=== PATIENT | female | born 1950 | race Caucasian/White ===

== ENCOUNTER → 2016-10-31 | Outpatient (REF) | payer MEDICARE, MEDICAID ==
[~2016-10-31] MED LIST: /ONDA4TA SL; AMOX875T PO; BACIDCA PO; BACITAB3 PO; CALC25TA PO; CELE20TA PO; CETI10TA PO; COMP1TAB PO; CYCL1CAP2 PO; DEXTPOW57 IV; DICY20TA PO; DICY20TA11 PO; DRIS50002 PO; EPOG1000 IV; FLAG500T PO; FLON0.054; FLOV110A IN; FLOVENT INH; FLUT11IN INH; GABI4TAB PO; GAS80CHW PO; GLUC1INJ2 SC; GLUC4CHW PO; GLYC3350 PO; INSUH10VL SC; IPRASOL4 NEB; LEVO100T5 PO; LISI40TAB PO; MEGE400S9 PO; METO25TAB PO; METO50TA2 PO; NEUR600T PO; NYST50SS SS; OCEA0.654; OXYC1TAB23 PO; PEG1POW PO; PERCOCET PO; PHEN1SUP6 IV; PRAV40TA PO; PRED50TA PO; PRED5TA PO; PRIN5TAB PO; PROA1AER INH; PROAAER IN; PROB1TAB PO; PROBCAP4 PO; PROC5TA PO; PROT1TAB2 PO; ROBISYP5 PO; SALI0.9I2 IV; SPIR25TA2 PO; STOO100C PO; SULF1TAB72 PO; SYNT100T PO; SYNT125T PO; TYLE167L PO; ULTR50TA PO; VANC12CA PO; VERA120T2 PO; VERA1TAB10 PO; ZOFR20TA PO; ZOFR4SOL IV; ZYRT10TA2 PO; cytoxan PO
[2016-10-31 10:31] LABS: INR 3.04
== END ==
PROVIDERS: ATTEND Family Medicine
DX: Z51.81 Encounter for therapeutic drug level monitoring (principal); Z79.01 Long term (current) use of anticoagulants

== ENCOUNTER → 2016-11-07 | Outpatient (REF) | payer MEDICARE, MEDICAID ==
[2016-11-07 10:24] LABS: INR 3.41
== END ==
PROVIDERS: ATTEND Student in an Organized Health Care Education/Training Program
DX: Z51.81 Encounter for therapeutic drug level monitoring (principal); Z79.01 Long term (current) use of anticoagulants

== ENCOUNTER 2016-11-28 14:46 | Emergency (ER) | payer MEDICARE, MEDICAID ==
--- NOTE | 2016-11-28 16:03 | REP ---
Left ankle four views: There is no fracture or dislocation. There is diffuse demineralization Mineralization and joint spaces are normal. There are no calcifications or foreign bodies. Impression: There is diffuse demineralization. No fracture or dislocation. Signed by Karan Mclain MD 11/28/2016 03:54 P
--- NOTE | 2016-11-28 16:08 | EDDOCDS ---
Nurse's Notes [facility] Name: Rocío Jim Age: 65 yrs Sex: Female : 1950 Arrival Date: 11/28/2016 Time: 14:46 Bed TR8 Private MD: Jovita Cantu Diagnosis: Sprain of unspecified ligament of left ankle Presentation: 11/28 14:50 Presenting complaint: Patient states: turned her left ankle a while ago (11am today) hs1 and patient states that the nurse thought she should have it looked at as patient was limping. The patients lower extremity has obvious swelling present on examination. The charge nurse has been notified. Adult Sepsis Screening: The patient does not have new or worsening altered mentation. Patient's respiratory rate is less than 22. Systolic blood pressure is greater than 100. Patient has a qSOFA score of 0- Negative Sepsis Screen. Suicide/Homicide risk assessment- the patient denies having any suicidal and/or homicidal ideations and does not present with any other emotional, behavioral or mental health complaints. Status: Patient is not a financial services consultant or dependent. Transition of care: patient was received from [facility]-assisted. 14:50 Acuity: OVI Level 4 hs1 14:50 Method Of Arrival: Walkin/Carried/Asstd hs1 Triage Assessment: 15:03 General: Appears in no apparent distress, Behavior is appropriate for age, cooperative. hs1 Pain: Location: anterior aspect of left ankle Pain currently is 0 out of 10 on a pain scale. Quality of pain is described as aching, pain is only when standing. Musculoskeletal: Capillary refill < 3 seconds No deformity noted Reports not being able to stand on left ankle. Historical: - Allergies: Fiorinal; - Home Meds: 1. acetaminophen 325 mg Oral tab 2 tabs as needed (Last dose: 11/28/2016 05:00) 2. Compazine 10 mg Oral tab as needed (Last dose: 11/28/2016 05:00) 3. Protonix 40 mg Oral TbEC 1 tab 2 times per day (Last dose: 11/28/2016 05:00) 4. Steph-Yovani 0.8 mg oral tab daily (Last dose: 11/28/2016 05:00) 5. Bentyl 20 mg Oral tab 1 tab 4 times per day (Last dose: 11/28/2016 12:00) 6. Flovent Inhl 110 mcg twice a day (Last dose: 11/28/2016 05:00) 7. Bacid 1 billion-250 cell-mg oral tab daily (Last dose: 11/28/2016 05:00) 8. Fish Oil 300-1,000 mg Oral cpDR 9. Calcium + Vitamin D 600 mg calcium- 200 unit Oral tab 10. levothyroxine 150 mcg Oral tab 1 tab once daily (Last dose: 11/28/2016 05:00) 11. metoprolol tartrate 50 mg Oral tab 1 tab 2 times per day (Last dose: 11/28/2016 05:00) 12. Gabitril 4 mg oral tab 1 tab once daily (Last dose: 11/28/2016 11:00) 13. prednisone 5 mg/5 mL Oral soln once daily (Last dose: 11/28/2016 11:00) 14. Renvela 800 mg oral tab 1 tab 3 times per day (Last dose: 11/28/2016 11:00) 15. Mucinex 600 mg oral Ta12 twice a day (Last dose: 11/28/2016 05:00) 16. Pravachol 40 mg Oral tab 1 tab once daily (Last dose: 11/27/2016) 17. Refresh P.M. 57.3-42.5 % ophthalmic oint daily (Last dose: 11/27/2016) 18. Vitamin B-12 Oral Unknown nightly (Last dose: 11/27/2016) - PMHx: CAUDA EQUINA SYNDROME; COPD; ESRD; Hypertension; Renal Failure with Dialysis; - PSHx: Thyroidectomy; Appendectomy; Hysterectomy; back surgery; - Social history: Smoking status: Patient states former smoker of tobacco. No barriers to communication noted, The patient speaks fluent Jordanian, Speaks appropriately for age. - Family history: Not pertinent. - : The pt / caregiver states he / she is not on anticoagulants. Home medication list is obtained from the facility DEC. - Exposure Risk Screening:: None identified. Screenin:06 Screening information is obtained from the patient. Fall risk: No risks identified. mlb1 Assistance ADL's: requires no assistance with activities of daily living. Abuse/DV Screen: The patient / caregiver reports he/she is: not in a situation that causes fear, pain or injury. Nutritional screening: No deficits noted. Advance Directives: Currently, there is no health care proxy. home support is adequate. Assessment: 16:05 General: Appears in no apparent distress, comfortable, Behavior is appropriate for age, mlb1 cooperative. Pain: Location: left ankle Pain currently is 4 out of 10 on a pain scale. Musculoskeletal: Circulation, motion, and sensation intact Signs and Symptoms of Compartment Syndrome: no signs of compartment syndrome. Vital Signs: 14:49 BP 163 / 73; Pulse 85; Resp 18 S; Temp 98.9(O); Pulse Ox 97% on R/A; Weight 67.13 kg gr2 (R); Height 5 ft. 6 in. (167.64 cm) (R); Pain 5/10; 16:00 BP 180 / 94 LA Sitting (auto/lg); Pulse 81; Resp 20; Temp 99.1; Pulse Ox 95% on R/A; bnb Pain 8/10; 14:49 Body Mass Index 23.89 (67.13 kg, 167.64 cm) gr2 Vitals: 14:49 Log In Time: November 28, 2016 at 14:49. gr2 ED Course: 14:48 Patient visited by Juanis Ruffin. gr2 14:48 Jovita Cantu MD is Private Physician. gr2 14:48 Patient moved to Waiting gr2 14:50 Patient visited by Juanis Ruffin. gr2 14:50 Patient moved to Pre RCE gr2 14:52 Triage Initiated hs1 15:35 Patient visited by Christie Carter RN. mk4 15:35 Patient moved to Triage 3 mk4 15:41 Marco [facility] Elkins FNP [facility]. ke 15:41 Patient visited by Marco A Elkins FNP. ke 15:41 Patient visited by Marco A Elkins FNP. ke 15:55 Jovita Cantu MD is Referral Physician. ke 15:58 Patient visited by Jocelyn Roa. dem1 15:58 AIRCAST APPLIED TO LT ANKLE. dem1 16:01 Patient visited by Leonarda Hennessy PCA. bnb 16:06 Patient moved to TR8 dem1 16:06 No IV's were initiated during this patient's visit. No procedures done that require mlb1 assistance. 16:07 The patient / caregiver is instructed regarding the plan of care and ED course. mlb1 Order Results: There are currently no results for this order. Outcome: 15:56 Discharge ordered by Provider. 16:06 Discharge Assessment: Patient awake, alert and oriented x 3. No cognitive and/or mlb1 functional deficits noted. Patient verbalized understanding of disposition instructions. patient administered narcotics - no. The following High Risk Discharge criteria are identified: None. Discharged to home ambulatory. Condition: good. Discharge instructions given to patient, Instructed on discharge instructions, follow up and referral plans. medication usage, Rest, Ice, Compression and Elevation. Demonstrated understanding of instructions, medications, Pt was receptive of discharge instructions/ teaching. Prescriptions given X. No special radiology studies were completed. Property sent home with patient. 16:07 Patient left the ED. mlb1 Signatures: Marco A Elkins, CHAIR UPHOLSTERER CHAIR UPHOLSTERER Clinton Mcgill RN RN mlb1 Kim Fournier, RN RN hs1 Jocelyn Roa1 Juanis Ruffin2 Christie Carter RN RN mk4 Leonarda Hennessy, OUTDOOR RECREATION SPECIALIST OUTDOOR RECREATION SPECIALIST bnb Corrections: (The following items were deleted from the chart) 14:53 14:50 Presenting complaint: Patient states: turned her left ankle a while ago (11am hs1 today) and patient states that the nurse thought she should have it looked at as patient cannot bear weight. hs1 MTDD
--- NOTE | 2016-11-28 16:08 | EDDOCDS ---
Physician Documentation [facility] Name: Rocío Jim Age: 65 yrs Sex: Female : 1950 Arrival Date: 11/28/2016 Time: 14:46 Bed TR8 Private MD: Jovita Cantu Disposition: 11/28/16 15:56 Discharged to Home/Self Care. Impression: Sprain of unspecified ligament of left ankle. - Condition is Stable. - Discharge Instructions: Elastic Bandage and RICE, Ankle Sprain. - Medication Reconciliation, Local Pharmacy Hours form. - Follow up: Jovita Cantu MD; When: As needed; Reason: Continuance of care. - Problem is an ongoing problem. - Symptoms are unchanged. Historical: - Allergies: Fiorinal; - Home Meds: 1. acetaminophen 325 mg Oral tab 2 tabs as needed (Last dose: 11/28/2016 05:00) 2. Compazine 10 mg Oral tab as needed (Last dose: 11/28/2016 05:00) 3. Protonix 40 mg Oral TbEC 1 tab 2 times per day (Last dose: 11/28/2016 05:00) 4. Steph-Yovani 0.8 mg oral tab daily (Last dose: 11/28/2016 05:00) 5. Bentyl 20 mg Oral tab 1 tab 4 times per day (Last dose: 11/28/2016 12:00) 6. Flovent Inhl 110 mcg twice a day (Last dose: 11/28/2016 05:00) 7. Bacid 1 billion-250 cell-mg oral tab daily (Last dose: 11/28/2016 05:00) 8. Fish Oil 300-1,000 mg Oral cpDR 9. Calcium + Vitamin D 600 mg calcium- 200 unit Oral tab 10. levothyroxine 150 mcg Oral tab 1 tab once daily (Last dose: 11/28/2016 05:00) 11. metoprolol tartrate 50 mg Oral tab 1 tab 2 times per day (Last dose: 11/28/2016 05:00) 12. Gabitril 4 mg oral tab 1 tab once daily (Last dose: 11/28/2016 11:00) 13. prednisone 5 mg/5 mL Oral soln once daily (Last dose: 11/28/2016 11:00) 14. Renvela 800 mg oral tab 1 tab 3 times per day (Last dose: 11/28/2016 11:00) 15. Mucinex 600 mg oral Ta12 twice a day (Last dose: 11/28/2016 05:00) 16. Pravachol 40 mg Oral tab 1 tab once daily (Last dose: 11/27/2016) 17. Refresh P.M. 57.3-42.5 % ophthalmic oint daily (Last dose: 11/27/2016) 18. Vitamin B-12 Oral Unknown nightly (Last dose: 11/27/2016) - PMHx: CAUDA EQUINA SYNDROME; COPD; ESRD; Hypertension; Renal Failure with Dialysis; - PSHx: Thyroidectomy; Appendectomy; Hysterectomy; back surgery; - Social history: Smoking status: Patient states former smoker of tobacco. No barriers to communication noted, The patient speaks fluent Canadian, Speaks appropriately for age. - Family history: Not pertinent. - : The pt / caregiver states he / she is not on anticoagulants. Home medication list is obtained from the facility DEC. - Exposure Risk Screening:: None identified. Vital Signs: 11/28 14:49 BP 163 / 73; Pulse 85; Resp 18 S; Temp 98.9(O); Pulse Ox 97% on R/A; Weight 67.13 kg / gr2 148 lbs (R); Height 5 ft. 6 in. (167.64 cm) (R); Pain 5/10; 16:00 BP 180 / 94 LA Sitting (auto/lg); Pulse 81; Resp 20; Temp 99.1; Pulse Ox 95% on R/A; bnb Pain 8/10; 14:49 Body Mass Index 23.89 (67.13 kg, 167.64 cm) gr2 MDM: 15:20 Ankle, Complete Ordered. EDMS 15:52 Apply Air Cast to Patient. ordered. ritchie Signatures: Dispatcher [employer] EDMS Marco A Elkins, VINNY JAMAP Clinton Mcgill RN RN mlb1 Kim Fournier RN RN hs1 MTDD
--- NOTE | 2016-11-30 17:08 | EDDOCDS ---
Physician Documentation [facility] Name: Rocío Jim Age: 65 yrs Sex: Female : 1950 Arrival Date: 11/28/2016 Time: 14:46 Bed TR8 Private MD: Jovita Cantu Disposition: 11/28/16 15:56 Discharged to Home/Self Care. Impression: Sprain of unspecified ligament of left ankle. - Condition is Stable. - Discharge Instructions: Elastic Bandage and RICE, Ankle Sprain. - Medication Reconciliation, Local Pharmacy Hours form. - Follow up: Jovita Cantu MD; When: As needed; Reason: Continuance of care. - Problem is an ongoing problem. - Symptoms are unchanged. Historical: - Allergies: Fiorinal; - Home Meds: 1. acetaminophen 325 mg Oral tab 2 tabs as needed (Last dose: 11/28/2016 05:00) 2. Compazine 10 mg Oral tab as needed (Last dose: 11/28/2016 05:00) 3. Protonix 40 mg Oral TbEC 1 tab 2 times per day (Last dose: 11/28/2016 05:00) 4. Steph-Yovani 0.8 mg oral tab daily (Last dose: 11/28/2016 05:00) 5. Bentyl 20 mg Oral tab 1 tab 4 times per day (Last dose: 11/28/2016 12:00) 6. Flovent Inhl 110 mcg twice a day (Last dose: 11/28/2016 05:00) 7. Bacid 1 billion-250 cell-mg oral tab daily (Last dose: 11/28/2016 05:00) 8. Fish Oil 300-1,000 mg Oral cpDR 9. Calcium + Vitamin D 600 mg calcium- 200 unit Oral tab 10. levothyroxine 150 mcg Oral tab 1 tab once daily (Last dose: 11/28/2016 05:00) 11. metoprolol tartrate 50 mg Oral tab 1 tab 2 times per day (Last dose: 11/28/2016 05:00) 12. Gabitril 4 mg oral tab 1 tab once daily (Last dose: 11/28/2016 11:00) 13. prednisone 5 mg/5 mL Oral soln once daily (Last dose: 11/28/2016 11:00) 14. Renvela 800 mg oral tab 1 tab 3 times per day (Last dose: 11/28/2016 11:00) 15. Mucinex 600 mg oral Ta12 twice a day (Last dose: 11/28/2016 05:00) 16. Pravachol 40 mg Oral tab 1 tab once daily (Last dose: 11/27/2016) 17. Refresh P.M. 57.3-42.5 % ophthalmic oint daily (Last dose: 11/27/2016) 18. Vitamin B-12 Oral Unknown nightly (Last dose: 11/27/2016) - PMHx: CAUDA EQUINA SYNDROME; COPD; ESRD; Hypertension; Renal Failure with Dialysis; - PSHx: Thyroidectomy; Appendectomy; Hysterectomy; back surgery; - Social history: Smoking status: Patient states former smoker of tobacco. No barriers to communication noted, The patient speaks fluent Djiboutian, Speaks appropriately for age. - Family history: Not pertinent. - : The pt / caregiver states he / she is not on anticoagulants. Home medication list is obtained from the facility DEC. - Exposure Risk Screening:: None identified. Vital Signs: 11/28 14:49 BP 163 / 73; Pulse 85; Resp 18 S; Temp 98.9(O); Pulse Ox 97% on R/A; Weight 67.13 kg / gr2 148 lbs (R); Height 5 ft. 6 in. (167.64 cm) (R); Pain 5/10; 16:00 BP 180 / 94 LA Sitting (auto/lg); Pulse 81; Resp 20; Temp 99.1; Pulse Ox 95% on R/A; bnb Pain 8/10; 14:49 Body Mass Index 23.89 (67.13 kg, 167.64 cm) gr2 MDM: 15:20 Ankle, Complete Ordered. EDMS 15:52 Apply Air Cast to Patient. ordered. ritchie 11/29 11:26 T-Sheet-- Draft Copy was scanned into [employer] and attached to record. gb Signatures: Dispatcher [employer] EDIL Suki August, Reg Reg Marco A Bhat, DRUPAL ARCHITECT DRUPAL ARCHITECT Clinton Mcgill, RN RN mlb1 Kim Fournier RN RN hs1 The chart was reviewed and I authenticate all verbal orders and agree with the evaluation and treatment provided.Attachments: 11:26 T-Sheet-- Draft Copy gb Chart Complete MTDD
--- NOTE | 2016-11-30 17:08 | EDDOCDS ---
Physician Documentation [facility] Name: Rocío Jim Age: 65 yrs Sex: Female : 1950 Arrival Date: 11/28/2016 Time: 14:46 Bed TR8 Private MD: Jovita Cantu Disposition: 11/28/16 15:56 Discharged to Home/Self Care. Impression: Sprain of unspecified ligament of left ankle. - Condition is Stable. - Discharge Instructions: Elastic Bandage and RICE, Ankle Sprain. - Medication Reconciliation, Local Pharmacy Hours form. - Follow up: Jovita Cantu MD; When: As needed; Reason: Continuance of care. - Problem is an ongoing problem. - Symptoms are unchanged. Historical: - Allergies: Fiorinal; - Home Meds: 1. acetaminophen 325 mg Oral tab 2 tabs as needed (Last dose: 11/28/2016 05:00) 2. Compazine 10 mg Oral tab as needed (Last dose: 11/28/2016 05:00) 3. Protonix 40 mg Oral TbEC 1 tab 2 times per day (Last dose: 11/28/2016 05:00) 4. Steph-Yovani 0.8 mg oral tab daily (Last dose: 11/28/2016 05:00) 5. Bentyl 20 mg Oral tab 1 tab 4 times per day (Last dose: 11/28/2016 12:00) 6. Flovent Inhl 110 mcg twice a day (Last dose: 11/28/2016 05:00) 7. Bacid 1 billion-250 cell-mg oral tab daily (Last dose: 11/28/2016 05:00) 8. Fish Oil 300-1,000 mg Oral cpDR 9. Calcium + Vitamin D 600 mg calcium- 200 unit Oral tab 10. levothyroxine 150 mcg Oral tab 1 tab once daily (Last dose: 11/28/2016 05:00) 11. metoprolol tartrate 50 mg Oral tab 1 tab 2 times per day (Last dose: 11/28/2016 05:00) 12. Gabitril 4 mg oral tab 1 tab once daily (Last dose: 11/28/2016 11:00) 13. prednisone 5 mg/5 mL Oral soln once daily (Last dose: 11/28/2016 11:00) 14. Renvela 800 mg oral tab 1 tab 3 times per day (Last dose: 11/28/2016 11:00) 15. Mucinex 600 mg oral Ta12 twice a day (Last dose: 11/28/2016 05:00) 16. Pravachol 40 mg Oral tab 1 tab once daily (Last dose: 11/27/2016) 17. Refresh P.M. 57.3-42.5 % ophthalmic oint daily (Last dose: 11/27/2016) 18. Vitamin B-12 Oral Unknown nightly (Last dose: 11/27/2016) - PMHx: CAUDA EQUINA SYNDROME; COPD; ESRD; Hypertension; Renal Failure with Dialysis; - PSHx: Thyroidectomy; Appendectomy; Hysterectomy; back surgery; - Social history: Smoking status: Patient states former smoker of tobacco. No barriers to communication noted, The patient speaks fluent Grenadian, Speaks appropriately for age. - Family history: Not pertinent. - : The pt / caregiver states he / she is not on anticoagulants. Home medication list is obtained from the facility DEC. - Exposure Risk Screening:: None identified. Vital Signs: 11/28 14:49 BP 163 / 73; Pulse 85; Resp 18 S; Temp 98.9(O); Pulse Ox 97% on R/A; Weight 67.13 kg / gr2 148 lbs (R); Height 5 ft. 6 in. (167.64 cm) (R); Pain 5/10; 16:00 BP 180 / 94 LA Sitting (auto/lg); Pulse 81; Resp 20; Temp 99.1; Pulse Ox 95% on R/A; bnb Pain 8/10; 14:49 Body Mass Index 23.89 (67.13 kg, 167.64 cm) gr2 MDM: 15:20 Ankle, Complete Ordered. EDMS 15:52 Apply Air Cast to Patient. ordered. ritchie 11/29 11:26 T-Sheet-- Draft Copy was scanned into [employer] and attached to record. gb Signatures: Dispatcher [employer] EDPR Suki August, Reg Reg Marco A Bhat, FIRE BATTALION CHIEF FIRE BATTALION CHIEF Clinton Mcgill, RN RN mlb1 Kim Fournier RN RN hs1 The chart was reviewed and I authenticate all verbal orders and agree with the evaluation and treatment provided.Attachments: 11:26 T-Sheet-- Draft Copy gb Chart Complete MTDD
--- NOTE | 2016-11-30 17:08 | EDDOCDS ---
Nurse's Notes [facility] Name: Rocío Jim Age: 65 yrs Sex: Female : 1950 Arrival Date: 11/28/2016 Time: 14:46 Bed TR8 Private MD: Jovita Cantu Diagnosis: Sprain of unspecified ligament of left ankle Presentation: 11/28 14:50 Presenting complaint: Patient states: turned her left ankle a while ago (11am today) hs1 and patient states that the nurse thought she should have it looked at as patient was limping. The patients lower extremity has obvious swelling present on examination. The charge nurse has been notified. Adult Sepsis Screening: The patient does not have new or worsening altered mentation. Patient's respiratory rate is less than 22. Systolic blood pressure is greater than 100. Patient has a qSOFA score of 0- Negative Sepsis Screen. Suicide/Homicide risk assessment- the patient denies having any suicidal and/or homicidal ideations and does not present with any other emotional, behavioral or mental health complaints. 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 Transition of care: patient was received from [facility]-assisted. 14:50 Acuity: OVI Level 4 hs1 14:50 Method Of Arrival: Walkin/Carried/Asstd hs1 Triage Assessment: 15:03 General: Appears in no apparent distress, Behavior is appropriate for age, cooperative. hs1 Pain: Location: anterior aspect of left ankle Pain currently is 0 out of 10 on a pain scale. Quality of pain is described as aching, pain is only when standing. Musculoskeletal: Capillary refill < 3 seconds No deformity noted Reports not being able to stand on left ankle. Historical: - Allergies: Fiorinal; - Home Meds: 1. acetaminophen 325 mg Oral tab 2 tabs as needed (Last dose: 11/28/2016 05:00) 2. Compazine 10 mg Oral tab as needed (Last dose: 11/28/2016 05:00) 3. Protonix 40 mg Oral TbEC 1 tab 2 times per day (Last dose: 11/28/2016 05:00) 4. Steph-Yovani 0.8 mg oral tab daily (Last dose: 11/28/2016 05:00) 5. Bentyl 20 mg Oral tab 1 tab 4 times per day (Last dose: 11/28/2016 12:00) 6. Flovent Inhl 110 mcg twice a day (Last dose: 11/28/2016 05:00) 7. Bacid 1 billion-250 cell-mg oral tab daily (Last dose: 11/28/2016 05:00) 8. Fish Oil 300-1,000 mg Oral cpDR 9. Calcium + Vitamin D 600 mg calcium- 200 unit Oral tab 10. levothyroxine 150 mcg Oral tab 1 tab once daily (Last dose: 11/28/2016 05:00) 11. metoprolol tartrate 50 mg Oral tab 1 tab 2 times per day (Last dose: 11/28/2016 05:00) 12. Gabitril 4 mg oral tab 1 tab once daily (Last dose: 11/28/2016 11:00) 13. prednisone 5 mg/5 mL Oral soln once daily (Last dose: 11/28/2016 11:00) 14. Renvela 800 mg oral tab 1 tab 3 times per day (Last dose: 11/28/2016 11:00) 15. Mucinex 600 mg oral Ta12 twice a day (Last dose: 11/28/2016 05:00) 16. Pravachol 40 mg Oral tab 1 tab once daily (Last dose: 11/27/2016) 17. Refresh P.M. 57.3-42.5 % ophthalmic oint daily (Last dose: 11/27/2016) 18. Vitamin B-12 Oral Unknown nightly (Last dose: 11/27/2016) - PMHx: CAUDA EQUINA SYNDROME; COPD; ESRD; Hypertension; Renal Failure with Dialysis; - PSHx: Thyroidectomy; Appendectomy; Hysterectomy; back surgery; - Social history: Smoking status: Patient states former smoker of tobacco. No barriers to communication noted, The patient speaks fluent Swazi, Speaks appropriately for age. - Family history: Not pertinent. - : The pt / caregiver states he / she is not on anticoagulants. Home medication list is obtained from the facility DEC. - Exposure Risk Screening:: None identified. Screenin:06 Screening information is obtained from the patient. Fall risk: No risks identified. mlb1 Assistance ADL's: requires no assistance with activities of daily living. Abuse/DV Screen: The patient / caregiver reports he/she is: not in a situation that causes fear, pain or injury. Nutritional screening: No deficits noted. Advance Directives: Currently, there is no health care proxy. home support is adequate. Assessment: 16:05 General: Appears in no apparent distress, comfortable, Behavior is appropriate for age, mlb1 cooperative. Pain: Location: left ankle Pain currently is 4 out of 10 on a pain scale. Musculoskeletal: Circulation, motion, and sensation intact Signs and Symptoms of Compartment Syndrome: no signs of compartment syndrome. Vital Signs: 14:49 BP 163 / 73; Pulse 85; Resp 18 S; Temp 98.9(O); Pulse Ox 97% on R/A; Weight 67.13 kg gr2 (R); Height 5 ft. 6 in. (167.64 cm) (R); Pain 5/10; 16:00 BP 180 / 94 LA Sitting (auto/lg); Pulse 81; Resp 20; Temp 99.1; Pulse Ox 95% on R/A; bnb Pain 8/10; 14:49 Body Mass Index 23.89 (67.13 kg, 167.64 cm) gr2 Vitals: 14:49 Log In Time: November 28, 2016 at 14:49. gr2 ED Course: 14:48 Patient visited by Juanis Ruffin. gr2 14:48 Jovita Cantu MD is Private Physician. gr2 14:48 Patient moved to Waiting gr2 14:50 Patient visited by Juanis Ruffin. gr2 14:50 Patient moved to Pre RCE gr2 14:52 Triage Initiated hs1 15:35 Patient visited by Christie Carter RN. mk4 15:35 Patient moved to Triage 3 mk4 15:41 [facility] ke 15:41 Patient visited by Marco A Elkins FNP. ke 15:41 Patient visited by Marco A Elkins FNP. ke 15:55 Jovita Cantu MD is Referral Physician. ke 15:58 Patient visited by Jocelyn Roa. dem1 15:58 AIRCAST APPLIED TO LT ANKLE. dem1 16:01 Patient visited by Leonarda Hennessy PCA. bnb 16:06 Patient moved to TR8 dem1 16:06 No IV's were initiated during this patient's visit. No procedures done that require mlb1 assistance. 16:07 The patient / caregiver is instructed regarding the plan of care and ED course. mlb1 16:27 Ankle, Complete Returned. [facility] 11/29 11:26 T-Sheet-- Draft Copy was scanned into [email or web address] and attached to record. Order Results: Radiology Order: Ankle, Complete Test: Ankle, Complete REASON FOR EXAMINATION: Trauma; Left ankle four views:; ; ; ; There is no fracture or dislocation. There is diffuse demineralization; ; Mineralization and joint spaces are normal.; ; There are no calcifications or foreign bodies.; ; Impression:; ; There is diffuse demineralization. No fracture or dislocation.; ; ; ; Signed by; Karan Mclain MD 11/28/2016 03:54 P; Outcome: 11/28 15:56 Discharge ordered by Provider. 16:06 Discharge Assessment: Patient awake, alert and oriented x 3. No cognitive and/or mlb1 functional deficits noted. Patient verbalized understanding of disposition instructions. patient administered narcotics - no. The following High Risk Discharge criteria are identified: None. Discharged to home ambulatory. Condition: good. Discharge instructions given to patient, Instructed on discharge instructions, follow up and referral plans. medication usage, Rest, Ice, Compression and Elevation. Demonstrated understanding of instructions, medications, Pt was receptive of discharge instructions/ teaching. Prescriptions given X. No special radiology studies were completed. Property sent home with patient. 16:07 Patient left the ED. mlb1 Signatures: Dispatcher [facility] Suki August, Reg Reg Marco A Bhat, BAR HOST/HOSTESS BAR HOST/HOSTESS Clinton Mcgill RN RN mlb1 Kim Fournier RN RN hs1 Jocelyn Roa1 Juanis Ruffin2 Christie Carter RN RN mk4 Leonarda Hennessy, PACKING ATTENDANT PACKING ATTENDANT bnb Corrections: (The following items were deleted from the chart) 14:53 14:50 Presenting complaint: Patient states: turned her left ankle a while ago (11am hs1 today) and patient states that the nurse thought she should have it looked at as patient cannot bear weight. hs1 Chart Complete MTDD
== END 2016-11-28 16:07 | disposition home or self-care (01) ==
LOC: M ED 14:46
DX: S93.402A Sprain of unspecified ligament of left ankle, initial encounter (principal); X50.9XXA Other and unspecified overexertion or strenuous movements or postures, initial encounter; Y92.89 Other specified places as the place of occurrence of the external cause; Y93.01 Activity, walking, marching and hiking; Y99.8 Other external cause status; G83.4 Cauda equina syndrome; J44.9 Chronic obstructive pulmonary disease, unspecified; I12.0 Hypertensive chronic kidney disease with stage 5 chronic kidney disease or end stage renal disease; N18.6 End stage renal disease; Z99.2 Dependence on renal dialysis; Z87.891 Personal history of nicotine dependence; Z79.52 Long term (current) use of systemic steroids; Z79.899 Other long term (current) drug therapy; Z88.8 Allergy status to other drugs, medicaments and biological substances

== ENCOUNTER → 2016-12-20 | Outpatient (CLI) | payer MEDICARE, MEDICAID ==
[~2016-12-20] MED LIST changes: +ACET-654 PO; +ALBU17IN INH; +ALL10TAB27 PO; +ARTI99.0 OU; +B-12100010 PO; +CALCTAB68 PO; +CALTCHW5 PO; +CYCL5TA PO; +FISH1000 PO; +FLON1SPR; +GASTROGRAFIN SOLUTION 30ML (Q9963) As Ordered ONE; +GUAI1SYP8 PO; +HYDR-3713 PO; +IMOD2TAB16 PO; +ISOVUE-370 76% 100ML VIAL (Q9967) As Ordered ONE; +LEVO125T41 PO; +LIDO1CRE14 TOP; +LOSA50TA20 PO; +MUCI600T34 PO; +PRAV40TA2 PO; +PROC10TA PO; +REFROIN OU; +RENATAB5 PO; +RENV2TAB PO; +SIME80TA PO; +SODI15SS PO; +VITA10002 PO
--- NOTE | 2016-12-20 16:05 | REP ---
CT study of the abdomen and pelvis without and with IV contrast: With oral contrast: History: Pancreatitis. Patient on renal dialysis. Comparison CT study is from 08/05/2015. CT contrast dose: 100 mL of Isovue-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 Bowel gas pattern is otherwise unremarkable. The patient is status post upper lumbar and mid lumbar spine fusion. The lung bases show a noncalcified 1.1 cm right lower lobe pulmonary nodule. This appears to be a new finding. It was not present on 08/05/[address] images or on 12/23/[address] images. It is smoothly marginated and rounded. There is a second 4 mm noncalcified subpleural pulmonary nodule in the right lower lobe on the same slice. This also appears to be a new finding. Pulmonary metastatic or possibly primary neoplastic disease suspected. The liver and the spleen are normal in size homogeneous in texture. No hepatic mass lesion is seen. No adrenal lesion is observed on either side. The pancreas and gallbladder are intact. There is spray artifact from the metallic components of the thoracolumbar spine fusion procedure. No retroperitoneal mass or adenopathy is seen. Abdominal aorta is normal in caliber. Small and large intestinal bowel loops are unremarkable in the abdomen and pelvis. Urinary bladder appears intact. The patient status post hysterectomy. No pelvic mass or adenopathy is seen. No bony destructive lesion is appreciated. There is however an area of sclerosis a long the iliac crest on the right. I cannot exclude a blastic skeletal metastatic process. Insufficiency fracture and bone changes associated with chronic renal dialysis are also in the differential. Consider radionuclide bone scan. Impression: 1. New 1.1 cm nodule in the right lower lobe. New 0.4 cm nodule in the right lower lobe of the lung. Question pulmonary metastatic disease. Consider chest CT. 2. New area of sclerosis in the right iliac crest. Blastic metastasis versus renal osteodystrophy osteomalacia versus insufficiency fracture. Consider bone scan. 3. Pancreas is morphologically normal by CT imaging. No acute intraabdominal abnormality. Signed by Reynaldo Alcala MD 12/20/2016 05:24 P
== END ==
LOC: M RAD 12:37
PROVIDERS: ATTEND Internal Medicine Nephrology
DX: R91.8 Other nonspecific abnormal finding of lung field (principal); R10.9 Unspecified abdominal pain
CPT/HCPCS: 74177; Q9963; Q9967

== ENCOUNTER 2016-12-22 11:34 | Inpatient (IN) | payer MEDICARE, MEDICAID ==
[~2016-12-22] VITALS: Ht 167.6 cm; Wt 68.4 kg
[~2016-12-22 11:34] MED LIST changes: -ACET-654 PO; -ALBU17IN INH; -ALL10TAB27 PO; -ARTI99.0 OU; -B-12100010 PO; -CALCTAB68 PO; -CALTCHW5 PO; -CYCL5TA PO; -FISH1000 PO; -FLON1SPR; -GASTROGRAFIN SOLUTION 30ML (Q9963) As Ordered ONE; -GUAI1SYP8 PO; -HYDR-3713 PO; -IMOD2TAB16 PO; -ISOVUE-370 76% 100ML VIAL (Q9967) As Ordered ONE; -LEVO125T41 PO; -LIDO1CRE14 TOP; -LOSA50TA20 PO; -MUCI600T34 PO; -PRAV40TA2 PO; -PROC10TA PO; -REFROIN OU; -RENATAB5 PO; -RENV2TAB PO; -SIME80TA PO; -SODI15SS PO; -VITA10002 PO
[2016-12-22] MEDS: TIAGABINE 4 MG PO SCH (12:00)
[2016-12-22] MEDS ORDERED: NS 1,000 ML IV SCH (12:26)
[2016-12-22] MEDS ORDERED: ONDANSETRON 4MG/2ML VIAL (J2405) IV ONE (12:30)
[2016-12-22] MEDS ORDERED: MORPHINE 2 MG/ML 1ML SYRINGE IV ONE (12:30)
[2016-12-22] MEDS ORDERED: ACETAMINOPHEN 325 MG TAB PO ONE (12:30)
[2016-12-22] MEDS ORDERED: PROC5TA PO (12:37)
[2016-12-22] MEDS ORDERED: METO50TA2 PO ×4 (12:37→16:01)
[2016-12-22] MEDS ORDERED: FLUT11IN INH ×2 (12:37→16:28)
[2016-12-22] MEDS ORDERED: HYDR-3713 PO ×2 (12:53→16:11)
[2016-12-22] MEDS ORDERED: GABI4TAB PO ×2 (12:53→16:28)
[2016-12-22] MEDS ORDERED: GUAI1SYP8 PO ×2 (12:53→16:28)
[2016-12-22] MEDS ORDERED: FISH1000 PO ×2 (12:53→16:28)
[2016-12-22] MEDS ORDERED: CYCL5TA PO ×2 (12:53→16:28)
[2016-12-22] MEDS ORDERED: OXYC1TAB23 PO ×2 (12:53→16:11)
[2016-12-22] MEDS ORDERED: ALL10TAB27 PO (12:53)
[2016-12-22] MEDS ORDERED: CALTCHW5 PO (12:53)
[2016-12-22] MEDS ORDERED: BACITAB3 PO ×2 (12:53→16:28)
[2016-12-22] MEDS ORDERED: B-12100010 PO (12:53)
[2016-12-22] MEDS ORDERED: RENV2TAB PO ×2 (12:53→16:01)
[2016-12-22] MEDS ORDERED: LOSA50TA20 PO ×2 (12:53→16:07)
[2016-12-22] MEDS ORDERED: PRAV40TA2 PO ×2 (12:53→16:28)
[2016-12-22] MEDS ORDERED: MUCI600T34 PO ×2 (12:53→16:28)
[2016-12-22 13:15] LABS: BASO % 0.4 % (0.0-1.0); EOS # 0.3 K/mm3 (0.0-0.50); EOS % 3.2 % (0.0-3.0); LARGE UNSTAINED CELL # 0.1 K/mm3 (0.0-0.4); LARGE UNSTAINED CELL % 1.2 % (0.0-4.0); LYMPH # 0.8 K/mm3 (1.5-4.5); LYMPH % 7.8 % (24.0-44.0); MEAN CORPUSCULAR HEMOGLOBIN 28.8 pg (27.0-33.0); MEAN CORPUSCULAR HGB CONC 31.3 g/dl (32.0-36.5); MEAN CORPUSCULAR VOLUME 91.9 fl (80.0-96.0); MONO # 0.5 K/mm3 (0.0-0.8); MONO % 5.8 % (0.0-5.0); NEUTROPHILS % 81.6 % (36.0-66.0); PLATELET COUNT, AUTOMATED 183 k/mm3 (150-450); RED CELL DISTRIBUTION WIDTH 17.1 % (11.5-14.5); WHITE BLOOD COUNT 8.5 K/mm3 (4.0-10.0)
[2016-12-22 13:33] LABS: ALBUMIN 2.8 GM/DL (3.2-5.2); ALBUMIN/GLOBULIN RATIO 0.62 (1.00-1.93); BILIRUBIN,DIRECT 0.1 MG/DL (0.0-0.2); BILIRUBIN,TOTAL 0.6 MG/DL (0.2-1.0); CALCIUM LEVEL 9.2 MG/DL (8.8-10.2); CREATININE FOR GFR 4.02 MG/DL (0.55-1.02); GLOMERULAR FILTRATION RATE 11.9 (>45); POTASSIUM SERUM 3.8 MEQ/L (3.5-5.1); TOTAL PROTEIN 7.3 GM/DL (6.4-8.2)
--- NOTE | 2016-12-22 13:34 | REP ---
CHEST, TWO VIEWS: Two views of the chest are performed and compared to a prior study of 12/16/2015. There is dense opacity in the lateral left apex with an approximate maximum diameter 7 cm. This could represent an area of infiltrate but underlying mass cannot be excluded. There is mild right apical pleural thickening. No other areas of significant abnormal lung opacity are seen. The heart is normal in size and the mediastinal silhouette is unremarkable. Metallic rods and screws are seen in the lower thoracic and upper lumbar spine. IMPRESSION: Ill-defined opacity left apex may represent infiltrate but I cannot rule out underlying mass. Followup is suggested. Signed by Karan Aguilar MD 12/22/2016 08:32 P
[2016-12-22] MEDS ORDERED: ISOVUE-370 76% 100ML VIAL (Q9967) As Ordered ONE (13:58)
--- NOTE | 2016-12-22 15:09 | REP ---
CT STUDY OF THE CHEST WITH IV CONTRAST: HISTORY: Epigastric and left upper quadrant pain. Fever. Comparison chest CT study is from December 23, 2015. Comparison chest x-ray is from December 22, 2016 CT contrast dose: 100 mL of Isovue [address] FINDINGS: There is a large pleural-based mass in the apex of the left lung measuring 5.8 x 4.5 x 6.6 cm. There is interstitial infiltrate below this in the left upper lobe extending towards the hilum. There is another pleural based peripheral opacity which appears mass-like in the right upper lobe superolaterally. This measures 2.4 x 3.8 x 1.5 cm in diameter. There is old biapical pleuroparenchymal scarring. In addition, there is a new noncalcified 1.3 cm pulmonary nodule in the right lower lobe just above the diaphragm and there are two other subcentimeter noncalcified pulmonary nodules elsewhere in the right lower lobe. All of these findings are new when compared with the prior CT study of December 23, 2015. Metastatic disease is suspected. The large mass lesion in the left apex could be a primary neoplasm. There are two small air containing cavities within this lesion. There is no definite hilar or mediastinal lymphadenopathy. There are two or three AP window region lymph nodes along the left mediastinal contour, which are new when compared with the prior CT. These measure only 5 mm in short axis dimension. No other mediastinal nodes are visible. No axillary or other extrathoracic adenopathy or mass lesion is observed. Bone window settings show no bony destructive lesion. IMPRESSION: 6.6 cm mass in the left upper lobe with some interstitial infiltrative elsewhere in the left upper lobe. Smaller mass in the right apex. Multiple right lower lobe pulmonary nodules. These are new findings, and are suspicious for metastatic disease. No definite hilar or mediastinal mass or adenopathy. No vascular abnormality seen. Signed by Reynaldo Alcala MD 12/22/2016 04:47 P
--- NOTE | 2016-12-22 15:11 | REP ---
CT ABDOMEN AND PELVIS WITH IV AND ORAL CONTRAST: HISTORY: Epigastric pain, left upper quadrant pain, fever. Renal dialysis patient. CT contrast dose: 100 mL of Isovue 370 is administered intraven[address]. Comparison CT study abdomen and pelvis is from December 20, 2016. CT FINDINGS: The liver and spleen are normal in size homogeneous in texture. There is some previously administered intravenous contrast in the gallbladder lumen. No stone or polyp is seen. Pancreas remains morphologically intact. No adrenal lesion is seen. Atrophic otherwise unremarkable kidneys are seen bilaterally. Small and large intestinal bowel loops are unremarkable. No retroperitoneal mass or adenopathy is seen. The patient is status post hysterectomy. Urinary bladder is unremarkable. The sclerotic focus identified recently in the right iliac bone is again seen. Equivocal changes similar to this are seen in the left iliac bone. The patient is status post transpedicular screw placement and fusion across the lumbar spine from T12 to L4. The patient is status post vertebroplasty at L2. There is considerable loss of vertebral body height at L2. These findings are unchanged from a more remote prior CT study of August 05, 2015. There is no evidence of ascites or free air. IMPRESSION: Findings unchanged from the recent prior study of December 20, 2016. No acute intra-abdominal abnormality. Area of sclerosis in the iliac crest region on the right. Blastic metastasis versus renal osteodystrophy versus insufficiency fracture. Consider bone scan. Signed by Reynaldo Alcala MD 12/22/2016 04:52 P
[2016-12-22] MEDS ORDERED: CETI10TA PO (16:01)
[2016-12-22] MEDS ORDERED: LEVO125T41 PO (16:01)
[2016-12-22] MEDS ORDERED: LIDO1CRE14 TOP (16:07)
[2016-12-22] MEDS ORDERED: SODI15SS PO (16:07)
[2016-12-22] MEDS ORDERED: CALCTAB68 PO (16:11)
[2016-12-22] MEDS ORDERED: ARTI99.0 OU (16:28)
[2016-12-22] MEDS ORDERED: REFROIN OU (16:28)
[2016-12-22] MEDS ORDERED: SIME80TA PO (16:28)
[2016-12-22] MEDS ORDERED: FLON1SPR (16:28)
[2016-12-22] MEDS ORDERED: IMOD2TAB16 PO (16:28)
[2016-12-22] MEDS ORDERED: PROC10TA PO (16:28)
[2016-12-22] MEDS ORDERED: PRED5TA PO (16:28)
[2016-12-22] MEDS ORDERED: VITA10002 PO (16:28)
[2016-12-22] MEDS ORDERED: ALBU17IN INH (16:28)
[2016-12-22] MEDS ORDERED: ACET-654 PO (16:30)
[2016-12-22] MEDS ORDERED: DRIS50002 PO (16:30)
[2016-12-22] MEDS ORDERED: PROT1TAB2 PO (16:33)
[2016-12-22] MEDS ORDERED: RENATAB5 PO (16:33)
[2016-12-22] MEDS ORDERED: DICY20TA11 PO (16:33)
[2016-12-22] MEDS ORDERED: PERCOCET 5MG/325MG TAB PO PRN (17:15)
[2016-12-22] MEDS ORDERED: VANCOMYCIN HCL 1,000 MG, VIAL MATE ADAPTER 1 EACH in D5W 250 ML IV SCH (17:15)
[2016-12-22] MEDS ORDERED: PIPERACILLIN/TAZOBACTAM SOD 3.375 GM in D5W MINI-BAG PLUS 50 ML IV SCH (17:15)
[2016-12-22] MEDS ORDERED: POLYVINYL ALCOHOL OPHTH SOLN 15 ML(LIQUITEARS) OU PRN (17:15)
[2016-12-22] MEDS ORDERED: ALBUTEROL SULFATE 2.5 MG/0.5 ML INH NEB SOLN INH PRN (17:15)
[2016-12-22] MEDS ORDERED: CYCLOBENZAPRINE 5MG TABLET PO PRN (17:15)
[2016-12-22] MEDS: ONDANSETRON 4MG/2ML VIAL (J2405) IV PRN (18:51)
--- NOTE | 2016-12-22 18:55 | PHACANCOPD ---
PHARMACY VANCOMYCIN DOSING Pt Demographics Demographics Patient Age:66 , Weight: , Gender: female Adjusted Body Weight Date: 12/22/16, Adjusted Body Weight: [66.7] Kg Events Past 24 Hours Events Past 24 Hours: NO: Change in CrCl, Dialysis, Diuretic Therapy, Elevation in WBC, Fever, Other, Pending Diagnostics, Pending Procedures Vancomycin Vancomycin indication: HCAP Vancomycin Target Ranges: 10-20 mcg/ml Vancomycin Load Y/N: Yes Load Dose Date Time Vancomycin Load Dose: 1.25g Date: 12/22/16 Time: 20:00 Vancomycin Dose Date: 12/22/16. Current Vancomycin Dose: [750mg after hd] Intermittent Dosing?: No Labs Labs Item Value Date Time Creatinine 4.02 MG/DL H 12/22/16 1302 White Blood Count 8.5 K/mm3 12/22/16 1302 Micro Microbiology 12/22/16 Blood Culture, Received Pending 12/22/16 Blood Culture, Received Pending Creatinine Clearance Date:12/22/16. Creatinine Clearance: [13.76ml/min]. Pending Labs blood culture Assessment and Plan Maintaining Current Dose?: Yes Reason for dose change: No Dose Change Pharmacist Note Pharmacist Note Date: 12/22/16. Pharmacist note:Pt is a 66y/o female who receives HD on MWF. She has received vancomycin therapy here in the past 750mg on hd days will be continued. The patient is being treated for HCAP with a goal trough of 10-20mcg/ ml. A 1.25g loading dose was given 12/22 at 20:00. 750mg will be used as maintenance therapy on hd days. We will continue to monitor and adjust dose as needed. [facility] Dec 22, 2016 18:55
[2016-12-22] MEDS ORDERED: SLF 3 ML SYR IV PRN (19:30)
[2016-12-22] MEDS ORDERED: VANCOMYCIN HCL 750 MG, VIAL MATE ADAPTER 1 EACH in D5W 250 ML IV ONE (20:00)
[2016-12-22 20:19] VITALS: BP 130/59
[2016-12-22] MEDS: ACETAMINOPHEN TAB 650MG DOSE (2X325MG) PO PRN (20:46)
[2016-12-22] MEDS ORDERED: VANCOMYCIN HCL 500 MG in D5W MINI-BAG PLUS 100 ML IV ONE (21:00)
[2016-12-22] MEDS ORDERED: (RENVELA) SEVELAMER **CARBONate** 800 MG TAB PO SCH (21:00)
[2016-12-22] MEDS: FLUTICASONE HFA 110 MCG 12 GM INHALER (FLOVENT) INH SCH (21:00)
[2016-12-22] MEDS: ALBUTEROL SULFATE 2.5 MG/0.5 ML INH NEB SOLN INH SCH (21:09)
--- NOTE | 2016-12-22 21:23 | HPE ---
DATE OF ADMISSION: 12/22/2016 PRIMARY CARE PROVIDER: Dr. Cantu. [place]SE[place] KNITTER: Dr. Jenkins. ORTHOPAEDIC NURSE: Dr. Duong. CHIEF COMPLAINT: Not feeling well. SUMMARY OF PRESENTATION: This is a 66-year-old who has not been feeling well for 3-4 weeks. She started with left-sided rib pain which was underneath or at the bottom of her left rib cage. She had it every day. It was sharp, pleuritic, and has been consistent. She has had decreasing appetite, constant nausea. She has been able to drink, but any food makes her very nauseous. Has not been able to eat in the last couple of days. Has had chills and night sweats for a week. Has had fever for a couple of days. Fever at home was 100.2. She was unable to sleep last night and had dry heaves, could not lie on her left side due to chest discomfort and rib pain. Had a what was thought to be a mass identified, and I was called for admission. PAST MEDICAL HISTORY: Notable for hypertension, intercostal neuritis, hyperlipidemia, supraventricular tachycardia (SVT) for which she follows with Dr. Alves, vitamin D deficiency, iron deficiency, allergic rhinitis, gastroesophageal reflux disease (GERD), irritable bowel syndrome, hiatal hernia, diverticulitis, secondary hypothyroidism, osteonecrosis of the jaw, recurrent Clostridium (C.) difficile colitis, has required a stool transplant, Goodpasture disease, now on end-stage renal disease with hemodialysis, on chronic prednisone. Follows with Dr. Duong. Grade 1 diastolic dysfunction, asthma, chronic obstructive pulmonary disease (COPD)/Goodpasture disease with lung involvement, follows with Dr. Recio. ALLERGIES: PURINOL. PAST SURGICAL HISTORY: Notable for total abdominal hysterectomy and bilateral salpingo-oophorectomy, appendectomy, thyroidectomy, benign skin lesions, stool transplant, two back surgeries. Right arteriovenous (AV) fistula, colonoscopy. SOCIAL HISTORY: She is a former smoker. Has not smoked for 10 years. Has not used any alcohol in the last year. REVIEW OF SYSTEMS: Notable for no headache, no visual changes. She has chronic runny nose. No sore throat. No neck pain. She has cough with sputum production, although she is unable to express the sputum. She has left upper quadrant abdominal pain without rebound or guarding. No change in her bowel habits. Does not make any urine. MEDICATIONS AT HOME: - Tylenol as needed - albuterol as needed - calcium vitamin D supplement - guaifenesin - loperamide as needed - prednisone 5 mg by mouth daily - Compazine as needed for nausea - simethicone as needed - vitamin D 50,000 units monthly - Refresh eye drops - Steph-Yovani daily - [place] and Percocet as needed for pain - artificial tears - Zyrtec 10 mg by mouth at bedtime - vitamin B12 supplement - Flexeril 5 mg by mouth three times a day as needed anxiety - fish oil 1000 mg by mouth daily - Flonase two sprays nasally at bedtime - Flovent HFA 110 mcg inhaled twice a day - Mucinex 600 mg by mouth twice a day - Bacid one tablet by mouth daily - Synthroid 125 mcg by mouth daily - losartan 50 mg by mouth every evening - metoprolol tartrate four times a week and at bedtime - Protonix 40 mg by mouth twice a day - pravastatin 40 mg by mouth at bedtime - Renvela 800 mg by mouth twice a day - Gabitril 4 mg by mouth daily PHYSICAL EXAMINATION: VITAL SIGNS: Temperature was 104 upon arrival, was 100.4 at 2 p.m. pulse 90, respiratory rate 18, blood pressure 123/57, 97% on two liters nasal cannula. GENERAL: She is awake, appropriately interactive. Pleasantly conversant. She remembers me from previous encounters. HEENT: Head is normocephalic. Sinuses are nontender. Pupils equal, round, and reactive. Anicteric. Noninjected. Mucous membranes are moist. She is wearing corrective lenses. NECK: Supple. No cervical or supraclavicular adenopathy. LUNGS: Breathing is symmetrically diminished. I to E ratio is 1:4. She is warm to the touch. HEART: Distant sounding, normal S1, S2. Is not tachycardic. Radial pulses 2+. Capillary refill is less than two seconds. Heart is in a regular rate and rhythm. There is a systolic murmur note in the right sternal border, and is also quite noticeable in her carotids, which may represent cardiac source, or the sound of her shunt. ABDOMEN: Soft, with left upper quadrant tenderness. There is no rash noted. No rebound, no guarding. Hypoactive bowel sounds. EXTREMITIES: No significant lower extremity edema. She is moving all four extremities. NEUROLOGIC: Cranial nerves II through XII are grossly intact. She has normal mood and affect. LABORATORY DATA: Labs available for me to review include white count 8.5, hemoglobin 8.2, and platelets of 183. BUN 13, creatinine 4, glucose 127. MICROBIOLOGY: Blood cultures pending. IMAGING: Abdominal and pelvic CT shows an area of sclerosis in the iliac crest region on the right. Blastic metastasis versus renal osteodystrophy versus insufficiency fracture. Consider bone scan. CT scan of the chest was personally reviewed with Dr. Alcala, which shows a 6.6 cm mass in the left upper lobe with some interstitial infiltrate elsewhere in the left upper lobe. Smaller mass in the right apex. Multiple right lower lobe pulmonary nodules. These are findings that are new when compared to CT scan from approximately a year ago. There is no EKG for me to review. ASSESSMENT: This is a 66-year-old female presentation with fever, found to have a lung mass which most likely represents an advanced, prolonged pneumonia. Will require a two-midnight hospital stay for further workup and treatment. PLAN: 1. Infectious disease: I am suspicious that the patient has a necrotic pneumonia and is started on broad-spectrum antibiotics. Will obtain sputum if able. Will attempt to obtain sputum for cytology as well if that is possible. 2. The patient has a history of asthma/chronic obstructive pulmonary disease (COPD)/Goodpasture's on chronic steroids. May benefit from increased dose steroids in this setting as chronic steroids give risk of adrenal insufficiency. She was previously on cyclosporin but has been off that for several years. May benefit from pulmonary consult as clinically indicated. 3. The patient has end-stage renal disease on hemodialysis. She was hypotensive during dialysis today. We will monitor her on telemetry. She will also be seen in consultation by Dr. Solano for assistance with dialysis as needed. 4. Cardiovascular: The patient has history of supraventricular tachycardia (SVT) and congestive heart failure with grade 1 diastolic dysfunction. She appeared to be compensated. 5. She also has a history of hypertension. Will continue her home medications with hold parameters. 6. The patient has hyperlipidemia. Continue her statin drug, as well as her fish oil. 7. The patient has secondary hypothyroidism. Continue on Synthroid. 8. The patient has a history of Clostridium (C.) difficile. Will be on antibiotics. I did discussed with the patient the risk of recurrent C. Difficile. I have let her continue on her Bacid which will be given twice daily. 9. Deep venous thrombosis (DVT) prophylaxis has been ordered. 10. The patient has been signed out to the family medicine team. SOL
[2016-12-22] MEDS: predniSONE 20 MG TAB PO SCH (21:47)
[2016-12-22] MEDS: LACTOBACILLUS ACIDOPHILUS CAP (BACID) PO SCH (21:48)
[2016-12-22] MEDS: guaiFENesin ER 600 MG TAB PO SCH (21:48)
[2016-12-22] MEDS: CYANOCOBALAMIN 500 MCG TAB PO SCH (21:48)
[2016-12-22] MEDS: PRAVASTATIN 20 MG TAB PO SCH (21:49)
[2016-12-22] MEDS: METOPROLOL TART 50 MG TAB PO SCH (21:49)
[2016-12-22] MEDS: PANTOPRAZOLE 40MG TAB (PROTONIX) PO SCH (21:49)
[2016-12-22] MEDS: CETIRIZINE (ZyrTEC) 10 MG TAB PO SCH (21:50)
[2016-12-22] MEDS: LOSARTAN 50 MG TAB PO SCH (21:50)
[2016-12-22] MEDS: HEPARIN SOD (PORCINE) 5000 UNITS/ML VIAL SC SCH (21:51)
[2016-12-22] MEDS: SLF 3 ML SYR IV SCH (21:51)
[2016-12-22] MEDS: FLUTICASONE PROP 0.05% NASAL SPRAY 16 GM (FLONASE) SCH (21:51)
[2016-12-22 23:59] VITALS: BP 127/62
[2016-12-22] MEDS: PIPERACILLIN/TAZOBACTAM SOD 2.25 GM in D5W MINI-BAG PLUS 50 ML IV SCH (23:59)
[2016-12-23] VITALS (14 sets, daily range): BP systolic 117–151; BP diastolic 58–72; PULSE 70
[2016-12-23] MEDS: SLF 3 ML SYR IV SCH ×3 (05:12→20:51)
[2016-12-23] MEDS: LEVOTHYROXINE 0.125 MG TAB (125 MCG) PO SCH (05:12)
[2016-12-23] MEDS: PIPERACILLIN/TAZOBACTAM SOD 2.25 GM in D5W MINI-BAG PLUS 50 ML IV SCH ×3 (05:12→20:52)
[2016-12-23 05:45] LABS: BASO % 0.1 % (0.0-1.0); EOS # 0.1 K/mm3 (0.0-0.50); EOS % 0.8 % (0.0-3.0); LARGE UNSTAINED CELL # 0.1 K/mm3 (0.0-0.4); LARGE UNSTAINED CELL % 0.9 % (0.0-4.0); LYMPH # 0.7 K/mm3 (1.5-4.5); LYMPH % 7.1 % (24.0-44.0); MEAN CORPUSCULAR HEMOGLOBIN 28.5 pg (27.0-33.0); MEAN CORPUSCULAR HGB CONC 30.3 g/dl (32.0-36.5); MEAN CORPUSCULAR VOLUME 93.9 fl (80.0-96.0); MONO # 0.2 K/mm3 (0.0-0.8); MONO % 1.8 % (0.0-5.0); NEUTROPHILS # 8.2 K/mm3 (1.8-7.7); NEUTROPHILS % 89.2 % (36.0-66.0); PLATELET COUNT, AUTOMATED 176 k/mm3 (150-450); RED CELL DISTRIBUTION WIDTH 17.3 % (11.5-14.5); WHITE BLOOD COUNT 9.2 K/mm3 (4.0-10.0)
[2016-12-23 06:12] LABS: CALCIUM LEVEL 7.9 MG/DL (8.8-10.2); CREATININE FOR GFR 5.88 MG/DL (0.55-1.02); GLOMERULAR FILTRATION RATE 7.6 (>45); POTASSIUM SERUM 4.7 MEQ/L (3.5-5.1)
[2016-12-23] MEDS: FLUTICASONE HFA 110 MCG 12 GM INHALER (FLOVENT) INH SCH ×2 (08:35→22:09)
[2016-12-23] MEDS: ALBUTEROL SULFATE 2.5 MG/0.5 ML INH NEB SOLN INH SCH ×4 (08:35→19:00)
[2016-12-23] MEDS: HEPARIN SOD (PORCINE) 5000 UNITS/ML VIAL SC SCH ×2 (08:41→20:50)
[2016-12-23] MEDS: (RENVELA) SEVELAMER **CARBONate** 800 MG TAB PO SCH ×2 (08:41→18:17)
[2016-12-23] MEDS: OMEGA-3 1050MG CAPSULE PO SCH (08:42)
[2016-12-23] MEDS: METOPROLOL TART 50 MG TAB PO SCH ×2 (08:42→20:53)
[2016-12-23] MEDS: LACTOBACILLUS ACIDOPHILUS CAP (BACID) PO SCH ×2 (08:42→20:49)
[2016-12-23] MEDS: predniSONE 20 MG TAB PO SCH (08:42)
[2016-12-23] MEDS: PANTOPRAZOLE 40MG TAB (PROTONIX) PO SCH ×2 (08:42→20:49)
[2016-12-23] MEDS: guaiFENesin ER 600 MG TAB PO SCH ×2 (08:43→20:49)
--- NOTE | 2016-12-23 08:48 | IPNPDOC ---
Subjective Date Seen The patient was seen on 12/23/16. Subjective Chief Complaint/HPI The patient is a 66-year-old female admitted with a reason for visit of Pneumonia. Events since last encounter Seen this morning in PCU. Feeling better. Nausea resolved. Fever curve improving -- last fever 20:19 (102.3). Cough remains unproductive, so sputum cx have not yet been obatained. Constitutional: Reports: Malaise, Denies: Chills, Fatigue, Fever, Night Sweats Pulmonary: Reports: Cough, Denies: Dyspnea, Pleuritic Chest Pain Cardiovascular: Denies: Chest Pain, Orthopnea, Palpitations Gastrointestinal: Denies: Abdominal Pain, Constipation, Diarrhea, Nausea, Vomiting Objective Physical Examination General Exam: Positive: Alert, No Acute Distress Eye Exam: Positive: Conjunctiva & lids normal, EOMI, PERRLA, Negative: Sclera icteric ENT Exam: Positive: Atraumatic, Mucous membr. moist/pink, Pharynx Normal Neck Exam: Positive: Supple, Negative: JVD Chest Exam: Positive: Diminished, Rhonchi (intermittent), Negative: Wheezing Heart Exam: Positive: Normal S1, Normal S2, Other (distant heart sounds), Rate Normal, Regular Rhythm, Negative: Murmurs, Rubs Skin Exam: Positive: Nl turgor and temperature, Negative: Breakdown, Rash Assessment /Plan Problems (1) Pneumonia Status: Acute Problem Text: D2 abx- vanco/zosyn for possible necrotizing pneumonia based on ct findings. bcx pending. fever curve improving. continues to require O2. -acappella (2) Lung mass Status: Acute Problem Text: 12/22/16 CT CAP 66 mm necrotic mass-favor tumor vs infectious +/- recurrent Goodpasture's, B iliac crest sclerotic lesions 12/23/16 Nephro loaded SM She has significant risk for malignancy considering smoking hx, so will likely need bx by IR on Sunday. (3) COPD (chronic obstructive pulmonary disease) Status: Acute Problem Text: Baseline steroids have been increased 2/2 hypoxia and underlying pneumonia. -continue nebs scheduled/prn (4) Chronic anemia Status: Chronic Problem Text: Related to CKD. Her hgb today is 7.7, which is a drop from yesterday. May be related to necrotic pneumonia. -transfusion consent obtained. Transfuse 2U 12/23 (5) Goodpasture syndrome Status: Chronic Problem Text: Off cyclophosphamide, on steroids which have been increased for hypoxia. (6) Hypothyroid Status: Acute (7) End stage renal disease on dialysis Status: Chronic Problem Text: 11/23 goodpasture's. Dialysis MWF, followed by nephrology. -off cyclophosphamide -prednisone increased to 40bid (8) Diastolic dysfunction Status: Chronic Problem Text: Compensated on exam (9) Hyperlipidemia Status: Chronic Problem Text: On statin, fish oil (10) Hypertension Status: Chronic Problem Text: Controlled on home regimen- losartan/metoprolol Plan/VTE VTE Prophylaxis Ordered?: Yes (heparin) VS, I&O, 24H, Fishbone Vital Signs/I&O Vital Signs Date Time Temp Pulse Resp B/P Pulse Ox O2 Delivery O2 Flow Rate FiO2 12/23/16 07:48 96.3 78 20 124/58 98 Room Air 12/23/16 07:45 2.0 I&O- Last 24 Hours up to 6 AM 12/23/16 06:00 Intake Total 1695 ml Output Total 0 ml Balance 1695 ml Laboratory Data 24H LABS Laboratory Tests 2 12/22/16 13:02: Aspartate Amino Transf (AST/SGOT) 9L, Alanine Aminotransferase (ALT/SGPT) 7L, Alkaline Phosphatase 70, Total Bilirubin 0.6, Direct Bilirubin 0.1, Albumin 2.8L , Albumin/Globulin Ratio 0.62L, Amylase Level 59, Anion Gap 10, White Blood Count 8.5, Red Blood Count 2.84L, Hemoglobin 8.2L, Hematocrit 26.1L, Mean Corpuscular Volume 91.9, Mean Corpuscular Hemoglobin 28.8, Mean Corpuscular Hemoglobin Concent 31.3L, Red Cell Distribution Width 17.1H, Platelet Count 183 , Neutrophils (%) (Auto) 81.6H, Lymphocytes (%) (Auto) 7.8L, Monocytes (%) (Auto ) 5.8H, Eosinophils (%) (Auto) 3.2H, Basophils (%) (Auto) 0.4, Neutrophils # ( Auto) 7.0, Lymphocytes # (Auto) 0.8L, Monocytes # (Auto) 0.5, Eosinophils # ( Auto) 0.3, Basophils # (Auto) 0.0, Calcium Level 9.2, Glomerular Filtration Rate 11.9L, Lactic Acid (Sepsis) 0.9, Large Unclassified Cells # 0.1, Large Unclassified Cells % 1.2, Lipase 206, Total Protein 7.3 12/23/16 05:18: Anion Gap 9, White Blood Count 9.2, Red Blood Count 2.69L, Hemoglobin 7.7L, Hematocrit 25.3L, Mean Corpuscular Volume 93.9, Mean Corpuscular Hemoglobin 28.5 , Mean Corpuscular Hemoglobin Concent 30.3L, Red Cell Distribution Width 17.3H, Platelet Count 176, Neutrophils (%) (Auto) 89.2H, Lymphocytes (%) (Auto) 7.1L, Monocytes (%) (Auto) 1.8, Eosinophils (%) (Auto) 0.8, Basophils (%) (Auto) 0.1, Neutrophils # (Auto) 8.2H, Lymphocytes # (Auto) 0.7L, Monocytes # (Auto) 0.2, Eosinophils # (Auto) 0.1, Basophils # (Auto) 0.0, Calcium Level 7.9L, Glomerular Filtration Rate 7.6L, Large Unclassified Cells # 0.1, Large Unclassified Cells % 0.9, Blood Urea Nitrogen 23#H, Creatinine 5.88H, Sodium Level 136, Potassium Level 4.7#, Chloride Level 99, Carbon Dioxide Level 28 CBC/BMP Laboratory Tests 12/22/16 13:02 Red Blood Count 2.84 L, Mean Corpuscular Volume 91.9, Mean Corpuscular Hemoglobin 28.8, Mean Corpuscular Hemoglobin Concent 31.3 L, Red Cell Distribution Width 17.1 H, Neutrophils (%) (Auto) 81.6 H, Lymphocytes (%) (Auto ) 7.8 L, Monocytes (%) (Auto) 5.8 H, Eosinophils (%) (Auto) 3.2 H, Basophils (% ) (Auto) 0.4, Neutrophils # (Auto) 7.0, Lymphocytes # (Auto) 0.8 L, Monocytes # (Auto) 0.5, Eosinophils # (Auto) 0.3, Basophils # (Auto) 0.0 12/23/16 05:18 Red Blood Count 2.69 L, Mean Corpuscular Volume 93.9, Mean Corpuscular Hemoglobin 28.5, Mean Corpuscular Hemoglobin Concent 30.3 L, Red Cell Distribution Width 17.3 H, Neutrophils (%) (Auto) 89.2 H, Lymphocytes (%) (Auto ) 7.1 L, Monocytes (%) (Auto) 1.8, Eosinophils (%) (Auto) 0.8, Basophils (%) ( Auto) 0.1, Neutrophils # (Auto) 8.2 H, Lymphocytes # (Auto) 0.7 L, Monocytes # ( Auto) 0.2, Eosinophils # (Auto) 0.1, Basophils # (Auto) 0.0, Calcium Level 7.9 L Microbiology Microbiology 12/22/16 Blood Culture, Received Pending 12/22/16 Blood Culture, Received Pending AIDEN HARRIS DO Dec 23, 2016 08:48 Wil Lopez M.D. Dec 23, 2016 13:20
[2016-12-23] MEDS ORDERED: methylPREDNISolone INJ 125 MG/2 ML VIAL (J2930) IV SCH (11:15)
[2016-12-23] MEDS: TIAGABINE 4 MG PO SCH (12:18)
[2016-12-23] MEDS: methylPREDNISolone 500 MG, VIAL MATE ADAPTER 1 EACH in D5W 250 ML IV SCH (12:19)
[2016-12-23 13:45] LABS: INR 1.08
[2016-12-23 14:01] LABS: CONTROL LINE HPYORI INT CTR LINE PRESENT
[2016-12-23] MEDS: DICYCLOMINE 10 MG CAP PO SCH ×3 (15:44→20:49)
[2016-12-23] MEDS: TUBERCULIN PPD 5 UNITS/0.1 ML ID ONE ×2 (15:44→15:52)
[2016-12-23] MEDS: CETIRIZINE (ZyrTEC) 10 MG TAB PO SCH (20:49)
[2016-12-23] MEDS: CYANOCOBALAMIN 500 MCG TAB PO SCH (20:49)
[2016-12-23] MEDS: FLUTICASONE PROP 0.05% NASAL SPRAY 16 GM (FLONASE) SCH (20:50)
[2016-12-23] MEDS: PRAVASTATIN 20 MG TAB PO SCH (20:50)
[2016-12-23] MEDS: LOSARTAN 50 MG TAB PO SCH (20:53)
[2016-12-24] VITALS (7 sets, daily range): BP systolic 118–158; BP diastolic 59–81; PULSE 58–76
[2016-12-24] MEDS: PIPERACILLIN/TAZOBACTAM SOD 2.25 GM in D5W MINI-BAG PLUS 50 ML IV SCH ×3 (05:18→22:28)
[2016-12-24] MEDS: LEVOTHYROXINE 0.125 MG TAB (125 MCG) PO SCH (05:18)
[2016-12-24] MEDS: SLF 3 ML SYR IV SCH ×3 (05:19→22:32)
[2016-12-24 05:34] LABS: BASO % 0.1 % (0.0-1.0); EOS % 0.2 % (0.0-3.0); LARGE UNSTAINED CELL # 0.1 K/mm3 (0.0-0.4); LARGE UNSTAINED CELL % 0.9 % (0.0-4.0); LYMPH # 0.8 K/mm3 (1.5-4.5); LYMPH % 4.9 % (24.0-44.0); MEAN CORPUSCULAR HEMOGLOBIN 28.9 pg (27.0-33.0); MEAN CORPUSCULAR HGB CONC 31.6 g/dl (32.0-36.5); MEAN CORPUSCULAR VOLUME 91.5 fl (80.0-96.0); MONO # 0.5 K/mm3 (0.0-0.8); MONO % 3.9 % (0.0-5.0); NEUTROPHILS # 11.7 K/mm3 (1.8-7.7); PLATELET COUNT, AUTOMATED 212 k/mm3 (150-450); RED CELL DISTRIBUTION WIDTH 17.6 % (11.5-14.5)
[2016-12-24 05:35] LABS: CALCIUM LEVEL 8.3 MG/DL (8.8-10.2); CREATININE FOR GFR 7.63 MG/DL (0.55-1.02); GLOMERULAR FILTRATION RATE 5.7 (>45); POTASSIUM SERUM 4.7 MEQ/L (3.5-5.1)
--- NOTE | 2016-12-24 07:07 | CR ---
DATE OF CONSULTATION: 12/23/2016 REQUESTING PHYSICIAN: Pablo Cortez MD CONSULTING PHYSICIAN: Donald Solano MD REASON FOR CONSULTATION: Management of end stage renal disease and hemodialysis. CHIEF COMPLAINT: Fever with chills and rigors. 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 The patient was having off and on fever with chills and rigors for about a week. She was also dropping hemoglobin recently. Patient also complained of cough with some hemoptysis and yesterday during hemodialysis the patient was hypotensive and she had a fever of 104 reportedly. After dialysis the patient was sent to the emergency room for further evaluation. Over here in the ER she got a CAT scan done which showed positive masses in the lungs, which were suspicious for pulmonary hemorrhage. Nephrology service was called for further management of end stage renal disease and hemodialysis and possible management of Goodpasture's disease. PAST MEDICAL HISTORY: End stage renal disease with hemodialysis every Sunday, Sunday, and Sunday. Last hemodialysis was yesterday. History of hypertension. History of supraventricular tachycardia (SVT). Allergic rhinitis. Gastroesophageal reflux disease (GERD). Irritable bowel syndrome. Hiatal hernia. 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 Goodpasture's disease. History of pulmonary hemorrhage in the past. Chronically on low dose prednisone. Chronic obstructive pulmonary disease (COPD). PAST SURGICAL HISTORY: Status post hysterectomy and bilateral salpingo-oophorectomy. Status post thyroidectomy. Status post back surgery. Status post fecal transplant. Status post AV fistula placement. ALLERGIES: Patient is allergic: 1. ASPIRIN. 2. BUTALBITAL. 3. Caffeine. CURRENT MEDICATIONS: The patient's current inpatient medications include: - Zosyn 2.25 grams IV every 8 hours - vancomycin 1 gram IV was given and then she was started on 750 mg IV with hemodialysis - Tylenol as needed - albuterol every 2 hours as needed - artificial tears - cetirizine 10 mg at bedtime - vitamin B12 1000 mcg at bedtime - Flexeril 5 mg by mouth three times a day as needed anxiety - Bentyl 20 mg by mouth four times a day - fluticasone nasal spray - heparin subcu - lactobacillus one twice a day - Synthroid 0.125 mg by mouth daily - losartan 50 mg by mouth at night - metoprolol 50 mg by mouth daily - [place]-3 fish oil one daily - Zofran as needed - oxycodone every 6 hours as needed pain - Protonix 40 mg by mouth twice a day - pravastatin 40 mg at bedtime - Renvela 800 mg by mouth twice a day with meals - Gabitril 4 mg by mouth daily FAMILY HISTORY: No significant family history of end stage renal disease requiring hemodialysis. SOCIAL HISTORY: Patient denies any alcohol abuse or drug abuse. She is a former smoker. REVIEW OF SYSTEMS: CONSTITUTIONAL: Patient reports fever with chills. EYES: Patient denies any blurry vision or double vision. ENT: Patient denies any ear discharge, dysphagia or odynophagia. She does report allergic rhinitis. CARDIOVASCULAR: She denies any chest pain or palpitations. RESPIRATORY: Patient reports cough, hemoptysis, shortness of breath. GASTROINTESTINAL (GI): Patient reports a history of irritable bowel syndrome but she denies any diarrhea, constipation, nausea or vomiting. GENITOURINARY (): She denies any dysuria or hematuria. MUSCULOSKELETAL: She denies any muscles aches and pains. COMPANY LABORER: She denies any history of seizures or strokes. PSYCH: She denies any depression or anxiety. SKIN: She denies any rashes or ulcers. HEMATOLOGICAL/ONCOLOGICAL: Patient history of Goodpasture's disease and she reports a history of anemia as well. ENDOCRINE: Patient denies history of diabetes, but she does report a history of hypothyroidism. All other review of systems is negative. PHYSICAL EXAMINATION: GENERAL: Patient is awake, alert and oriented times three, sitting on the bed in no apparent distress. VITAL SIGNS: Temperature is 95.7 degrees Fahrenheit. Blood pressure is 139/63. Pulse is 70. Respiratory rate of 18. Saturating 96% on room air. Intake and output there is no urine output recorded. Weight on the bed scale is 70 kg. HEAD/NECK EXAM: Extraocular muscles intact. Pupils equally round and reactive to light. Mucous membranes are moist. Neck is supple. There is no jugular venous distention (JVD). CARDIOVASCULAR: S1 and S2, regular rate. No murmur, rub or gallop. RESPIRATORY: Chest is clear to auscultation bilaterally. Bilaterally equal air entry. No rales or rhonchi. ABDOMEN: Soft. Positive bowel sounds. Nontender. No ascites. No organomegaly. EXTREMITIES: No clubbing or cyanosis. Pulses are 2+. COMPANY LABORER: No focal neurological deficit. Power is 5/5 in all extremities. PSYCH: Normal mood and affect. SKIN: No rashes or ulcers. Lymph Node: No cervical or axillary lymphadenopathy LABORATORY REVIEW: CBC showed a WBC of 9.2, hemoglobin is 7.7, platelets are 176. INR is 1.08. BMP showed sodium 136, potassium 4.7, chloride 99, bicarb 28 , BUN 23, creatinine is 5.8, calcium is 7.9, C-reactive protein is 28.9, albumin is 2.8. Microbiology: Blood culture is negative so far. IMAGING: CAT scan of the abdomen and pelvis done showed no acute intra- abdominal abnormality. CAT scan of the chest showed a 6.6 cm mass in the left upper lobe with some interstitial infiltrate and a smaller mass in the right apex as well. ASSESSMENT: 66-year-old female with past medical history of end stage renal disease and pulmonary hemorrhage secondary to Goodpasture's disease, admitted this time with fever, chills, rigors and masses on the CAT scan of the chest. Nephrology service following the patient for management of end stage renal disease. PLAN: 1. Fever and lung lesions on the CAT scan of the chest. Given the patient's positive history of Goodpasture's disease and history of hemoptysis in the past, I strongly suspect that the patient is having pulmonary hemorrhage. Her hemoglobin is also down. Although the primary team had increased the steroids of this patient, I am going to start the patient on Solu-Medrol 500 mg IV daily. I have also ordered MED, ANCA panel, anti-GBM antibodies in this patient. If anti-GBM antibodies are positive, we might have to give this patient immunosuppression. It is okay to continue the antibiotics at this time. It looks like the patient might have infection on top of pulmonary hemorrhage and necrosis. 2. End stage renal disease on hemodialysis. The patient was dialyzed yesterday. There is no urgent need of hemodialysis today. Her next hemodialysis session will be on Sunday, December 25, 2016. 3. Anemia in end stage renal disease. The patient's hemoglobin if 7.7 at this time, which is suboptimal. I think it is secondary to pulmonary hemorrhage and end stage renal disease. There is no urgent need for a blood transfusion at this time; however, if the patient's hemoglobin drops further she might need blood transfusion during hemodialysis. The patient would also get a dose of Aranesp with hemodialysis on her next session. 4. History of C. difficile colitis in the past. The patient is currently getting Zosyn. Continue the probiotic at this time. No diarrhea at this time. 5. Hypertension. The patient's blood pressure is acceptable at this time. Continue current dose of losartan 50 mg by mouth daily and metoprolol 50 mg by mouth daily. 6. Hypothyroidism. Continue current dose of levothyroxine 125 mcg by mouth daily. Thank you for involving us in the care of this patient. We shall be happy to follow the patient along with you tomorrow morning. E[place]
[2016-12-24] MEDS: ALBUTEROL SULFATE 2.5 MG/0.5 ML INH NEB SOLN INH SCH ×4 (08:00→20:19)
[2016-12-24] MEDS: HEPARIN SOD (PORCINE) 5000 UNITS/ML VIAL SC SCH ×2 (08:44→22:31)
[2016-12-24] MEDS: (RENVELA) SEVELAMER **CARBONate** 800 MG TAB PO SCH ×2 (08:46→18:00)
[2016-12-24] MEDS: PANTOPRAZOLE 40MG TAB (PROTONIX) PO SCH ×2 (08:46→22:30)
[2016-12-24] MEDS: LACTOBACILLUS ACIDOPHILUS CAP (BACID) PO SCH ×2 (08:46→22:29)
[2016-12-24] MEDS: DICYCLOMINE 10 MG CAP PO SCH ×4 (08:46→22:29)
[2016-12-24] MEDS: METOPROLOL TART 50 MG TAB PO SCH ×2 (08:46→22:30)
[2016-12-24] MEDS: guaiFENesin ER 600 MG TAB PO SCH ×2 (08:46→22:30)
[2016-12-24] MEDS: OMEGA-3 1050MG CAPSULE PO SCH (08:46)
[2016-12-24] MEDS ORDERED: PREVNAR 13 VACCINE SYRINGE (CPT CODE:90670) IM ONE (09:00)
[2016-12-24] MEDS: FLUTICASONE HFA 110 MCG 12 GM INHALER (FLOVENT) INH SCH ×2 (09:07→20:19)
--- NOTE | 2016-12-24 09:19 | IPNPDOC ---
Subjective Date Seen The patient was seen on 12/24/16. Subjective Chief Complaint/HPI The patient is a 66-year-old female admitted with a reason for visit of Pneumonia. Events since last encounter Pt states she feels about the same. Denies CP, SOB, Abd pain. Pulmonary: Denies: Dyspnea Cardiovascular: Denies: Chest Pain Gastrointestinal: Denies: Abdominal Pain, Nausea, Vomiting Objective Physical Examination General Exam: Positive: Alert, No Acute Distress Eye Exam: Positive: Conjunctiva & lids normal, EOMI, PERRLA, Negative: Sclera icteric ENT Exam: Positive: Atraumatic, Mucous membr. moist/pink, Pharynx Normal Neck Exam: Positive: Supple, Negative: JVD Chest Exam: Positive: Diminished, Rhonchi (intermittent), Negative: Wheezing Heart Exam: Positive: Normal S1, Normal S2, Other (distant heart sounds), Rate Normal, Regular Rhythm, Negative: Murmurs, Rubs Skin Exam: Positive: Nl turgor and temperature, Negative: Breakdown, Rash Assessment /Plan Problems (1) Pneumonia Status: Acute Problem Text: 12/24 - Zosyn/Vanco D3 for possible necrotizing pneumonia based on ct findings. Blood cx no growth after 24 hours. Afebrile. Discussed with nephrology. Will consult pulmonary. D2 abx- vanco/zosyn for possible necrotizing pneumonia based on ct findings. bcx pending. fever curve improving. continues to require O2. -acappella 12/23 PPD placed (2) Lung mass Status: Acute Problem Text: D2 Solumedrol 500 IV 12/24 Dr. Morales consulted-plan bronch for AM 12/22/16 CT CAP 66 mm necrotic mass-favor tumor vs infectious +/- recurrent Goodpasture's, B iliac crest sclerotic lesions (CRP 29, ESR 129!) 12/23/16 Nephro started SM She has significant risk for malignancy considering smoking hx/chronic immune suppression (3) COPD (chronic obstructive pulmonary disease) Status: Acute Problem Text: Stable at this point (4) Chronic anemia Status: Chronic Problem Text: partially 2 CKD, but favor also acute blood loss anemia-? bleed into lung mass +/- UGI bleed (dyspepsia ORE CHARGER) on PPI BID 12/24 - S/P 2 units PRBCs 12/23/16. Hgb 9.9 today. 12/23 - Her hgb today is 7.7, which is a drop from yesterday. 12/23 - H pylori Ab 12/23 PT/PTT 14/47 (5) Goodpasture syndrome Status: Chronic Problem Text: Nephrology following. MED, ANCA, Anti-GBM ab ordered. Off cyclophosphamide, on steroids which have been increased for hypoxia. (6) Hypothyroid Status: Chronic Response to Treatment: Stable Problem Text: 09/2016 TSH 0.3 (7) End stage renal disease on dialysis Status: Chronic Problem Text: / goodpasture's. Dialysis MWF, followed by nephrology. -off cyclophosphamide -prednisone increased to 40bid (8) Diastolic dysfunction Status: Chronic Problem Text: Compensated on exam (9) Hyperlipidemia Status: Chronic Problem Text: On statin, fish oil (10) Hypertension Status: Chronic Problem Text: Controlled on home regimen- losartan/metoprolol Plan/VTE VTE Prophylaxis Ordered?: Yes (heparin) VS, I&O, 24H, Fishbone Vital Signs/I&O Vital Signs Date Time Temp Pulse Resp B/P Pulse Ox O2 Delivery O2 Flow Rate FiO2 12/24/16 08:00 96.1 69 18 140/65 98 Nasal Cannula 2.0 I&O- Last 24 Hours up to 6 AM 12/24/16 06:00 Intake Total 1730 ml Output Total 0 ml Balance 1730 ml Laboratory Data 24H LABS Laboratory Tests 2 12/23/16 13:26: Activated Partial Thromboplast Time 46.8H, Prothromb Time International Ratio 1.08, Prothrombin Time 14.1 12/23/16 13:29: C-Reactive Protein, Quantitative 28.90H, Erythrocyte Sedimentation Rate 129H, Helicobacter pylori IgG Antibody NEGATIVE 12/24/16 05:01: Anion Gap 13, White Blood Count 13.0H, Red Blood Count 3.44L, Hemoglobin 9.9#L, Hematocrit 31.5L, Mean Corpuscular Volume 91.5, Mean Corpuscular Hemoglobin 28.9 , Mean Corpuscular Hemoglobin Concent 31.6L, Red Cell Distribution Width 17.6H, Platelet Count 212, Neutrophils (%) (Auto) 90.0H, Lymphocytes (%) (Auto) 4.9L, Monocytes (%) (Auto) 3.9, Eosinophils (%) (Auto) 0.2, Basophils (%) (Auto) 0.1, Neutrophils # (Auto) 11.7H, Lymphocytes # (Auto) 0.8L, Monocytes # (Auto) 0.5, Eosinophils # (Auto) 0.0, Basophils # (Auto) 0.0, Blood Urea Nitrogen 46#H, Creatinine 7.63H, Sodium Level 138, Potassium Level 4.7, Chloride Level 99, Carbon Dioxide Level 26, Calcium Level 8.3L, Glomerular Filtration Rate 5.7L, Large Unclassified Cells # 0.1, Large Unclassified Cells % 0.9 CBC/BMP Laboratory Tests 12/24/16 05:01 Calcium Level 8.3 L, Red Blood Count 3.44 L, Mean Corpuscular Volume 91.5, Mean Corpuscular Hemoglobin 28.9, Mean Corpuscular Hemoglobin Concent 31.6 L, Red Cell Distribution Width 17.6 H, Neutrophils (%) (Auto) 90.0 H, Lymphocytes (%) ( Auto) 4.9 L, Monocytes (%) (Auto) 3.9, Eosinophils (%) (Auto) 0.2, Basophils (% ) (Auto) 0.1, Neutrophils # (Auto) 11.7 H, Lymphocytes # (Auto) 0.8 L, Monocytes # (Auto) 0.5, Eosinophils # (Auto) 0.0, Basophils # (Auto) 0.0 Microbiology Microbiology 12/22/16 Blood Culture - Preliminary, Resulted No growth after 24 hours . All specim... 12/22/16 Blood Culture - Preliminary, Resulted No growth after 24 hours . All specim... Mike Garza Dec 24, 2016 09:19 Wil Lopez M.D. Dec 24, 2016 13:27
[2016-12-24] MEDS: methylPREDNISolone 500 MG, VIAL MATE ADAPTER 1 EACH in D5W 250 ML IV SCH (11:46)
[2016-12-24] MEDS: TIAGABINE 4 MG PO SCH (11:47)
--- NOTE | 2016-12-24 13:35 | CR ---
DATE OF CONSULTATION: 12/24/2016 REASON FOR CONSULTATION: Abnormal chest CT. REQUESTING PROVIDER: Dr. Wil Lopez HISTORY OF PRESENT ILLNESS: Ms. Jim is a 66-year-old female who has a history of Goodpasture's with diffuse alveolar hemorrhage dating back just over 2 years ago. She was hospitalized in [place] for approximately a month for plasma exchange. Was then on cyclophosphamide, she recalls, for approximately 3 months and then has been on low-dose prednisone since that time. Over the past year, she has with 5 mg of prednisone. Has had no recurrence of hemoptysis. She presents to the emergency room after having weeks of left upper quadrant, lower chest wall discomfort that is associated with nausea. She had some workup for pancreatitis due to the fact that her pain radiated to the back. She has been having alternating fever and chills at night with night sweats. She states this is very similar to the symptoms that she had prior to her alveolar hemorrhage episode. She, however, has not had any hemoptysis. She has not had a significant cough. She recalls 1 day of a minimal cough but no productive sputum. Today, she has no coughing and actually feels better than when she first came in a few days ago. She has been on vancomycin, Zosyn; and today, her steroids were increased to high-dose Solu-Medrol at 500 mg a day due to concerns of recurrence of Goodpasture's. Her main complaint is left-sided lower rib pain. She states even this has improved since she has been in the hospital. She has had no symptoms of uveitis, no rashes. She has chronic kidney disease and is on hemodialysis. She states she has obstructive sleep apnea but has been noncompliant due to claustrophobia. She states she has tried the mask and is unable to tolerate it at night. She is followed closely by Dr. Recio. She did have a chest CT a year ago, which did not show the abnormalities that are present today. PAST MEDICAL HISTORY: 1. 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 2. Osteonecrosis of the jaw. 3. Chronic kidney disease, on hemodialysis. 4. Obstructive sleep apnea. 5. Hypercholesterolemia. 6. Hypothyroidism. 7. Hypertension. 8. Gastroesophageal reflux. 9. "Intercostal neuritis." 10. History of supraventricular tachycardia (SVT), followed by Dr. Alves. 11. Vitamin D deficiency. 12. Iron deficiency. 13. Allergic rhinitis. 14. Irritable bowel syndrome. 15. History of hiatal hernia. 16. History of diverticulitis. 17. Secondary hyperparathyroidism. 18. 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 19. Reportedly, grade 1 diastolic dysfunction. 20. History of chronic obstructive pulmonary disease. However, I do not have pulmonary function test to review to confirm this diagnosis. 21. Total abdominal hysterectomy with bilateral salpingo-oophorectomy. 22. Appendectomy. 23. Thyroidectomy. 24. Benign skin lesions. 25. Right AV fistula. CURRENT MEDICATIONS: Include: - acetaminophen - Zofran - heparin 5000 units subcutaneous every 12 - albuterol nebulizers - Roberts - Zyrtec - vitamin B12 - Flexeril - fish oil capsules - Flonase - Flovent - Mucinex - Bacid - Synthroid - Cozaar - Lopressor - Percocet - Protonix - Pravachol - Gabitril - vancomycin - Zosyn - methylprednisolone 500 mg daily - Renvela ALLERGIES: ASPIRIN, BUTALBITAL, CAFFEINE. SOCIAL HISTORY: The patient has a [id number] history of smoking, quit 16 years ago. Alcohol use. No illicit drug use. She identifies her brother as her healthcare proxy. Her brother and nephew are visiting her during my conversation with her. FAMILY HISTORY: No family history of lung disease. On review of systems: General: Positive for fever, chills, and night sweats, as mentioned above. No significant change in weight. HEENT: She has no headache, visual changes. No epistaxis or rhinorrhea. No pharyngitis or neck pain. Cardiac: No anginal symptoms. No symptoms of palpitation. No orthopnea, paroxysmal nocturnal dyspnea (PND),or lower extremity edema. Pulmonary: As per history of present illness (HPI). No history of tuberculosis (TB) or tuberculosis contacts. She denies a pleuritic component to her chest discomfort. Gastrointestinal (GI): She has significant nausea and decreased appetite. Currently, no vomiting, no diarrhea, change in bowel habits, or blood in stool. Genitourinary (): No burning or pain with urination. She is on chronic hemodialysis. No history of nephrolithiasis. Hematology: No easy bruising, bleeding. She describes having an extra dose of a blood thinner but does not recall any bleeding events after this. Neurologic: No unilateral weakness, history of seizure, tremor, or head trauma. Psychiatric: No depression, anxiety, or mood swings. No suicidal ideation. Allergy immunology: She is chronically immunosuppression. She does have symptoms of allergic rhinitis. No known fungal infections but does have chronic history of C. difficile. Sleep: Has known obstructive sleep apnea and is excessively tired during the day. Has been known to snore and has witnessed apneas. Oncology: No prior history of malignancy. No lymphadenopathy. PHYSICAL EXAMINATION: Temperature is 96.1, pulse is 69, respiratory rate is 18, blood pressure is 140/65, oxygen saturations 98% on 2 liters. In general, she is awake, alert and oriented. Affect and mood are appropriate. Able to have a full conversation without any dyspnea. HEENT: Sclerae clear and without icterus. Pupils are equal and reactive to light. Mucous membranes are moist. Tongue is midline without lesions. Neck: Supple. No tracheal deviation or mass. No thyromegaly. Lymph: No cervical, supraclavicular, or axillary adenopathy. Pulmonary: Fairly clear to auscultation. No rales, rhonchi, or wheezes. No dullness to percussion. Audible gallop. There is a grade 2/6 systolic ejection murmur heard best at the second intercostal space. Abdomen: Soft, nontender, nondistended. No hepatosplenomegaly. No masses or hernia. Extremities: No lower extremity edema. No clubbing or cyanosis. She does have an AV fistula in the right arm. Obviously, recently accessed. Neurologic: No unilateral weakness. No asterixis, tremor. LABORATORY EVALUATION: Shows elevated white count of 13.0 but initially normal white count of 8.5 prior to steroid therapy, hemoglobin is 9.9. She is anemic. She was anemic on admission with a hemoglobin at 8.2. Platelet count of 212. ESR is significantly elevated at 129. CRP of 28.29. Sodium is 138, potassium 4.7, chloride 94, bicarbonate 26, BUN of 46, creatinine of 7.6, with a glucose of 125, lactic acid of 0.9, calcium of 8.3. INR of 1.08. Chest CT was reviewed in detail, and I compared this to prior chest CTs. I personally reviewed the chest CT from 12/22/2016. There is a large left upper lobe mass, which I measured approximately 5.8 x 4.7 cm. There is a right upper lobe peripheral lesion measuring approximately 2.5 cm. There are multiple right lower lobe small nodules, one round lesion measuring 1.2 cm. So, there is no significant infiltrate. Minimal bronchiectasis changes in the left upper lobe. There is no significant mediastinal, subcarinal, or hilar adenopathy. There is some minimal pleural parenchymal abnormalities, especially in the right lower lobe. I compared her chest CT to the chest CT from 12/23/2015. There is some minimal parenchymal scarring, especially on the right. There is some, what appears to be, pleural inflammation in the right upper lobe, which is near the area of the right upper lobe lesion that has now developed. There was no significant mass on the CT scan from 12/23/2015. There has been a significant change since this CT scan. IMPRESSION: 1. Lung mass with multiple lung nodules. Differential includes malignancy due to chronic immunosuppression and history of smoking, recurrence of Goodpasture's; however, this appears to be more solid then infiltrative, and she has not had hemoptysis. However, she does have an elevated ESR, CRP. I agree with initiating high-dose Solu-Medrol until further workup is completed. This could also be an atypical infection, fungal infection. The size of the lesion, however, makes me most concerned of underlying malignancy. I agree with continuing IV antibiotics, as she had clinical improvement. However, I would be cautious, given her history of prior C. difficile. I recommend concurrent treatment with Flagyl. She is already on Bacid to help prevent C. difficile. I discussed the risks and benefits of CT-guided biopsy verses bronchoscopy with the patient. She wishes to proceed with bronchoscopy. I explained the risks of bleeding, pneumothorax, respiratory compromise from anesthesia, along with cough , sore throat, and fever. She expresses understanding and wishes to proceed. Consent was signed in her room today. All her questions were answered. My intention is to do bronchoscopy of both airways and then biopsy any abnormal lesions seen in the airways and then focus on the left upper lobe lesion for further biopsies. This will be performed under fluoroscopy. Due to the risk of potential risk of hemoptysis, will be performed under general anesthesia with an endotracheal tube. The patient states she does have a history of nausea with anesthesia. I will bring this to be attention of the anesthesiologist who is seeing her preprocedure. Will continue to closely follow. Thank you for this consultation. SOL
[2016-12-24] MEDS: CYANOCOBALAMIN 500 MCG TAB PO SCH (22:29)
[2016-12-24] MEDS: CETIRIZINE (ZyrTEC) 10 MG TAB PO SCH (22:30)
[2016-12-24] MEDS: PRAVASTATIN 20 MG TAB PO SCH (22:30)
[2016-12-24] MEDS: LOSARTAN 50 MG TAB PO SCH (22:31)
[2016-12-24] MEDS: FLUTICASONE PROP 0.05% NASAL SPRAY 16 GM (FLONASE) SCH (22:34)
[2016-12-25] VITALS (9 sets, daily range): BP systolic 118–147; BP diastolic 52–70
[2016-12-25] MEDS: LEVOTHYROXINE 0.125 MG TAB (125 MCG) PO SCH (05:47)
[2016-12-25 05:48] LABS: BASO % 0.1 % (0.0-1.0); EOS % 0.4 % (0.0-3.0); LARGE UNSTAINED CELL # 0.1 K/mm3 (0.0-0.4); LARGE UNSTAINED CELL % 0.5 % (0.0-4.0); LYMPH # 0.6 K/mm3 (1.5-4.5); LYMPH % 4.7 % (24.0-44.0); MEAN CORPUSCULAR HEMOGLOBIN 28.9 pg (27.0-33.0); MEAN CORPUSCULAR HGB CONC 31.7 g/dl (32.0-36.5); MEAN CORPUSCULAR VOLUME 91.2 fl (80.0-96.0); MONO # 0.4 K/mm3 (0.0-0.8); NEUTROPHILS # 10.7 K/mm3 (1.8-7.7); NEUTROPHILS % 91.3 % (36.0-66.0); PLATELET COUNT, AUTOMATED 241 k/mm3 (150-450); RED CELL DISTRIBUTION WIDTH 17.3 % (11.5-14.5); WHITE BLOOD COUNT 11.7 K/mm3 (4.0-10.0)
[2016-12-25] MEDS: PIPERACILLIN/TAZOBACTAM SOD 2.25 GM in D5W MINI-BAG PLUS 50 ML IV SCH ×3 (05:48→21:56)
[2016-12-25] MEDS: SLF 3 ML SYR IV SCH ×3 (06:00→21:56)
[2016-12-25] MEDS: guaiFENesin ER 600 MG TAB PO SCH ×2 (06:00→21:54)
[2016-12-25 06:01] LABS: ANION GAP 17 MEQ/L (8-16); BLOOD UREA NITROGEN 65 MG/DL (7-18); CALCIUM LEVEL 7.8 MG/DL (8.8-10.2); CARBON DIOXIDE LEVEL 23 MEQ/L (21-32); CHLORIDE LEVEL 99 MEQ/L (98-107); CREATININE FOR GFR 9.44 MG/DL (0.55-1.02); GLOMERULAR FILTRATION RATE 4.4 (>45); GLUCOSE, FASTING 148 MG/DL (80-110); PERCENT SATURATION 96.1 % (13.2-37.4); POTASSIUM SERUM 4.9 MEQ/L (3.5-5.1); SODIUM LEVEL 139 MEQ/L (136-145); TOTAL IRON BINDING CAPACITY 127 UG/DL (250-450)
[2016-12-25] MEDS: DICYCLOMINE 10 MG CAP PO SCH ×4 (06:01→21:54)
[2016-12-25] MEDS: PANTOPRAZOLE 40MG TAB (PROTONIX) PO SCH ×2 (06:01→21:54)
[2016-12-25] MEDS: OMEGA-3 1050MG CAPSULE PO SCH (06:01)
[2016-12-25] MEDS: LACTOBACILLUS ACIDOPHILUS CAP (BACID) PO SCH ×2 (06:01→21:54)
[2016-12-25] MEDS: ALBUTEROL SULFATE 2.5 MG/0.5 ML INH NEB SOLN INH SCH ×4 (07:09→19:52)
[2016-12-25] MEDS: FLUTICASONE HFA 110 MCG 12 GM INHALER (FLOVENT) INH SCH ×2 (07:09→19:52)
[2016-12-25] MEDS: (RENVELA) SEVELAMER **CARBONate** 800 MG TAB PO SCH ×2 (07:45→17:18)
[2016-12-25] MEDS ORDERED: EMLA CREAM 5GM (LIDOCAINE/PRILOCAINE) TOP SCH (08:00)
[2016-12-25] MEDS ORDERED: DARBEPOETIN 100 MCG/0.5 ML *DIALYSIS* SYRINGE (J0882) IV SCH (08:00)
--- NOTE | 2016-12-25 09:51 | IPNPDOC ---
Subjective Date Seen The patient was seen on 12/25/16. Subjective Chief Complaint/HPI Pt is seen in dialysis. She is doing well. She is overall feeling much better. The abd pain she has had has resolved. General: Denies: Fatigue Constitutional: Denies: Chills, Fever ENT: Denies: Head Aches Pulmonary: Reports: Cough, Denies: Dyspnea Cardiovascular: Denies: Chest Pain, Palpitations Gastrointestinal: Denies: Abdominal Pain, Diarrhea, Nausea, Vomiting Genitourinary: Denies: Dysuria Neurological: Reports: Weakness Psych: Reports: Mood Normal Objective Physical Examination General Exam: Positive: Alert, No Acute Distress Eye Exam: Positive: PERRLA, Negative: Sclera icteric ENT Exam: Positive: Atraumatic, Mucous membr. moist/pink, Pharynx Normal Neck Exam: Positive: Supple, Negative: JVD Chest Exam: Positive: Clear to auscultation, Diminished, Negative: Wheezing Heart Exam: Positive: Normal S1, Normal S2, Other (distant heart sounds), Rate Normal, Regular Rhythm, Negative: Murmurs, Rubs Abdomen Exam: Positive: Normal bowel sounds, Soft, Negative: Tenderness Extremity Exam: Negative: Edema Skin Exam: Positive: Nl turgor and temperature, Negative: Breakdown, Rash Assessment /Plan Problems (1) Pneumonia Status: Acute Problem Text: 12/25 Zosyn/Vanco D4 - pulm following 12/24 - Zosyn/Vanco D3 for possible necrotizing pneumonia based on ct findings. Blood cx no growth after 24 hours. Afebrile. Discussed with nephrology. Will consult pulmonary. D2 abx- vanco/zosyn for possible necrotizing pneumonia based on ct findings. bcx pending. fever curve improving. continues to require O2. -acappella 12/23 PPD placed (2) Lung mass Status: Acute Problem Text: 12/25 - Pulm plans Bronch today. suspiscious for malignancy. 12/24 Dr. Morales consulted-plan bronch for AM 12/22/16 CT CAP 66 mm necrotic mass-favor tumor vs infectious +/- recurrent Goodpasture's, B iliac crest sclerotic lesions (CRP 29, ESR 129!) 12/23/16 Nephro started SM She has significant risk for malignancy considering smoking hx/chronic immune suppression (3) COPD (chronic obstructive pulmonary disease) Status: Acute Response to Treatment: Stable Problem Text: Stable at this point (4) Chronic anemia Status: Chronic Problem Text: Partially due to CKD, but favor also acute blood loss anemia-? bleed into lung mass +/- UGI bleed (dyspepsia [employer]) on PPI BID 12/25: Hgb remains stable 12/24 - S/P 2 units PRBCs 12/23/16. Hgb 9.9 today. 12/23 - Her hgb today is 7.7, which is a drop from yesterday. 12/23 - H pylori Ab 12/23 PT/PTT 14/47 (5) Goodpasture syndrome Status: Chronic Problem Text: Nephrology following. MED, ANCA, Anti-GBM ab ordered. Off cyclophosphamide, on prednisone 20 mg PO BID (6) Hypothyroid Status: Chronic Response to Treatment: Stable Problem Text: 09/2016 TSH 0.3 (7) End stage renal disease on dialysis Status: Chronic Problem Text: Due to Goodpasture's. Dialysis MWF, followed by nephrology. -off cyclophosphamide -prednisone 20 mg BID (8) Diastolic dysfunction Status: Chronic Problem Text: Compensated on exam (9) Hyperlipidemia Status: Chronic Problem Text: On statin, fish oil (10) Hypertension Status: Chronic Problem Text: Controlled on home regimen- losartan/metoprolol Plan/VTE VTE Prophylaxis Ordered?: Yes (heparin) Plan Family Medicine Attending Note: Patient seen and examined in dialysis today; she feels well and denies SOB. She has no respiratory distress on exam and lungs are relatively clear. She is apprehensive about the nature of the mass in her lungs. Bronch is planned for this afternoon by Dr. Morales with likely biopsy. Will continue to monitor. (KES) VS, I&O, 24H, Jose Vital Signs/I&O Vital Signs Date Time Temp Pulse Resp B/P Pulse Ox O2 Delivery O2 Flow Rate FiO2 12/25/16 04:00 96.0 69 18 130/61 97 Room Air 12/24/16 20:00 2.0 I&O- Last 24 Hours up to 6 AM 12/25/16 06:00 Intake Total 1020 ml Output Total 0 ml Balance 1020 ml Laboratory Data 24H LABS Laboratory Tests 2 12/25/16 05:16: Anion Gap 17H, White Blood Count 11.7H, Red Blood Count 3.49L, Hemoglobin 10.1L , Hematocrit 31.8L, Mean Corpuscular Volume 91.2, Mean Corpuscular Hemoglobin 28.9, Mean Corpuscular Hemoglobin Concent 31.7L, Red Cell Distribution Width 17.3H, Platelet Count 241, Neutrophils (%) (Auto) 91.3H, Lymphocytes (%) (Auto) 4.7L, Monocytes (%) (Auto) 3.0, Eosinophils (%) (Auto) 0.4, Basophils (%) (Auto ) 0.1, Neutrophils # (Auto) 10.7H, Lymphocytes # (Auto) 0.6L, Monocytes # (Auto ) 0.4, Eosinophils # (Auto) 0.0, Basophils # (Auto) 0.0, Blood Urea Nitrogen 65H , Creatinine 9.44H, Sodium Level 139, Potassium Level 4.9, Chloride Level 99, Carbon Dioxide Level 23, Calcium Level 7.8L, Glomerular Filtration Rate 4.4L, Iron Level 122, Large Unclassified Cells # 0.1, Large Unclassified Cells % 0.5, Random Vancomycin Level 18.0, Total Iron Binding Capacity 127L, Transferrin % Saturation 96.1H CBC/BMP Laboratory Tests 12/25/16 05:16 Calcium Level 7.8 L, Red Blood Count 3.49 L, Mean Corpuscular Volume 91.2, Mean Corpuscular Hemoglobin 28.9, Mean Corpuscular Hemoglobin Concent 31.7 L, Red Cell Distribution Width 17.3 H, Neutrophils (%) (Auto) 91.3 H, Lymphocytes (%) ( Auto) 4.7 L, Monocytes (%) (Auto) 3.0, Eosinophils (%) (Auto) 0.4, Basophils (% ) (Auto) 0.1, Neutrophils # (Auto) 10.7 H, Lymphocytes # (Auto) 0.6 L, Monocytes # (Auto) 0.4, Eosinophils # (Auto) 0.0, Basophils # (Auto) 0.0 Microbiology Microbiology 12/22/16 Blood Culture - Preliminary, Resulted No Growth after 48 hours. All Specime... 12/22/16 Blood Culture - Preliminary, Resulted No Growth after 48 hours. All Specime... VIRGIL LOVE PA-C Dec 25, 2016 09:50 ALEJANDRO CAMP MD Dec 25, 2016 12:47
[2016-12-25] MEDS ORDERED: HEPARIN 1,000 UNITS/ML 10ML VIAL (FOR RADIOLOGY& DIALYSIS ONLY) IV ONE (10:00)
[2016-12-25] MEDS ORDERED: PPD DOCUMENTATION ENTRY MISC XX SCH (10:00)
[2016-12-25] MEDS: NEOSPORIN TOP OINT 15GM TOP SCH ×2 (11:00→21:55)
[2016-12-25] MEDS: TIAGABINE 4 MG PO SCH (12:00)
[2016-12-25] MEDS ORDERED: PROPOFOL 200 MG/20 ML VIAL As Ordered ONE ×3 (12:56→14:47)
[2016-12-25] MEDS ORDERED: ROCURONIUM BROMIDE 50 MG/5 ML VIAL As Ordered ONE (12:56)
[2016-12-25] MEDS ORDERED: ONDANSETRON 4MG/2ML VIAL (J2405) As Ordered ONE (12:56)
[2016-12-25] MEDS ORDERED: dexameTHASONE 4 MG/ML 1ML VIAL (J1100) As Ordered ONE (12:56)
[2016-12-25] MEDS ORDERED: MIDAZOLAM INJ 2 MG/2 ML VIAL (J2250) As Ordered ONE (12:56)
[2016-12-25] MEDS ORDERED: LIDOCAINE 2% INJ 100 MG/5 ML SYRINGE As Ordered ONE (12:56)
[2016-12-25] MEDS ORDERED: fentaNYL 100 MCG/2 ML INJECTION (J3010) As Ordered ONE (12:56)
[2016-12-25] MEDS ORDERED: LIDOCAINE 2% INJ 100 MG/5 ML SDV (FOR ANES.) As Ordered ONE (13:06)
[2016-12-25] MEDS ORDERED: GLYCOPYRROLATE INJ 0.2 MG/ML 2 ML VIAL As Ordered ONE (13:12)
[2016-12-25] MEDS ORDERED: NEOSTIGMINE 1MG/ML 5 ML SYRINGE (J2710) As Ordered ONE (13:12)
[2016-12-25] MEDS ORDERED: EPINEPHrine 1MG/10ML SYRINGE 1.5IN As Ordered ONE (13:24)
[2016-12-25] MEDS ORDERED: LIDOCAINE VISCOUS 2% SOLN 15ML UDC As Ordered ONE (13:24)
[2016-12-25] MEDS ORDERED: THROMBIN SOLN 5,000 UNITS VIAL As Ordered ONE (13:25)
[2016-12-25] MEDS ORDERED: LIDOCAINE 1% MDV 20ML VIAL As Ordered ONE ×2 (13:25→14:17)
[2016-12-25] MEDS: methylPREDNISolone 500 MG, VIAL MATE ADAPTER 1 EACH in D5W 250 ML IV SCH (13:40)
[2016-12-25] MEDS ORDERED: LABETALOL HCL 100 MG/20 ML VIAL As Ordered ONE (14:50)
--- NOTE | 2016-12-25 15:27 | RO ---
DATE OF PROCEDURE: 12/25/2016 PREPROCEDURE DIAGNOSIS: Left upper lobe mass, abnormal chest CT. POSTPROCEDURE DIAGNOSIS: Left upper lobe mass, abnormal chest CT. FINDINGS: Friable airways. PROCEDURE: Bronchoscopy with transbronchial biopsies. PROCEDURALIST: Dr. Morales CREDIT ASSOCIATE: None. ANESTHESIA: Deep sedation. Please refer to anesthesia records for details. SPECIMENS: 1. Cytology brush left upper lobe. 2. Transbronchial biopsy, left upper lobe. 3. Bronchioalveolar lavage left upper lobe. COMPLICATIONS: None. REPLACEMENTS: None. DESCRIPTION OF PROCEDURE: After informed consent was reviewed with the patient in the preoperative area, she was brought back to OR number [id number]. Time-out was performed with two patient identifiers identifying correct site, correct procedure. The patient was then placed under sedation with intubation with an 8.0 endotracheal tube and the case was handed over to me. I then sprayed the airway with Cetacaine spray and advanced the T1-180 bronchoscope into the airway. All airways were suctioned. Some had a slight amount of mucus and others were very friable. The trachea was midline. Suad was sharp. Right and left mainstem bronchus was otherwise normal. RB 1 through 10 was normal without endobronchial lesions. LB 1 through 10 was normal without endobronchial lesions. I then wedged the scope into the left upper lobe, the apical posterior segment, and proceeded with transbronchial biopsies. This was followed by cytology brushes and bronchoalveolar lavage of the area. After adequate sampling and adequate hemostasis, the bronchoscope was removed. There were no observed complications. Postprocedure chest x-ray is pending. [facility]
[2016-12-25] MEDS ORDERED: LEVALBUTEROL 1.25 MG/0.5 ML CONCENTRATE NEB As Ordered ONE (15:28)
[2016-12-25] MEDS ORDERED: LEVALBUTEROL 1.25 MG/0.5 ML CONCENTRATE NEB NEB ONE (16:15)
--- NOTE | 2016-12-25 16:20 | REP ---
SINGLE VIEW CHEST: Single portable view of the chest is performed status-post bronchoscopy. Left upper lobe mass is again seen. There is no pneumothorax. Cardiac silhouette is somewhat magnified. IMPRESSION: No pneumothorax status-post bronchoscopy. Left apical mass again noted. Signed by Karan Aguilar MD 12/26/2016 08:04 P
[2016-12-25] MEDS ORDERED: fentaNYL 100 MCG/2 ML INJECTION (J3010) IV PRN (16:30)
[2016-12-25] MEDS ORDERED: ONDANSETRON 4MG/2ML VIAL (J2405) IV PRN (16:30)
[2016-12-25 16:50] LABS: VITAMIN B12 LEVEL > 2000 PG/ML (247-911)
[2016-12-25] MEDS: ACETAMINOPHEN TAB 650MG DOSE (2X325MG) PO PRN (17:19)
[2016-12-25 17:20] LABS: BAL DIFF IF INDICATED? YES (NO); COLOR PINK (COLORLESS); TNC 61 cells/uL (0-20)
[2016-12-25] MEDS ORDERED: VANCOMYCIN HCL 1,000 MG, VIAL MATE ADAPTER 1 EACH in D5W 250 ML IV SCH (18:15)
[2016-12-25] MEDS ORDERED: VANCOMYCIN HCL 750 MG, VIAL MATE ADAPTER 1 EACH in D5W 250 ML IV SCH (19:00)
[2016-12-25 19:05] LABS: CC BAL DIFF EXAM CYTOCENTRIFUGE
[2016-12-25] MEDS ORDERED: LOPERAMIDE 2 MG CAP PO ONE (21:00)
[2016-12-25] MEDS: LOSARTAN 50 MG TAB PO SCH (21:53)
[2016-12-25] MEDS: METOPROLOL TART 50 MG TAB PO SCH (21:54)
[2016-12-25] MEDS: CYANOCOBALAMIN 500 MCG TAB PO SCH (21:54)
[2016-12-25] MEDS: CETIRIZINE (ZyrTEC) 10 MG TAB PO SCH (21:54)
[2016-12-25] MEDS: PRAVASTATIN 20 MG TAB PO SCH (21:54)
[2016-12-25] MEDS: FLUTICASONE PROP 0.05% NASAL SPRAY 16 GM (FLONASE) SCH (21:55)
[2016-12-26 03:47] VITALS: BP 133/63
[2016-12-26] MEDS: PIPERACILLIN/TAZOBACTAM SOD 2.25 GM in D5W MINI-BAG PLUS 50 ML IV SCH ×2 (05:19→14:12)
[2016-12-26] MEDS: LEVOTHYROXINE 0.125 MG TAB (125 MCG) PO SCH (05:19)
[2016-12-26] MEDS: SLF 3 ML SYR IV SCH ×3 (05:20→21:48)
[2016-12-26 05:30] LABS: BASO % 0.2 % (0.0-1.0); EOS # 0.1 K/mm3 (0.0-0.50); EOS % 0.6 % (0.0-3.0); LARGE UNSTAINED CELL # 0.1 K/mm3 (0.0-0.4); LARGE UNSTAINED CELL % 1.4 % (0.0-4.0); LYMPH # 0.5 K/mm3 (1.5-4.5); LYMPH % 5.4 % (24.0-44.0); MEAN CORPUSCULAR HEMOGLOBIN 28.4 pg (27.0-33.0); MEAN CORPUSCULAR VOLUME 91.5 fl (80.0-96.0); MONO # 0.5 K/mm3 (0.0-0.8); MONO % 5.1 % (0.0-5.0); NEUTROPHILS # 8.6 K/mm3 (1.8-7.7); NEUTROPHILS % 87.3 % (36.0-66.0); PLATELET COUNT, AUTOMATED 242 k/mm3 (150-450); RED CELL DISTRIBUTION WIDTH 17.5 % (11.5-14.5); WHITE BLOOD COUNT 9.9 K/mm3 (4.0-10.0)
[2016-12-26 05:51] LABS: CREATININE FOR GFR 5.64 MG/DL (0.55-1.02); POTASSIUM SERUM 4.2 MEQ/L (3.5-5.1)
--- NOTE | 2016-12-26 06:59 | IPN ---
DATE: 12/24/2016 SUBJECTIVE: Patient was seen and examined at the bedside today in the morning. She feels much better. Her fever and shortness of breath is significantly better as well. She was given Solu-Medrol 500 mg IV yesterday because of positive history of Goodpasture disease. I see the patient has also been seen by pulmonary service. I appreciate their recommendations. REVIEW OF SYSTEMS: Patient denies any fever, chills, rigors, headache, nausea, vomiting, chest pain, shortness of breath. She denies any cough. She denies any pain in abdomen, constipation or diarrhea. The rest of review of systems is negative. OBJECTIVE: VITAL SIGNS: Temperature is 96.5 degrees Fahrenheit. Blood pressure is 128/63. Pulse is 68. Respiratory rate of 18. Saturating 96% on nasal cannula at 2 liters per minute. INTAKE/OUTPUT: Urine output is not recorded. Weight on the bed scale is 70 kg. PHYSICAL EXAMINATION: GENERAL: Patient is awake, alert, oriented times three, sitting on the bed, no apparent distress. HEAD AND NECK EXAM: Extraocular muscles intact. Pupils equally round and reactive to light. Mucous membranes are moist. Neck is supple. There is no jugular venous distention (JVD). CARDIOVASCULAR: S1, S2. Regular rate. No murmur, rub or gallop. RESPIRATORY: Chest is clear to auscultation bilaterally. Bilaterally equal air entry. No rales or rhonchi. ABDOMEN: Is soft, positive bowel sounds, nontender. No ascites. No organomegaly. EXTREMITIES: No clubbing or cyanosis. Pulses are 2+. CENTRAL NERVOUS SYSTEM (INTENSIVE CARE NURSE): No focal neurological deficit. Power is 5/5 in all extremities. PSYCHIATRIC: Normal mood and affect. SKIN: No rashes or ulcers. LABORATORY REVIEW: CBC showed a WBC of 13, hemoglobin is 9.9, platelets are 212. BMP showed sodium 138, potassium 4.7, chloride 99, bicarbonate 26, BUN 46, creatinine is 7.6, calcium is 8.3, and immunology screen is still pending. Microbiology: Blood cultures are negative so far. CURRENT MEDICATIONS: Patient's medications were all reviewed by me. She continues to be on IV Zosyn and vancomycin, and she was started on Solu-Medrol 500 mg IV every 24 hours yesterday. Today will be the second dose. ASSESSMENT: 66-year-old female with past medical history of end-stage renal disease secondary to Goodpasture disease, admitted this time with fever, chills, rigors. She was found to have masses on the CAT scan of the chest. Nephrology service following the patient for management of end-stage renal disease. PLAN: 1. Fever and lung lesions on the CAT scan of the chest. Given the positive previous history of Goodpasture disease and pulmonary hemorrhages, I have started the patient on Solu-Medrol 500 mg IV daily. Immunology studies are still pending. Patient was also seen by the pulmonary service. I appreciated their recommendations. Bronchoscopy and biopsy is planned for tomorrow. Continue the antibiotics at this time. 2. End-stage renal disease on hemodialysis. Patient's regular days are Sunday, Sunday, Sunday. She will be dialyzed tomorrow morning according to her regular schedule. 3. Anemia in end-stage renal disease. Patient's hemoglobin was low. Although she denies hemoptysis, she was given 2 units of packed red blood cells (PRBC) transfusions yesterday. Her hemoglobin is 9.9. Patient will be given a dose of Aranesp with hemodialysis tomorrow morning. 4. Hypertension. Blood pressure is acceptable at this time. Continue current dose of losartan and metoprolol.
[2016-12-26] MEDS: ALBUTEROL SULFATE 2.5 MG/0.5 ML INH NEB SOLN INH SCH ×4 (07:34→19:31)
[2016-12-26] MEDS: FLUTICASONE HFA 110 MCG 12 GM INHALER (FLOVENT) INH SCH ×2 (07:35→19:31)
[2016-12-26 07:45] VITALS: BP 148/67
[2016-12-26] MEDS: METOPROLOL TART 50 MG TAB PO SCH ×2 (08:29→21:45)
[2016-12-26] MEDS: LACTOBACILLUS ACIDOPHILUS CAP (BACID) PO SCH ×2 (08:29→21:44)
[2016-12-26] MEDS: DICYCLOMINE 10 MG CAP PO SCH ×4 (08:29→21:43)
[2016-12-26] MEDS: PANTOPRAZOLE 40MG TAB (PROTONIX) PO SCH ×2 (08:30→21:44)
[2016-12-26] MEDS: guaiFENesin ER 600 MG TAB PO SCH ×2 (08:30→21:44)
[2016-12-26] MEDS: (RENVELA) SEVELAMER **CARBONate** 800 MG TAB PO SCH ×2 (08:30→17:50)
[2016-12-26] MEDS: OMEGA-3 1050MG CAPSULE PO SCH (08:30)
[2016-12-26] MEDS: NEOSPORIN TOP OINT 15GM TOP SCH ×2 (08:30→21:43)
[2016-12-26] MEDS ORDERED: predniSONE 20 MG TAB PO SCH (09:00)
[2016-12-26 09:10] LABS: ALBUMIN 2.4 GM/DL (3.2-5.2)
--- NOTE | 2016-12-26 09:43 | IPNPDOC ---
Subjective Date Seen The patient was seen on 12/26/16. Subjective Chief Complaint/HPI Pt this morning continues to feel better. She does c/o loose stools 5 yest and 2 this morning. Noted some blood on the toilet paper when she wiped after her last BM. Denies abd pain. General: Denies: Fatigue Constitutional: Denies: Chills, Fever Pulmonary: Denies: Cough, Dyspnea Cardiovascular: Denies: Chest Pain, Palpitations Gastrointestinal: Reports: Diarrhea, Denies: Abdominal Pain, Nausea, Vomiting Neurological: Denies: Weakness Psych: Reports: Mood Normal Objective Physical Examination General Exam: Positive: Alert, No Acute Distress Eye Exam: Positive: PERRLA, Negative: Sclera icteric ENT Exam: Positive: Atraumatic, Mucous membr. moist/pink, Pharynx Normal Neck Exam: Positive: Supple, Negative: JVD Chest Exam: Positive: Clear to auscultation, Diminished, Negative: Wheezing Heart Exam: Positive: Normal S1, Normal S2, Other (distant heart sounds), Rate Normal, Regular Rhythm, Negative: Murmurs, Rubs Abdomen Exam: Positive: Normal bowel sounds, Soft, Negative: Tenderness Extremity Exam: Negative: Edema Skin Exam: Positive: Nl turgor and temperature, Negative: Breakdown, Rash Assessment /Plan Problems (1) Diarrhea Status: Acute Problem Text: Will add GI panel, has h/o C diff. (2) Pneumonia Status: Acute Problem Text: 12/26 Zosyn/Vanco D5 - resp status stable. Afebrile, WBC normalized -case d/w Dr. Morales-doubt PN; therefore, stopped abx (jayshree given C diff h/o) 12/25 Zosyn/Vanco D4 - pu 12/24 - Zosyn/Vanco D3 for possible necrotizing pneumonia based on ct findings. Blood cx no growth after 24 hours. Afebrile. Discussed with nephrology. Will consult pulmonary. D2 abx- vanco/zosyn for possible necrotizing pneumonia based on ct findings. bcx pending. fever curve improving. continues to require O2. -acappella 12/23 PPD placed (3) Lung mass Status: Acute Problem Text: 12/26 - Await bronch results 12/25 - Pulm plans Bronch today. suspicious for malignancy. 12/24 Dr. Morales consulted-plan bronch for AM 12/22/16 CT CAP 66 mm necrotic mass-favor tumor vs infectious +/- recurrent Goodpasture's, B iliac crest sclerotic lesions (CRP 29, ESR 129!) 12/23/16 Nephro started SM She has significant risk for malignancy considering smoking hx/chronic immune suppression (4) COPD (chronic obstructive pulmonary disease) Status: Acute Response to Treatment: Stable Problem Text: Stable at this point (5) Chronic anemia Status: Chronic Problem Text: Partially due to CKD, but favor also acute blood loss anemia-? 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 Hgb 9.9 today. 12/23 - Her hgb today is 7.7, which is a drop from yesterday. 12/23 - H pylori Ab 12/23 PT/PTT 14/47 12/23 HO - (6) Goodpasture syndrome Status: Chronic Problem Text: Nephrology following. MED, ANCA, Anti-GBM ab ordered. Off cyclophosphamide, on prednisone 20 mg PO BID (7) Hypothyroid Status: Chronic Response to Treatment: Stable Problem Text: 09/2016 TSH 0.3 (8) End stage renal disease on dialysis Status: Chronic Problem Text: Due to Goodpasture's. Dialysis MWF, followed by nephrology. -off cyclophosphamide -prednisone 20 mg BID (9) Diastolic dysfunction Status: Chronic Problem Text: Compensated on exam (10) Hyperlipidemia Status: Chronic Problem Text: On statin, fish oil (11) Hypertension Status: Chronic Problem Text: Controlled on home regimen- losartan/metoprolol Plan/VTE VTE Prophylaxis Ordered?: Yes (heparin) VS, I&O, 24H, Fishbone Vital Signs/I&O Vital Signs Date Time Temp Pulse Resp B/P Pulse Ox O2 Delivery O2 Flow Rate FiO2 12/26/16 08:29 77 148/67 12/26/16 08:00 Nasal Cannula 2.0 12/26/16 07:45 96.9 20 97 I&O- Last 24 Hours up to 6 AM 12/26/16 06:00 Intake Total 790 ml Output Total 2000 ml Balance -1210 ml Laboratory Data 24H LABS Laboratory Tests 2 12/25/16 15:40: Bronchial Fluid WBC 61H, Bronchial Specimen Source LEFT UPPER LOBE, Broncho Lavage Monocytes/Macrophage 26, Bronchoalveolar Lavage Appearance CLOUDYH, Bronchoalveolar Lavage Color PINKH, Bronchoalveolar Lavage Eosinophils 9, Bronchoalveolar Lavage Lymphocytes 13, Bronchoalveolar Lavage Neutrophils 52 12/26/16 05:15: Albumin 2.4L, Anion Gap 14, White Blood Count 9.9, Red Blood Count 3.51L, Hemoglobin 10.0L, Hematocrit 32.1L, Mean Corpuscular Volume 91.5, Mean Corpuscular Hemoglobin 28.4, Mean Corpuscular Hemoglobin Concent 31.0L, Red Cell Distribution Width 17.5H, Platelet Count 242, Neutrophils (%) (Auto) 87.3H , Lymphocytes (%) (Auto) 5.4L, Monocytes (%) (Auto) 5.1H, Eosinophils (%) (Auto ) 0.6, Basophils (%) (Auto) 0.2, Neutrophils # (Auto) 8.6H, Lymphocytes # (Auto ) 0.5L, Monocytes # (Auto) 0.5, Eosinophils # (Auto) 0.1, Basophils # (Auto) 0.0 , Blood Urea Nitrogen 31#H, Creatinine 5.64H, Sodium Level 141, Potassium Level 4.2, Chloride Level 99, Carbon Dioxide Level 28, Calcium Level 8.0L, Glomerular Filtration Rate 8.0L, Large Unclassified Cells # 0.1, Large Unclassified Cells % 1.4 CBC/BMP Laboratory Tests 12/26/16 05:15 Calcium Level 8.0 L, Red Blood Count 3.51 L, Mean Corpuscular Volume 91.5, Mean Corpuscular Hemoglobin 28.4, Mean Corpuscular Hemoglobin Concent 31.0 L, Red Cell Distribution Width 17.5 H, Neutrophils (%) (Auto) 87.3 H, Lymphocytes (%) ( Auto) 5.4 L, Monocytes (%) (Auto) 5.1 H, Eosinophils (%) (Auto) 0.6, Basophils ( %) (Auto) 0.2, Neutrophils # (Auto) 8.6 H, Lymphocytes # (Auto) 0.5 L, Monocytes # (Auto) 0.5, Eosinophils # (Auto) 0.1, Basophils # (Auto) 0.0 Microbiology Microbiology 12/22/16 Blood Culture - Preliminary, Resulted No Growth after 72 hours. All specime... 12/22/16 Blood Culture - Preliminary, Resulted No Growth after 72 hours. All specime... 12/25/16 Stool Occult Blood (MOISÉS) - Final, Complete 12/25/16 Acid Fast Stain - Final, Resulted 12/25/16 Mycobacterial Culture, Resulted Pending 12/25/16 Fungal Smear, Resulted Pending 12/25/16 Fungal Culture, Resulted Pending 12/25/16 Gram Stain - Final, Resulted 12/25/16 Bronchoalveolar Lavage Culture, Resulted Pending VIRGIL LOVE PA-C Dec 26, 2016 09:43 Wil Lopez M.D. Dec 26, 2016 17:56
--- NOTE | 2016-12-26 10:40 | IPN ---
DATE: 12/25/2016 SUBJECTIVE: Patient was seen and examined at the bedside today in the morning during hemodialysis. The patient was tolerating the hemodialysis procedure well. There were no active complaints. REVIEW OF SYSTEMS: The patient denies any fever, chills, rigors, headache, nausea, vomiting, chest pain or shortness of breath. The rest of the review of systems is negative. OBJECTIVE: VITAL SIGNS: Temperature 98.8 degrees Fahrenheit. Blood pressure 145/64. Pulse is 84. Respiratory rate 18. Saturating 96% on nasal cannula at 2 liters per minute. INTAKE AND OUTPUT: Urine output is not recorded. Weight on the bed scale is 71.3 kg. PHYSICAL EXAM: GENERAL: The patient is awake, alert and oriented times three, laying in bed, getting hemodialysis done. HEAD AND NECK EXAM: Extraocular muscles intact. Pupils equally round and reactive to light. Neck is supple. There is no jugular venous distention (JVD). CARDIOVASCULAR: S1, S2. Regular rate. No murmur, rub or gallop. RESPIRATORY: Chest is clear to auscultation bilaterally. Bilateral equal air entry. No rales or rhonchi. ABDOMEN: Soft. Positive bowel sounds. Nontender. No ascites. No organomegaly. EXTREMITIES: No clubbing or cyanosis. Pulses are 2+. 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 Power is 5/5 in all extremities. PSYCHIATRIC: Normal mood and affect. LAB REVIEW: CBC showed a WBC of 11.7, hemoglobin 10.1 and platelets are 241. BMP showed sodium 139, potassium 4.9, chloride 99, bicarbonate 23, BUN 65, creatinine 9.4, iron level 122, TIBC 127, transferrin saturation 96, vitamin B12 more than 2000. Immunology is still pending. MICROBIOLOGY: Stool for occult blood is negative. IMAGING: A chest x-ray done after bronchoscopy showed no pneumothorax. Left apical mass was again noted. CURRENT MEDICATIONS: The patient's medications were all reviewed by me. The patient got the third dose of Solu-Medrol 500 mg IV every 24 hours. He has been started on prednisone 20 mg by mouth twice a day starting from tomorrow. ASSESSMENT: 66-year-old female with past medical history of end stage renal disease secondary to Goodpasture disease admitted this time with fever, chills and rigors and she was found to have a mass in the lung on a CAT scan of the chest. Nephrology service is following the patient for management of end stage renal disease. PLAN: 1. End stage renal disease on hemodialysis. The patient is being dialyzed according to her regular schedule. We shall try to do an ultrafiltration of 2.5 liters as tolerated by her blood pressure. 2. Fever and lung lesion on the CAT scan of the chest. The patient is getting pulse dose of Solu-Medrol 500 mg IV daily, today is day three. Autoimmune serologies are still pending. Patient got the bronchoscopy done today by pulmonology that showed very friable mucosa. Biopsy reports are pending. 3. Anemia in end stage renal disease. Patient's hemoglobin is stable at this time. Continue current dose of Aranesp 200 mcg IV with hemodialysis. 4. Hypertension. Blood pressure is acceptable at this time. Continue current dose of losartan and metoprolol.
[2016-12-26 12:00] VITALS: BP 143/67
[2016-12-26] MEDS: TIAGABINE 4 MG PO SCH (12:03)
[2016-12-26] MEDS: metroNIDAZOLE (FLAGYL) 500 MG TAB PO SCH ×2 (14:12→21:43)
[2016-12-26] MEDS: CHECK TO SEE IF PATIENT IS RECEIVING DIALYSIS TODAY AND REFER TO THE VANCOMYCIN ORDER XX SCH (15:24)
[2016-12-26] MEDS: HEPARIN SOD (PORCINE) 5000 UNITS/ML VIAL SQ SCH ×2 (15:27→21:43)
[2016-12-26 15:30] VITALS: BP 158/72
[2016-12-26] MEDS: FLUTICASONE PROP 0.05% NASAL SPRAY 16 GM (FLONASE) SCH (21:43)
[2016-12-26] MEDS: CETIRIZINE (ZyrTEC) 10 MG TAB PO SCH (21:44)
[2016-12-26] MEDS: PRAVASTATIN 20 MG TAB PO SCH (21:44)
[2016-12-26] MEDS: CYANOCOBALAMIN 500 MCG TAB PO SCH (21:44)
[2016-12-26] MEDS: LOSARTAN 50 MG TAB PO SCH (21:45)
[2016-12-26] MEDS: predniSONE 10 MG TAB PO SCH (21:46)
[2016-12-26] MEDS: ACETAMINOPHEN TAB 650MG DOSE (2X325MG) PO PRN (21:48)
[2016-12-26 22:00] VITALS: BP 146/68
[2016-12-27 06:00] VITALS: BP 157/75
[2016-12-27 06:10] LABS: BASO % 0.2 % (0.0-1.0); EOS # 0.1 K/mm3 (0.0-0.50); EOS % 0.8 % (0.0-3.0); LARGE UNSTAINED CELL % 0.5 % (0.0-4.0); LYMPH # 0.5 K/mm3 (1.5-4.5); LYMPH % 5.5 % (24.0-44.0); MEAN CORPUSCULAR HEMOGLOBIN 28.8 pg (27.0-33.0); MEAN CORPUSCULAR HGB CONC 30.6 g/dl (32.0-36.5); MEAN CORPUSCULAR VOLUME 94.1 fl (80.0-96.0); MONO # 0.3 K/mm3 (0.0-0.8); MONO % 3.4 % (0.0-5.0); NEUTROPHILS # 7.8 K/mm3 (1.8-7.7); NEUTROPHILS % 89.7 % (36.0-66.0); PLATELET COUNT, AUTOMATED 256 k/mm3 (150-450); RED CELL DISTRIBUTION WIDTH 17.2 % (11.5-14.5); WHITE BLOOD COUNT 8.7 K/mm3 (4.0-10.0)
[2016-12-27 06:24] LABS: CALCIUM LEVEL 8.2 MG/DL (8.8-10.2); CREATININE FOR GFR 7.56 MG/DL (0.55-1.02); GLOMERULAR FILTRATION RATE 5.7 (>45)
[2016-12-27] MEDS: metroNIDAZOLE (FLAGYL) 500 MG TAB PO SCH ×3 (06:33→21:22)
[2016-12-27] MEDS: PANTOPRAZOLE 40MG TAB (PROTONIX) PO SCH ×2 (06:33→21:24)
[2016-12-27] MEDS: HEPARIN SOD (PORCINE) 5000 UNITS/ML VIAL SQ SCH (06:33)
[2016-12-27] MEDS: OMEGA-3 1050MG CAPSULE PO SCH (06:33)
[2016-12-27] MEDS: LEVOTHYROXINE 0.125 MG TAB (125 MCG) PO SCH (06:33)
[2016-12-27] MEDS: LACTOBACILLUS ACIDOPHILUS CAP (BACID) PO SCH ×2 (06:34→21:21)
[2016-12-27] MEDS: DICYCLOMINE 10 MG CAP PO SCH ×4 (06:34→21:23)
[2016-12-27] MEDS: SLF 3 ML SYR IV SCH ×3 (06:34→21:25)
[2016-12-27] MEDS: (RENVELA) SEVELAMER **CARBONate** 800 MG TAB PO SCH ×2 (06:34→18:24)
[2016-12-27] MEDS: guaiFENesin ER 600 MG TAB PO SCH ×2 (06:34→21:23)
[2016-12-27] MEDS: NEOSPORIN TOP OINT 15GM TOP SCH ×2 (06:35→21:23)
[2016-12-27] MEDS: predniSONE 10 MG TAB PO SCH ×2 (06:35→21:21)
[2016-12-27] MEDS ORDERED: LOPERAMIDE 2 MG CAP PO ONE (07:45)
[2016-12-27] MEDS: ALBUTEROL SULFATE 2.5 MG/0.5 ML INH NEB SOLN INH SCH ×4 (07:57→19:22)
[2016-12-27] MEDS: FLUTICASONE HFA 110 MCG 12 GM INHALER (FLOVENT) INH SCH ×2 (07:58→19:22)
--- NOTE | 2016-12-27 08:41 | IPNPDOC ---
Subjective Date Seen The patient was seen on 12/27/16. Subjective Chief Complaint/HPI The patient is a 66-year-old female admitted with a reason for visit of Pneumonia. Events since last encounter c/o diarrhea. has hx of IBS. GI panel and OB negative. Imodium given with relief. Pathology continue to pend for lung mass biopsy. Planning on HD today. Constitutional: Denies: Chills, Fever, Night Sweats Pulmonary: Reports: Cough, Dyspnea Cardiovascular: Denies: Chest Pain, Lt Headedness, Orthopnea, Palpitations, Paroxysmal Noc. Dyspnea Gastrointestinal: Reports: Diarrhea, Denies: Abdominal Pain, Constipation, Nausea, Vomiting Psych: Reports: Mood Normal, Denies: Depression, Memory Issues Objective Physical Examination General Exam: Positive: Alert, No Acute Distress Eye Exam: Positive: PERRLA, Negative: Sclera icteric ENT Exam: Positive: Atraumatic, Mucous membr. moist/pink, Pharynx Normal Neck Exam: Positive: Supple, Negative: JVD Chest Exam: Positive: Clear to auscultation, Diminished, Negative: Wheezing Heart Exam: Positive: Normal S1, Normal S2, Other (distant heart sounds), Rate Normal, Regular Rhythm, Negative: Murmurs, Rubs Abdomen Exam: Positive: Normal bowel sounds, Soft, Negative: Tenderness Extremity Exam: Negative: Edema Skin Exam: Positive: Nl turgor and temperature, Negative: Breakdown, Rash Assessment /Plan Problems (1) Diarrhea Status: Acute Problem Text: GI panel neg. IV abx stopped. Given Imodium prn. (2) Pneumonia Status: Acute Problem Text: 12/27/2016: On prednisone per Pulmolology 12/26 Zosyn/Vanco D5 - resp status stable. Afebrile, WBC normalized-case d/w Dr. Morales-doubt PN; therefore, stopped abx (jayshree given C diff h/o) 12/25 Zosyn/Vanco D4 - pu 12/24 - Zosyn/Vanco D3 for possible necrotizing pneumonia based on ct findings. Blood cx no growth after 24 hours. Afebrile. Discussed with nephrology. Will consult pulmonary. D2 abx- vanco/zosyn for possible necrotizing pneumonia based on ct findings. bcx pending. fever curve improving. continues to require O2. -acappella 3/4 PPD placed (3) Lung mass Status: Acute Problem Text: 12/27/2016: Pulmonology following. bx pending. 12/26 - Await bronch results 12/25 - Pulm plans Bronch today. suspicious for malignancy. 12/24 Dr. Morales consulted-plan bronch for AM 12/22/16 CT CAP 66 mm necrotic mass-favor tumor vs infectious +/- recurrent Goodpasture's, B iliac crest sclerotic lesions (CRP 29, ESR 129!) 12/23/16 Nephro started SM She has significant risk for malignancy considering smoking hx/chronic immune suppression (4) COPD (chronic obstructive pulmonary disease) Status: Acute Response to Treatment: Stable Problem Text: Stable at this point (5) Chronic anemia Status: Chronic Problem Text: Partially due to CKD, but favor also acute blood loss anemia-? 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 Hgb 9.9 today. 12/23 - Her hgb today is 7.7, which is a drop from yesterday. 12/23 - H pylori Ab 12/23 PT/PTT 14/47 12/23 HO - (6) Goodpasture syndrome Status: Chronic Problem Text: Nephrology following. MED, ANCA, Anti-GBM ab ordered. Off cyclophosphamide, on prednisone 20 mg PO BID (7) Hypothyroid Status: Chronic Response to Treatment: Stable Problem Text: 09/2016 TSH 0.3 (8) End stage renal disease on dialysis Status: Chronic Problem Text: Due to Goodpasture's. Dialysis MWF, followed by nephrology. -off cyclophosphamide -prednisone 20 mg BID (9) Diastolic dysfunction Status: Chronic Problem Text: Compensated on exam (10) Hyperlipidemia Status: Chronic Problem Text: On statin, fish oil (11) Hypertension Status: Chronic Problem Text: Controlled on home regimen- losartan/metoprolol Plan/VTE VTE Prophylaxis Ordered?: Yes (heparin) Plan Family Medicine Attending Note: Patient seen and examined this afternoon; I d/w Essence Branham NP and I agree with her note. Patient is s/p Ct-guided lung biopsies by IR of mass; pathology pending. Dr. Morales restarted antibiotics ( ceftriaxone, metronidazole) for pneumonia and has continued her on steroids and her inhalers - patient denies SOB at present. BP is elevated this afternoon ( 179/90); patient is quite anxious s/p biopsies and about pending results, so this may be the cause; will give an additional dose of metoprolol as she receives BID dosing on non-dialysis days. (KES) VS, I&O, 24H, Jose Vital Signs/I&O Vital Signs Date Time Temp Pulse Resp B/P Pulse Ox O2 Delivery O2 Flow Rate FiO2 12/27/16 06:00 97.3 70 18 157/75 94 Nasal Cannula 2.0 I&O- Last 24 Hours up to 6 AM 12/27/16 06:00 Intake Total 1380 ml Output Total 0 ml Balance 1380 ml Laboratory Data 24H LABS Laboratory Tests 2 12/27/16 05:17: Anion Gap 12, White Blood Count 8.7, Red Blood Count 3.51L, Hemoglobin 10.1L, Hematocrit 33.0L, Mean Corpuscular Volume 94.1, Mean Corpuscular Hemoglobin 28.8 , Mean Corpuscular Hemoglobin Concent 30.6L, Red Cell Distribution Width 17.2H, Platelet Count 256, Neutrophils (%) (Auto) 89.7H, Lymphocytes (%) (Auto) 5.5L, Monocytes (%) (Auto) 3.4, Eosinophils (%) (Auto) 0.8, Basophils (%) (Auto) 0.2, Neutrophils # (Auto) 7.8H, Lymphocytes # (Auto) 0.5L, Monocytes # (Auto) 0.3, Eosinophils # (Auto) 0.1, Basophils # (Auto) 0.0, Blood Urea Nitrogen 54#H, Creatinine 7.56H, Sodium Level 140, Potassium Level 4.0, Chloride Level 101, Carbon Dioxide Level 27, Calcium Level 8.2L, Glomerular Filtration Rate 5.7L, Large Unclassified Cells # 0.0, Large Unclassified Cells % 0.5 CBC/BMP Laboratory Tests 12/27/16 05:17 Calcium Level 8.2 L, Red Blood Count 3.51 L, Mean Corpuscular Volume 94.1, Mean Corpuscular Hemoglobin 28.8, Mean Corpuscular Hemoglobin Concent 30.6 L, Red Cell Distribution Width 17.2 H, Neutrophils (%) (Auto) 89.7 H, Lymphocytes (%) ( Auto) 5.5 L, Monocytes (%) (Auto) 3.4, Eosinophils (%) (Auto) 0.8, Basophils (% ) (Auto) 0.2, Neutrophils # (Auto) 7.8 H, Lymphocytes # (Auto) 0.5 L, Monocytes # (Auto) 0.3, Eosinophils # (Auto) 0.1, Basophils # (Auto) 0.0 Microbiology Microbiology 12/22/16 Blood Culture - Preliminary, Resulted No Growth after 72 hours. All specime... 12/22/16 Blood Culture - Preliminary, Resulted No Growth after 72 hours. All specime... 12/26/16 Gastrointestinal Tract Panel (PCR) - Final, Complete 12/25/16 Stool Occult Blood (MOISÉS) - Final, Complete 12/25/16 Acid Fast Stain - Final, Resulted 12/25/16 Mycobacterial Culture, Resulted Pending 12/25/16 Fungal Smear, Resulted Pending 12/25/16 Fungal Culture, Resulted Pending 12/25/16 Gram Stain - Final, Resulted 12/25/16 Bronchoalveolar Lavage Culture, Resulted Pending Essence Branham Dec 27, 2016 08:41 ALEJANDRO CAMP MD Dec 27, 2016 15:56
--- NOTE | 2016-12-27 09:42 | IPN ---
DATE: 12/26/2016 SUBJECTIVE: Patient was seen and examined at the bedside today. She got the bronchoscopy done yesterday. She denies any acute complaints. She said she just had mild cough after the procedure. Biopsy reports are pending. Patient was started on oral prednisone today. REVIEW OF SYSTEMS: Patient denies any fever, chills, rigors, headache, nausea, vomiting, chest pain, shortness of breath. She reports mild cough. She denies any pain in abdomen. Patient does report loose stools. She had about five episodes yesterday and around two episodes today morning. OBJECTIVE: Vital signs: Temperature is 97.3 degrees Fahrenheit, blood pressure is 158/72, pulse is 83, respiratory rate of 18, saturating 95% on nasal cannula at 2 liters. Intake and output: Urine output is not recorded. Patient got hemodialysis done yesterday. 2 liter of fluid was removed. Weight on the bed scale is 68.5 kg today. PHYSICAL EXAMINATION: General: Patient is awake, alert, oriented times three, sitting in the bed, no apparent distress. Head and neck exam: Extraocular muscles intact. Pupils equally round and reactive to light. Neck is supple. There is no jugular venous distention. Cardiovascular: S1, S2. Regular rate. No murmur, rub or gallop. Respiratory: Chest is clear to auscultation bilaterally. Bilateral equal air entry. No rales or rhonchi. Abdomen: Soft, positive bowel sounds, nontender, no ascites, no organomegaly. Extremities: No clubbing or cyanosis. Pulses are 2+. Central nervous system: No focal neurological deficit. Power is 5/5 in all extremities. Psych: Normal mood and affect. LAB REVIEW: CBC showed WBC 9.9, hemoglobin is 10, platelets are 242. BMP showed sodium 141, potassium 4.2, chloride 99, bicarbonate 28, BUN 31, creatinine 5.6. Albumin is 2.4. Immunology is pending. Left upper lobe bronchoscopy showed 61 WBC, it was cloudy. Neutrophils are 52%. Microbiology: Bronchoalveolar lavage showed few WBCs, moderate epithelial cells and few gram positive cocci. CURRENT MEDICATIONS: Patient's medications were all reviewed by me. Her vancomycin and Zosyn has been stopped. Her prednisone dose was increased to 35 mg by mouth twice daily. She was started on Flagyl 500 mg by mouth every 8 hours today for loose stools. ASSESSMENT: 66-year-old female with past medical history of end stage renal disease secondary to Goodpasture disease admitted this time with fever, chills and rigors. She was found to have a mass in the lung on a CT scan of the chest. Nephrology service following the patient for management of end stage renal disease. PLAN: 1. End stage renal disease on hemodialysis. Patient was dialyzed yesterday. Next hemodialysis session will be tomorrow. 2. Fever and lung lesions on CT scan of the chest. Patient was empirically treated with Solu-Medrol 500 mg IV times 3 days for possible relapse of Goodpasture disease. She also got antibiotics. Her symptoms are better. Bronchoscopy was done yesterday. Biopsy reports are still pending. Antibiotics have been stopped by the primary team. 3. Diarrhea. Patient has history Clostridium (C) difficile in the past. I have ordered Clostridium difficile and started the patient on oral Flagyl. Clostridium difficile result is pending. If Clostridium difficile is negative, I will stop the Flagyl dose. 4. Hypertension. Blood pressure is acceptable at this time. Continue current dose of Aranesp 200 mcg IV with hemodialysis. 5. History of Goodpasture disease. As mentioned above, patient was given 3 days of Solu-Medrol 500 mg IV daily. I have switched her to prednisone 35 mg by mouth twice daily. Once the neurology results come back, then steroid dose will be tapered accordingly.
[2016-12-27] MEDS ORDERED: cefTRIAXone SOD 1 GM in D5W MINI-BAG PLUS 50 ML IV SCH (10:00)
[2016-12-27] MEDS ORDERED: metroNIDAZOLE 500 MG in APPROPRIATE DILUENT 1 EA IV SCH ×2 (10:00→15:00)
[2016-12-27] MEDS ORDERED: HEPARIN 1,000 UNITS/ML 10ML VIAL (FOR RADIOLOGY& DIALYSIS ONLY) IV ONE (10:45)
[2016-12-27] MEDS ORDERED: LIDOCAINE 1% MDV 20ML VIAL As Ordered ONE (13:24)
[2016-12-27 15:00] VITALS: BP 175/79
[2016-12-27 15:15] VITALS: BP 179/69
[2016-12-27] MEDS: ACETAMINOPHEN TAB 650MG DOSE (2X325MG) PO PRN ×2 (15:15→21:21)
[2016-12-27] MEDS: cefTRIAXone SOD 1 GM in D5W MINI-BAG PLUS 50 ML IV SCH (15:15)
[2016-12-27] MEDS: TIAGABINE 4 MG PO SCH (15:23)
[2016-12-27 15:45] VITALS: BP 179/80
[2016-12-27] MEDS: CHECK TO SEE IF PATIENT IS RECEIVING DIALYSIS TODAY AND REFER TO THE VANCOMYCIN ORDER XX SCH (16:00)
[2016-12-27 16:15] VITALS: BP 160/65
[2016-12-27] MEDS ORDERED: METOPROLOL TART 50 MG TAB PO ONE (16:15)
--- NOTE | 2016-12-27 17:31 | IPN ---
DATE: 12/27/2016 SUBJECTIVE: The patient was seen and examined at the bedside today in the morning during hemodialysis procedure. The patient was tolerating the hemodialysis procedure well. The patient reports that she is having some cough and she is still having some loose stools, but the episodes and frequency have decreased. Her Clostridium (C.) difficile came back negative today. REVIEW OF SYSTEMS The patient denies any fevers, chills, rigors, headaches, nausea, vomiting, chest pain or shortness of breath. She does report some dry cough. The patient denies any pain abdomen or constipation. She reports some loose stools. Rest of review of systems is negative. OBJECTIVE: VITAL SIGNS: Temperature is 97.3 degrees Fahrenheit, blood pressure is 157/75, pulse is 70, respiratory rate of 18, saturating 94% on nasal cannula. INTAKE AND OUTPUT: There is no urine output recorded. Weight in the bed scale is 70 kg. PHYSICAL EXAMINATION: GENERAL: The patient is awake, alert, and oriented times three, lying in the bed in no apparent distress, getting hemodialysis done. HEAD/NECK: Extraocular muscles intact. Pupils equal, round, and reactive to light. Neck is supple. There is no jugular venous distention (JVD). CARDIOVASCULAR: S1, S2. Regular rate. No murmur, rub, or gallop. RESPIRATORY: Mild expiratory rhonchi at the left upper lung zone. Otherwise, no crepitations. Bilaterally equal air entry. ABDOMEN: Soft. Positive bowel sounds. Nontender. No ascites. No organomegaly. EXTREMITIES: No clubbing or cyanosis. Pulses are 2+. 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 Power is 5/5 in all extremities. ARTERIOVENOUS (AV) ACCESS: The patient has a right upper arm AV fistula with positive thrill and bruit. In the distal portion of the fistula, has a saccular dilatation; however, no active oozing or bleeding. LABORATORY DATA: CBC showed a WBC 8.7, hemoglobin 10.1, platelets are 256. BMP shows sodium 140, potassium 4, chloride 101, bicarbonate 27, BUN 54, creatinine 7.5. Autoimmune serology is still pending. Pathology report is still pending. CURRENT MEDICATIONS: The patient's medications are all reviewed by me. Her vancomycin and Zosyn have been stopped. The patient has been started on Rocephin 1 gram intravenous (IV) every 12 hours, and Flagyl 500 mg by mouth every eight hours. She continues to be on prednisone 35 mg by mouth twice a day. ASSESSMENT: A 66-year-old female with past medical history of end-stage renal disease secondary to Goodpasture's diseases, admitted this time with fevers, chills, and rigors. She was found to have a mass in the lung on CT scan and possible pneumonia. Nephrology service following the patient for management of end-stage renal disease. PLAN: 1. End-stage renal disease on hemodialysis. The patient is getting dialysis according to her regular schedule today. Ultrafiltration goal will be 2.5 liters as tolerated by her blood pressure. 2. Pneumonia and mass in the lung seen on CT scan. The patient got bronchoscopy. Official report is pending, but as per preliminary report, the patient probably has pneumonia. The only got four days of IV antibiotics. We are going to restart IV ceftriaxone today. The patient is also going to get a CT-guided biopsy of the lung mass today. 3. Diarrhea. The patient's C. difficile is (please verify), but she has a history of C. difficile in the past and she required a fecal transplant. Since she is being given IV antibiotics, I am starting her on Flagyl 500 mg by mouth every eight hours. 4. History of Goodpasture's disease. The patient was empirically given three doses of Solu-Medrol 500 mg IV daily. Autoimmune workup is pending. The patient is currently on prednisone 35 mg by mouth twice a day. Dose will be tapered once the autoimmune serology comes back.
--- NOTE | 2016-12-27 17:48 | REP ---
CT GUIDED LEFT UPPER LOBE LUNG BIOPSY: The procedure was performed under the direct supervision of Dr. Aguilar. The patient has a history of a 6.6 cm mass in the left upper lobe seen on a previous CAT scan performed on 12/22/2016. The risks and benefits of the procedure were explained to the patient and informed consent was obtained. The left upper lobe lung mass was localized using CT guidance. The skin was prepped and draped in a sterile fashion. 1% Xylocaine was used as a local anesthetic. Using CT guidance a 19/20-gauge coaxial needle biopsy system was inserted and then advanced into the mass. 5 core biopsy samples were obtained and sent to the lab. The patient tolerated the procedure well and there were no immediate complications. Reviewed by LENORE Neal 12/28/2016 08:22 AEdited and Signed by Karan Aguilar MD 12/28/2016 04:53 P
--- NOTE | 2016-12-27 19:14 | REP ---
CHEST, PA: PA view of the chest is performed. Comparison 12/25/2016. Left upper lobe opacity is again seen. There is no pneumothorax. Cardiomediastinal silhouette is unchanged. IMPRESSION: No pneumothorax, status-post left upper lobe biopsy. Signed by Karan Aguilar MD 12/28/2016 04:40 P
[2016-12-27] MEDS: CYANOCOBALAMIN 500 MCG TAB PO SCH (21:20)
[2016-12-27] MEDS: LOSARTAN 50 MG TAB PO SCH (21:22)
[2016-12-27] MEDS: PRAVASTATIN 20 MG TAB PO SCH (21:22)
[2016-12-27] MEDS: FLUTICASONE PROP 0.05% NASAL SPRAY 16 GM (FLONASE) SCH (21:23)
[2016-12-27] MEDS: METOPROLOL TART 50 MG TAB PO SCH (21:24)
[2016-12-27] MEDS: CETIRIZINE (ZyrTEC) 10 MG TAB PO SCH (21:25)
[2016-12-27 22:00] VITALS: BP 142/69
[2016-12-28] MEDS: cefTRIAXone SOD 1 GM in D5W MINI-BAG PLUS 50 ML IV SCH ×2 (02:23→14:30)
[2016-12-28] MEDS: metroNIDAZOLE (FLAGYL) 500 MG TAB PO SCH ×3 (05:39→21:48)
[2016-12-28] MEDS: LEVOTHYROXINE 0.125 MG TAB (125 MCG) PO SCH (05:39)
[2016-12-28] MEDS: SLF 3 ML SYR IV SCH ×3 (05:40→21:50)
[2016-12-28 06:00] VITALS: BP 168/80
[2016-12-28] MEDS: HEPARIN SOD (PORCINE) 5000 UNITS/ML VIAL SQ SCH ×3 (06:00→21:47)
[2016-12-28 06:22] LABS: BASO % 0.2 % (0.0-1.0); EOS # 0.1 K/mm3 (0.0-0.50); EOS % 0.9 % (0.0-3.0); LARGE UNSTAINED CELL # 0.1 K/mm3 (0.0-0.4); LARGE UNSTAINED CELL % 0.6 % (0.0-4.0); LYMPH # 0.7 K/mm3 (1.5-4.5); MEAN CORPUSCULAR HEMOGLOBIN 29.4 pg (27.0-33.0); MEAN CORPUSCULAR HGB CONC 31.2 g/dl (32.0-36.5); MONO # 0.4 K/mm3 (0.0-0.8); MONO % 3.2 % (0.0-5.0); NEUTROPHILS % 89.1 % (36.0-66.0); PLATELET COUNT, AUTOMATED 280 k/mm3 (150-450); RED CELL DISTRIBUTION WIDTH 17.1 % (11.5-14.5); WHITE BLOOD COUNT 11.2 K/mm3 (4.0-10.0)
[2016-12-28 06:39] LABS: ALBUMIN 2.7 GM/DL (3.2-5.2); CALCIUM LEVEL 8.9 MG/DL (8.8-10.2); CREATININE FOR GFR 5.37 MG/DL (0.55-1.02); GLOMERULAR FILTRATION RATE 8.5 (>45); PHOSPHORUS LEVEL 3.2 MG/DL (2.5-4.9); POTASSIUM SERUM 4.3 MEQ/L (3.5-5.1)
[2016-12-28] MEDS: ALBUTEROL SULFATE 2.5 MG/0.5 ML INH NEB SOLN INH SCH ×4 (07:01→19:49)
[2016-12-28] MEDS: FLUTICASONE HFA 110 MCG 12 GM INHALER (FLOVENT) INH SCH ×2 (07:01→19:49)
[2016-12-28] MEDS: (RENVELA) SEVELAMER **CARBONate** 800 MG TAB PO SCH ×2 (08:05→17:05)
[2016-12-28] MEDS: PANTOPRAZOLE 40MG TAB (PROTONIX) PO SCH ×2 (08:05→21:47)
[2016-12-28] MEDS: NEOSPORIN TOP OINT 15GM TOP SCH ×2 (08:05→21:53)
[2016-12-28] MEDS: METOPROLOL TART 50 MG TAB PO SCH ×2 (08:05→21:49)
[2016-12-28] MEDS: ACETAMINOPHEN TAB 650MG DOSE (2X325MG) PO PRN ×2 (08:05→17:04)
[2016-12-28] MEDS: DICYCLOMINE 10 MG CAP PO SCH ×4 (08:05→21:52)
[2016-12-28] MEDS: LACTOBACILLUS ACIDOPHILUS CAP (BACID) PO SCH ×2 (08:05→21:47)
[2016-12-28] MEDS: guaiFENesin ER 600 MG TAB PO SCH ×2 (08:05→21:49)
[2016-12-28] MEDS: OMEGA-3 1050MG CAPSULE PO SCH (08:05)
[2016-12-28] MEDS: predniSONE 10 MG TAB PO SCH (08:06)
--- NOTE | 2016-12-28 12:03 | IPNPDOC ---
Subjective Date Seen The patient was seen on 12/28/16. Subjective Chief Complaint/HPI Pt continues to feel better. She has less SOB, less cough. She does have loose , non bloody stools. Denies abd pain. Some bloating, denies cramping. General: Denies: Fatigue Constitutional: Denies: Chills, Fever Pulmonary: Reports: Cough, Denies: Dyspnea Cardiovascular: Denies: Chest Pain, Palpitations Gastrointestinal: Reports: Diarrhea, Denies: Nausea, Vomiting Neurological: Denies: Weakness Psych: Reports: Mood Normal Objective Physical Examination General Exam: Positive: Alert, No Acute Distress Eye Exam: Positive: PERRLA, Negative: Sclera icteric ENT Exam: Positive: Atraumatic, Mucous membr. moist/pink, Pharynx Normal Neck Exam: Positive: Supple, Negative: JVD Chest Exam: Positive: Diminished, Wheezing (scattered) Heart Exam: Positive: Normal S1, Normal S2, Other (distant heart sounds), Rate Normal, Regular Rhythm, Negative: Murmurs, Rubs Abdomen Exam: Positive: Normal bowel sounds, Soft, Negative: Tenderness Extremity Exam: Negative: Edema Skin Exam: Positive: Nl turgor and temperature, Negative: Breakdown, Rash Assessment /Plan Problems (1) Pneumonia Status: Acute Problem Text: 12/28 - bronchoscopy suggested PN - started on IV Rocephin, will continue for 1-2 more days, if pt contnues to improve, remains afebrile, and nl WBC, will change to po Cefdinir per Pulms recommendations, although Augmentin or Clinda is preferred will avoid d/t pts h/o C diff and current GI distress. 12/27/2016: On prednisone per Pulmolology 12/26 Zosyn/Vanco D5 - resp status stable. Afebrile, WBC normalized-case d/w Dr. Morales-doubt PN; therefore, stopped abx (jayshree given C diff h/o) 12/25 Zosyn/Vanco D4 - pu 12/24 - Zosyn/Vanco D3 for possible necrotizing pneumonia based on ct findings. Blood cx no growth after 24 hours. Afebrile. Discussed with nephrology. Will consult pulmonary. D2 abx- vanco/zosyn for possible necrotizing pneumonia based on ct findings. bcx pending. fever curve improving. continues to require O2. -acappella 3/ PPD placed (2) Diarrhea Status: Acute Problem Text: GI panel neg. Given Imodium prn. Back on IV abx due to pneumonia, started on Flagyl d/t h/o C diff (3) Lung mass Status: Acute Problem Text: 12/27/2016: Pulmonology following. bx pending. 12/26 - Await bronch results 12/25 - Pulm plans Bronch today. suspicious for malignancy. 12/24 Dr. Morales consulted-plan bronch for AM 12/22/16 CT CAP 66 mm necrotic mass-favor tumor vs infectious +/- recurrent Goodpasture's, B iliac crest sclerotic lesions (CRP 29, ESR 129!) 12/23/16 Nephro started SM She has significant risk for malignancy considering smoking hx/chronic immune suppression (4) COPD (chronic obstructive pulmonary disease) Status: Acute Response to Treatment: Stable Problem Text: Stable at this point (5) Chronic anemia Status: Chronic Problem Text: Partially due to CKD, but favor also acute blood loss anemia-? 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 Hgb 9.9 today. 12/23 - Her hgb today is 7.7, which is a drop from yesterday. 12/23 - H pylori Ab 12/23 PT/PTT 14/47 12/23 HO - (6) Goodpasture syndrome Status: Chronic Problem Text: Nephrology following. MED, ANCA, Anti-GBM ab ordered - all Neg. . Off cyclophosphamide, on prednisone 20 mg PO BID (7) Hypothyroid Status: Chronic Response to Treatment: Stable Problem Text: 09/2016 TSH 0.3 (8) End stage renal disease on dialysis Status: Chronic Problem Text: Due to Goodpasture's. Dialysis MWF, followed by nephrology. -off cyclophosphamide -prednisone 20 mg BID (9) Diastolic dysfunction Status: Chronic Problem Text: Compensated on exam (10) Hyperlipidemia Status: Chronic Problem Text: On statin, fish oil (11) Hypertension Status: Chronic Problem Text: Controlled on home regimen- losartan/metoprolol Plan/VTE VTE Prophylaxis Ordered?: Yes (heparin) Plan Family Medicine Attending Note: Patient seen and examined early this morning; I discussed her case with Virgil Love, and I agree with her note. I d/w Dr. Morales as well - repeat CT-guided lung biopsies are also consistent with pneumonia, so she recommends treating as a lung abscess with a prolonged course of antibiotics (see notes above for planned regimen). Patient is feeling fairly well today. Continue dialysis per nephro. (KES) VS, I&O, 24H, Fishbone Vital Signs/I&O Vital Signs Date Time Temp Pulse Resp B/P Pulse Ox O2 Delivery O2 Flow Rate FiO2 12/28/16 10:59 Nasal Cannula 2.0 12/28/16 08:05 91 168/80 12/28/16 06:00 97.1 20 95 I&O- Last 24 Hours up to 6 AM 12/28/16 06:00 Intake Total 580 ml Output Total 2500 ml Balance -1920 ml Laboratory Data 24H LABS Laboratory Tests 2 12/28/16 05:19: Albumin 2.7L, Blood Urea Nitrogen 33H, Creatinine 5.37H, Sodium Level 139, Potassium Level 4.3, Chloride Level 99, Carbon Dioxide Level 27, Anion Gap 13, White Blood Count 11.2H, Red Blood Count 3.75L, Hemoglobin 11.0L, Hematocrit 35.3L, Mean Corpuscular Volume 94.0, Mean Corpuscular Hemoglobin 29.4, Mean Corpuscular Hemoglobin Concent 31.2L, Red Cell Distribution Width 17.1H, Platelet Count 280, Neutrophils (%) (Auto) 89.1H, Lymphocytes (%) (Auto) 6.0L, Monocytes (%) (Auto) 3.2, Eosinophils (%) (Auto) 0.9, Basophils (%) (Auto) 0.2, Neutrophils # (Auto) 10.0H, Lymphocytes # (Auto) 0.7L, Monocytes # (Auto) 0.4, Eosinophils # (Auto) 0.1, Basophils # (Auto) 0.0, Calcium Level 8.9, Glomerular Filtration Rate 8.5L, Large Unclassified Cells # 0.1, Large Unclassified Cells % 0.6, Phosphorus Level 3.2 CBC/BMP Laboratory Tests 12/28/16 05:19 Anion Gap 13, Red Blood Count 3.75 L, Mean Corpuscular Volume 94.0, Mean Corpuscular Hemoglobin 29.4, Mean Corpuscular Hemoglobin Concent 31.2 L, Red Cell Distribution Width 17.1 H, Neutrophils (%) (Auto) 89.1 H, Lymphocytes (%) ( Auto) 6.0 L, Monocytes (%) (Auto) 3.2, Eosinophils (%) (Auto) 0.9, Basophils (% ) (Auto) 0.2, Neutrophils # (Auto) 10.0 H, Lymphocytes # (Auto) 0.7 L, Monocytes # (Auto) 0.4, Eosinophils # (Auto) 0.1, Basophils # (Auto) 0.0 Microbiology Microbiology 12/22/16 Blood Culture - Final, Complete NO GROWTH AFTER 5 DAYS 12/22/16 Blood Culture - Final, Complete NO GROWTH AFTER 5 DAYS 12/26/16 Gastrointestinal Tract Panel (PCR) - Final, Complete 12/25/16 Stool Occult Blood (MOISÉS) - Final, Complete 12/25/16 Acid Fast Stain - Final, Resulted 12/25/16 Mycobacterial Culture, Resulted Pending 12/25/16 Fungal Smear, Resulted Pending 12/25/16 Fungal Culture, Resulted Pending 12/25/16 Gram Stain - Final, Complete 12/25/16 Bronchoalveolar Lavage Culture - Final, Complete VIRGIL LOVE PA-C Dec 28, 2016 12:03 ALEJANDRO CAMP MD Dec 28, 2016 13:12
[2016-12-28] MEDS: TIAGABINE 4 MG PO SCH (12:41)
[2016-12-28 14:00] VITALS: BP 155/56
[2016-12-28] MEDS: CHECK TO SEE IF PATIENT IS RECEIVING DIALYSIS TODAY AND REFER TO THE VANCOMYCIN ORDER XX SCH (15:10)
--- NOTE | 2016-12-28 18:05 | IPN ---
DATE: 12/28/2016 SUBJECTIVE: This is a 66-year-old female who is seen and examined on medical surgical floor. She underwent CT-guided biopsy yesterday which reportedly came back positive for organizing pneumonia. She had hemodialysis yesterday with 2.5 liters of fluid removed, and tolerated that well. Unfortunately, she continues to report loose bowel movements with four episodes since last night. Her Clostridium (C.) difficile culture came back negative yesterday. REVIEW OF SYSTEMS: Denies chills although she did feel warm this morning. Had some night sweats last night. No rigors, headache, nausea, vomiting, chest pain, shortness of breath. Cough is still dry. Has been using her Acapella. No abdominal pain. OBJECTIVE: VITAL SIGNS: Blood pressure 168/80, heart rate 91, temperature 97.1, pulse oximetry 95% on two liters nasal cannula. Intake in the last 24 hours: 890 and 2500. Weight is 70 kg. PHYSICAL EXAM: GENERAL: The patient is lying in bed at approximately 45-degree angle. Comfortable. No acute distress. She is alert, awake, oriented times three, pleasant, cooperative. Pale appearing. HEENT: Normocephalic, atraumatic. Extraocular movement intact. Moist oral mucosa. Dentures in place. NECK: Supple. Trachea midline. No lymphadenopathy palpated. PULMONARY: Symmetric chest rise with no accessory muscle use. She does have rhonchi bilateral lung bases and coughs throughout her physical exam, but no production. CARDIOVASCULAR: Regular rate and rhythm. S1, S2 normal. There is a systolic murmur in the right second intercostal border without radiating to the carotids. ABDOMEN: Soft, nondistended. It is mildly tender to palpation bilateral lower quadrants. No guarding, no rebound, no peritoneal sign. EXTREMITIES: No pedal edema. Pedal pulses present bilaterally. Her right arteriovenous (AV) fistula is on her right upper extremity with dilatation distally. NEUROLOGIC: No focal deficits. PSYCHIATRIC: Pleasant, cooperative. Normal affect. LABORATORY DATA: WBC 11.2, increased from yesterday 8.7, hemoglobin 11, hematocrit 35.3, platelets 280. Neutrophils 89.1. Sodium 139, potassium 4.3, chloride 99, carbon dioxide 27, BUN 33, creatinine 5.37, glucose 182, calcium 8.9, phosphorus 3.2, albumin 2.7. MICROBIOLOGY: Stool occult blood was negative. GI panel negative for C. Difficile. Bronchioalveolar lavage positive for few WBC, moderate epithelial cells, and also few gram-positive cocci. Pathology showed lung parenchyma showing acute inflammation and organizing pneumonia. IMAGING: Chest x-ray performed yesterday post biopsy, showed no pneumothorax. Preliminary report of her antibodies were negative for ANCA, MED, and GBM. MEDICATIONS: No new medication changes yesterday except for Rocephin and oral Flagyl added. IMPRESSION AND PLAN: Ms. Jim is a pleasant 66-year-old female with past medical history of end-stage renal disease secondary to Goodpasture's disease, admitted for fever, chills, rigor. She was found to have abnormal CT, has had multiple biopsies done recently, confirming for organizing pneumonia. PLAN: 1. End-stage renal disease on hemodialysis. Underwent hemodialysis yesterday with 2.5 liters removed. We will plan for dialysis again tomorrow morning. 2. Organizing pneumonia. She previously had concerning finding on CT and subsequently underwent two biopsies with preliminary report negative for malignancy, only of acute pneumonia. Currently is on Rocephin. Previously was on Zosyn and vancomycin. Will defer to primary team and pulmonology for antibiotic choice. 3. Hypertension. This is likely secondary to high-dose steroids. We have decreased her prednisone. Hopefully, blood pressure will improve with adjustments. We will continue Lopressor and Losartan. 4. History of Good pasture's disease. She was initially empirically treated with pulsed dose steroids due to her abnormal finding and presentation. Preliminary report has come back negative; therefore we have tapered down her steroids with a starting dose of 40 mg tomorrow. Preliminary report is in the patient's chart. 5. Diarrhea. Clostridium (C.) difficile sent two days ago was negative for toxin. Unfortunately, she continues to report episodes of loose bowel movement. If persistent or worsening, recommend repeating laboratory. In the meantime, continue Bacid. 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 She has an appointment with vascular surgeon in the end of this month for routine follow up. However, we will try and arrange to see if she can be seen earlier. She continues to receive hemodialysis through a site that is more proximal to her pseudoaneurysm. Case discussed with Dr. Morales and primary team. My preceptor for this patient encounter was Dr. Solano. The preceptor was physically present in the building during the encounter and was fully available as needed. All aspects of the patient interview, examination, medical decision making process, and medical care plan development were reviewed and approved by the preceptor. The preceptor is aware and concurs with the plan as stated in the body of this note and will attest to such by his/her co-signature. SOL
[2016-12-28 19:50] VITALS: O2SAT 98
[2016-12-28 20:20] VITALS: BP 132/65
[2016-12-28] MEDS: PRAVASTATIN 20 MG TAB PO SCH (21:48)
[2016-12-28] MEDS: CYANOCOBALAMIN 500 MCG TAB PO SCH (21:48)
[2016-12-28] MEDS: LOSARTAN 50 MG TAB PO SCH (21:49)
[2016-12-28] MEDS: FLUTICASONE PROP 0.05% NASAL SPRAY 16 GM (FLONASE) SCH (21:49)
[2016-12-28] MEDS: CETIRIZINE (ZyrTEC) 10 MG TAB PO SCH (21:49)
[2016-12-29] MEDS: cefTRIAXone SOD 1 GM in D5W MINI-BAG PLUS 50 ML IV SCH ×2 (02:36→17:51)
[2016-12-29] MEDS: ACETAMINOPHEN TAB 650MG DOSE (2X325MG) PO PRN ×3 (02:39→16:33)
[2016-12-29] MEDS: ONDANSETRON 4MG/2ML VIAL (J2405) IV PRN ×3 (03:30→16:43)
[2016-12-29 05:50] VITALS: BP 171/84
[2016-12-29] MEDS: HEPARIN SOD (PORCINE) 5000 UNITS/ML VIAL SQ SCH ×3 (06:26→21:36)
[2016-12-29] MEDS: OMEGA-3 1050MG CAPSULE PO SCH (06:26)
[2016-12-29] MEDS: guaiFENesin ER 600 MG TAB PO SCH ×2 (06:26→21:38)
[2016-12-29] MEDS: SLF 3 ML SYR IV SCH ×3 (06:26→21:39)
[2016-12-29] MEDS: metroNIDAZOLE (FLAGYL) 500 MG TAB PO SCH (06:27)
[2016-12-29] MEDS: LACTOBACILLUS ACIDOPHILUS CAP (BACID) PO SCH ×2 (06:27→21:36)
[2016-12-29] MEDS: LEVOTHYROXINE 0.125 MG TAB (125 MCG) PO SCH (06:27)
[2016-12-29] MEDS: PANTOPRAZOLE 40MG TAB (PROTONIX) PO SCH ×2 (06:27→21:36)
[2016-12-29] MEDS: (RENVELA) SEVELAMER **CARBONate** 800 MG TAB PO SCH (06:27)
[2016-12-29] MEDS: DICYCLOMINE 10 MG CAP PO SCH ×4 (06:27→21:36)
[2016-12-29] MEDS: NEOSPORIN TOP OINT 15GM TOP SCH ×2 (06:28→21:36)
[2016-12-29 06:45] LABS: ALBUMIN 2.4 GM/DL (3.2-5.2); CALCIUM LEVEL 8.2 MG/DL (8.8-10.2); CREATININE FOR GFR 6.98 MG/DL (0.55-1.02); GLOMERULAR FILTRATION RATE 6.3 (>45); PHOSPHORUS LEVEL 2.1 MG/DL (2.5-4.9); POTASSIUM SERUM 3.6 MEQ/L (3.5-5.1)
[2016-12-29 06:47] LABS: MEAN CORPUSCULAR HEMOGLOBIN 28.3 pg (27.0-33.0); MEAN CORPUSCULAR HGB CONC 30.5 g/dl (32.0-36.5); MEAN CORPUSCULAR VOLUME 92.8 fl (80.0-96.0); PLATELET COUNT, AUTOMATED 228 k/mm3 (150-450)
[2016-12-29] MEDS ORDERED: LOPERAMIDE 2 MG CAP PO ONE (07:30)
[2016-12-29] MEDS: ALBUTEROL SULFATE 2.5 MG/0.5 ML INH NEB SOLN INH SCH ×4 (08:00→19:18)
[2016-12-29 08:12] LABS: ANISOCYTOSIS 1+; EOSINOPHILS 2 % (0-5); HYPOCHROMASIA 2+; NUCLEATED RED BLOOD CELL 2 % (0-0)
[2016-12-29] MEDS: FLUTICASONE HFA 110 MCG 12 GM INHALER (FLOVENT) INH SCH ×2 (08:45→19:18)
[2016-12-29] MEDS ORDERED: HEPARIN 1,000 UNITS/ML 10ML VIAL (FOR RADIOLOGY& DIALYSIS ONLY) IV ONE (12:45)
--- NOTE | 2016-12-29 14:35 | IPNPDOC ---
Subjective Date Seen The patient was seen on 12/29/16. Subjective Chief Complaint/HPI The patient is a 66-year-old female admitted with a reason for visit of Pneumonia. Events since last encounter Patient states she was nauseated this morning; she was given zofran and nausea resolved. After arriving in dialysis, she had a temp of 99.4F at 11:29 am. At around 12:30 pm she had chills after starting dialysis. At 1:45 pm, temp was rechecked and was 99.0. Other than nausea and chills, she feels well and has no complaints. General: Reports: Chills, Denies: Fatigue, Night Sweats Constitutional: Denies: Fever ENT: Denies: Head Aches Skin: Denies: Rash Pulmonary: Reports: Cough, Denies: Dyspnea Cardiovascular: Denies: Chest Pain, Palpitations Gastrointestinal: Reports: Nausea, Denies: Abdominal Pain, Vomiting Genitourinary: Denies: Dysuria Psych: Reports: Mood Normal Objective Physical Examination General Exam: Positive: Alert, No Acute Distress Eye Exam: Positive: PERRLA, Negative: Sclera icteric ENT Exam: Positive: Atraumatic, Mucous membr. moist/pink Neck Exam: Positive: Supple, Negative: JVD Chest Exam: Positive: Diminished (throughout), Negative: Rhonchi, Wheezing Heart Exam: Positive: Normal S1, Normal S2, Other (distant heart sounds), Rate Normal, Regular Rhythm, Negative: Murmurs, Rubs Abdomen Exam: Positive: Normal bowel sounds, Soft, Negative: Tenderness Extremity Exam: Negative: Edema Skin Exam: Positive: Nl turgor and temperature, Negative: Breakdown, Rash Assessment /Plan Problems (1) Pneumonia Status: Acute Problem Text: 12/29 - Patient had chills after starting dialysis this morning, but no fevers. Continue IV rocephin until tomorrow and if no fevers overnight, consider transitioning to PO Cefdinir per Pulm's recommendations as below. 12/28 - bronchoscopy suggested PN - started on IV Rocephin, will continue for 1-2 more days, if pt contnues to improve, remains afebrile, and nl WBC, will change to po Cefdinir per Pulms recommendations, although Augmentin or Clinda is preferred will avoid d/t pts h/o C diff and current GI distress. 12/27/2016: On prednisone per Pulmolology 12/26 Zosyn/Vanco D5 - resp status stable. Afebrile, WBC normalized-case d/w Dr. Morales-doubt PN; therefore, stopped abx (jayshree given C diff h/o) 12/25 Zosyn/Vanco D4 - pu 12/24 - Zosyn/Vanco D3 for possible necrotizing pneumonia based on ct findings. Blood cx no growth after 24 hours. Afebrile. Discussed with nephrology. Will consult pulmonary. D2 abx- vanco/zosyn for possible necrotizing pneumonia based on ct findings. bcx pending. fever curve improving. continues to require O2. -acappella 12/23 PPD placed (2) Diarrhea Status: Acute Problem Text: GI panel neg. Given Imodium prn. Back on IV abx due to pneumonia, started on Flagyl d/t h/o C diff. Flagyl may be contributing to patient's nausea. 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 12/27/2016: Pulmonology following. bx pending. 12/26 - Await bronch results 12/25 - Pulm plans Bronch today. suspicious for malignancy. 12/24 Dr. Morales consulted-plan bronch for AM 12/22/16 CT CAP 66 mm necrotic mass-favor tumor vs infectious +/- recurrent Goodpasture's, B iliac crest sclerotic lesions (CRP 29, ESR 129!) 12/23/16 Nephro started SM She has significant risk for malignancy considering smoking hx/chronic immune suppression (4) COPD (chronic obstructive pulmonary disease) Status: Acute Response to Treatment: Stable Problem Text: Stable at this point (5) Chronic anemia Status: Chronic Problem Text: 12/29 - H/H have been stable for several days. Partially due to CKD, but favor also acute blood loss anemia-? 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 Hgb 9.9 today. 12/23 - Her hgb today is 7.7, which is a drop from yesterday. 12/23 - H pylori Ab 12/23 PT/PTT 14/47 12/23 HO - (6) Goodpasture syndrome Status: Chronic Problem Text: Nephrology following. MED, ANCA, Anti-GBM ab ordered - all Neg. . Off cyclophosphamide, on prednisone 20 mg PO BID (7) Hypothyroid Status: Chronic Response to Treatment: Stable Problem Text: 09/2016 TSH 0.3 (8) End stage renal disease on dialysis Status: Chronic Problem Text: Due to Goodpasture's. Dialysis MWF, followed by nephrology. -off cyclophosphamide -prednisone 20 mg BID (9) Diastolic dysfunction Status: Chronic Problem Text: Compensated on exam (10) Hyperlipidemia Status: Chronic Problem Text: On statin, fish oil (11) Hypertension Status: Chronic Problem Text: Controlled on home regimen- losartan/metoprolol; intermittently elevated, especially prior to dialysis which is expected. Plan/VTE VTE Prophylaxis Ordered?: Yes (heparin) VS, I&O, 24H, Fishbone Vital Signs/I&O Vital Signs Date Time Temp Pulse Resp B/P Pulse Ox O2 Delivery O2 Flow Rate FiO2 12/29/16 09:00 Room Air 12/29/16 05:50 97.2 80 17 171/84 98 2.0 I&O- Last 24 Hours up to 6 AM 12/29/16 06:00 Intake Total 1250 ml Output Total 0 ml Balance 1250 ml Laboratory Data 24H LABS Laboratory Tests 2 12/29/16 05:04: Albumin 2.4L, Blood Urea Nitrogen 50#H, Creatinine 6.98H, Sodium Level 141, Potassium Level 3.6, Chloride Level 103, Carbon Dioxide Level 23, Anion Gap 15, Anisocytosis 1+, White Blood Count 8.0, Red Blood Count 3.53L, Hemoglobin 10.0L , Hematocrit 32.8L, Mean Corpuscular Volume 92.8, Mean Corpuscular Hemoglobin 28.3, Mean Corpuscular Hemoglobin Concent 30.5L, Red Cell Distribution Width 17.0H, Platelet Count 228, Neutrophils (%) (Auto) , Lymphocytes (%) (Auto) , Monocytes (%) (Auto) , Eosinophils (%) (Auto) , Basophils (%) (Auto) , Neutrophils # (Auto) , Lymphocytes # (Auto) , Monocytes # (Auto) , Eosinophils # (Auto) , Basophils # (Auto) , Calcium Level 8.2L, Eosinophils (Manual) 2, Glomerular Filtration Rate 6.3L, Hypochromasia 2+, Large Unclassified Cells # , Large Unclassified Cells % , Lymphocytes (Manual) 4L, Metamyelocytes 1H, Monocytes (Manual) 10H, Neutrophils 83H, Nucleated Red Blood Cells 2H, Phosphorus Level 2.1#L, Platelet Estimate NORMAL CBC/BMP Laboratory Tests 12/29/16 05:04 Anion Gap 15, Red Blood Count 3.53 L, Mean Corpuscular Volume 92.8, Mean Corpuscular Hemoglobin 28.3, Mean Corpuscular Hemoglobin Concent 30.5 L, Red Cell Distribution Width 17.0 H, Neutrophils (%) (Auto) , Lymphocytes (%) (Auto) , Monocytes (%) (Auto) , Eosinophils (%) (Auto) , Basophils (%) (Auto) , Neutrophils # (Auto) , Lymphocytes # (Auto) , Monocytes # (Auto) , Eosinophils # (Auto) , Basophils # (Auto) Microbiology Microbiology 12/22/16 Blood Culture - Final, Complete NO GROWTH AFTER 5 DAYS 12/22/16 Blood Culture - Final, Complete NO GROWTH AFTER 5 DAYS 12/26/16 Gastrointestinal Tract Panel (PCR) - Final, Complete 12/25/16 Stool Occult Blood (MOISÉS) - Final, Complete 12/25/16 Acid Fast Stain - Final, Resulted 12/25/16 Mycobacterial Culture, Resulted Pending 12/25/16 Fungal Smear, Resulted Pending 12/25/16 Fungal Culture, Resulted Pending 12/25/16 Gram Stain - Final, Complete 12/25/16 Bronchoalveolar Lavage Culture - Final, Complete ALEJANDRO CAMP MD Dec 29, 2016 14:35
[2016-12-29] MEDS: CHECK TO SEE IF PATIENT IS RECEIVING DIALYSIS TODAY AND REFER TO THE VANCOMYCIN ORDER XX SCH (14:55)
[2016-12-29] MEDS: metroNIDAZOLE 500 MG in APPROPRIATE DILUENT 1 EA IV SCH ×2 (16:32→21:35)
[2016-12-29] MEDS: TIAGABINE 4 MG PO SCH (16:33)
[2016-12-29] MEDS: predniSONE 20 MG TAB PO SCH (16:33)
[2016-12-29] MEDS: BENZONATATE 100 MG CAP PO PRN (17:20)
--- NOTE | 2016-12-29 18:04 | IPN ---
DATE: 12/29/2016 SUBJECTIVE: Patient was seen and examined at the bedside today in the morning during hemodialysis procedure. Patient is tolerating the hemodialysis procedure well. Patient reports that she has been nauseated for the last 2 days. She still reports some loose bowel movements. She had four bowel movements yesterday. REVIEW OF SYSTEMS: Patient denies any fevers, chills, rigors, headache, nausea, vomiting. She denies any chest pain. She does report some cough with no phlegm. She denies any vomiting, but she is nauseated, and she has been having loose bowel movements. Rest of the review of systems is negative. OBJECTIVE: VITAL SIGNS: Temperature is 97.2 degrees Fahrenheit, blood pressure is 171/84, pulse is 80, respiratory rate of 17, saturating 98% on nasal cannula at 2 liters per minute. Intake and output: Urine output is not recorded. Weight in the bed scale is 70 kg. PHYSICAL EXAMINATION: GENERAL: Patient is awake, alert, oriented times three, lying in bed getting hemodialysis. No apparent distress. HEAD AND NECK: Extraocular muscles intact. Pupils equally round and reactive to light. Mucous membranes are moist. Neck is supple. There is no jugular venous distention (JVD). CARDIOVASCULAR: S1, S2, regular rate. No murmur, rub, or gallop. RESPIRATORY: Decreased breath sounds at the bases. Mild expiratory rhonchi bilaterally at the bases. ABDOMEN: Soft. Positive bowel sounds, nondistended. No ascites. No organomegaly. EXTREMITIES: No clubbing or cyanosis. Pulses are 2+. No edema of the bilateral lower extremities. Arteriovenous (AV) access: Patient has a right upper arm AV fistula with positive thrill and bruit, and distal part of the fistula has a small secular dilatation. CENTRAL NERVOUS SYSTEM: No focal neurological deficit. Power is 5/5 in all extremities. LABORATORY REVIEW: CBC showed a WBC of 8, hemoglobin is 10, platelets are 228. BMP showed sodium 141, potassium 3.6, chloride 103, bicarbonate 23, BUN is 50, creatinine is 6.9. Phosphorus is 2.1. Albumin is 2.4. MED is negative. P-ANCA and atypical ANCA are negative. Anti-GBM antibody is negative. CT-guided biopsy of the chest done on 12/27/2016 showed acute inflammation and necrotic neutrophil debris. No malignancy was identified. CURRENT MEDICATIONS: Patient's medications are all reviewed by me. Her Flagyl was changed to 500 mg intravenous (IV) every 8 hours. By mouth Flagyl was stopped. Her Renvela was stopped by me today. Patient continues to be at a tapering dose of prednisone. 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 She was found to have abnormal CT scan with a possible mass, but bronchoscopy and CT-guided biopsy have been negative so far. Patient is being treated for organizing pneumonia. PLAN: 1. End-stage renal disease, on hemodialysis. Patient's regular hemodialysis days are Sunday, Sunday, Sunday. She is being dialyzed according to her regular schedule. Will try to do an ultrafiltration of 2.5 liters as tolerated by her blood pressure. 2. Organizing pneumonia. Patient has been restarted on Rocephin 1 gram IV every 12 hours. Duration of antibiotics is as per primary team and pulmonary critical care recommendations. 3. Diarrhea. Patient has history of Clostridium (C) difficile in the past. C. difficile done this time is negative. She has been empirically started on Flagyl; however, she was having nausea, and Flagyl has been changed to 500 mg IV every 8 hours. 4. Hypophosphatemia. Patient is having diarrhea and decreased oral intake. She is on Renvela. I have stopped the Renvela. Hypophosphatemia will hopefully improve with oral intake. 5. History of Goodpasture disease. Patient was initially empirically treated with pulse dose of steroids; however, anti-GBM antibody came back negative. Steroids are being tapered down. Prednisone will be tapered to her daily dose of 5 mg by mouth daily. 6. Hypertension. Blood pressure is otherwise within the acceptable range, apart from high reading today morning. Patient will get hemodialysis and ultrafiltration as well, which will help lower the blood pressure. Continue current dose of losartan 50 mg by mouth daily and metoprolol 50 mg by mouth daily as well. Patient gets additional dose of metoprolol 50 mg on Sunday, , Sunday, and Sunday, which are her non-dialysis days. 7. AV access. Patient has a small secular dilatation at the distal end of her AV fistula, which is concerning for pseudoaneurysm. Once the acute issues are over, patient will be evaluated by vascular surgery in [place].
[2016-12-29 20:50] VITALS: BP 143/68
[2016-12-29] MEDS: METOPROLOL TART 50 MG TAB PO SCH (21:35)
[2016-12-29] MEDS: PRAVASTATIN 20 MG TAB PO SCH (21:37)
[2016-12-29] MEDS: CYANOCOBALAMIN 500 MCG TAB PO SCH (21:37)
[2016-12-29] MEDS: CETIRIZINE (ZyrTEC) 10 MG TAB PO SCH (21:37)
[2016-12-29] MEDS: LOSARTAN 50 MG TAB PO SCH (21:38)
[2016-12-29] MEDS: FLUTICASONE PROP 0.05% NASAL SPRAY 16 GM (FLONASE) SCH (21:38)
[2016-12-30] MEDS: cefTRIAXone SOD 1 GM in D5W MINI-BAG PLUS 50 ML IV SCH ×2 (02:57→13:00)
[2016-12-30] MEDS: HEPARIN SOD (PORCINE) 5000 UNITS/ML VIAL SQ SCH ×3 (05:30→21:20)
[2016-12-30] MEDS: metroNIDAZOLE 500 MG in APPROPRIATE DILUENT 1 EA IV SCH ×3 (05:30→21:20)
[2016-12-30] MEDS: LEVOTHYROXINE 0.125 MG TAB (125 MCG) PO SCH (05:30)
[2016-12-30] MEDS: SLF 3 ML SYR IV SCH ×3 (05:31→21:52)
[2016-12-30 06:00] VITALS: BP 144/67
[2016-12-30 06:24] LABS: ALBUMIN 2.5 GM/DL (3.2-5.2); CALCIUM LEVEL 8.9 MG/DL (8.8-10.2); CREATININE FOR GFR 4.92 MG/DL (0.55-1.02); GLOMERULAR FILTRATION RATE 9.4 (>45); PHOSPHORUS LEVEL 2.6 MG/DL (2.5-4.9); POTASSIUM SERUM 4.5 MEQ/L (3.5-5.1)
[2016-12-30] MEDS: FLUTICASONE HFA 110 MCG 12 GM INHALER (FLOVENT) INH SCH ×2 (07:40→19:22)
[2016-12-30] MEDS: ALBUTEROL SULFATE 2.5 MG/0.5 ML INH NEB SOLN INH SCH ×4 (07:40→19:22)
[2016-12-30 07:47] LABS: MEAN CORPUSCULAR HEMOGLOBIN 28.9 pg (27.0-33.0); RED CELL DISTRIBUTION WIDTH 17.1 % (11.5-14.5); WHITE BLOOD COUNT 7.4 K/mm3 (4.0-10.0)
[2016-12-30 08:25] VITALS: BP 154/69
[2016-12-30] MEDS: DICYCLOMINE 10 MG CAP PO SCH ×4 (09:35→21:22)
[2016-12-30] MEDS: LACTOBACILLUS ACIDOPHILUS CAP (BACID) PO SCH ×2 (09:35→21:22)
[2016-12-30] MEDS: METOPROLOL TART 50 MG TAB PO SCH ×2 (09:36→21:27)
[2016-12-30] MEDS: predniSONE 20 MG TAB PO SCH (09:36)
[2016-12-30] MEDS: PANTOPRAZOLE 40MG TAB (PROTONIX) PO SCH ×2 (09:36→21:27)
[2016-12-30] MEDS: NEOSPORIN TOP OINT 15GM TOP SCH ×2 (09:37→21:21)
[2016-12-30] MEDS: OMEGA-3 1050MG CAPSULE PO SCH (09:37)
[2016-12-30] MEDS: guaiFENesin ER 600 MG TAB PO SCH ×2 (09:37→21:27)
--- NOTE | 2016-12-30 10:31 | IPNPDOC ---
Subjective Date Seen The patient was seen on 12/30/16. Subjective Chief Complaint/HPI pt this morning reports that she is feeling better today than she was. She states that yesterday she felt chilled, then would break out in a heavy sweat, generally just didn't feel very well. General: Denies: Fatigue Constitutional: Denies: Chills, Fever Pulmonary: Denies: Cough, Dyspnea Cardiovascular: Denies: Chest Pain, Palpitations Gastrointestinal: Denies: Diarrhea, Nausea, Vomiting Neurological: Denies: Weakness Psych: Reports: Mood Normal Objective Physical Examination General Exam: Positive: Alert, No Acute Distress Eye Exam: Positive: PERRLA, Negative: Sclera icteric ENT Exam: Positive: Atraumatic, Mucous membr. moist/pink Neck Exam: Positive: Supple, Negative: JVD Chest Exam: Positive: Diminished (throughout, course BS, some rhonchi at R base , improves with coughing), Negative: Rhonchi, Wheezing Heart Exam: Positive: Normal S1, Normal S2, Other (distant heart sounds), Rate Normal, Regular Rhythm, Negative: Murmurs, Rubs Abdomen Exam: Positive: Normal bowel sounds, Soft, Negative: Tenderness Extremity Exam: Negative: Edema Skin Exam: Positive: Nl turgor and temperature, Negative: Breakdown, Rash Assessment /Plan Problems (1) Pneumonia Status: Acute Problem Text: 12/30 - slight bump in temp yesterday, if remains afebrile for 24 h, will change to PO Cefdinir tomorrow. Pt is feeling better today. 12/29 - Patient had chills after starting dialysis this morning, but no fevers. Continue IV rocephin until tomorrow and if no fevers overnight, consider transitioning to PO Cefdinir per Pulm's recommendations as below. 12/28 - bronchoscopy suggested PN - started on IV Rocephin, will continue for 1-2 more days, if pt contnues to improve, remains afebrile, and nl WBC, will change to po Cefdinir per Pulms recommendations, although Augmentin or Clinda is preferred will avoid d/t pts h/o C diff and current GI distress. 12/27/2016: On prednisone per Pulmolology 12/26 Zosyn/Vanco D5 - resp status stable. Afebrile, WBC normalized-case d/w Dr. Morales-doubt PN; therefore, stopped abx (jayshree given C diff h/o) 12/25 Zosyn/Vanco D4 - pu 12/24 - Zosyn/Vanco D3 for possible necrotizing pneumonia based on ct findings. Blood cx no growth after 24 hours. Afebrile. Discussed with nephrology. Will consult pulmonary. D2 abx- vanco/zosyn for possible necrotizing pneumonia based on ct findings. bcx pending. fever curve improving. continues to require O2. -acappella 12/23 PPD placed (2) Diarrhea Status: Acute Problem Text: GI panel neg. Given Imodium prn. Back on IV abx due to pneumonia, started on Flagyl d/t h/o C diff. Flagyl may be contributing to patient's nausea. 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 12/27/2016: Pulmonology following. bx pending. 12/26 - Await bronch results 12/25 - Pulm plans Bronch today. suspicious for malignancy. 12/24 Dr. Morales consulted-plan bronch for AM 12/22/16 CT CAP 66 mm necrotic mass-favor tumor vs infectious +/- recurrent Goodpasture's, B iliac crest sclerotic lesions (CRP 29, ESR 129!) 12/23/16 Nephro started SM She has significant risk for malignancy considering smoking hx/chronic immune suppression (4) COPD (chronic obstructive pulmonary disease) Status: Acute Response to Treatment: Stable Problem Text: Stable at this point (5) Chronic anemia Status: Chronic Problem Text: 12/29 - H/H have been stable for several days. Partially due to CKD, but favor also acute blood loss anemia-? 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 Hgb 9.9 today. 12/23 - Her hgb today is 7.7, which is a drop from yesterday. 12/23 - H pylori Ab 12/23 PT/PTT 14/47 12/23 HO - (6) Goodpasture syndrome Status: Chronic Problem Text: Nephrology following. MED, ANCA, Anti-GBM ab ordered - all Neg. . Off cyclophosphamide, on prednisone 20 mg PO BID (7) Hypothyroid Status: Chronic Response to Treatment: Stable Problem Text: 09/2016 TSH 0.3 (8) End stage renal disease on dialysis Status: Chronic Problem Text: Due to Goodpasture's. Dialysis MWF, followed by nephrology. -off cyclophosphamide -prednisone 20 mg BID (9) Diastolic dysfunction Status: Chronic Problem Text: Compensated on exam (10) Hyperlipidemia Status: Chronic Problem Text: On statin, fish oil (11) Hypertension Status: Chronic Problem Text: Controlled on home regimen- losartan/metoprolol; intermittently elevated, especially prior to dialysis which is expected. Plan/VTE VTE Prophylaxis Ordered?: Yes (heparin) VS, I&O, 24H, Fishbone Vital Signs/I&O Vital Signs Date Time Temp Pulse Resp B/P Pulse Ox O2 Delivery O2 Flow Rate FiO2 12/30/16 09:36 94 136/65 12/30/16 08:25 96.8 14 98 Nasal Cannula 2.0 I&O- Last 24 Hours up to 6 AM 12/30/16 06:00 Intake Total 2220 ml Output Total 2500 ml Balance -280 ml Laboratory Data 24H LABS Laboratory Tests 2 12/30/16 05:38: Albumin 2.5L, Blood Urea Nitrogen 29H, Creatinine 4.92H, Sodium Level 140, Potassium Level 4.5#, Chloride Level 100, Carbon Dioxide Level 28, Anion Gap 12 , Calcium Level 8.9, Glomerular Filtration Rate 9.4L, Phosphorus Level 2.6# CBC/BMP Laboratory Tests 12/30/16 05:38 Anion Gap 12, Red Blood Count 3.63 L, Mean Corpuscular Volume 93.0, Mean Corpuscular Hemoglobin 28.9, Mean Corpuscular Hemoglobin Concent 31.0 L, Red Cell Distribution Width 17.1 H Microbiology Microbiology 12/22/16 Blood Culture - Final, Complete NO GROWTH AFTER 5 DAYS 12/22/16 Blood Culture - Final, Complete NO GROWTH AFTER 5 DAYS 12/26/16 Gastrointestinal Tract Panel (PCR) - Final, Complete 12/25/16 Stool Occult Blood (MOISÉS) - Final, Complete 12/25/16 Acid Fast Stain - Final, Resulted 12/25/16 Mycobacterial Culture, Resulted Pending 12/25/16 Fungal Smear, Resulted Pending 12/25/16 Fungal Culture, Resulted Pending 12/25/16 Gram Stain - Final, Complete 12/25/16 Bronchoalveolar Lavage Culture - Final, Complete Attending Note Attending Note Although PPD was done 12/22, will add Quantiferon VIRGIL Leggett PA-C Dec 30, 2016 10:31 Nacho Aj MD Dec 30, 2016 15:02
[2016-12-30] MEDS: TIAGABINE 4 MG PO SCH (12:57)
[2016-12-30 14:15] VITALS: BP 136/62
[2016-12-30] MEDS: CHECK TO SEE IF PATIENT IS RECEIVING DIALYSIS TODAY AND REFER TO THE VANCOMYCIN ORDER XX SCH (15:51)
[2016-12-30 20:40] VITALS: BP 135/65
[2016-12-30] MEDS: FLUTICASONE PROP 0.05% NASAL SPRAY 16 GM (FLONASE) SCH (21:21)
[2016-12-30] MEDS: LOSARTAN 50 MG TAB PO SCH (21:22)
[2016-12-30] MEDS: CYANOCOBALAMIN 500 MCG TAB PO SCH (21:22)
[2016-12-30] MEDS: PRAVASTATIN 20 MG TAB PO SCH (21:27)
[2016-12-30] MEDS: CETIRIZINE (ZyrTEC) 10 MG TAB PO SCH (21:27)
[2016-12-31] MEDS: cefTRIAXone SOD 1 GM in D5W MINI-BAG PLUS 50 ML IV SCH (01:47)
[2016-12-31 05:25] VITALS: BP 141/67
[2016-12-31] MEDS: SLF 3 ML SYR IV SCH ×3 (05:31→22:34)
[2016-12-31] MEDS: metroNIDAZOLE 500 MG in APPROPRIATE DILUENT 1 EA IV SCH ×3 (05:31→22:33)
[2016-12-31] MEDS: HEPARIN SOD (PORCINE) 5000 UNITS/ML VIAL SQ SCH ×3 (05:31→22:34)
[2016-12-31] MEDS: LEVOTHYROXINE 0.125 MG TAB (125 MCG) PO SCH (05:31)
[2016-12-31 05:34] LABS: MEAN CORPUSCULAR HEMOGLOBIN 29.7 pg (27.0-33.0); MEAN CORPUSCULAR HGB CONC 31.6 g/dl (32.0-36.5); RED CELL DISTRIBUTION WIDTH 17.7 % (11.5-14.5); WHITE BLOOD COUNT 7.6 K/mm3 (4.0-10.0)
[2016-12-31 05:55] LABS: ALBUMIN 2.4 GM/DL (3.2-5.2); CALCIUM LEVEL 8.1 MG/DL (8.8-10.2); CREATININE FOR GFR 6.61 MG/DL (0.55-1.02); GLOMERULAR FILTRATION RATE 6.7 (>45); PHOSPHORUS LEVEL 2.6 MG/DL (2.5-4.9); POTASSIUM SERUM 3.9 MEQ/L (3.5-5.1)
[2016-12-31] MEDS: ALBUTEROL SULFATE 2.5 MG/0.5 ML INH NEB SOLN INH SCH ×4 (08:00→19:30)
[2016-12-31] MEDS: FLUTICASONE HFA 110 MCG 12 GM INHALER (FLOVENT) INH SCH ×2 (08:03→19:30)
[2016-12-31] MEDS: PANTOPRAZOLE 40MG TAB (PROTONIX) PO SCH ×2 (09:12→22:33)
[2016-12-31] MEDS: OMEGA-3 1050MG CAPSULE PO SCH (09:12)
[2016-12-31] MEDS: guaiFENesin ER 600 MG TAB PO SCH ×2 (09:13→22:33)
[2016-12-31] MEDS: DICYCLOMINE 10 MG CAP PO SCH ×4 (09:13→22:32)
[2016-12-31] MEDS: LACTOBACILLUS ACIDOPHILUS CAP (BACID) PO SCH ×2 (09:13→22:32)
[2016-12-31] MEDS: predniSONE 10 MG TAB PO SCH (09:13)
[2016-12-31] MEDS: METOPROLOL TART 50 MG TAB PO SCH ×2 (09:16→22:32)
[2016-12-31] MEDS: NEOSPORIN TOP OINT 15GM TOP SCH ×2 (09:21→22:34)
[2016-12-31] MEDS: BENZONATATE 100 MG CAP PO PRN (09:21)
--- NOTE | 2016-12-31 11:19 | IPNPDOC ---
Subjective Date Seen The patient was seen on 12/31/16. Subjective Chief Complaint/HPI Pt does have some cough, although seems to be improving. She has no new concerns today. General: Reports: Fatigue Constitutional: Denies: Chills, Fever Skin: Denies: Rash Pulmonary: Reports: Cough, Dyspnea Cardiovascular: Denies: Chest Pain, Palpitations Gastrointestinal: Reports: Diarrhea, Denies: Nausea, Vomiting Neurological: Reports: Weakness Psych: Reports: Mood Normal Objective Physical Examination General Exam: Positive: Alert, No Acute Distress Eye Exam: Positive: PERRLA, Negative: Sclera icteric ENT Exam: Positive: Atraumatic, Mucous membr. moist/pink Neck Exam: Positive: Supple, Negative: JVD Chest Exam: Positive: Diminished (throughout, course BS, some rhonchi at R base , improves with coughing), Negative: Rhonchi, Wheezing Heart Exam: Positive: Normal S1, Normal S2, Other (distant heart sounds), Rate Normal, Regular Rhythm, Negative: Murmurs, Rubs Abdomen Exam: Positive: Normal bowel sounds, Soft, Negative: Tenderness Extremity Exam: Negative: Edema Skin Exam: Positive: Nl turgor and temperature, Negative: Breakdown, Rash Assessment /Plan Problems (1) Pneumonia Status: Acute Problem Text: 12/31 - Afebrile > 24 h, change from IV rocephin to PO Cefdinir, if does well, anticipate d/c home on Sunday. Will need total of 6 w IV abx with f/u with Pulm 12/30 - slight bump in temp yesterday, if remains afebrile for 24 h, will change to PO Cefdinir tomorrow. Pt is feeling better today. 12/29 - Patient had chills after starting dialysis this morning, but no fevers. Continue IV rocephin until tomorrow and if no fevers overnight, consider transitioning to PO Cefdinir per Pulm's recommendations as below. 12/28 - bronchoscopy suggested PN - started on IV Rocephin, will continue for 1-2 more days, if pt contnues to improve, remains afebrile, and nl WBC, will change to po Cefdinir per Pulms recommendations, although Augmentin or Clinda is preferred will avoid d/t pts h/o C diff and current GI distress. 12/27/2016: On prednisone per Pulmolology 12/26 Zosyn/Vanco D5 - resp status stable. Afebrile, WBC normalized-case d/w Dr. Morales-doubt PN; therefore, stopped abx (jayshree given C diff h/o) 12/25 Zosyn/Vanco D4 - pu 12/24 - Zosyn/Vanco D3 for possible necrotizing pneumonia based on ct findings. Blood cx no growth after 24 hours. Afebrile. Discussed with nephrology. Will consult pulmonary. D2 abx- vanco/zosyn for possible necrotizing pneumonia based on ct findings. bcx pending. fever curve improving. continues to require O2. -acappella 12/23 PPD placed (2) Diarrhea Status: Acute Problem Text: 12/31 - Immodium prn, Flagyl IV still d/t N/V with po, will need to change to PO for d/c. 12/26 GI panel neg. Given Imodium prn. Back on IV abx due to pneumonia, started on Flagyl d/t h/o C diff. Flagyl may be contributing to patient's nausea. 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 12/27/2016: Pulmonology following. bx pending. 12/26 - Await bronch results 12/25 - Pulm plans Bronch today. suspicious for malignancy. 12/24 Dr. Morales consulted-plan bronch for AM 12/22/16 CT CAP 66 mm necrotic mass-favor tumor vs infectious +/- recurrent Goodpasture's, B iliac crest sclerotic lesions (CRP 29, ESR 129!) 12/23/16 Nephro started SM She has significant risk for malignancy considering smoking hx/chronic immune suppression (4) COPD (chronic obstructive pulmonary disease) Status: Acute Response to Treatment: Stable Problem Text: Stable at this point (5) Chronic anemia Status: Chronic Problem Text: 12/31 - Hgb down slightly today from 10 to 9.9, monitor. 12/29 - H/H have been stable for several days. Partially due to CKD, but favor also acute blood loss anemia-? 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 Hgb 9.9 today. 12/23 - Her hgb today is 7.7, which is a drop from yesterday. 12/23 - H pylori Ab 12/23 PT/PTT 14/47 12/23 HO - (6) Goodpasture syndrome Status: Chronic Problem Text: Nephrology following. MED, ANCA, Anti-GBM ab ordered - all Neg. . Off cyclophosphamide, on prednisone 20 mg PO BID (7) Hypothyroid Status: Chronic Response to Treatment: Stable Problem Text: 09/2016 TSH 0.3 (8) End stage renal disease on dialysis Status: Chronic Problem Text: Due to Goodpasture's. Dialysis MWF, followed by nephrology. -off cyclophosphamide -prednisone 20 mg BID (9) Diastolic dysfunction Status: Chronic Problem Text: Compensated on exam (10) Hyperlipidemia Status: Chronic Problem Text: On statin, fish oil (11) Hypertension Status: Chronic Problem Text: Controlled on home regimen- losartan/metoprolol; intermittently elevated, especially prior to dialysis which is expected. Plan/VTE VTE Prophylaxis Ordered?: Yes (heparin) VS, I&O, 24H, Fishbone Vital Signs/I&O Vital Signs Date Time Temp Pulse Resp B/P Pulse Ox O2 Delivery O2 Flow Rate FiO2 12/31/16 09:16 78 160/70 12/31/16 05:25 97.3 17 97 Nasal Cannula 2.0 I&O- Last 24 Hours up to 6 AM 12/31/16 06:00 Intake Total 1540 ml Output Total 0 ml Balance 1540 ml Laboratory Data 24H LABS Laboratory Tests 2 12/31/16 05:19: Albumin 2.4L, Blood Urea Nitrogen 50#H, Creatinine 6.61H, Sodium Level 141, Potassium Level 3.9, Chloride Level 101, Carbon Dioxide Level 27, Anion Gap 13, Calcium Level 8.1L, Glomerular Filtration Rate 6.7L, Phosphorus Level 2.6 CBC/BMP Laboratory Tests 12/31/16 05:19 Anion Gap 13, Red Blood Count 3.32 L, Mean Corpuscular Volume 94.0, Mean Corpuscular Hemoglobin 29.7, Mean Corpuscular Hemoglobin Concent 31.6 L, Red Cell Distribution Width 17.7 H Microbiology Microbiology 12/22/16 Blood Culture - Final, Complete NO GROWTH AFTER 5 DAYS 12/22/16 Blood Culture - Final, Complete NO GROWTH AFTER 5 DAYS 12/26/16 Gastrointestinal Tract Panel (PCR) - Final, Complete 12/25/16 Stool Occult Blood (MOISÉS) - Final, Complete 12/25/16 Acid Fast Stain - Final, Resulted 12/25/16 Mycobacterial Culture, Resulted Pending 12/25/16 Fungal Smear, Resulted Pending 12/25/16 Fungal Culture, Resulted Pending 12/25/16 Gram Stain - Final, Complete 12/25/16 Bronchoalveolar Lavage Culture - Final, Complete VIRGIL LOVE PA-C Dec 31, 2016 11:19
[2016-12-31] MEDS: TIAGABINE 4 MG PO SCH (11:32)
[2016-12-31] MEDS: CEFDINIR 300 MG CAP (OMNICEF) PO SCH ×2 (11:32→22:32)
[2016-12-31 14:00] VITALS: BP 126/59
--- NOTE | 2016-12-31 14:25 | IPN ---
DATE: 12/30/2016 SUBJECTIVE: This is a 66-year-old female who is seen and examined at bedside. Yesterday, reported chills after hemodialysis and that one episode of chills last night, which has since resolved. Her cough is still the same as yesterday, without much production. No fevers, night sweats. Bowel movements have been less frequent. She had two bowel movements in the last 24 hours compared to four yesterday. No chest pain, shortness of breath, palpitations, nausea, vomiting. She underwent hemodialysis yesterday, with 2.5 kg removed. OBJECTIVE: VITAL SIGNS: Blood pressure 136/65, heart rate 94, temperature 96.8, respiratory rate 14, pulse oximetry 98% on 2 liters nasal cannula. Intake and output last 24 hours 2530 and 2500. Two bowel movements documented in the computer in the last 24 hours. Weight is 70 kg. GENERAL: Patient is walking from the bathroom to bed without any acute distress , comfortable appearing. Alert, awake, oriented times three. Pleasant, cooperative. HEENT: Extraocular movement intact. Pupils equal and reactive to light. Moist oral mucosa. NECK: Supple. No jugular venous distention (JVD). CARDIOVASCULAR: S1, S2 normal, regular sounding. There is systolic murmur in the second intercostal border without radiating to the carotids. No rubs or gallop. PULMONARY: Breath sounds diminished with expiratory rhonchi bilateral lung bases. Continues to cough with examination. Rhonchi does not clear after coughing. ABDOMEN: Soft, nontender, nondistended. Bowel sounds present. No guarding. No rebound. Did not appreciate organomegaly. EXTREMITY: No clubbing, cyanosis. Pulses are present bilateral lower extremity. No pedal edema. Right upper extremity still with positive bruit and thrill. She has dilatation on the distal part of her fistula. NEUROLOGIC: No focal deficits appreciated. PSYCHIATRIC: Normal affect. LABORATORY DATA: WBC 7.4, hemoglobin 10.5, hematocrit 33.7, platelets 238. Sodium 140, potassium 4.5, chloride 100, carbon dioxide 28, BUN 29, creatinine 4.92, glucose 136, calcium 8.9, phosphorus 2.6, albumin 2.5. GI panel negative. Stool occult negative. Final pathology from CT-guided biopsy showed cords of benign lung parenchyma showing patchy areas of acute inflammation as well as necrotic neutrophilic debris, scarring of lung parenchyma. No malignancy noted. No new medication changes made in the last 24 hours. IMPRESSION AND PLAN: Ms. Jim is a pleasant, 66-year-old female with history of end-stage renal disease, on hemodialysis, secondary to Goodpasture's disease presented with fever, chills, rigor. Because of her abnormal CT that was concerning for initial concern for malignancy and/or Goodpasture's exacerbation , she had both bronchoscopy and CT-guided biopsy negative for malignancy and more consistent with organizing pneumonia. 1. End-stage renal disease on hemodialysis. Regular schedule hemodialysis days are Mondays, Wednesdays, Fridays. She tolerated dialysis well yesterday with 2.5 kg removed as planned. She had some episodes of chills after dialysis, which has since resolved. We will plan for dialysis again Sunday. 2. Organizing pneumonia. Previously on vancomycin and Zosyn. This was later changed to Rocephin, antibiotic day #8. This is currently being managed by primary team. 3. Diarrhea, resolved. She has a history of Clostridium (C.) difficile requiring stool transplant. Bowel movements have been less frequent and nausea seems to be under control now that Flagyl was changed from by mouth to intravenous (IV). Continue Bacid twice a day. C difficile culture check at this time has been negative. 4. Hypophosphatemia. Phosphorus level has improved after Renvela was discontinued. 5. History of Good pasture's disease. Initially was empirically treated with pulsed dose steroids. Anti-GBM have been essentially negative. Will continue with prednisone taper with eventual maintenance dose of 5 mg daily thereafter. 6. Hypertension. Blood pressure is still within reasonable range. Continue losartan 50 mg daily. Continue Lopressor four times a week on non dialysis days and metoprolol nightly. 7. Pseudoaneurysm. 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 Upon palpation it appears to be more consistent of an AV graft. In any case, we will reach out Dr. Hanson on Sunday for assistance for possible stent. This was placed by Dr. Quick in [place]. She has an appointment with vascular surgeon in the end of this month. We will try and arrange to see if she can be seen earlier. She continues to receive hemodialysis through a site that is more proximal to her pseudoaneurysm. My preceptor for this patient encounter was Iraida Duong MD. The preceptor was physically present in the building during the encounter and was fully available. As needed, all aspects of the patient interview, examination, medical decision making process, and medical care plan development were reviewed and approved by the preceptor. The preceptor is aware and concurs with the plan as stated in the body of this note and will attest to such by his/her co-signature. SOL
[2016-12-31] MEDS: CHECK TO SEE IF PATIENT IS RECEIVING DIALYSIS TODAY AND REFER TO THE VANCOMYCIN ORDER XX SCH (16:28)
[2016-12-31 22:00] VITALS: BP 142/66
[2016-12-31] MEDS: CYANOCOBALAMIN 500 MCG TAB PO SCH (22:32)
[2016-12-31] MEDS: LOSARTAN 50 MG TAB PO SCH (22:33)
[2016-12-31] MEDS: CETIRIZINE (ZyrTEC) 10 MG TAB PO SCH (22:33)
[2016-12-31] MEDS: PRAVASTATIN 20 MG TAB PO SCH (22:33)
[2016-12-31] MEDS: FLUTICASONE PROP 0.05% NASAL SPRAY 16 GM (FLONASE) SCH (22:34)
[2017-01-01 05:59] LABS: MEAN CORPUSCULAR HEMOGLOBIN 29.4 pg (27.0-33.0); MEAN CORPUSCULAR HGB CONC 31.5 g/dl (32.0-36.5); MEAN CORPUSCULAR VOLUME 93.2 fl (80.0-96.0); RED CELL DISTRIBUTION WIDTH 17.9 % (11.5-14.5)
[2017-01-01 06:00] VITALS: BP 164/78
[2017-01-01] MEDS: SLF 3 ML SYR IV SCH ×3 (06:00→21:49)
[2017-01-01] MEDS: ACETAMINOPHEN TAB 650MG DOSE (2X325MG) PO PRN (06:00)
[2017-01-01] MEDS: metroNIDAZOLE 500 MG in APPROPRIATE DILUENT 1 EA IV SCH (06:01)
[2017-01-01] MEDS: LEVOTHYROXINE 0.125 MG TAB (125 MCG) PO SCH (06:01)
[2017-01-01] MEDS: HEPARIN SOD (PORCINE) 5000 UNITS/ML VIAL SQ SCH ×3 (06:01→21:48)
[2017-01-01 06:04] LABS: ALBUMIN 2.5 GM/DL (3.2-5.2); CALCIUM LEVEL 8.3 MG/DL (8.8-10.2); CREATININE FOR GFR 8.4 MG/DL (0.55-1.02); GLOMERULAR FILTRATION RATE 5.1 (>45); PHOSPHORUS LEVEL 2.4 MG/DL (2.5-4.9); POTASSIUM SERUM 3.8 MEQ/L (3.5-5.1)
[2017-01-01] MEDS: PANTOPRAZOLE 40MG TAB (PROTONIX) PO SCH ×2 (07:22→20:43)
[2017-01-01] MEDS: guaiFENesin ER 600 MG TAB PO SCH ×2 (07:23→20:43)
[2017-01-01] MEDS: CEFDINIR 300 MG CAP (OMNICEF) PO SCH ×2 (07:23→20:43)
[2017-01-01] MEDS: predniSONE 10 MG TAB PO SCH (07:23)
[2017-01-01] MEDS: LACTOBACILLUS ACIDOPHILUS CAP (BACID) PO SCH ×2 (07:23→20:42)
[2017-01-01] MEDS: OMEGA-3 1050MG CAPSULE PO SCH (07:23)
[2017-01-01] MEDS: DICYCLOMINE 10 MG CAP PO SCH ×4 (07:24→20:42)
[2017-01-01] MEDS: NEOSPORIN TOP OINT 15GM TOP SCH ×2 (07:25→20:44)
[2017-01-01] MEDS ORDERED: LOPERAMIDE 2 MG CAP PO ONE (08:00)
[2017-01-01] MEDS: ALBUTEROL SULFATE 2.5 MG/0.5 ML INH NEB SOLN INH SCH ×4 (08:00→19:32)
[2017-01-01] MEDS: FLUTICASONE HFA 110 MCG 12 GM INHALER (FLOVENT) INH SCH ×2 (08:18→19:32)
--- NOTE | 2017-01-01 08:44 | IPNPDOC ---
Subjective Date Seen The patient was seen on 01/01/17. Subjective Chief Complaint/HPI The patient is a 66-year-old female admitted with a reason for visit of Pneumonia. Events since last encounter Denies c/o. Constitutional: Denies: Chills, Fever, Night Sweats Pulmonary: Denies: Cough, Dyspnea Gastrointestinal: Denies: Abdominal Pain, Constipation, Diarrhea, Hematochezia , Melena, Nausea, Other Symptoms, Vomiting Genitourinary: Denies: Dysuria, Frequency, Incontinence, Retention Psych: Reports: Mood Normal, Denies: Depression, Memory Issues Objective Physical Examination General Exam: Positive: Alert, No Acute Distress Eye Exam: Positive: PERRLA, Negative: Sclera icteric ENT Exam: Positive: Atraumatic, Mucous membr. moist/pink Neck Exam: Positive: Supple, Negative: JVD Chest Exam: Positive: Diminished (throughout, course BS, some rhonchi at R base , improves with coughing), Negative: Rhonchi, Wheezing Heart Exam: Positive: Normal S1, Normal S2, Other (distant heart sounds), Rate Normal, Regular Rhythm, Negative: Murmurs, Rubs Abdomen Exam: Positive: Normal bowel sounds, Soft, Negative: Tenderness Extremity Exam: Negative: Edema Skin Exam: Positive: Nl turgor and temperature, Negative: Breakdown, Rash Assessment /Plan Problems (1) Pneumonia Status: Acute Problem Text: 12/31 - Afebrile > 24 h, change from IV rocephin to PO Cefdinir, if does well, anticipate d/c home on Sunday. Will need total of 6 w IV abx with f/u with Pulm 12/30 - slight bump in temp yesterday, if remains afebrile for 24 h, will change to PO Cefdinir tomorrow. Pt is feeling better today. 12/29 - Patient had chills after starting dialysis this morning, but no fevers. Continue IV rocephin until tomorrow and if no fevers overnight, consider transitioning to PO Cefdinir per Pulm's recommendations as below. 12/28 - bronchoscopy suggested PN - started on IV Rocephin, will continue for 1-2 more days, if pt contnues to improve, remains afebrile, and nl WBC, will change to po Cefdinir per Pulms recommendations, although Augmentin or Clinda is preferred will avoid d/t pts h/o C diff and current GI distress. 12/27/2016: On prednisone per Pulmolology 12/26 Zosyn/Vanco D5 - resp status stable. Afebrile, WBC normalized-case d/w Dr. Morales-doubt PN; therefore, stopped abx (jayshree given C diff h/o) 12/25 Zosyn/Vanco D4 - pu 12/24 - Zosyn/Vanco D3 for possible necrotizing pneumonia based on ct findings. Blood cx no growth after 24 hours. Afebrile. Discussed with nephrology. Will consult pulmonary. D2 abx- vanco/zosyn for possible necrotizing pneumonia based on ct findings. bcx pending. fever curve improving. continues to require O2. -acappella 12/23 PPD placed (2) Diarrhea Status: Acute Problem Text: 01/01/2017: immodiun given prn diarrhea. Change to po Flagyl. Zofran given prn nausea. 12/31 - Immodium prn, Flagyl IV still d/t N/V with po, will need to change to PO for d/c. 12/26 GI panel neg. Given Imodium prn. Back on IV abx due to pneumonia, started on Flagyl d/t h/o C diff. Flagyl may be contributing to patient's nausea. 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 12/27/2016: Pulmonology following. bx pending. 12/26 - Await bronch results 12/25 - Pulm plans Bronch today. suspicious for malignancy. 12/24 Dr. Morales consulted-plan bronch for AM 12/22/16 CT CAP 66 mm necrotic mass-favor tumor vs infectious +/- recurrent Goodpasture's, B iliac crest sclerotic lesions (CRP 29, ESR 129!) 12/23/16 Nephro started SM She has significant risk for malignancy considering smoking hx/chronic immune suppression (4) COPD (chronic obstructive pulmonary disease) Status: Acute Response to Treatment: Stable Problem Text: Stable at this point (5) Chronic anemia Status: Chronic Problem Text: 12/31 - Hgb down slightly today from 10 to 9.9, monitor. 3/ - H/H have been stable for several days. Partially due to CKD, but favor also acute blood loss anemia-? 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 Hgb 9.9 today. 12/23 - Her hgb today is 7.7, which is a drop from yesterday. 12/23 - H pylori Ab 12/23 PT/PTT 1412/23 HO - (6) Goodpasture syndrome Status: Chronic Problem Text: Nephrology following. MED, ANCA, Anti-GBM ab ordered - all Neg. . Off cyclophosphamide, on prednisone 20 mg PO BID (7) Hypothyroid Status: Chronic Response to Treatment: Stable Problem Text: 09/2016 TSH 0.3 (8) End stage renal disease on dialysis Status: Chronic Problem Text: Due to Goodpasture's. Dialysis MWF, followed by nephrology. -off cyclophosphamide -prednisone 20 mg BID (9) Diastolic dysfunction Status: Chronic Problem Text: Compensated on exam (10) Hyperlipidemia Status: Chronic Problem Text: On statin, fish oil (11) Hypertension Status: Chronic Problem Text: Controlled on home regimen- losartan/metoprolol; intermittently elevated, especially prior to dialysis which is expected. Plan/VTE VTE Prophylaxis Ordered?: Yes (heparin) VS, I&O, 24H, Fishbone Vital Signs/I&O Vital Signs Date Time Temp Pulse Resp B/P Pulse Ox O2 Delivery O2 Flow Rate FiO2 01/01/17 06:00 98.7 75 18 164/78 96 Room Air 12/31/16 14:00 2.0 I&O- Last 24 Hours up to 6 AM 01/01/17 05:59 Intake Total 1370 ml Output Total 0 ml Balance 1370 ml Laboratory Data 24H LABS Laboratory Tests 2 01/01/17 05:34: Albumin 2.5L, Blood Urea Nitrogen 65H, Creatinine 8.40H, Sodium Level 140, Potassium Level 3.8, Chloride Level 101, Carbon Dioxide Level 24, Anion Gap 15, Calcium Level 8.3L, Glomerular Filtration Rate 5.1L, Phosphorus Level 2.4L CBC/BMP Laboratory Tests 01/01/17 05:34 Anion Gap 15, Red Blood Count 3.40 L, Mean Corpuscular Volume 93.2, Mean Corpuscular Hemoglobin 29.4, Mean Corpuscular Hemoglobin Concent 31.5 L, Red Cell Distribution Width 17.9 H Microbiology Microbiology 12/22/16 Blood Culture - Final, Complete NO GROWTH AFTER 5 DAYS 12/22/16 Blood Culture - Final, Complete NO GROWTH AFTER 5 DAYS 12/26/16 Gastrointestinal Tract Panel (PCR) - Final, Complete 12/25/16 Stool Occult Blood (MOISÉS) - Final, Complete 12/25/16 Acid Fast Stain - Final, Resulted 12/25/16 Mycobacterial Culture, Resulted Pending 12/25/16 Fungal Smear, Resulted Pending 12/25/16 Fungal Culture, Resulted Pending 12/25/16 Gram Stain - Final, Complete 12/25/16 Bronchoalveolar Lavage Culture - Final, Complete Essence Branham [facility] Jan 01, 2017 08:44
[2017-01-01] MEDS ORDERED: ONDANSETRON 4 MG TAB (S0181) PO PRN (08:45)
[2017-01-01] MEDS ORDERED: HEPARIN 1,000 UNITS/ML 10ML VIAL (FOR RADIOLOGY& DIALYSIS ONLY) IV ONE (10:00)
[2017-01-01] MEDS: TIAGABINE 4 MG PO SCH (12:04)
[2017-01-01] MEDS: metroNIDAZOLE (FLAGYL) 500 MG TAB PO SCH ×2 (14:00→21:48)
[2017-01-01] MEDS: LOSARTAN 50 MG TAB PO SCH (20:43)
[2017-01-01] MEDS: METOPROLOL TART 50 MG TAB PO SCH (20:43)
[2017-01-01] MEDS: PRAVASTATIN 20 MG TAB PO SCH (20:43)
[2017-01-01] MEDS: CETIRIZINE (ZyrTEC) 10 MG TAB PO SCH (20:43)
[2017-01-01] MEDS: CYANOCOBALAMIN 500 MCG TAB PO SCH (20:44)
[2017-01-01] MEDS: FLUTICASONE PROP 0.05% NASAL SPRAY 16 GM (FLONASE) SCH (20:44)
[2017-01-01] MEDS: BENZONATATE 100 MG CAP PO PRN (20:46)
--- NOTE | 2017-01-01 21:12 | IPN ---
DATE: 01/01/2017 SUBJECTIVE: This is a 66-year-old female who was seen and examined at bed side. Overnight no reported acute events. This morning states that her cough is less frequent. Still has loose bowel movements, so far has reported three. REVIEW OF SYSTEMS: No longer reports chills. No fevers, night sweats, nausea, vomiting, abdominal pain, chest pain, shortness of breath, palpitations. Cough is still dry. OBJECTIVE: VITAL SIGNS: Blood pressure 164/78, heart rate 75, temperature 98.7, respiratory rate 18, pulse oximetry 96% on room air. INTAKE AND OUTTAKE: Last 24 hours 1540 and no output documented. Two bowel movements documented in last 12 hours. Weight is 83.4 kg. Yesterday was documented 70 kg, question accuracy. GENERAL: Patient was sitting in bed comfortable. In no acute distress. She is alert, awake, oriented times three. Pleasant, cooperative. HEENT: Normocephalic, atraumatic. Moist oral mucosa. NECK: Supple. Trachea midline. No jugular venous distention (JVD). CHEST: Symmetric chest rise. No accessory muscle use. 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 Coughs less during exam today. CARDIOVASCULAR: Regular rate and rhythm. S1, S2 normal. There is systolic murmur in the second intercostal border without radiating to the carotids. ABDOMEN: Soft, nontender, nondistended. Bowel sounds present. No guarding. No rebound. Could not appreciate organomegaly. EXTREMITY: No clubbing, cyanosis. Pedal pulses are present bilateral lower extremity. No pedal edema. Right upper extremity with positive bruit and thrill. Still persistent dilatation of her distal part of her fistula. NEUROLOGIC: No focal deficits appreciated. PSYCHIATRIC: Normal affect. LABORATORY DATA: WBC 8, hemoglobin 10, hematocrit 31.7, platelets 200. Sodium 140, potassium 3.8, chloride 101, carbon dioxide 24, BUN 65, creatinine 8.4, glucose 101, phosphorous 2.4, calcium 8.3, albumin 2.5. IMPRESSION AND PLAN: Ms. Jim is 60-year-old female with history of end-stage renal disease on hemodialysis secondary to Goodpasture's disease initially presented with fever, chills, rigor. Found to have organizing pneumonia via biopsy. 1. End-stage renal disease on hemodialysis. Secondary to Goodpasture's disease. Regular dialysis days are on Mondays, Wednesdays, Fridays. We will plan to dialyze again this afternoon. 2. Organizing pneumonia. Previously on vancomycin later switched to Rocephin. She is now on Cefdinir that was started yesterday by primary team. She is now on day #10 of antibiotics. 3. 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 We have attempted to reach out to Dr. Hanson today and awaiting call back for assistance regarding this. Hopefully , this can be addressed this admission. If this is unable to be pursued, she will follow up with Dr. Quick outpatient earlier than her previous schedule. 4. Hypophosphatemia. Continue holding Renvela. 5. History of Goodpasture's disease. Repeat Anti-GBM is negative. She is on prednisone taper. Chronically on prednisone 5 mg daily. 6. Hypertension. She is on her home dose antihypertensive regimen including Cozaar 50 mg every evening and Lopressor daily on non dialysis days and Lopressor at bedtime. 7. Diarrhea, improving. Clostridium (C.) difficile was negative. Continue to be on Bacid and Flagyl. Patient is at high risk of recurrent of C. difficile due to her prior history and also history of stool transplant. My preceptor for this patient encounter was Dr. Iraida Duong. The preceptor was physically present in the building during the encounter and was fully available as needed. All aspects of the patient interview, examination, medical decision making process, and medical care plan development were reviewed and approved by the preceptor. The preceptor is aware and concurs with the plan as stated in the body of this note and will attest to such by his/her co-signature. SOL
[2017-01-01 22:00] VITALS: BP 128/84
[2017-01-02] VITALS (9 sets, daily range): BP systolic 126–162; BP diastolic 58–70
[2017-01-02] MEDS: BENZONATATE 100 MG CAP PO PRN ×3 (02:52→17:27)
[2017-01-02] MEDS: ACETAMINOPHEN TAB 650MG DOSE (2X325MG) PO PRN ×4 (02:52→20:12)
[2017-01-02] MEDS: SLF 3 ML SYR IV SCH ×3 (05:30→21:59)
[2017-01-02] MEDS: LEVOTHYROXINE 0.125 MG TAB (125 MCG) PO SCH (05:30)
[2017-01-02] MEDS: metroNIDAZOLE (FLAGYL) 500 MG TAB PO SCH ×3 (05:30→21:48)
[2017-01-02 06:29] LABS: ALBUMIN 2.4 GM/DL (3.2-5.2); CALCIUM LEVEL 8.9 MG/DL (8.8-10.2); CREATININE FOR GFR 5.2 MG/DL (0.55-1.02); GLOMERULAR FILTRATION RATE 8.8 (>45); PHOSPHORUS LEVEL 1.7 MG/DL (2.5-4.9)
[2017-01-02 06:42] LABS: MEAN CORPUSCULAR HEMOGLOBIN 29.6 pg (27.0-33.0); MEAN CORPUSCULAR HGB CONC 32.2 g/dl (32.0-36.5); RED CELL DISTRIBUTION WIDTH 18.2 % (11.5-14.5); WHITE BLOOD COUNT 9.1 K/mm3 (4.0-10.0)
[2017-01-02] MEDS: ALBUTEROL SULFATE 2.5 MG/0.5 ML INH NEB SOLN INH SCH ×4 (08:00→21:00)
[2017-01-02] MEDS: FLUTICASONE HFA 110 MCG 12 GM INHALER (FLOVENT) INH SCH ×2 (08:38→21:00)
[2017-01-02] MEDS: LACTOBACILLUS ACIDOPHILUS CAP (BACID) PO SCH ×2 (08:42→20:05)
[2017-01-02] MEDS: DICYCLOMINE 10 MG CAP PO SCH ×4 (08:42→20:05)
[2017-01-02] MEDS: OMEGA-3 1050MG CAPSULE PO SCH (08:42)
[2017-01-02] MEDS: PANTOPRAZOLE 40MG TAB (PROTONIX) PO SCH ×2 (08:42→20:05)
[2017-01-02] MEDS: predniSONE 20 MG TAB PO SCH (08:42)
[2017-01-02] MEDS: CEFDINIR 300 MG CAP (OMNICEF) PO SCH ×2 (08:42→20:05)
[2017-01-02] MEDS: guaiFENesin ER 600 MG TAB PO SCH ×2 (08:42→20:05)
[2017-01-02] MEDS: METOPROLOL TART 50 MG TAB PO SCH ×2 (08:43→20:04)
[2017-01-02] MEDS: NEOSPORIN TOP OINT 15GM TOP SCH ×2 (08:46→21:00)
[2017-01-02] MEDS: HEPARIN SOD (PORCINE) 5000 UNITS/ML VIAL SQ SCH ×3 (09:00→21:47)
--- NOTE | 2017-01-02 10:13 | IPNPDOC ---
Subjective Date Seen The patient was seen on 01/02/17. Subjective Chief Complaint/HPI The patient is a 66-year-old female admitted with a reason for visit of Pneumonia. Constitutional: Denies: Chills, Fever, Night Sweats Skin: Denies: Breakdown, Lesions, Rash Pulmonary: Denies: Cough, Dyspnea Gastrointestinal: Denies: Abdominal Pain, Constipation, Diarrhea, Nausea, Vomiting Genitourinary: Denies: Dysuria, Frequency, Incontinence, Retention Objective Physical Examination General Exam: Positive: Alert, No Acute Distress Eye Exam: Positive: PERRLA, Negative: Sclera icteric ENT Exam: Positive: Atraumatic, Mucous membr. moist/pink Neck Exam: Positive: Supple, Negative: JVD Chest Exam: Positive: Diminished (throughout, course BS, some rhonchi at R base , improves with coughing), Negative: Rhonchi, Wheezing Heart Exam: Positive: Normal S1, Normal S2, Other (distant heart sounds), Rate Normal, Regular Rhythm, Negative: Murmurs, Rubs Abdomen Exam: Positive: Normal bowel sounds, Soft, Negative: Tenderness Extremity Exam: Negative: Edema Skin Exam: Positive: Nl turgor and temperature, Negative: Breakdown, Rash Assessment /Plan Problems (1) AV fistula Status: Acute Problem Text: In need of sten placement due to malfunction of AVF. plan on proceeding with stent placement this afternoon. DC to assisted living in am. (2) Pneumonia Status: Acute Problem Text: 12/31 - Afebrile > 24 h, change from IV rocephin to PO Cefdinir, if does well, anticipate d/c home on Sunday. Will need total of 6 w IV abx with f/u with Pulm 12/30 - slight bump in temp yesterday, if remains afebrile for 24 h, will change to PO Cefdinir tomorrow. Pt is feeling better today. 12/29 - Patient had chills after starting dialysis this morning, but no fevers. Continue IV rocephin until tomorrow and if no fevers overnight, consider transitioning to PO Cefdinir per Pulm's recommendations as below. 12/28 - bronchoscopy suggested PN - started on IV Rocephin, will continue for 1-2 more days, if pt contnues to improve, remains afebrile, and nl WBC, will change to po Cefdinir per Pulms recommendations, although Augmentin or Clinda is preferred will avoid d/t pts h/o C diff and current GI distress. 12/27/2016: On prednisone per Pulmolology 12/26 Zosyn/Vanco D5 - resp status stable. Afebrile, WBC normalized-case d/w Dr. Morales-doubt PN; therefore, stopped abx (jayshree given C diff h/o) 12/25 Zosyn/Vanco D4 - pu 12/24 - Zosyn/Vanco D3 for possible necrotizing pneumonia based on ct findings. Blood cx no growth after 24 hours. Afebrile. Discussed with nephrology. Will consult pulmonary. D2 abx- vanco/zosyn for possible necrotizing pneumonia based on ct findings. bcx pending. fever curve improving. continues to require O2. -acappella 12/23 PPD placed (3) Diarrhea Status: Acute Problem Text: 01/01/2017: immodiun given prn diarrhea. Change to po Flagyl. Zofran given prn nausea. 12/31 - Immodium prn, Flagyl IV still d/t N/V with po, will need to change to PO for d/c. 12/26 GI panel neg. Given Imodium prn. Back on IV abx due to pneumonia, started on Flagyl d/t h/o C diff. Flagyl may be contributing to patient's nausea. 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 12/27/2016: Pulmonology following. bx pending. 12/26 - Await bronch results 12/25 - Pulm plans Bronch today. suspicious for malignancy. 12/24 Dr. Morales consulted-plan bronch for AM 12/22/16 CT CAP 66 mm necrotic mass-favor tumor vs infectious +/- recurrent Goodpasture's, B iliac crest sclerotic lesions (CRP 29, ESR 129!) 12/23/16 Nephro started SM She has significant risk for malignancy considering smoking hx/chronic immune suppression (5) COPD (chronic obstructive pulmonary disease) Status: Acute Response to Treatment: Stable Problem Text: Stable at this point (6) Chronic anemia Status: Chronic Problem Text: 12/31 - Hgb down slightly today from 10 to 9.9, monitor. 3 - H/H have been stable for several days. Partially due to CKD, but favor also acute blood loss anemia-? 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 Hgb 9.9 today. 12/23 - Her hgb today is 7.7, which is a drop from yesterday. 12/23 - H pylori Ab 12/23 PT/PTT 12/23 HO - (7) Goodpasture syndrome Status: Chronic Problem Text: Nephrology following. MED, ANCA, Anti-GBM ab ordered - all Neg. . Off cyclophosphamide, on prednisone 20 mg PO BID (8) Hypothyroid Status: Chronic Response to Treatment: Stable Problem Text: 09/2016 TSH 0.3 (9) End stage renal disease on dialysis Status: Chronic Problem Text: Due to Goodpasture's. Dialysis MWF, followed by nephrology. -off cyclophosphamide -prednisone 20 mg BID (10) Diastolic dysfunction Status: Chronic Problem Text: Compensated on exam (11) Hyperlipidemia Status: Chronic Problem Text: On statin, fish oil (12) Hypertension Status: Chronic Problem Text: Controlled on home regimen- losartan/metoprolol; intermittently elevated, especially prior to dialysis which is expected. Plan/VTE VTE Prophylaxis Ordered?: Yes (heparin) VS, I&O, 24H, Fishbone Vital Signs/I&O Vital Signs Date Time Temp Pulse Resp B/P Pulse Ox O2 Delivery O2 Flow Rate FiO2 01/02/17 08:43 107 127/57 01/02/17 06:00 98.1 16 93 Nasal Cannula 2.0 I&O- Last 24 Hours up to 6 AM 01/02/17 06:00 Intake Total 940 ml Output Total 2500 ml Balance -1560 ml Laboratory Data 24H LABS Laboratory Tests 2 01/02/17 05:31: Albumin 2.4L, Blood Urea Nitrogen 33H, Creatinine 5.20H, Sodium Level 149#H, Potassium Level 4.0, Chloride Level 106, Carbon Dioxide Level 28, Anion Gap 15, Calcium Level 8.9, Glomerular Filtration Rate 8.8L, Phosphorus Level 1.7#L CBC/BMP Laboratory Tests 01/02/17 05:31 Anion Gap 15, Red Blood Count 3.34 L, Mean Corpuscular Volume 92.0, Mean Corpuscular Hemoglobin 29.6, Mean Corpuscular Hemoglobin Concent 32.2, Red Cell Distribution Width 18.2 H Microbiology Microbiology 12/26/16 Gastrointestinal Tract Panel (PCR) - Final, Complete 12/25/16 Stool Occult Blood (MOISÉS) - Final, Complete 12/25/16 Acid Fast Stain - Final, Resulted 12/25/16 Mycobacterial Culture, Resulted Pending 12/25/16 Fungal Smear, Resulted Pending 12/25/16 Fungal Culture, Resulted Pending 12/25/16 Gram Stain - Final, Complete 12/25/16 Bronchoalveolar Lavage Culture - Final, Complete Essence Branham ASSOCIATE PROGRAMMER ANALYST Jan 02, 2017 10:13
[2017-01-02] MEDS: TIAGABINE 4 MG PO SCH (11:02)
[2017-01-02] MEDS ORDERED: DEXTROMETHORPHAN 5 ML SYRUP (ROBITUSSIN PEDIATRIC COUGH) PO PRN (12:15)
[2017-01-02] MEDS ORDERED: SODIUM BICARBONATE 8.4% INJ 50MEQ 50 ML VIAL As Ordered ONE (13:55)
[2017-01-02] MEDS ORDERED: HEPARIN 1,000 UNITS/ML 10ML VIAL (FOR RADIOLOGY& DIALYSIS ONLY) As Ordered ONE (13:55)
[2017-01-02] MEDS ORDERED: LIDOCAINE 2% MDV 20 ML VIAL As Ordered ONE (13:55)
[2017-01-02] MEDS ORDERED: ISOVUE-300 61% 50ML VIAL (Q9967) As Ordered ONE (13:56)
--- NOTE | 2017-01-02 15:02 | IPN ---
DATE: 01/02/2017 SUBJECTIVE: This is a 66-year-old female who was seen and examined at bed side. Overnight no acute events. Yesterday, underwent hemodialysis without any problems. This morning states that her cough is improved but would like to have something added to help suppress it. No production. No fever or chills, chest pain, palpitations, shortness of breath. Bowel movements have been decreasing, only 2 so far today. OBJECTIVE: VITAL SIGNS: Blood pressure 143/64, heart rate 89 and later was 107, temperature 98.1, respiratory rate 16, pulse oximetry 93% on 2 liters nasal cannula. INTAKE AND OUTTAKE: Last 24 hours 1180 in and 2500. Weight is 68.4 and yesterday was 70.5 kg. GENERAL: Patient was sitting in bed comfortable. No acute distress. She is alert, awake, oriented times three. Pleasant, cooperative. HEENT: Normocephalic, atraumatic. Moist oral mucosa. NECK: Supple. Trachea midline. No jugular venous distention (JVD). CHEST: Symmetric chest rise. No accessory muscle use. Breath sounds diminished with persistent expiratory rhonchi. Continues to cough during the exam but less today compared to yesterday. HEART: Regular rate and rhythm. S1, S2 present, normal S1, S2. Persistent systolic murmur in the right second intercostal border without radiating to the carotids, 2/6, unchanged ABDOMEN: Soft, nontender, nondistended. Bowel sounds present. No guarding. No rebound. EXTREMITY: No pedal edema. Pedal pulses present bilaterally. Right upper extremity still with positive thrill. Persistent dilatation of distal fistula. NEUROLOGIC: No focal deficits. PSYCHIATRIC: Normal affect. LABORATORY DATA: WBC 9.1, hemoglobin 9.9, hematocrit 30.8, platelets 188. Sodium 149, potassium 4, chloride 106, carbon dioxide 28, BUN 33, creatinine 5.2, glucose 117, calcium 8.9, phosphorous 1.7, albumin 2.4. IMPRESSION AND PLAN: Ms. Jim is 66-year-old female with history of end-stage renal disease on hemodialysis secondary to Goodpasture's disease who presented with fever, chills, rigor found to have organizing pneumonia. 1. End-stage renal disease on hemodialysis. Tolerated dialysis well yesterday and had 2.5 kg removed. Her next dialysis day is tomorrow. 2. Pseudoaneurysm. The case was discussed with Dr. Hanson. We have ordered right arm fistulogram with possible fistuloplasty. The patient is now made nothing by mouth after breakfast with plan for procedure this afternoon. 3. Organizing pneumonia. She is now on Cefdinir per primary team. On day 11 of antibiotics. 4. Persistent cough. She is on Mucinex, Tessalon Perles. Have added Robitussin. 5. Hypophosphatemia. Continue holding Renvela. 6. Goodpasture's disease. Continue prednisone taper, she is normally on 5 mg daily. 7. Hypertension. Blood pressure continues to be within reasonable range. Continue current dose of Lopressor. If she is able to have her fistuloplasty done this afternoon, then she can go home tomorrow and plan for dialysis outpatient. My preceptor for this patient encounter was Dr. Iraida Duong. The preceptor was physically present in the building during the encounter and was fully available as needed. All aspects of the patient interview, examination, medical decision making process, and medical care plan development were reviewed and approved by the preceptor. The preceptor is aware and concurs with the plan as stated in the body of this note and will attest to such by his/her co-signature. SOL
[2017-01-02] MEDS ORDERED: fentaNYL 100 MCG/2 ML INJECTION (J3010) As Ordered ONE (15:04)
--- NOTE | 2017-01-02 17:34 | REPKIM ---
CLINICAL HISTORY: Patient with end stage renal disease on hemodialysis via right upper arm AV fistula presents with AVF outflow pseudoaneurysm/ degeneration that threatens the integrity of the overlying skin. PROCEDURES PERFORMED: 1. Hemodialysis Fistulagram 2. AVF outflow vein stent graft placement for exclusion of the pseudoaneurysm 3. Completion Venogram INTERVENTIONALIST: Alexander Hanson MD CONSENT: The risks, benefits and alternatives to the procedure were explained to the patient and informed written consent was obtained. MEDICATIONS: Local Lidocaine and Heparin 3000 units IV CONTRAST: 49 mL Isovue 300 EBL: less than 10 mL FLUORO TIME: 3.9 minutes DEVICES USED: Fluency Plus Stent Graft 7mm x 60mm Lot#[id number], [place] 7mm x 4cm PHYSICIAN ASSISTANT SURGERY balloon Lot #[id number] PROCEDURE/FINDINGS: HEMODIALYSIS FISTULOGRAM: The patient was brought to the interventional radiology suite and placed in supine position. Time out procedure was performed. The patient was confirmed to have right arm AVF venous outflow pseudoaneurysm just below the skin level. The right upper arm was prepped and draped in a usual sterile fashion. The venous outflow of the right upper arm AVF just central to the arteriovenous anastomosis was accessed with a micropuncture needle after local anesthetic. Using this access a 5-Vietnamese catheter was introduced with its tip directed towards the venous outflow. Contrast was injected and fistulogram and central venogram were performed. A reflux fistulogram was also performed to evaluate the AVF inflow. This showed the AV anastomosis is widely patent with no significant stenosis. Pseudoaneurysm/degeneration noted involving the venous outflow near the AV anastomosis. The outflow vein, axillary vein and subclavian vein are continuous and patent with no significant stenosis. The superior vena cava is patent with no significant stenosis. STENT GRAFT PLACEMENT: A total of 3000 units of Heparin was intravenously administered. The venous outflow was traversed with a hydrophilic guidewire. The 5 Vietnamese catheter was exchanged over the guidewire for an 8-Vietnamese vascular sheath. Wire exchange was performed. A 6-cm length, 7-mm diameter Fluency stent graft was then deployed across the pseudoaneurysm/degeneration. A 7-mm diameter angioplasty balloon was used to ensure adequate apposition of the frank of the stent graft to the hemodialysis fistula. Post stent venogram showed excellent results with successful exclusion of the pseudoaneurysm and no evidence of flow limiting intimal flap. The vascular sheath, catheter and guidewire were removed and hemostasis achieved by manual compression and purse string suture. The patient tolerated the procedure well with no immediate complications. This procedure was performed using fluoroscopy. IMPRESSION: 1. Patent right upper arm AVF associated with pseudoaneurysm involving the venous outflow near the AV anastomosis as discussed above. 2. Under direct fluoroscopic guidance, successful exclusion of the pseudoaneurysm with precise deployment of an 7??60 mm stent graft 3. The outflow vein, axillary vein, subclavian vein and superior vena cava are continuous and patent with no significant stenosis. Excellent thrill was palpable. Dr. Hanson was present for this procedure as documented in the progress notes. cc: Iraida Duong MD [facility]
[2017-01-02] MEDS: CYANOCOBALAMIN 500 MCG TAB PO SCH (20:05)
[2017-01-02] MEDS: PRAVASTATIN 20 MG TAB PO SCH (20:05)
[2017-01-02] MEDS: LOSARTAN 50 MG TAB PO SCH (20:05)
[2017-01-02] MEDS: CETIRIZINE (ZyrTEC) 10 MG TAB PO SCH (20:05)
[2017-01-02] MEDS: FLUTICASONE PROP 0.05% NASAL SPRAY 16 GM (FLONASE) SCH ×2 (20:06→20:13)
[2017-01-03] MEDS: ACETAMINOPHEN TAB 650MG DOSE (2X325MG) PO PRN (00:10)
[2017-01-03] MEDS: NORCO, ANEXSIA 5/325MG TABLET (HYDROcodone/ACETAMINOPHEN) PO PRN ×2 (01:38→05:49)
[2017-01-03] MEDS: HEPARIN SOD (PORCINE) 5000 UNITS/ML VIAL SQ SCH (05:47)
[2017-01-03] MEDS: metroNIDAZOLE (FLAGYL) 500 MG TAB PO SCH (05:47)
[2017-01-03] MEDS: DICYCLOMINE 10 MG CAP PO SCH (05:47)
[2017-01-03] MEDS: LACTOBACILLUS ACIDOPHILUS CAP (BACID) PO SCH (05:47)
[2017-01-03] MEDS: CEFDINIR 300 MG CAP (OMNICEF) PO SCH (05:48)
[2017-01-03] MEDS: LEVOTHYROXINE 0.125 MG TAB (125 MCG) PO SCH (05:48)
[2017-01-03] MEDS: guaiFENesin ER 600 MG TAB PO SCH (05:49)
[2017-01-03] MEDS: OMEGA-3 1050MG CAPSULE PO SCH (05:49)
[2017-01-03] MEDS: PANTOPRAZOLE 40MG TAB (PROTONIX) PO SCH (05:50)
[2017-01-03] MEDS: FLUTICASONE PROP 0.05% NASAL SPRAY 16 GM (FLONASE) SCH (05:50)
[2017-01-03] MEDS: predniSONE 20 MG TAB PO SCH (05:50)
[2017-01-03 06:00] VITALS: BP 139/70
[2017-01-03] MEDS: SLF 3 ML SYR IV SCH (06:00)
[2017-01-03] MEDS ORDERED: ONDA1TAB15 PO (07:13)
[2017-01-03] MEDS ORDERED: FLAG500T PO (07:13)
[2017-01-03] MEDS ORDERED: CEFD300CAP PO (07:13)
[2017-01-03 07:14] LABS: MEAN CORPUSCULAR HEMOGLOBIN 28.4 pg (27.0-33.0); MEAN CORPUSCULAR HGB CONC 30.9 g/dl (32.0-36.5); MEAN CORPUSCULAR VOLUME 92.2 fl (80.0-96.0); RED CELL DISTRIBUTION WIDTH 18.3 % (11.5-14.5); WHITE BLOOD COUNT 10.3 K/mm3 (4.0-10.0)
[2017-01-03] MEDS ORDERED: PRED5TA PO (07:20)
[2017-01-03 07:24] LABS: ALBUMIN 2.5 GM/DL (3.2-5.2); CALCIUM LEVEL 8.4 MG/DL (8.8-10.2); CREATININE FOR GFR 7.27 MG/DL (0.55-1.02); PHOSPHORUS LEVEL 2.3 MG/DL (2.5-4.9)
[2017-01-03] MEDS ORDERED: DEXT75EL PO (07:27)
[2017-01-03] MEDS ORDERED: BENZ100C5 PO (07:27)
[2017-01-03] MEDS: ALBUTEROL SULFATE 2.5 MG/0.5 ML INH NEB SOLN INH SCH ×2 (08:14→11:22)
[2017-01-03] MEDS: NEOSPORIN TOP OINT 15GM TOP SCH (08:21)
[2017-01-03] MEDS: FLUTICASONE HFA 110 MCG 12 GM INHALER (FLOVENT) INH SCH (08:29)
--- NOTE | 2017-01-03 14:21 | IPN ---
DATE: 01/03/2017 SUBJECTIVE: This is a 66-year-old female who was seen and examined at bedside. Yesterday underwent fistuloplasty with Dr. Hanson without any issues. Cough has improved. Bowel movement is now less frequent, had only one bowel movement since yesterday. REVIEW OF SYSTEMS: Denies any chest pain, shortness of breath, palpitations, fevers, chills, abdominal pain, nausea, vomiting, constipation. OBJECTIVE: VITAL SIGNS: Blood pressure 139/70, heart rate 80, temperature 98.5, respiration rate 19, pulse oximetry 96% on 2 liters nasal cannula. Intake and output last 24 hours: 1200 in, no output documented. Weight is 68.4. GENERAL: Patient is lying in bed, comfortable, in no acute distress. She is alert, awake, oriented times three, pleasant and cooperative. HEENT: Normocephalic, atraumatic. Moist oral mucosa. NECK: Supple, trachea midline, no jugular venous distention (JVD). CHEST: Symmetric chest rise, no accessory muscle use. Breath sounds were diminished with expiratory rhonchi, somewhat improved from yesterday, cough is less today. HEART: Regular rate and rhythm, S1, S2 normal. Unchanged systolic murmur in the right 2nd intercostal border without radiation to the carotid. ABDOMEN: Soft, nontender, nondistended. Bowel sounds present. No guarding. No rebound. EXTREMITIES: No pedal edema. Pedal pulses present bilaterally. Right upper extremity by her arteriovenous (AV) fistula site positive for thrill distally, palpation is improved today compared to prior visit. NEUROLOGIC: No focal deficits. PSYCHIATRIC: Normal affect. LABORATORY DATA: WBC 10.3, hemoglobin 10.1, hematocrit 32.6, platelets 182. Sodium 135, potassium 4, chloride 97, carbon dioxide 24, BUN 50, creatinine 7.27, glucose 115, calcium 8.4, phosphorous 2.3, improved from yesterday at 1.7, albumin 2.5. IMPRESSION AND PLAN: Ms. 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 1. End-stage renal disease on hemodialysis. Last dialysis was Sunday. We will plan for dialysis later today outpatient. 2. Pseudoaneurysm. The patient is status post fistulogram and stent placement. Continue hemodialysis at the site that is proximal to pseudoaneurysm site. 3. Organizing pneumonia. The patient is planned to go home with Cefdinir. 4. Persistent cough, secondary to pneumonia. Symptoms have improved after Robitussin was added. 5. Hypophosphatemia. She should continue holding home Renvela. 6. Goodpasture disease. Continue with prednisone taper. 7. Hypertension. Blood pressure is reasonable. Continue current home regimen. From a renal standpoint, the patient is amenable to be discharged. Currently there is discharge planning by primary team. She will be receiving hemodialysis later today at dialysis center. My preceptor for this patient encounter was Dr. Iraida Duong. The preceptor was physically present in the building during the encounter and was fully available. As needed, all aspects of the patient interview, examination, medical decision making process, and medical care plan development were reviewed and approved by the preceptor. The preceptor is aware and concurs with the plan as stated in the body of this note and will attest to such by his cosignature. SOL
--- NOTE | 2017-01-03 18:29 | DSES ---
DATE OF ADMISSION: 12/22/2016 DATE OF DISCHARGE: 01/03/2017 PRIMARY CARE PROVIDER: Dr. Jovita Cantu BACTERIOLOGY RESEARCH ASSISTANT: Dr. Jenkins CORPORATE STRATEGY ASSOCIATE: Dr. Duong HISTORY OF PRESENT ILLNESS: A 66-year-old female who presented to [facility] Emergency Room for complaints of not feeling well for 3-4 weeks, having left-sided rib pain which is at the bottom of her left ribcage. The patient had noted chills and night sweats for a week. Fever at home was 100.2 prior to presentation. Workup was completed in the emergency room. The patient had CT of the chest completed which demonstrated a 6.6 cm mass in the left upper lobe with some small interstitial infiltrative properties in the left upper lobe, a smaller mass noted in the right apex and multiple right lower lobe pulmonary nodules. Report states concerning for metastatic disease. The patient was subsequently admitted to the family medicine service. HOSPITAL COURSE: Consults were placed, both with nephrology as well as pulmonology. The patient has a history of Goodpasture syndrome and is on renal dialysis. Dr. Duong followed and managed the patient throughout hospitalization. Dr. Ben Morales was consulted from pulmonology. The patient is status post both a bronchoscopy as well as a CT-guided biopsy. Both of which demonstrated no found tumor yet, positive for necrotizing pneumonia. The patient was placed on both Zosyn and vancomycin IV. She received five days of that and was switched over to oral antibiotics, taking both Omnicef and Flagyl, and tolerating those well. She is to be on those for a total of six weeks per instructions with Dr. Morales. The patient did have an increase in her prednisone dosing which has slowly been tapered. She will take 10 mg today and tomorrow and then go back to her 5 mg dosing. The patient developed pseudoaneurysm to her right arm arteriovenous (AV) fistula. She is status post fistulogram with fistuloplasty completed by Dr. Alexander Hanson. The patient tolerated the procedure well and, per nephrology, is able to go home this morning. PHYSICAL EXAMINATION: VITAL SIGNS: On physical examination today, vital signs are stable. She is afebrile. GENERAL: She is resting comfortably, eating her breakfast in her examination room. She is alert and oriented times three. HEENT: Neck is supple without lymphadenopathy or jugular venous distention (JVD). CARDIOVASCULAR: Heart rate and rhythm are regular. PULMONARY: Lungs are diminished to the right base, otherwise clear. ABDOMEN: Soft, nontender. EXTREMITIES: Bilateral lower extremities are without any edema. ASSESSMENT: 1. Organizing pneumonia with pulmonary nodules. 2. Pulmonary mass, new, found on CT scan. 3. End-stage renal disease, on hemodialysis. 4. Pseudoaneurysm to her right arteriovenous (AV) fistula. 5. Hypophosphatemia. 6. Goodpasture's disease. 7. Hypertension. PLAN: The patient will be discharged home. Diet is a renal 2-gram sodium diet. Flood restrictions are per nephrology. Activity is as tolerated. She will go back to assisted-living. She will followup with her primary care provider (PCP), Dr. Jovita Cantu, within the next 5-7 days. She will followup with Dr. Morales on discharge. She will followup with Dr. Duong for her renal needs. MEDICATIONS: Are as follows: New prescriptions: - benzonatate 100 mg by mouth three times a day as needed for cough - Cefdinir 300 mg by mouth twice a day - Robitussin cough syrup 5 mL every six hours as needed for cough - metronidazole 500 mg one by mouth every eight hours - Zofran 4 mg tablet by mouth every six hours as needed for nausea, she has difficulty tolerating her metronidazole - prednisone 5 mg by mouth daily Continued medications include: - Tylenol 325 mg two by mouth every four hours as needed for pain or fever - acetaminophen with hydrocodone 5/325 mg one tablet by mouth every four hours as needed for pain - albuterol sulfate two puffs every six hours as needed for shortness of breath - artificial tears two drops in each eye every two hours as needed for dry eyes - calcium with vitamin D 600/400 mg/international units one tablet by mouth twice a day - cetirizine 10 mg by mouth at bedtime - vitamin B12 1000 mcg by mouth at bedtime - cyclobenzaprine 5 mg by mouth three times a day as needed - dicyclomine 20 mg by mouth four times a day - fish oil 1000 mg by mouth daily - Flonase allergy relief two sprays each nostril at bedtime - Flovent inhaler 110 mcg one puff twice a day - Mucinex 600 mg by mouth twice a day - lactobacillus acidophilus one tablet by mouth daily - levothyroxine 125 mcg by mouth daily - lidocaine cream topically three times per week prior to hemodialysis - loperamide 2 mg by mouth as needed for diarrhea - losartan 50 mg by mouth every evening - metoprolol tartrate 50 mg by mouth at bedtime - metoprolol tartrate 50 mg by mouth four times per week - pantoprazole sodium 40 mg by mouth twice a day - pravastatin 40 mg by mouth at bedtime - Phenergan 10 mg by mouth every six hours as needed for nausea - Refresh one dose to each eye at bedtime - Steph-Yovani one tablet by mouth daily - Renvela 800 mg by mouth twice a day - simethicone 80 mg chewable four times a day as needed gas pain - sodium polystyrene sulfonate 15 grams by mouth as needed missed dialysis days - Gabitril 4 mg by mouth daily - vitamin D 50,000 international units by mouth monthly The patient is discharged in stable and satisfactory condition with no further questions at the time of discharge.
[2017-01-04] MEDS ORDERED: POLY0.05 OU (02:28)
[2017-01-04] MEDS ORDERED: GUAI1TAB PO (02:28)
[2017-01-04] MEDS ORDERED: ONDA1TAB15 PO (02:28)
[2017-01-04] MEDS ORDERED: CEFD1CAP8 PO (02:28)
[2017-01-04] MEDS ORDERED: DEXT75EL PO (02:28)
[2017-01-04] MEDS ORDERED: BENZ100C5 PO (02:28)
[2017-01-04] MEDS ORDERED: METR500T10 PO (02:28)
[2017-01-04] MEDS ORDERED: PRED5TA PO (02:28)
[2017-01-04] MEDS ORDERED: predniSONE 10 MG TAB PO SCH (09:00)
[2017-01-06] MEDS ORDERED: predniSONE 5 MG TAB PO SCH (09:00)
== END 2017-01-03 13:00 | DRG 166 ==
LOC: M ED 13:11 → M ED INP 17:07 → M PCU 18:03 → M MSPAV 12-26 15:31
PROVIDERS: ADMIT Internal Medicine; ATTEND Family Medicine
PROC: 0B988ZX Drainage of Left Upper Lobe Bronchus, Via Natural or Artificial Opening Endoscopic, Diagnostic (ICD-10-PCS; 2016-12-25)
PROC: 3E1F88Z Irrigation of Respiratory Tract using Irrigating Substance, Via Natural or Artificial Opening Endoscopic (ICD-10-PCS; 2016-12-25)
PROC: 5A1D60Z (ICD-10-PCS; 2016-12-25)
PROC: 0B9G3ZX Drainage of Left Upper Lung Lobe, Percutaneous Approach, Diagnostic (ICD-10-PCS; 2016-12-27)
PROC: 05HY3DZ Insertion of Intraluminal Device into Upper Vein, Percutaneous Approach (ICD-10-PCS; principal; 2017-01-02)
DX: J85.0 Gangrene and necrosis of lung (principal); N18.6 End stage renal disease; I47.1 Supraventricular tachycardia; M31.0 Hypersensitivity angiitis; I12.0 Hypertensive chronic kidney disease with stage 5 chronic kidney disease or end stage renal disease; N25.81 Secondary hyperparathyroidism of renal origin; T82.41XA Breakdown (mechanical) of vascular dialysis catheter, initial encounter; E55.9 Vitamin D deficiency, unspecified; Z66 Do not resuscitate; J30.9 Allergic rhinitis, unspecified; K21.9 Gastro-esophageal reflux disease without esophagitis; K58.9 Irritable bowel syndrome, unspecified; K44.9 Diaphragmatic hernia without obstruction or gangrene; J44.9 Chronic obstructive pulmonary disease, unspecified; D63.1 Anemia in chronic kidney disease; E03.8 Other specified hypothyroidism; Z88.8 Allergy status to other drugs, medicaments and biological substances; Z79.51 Long term (current) use of inhaled steroids; Z90.710 Acquired absence of both cervix and uterus; Z87.891 Personal history of nicotine dependence; Z79.899 Other long term (current) drug therapy; Z99.2 Dependence on renal dialysis; Z88.6 Allergy status to analgesic agent; Z91.048 Other nonmedicinal substance allergy status; G47.33 Obstructive sleep apnea (adult) (pediatric); Y83.1 Surgical operation with implant of artificial internal device as the cause of abnormal reaction of the patient, or of later complication, without mention of misadventure at the time of the procedure

== ENCOUNTER 2017-01-03 21:28 | Inpatient (IN) | payer MEDICARE, MEDICAID ==
[~2017-01-03] VITALS: Ht 167.6 cm; Wt 65.9 kg
[~2017-01-03 21:28] MED LIST changes: +ACET-654 PO; +ALBU17IN INH; +ALL10TAB27 PO; +ARTI99.0 OU; +B-12100010 PO; +BENZ100C5 PO; +CALCTAB68 PO; +CALTCHW5 PO; +CEFD300CAP PO; +CYCL5TA PO; +DEXT75EL PO; +FISH1000 PO; +FLON1SPR; +GUAI1SYP8 PO; +HYDR-3713 PO; +IMOD2TAB16 PO; +LEVO125T41 PO; +LIDO1CRE14 TOP; +LOSA50TA20 PO; +MUCI600T34 PO; +ONDA1TAB15 PO; +PRAV40TA2 PO; +PROC10TA PO; +REFROIN OU; +RENATAB5 PO; +RENV2TAB PO; +SIME80TA PO; +SODI15SS PO; +VITA10002 PO
[2017-01-03] MEDS ORDERED: ACETAMINOPHEN 325 MG TAB PO ONE (22:00)
[2017-01-03] MEDS ORDERED: METOCLOPRAMIDE INJ 10MG/2ML VIAL (J2765) As Ordered ONE (23:29)
[2017-01-03] MEDS ORDERED: METOCLOPRAMIDE INJ 10MG/2ML VIAL (J2765) IV ONE (23:30)
[2017-01-04 00:02] LABS: ALBUMIN 2.9 GM/DL (3.2-5.2); ALBUMIN/GLOBULIN RATIO 0.76 (1.00-1.93); BILIRUBIN,DIRECT 0.1 MG/DL (0.0-0.2); BILIRUBIN,TOTAL 0.8 MG/DL (0.2-1.0); CALCIUM LEVEL 9.2 MG/DL (8.8-10.2); CREATININE FOR GFR 4.09 MG/DL (0.55-1.02); GLOMERULAR FILTRATION RATE 11.6 (>45); POTASSIUM SERUM 3.7 MEQ/L (3.5-5.1); TOTAL PROTEIN 6.7 GM/DL (6.4-8.2)
[2017-01-04 00:07] LABS: WHITE BLOOD COUNT 13.4 K/mm3 (4.0-10.0)
[2017-01-04 00:08] LABS: MEAN CORPUSCULAR HGB CONC 31.8 g/dl (32.0-36.5); MEAN CORPUSCULAR VOLUME 91.3 fl (80.0-96.0); PLATELET COUNT, AUTOMATED 201 k/mm3 (150-450); RED CELL DISTRIBUTION WIDTH 19.2 % (11.5-14.5)
[2017-01-04 00:42] LABS: NUCLEATED RED BLOOD CELL 1 % (0-0)
[2017-01-04 00:45] LABS: ANISOCYTOSIS 2+
[2017-01-04 00:46] LABS: POLYCHROMASIA 2+
[2017-01-04] MEDS ORDERED: NS 500 ML IV SCH (01:51)
[2017-01-04] MEDS ORDERED: ONDANSETRON 4MG/2ML VIAL (J2405) IV PRN (02:00)
--- NOTE | 2017-01-04 02:14 | PHACANCOPD ---
PHARMACY VANCOMYCIN DOSING Pt Demographics Demographics Patient Age:66 , Weight: , Gender: female Adjusted Body Weight Date: 01/04/17, Adjusted Body Weight: [62.8] Kg Events Past 24 Hours Events Past 24 Hours: NO: Change in CrCl, Dialysis, Diuretic Therapy, Elevation in WBC, Fever, Other, Pending Diagnostics, Pending Procedures Vancomycin Vancomycin Target Ranges: 15-20 mcg/ml Vancomycin Load Y/N: Yes Load Dose Date Time Vancomycin Load Dose: 1000MG Date: 01-04 Time: 0300 Vancomycin Dose Date: 01/04/17. Current Vancomycin Dose: Intermittent Dosing?: Yes Labs Labs Item Value Date Time White Blood Count 13.4 K/mm3 H 01/03/170 Creatinine 4.09 MG/DL H 01/03/17 225 Vital Signs Label Value Date Time Patient Temperature 100.4 degrees F 01/04/17 011 Temperature Source Oral 01/04/17 011 Micro Microbiology 01/03/17 Blood Culture, Received Pending 01/03/17 Respiratory Virus Panel (PCR) ([facility]), Received Pending Creatinine Clearance Date:01/04/17. Creatinine Clearance: [13.5 ON HD]. Pending Labs Random -17 @0600 Assessment and Plan Maintaining Current Dose?: Yes Reason for dose change: No Dose Change Pharmacist Note Pharmacist Note Date: 01/04/17. Pharmacist note:Intermittent Dosing per levels with first random level 01-05 in am. Will continue to monitor and make adjustments as needed. [facility] Jan 04, 2017 02:13
[2017-01-04] MEDS ORDERED: DEXT75EL PO (02:28)
[2017-01-04] MEDS ORDERED: BENZ100C5 PO (02:28)
[2017-01-04] MEDS ORDERED: POLY0.05 OU (02:28)
[2017-01-04] MEDS ORDERED: GUAI1TAB PO (02:28)
[2017-01-04] MEDS ORDERED: ONDA1TAB15 PO (02:28)
[2017-01-04] MEDS ORDERED: PRED5TA PO (02:28)
[2017-01-04] MEDS ORDERED: CEFD1CAP8 PO (02:28)
[2017-01-04] MEDS ORDERED: METR500T10 PO (02:28)
[2017-01-04] MEDS ORDERED: VANCOMYCIN HCL 1,000 MG, VIAL MATE ADAPTER 1 EACH in D5W 250 ML IV ONE (03:00)
[2017-01-04 03:23] VITALS: BP 117/58
[2017-01-04] MEDS: MEROPENEM INJ 500 MG in D5W MINI-BAG PLUS 100 ML IV SCH ×2 (04:44→16:50)
[2017-01-04] MEDS ORDERED: POLYVINYL ALCOHOL OPHTH SOLN 15 ML(LIQUITEARS) OU PRN (05:15)
[2017-01-04] MEDS ORDERED: ALBUTEROL 90 MCG/ACT 8GM HFA INHALER INH PRN (05:15)
[2017-01-04] MEDS ORDERED: SIMETHICONE 80 MG CHEW TAB PO PRN (05:15)
[2017-01-04] MEDS ORDERED: EMLA CREAM 5GM (LIDOCAINE/PRILOCAINE) TOP SCH (05:15)
[2017-01-04] MEDS ORDERED: CYCLOBENZAPRINE 5MG TABLET PO PRN (05:15)
[2017-01-04] MEDS: LEVOTHYROXINE 0.125 MG TAB (125 MCG) PO SCH (06:23)
[2017-01-04] MEDS: HEPARIN SOD (PORCINE) 5000 UNITS/ML VIAL SC SCH ×3 (06:23→21:46)
[2017-01-04] MEDS: ACETAMINOPHEN TAB 650MG DOSE (2X325MG) PO PRN (07:27)
[2017-01-04 08:00] VITALS: BP 133/60
[2017-01-04] MEDS: FLUTICASONE HFA 110 MCG 12 GM INHALER (FLOVENT) INH SCH ×2 (08:25→20:37)
--- NOTE | 2017-01-04 08:33 | REP ---
CHEST X-RAY: Two views. HISTORY: Cough. COMPARISON STUDY: December 27, 2016. FINDINGS: There is a large triangular infiltrate in the left apex with mild left apical pleural thickening. This is unchanged from the comparison radiograph. Some mild apical pleural thickening is seen on the right. There is a nodule in the right lung base visible on today's radiograph measuring 1.5 cm. This is seen on recent CT and recent radiographs. No other pulmonary nodule is visible radiographically. The pleural angles are sharp. Upper lumbar spine surgical fusion hardware is seen in place. There is diffuse osteopenia. Heart size is normal. IMPRESSION: Mass versus infiltrate left apex unchanged. 1.5 cm nodule right base unchanged. No new infiltrate. Signed by Reynaldo Alcala MD 01/04/2017 05:19 P
[2017-01-04] MEDS: PANTOPRAZOLE 40MG TAB (PROTONIX) PO SCH (09:22)
[2017-01-04] MEDS: LACTOBACILLUS ACIDOPHILUS CAP (BACID) PO SCH (09:22)
[2017-01-04] MEDS: METOPROLOL TART 50 MG TAB PO SCH ×2 (09:22→21:47)
[2017-01-04] MEDS ORDERED: VANCOMYCIN INTERMITTENT/PULSE DOSING BY CLINICAL PHARMACIST PER DOSING PROTOCOL XX SCH (11:00)
[2017-01-04] MEDS: TIAGABINE 4 MG PO SCH (11:52)
--- NOTE | 2017-01-04 11:59 | IPNPDOC ---
Subjective Date Seen The patient was seen on 01/04/17. Subjective Chief Complaint/HPI The patient is a 66-year-old female admitted with a reason for visit of Fever, Lung Mass,Pna,Vomiting. Events since last encounter Admitted overnight for fever, pneumonia. Patient states coughing episode then developed fever, chills. Also experienced diarrhea x 6 episodes in a small time frame. This occurred at HD. Was sent home, states started to feel poorly and came in to ED. Admitted by hospitalist service. States today symptoms improved, continues with cough and wheezing. Constitutional: Reports: Chills, Fever ENT: Denies: Dysphagia, Ear Pain, Head Aches Skin: Denies: Breakdown, Lesions, Rash Pulmonary: Reports: Cough, Dyspnea Cardiovascular: Denies: Chest Pain, Palpitations Gastrointestinal: Reports: Diarrhea, Denies: Abdominal Pain, Nausea, Vomiting Genitourinary: Denies: Dysuria, Frequency, Incontinence Objective Physical Examination General Exam: Positive: Alert, No Acute Distress ENT Exam: Positive: Atraumatic, Mucous membr. moist/pink, Pharynx Normal Neck Exam: Positive: Supple, Negative: JVD, thyromegaly Chest Exam: Positive: Normal air movement, Wheezing (throughout) Heart Exam: Positive: Normal S1, Normal S2, Rate Normal, Regular Rhythm, Negative: Murmurs, Rubs Abdomen Exam: Positive: Normal bowel sounds, Soft, Negative: Hepatospenomegaly, Tenderness Extremity Exam: Positive: Normal pulses, Negative: Clubbing, Cyanosis, Edema Skin Exam: Positive: Nl turgor and temperature, Negative: Breakdown, Rash Psych Exam: Positive: Mental status NL, Mood NL, Oriented x 3 Assessment /Plan Problems (1) Pneumonia Status: Acute Problem Text: On Vancomycin and Meropenem D#1 Solumedrol 80 mg IV q 8 hrs. Acapella, nebs ordered. (2) Fever Status: Acute Problem Text: Tylenol prn. Probably respiratory in cause. (3) AV fistula Status: Chronic Problem Text: + thrill and bruit. No erythema or warmth. (4) Diarrhea Status: Acute Problem Specific Plan: Monitor Clinically Problem Text: Hx of IBS. recent GI panel negative. Monitor. (5) End stage renal disease on dialysis Status: Chronic Problem Specific Plan: Consult Specialist Problem Text: Nephrology aware and following patient. HD planned for tomorrow. (6) Lung mass Status: Acute Problem Text: Pulmonology aware, following patient. Recent bronchoscopy and Ct guided biopsy with organizing pneumonia. recommended IV abx for 6 weeks. (7) Hypothyroid Status: Chronic Response to Treatment: Stable Problem Specific Plan: Monitor Clinically (8) Lung nodule seen on imaging study Status: Acute Plan/VTE VTE Prophylaxis Ordered?: Yes (Heparin) VS, I&O, 24H, Fishbone Vital Signs/I&O Vital Signs Date Time Temp Pulse Resp B/P Pulse Ox O2 Delivery O2 Flow Rate FiO2 01/04/17 09:22 96 133/66 01/04/17 09:00 99.1 01/04/17 08:00 22 96 Nasal Cannula 2.0 Laboratory Data 24H LABS Laboratory Tests 2 01/03/17 22:50: Aspartate Amino Transf (AST/SGOT) 22, Alanine Aminotransferase (ALT/SGPT) 13, Alkaline Phosphatase 76, Total Bilirubin 0.8, Direct Bilirubin 0.1, Albumin 2.9L , Albumin/Globulin Ratio 0.76L, Amylase Level 41, Anion Gap 15, Anisocytosis 2+ , Atypical Lymphocytes 1, White Blood Count 13.4H, Red Blood Count 3.83L, Hemoglobin 11.1L, Hematocrit 35.0L, Mean Corpuscular Volume 91.3, Mean Corpuscular Hemoglobin 29.0, Mean Corpuscular Hemoglobin Concent 31.8L, Red Cell Distribution Width 19.2H, Platelet Count 201, Neutrophils (%) (Auto) , Lymphocytes (%) (Auto) , Monocytes (%) (Auto) , Eosinophils (%) (Auto) , Basophils (%) (Auto) , Neutrophils # (Auto) , Lymphocytes # (Auto) , Monocytes # (Auto) , Eosinophils # (Auto) , Basophils # (Auto) , Calcium Level 9.2, Giant Platelets , Glomerular Filtration Rate 11.6L, Lactic Acid (Sepsis) 1.8, Large Unclassified Cells # , Large Unclassified Cells % , Lymphocytes (Manual) 13L, Monocytes (Manual) 3, Neutrophils 83H, Nucleated Red Blood Cells 1H, Platelet Estimate NORMAL, Polychromasia 2+, Total Protein 6.7 CBC/BMP Laboratory Tests 01/03/17 22:50 Red Blood Count 3.83 L, Mean Corpuscular Volume 91.3, Mean Corpuscular Hemoglobin 29.0, Mean Corpuscular Hemoglobin Concent 31.8 L, Red Cell Distribution Width 19.2 H, Neutrophils (%) (Auto) , Lymphocytes (%) (Auto) , Monocytes (%) (Auto) , Eosinophils (%) (Auto) , Basophils (%) (Auto) , Neutrophils # (Auto) , Lymphocytes # (Auto) , Monocytes # (Auto) , Eosinophils # (Auto) , Basophils # (Auto) Microbiology Microbiology 01/03/17 Blood Culture, Received Pending 01/03/17 Respiratory Virus Panel (PCR) ([facility]) - Final, Complete Essence Branham [facility] Jan 04, 2017 11:59
[2017-01-04 12:00] VITALS: BP 121/89
[2017-01-04] MEDS ORDERED: (RENVELA) SEVELAMER **CARBONate** 800 MG TAB PO SCH (12:00)
[2017-01-04] MEDS ORDERED: ALBUTEROL SULFATE 2.5 MG/0.5 ML INH NEB SOLN NEB PRN (12:00)
[2017-01-04] MEDS ORDERED: predniSONE 5 MG TAB PO ONE (12:00)
[2017-01-04] MEDS: methylPREDNISolone INJ 125 MG/2 ML VIAL (J2930) IV SCH ×2 (12:09→21:47)
[2017-01-04] MEDS: IPRATROPIUM 0.5MG/ALBUTEROL 2.5MG INH SOL UD 3ML (DUONEB)(J7620) NEB SCH ×2 (14:22→20:33)
[2017-01-04 16:00] VITALS: BP 122/57
[2017-01-04 18:54] VITALS: BP 141/60
--- NOTE | 2017-01-04 19:41 | CR ---
DATE OF CONSULTATION: 01/04/2017 REQUESTING PHYSICIAN: Hospitalist service. REASON FOR CONSULTATION: Shortness of breath, fever and diarrhea in this lady with end-stage renal disease. HISTORY OF PRESENT ILLNESS: Ms. Jim is a 66-year-old female who was admitted to [facility] a couple of weeks ago with cough, shortness of breath and fever. She was treated with antibiotics. She was found to have a mass in her right upper lung and a biopsy was attempted both endobronchially and CT-guided. However, it did not show any malignancy. The patient was discharged to assisted living facility just yesterday. She did have hemodialysis in outpatient where she had low-grade fever. However, after dialysis, she had shivering, chills, high-grade fever, vomiting and diarrhea, due to which she was sent back to emergency room and has been admitted. A nephrology consultation was requested and the patient is seen this morning in the emergency room. PAST MEDICAL AND SURGICAL HISTORY: Significant for: 1. End-stage renal disease secondary to Goodpasture syndrome, on maintenance hemodialysis Sunday, Sunday and Sunday schedule. 2. History of hypertension. 3. History of gastroesophageal reflux disease. 4. History of irritable bowel syndrome. 5. History of recurrent Clostridium (C.) difficile colitis. 6. History of supraventricular tachycardia. 7. History of pulmonary nodules. 8. History of severe osteoporosis. 9. History of chronic obstructive pulmonary disease (COPD). Past surgical history is significant for hysterectomy, bilateral salpingo-oophorectomy, thyroidectomy, back surgery, arteriovenous (AV) fistula creation in right arm, recent angioplasty with stent placement in her fistula for a pseudoaneurysm, and history of fecal transplant. ALLERGIES: The patient has allergy to ASPIRIN, CAFFEINE and BUTALBITAL. MEDICATIONS: As an outpatient her medications include: - Flexeril 5 mg three times a day as needed for back pain - Bentyl 20 mg four times a day for gastrointestinal (GI) symptoms - Synthroid 0.125 mg daily - metoprolol 50 mg daily - losartan 50 mg daily - oxycodone as needed for pain - Protonix 40 mg daily - pravastatin 40 mg daily - Renvela has been recently stopped - Gabitril 4 mg daily PERSONAL AND SOCIAL HISTORY: The patient is currently living in assisted living facility. She does not smoke or drink. FAMILY HISTORY: Is negative for end-stage renal disease. REVIEW OF SYSTEMS: Generally the patient does not feel very well. She has persistent cough and shortness of breath. She reports vomiting and diarrhea last night along with fever and chills. Head and neck is unremarkable. She denies any nosebleeds. Endocrine system is negative for diabetes. She does have hypothyroidism. Cardiovascular system is negative for known coronary artery disease. She denies any chest pain at present. Respiratory system is as per history of present illness. She does have cough without hemoptysis. Two attempts were made at biopsy of right upper lobe lung mass. However, they were both unsuccessful and only lung tissue and pneumonia was diagnosed. GI system is significant for vomiting and diarrhea. She denies any abdominal pain or rectal bleeding. Genitourinary () system is significant for end-stage renal disease. She has no urine output. Psychosocial system is negative for depression or anxiety. Neurological system is negative for seizures. Musculoskeletal system is significant for chronic back pain and osteoporosis. PHYSICAL EXAMINATION: GENERAL: At the time of my visit in the emergency room, the patient is lying in the bed with head end elevated at about 45 degrees. VITAL SIGNS: Temperature was 101.6 degrees Fahrenheit this morning, heart rate 96 per minute and respiratory rate 22 per minute. Blood pressure 133/60 mmHg and oxygen saturation 96% on 2 liter O2. HEENT: Head is atraumatic. Ears, nose and throat are unremarkable. She is using oxygen via nasal cannula. She has no oral thrush or ulcers. NECK: Neck is supple and without jugular venous distention (JVD) or thyroid enlargement. CARDIORESPIRATORY: Heart sounds are regular and lungs with bilateral rhonchi. ABDOMEN: Soft and nontender. Bowel sounds are normal. There is no palpable organomegaly. EXTREMITIES: Have no cyanosis or clubbing. She has a right arm AV fistula with dressing intact from her dialysis treatment yesterday. SKIN: Has no rash or ulcers. NEUROLOGIC: She is at her baseline mentation. She is awake, alert and oriented times three. LABORATORY DATA: WBC count is 13.4, hemoglobin 11.1 and hematocrit 35.0. Sodium 141 and potassium 3.7. BUN 18 and creatinine 4.09. Lactic acid level 1.8, total protein 6.7 and albumin 2.9. PROBLEMS: 1. End-stage renal disease. The patient did have her regular hemodialysis treatment yesterday and she completed her treatment. She will be scheduled for next dialysis tomorrow. 2. Diarrhea and vomiting. She does have history of C. difficile colitis. However, her stool was negative for C. difficile just recently. I suggest to continue with probiotics. At present her diarrhea seems to be slightly better. We can continue with symptomatic treatment. 3. Pneumonia and cough. The patient is currently on meropenem which is appropriate. My feeling is that she has pulmonary nodules and a large mass in her right lung. I suggest to consider another attempt for a CT-guided biopsy. 4. Hypertension. Blood pressure is reasonably well controlled and suggest to continue with her current antihypertensive medications. 5. Anemia. Her anemia is mild and does not need any intervention at present. 6. Hyperparathyroidism. The patient has been off her Renvela due to low phosphorus. I will stop her Renvela for now. 7. Right arm arteriovenous (AV) fistula pseudoaneurysm. The patient had her aneurysm repaired with a stent just two days ago. At present, her AV fistula looks stable and no further intervention is indicated. I thank you for involving me in the care of Ms. Jim. I will follow her along with you. SOL
[2017-01-04 20:00] VITALS: BP 119/64
[2017-01-04] MEDS: FLUTICASONE PROP 0.05% NASAL SPRAY 16 GM (FLONASE) SCH (21:46)
[2017-01-04] MEDS: DICYCLOMINE 10 MG CAP PO SCH (21:46)
[2017-01-04] MEDS: PRAVASTATIN 20 MG TAB PO SCH (21:47)
[2017-01-05] VITALS: BP 114/54
[2017-01-05] MEDS: IPRATROPIUM 0.5MG/ALBUTEROL 2.5MG INH SOL UD 3ML (DUONEB)(J7620) NEB SCH ×4 (01:44→19:38)
[2017-01-05 04:00] VITALS: BP 132/67
[2017-01-05] MEDS: MEROPENEM INJ 500 MG in D5W MINI-BAG PLUS 100 ML IV SCH ×2 (04:58→16:08)
[2017-01-05] MEDS: methylPREDNISolone INJ 125 MG/2 ML VIAL (J2930) IV SCH ×3 (04:59→21:00)
[2017-01-05] MEDS: LEVOTHYROXINE 0.125 MG TAB (125 MCG) PO SCH (04:59)
[2017-01-05] MEDS: HEPARIN SOD (PORCINE) 5000 UNITS/ML VIAL SC SCH ×3 (04:59→21:00)
[2017-01-05 06:13] LABS: MEAN CORPUSCULAR HEMOGLOBIN 19.7 pg (27.0-33.0); MEAN CORPUSCULAR HGB CONC 20.5 g/dl (32.0-36.5); MEAN CORPUSCULAR VOLUME 95.7 fl (80.0-96.0); PLATELET COUNT, AUTOMATED 210 k/mm3 (150-450); RED CELL DISTRIBUTION WIDTH 18.3 % (11.5-14.5); WHITE BLOOD COUNT 9.4 K/mm3 (4.0-10.0)
[2017-01-05] MEDS: DICYCLOMINE 10 MG CAP PO SCH ×4 (06:20→21:01)
[2017-01-05] MEDS: PANTOPRAZOLE 40MG TAB (PROTONIX) PO SCH (06:20)
[2017-01-05] MEDS: LOPERAMIDE 2 MG CAP PO PRN (06:20)
[2017-01-05] MEDS: LACTOBACILLUS ACIDOPHILUS CAP (BACID) PO SCH (06:20)
[2017-01-05 06:22] LABS: ALBUMIN 2.3 GM/DL (3.2-5.2); ALBUMIN/GLOBULIN RATIO 0.49 (1.00-1.93); BILIRUBIN,TOTAL 0.7 MG/DL (0.2-1.0); CALCIUM LEVEL 8.5 MG/DL (8.8-10.2); CREATININE FOR GFR 7.1 MG/DL (0.55-1.02); GLOMERULAR FILTRATION RATE 6.2 (>45); VANCOMYCIN RANDOM 16.9 UG/ML
[2017-01-05 06:52] LABS: ANISOCYTOSIS 2+
[2017-01-05 06:53] LABS: POIKILOCYTOSIS 1+; SCHISTOCYTES 1+
[2017-01-05 08:00] VITALS: BP 136/67
[2017-01-05] MEDS: FLUTICASONE HFA 110 MCG 12 GM INHALER (FLOVENT) INH SCH ×2 (09:00→19:38)
--- NOTE | 2017-01-05 10:40 | PHACANCOPD ---
PHARMACY VANCOMYCIN DOSING Pt Demographics Demographics Patient Age:66 , Weight:66.500 , Gender: female Adjusted Body Weight Date: 01/04/17, Adjusted Body Weight: [62.8] Kg Events Past 24 Hours Events Past 24 Hours: NO: Change in CrCl, Dialysis, Diuretic Therapy, Elevation in WBC, Fever, Other, Pending Diagnostics, Pending Procedures Vancomycin Vancomycin Target Ranges: 15-20 mcg/ml Vancomycin Load Y/N: Yes Load Dose Date Time Vancomycin Load Dose: 1000MG Date: 01-04 Time: 0300 Vancomycin Dose Date: 01/05/17. Current Vancomycin Dose: [750MG HD] Date: 01/04/17. Current Vancomycin Dose: Intermittent Dosing?: Yes Labs Micro Microbiology 01/03/17 Blood Culture - Preliminary, Resulted No growth after 24 hours . All specim... 01/03/17 Respiratory Virus Panel (PCR) ([facility]) - Final, Complete Creatinine Clearance Date:01/05/17. Creatinine Clearance: [7.8ML/MIN]. Date:01/04/17. Creatinine Clearance: [13.5 ON HD]. Pending Labs Random 03-17 @0600 Assessment and Plan Maintaining Current Dose?: No Reason for dose change: Other Pharmacist Note Pharmacist Note Date: 01/05/17. Pharmacist note: Random came back today @ 5:30 and creatinine clearance dropped to 7.8ml/min. Pt prior dosing of 750mg hd will be restarted tonight after HD. Date: 01/04/17. Pharmacist note:Intermittent Dosing per levels with first random level 03-17 in am. Will continue to monitor and make adjustments as needed. [facility] Jan 05, 2017 10:40
[2017-01-05] MEDS ORDERED: HEPARIN 1,000 UNITS/ML 10ML VIAL (FOR RADIOLOGY& DIALYSIS ONLY) IV ONE (11:45)
[2017-01-05] MEDS ORDERED: LIDOCAINE 1% SDV 5 ML VIAL SQ ONE (11:45)
[2017-01-05] MEDS ORDERED: predniSONE 5 MG TAB PO SCH (12:00)
[2017-01-05] MEDS: TIAGABINE 4 MG PO SCH (12:00)
--- NOTE | 2017-01-05 12:36 | HPE ---
DATE OF ADMISSION: 01/04/2017 CHIEF COMPLAINT: Cough and vomiting. HISTORY OF PRESENT ILLNESS: Ms. Jim is a 66-year-old female who presents to [facility]'s emergency department with cough and vomiting. Patient is a resident of [facility]. Past medical history significant for Goodpasture disease, irritable bowel syndrome, supraventricular tachycardia, dyslipidemia, hypertension, secondary hypothyroidism, recurrent Clostridium difficile infections, chronic obstructive pulmonary disease, obstructive sleep apnea without CPAP, history of cauda equina syndrome, osteonecrosis of the jaw, allergic rhinitis, gastroesophageal reflux disease, iron deficiency anemia, vitamin D deficiency, intercostal neuritis, arteriovenous fistula pseudoaneurysm , grade 1 diastolic congestive heart failure, diverticulosis, colonic polyps, necrotizing pneumonia. HISTORY OF PRESENT ILLNESS: Patient states that she went to dialysis after discharge from the hospital on 01/03/2017 and subsequently developed chills, cough with vomiting significant for white foam. She denies blood. She has vomited at least five times with the most being at least a cup full. Increased watery diarrhea with at least five to six episodes that is non-mucoid and non-bloody. She states that the diarrhea is different than the diarrhea associated with the irritable bowel syndrome. She admits to intermittent night sweats since her recent diagnosis of pneumonia. She is weak secondary to vomiting as well as nauseous. She admits to decreased appetite. Admits to fever. Patient reports that at baseline, she is able to perform activities of daily living (ADL)s and does not have a cough, chills, or vomiting. Denies lightheadedness, diffuse body wide pain, dizziness, confusion, chest pain , shortness of breath, paroxysmal nocturnal dyspnea, abdominal pain, sore throat, headache, acute changes to vision and/or hearing (including tinnitus, blurry vision, diplopia, acute transient vision loss), melena, hematochezia, numbness and/or tingling, swelling, hematuria (patient produces very low urine secondary to dialysis). Patient's most recent hospitalization was on 12/22/2016 to 01/03/2017. She presented at that time with left sided rib pain with chills and night sweats for a week. Temperature at that time was 100.2. CT of the chest was completed and demonstrated a 6.6 cm mass in the left upper lobe with small interstitial infiltrates as well as a smaller mass noted in the right apex and multiple right lower lobe pulmonary nodules. Patient was admitted and nephrology and pulmonology were consulted. During hospitalization, patient had bronchoscopy as well as CT guided biopsy. Both revealed negative findings, but was positive for necrotizing pneumonia. Patient was placed on intravenous Zosyn and vancomycin. She was switched to oral Omnicef and Flagyl. She was placed on tapering dose of prednisone. During hospitalization, she did develop pseudoaneurysm of the right arteriovenous fistula. Fistulogram with fistuloplasty was completed. Patient was determined stable enough to discharge. She was instructed to followup with primary care provider in 5-7 days as well as followup with pulmonology and nephrology. She was advised to follow a renal 2 gram sodium diet with fluid restrictions. Hospitalist service was consulted on this admission and patient was admitted for further medical management. PAST MEDICAL HISTORY: 1. Goodpasture disease 2. Irritable bowel syndrome 3. Secondary hypothyroidism 4. Recurrent Clostridium difficile infections 5. Chronic obstructive pulmonary disease 6. Supraventricular tachycardia 7. Hypertension 8. Grade 1 diastolic congestive heart failure 9. Gastroesophageal reflux disease 10. Osteonecrosis of the jaw 11. Allergic rhinitis 12. Iron deficiency anemia 13. Vitamin D deficiency 14. Intercostal neuritis 15. Arterial venous fistula pseudoaneurysm 16. History of cauda equina syndrome 17. Obstructive sleep apnea without CPAP 18. Diverticulosis 19. Colonic polyps 20. Necrotizing pneumonia 21. Hiatal hernia MEDICATIONS: - lidocaine/prilocaine cream 2.5-2.5% one dose topical three times a week - Flonase allergy relief 50 mcg per two sprays nasally daily at bedtime - Refresh PM ointment one dose in both eyes daily at bedtime - Steph-Yovani one tablet by mouth daily - calcium/vitamin D (calcium 600 plus D) 600/400 mg in a unit, one tablet by mouth twice daily - cefdinir 300 mg cap by mouth twice a day - cefatrizine HCL 10 mg tab by mouth daily at bedtime - cyanocobalamin 1000 mcg by mouth daily at bedtime - dicyclomine 20 mg by mouth four times daily - fish oil 0.5 mg by mouth daily - fluticasone propionate one puff inhaled twice a day - guaifenesin 600 mg by mouth twice daily - lactobacillus acidophilus one tab by mouth daily - levothyroxine sodium 125 mcg by mouth daily - Losartan potassium 50 mg by mouth daily 2 p.m. - metoprolol tartrate 50 mg by mouth daily four times a week - metronidazole 500 mg by mouth every 6 hours - pantoprazole 40 mg by mouth twice a day - pravastatin 40 mg by mouth daily at bedtime - prednisone 5 mg as directed - sevelamer carbonate 800 mg by mouth twice daily - tiagabine hydrochloride 4 mg by mouth daily - vitamin D 50,000 units by mouth monthly - acetaminophen 650 mg every 4 hours as needed - acetaminophen/hydrocodone one tab by mouth every 4 hours as needed - albuterol sulfate two puffs inhaled every 6 hours as needed - benzonatate 100 mg by mouth twice daily as needed - cyclobenzaprine 5 mg by mouth three times daily as needed - dextromethorphan 5 mL by mouth every 6 hours as needed - loperamide 2 mg by mouth every 3 hours as needed - ondansetron 4 mg every 6 hours as needed - oxycodone/acetaminophen one tab by mouth every 8 hours as needed - polyvinyl alcohol two drops in each eye every 2 hours as needed - prochlorpemazine 10 mg by mouth every 6 hours as needed - simethicone 80 mg by mouth four times daily as needed - sodium polystyrene sulfonate 15 grams by mouth three times a week as needed ALLERGIES: BUTALBITAL - makes her hyper-awakeful SURGICAL HISTORY: 1. History of colonoscopy 2. Fecal microbiota transplant 3. Kyphoplasty 4. Laminectomy at L1 and L2 5. Arthrodesis of T12-L1, L1-L2, L2-L3, L3-L4 6. Bronchoscopy with transbronchial biopsy 7. Fistulogram with fistuloplasty 8. Total abdominal hysterectomy 9. Bilateral salpingo-oophorectomy 10. Appendectomy 11. Thyroidectomy FAMILY HISTORY: 1. Mother with two episodes of breast cancer, the second resulting in a mastectomy. 2. Father with Parkinson's disease. 3. Two brothers. 4. Two half sisters. SOCIAL HISTORY: Patient states that she is a former smoker and smoked approximately one pack per day for 30 plus years. Denies alcohol and elicit drugs, denies recent travel. Is and is a resident at [facility]. Denies pets in the home. Denies environmental exposures. 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 REVIEW OF SYSTEMS: Constitutional: Admits to chills, fever, intermittent night sweats since her diagnosis of necrotizing pneumonia, weakness secondary to vomiting. Eyes: Denies blurriness, diplopia, acute transient vision loss. ENT: Denies epistaxis, headaches, sinus congestion, sore throat. Skin: Denies lesions and/or rashes. Pulmonary: Admits to cough: Denies shortness of breath, paroxysmal nocturnal dyspnea, dyspnea, pleuritic chest pain. Cardiovascular: Denies chest pain, edema, lightheadedness, orthopnea, palpitations, paroxysmal nocturnal dyspnea. Gastrointestinal: Admits to nausea, vomiting white foam that is non-bloody for at least five episodes with the most to be at least a cup full; denies abdominal pain, constipation, diarrhea, hematochezia, melena. Genitourinary: Admits to decreased urination secondary to dialysis (states that in the last year, she has produced urine approximately twice). Hematologic: Denies bruising. Musculoskeletal: Denies back pain and/or muscle pain. Neurological: Admits to weakness; denies confusion and numbness. PHYSICAL EXAMINATION: Vital signs: Temperature 100.4, heart rate 100, respiratory rate 20, blood pressure 100/52, pulse oximetry 87% on room air. General: Pleasant 66-year-old female resting comfortably on the stretcher in the emergency department holding area, does not appear to be in any amount of distress, awake and alert. HEENT: Atraumatic, pupils equal, round, reactive to light, extraocular muscles intact, sclera appear nonicteric, with spectacles, mucous membranes, appear pink and moist. Neck: Supple, trachea midline, no lymphadenopathy appreciated. Lungs: Clear to auscultation bilaterally, normal inspiratory and expiratory phase, no wheezes, rales, or rhonchi appreciated. Heart: Regular rate and rhythm, borderline tachycardia, normal S1, S2. No murmurs, rubs, clicks appreciated. Abdomen: Soft, flat, nontender, nondistended, bowel sounds appreciated in all four quadrants. Extremities: Peripheral pulses appreciated bilaterally in upper and lower extremities, no appreciable edema noted, skin is warm to the touch, no visible lesions noted on lower extremities, bandaged area noted on right upper extremity proximal to the antecubital region that appears clean, dry and intact secondary to fistulogram with fistuloplasty that was performed at prior admission. Neurologic: Cranial nerves II through XII appear grossly intact, patient is sleepy and nods off during examination (at time of evaluation, it was 3 a.m.). LABORATORY DATA: White blood cells 13.4, hemoglobin 11.1, hematocrit 35, platelets 201. Sodium 141, potassium 3.7, chloride 97, bicarbonate 29, BUN 18, creatinine 4.09, glucose 136. Lactic acid 1.8. MICROBIOLOGY: Respiratory panel negative. Blood culture pending. IMAGING: Chest x-ray on 01/03/2017 notes mass versus infiltrate left apex, unchanged. 1.5 cm nodule right base, unchanged. No new infiltrate. ASSESSMENT: This is a 66-year-old female who initially presented with cough and vomiting and subsequently found to have fever with leukocytosis which could be due to underlying pneumonia with a possible gastrointestinal etiology (bacterial versus viral). PLAN: 1. Persistent pneumonia. Place patient on vancomycin and meropenem. Obtain sputum culture with gram stain. Continue patient on home breathing treatment regimens. Monitor with daily labs. 2. Diarrhea: Obtain gastrointestinal panel. Empirically treat patient with vancomycin and meropenem. Initiate intravenous fluids. Keep patient n.p.o. for the time being. Monitor daily labs. 3. Fever: Provide Tylenol. Monitor vital signs every 8 hours. Could possibly be likely due to patient's persistent pneumonia. 4. Nausea and vomiting: Provide patient symptomatic relief with Zofran. Keep patient n.p.o. for the time being. Monitor electrolytes. 5. Goodpasture disease: Consult with nephrology. 6. Deep venous thrombosis (DVT) prophylaxis: Heparin. DISPOSITION: Admit the patient to the progressive care unit for an expected hospitalization course of approximately two nights. Attending will be Family Practice Service. Will consult nephrology. Will continue patient on all of her home medications for other chronic underlying medical conditions. My preceptor for this patient encounter was Dr. Felix Curry. The preceptor was physically present in the building during the encounter and was fully available. As needed, all aspects of the patient interview, examination, medical decision making process, and medical care plan development were reviewed and approved by the preceptor. The preceptor is aware and concurs with the plan as stated in the body of this note and will attest to such by his/her cosignature. I, Felix Curry, have both independently examined this patient as well as reviewed the documentation. I have discussed in detail with the resident the findings and plan of treatment as documented in the residents documentation. I will continue to follow the patient and offer further guidance to the patients care as necessary during this hospital stay. SOL
[2017-01-05 13:10] VITALS: BP 119/69
[2017-01-05 16:00] VITALS: BP 134/60
[2017-01-05] MEDS: CHECK TO SEE IF PATIENT IS RECEIVING DIALYSIS TODAY AND REFER TO THE VANCOMYCIN ORDER XX SCH (16:00)
[2017-01-05] MEDS: VANCOMYCIN HCL 750 MG, VIAL MATE ADAPTER 1 EACH in D5W 250 ML IV SCH (16:55)
[2017-01-05 20:10] VITALS: BP 108/59
[2017-01-05] MEDS ORDERED: SLF 3 ML SYR IV PRN (20:45)
[2017-01-05] MEDS: PRAVASTATIN 20 MG TAB PO SCH (21:01)
[2017-01-05] MEDS: SLF 3 ML SYR IV SCH (21:02)
[2017-01-05] MEDS: METOPROLOL TART 50 MG TAB PO SCH (21:02)
[2017-01-06 00:39] VITALS: BP 118/69
[2017-01-06] MEDS: FLUTICASONE PROP 0.05% NASAL SPRAY 16 GM (FLONASE) SCH ×2 (00:43→20:58)
[2017-01-06] MEDS: IPRATROPIUM 0.5MG/ALBUTEROL 2.5MG INH SOL UD 3ML (DUONEB)(J7620) NEB SCH ×4 (01:28→19:41)
[2017-01-06] MEDS: methylPREDNISolone INJ 125 MG/2 ML VIAL (J2930) IV SCH ×3 (04:50→20:58)
[2017-01-06] MEDS: MEROPENEM INJ 500 MG in D5W MINI-BAG PLUS 100 ML IV SCH ×2 (04:50→16:44)
[2017-01-06] MEDS: LEVOTHYROXINE 0.125 MG TAB (125 MCG) PO SCH (04:51)
[2017-01-06] MEDS: HEPARIN SOD (PORCINE) 5000 UNITS/ML VIAL SC SCH ×3 (04:51→20:58)
[2017-01-06] MEDS: SLF 3 ML SYR IV SCH ×3 (04:51→21:00)
[2017-01-06 05:26] VITALS: BP 126/61
[2017-01-06 05:38] LABS: BASO % 0.2 % (0.0-1.0); EOS % 0.4 % (0.0-3.0); LARGE UNSTAINED CELL # 0.1 K/mm3 (0.0-0.4); LARGE UNSTAINED CELL % 0.5 % (0.0-4.0); LYMPH # 0.5 K/mm3 (1.5-4.5); LYMPH % 4.9 % (24.0-44.0); MEAN CORPUSCULAR HEMOGLOBIN 28.6 pg (27.0-33.0); MEAN CORPUSCULAR HGB CONC 30.1 g/dl (32.0-36.5); MEAN CORPUSCULAR VOLUME 95.1 fl (80.0-96.0); MONO # 0.2 K/mm3 (0.0-0.8); MONO % 2.3 % (0.0-5.0); NEUTROPHILS % 91.7 % (36.0-66.0); PLATELET COUNT, AUTOMATED 165 k/mm3 (150-450); RED CELL DISTRIBUTION WIDTH 18.7 % (11.5-14.5); WHITE BLOOD COUNT 9.8 K/mm3 (4.0-10.0)
[2017-01-06 05:48] LABS: ALBUMIN 2.2 GM/DL (3.2-5.2); CALCIUM LEVEL 8.5 MG/DL (8.8-10.2); CREATININE FOR GFR 4.76 MG/DL (0.55-1.02); GLOMERULAR FILTRATION RATE 9.8 (>45); PHOSPHORUS LEVEL 4.5 MG/DL (2.5-4.9)
[2017-01-06] MEDS: FLUTICASONE HFA 110 MCG 12 GM INHALER (FLOVENT) INH SCH ×2 (07:15→19:49)
--- NOTE | 2017-01-06 07:24 | IPN ---
DATE: 01/05/2017 SUBJECTIVE: This is a 66-year-old female who was seen and examined in the dialysis room. Overnight, no longer reported episodes of fevers. She continues to report night sweats. Shortness of breath has improved. Still has cough, but no production. REVIEW OF SYSTEMS: Denies any chest pain, palpitations, nausea, vomiting, diarrhea, constipation. Had one loose bowel movement. No abdominal pain. OBJECTIVE: VITAL SIGNS: Blood pressure 136/67, heart rate 74, temperature 96.7, respiration rate 18, pulse oximetry 98% on 2 liters nasal cannula. Intake and output last 24 hours: 1055 input, output not documented. One bowel movement documented. Weight is 66.5 kg. PHYSICAL EXAM: GENERAL: Patient is lying in dialysis bed, comfortable, in no acute distress. She is alert, awake, oriented times three, pleasant and cooperative. HEENT: Normocephalic, atraumatic. Moist oral mucosa. Dentures in place. Wearing nasal cannula. No thrush or lesions appreciated. NECK: Supple, trachea midline, no jugular venous distention (JVD). CHEST: Symmetric chest rise, no accessory muscle use. Breath sounds diminished bilateral lung bases with occasional scattered rhonchi. HEART: Regular rate and rhythm. Normal S1, S2. There is a systolic murmur in the second intercostal border without radiating to the carotids. ABDOMEN: Soft, nontender, nondistended. Bowel sounds present. No guarding. No rebound. EXTREMITIES: No pedal edema. Pedal pulses present bilaterally. No cyanosis or clubbing. Right upper extremity with arteriovenous (AV) fistula in place, functioning well. SKIN: No obvious rash appreciated. NEUROLOGIC: Alert, awake, oriented times three. PSYCHIATRIC: Normal affect. LABORATORY DATA: WBC 9.4 improved from yesterday of 13.4, hemoglobin 10.1 from yesterday of 11.1, hematocrit 29, platelets 210. Neutrophils 92. Sodium 137, potassium 5, chloride 97, carbon dioxide 27, BUN 41, creatinine 7.1, glucose 210 , calcium 8.5, magnesium 2, total bilirubin 0.7. Liver profile normal. Albumin 2.3. Vancomycin level 16.7. Blood cultures negative after 24 hours. Respiratory syncytial virus panel (RSV) panel negative. Chest x-ray reports large triangular infiltrate of left apex with left apical pleural thickening unchanged. Nodule in the right lung base measuring 1.5 cm unchanged. No new infiltrate. MEDICATIONS: - meropenem 500 twice a day - Solu-Medrol 80 every 8 - vancomycin with HD - heparin 5000 units subcutaneous - Protonix 40 daily - Ventolin - Flovent - Bacid 1 tablet daily - Synthroid - Imodium - Lopressor 50 on non-dialysis days and 50 at bedtime - Pravachol - simethicone IMPRESSION: Ms. Jim is a 66-year-old female with history of Goodpasture disease recently discharged on 01/03/2017. Unfortunately started complaining of chills, fever, vomiting, diarrhea, and presented to the emergency department (ED) again for further evaluation. PLAN: 1. End-stage renal disease. Her regular dialysis days are Sunday, Sunday, Sunday. She is currently undergoing hemodialysis well without any issues. 2. Diarrhea and vomiting. This has since improved significantly compared to yesterday. Clostridium difficile culture was checked at last admission and was negative. Continue Bacid. If she develops worsening diarrhea, she will likely require repeat C. Difficile check. 3. Organizing pneumonia. She had multiple biopsies at the last admission indicating organizing pneumonia. She was sent home with Cefdinir. Unfortunately within less than 24 hours, developed worsening symptoms. Currently is on meropenem and vancomycin. Dr. Duong has reached out to primary team for consideration of repeat biopsy regarding this mass in her lung. 4. Hypertension. Blood pressure is reasonable at this time. Continue current medication, which includes Lopressor 50 mg non dialysis days and 50 mg at bedtime. 5. Anemia. Mild. Continue to monitor for now. No emergent transfusion needed at this time. 6. Hyperparathyroidism. Her phosphorus level was actually low at the time of discharge last visit. Will continue holding Renvela at this time. 7. Pseudoaneurysm. This is status post repair. My preceptor for this patient encounter was Dr. Iraida Duong. The preceptor was physically present in the building during the encounter and was fully available. As needed, all aspects of the patient interview, examination, medical decision making process, and medical care plan development were reviewed and approved by the preceptor. The preceptor is aware and concurs with the plan as stated in the body of this note and will attest to such by his cosignature. SOL
[2017-01-06 08:00] VITALS: BP 133/61
[2017-01-06] MEDS: LACTOBACILLUS ACIDOPHILUS CAP (BACID) PO SCH (09:18)
[2017-01-06] MEDS: DICYCLOMINE 10 MG CAP PO SCH ×4 (09:18→20:59)
[2017-01-06] MEDS: PANTOPRAZOLE 40MG TAB (PROTONIX) PO SCH (09:18)
[2017-01-06] MEDS: METOPROLOL TART 50 MG TAB PO SCH ×2 (09:19→20:59)
[2017-01-06] MEDS ORDERED: CEPACOL LOZENGE PO PRN (10:15)
--- NOTE | 2017-01-06 10:19 | IPNPDOC ---
Subjective Date Seen The patient was seen on 01/06/17. Subjective Chief Complaint/HPI The patient is a 66-year-old female admitted with a reason for visit of Fever, Lung Mass,Pna,Vomiting. Events since last encounter Continues to improve in symptoms. States cough continues, would like some medication to help. also c/o laryngitis/sore throat. Constitutional: Denies: Chills, Fever, Night Sweats Pulmonary: Reports: Cough, Dyspnea Cardiovascular: Denies: Chest Pain, Lt Headedness, Orthopnea, Palpitations, Paroxysmal Noc. Dyspnea Gastrointestinal: Denies: Abdominal Pain, Constipation, Diarrhea, Nausea, Vomiting Psych: Reports: Mood Normal, Denies: Depression, Memory Issues Objective Physical Examination General Exam: Positive: Alert, No Acute Distress ENT Exam: Positive: Atraumatic, Mucous membr. moist/pink, Pharynx Normal Neck Exam: Positive: Supple, Negative: JVD, thyromegaly Chest Exam: Positive: Diminished Heart Exam: Positive: Normal S1, Normal S2, Rate Normal, Regular Rhythm, Negative: Murmurs, Rubs Telemetry: Positive: No significant arrhythmia Abdomen Exam: Positive: Normal bowel sounds, Soft, Negative: Hepatospenomegaly, Tenderness Extremity Exam: Positive: Normal pulses, Negative: Clubbing, Cyanosis, Edema Skin Exam: Positive: Nl turgor and temperature, Negative: Breakdown, Rash Psych Exam: Positive: Mental status NL, Mood NL, Oriented x 3 Assessment /Plan Problems (1) Pneumonia Status: Acute Problem Text: On Vancomycin and Meropenem D#2 Continue Solumedrol 80 mg IV q 8 hrs. Acapella, nebs ordered. Added on Mucinex, cepacol lozenges. (2) Fever Status: Acute Problem Text: Tylenol prn. Probably respiratory in cause. (3) AV fistula Status: Chronic Problem Text: + thrill and bruit. No erythema or warmth. (4) Diarrhea Status: Acute Problem Specific Plan: Monitor Clinically Problem Text: Hx of IBS. recent GI panel negative. Monitor. (5) End stage renal disease on dialysis Status: Chronic Problem Specific Plan: Consult Specialist Problem Text: Nephrology aware and following patient. HD planned for tomorrow. (6) Lung mass Status: Acute Problem Text: Pulmonology aware, following patient. Recent bronchoscopy and Ct guided biopsy with organizing pneumonia. recommended IV abx for 6 weeks. (7) Hypothyroid Status: Chronic Response to Treatment: Stable Problem Specific Plan: Monitor Clinically (8) Lung nodule seen on imaging study Status: Acute Plan/VTE VTE Prophylaxis Ordered?: Yes (Heparin) VS, I&O, 24H, Fishbone Vital Signs/I&O Vital Signs Date Time Temp Pulse Resp B/P Pulse Ox O2 Delivery O2 Flow Rate FiO2 01/06/17 09:19 88 133/61 01/06/17 08:00 97.7 19 99 Nasal Cannula 2.0 I&O- Last 24 Hours up to 6 AM 01/06/17 06:00 Intake Total 840 ml Output Total 2500 ml Balance -1660 ml Laboratory Data 24H LABS Laboratory Tests 2 01/06/17 04:47: Albumin 2.2L, Blood Urea Nitrogen 29H, Creatinine 4.76H, Sodium Level 136, Potassium Level 5.0, Chloride Level 96L, Carbon Dioxide Level 28, Anion Gap 12, White Blood Count 9.8, Red Blood Count 3.44L, Hemoglobin 9.8L, Hematocrit 32.7L , Mean Corpuscular Volume 95.1, Mean Corpuscular Hemoglobin 28.6, Mean Corpuscular Hemoglobin Concent 30.1L, Red Cell Distribution Width 18.7H, Platelet Count 165, Neutrophils (%) (Auto) 91.7H, Lymphocytes (%) (Auto) 4.9L, Monocytes (%) (Auto) 2.3, Eosinophils (%) (Auto) 0.4, Basophils (%) (Auto) 0.2, Neutrophils # (Auto) 9.0H, Lymphocytes # (Auto) 0.5L, Monocytes # (Auto) 0.2, Eosinophils # (Auto) 0.0, Basophils # (Auto) 0.0, Calcium Level 8.5L, Glomerular Filtration Rate 9.8L, Large Unclassified Cells # 0.1, Large Unclassified Cells % 0.5, Magnesium Level 2.0, Phosphorus Level 4.5# CBC/BMP Laboratory Tests 01/06/17 04:47 Anion Gap 12, Red Blood Count 3.44 L, Mean Corpuscular Volume 95.1, Mean Corpuscular Hemoglobin 28.6, Mean Corpuscular Hemoglobin Concent 30.1 L, Red Cell Distribution Width 18.7 H, Neutrophils (%) (Auto) 91.7 H, Lymphocytes (%) ( Auto) 4.9 L, Monocytes (%) (Auto) 2.3, Eosinophils (%) (Auto) 0.4, Basophils (% ) (Auto) 0.2, Neutrophils # (Auto) 9.0 H, Lymphocytes # (Auto) 0.5 L, Monocytes # (Auto) 0.2, Eosinophils # (Auto) 0.0, Basophils # (Auto) 0.0 Microbiology Microbiology 01/03/17 Blood Culture - Preliminary, Resulted No Growth after 48 hours. All Specime... 01/05/17 Gastrointestinal Tract Panel (PCR) - Final, Complete 01/03/17 Respiratory Virus Panel (PCR) (MOISÉS) - Final, Complete Essence Branham Jan 06, 2017 10:19
[2017-01-06] MEDS: guaiFENesin ER 600 MG TAB PO SCH ×2 (12:55→20:59)
[2017-01-06] MEDS: TIAGABINE 4 MG PO SCH (12:56)
[2017-01-06] MEDS: BENZONATATE 100 MG CAP PO PRN ×2 (14:20→21:08)
[2017-01-06 16:00] VITALS: BP 149/70
[2017-01-06] MEDS: CHECK TO SEE IF PATIENT IS RECEIVING DIALYSIS TODAY AND REFER TO THE VANCOMYCIN ORDER XX SCH (16:00)
[2017-01-06 19:42] VITALS: O2SAT 98
[2017-01-06 20:30] VITALS: BP 109/63
[2017-01-06] MEDS: PRAVASTATIN 20 MG TAB PO SCH (20:59)
[2017-01-07 00:42] VITALS: BP 133/61
[2017-01-07] MEDS: IPRATROPIUM 0.5MG/ALBUTEROL 2.5MG INH SOL UD 3ML (DUONEB)(J7620) NEB SCH ×4 (02:02→19:48)
[2017-01-07] MEDS: LEVOTHYROXINE 0.125 MG TAB (125 MCG) PO SCH (05:05)
[2017-01-07] MEDS: MEROPENEM INJ 500 MG in D5W MINI-BAG PLUS 100 ML IV SCH ×2 (05:05→15:05)
[2017-01-07] MEDS: methylPREDNISolone INJ 125 MG/2 ML VIAL (J2930) IV SCH ×3 (05:05→20:07)
[2017-01-07] MEDS: HEPARIN SOD (PORCINE) 5000 UNITS/ML VIAL SC SCH ×3 (05:05→22:10)
[2017-01-07] MEDS: SLF 3 ML SYR IV SCH ×3 (05:06→22:11)
[2017-01-07 05:15] VITALS: BP 147/70
[2017-01-07 05:31] LABS: BASO % 0.2 % (0.0-1.0); EOS % 0.3 % (0.0-3.0); LARGE UNSTAINED CELL # 0.1 K/mm3 (0.0-0.4); LARGE UNSTAINED CELL % 0.7 % (0.0-4.0); LYMPH # 0.5 K/mm3 (1.5-4.5); LYMPH % 6.6 % (24.0-44.0); MEAN CORPUSCULAR HGB CONC 29.2 g/dl (32.0-36.5); MEAN CORPUSCULAR VOLUME 95.8 fl (80.0-96.0); MONO # 0.2 K/mm3 (0.0-0.8); MONO % 2.1 % (0.0-5.0); NEUTROPHILS # 6.7 K/mm3 (1.8-7.7); NEUTROPHILS % 90.1 % (36.0-66.0); PLATELET COUNT, AUTOMATED 168 k/mm3 (150-450); RED CELL DISTRIBUTION WIDTH 18.7 % (11.5-14.5); WHITE BLOOD COUNT 7.5 K/mm3 (4.0-10.0)
[2017-01-07 05:46] LABS: ALBUMIN 2.2 GM/DL (3.2-5.2); CALCIUM LEVEL 8.4 MG/DL (8.8-10.2); CREATININE FOR GFR 6.61 MG/DL (0.55-1.02); GLOMERULAR FILTRATION RATE 6.7 (>45); PHOSPHORUS LEVEL 3.8 MG/DL (2.5-4.9)
[2017-01-07 05:47] LABS: POTASSIUM SERUM 5.2 MEQ/L (3.5-5.1)
[2017-01-07] MEDS: FLUTICASONE HFA 110 MCG 12 GM INHALER (FLOVENT) INH SCH ×2 (07:46→21:00)
[2017-01-07 08:00] VITALS: BP 161/71
[2017-01-07] MEDS: DICYCLOMINE 10 MG CAP PO SCH ×4 (08:39→20:07)
[2017-01-07] MEDS: LACTOBACILLUS ACIDOPHILUS CAP (BACID) PO SCH (08:39)
[2017-01-07] MEDS: PANTOPRAZOLE 40MG TAB (PROTONIX) PO SCH (08:40)
[2017-01-07] MEDS: guaiFENesin ER 600 MG TAB PO SCH ×2 (08:40→20:08)
[2017-01-07] MEDS: METOPROLOL TART 50 MG TAB PO SCH ×2 (08:40→20:08)
[2017-01-07] MEDS: BENZONATATE 100 MG CAP PO PRN ×2 (08:50→15:41)
[2017-01-07] MEDS: ACETAMINOPHEN TAB 650MG DOSE (2X325MG) PO PRN ×2 (08:50→15:42)
--- NOTE | 2017-01-07 09:07 | IPNPDOC ---
Subjective Date Seen The patient was seen on 01/07/17. Subjective Chief Complaint/HPI The patient is a 66-year-old female admitted with a reason for visit of Fever, Lung Mass,Pna,Vomiting. Events since last encounter C/o right CW pain when coughing or deep inspiration. Tylenol prn. Constitutional: Denies: Chills, Fever, Night Sweats ENT: Denies: Dysphagia, Ear Pain, Head Aches Skin: Denies: Breakdown, Lesions, Rash Pulmonary: Reports: Cough, Denies: Dyspnea Cardiovascular: Denies: Chest Pain, Lt Headedness, Orthopnea, Palpitations, Paroxysmal Noc. Dyspnea Gastrointestinal: Denies: Abdominal Pain, Constipation, Diarrhea, Nausea, Vomiting Genitourinary: Denies: Dysuria, Frequency, Incontinence, Retention Psych: Reports: Mood Normal, Denies: Depression, Memory Issues Objective Physical Examination General Exam: Positive: Alert, No Acute Distress ENT Exam: Positive: Atraumatic, Mucous membr. moist/pink, Pharynx Normal Neck Exam: Positive: Supple, Negative: JVD, thyromegaly Chest Exam: Positive: Clear to auscultation (slight diominished RML) Heart Exam: Positive: Normal S1, Normal S2, Rate Normal, Regular Rhythm, Negative: Murmurs, Rubs Telemetry: Positive: No significant arrhythmia Abdomen Exam: Positive: Normal bowel sounds, Soft, Negative: Hepatospenomegaly, Tenderness Extremity Exam: Positive: Normal pulses, Negative: Clubbing, Cyanosis, Edema Skin Exam: Positive: Nl turgor and temperature, Negative: Breakdown, Rash Psych Exam: Positive: Mental status NL, Mood NL, Oriented x 3 Assessment /Plan Problems (1) Pneumonia Status: Acute Problem Text: On Vancomycin and Meropenem D#3 Continue Solumedrol 80 mg IV q 8 hrs. Acapella, nebs ordered. Added on Mucinex, cepacol lozenges. Pulmonology following. (2) Fever Status: Acute Problem Text: Tylenol prn. Probably respiratory in cause. (3) AV fistula Status: Chronic Problem Text: + thrill and bruit. No erythema or warmth. (4) Diarrhea Status: Acute Response to Treatment: Improving Problem Specific Plan: Monitor Clinically Problem Text: Hx of IBS. recent GI panel negative. Monitor. (5) End stage renal disease on dialysis Status: Chronic Problem Specific Plan: Consult Specialist Problem Text: Nephrology aware and following patient. HD planned for tomorrow. (6) Lung mass Status: Acute Problem Text: Pulmonology aware, following patient. Recent bronchoscopy and Ct guided biopsy with organizing pneumonia. recommended IV abx for 6 weeks. (7) Hypothyroid Status: Chronic Response to Treatment: Stable Problem Specific Plan: Monitor Clinically (8) Lung nodule seen on imaging study Status: Acute Plan/VTE VTE Prophylaxis Ordered?: Yes (Heparin) VS, I&O, 24H, Fishbone Vital Signs/I&O Vital Signs Date Time Temp Pulse Resp B/P Pulse Ox O2 Delivery O2 Flow Rate FiO2 01/07/17 08:40 68 147/70 01/07/17 08:00 97.6 22 98 Nasal Cannula 1.0 I&O- Last 24 Hours up to 6 AM 01/07/17 06:00 Intake Total 920 ml Output Total 0 ml Balance 920 ml Laboratory Data 24H LABS Laboratory Tests 2 01/07/17 04:55: Albumin 2.2L, Blood Urea Nitrogen 60#H, Creatinine 6.61H, Sodium Level 132L, Potassium Level 5.2H, Chloride Level 96L, Carbon Dioxide Level 25, Anion Gap 11 , White Blood Count 7.5, Red Blood Count 3.47L, Hemoglobin 9.7L, Hematocrit 33.2L, Mean Corpuscular Volume 95.8, Mean Corpuscular Hemoglobin 28.0, Mean Corpuscular Hemoglobin Concent 29.2L, Red Cell Distribution Width 18.7H, Platelet Count 168, Neutrophils (%) (Auto) 90.1H, Lymphocytes (%) (Auto) 6.6L, Monocytes (%) (Auto) 2.1, Eosinophils (%) (Auto) 0.3, Basophils (%) (Auto) 0.2, Neutrophils # (Auto) 6.7, Lymphocytes # (Auto) 0.5L, Monocytes # (Auto) 0.2, Eosinophils # (Auto) 0.0, Basophils # (Auto) 0.0, Calcium Level 8.4L, Glomerular Filtration Rate 6.7L, Large Unclassified Cells # 0.1, Large Unclassified Cells % 0.7, Phosphorus Level 3.8 CBC/BMP Laboratory Tests 01/07/17 04:55 Anion Gap 11, Red Blood Count 3.47 L, Mean Corpuscular Volume 95.8, Mean Corpuscular Hemoglobin 28.0, Mean Corpuscular Hemoglobin Concent 29.2 L, Red Cell Distribution Width 18.7 H, Neutrophils (%) (Auto) 90.1 H, Lymphocytes (%) ( Auto) 6.6 L, Monocytes (%) (Auto) 2.1, Eosinophils (%) (Auto) 0.3, Basophils (% ) (Auto) 0.2, Neutrophils # (Auto) 6.7, Lymphocytes # (Auto) 0.5 L, Monocytes # (Auto) 0.2, Eosinophils # (Auto) 0.0, Basophils # (Auto) 0.0 Microbiology Microbiology 01/03/17 Blood Culture - Preliminary, Resulted No Growth after 72 hours. All specime... 01/05/17 Gastrointestinal Tract Panel (PCR) - Final, Complete 01/03/17 Respiratory Virus Panel (PCR) ([facility]) - Final, Complete Essence BranhamP Jan 07, 2017 09:07
[2017-01-07] MEDS ORDERED: ANUSOL HC CREAM 30GM TOP PRN (09:45)
[2017-01-07 12:00] VITALS: BP 139/66
[2017-01-07] MEDS: TIAGABINE 4 MG PO SCH (12:42)
[2017-01-07] MEDS: CHECK TO SEE IF PATIENT IS RECEIVING DIALYSIS TODAY AND REFER TO THE VANCOMYCIN ORDER XX SCH (15:33)
[2017-01-07 16:00] VITALS: BP 124/55
--- NOTE | 2017-01-07 17:38 | IPN ---
DATE: 01/06/2017 SUBJECTIVE: This is a 66-year-old female who was seen and examined at bedside. Overnight, no reported acute events. Underwent hemodialysis yesterday with 2.5 kg removed and tolerated that well. Reports that her overall condition is improved. Breathing is better. No longer reports diarrhea. Had one episode of low grade fever after dialysis, 100.1, which has since resolved. Still reports persistent cough without production. REVIEW OF SYSTEMS: Denies any chest pain, shortness of breath, palpitations, fever, chills, nausea, vomiting, diarrhea, constipation, abdominal pain, headache, lightheadedness, or dizziness. OBJECTIVE: VITAL SIGNS: Blood pressure 133/61, heart rate 88, temperature 97.7, respiration rate 19, pulse oximetry 99% on 2 liters nasal cannula. INTAKE AND OUTPUT: Last 24 hours: 1140 and 2500, net negative 1360. Weight is 64.9 kg. Yesterday it was 66.5 kg. PHYSICAL EXAMINATION: GENERAL: Patient is sitting in chair, comfortable, in no acute distress. Alert , awake, oriented times three. Pleasant, cooperative. HEENT: Normocephalic, atraumatic. Moist oral mucosa. Dentures in place. No thrush or lesions appreciated. NECK: Supple. Trachea midline. No jugular venous distention (JVD) upright position. CHEST: Symmetric chest rise. No accessory muscle use. Breath sounds diminished bilateral, with scattered rhonchi occasionally. Persistent cough throughout physical examination. Somewhat difficult to appreciate due to the persistent cough. HEART: Regular rate and rhythm. S1, S2 present and normal. Persistent systolic murmur at the second intercostal border without radiation to the carotids. ABDOMEN: Soft, nontender, nondistended. Bowel sounds present. No guarding. No rebound. EXTREMITIES: No pedal edema. Pedal pulses present bilaterally. No cyanosis or clubbing of nail beds. Right upper extremity with atrioventricular (AV) fistula positive for a bruit and thrill. SKIN: No obvious rash or lesions appreciated. NEUROLOGIC: Alert, awake, oriented times three without focal deficits. PSYCHIATRIC: Normal affect. Pleasant, cooperative. LABORATORY DATA: WBC 9.8, hemoglobin 9.8, hematocrit 32.7, platelets 165; neutrophils 91.7. Sodium 136, potassium 5, chloride 96, carbon dioxide 28, BUN 29, creatinine 4.76 , fasting glucose 203, calcium 8.5, phosphorus 4.5, magnesium 2. Albumin 2.2. Gastrointestinal (GI) panel is negative. Respiratory panel is negative. MEDICATIONS: Reviewed. No new medications were added. IMPRESSION/PLAN: Ms. 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 At the last admission, was found to have organizing pneumonia, was discharged home. Unfortunately, developed worsening cough, fever, chills, and diarrhea. PLAN: 1. End-stage renal disease secondary to Goodpasture. Underwent hemodialysis yesterday and tolerated that well. We will plan for dialysis again Sunday. 2. Organizing pneumonia. Found from two biopsies at the last admission. She is currently on meropenem and vancomycin. 3. History of Goodpasture disease. Her IgM level in 2014 was 163. She is currently on intravenous (IV) steroids per primary team. Repeat Ab titer is negative. 4. Hypertension. Blood pressure is within reasonable range. She is on her home dose Lopressor 50 mg on non-dialysis days and 50 mg nightly. 5. Anemia. Currently no need for emergent transfusion. We will plan for Aranesp with dialysis starting Sunday. 6. Hyperparathyroidism. Her phosphorus level is within normal range. We will hold off on restarting her Renvela at this time. 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 Hanson 01/02/2017. Case discussed with primary team, Ms. Essence Branham and Dr. Fuentes. My preceptor for this patient encounter was Dr. Solano. The preceptor was physically present in the building during the encounter and was fully available as needed. All aspects of the patient interview, examination, medical decision-making process, and medical care plan development were reviewed and approved by the preceptor. The preceptor is aware and concurs with the plan as stated in the body of this note and will attest to such by his/her co-signature. SOL
[2017-01-07] MEDS: FLUTICASONE PROP 0.05% NASAL SPRAY 16 GM (FLONASE) SCH (20:07)
[2017-01-07] MEDS: PRAVASTATIN 20 MG TAB PO SCH (20:07)
[2017-01-07] MEDS: LOPERAMIDE 2 MG CAP PO PRN (20:07)
[2017-01-07 20:08] VITALS: BP 128/61
[2017-01-08 00:58] VITALS: BP 134/68
[2017-01-08] MEDS: IPRATROPIUM 0.5MG/ALBUTEROL 2.5MG INH SOL UD 3ML (DUONEB)(J7620) NEB SCH ×4 (01:32→19:49)
[2017-01-08 04:22] VITALS: BP 148/67
[2017-01-08] MEDS: methylPREDNISolone INJ 125 MG/2 ML VIAL (J2930) IV SCH ×3 (04:43→21:03)
[2017-01-08] MEDS: MEROPENEM INJ 500 MG in D5W MINI-BAG PLUS 100 ML IV SCH ×2 (04:43→16:57)
[2017-01-08] MEDS: LEVOTHYROXINE 0.125 MG TAB (125 MCG) PO SCH (04:52)
[2017-01-08] MEDS: HEPARIN SOD (PORCINE) 5000 UNITS/ML VIAL SC SCH ×3 (04:52→21:03)
[2017-01-08] MEDS: ACETAMINOPHEN TAB 650MG DOSE (2X325MG) PO PRN ×3 (04:53→21:03)
[2017-01-08] MEDS: BENZONATATE 100 MG CAP PO PRN ×2 (04:53→16:57)
--- NOTE | 2017-01-08 05:09 | IPN ---
DATE: 01/07/2017 SUBJECTIVE: The patient was see and examined at the bedside today in the morning. She feels much better. She does not have any acute complaints at this time. She continues to be on IV antibiotics and IV steroids. REVIEW OF SYSTEMS: The patient denies any fevers, chills, rigors, headache, nausea, vomiting. She does report pain in the right lower rib cage. She denies any shortness of breath. She denies any pain in the abdomen, constipation or diarrhea. The rest of the review of systems is negative. OBJECTIVE: VITAL SIGNS: Temperature is 98.6 degrees Fahrenheit. Blood pressure is 139/66, pulse is 71, respiratory rate of 18, saturating 99% on nasal canula at 1 liter per minute. Intake and output: Urine output is not recorded at this time. Weight on the bed scale is 66.2 kg. PHYSICAL EXAMINATION: GENERAL: The patient is awake, alert, and oriented times three, sitting in the bed in no apparent distress. HEAD AND NECK EXAM: Extraocular muscles intact. Pupils equally round and reactive to light. Neck is supple. There is no jugular venous distension (JVD). Trachea is midline. CARDIOVASCULAR: S1, S2 regular rate. No murmur, rub or gallop. CHEST: Positive tenderness on deep palpation in the right lower rib cage. Chest is clear to auscultation bilaterally. Bilateral equal air entry. No rales or rhonchi. ABDOMEN: Soft, positive bowel sounds. Nontender. No ascites. No organomegaly. EXTREMITIES: No clubbing or cyanosis. Pulses are 2+. No edema of the bilateral lower extremities. CENTRAL NERVOUS SYSTEM: No focal neurological deficit. Power is 5/5 in all extremities. PSYCHIATRIC: Normal mood and affect. SKIN: No rashes or ulcers. LABORATORY REVIEW: Complete blood count (CBC) showed a white blood count (WBC) of 7.5, hemoglobin 9.7, platelets are 168. Basic metabolic panel (BMP) showed sodium 132, potassium 5.2, chloride 96, bicarbonate 25, BUN 60, creatine is 6.6, calcium is 8.4, albumin is 2.2. MICROBIOLOGY: Cultures are negative so far. CURRENT MEDICATIONS: The patient's medications were all reviewed by me. There is no change in the medications at this time. She continues to be on IV meropenem and vancomycin with hemodialysis. ASSESSMENT: 66-year-old female with past medical history of Goodpasture's disease in the past causing end-stage renal disease, currently on hemodialysis, admitted at this time because of fever, chills and rigors secondary to pneumonia. PLAN: 1. End-stage renal disease on hemodialysis. The patient's regular dialysis days are Sunday, Sunday, Sunday. She will be dialyzed according to her regular schedule tomorrow. 2. Organizing pneumonia. The patient is currently on meropenem and vancomycin, symptoms are getting better. Duration of antibiotics is as per pulmonary team. 3. History of Goodpasture's disease. The patient recently got anti-GBM antibodies and got MED done, all of them were negative. The patient is currently on IV steroids. Dose and duration of steroids is as per pulmonary team. 4. Hypertension. Blood pressure is acceptable at this time. Continue current dose of Lopressor. 5. Anemia and end-stage renal disease. The patient will get a dose of Aranesp 200 mcg IV with hemodialysis tomorrow.
[2017-01-08 05:31] LABS: BASO % 0.1 % (0.0-1.0); EOS % 0.2 % (0.0-3.0); LARGE UNSTAINED CELL % 0.6 % (0.0-4.0); LYMPH # 0.5 K/mm3 (1.5-4.5); LYMPH % 5.9 % (24.0-44.0); MEAN CORPUSCULAR HEMOGLOBIN 28.6 pg (27.0-33.0); MEAN CORPUSCULAR HGB CONC 30.9 g/dl (32.0-36.5); MEAN CORPUSCULAR VOLUME 92.5 fl (80.0-96.0); MONO # 0.2 K/mm3 (0.0-0.8); NEUTROPHILS # 6.9 K/mm3 (1.8-7.7); NEUTROPHILS % 91.2 % (36.0-66.0); PLATELET COUNT, AUTOMATED 164 k/mm3 (150-450); RED CELL DISTRIBUTION WIDTH 18.4 % (11.5-14.5); WHITE BLOOD COUNT 7.6 K/mm3 (4.0-10.0)
[2017-01-08 05:48] LABS: ALBUMIN 2.4 GM/DL (3.2-5.2); CALCIUM LEVEL 8.1 MG/DL (8.8-10.2); CREATININE FOR GFR 8.37 MG/DL (0.55-1.02); GLOMERULAR FILTRATION RATE 5.1 (>45); MAGNESIUM LEVEL 1.7 MG/DL (1.8-2.4); PHOSPHORUS LEVEL 4.3 MG/DL (2.5-4.9); POTASSIUM SERUM 4.8 MEQ/L (3.5-5.1)
[2017-01-08] MEDS: LACTOBACILLUS ACIDOPHILUS CAP (BACID) PO SCH (06:36)
[2017-01-08] MEDS: SLF 3 ML SYR IV SCH ×3 (06:36→21:02)
[2017-01-08] MEDS: DICYCLOMINE 10 MG CAP PO SCH ×4 (06:36→21:03)
[2017-01-08] MEDS: LOPERAMIDE 2 MG CAP PO PRN ×4 (06:36→17:04)
[2017-01-08] MEDS: guaiFENesin ER 600 MG TAB PO SCH ×2 (06:36→21:03)
[2017-01-08] MEDS: PANTOPRAZOLE 40MG TAB (PROTONIX) PO SCH (06:36)
[2017-01-08] MEDS ORDERED: MAG SULF 1GM/100ML (MAG RUN) 1 GM in APPROPRIATE DILUENT 1 EA IV ONE (07:45)
[2017-01-08] MEDS: FLUTICASONE HFA 110 MCG 12 GM INHALER (FLOVENT) INH SCH ×2 (07:48→19:49)
[2017-01-08 08:00] VITALS: BP 142/64
--- NOTE | 2017-01-08 09:10 | IPNPDOC ---
Subjective Date Seen The patient was seen on 01/08/17. Subjective Chief Complaint/HPI The patient is a 66-year-old female admitted with a reason for visit of Fever, Lung Mass,Pna,Vomiting. Events since last encounter Pt denies any new issues. Constitutional: Denies: Chills, Fever Pulmonary: Denies: Dyspnea Cardiovascular: Denies: Chest Pain Gastrointestinal: Denies: Abdominal Pain, Nausea, Vomiting Objective Physical Examination General Exam: Positive: Alert, No Acute Distress ENT Exam: Positive: Atraumatic, Mucous membr. moist/pink, Pharynx Normal Neck Exam: Positive: Supple, Negative: JVD, thyromegaly Chest Exam: Positive: Clear to auscultation (slight diominished RML) Heart Exam: Positive: Normal S1, Normal S2, Rate Normal, Regular Rhythm, Negative: Murmurs, Rubs Telemetry: Positive: No significant arrhythmia Abdomen Exam: Positive: Normal bowel sounds, Soft, Negative: Hepatospenomegaly, Tenderness Extremity Exam: Positive: Normal pulses, Negative: Clubbing, Cyanosis, Edema Skin Exam: Positive: Nl turgor and temperature, Negative: Breakdown, Rash Psych Exam: Positive: Mental status NL, Mood NL, Oriented x 3 Assessment /Plan Problems (1) Pneumonia Status: Acute Problem Text: 01/08 - Vanco and Meropenem D4. Solumedrol 80 mg IV q8hrs. On Vancomycin and Meropenem D#3 Continue Solumedrol 80 mg IV q 8 hrs. Acapella, nebs ordered. Added on Mucinex, cepacol lozenges. Pulmonology following. (2) Fever Status: Acute Problem Text: 01/08 - Currently afebrile. Last document fever in [facility] was . Tylenol prn. Probably respiratory in cause. (3) AV fistula Status: Chronic Problem Text: + thrill and bruit. No erythema or warmth. (4) Diarrhea Status: Acute Response to Treatment: Improving Problem Specific Plan: Monitor Clinically Problem Text: Hx of IBS. recent GI panel negative. Monitor. (5) End stage renal disease on dialysis Status: Chronic Problem Specific Plan: Consult Specialist Problem Text: 01/08 - Nephrology following. Scheduled for HD today. Nephrology aware and following patient. HD planned for tomorrow. (6) Lung mass Status: Acute Problem Text: Pulmonology aware, following patient. Recent bronchoscopy and Ct guided biopsy with organizing pneumonia. recommended IV abx for 6 weeks. (7) Hypothyroid Status: Chronic Response to Treatment: Stable Problem Specific Plan: Monitor Clinically (8) Lung nodule seen on imaging study Status: Acute Plan/VTE VTE Prophylaxis Ordered?: Yes (Heparin) VS, I&O, 24H, Fishbone Vital Signs/I&O Vital Signs Date Time Temp Pulse Resp B/P Pulse Ox O2 Delivery O2 Flow Rate FiO2 01/08/17 08:13 Nasal Cannula 1.0 01/08/17 08:00 97.6 74 18 142/64 100 I&O- Last 24 Hours up to 6 AM 01/08/17 06:00 Intake Total 580 ml Output Total 0 ml Balance 580 ml Laboratory Data 24H LABS Laboratory Tests 2 01/08/17 05:14: Albumin 2.4L, Blood Urea Nitrogen 90H, Creatinine 8.37H, Sodium Level 133L, Potassium Level 4.8, Chloride Level 94L, Carbon Dioxide Level 25, Anion Gap 14, White Blood Count 7.6, Red Blood Count 3.26L, Hemoglobin 9.3L, Hematocrit 30.2L , Mean Corpuscular Volume 92.5, Mean Corpuscular Hemoglobin 28.6, Mean Corpuscular Hemoglobin Concent 30.9L, Red Cell Distribution Width 18.4H, Platelet Count 164, Neutrophils (%) (Auto) 91.2H, Lymphocytes (%) (Auto) 5.9L, Monocytes (%) (Auto) 2.0, Eosinophils (%) (Auto) 0.2, Basophils (%) (Auto) 0.1, Neutrophils # (Auto) 6.9, Lymphocytes # (Auto) 0.5L, Monocytes # (Auto) 0.2, Eosinophils # (Auto) 0.0, Basophils # (Auto) 0.0, Calcium Level 8.1L, Glomerular Filtration Rate 5.1L, Large Unclassified Cells # 0.0, Large Unclassified Cells % 0.6, Magnesium Level 1.7L, Phosphorus Level 4.3 CBC/BMP Laboratory Tests 01/08/17 05:14 Anion Gap 14, Red Blood Count 3.26 L, Mean Corpuscular Volume 92.5, Mean Corpuscular Hemoglobin 28.6, Mean Corpuscular Hemoglobin Concent 30.9 L, Red Cell Distribution Width 18.4 H, Neutrophils (%) (Auto) 91.2 H, Lymphocytes (%) ( Auto) 5.9 L, Monocytes (%) (Auto) 2.0, Eosinophils (%) (Auto) 0.2, Basophils (% ) (Auto) 0.1, Neutrophils # (Auto) 6.9, Lymphocytes # (Auto) 0.5 L, Monocytes # (Auto) 0.2, Eosinophils # (Auto) 0.0, Basophils # (Auto) 0.0 Microbiology Microbiology 01/03/17 Blood Culture - Preliminary, Resulted No Growth after 72 hours. All specime... 01/05/17 Gastrointestinal Tract Panel (PCR) - Final, Complete 01/03/17 Respiratory Virus Panel (PCR) ([facility]) - Final, Complete Mike Garza Jan 08, 2017 09:10
[2017-01-08] MEDS ORDERED: DARBEPOETIN 100 MCG/0.5 ML *DIALYSIS* SYRINGE (J0882) IV SCH (10:15)
[2017-01-08] MEDS ORDERED: HEPARIN 1,000 UNITS/ML 10ML VIAL (FOR RADIOLOGY& DIALYSIS ONLY) IV ONE (12:45)
[2017-01-08] MEDS ORDERED: LIDOCAINE 1% SDV 5 ML VIAL SQ ONE (12:45)
--- NOTE | 2017-01-08 13:02 | IPN ---
DATE OF SERVICE: 01/08/2017 SUBJECTIVE: The patient was seen and examined at the bedside today in the morning during hemodialysis procedure. The patient was tolerating the hemodialysis procedure well. She does not have any acute complaints. REVIEW OF SYSTEMS: The patient denies any fevers, chills, rigors, headache, nausea, vomiting, shortness of breath. She does report some cough, and she does report right-sided chest pain because of persistent coughing. She denies any pain abdomen, constipation, or diarrhea. The rest of the review of systems is negative. OBJECTIVE: VITAL SIGNS: Temperature is 97.6 degrees Fahrenheit. Blood pressure is 142/64, pulse is 74, respiratory rate of 18, saturating 100% on room air. INTAKE AND OUTPUT: Urine output is not recorded at this time. Weight on the bed scale is 67.6 kg. PHYSICAL EXAMINATION: GENERAL: The patient is awake, alert, oriented times three, laying in the bed, getting hemodialysis. No apparent distress. HEAD AND NECK EXAMINATION: Extraocular muscles intact. Pupils equally round and reactive to light. Neck is supple. There is no jugular venous distension (JVD). CARDIOVASCULAR: S1, S2, regular rate. No murmur, rub, and gallop. RESPIRATORY: Chest is clear to auscultation bilaterally. Bilateral equal air entry. No rales or rhonchi. ABDOMEN: Is soft. Positive bowel sounds. Nontender. No ascites. No organomegaly. EXTREMITIES: No clubbing or cyanosis. Pulses are 2+. No edema of the bilateral lower extremities. CENTRAL NERVOUS SYSTEM: No focal neurological deficit. Power is 5/5 in all extremities. PSYCHIATRIC: Normal mood and affect. SKIN: No rashes or ulcers. LABORATORY REVIEW: Complete blood count (CBC) showed a white blood count (WBC) of 7.6, hemoglobin 9.3, platelets of 164. Basic metabolic panel (BMP) showed sodium 133, potassium 4.8, chloride 94, bicarbonate 25, BUN is 90, creatine is 8.3, calcium is 8.1, magnesium is 1.7, albumin 2.4. CURRENT MEDICATIONS: The patient's medications were all reviewed by me. There is no change in the medications today as compared with yesterday. ASSESSMENT: A 66-year-old female with past medical history of Goodpasture disease in the past resulting in end-stage renal disease, currently requiring hemodialysis. The patient was admitted this time because of fever, chills, and rigors secondary to pneumonia. PLAN: 1. End-stage renal disease, on hemodialysis. The patient is getting dialyzed according to her Sunday, Sunday, Sunday schedule. We shall try to do an ultrafiltration of 2-2.5 kg as tolerated by her blood pressure. 2. Organizing pneumonia. The patient is continues to be on intravenous (IV) meropenem and vancomycin. Her symptoms are better. She denies any fevers and chills. Duration of antibiotics is as per pulmonary team. 3. Hypertension. Blood pressure is acceptable at this time. Continue current dose of lopressor. 4. Anemia in end-stage renal disease. The patient's hemoglobin is suboptimal. She will get a dose of Aranesp 200 mcg IV with hemodialysis today. 5. History of Goodpasture disease. The patient's anti-GBM antibodies, antinuclear antibody (MED), and antineutrophil cytoplasmic antibody (ANCA) were all negative a few weeks ago during a previous admission. She is currently on high dose of steroids, Solu-Medrol 80 mg every 8 hours. Dose and duration of steroids is as per pulmonary critical care team.
[2017-01-08 14:15] VITALS: BP 151/69
[2017-01-08] MEDS: TIAGABINE 4 MG PO SCH (14:32)
[2017-01-08 16:00] VITALS: BP 135/76
[2017-01-08] MEDS: CHECK TO SEE IF PATIENT IS RECEIVING DIALYSIS TODAY AND REFER TO THE VANCOMYCIN ORDER XX SCH (16:00)
[2017-01-08] MEDS: VANCOMYCIN HCL 750 MG, VIAL MATE ADAPTER 1 EACH in D5W 250 ML IV SCH (17:38)
[2017-01-08 20:00] VITALS: BP 136/67
[2017-01-08] MEDS: FLUTICASONE PROP 0.05% NASAL SPRAY 16 GM (FLONASE) SCH (21:02)
[2017-01-08] MEDS: PRAVASTATIN 20 MG TAB PO SCH (21:03)
[2017-01-08] MEDS: METOPROLOL TART 50 MG TAB PO SCH (21:04)
[2017-01-09] VITALS: BP 139/65
[2017-01-09] MEDS: IPRATROPIUM 0.5MG/ALBUTEROL 2.5MG INH SOL UD 3ML (DUONEB)(J7620) NEB SCH ×3 (01:18→13:04)
[2017-01-09 04:00] VITALS: BP 140/65
[2017-01-09] MEDS: MEROPENEM INJ 500 MG in D5W MINI-BAG PLUS 100 ML IV SCH (04:56)
[2017-01-09] MEDS: methylPREDNISolone INJ 125 MG/2 ML VIAL (J2930) IV SCH (04:56)
[2017-01-09] MEDS: HEPARIN SOD (PORCINE) 5000 UNITS/ML VIAL SC SCH (04:57)
[2017-01-09] MEDS: LEVOTHYROXINE 0.125 MG TAB (125 MCG) PO SCH (04:57)
[2017-01-09] MEDS: SLF 3 ML SYR IV SCH (04:57)
[2017-01-09] MEDS: ACETAMINOPHEN TAB 650MG DOSE (2X325MG) PO PRN ×2 (05:03→09:27)
[2017-01-09 05:47] LABS: BASO % 0.1 % (0.0-1.0); EOS % 0.1 % (0.0-3.0); LARGE UNSTAINED CELL % 0.6 % (0.0-4.0); LYMPH # 0.4 K/mm3 (1.5-4.5); LYMPH % 6.6 % (24.0-44.0); MEAN CORPUSCULAR HGB CONC 29.9 g/dl (32.0-36.5); MEAN CORPUSCULAR VOLUME 93.9 fl (80.0-96.0); MONO # 0.2 K/mm3 (0.0-0.8); MONO % 2.6 % (0.0-5.0); NEUTROPHILS # 5.1 K/mm3 (1.8-7.7); PLATELET COUNT, AUTOMATED 170 k/mm3 (150-450); RED CELL DISTRIBUTION WIDTH 18.7 % (11.5-14.5); WHITE BLOOD COUNT 5.7 K/mm3 (4.0-10.0)
[2017-01-09 05:58] LABS: ALBUMIN 2.4 GM/DL (3.2-5.2); CALCIUM LEVEL 7.7 MG/DL (8.8-10.2); CREATININE FOR GFR 5.22 MG/DL (0.55-1.02); GLOMERULAR FILTRATION RATE 8.8 (>45); MAGNESIUM LEVEL 1.7 MG/DL (1.8-2.4); PHOSPHORUS LEVEL 5.2 MG/DL (2.5-4.9); POTASSIUM SERUM 4.4 MEQ/L (3.5-5.1)
[2017-01-09] MEDS: FLUTICASONE HFA 110 MCG 12 GM INHALER (FLOVENT) INH SCH (07:10)
[2017-01-09] MEDS ORDERED: predniSONE 20 MG TAB PO SCH (09:00)
[2017-01-09] MEDS ORDERED: CEFDINIR 300 MG CAP (OMNICEF) PO SCH (09:00)
[2017-01-09] MEDS: LOPERAMIDE 2 MG CAP PO PRN (09:24)
[2017-01-09 09:25] VITALS: BP 140/65
[2017-01-09] MEDS: PANTOPRAZOLE 40MG TAB (PROTONIX) PO SCH (09:25)
[2017-01-09] MEDS: DICYCLOMINE 10 MG CAP PO SCH ×2 (09:25→12:17)
[2017-01-09] MEDS: METOPROLOL TART 50 MG TAB PO SCH (09:25)
[2017-01-09] MEDS: guaiFENesin ER 600 MG TAB PO SCH (09:25)
[2017-01-09] MEDS: LACTOBACILLUS ACIDOPHILUS CAP (BACID) PO SCH (09:25)
[2017-01-09] MEDS ORDERED: DARBEPOETIN 100 MCG/0.5 ML *DIALYSIS* SYRINGE (J0882) IV SCH (10:15)
[2017-01-09] MEDS ORDERED: metroNIDAZOLE (FLAGYL) 500 MG TAB PO SCH (12:00)
--- NOTE | 2017-01-09 12:13 | IPN ---
DATE: 01/09/2017 SUBJECTIVE: Patient was seen and examined at the bedside today in the morning. Patient feels better today. She got hemodialysis done yesterday. She tolerated the hemodialysis procedure well. She continues to complain of some mild cough and pain on the right side of the rib cage. Patient also complains that she is not getting enough diet and she wants her renal diet to be liberalized. REVIEW OF SYSTEMS: Patient denies any fevers, chills, rigors, headache, nausea, vomiting. She does report right sided chest pain on coughing. She does report some dry cough. She denies any pain in abdomen, constipation, diarrhea. Rest of review of system is negative. OBJECTIVE: Vital signs: Temperature is 96.7 degrees Fahrenheit, blood pressure is 140/65, pulse 69, respiratory rate 18, saturating 100% on nasal cannula at 1 liter per minute. Intake and output: There is no urine output recorded. Ultrafiltration with hemodialysis was 2.5 liter yesterday. Weight on the bed scale is 65.9 kg. PHYSICAL EXAMINATION: General: Patient is awake, alert, oriented times three, sitting in bed, no apparent distress. Head and neck exam: Extraocular muscles intact. Pupils equally round and reactive to light. Mucous membranes are moist. Neck is supple. There is no jugular venous distention (JVD). Cardiovascular: S1, S2, regular rate. No murmur, rub or gallop. Respiratory: Chest is clear to auscultation bilaterally. Bilateral equal air entry. No rales or rhonchi. Abdomen: Soft, positive bowel sounds, nontender, no ascites, no organomegaly. Extremities: No clubbing or cyanosis. Pulses are 2+. No edema of the bilateral lower extremities. Central nervous system: No focal neurological deficit. Power is 5/5 in all extremities. Psych: Normal mood and affect. Skin: No rashes or ulcers. LAB REVIEW: CBC showed WBC of 5.7, hemoglobin 9.9, platelets 170. BMP showed sodium 135, potassium 4.4, chloride 96, bicarbonate 28, BUN 50, creatine 5.2. CURRENT MEDICATIONS: Patient's current medications are all reviewed by me. Her vancomycin and meropenem has been stopped. She has been started on cefdinir 300 mg by mouth twice daily. IV Solu-Medrol has also been changed and she has been placed on prednisone 20 mg in the morning and 10 mg at nighttime. ASSESSMENT: 66-year-old female with past medical history of Goodpasture disease resulting in end stage renal disease currently in remission. Patient has end stage renal disease requiring hemodialysis. She was admitted this time because of fever, chills, rigors secondary to left upper lobe pneumonia. PLAN: 1. End stage renal disease on hemodialysis. Patient's regular dialysis days are Sunday, Sunday, Sunday. She was dialyzed yesterday. Next hemodialysis session will be tomorrow. 2. Organizing pneumonia. Patient was on IV antibiotics which have been stopped and she has been switched to oral Omnicef today. Management is as per pulmonary team. 3. Hypertension. Blood pressure is acceptable at this time with current dose of Lopressor. 4. Anemia and end stage renal disease. Hemoglobin is 9.9 which is suboptimal. Patient was given a dose of Aranesp 200 mcg yesterday with hemodialysis. Continue to monitor for improvement of hemoglobin. 5. History of Goodpasture disease. Patient gets dialyzed. She has developed end stage renal disease because of Goodpasture's. Recent serology for anti-GBM antibody was negative. Patient is getting high dose Solu-Medrol. Steroids have been tapered down and she has been switched to prednisone. 6. Protein calorie malnutrition. Patient's albumin level is 2.4. I have liberalized her diet to 1.2 gram of protein per kg of body weight.
[2017-01-09] MEDS: TIAGABINE 4 MG PO SCH (12:18)
[2017-01-09] MEDS: BENZONATATE 100 MG CAP PO PRN (12:22)
[2017-01-09] MEDS ORDERED: MAG SULF 1GM/100ML (MAG RUN) 1 GM in APPROPRIATE DILUENT 1 EA IV ONE (12:30)
[2017-01-09] MEDS ORDERED: PRED10TA PO (12:39)
[2017-01-09] MEDS ORDERED: CEFD1CAP8 PO (12:39)
[2017-01-09] MEDS ORDERED: METR500T10 PO (12:39)
[2017-01-09] MEDS ORDERED: ALBU17IN INH (16:18)
[2017-01-09] MEDS ORDERED: IMOD2TAB16 PO (16:18)
[2017-01-09] MEDS ORDERED: ACET-654 PO (16:18)
[2017-01-09] MEDS ORDERED: predniSONE 10 MG TAB PO SCH (21:00)
--- NOTE | 2017-01-16 14:01 | DSES ---
DATE OF ADMISSION: 01/04/2017 DATE OF DISCHARGE: 01/09/2017 BRIEF HISTORY AND PHYSICAL: The patient is a 66-year-old patient who presented with cough and vomiting. She is a resident of [facility]. She undergoes dialysis and had gone for dialysis on the . She developed chills, cough and vomiting, as well as, some diarrhea. Past medical history is significant for Goodpasture disease, irritable bowel syndrome, supraventricular tachycardia (SVT), dyslipidemia, hypertension, secondary hypothyroidism, recurrent Clostridium difficile infections, chronic obstructive pulmonary disease (COPD), obstructive sleep apnea, history of cauda equina syndrome, osteonecrosis of the jaw, iron-deficiency anemia, vitamin D deficiency, intercostal neuronitis, AV fistula, pseudoaneurysm, grade 1 diastolic congestive heart failure, diverticulosis, colonic polyps, history of necrotizing pneumonia, and chronic kidney disease on dialysis. PERTINENT LABS ON ADMISSION: White count 13, hemoglobin 11, platelets 201,000. Sodium 141, potassium 3.7, BUN 18, creatinine 4, glucose 136. Respiratory panel negative. Chest x-ray showed a mass versus infiltrate at the left apex, unchanged, 1.5 cm nodule right base, unchanged, no new infiltrates. HOSPITAL COURSE: 1. The patient was admitted for persistent necrotizing pneumonia, placed on vancomycin and meropenem and followed by the senior systems architect throughout the hospitalization. She is on chronic prednisone. At the time of her discharge, her respiratory status had improved. Dr. Fuentes had recommended tapering her back to her usual maintenance prednisone dose. Further tapering would be through pulmonary in her followup appointments. She had been on meropenem since admission and could be discharged on the Cefdinir that she had come in on. 2. Lung mass. Again, she will be following up with pulmonary as an outpatient for this. 3. End-stage renal disease, on hemodialysis, She continued on her hemodialysis Sunday, Sunday and Sunday while in the hospital. 4. History of Goodpasture's disease. Recently got anti GBM antibodies and MED done, all of which were negative. She is on chronic steroids per pulmonary. 5. Hypertension. Blood pressure is controlled on usual dose of Lopressor. 6. Anemia related to end-stage renal disease. She received Aranesp during hemodialysis. 7. Hypothyroidism, stable on her usual medications. 8. Chronic diarrhea. GI panel was negative. DISPOSITION: The patient was stable for transfer back to [facility]. MEDICATIONS: - prednisone 10 mg daily - hydrocodone one tablet every 4 hours as needed for pain - albuterol 2 puffs every 6 hours as needed for shortness of breath - benzonatate 100 mg three times a day as needed for cough - calcium plus D twice a day - Cetirizine 10 mg at bedtime - cyanocobalamin 1000 mcg at bedtime - cyclobenzaprine 5 mg three times a day for anxiety - Robitussin DM 5 mL every 6 hours as needed for cough - dicyclomine 20 mg four times a day - fish oil 1000 mg daily - Flonase two sprays per nostril daily - guaifenesin ER 600 mg twice a day - lactobacillus 1 tablet daily - levothyroxine 125 mg mcg daily - losartan 50 mg at bedtime - loperamide as needed for diarrhea - metoprolol 50 mg at bedtime - pantoprazole 40 mg twice a day - pravastatin 40 mg at bedtime - prochlorperazine 10 mg every 6 hours as needed for nausea - Refresh eye drops both eyes at bedtime - Steph-Yovani 1 tablet daily - Renvela 800 mg twice a day - simethicone 80 mg four times a day as needed for a gas - sodium polystyrene sulfate 15 grams three times a week as needed for missed dialysis - Gabitril 4 mg daily - vitamin D 50,000 international units monthly - Tylenol 650 mg every 4 hours as needed for pain - Cefdinir 300 mg twice a day until followup with pulmonary - metronidazole 500 mg every 6 hours DISCHARGE DIAGNOSES: 1. Organizing necrotizing pneumonia. 2. Chronic diarrhea. 3. Lung mass. 4. End-stage renal disease, on dialysis. 5. AV fistula. 6. Hypothyroidism.
== END 2017-01-09 14:37 | DRG 177 ==
LOC: EDBD 21:28 → M ED 22:33 → M ED INP 01-04 01:47 → M PCU 01-04 18:45
PROVIDERS: ADMIT Internal Medicine; ATTEND Family Medicine
DX: J85.0 Gangrene and necrosis of lung (principal); N18.6 End stage renal disease; I13.2 Hypertensive heart and chronic kidney disease with heart failure and with stage 5 chronic kidney disease, or end stage renal disease; M31.0 Hypersensitivity angiitis; N25.81 Secondary hyperparathyroidism of renal origin; I50.30 Unspecified diastolic (congestive) heart failure; J44.0 Chronic obstructive pulmonary disease with (acute) lower respiratory infection; D63.1 Anemia in chronic kidney disease; E03.9 Hypothyroidism, unspecified; R19.7 Diarrhea, unspecified; Z79.899 Other long term (current) drug therapy; I77.0 Arteriovenous fistula, acquired; R19.8 Other specified symptoms and signs involving the digestive system and abdomen; K21.9 Gastro-esophageal reflux disease without esophagitis; M81.0 Age-related osteoporosis without current pathological fracture; Z88.8 Allergy status to other drugs, medicaments and biological substances; G47.33 Obstructive sleep apnea (adult) (pediatric); E55.9 Vitamin D deficiency, unspecified

== ENCOUNTER → 2017-01-20 | Outpatient (REF) | payer MEDICARE, MEDICAID ==
[~2017-01-20] MED LIST changes: +ANUS2.5C2 PR; +ARTIFICAL TEARS OU; +CEFD1CAP8 PO; +GUAI100S29 PO; +GUAI1TAB PO; +IMOD2CAP PO; +METR500T10 PO; +NYST-6 TOP; +NYST10CR EXT; +PERC5TAB6 PO; +POLY0.05 OU; +PRED10TA PO; +TYLE325T5 PO; +VITA100072 PO; +[UNRECOGNIZED DRUG - CODE] PO; +compazine PO; +immodium
== END ==
LOC: M SFHCPLAZ 15:54
PROVIDERS: ATTEND Family Medicine
DX: R19.7 Diarrhea, unspecified (principal)

== ENCOUNTER 2017-01-21 17:09 | Inpatient (IN) | payer MEDICARE, MEDICAID ==
[~2017-01-21] VITALS: Ht 167.6 cm; Wt 76.6 kg
[~2017-01-21 17:09] MED LIST changes: -ANUS2.5C2 PR; -ARTIFICAL TEARS OU; -GUAI100S29 PO; -IMOD2CAP PO; -NYST-6 TOP; -NYST10CR EXT; -PERC5TAB6 PO; -TYLE325T5 PO; -VITA100072 PO; -[UNRECOGNIZED DRUG - CODE] PO; -compazine PO; -immodium
[2017-01-21] MEDS ORDERED: IMOD2CAP PO (17:56)
[2017-01-21] MEDS ORDERED: NYST-6 TOP (17:56)
[2017-01-21] MEDS ORDERED: compazine PO (17:56)
[2017-01-21] MEDS ORDERED: BACITAB3 PO (17:56)
[2017-01-21] MEDS ORDERED: ARTIFICAL TEARS OU (17:56)
[2017-01-21] MEDS ORDERED: VITA100072 PO (17:56)
[2017-01-21] MEDS ORDERED: immodium (17:56)
[2017-01-21] MEDS ORDERED: ACETAMINOPHEN TAB 650MG DOSE (2X325MG) PO ONE (18:15)
[2017-01-21 18:18] LABS: VENOUS BASE EXCESS 3.9 (-2.0-2.0); VENOUS O2 SATURATION 67.7 % (60.0-80.0); VENOUS PARTIAL PRESSURE CO2 48.4 mmHg (38.0-50.0); VENOUS PARTIAL PRESSURE O2 36.3 mmHg (30.0-50.0); VENOUS STANDARD HCO3 27.3 MEQ/L; VENOUS TOTAL CO2 30.9 MEQ/L (24.0-28.0)
[2017-01-21 18:27] LABS: BASO % 0.2 % (0.0-1.0); EOS # 0.1 K/mm3 (0.0-0.50); LARGE UNSTAINED CELL # 0.1 K/mm3 (0.0-0.4); LARGE UNSTAINED CELL % 1.1 % (0.0-4.0); LYMPH # 0.9 K/mm3 (1.5-4.5); LYMPH % 12.5 % (24.0-44.0); MEAN CORPUSCULAR HEMOGLOBIN 29.4 pg (27.0-33.0); MEAN CORPUSCULAR HGB CONC 29.8 g/dl (32.0-36.5); MEAN CORPUSCULAR VOLUME 98.5 fl (80.0-96.0); MONO # 0.3 K/mm3 (0.0-0.8); MONO % 3.9 % (0.0-5.0); NEUTROPHILS # 5.2 K/mm3 (1.8-7.7); NEUTROPHILS % 80.3 % (36.0-66.0); RED CELL DISTRIBUTION WIDTH 18.9 % (11.5-14.5); WHITE BLOOD COUNT 6.5 K/mm3 (4.0-10.0)
[2017-01-21 18:30] LABS: INR 1.04
[2017-01-21 18:40] LABS: ADD MORPHOLOGY? YES; PLATELET COUNT, AUTOMATED 91 k/mm3 (150-450)
[2017-01-21 18:42] LABS: ANISOCYTOSIS 2+; HYPOCHROMASIA 1+; POLYCHROMASIA 1+
[2017-01-21 18:44] LABS: ALBUMIN 2.8 GM/DL (3.2-5.2); ALBUMIN/GLOBULIN RATIO 0.97 (1.00-1.93); ALKALINE PHOSPHATASE 96 U/L (45-117); ALT/SGPT 16 U/L (12-78); AMYLASE 47 U/L (25-115); ANION GAP 8 MEQ/L (8-16); AST/SGOT 27 U/L (15-37); BILIRUBIN,DIRECT < 0.1 MG/DL (0.0-0.2); BILIRUBIN,TOTAL 1.1 MG/DL (0.2-1.0); BLOOD UREA NITROGEN 56 MG/DL (7-18); CALCIUM LEVEL 7.3 MG/DL (8.8-10.2); CARBON DIOXIDE LEVEL 30 MEQ/L (21-32); CHLORIDE LEVEL 99 MEQ/L (98-107); CREATININE FOR GFR 9.05 MG/DL (0.55-1.02); GLOMERULAR FILTRATION RATE 4.6 (>45); GLUCOSE, FASTING 146 MG/DL (80-110); POTASSIUM SERUM 4.8 MEQ/L (3.5-5.1); SODIUM LEVEL 137 MEQ/L (136-145); TOTAL PROTEIN 5.7 GM/DL (6.4-8.2)
--- NOTE | 2017-01-21 18:57 | REP ---
Clinical: Sepsis. Shock. Comparison: 01/03/2017. Findings: Mediastinum and cardiac silhouette are within normal limits and stable. Left upper lobe opacity is slightly decreased when compared to prior examination although still significant. Subtle right upper lobe opacity cannot be excluded as well. No further consolidation, effusion, or pneumothorax. Skeletal structures intact. Impression: Left upper lobe opacity minimally decreased from prior examination. Right upper lobe opacity suggested as well. Signed by Junior Delgado MD 01/21/2017 06:48 P
[2017-01-21] MEDS ORDERED: NS 500 ML IV ONE (19:30)
[2017-01-21] MEDS ORDERED: ISOVUE-370 76% 100ML VIAL (Q9967) As Ordered ONE (19:41)
[2017-01-21] MEDS ORDERED: NYST10CR EXT (20:03)
[2017-01-21] MEDS ORDERED: [UNRECOGNIZED DRUG - CODE] PO (20:10)
[2017-01-21] MEDS ORDERED: IMOD2TAB16 PO (20:10)
[2017-01-21] MEDS ORDERED: ANUS2.5C2 PR (20:10)
[2017-01-21] MEDS ORDERED: TYLE325T5 PO (20:22)
[2017-01-21] MEDS ORDERED: ALBU17IN INH (20:22)
[2017-01-21] MEDS ORDERED: GUAI100S29 PO (20:22)
[2017-01-21] MEDS ORDERED: FLUT11IN INH (20:22)
[2017-01-21] MEDS ORDERED: CEFD1CAP8 PO (20:32)
[2017-01-21] MEDS ORDERED: PERC5TAB6 PO (20:32)
[2017-01-21] MEDS ORDERED: FLAG500T PO (20:32)
[2017-01-21] MEDS ORDERED: DEXT75EL PO (20:32)
--- NOTE | 2017-01-21 20:40 | REPUSA ---
CT angiogram of the chest Clinical statement: Chest pain and fever. Technique: Multiple axial CT images were obtained from the thoracic inlet through the upper abdomen a fter a bolus administration of nonionic intravenous contrast. Coronal and sagittal reconstructions we re also obtained. Comparison: 12/22/2016. Findings: The pulmonary arteries are well-opacified with contrast, with no intraluminal filling defec ts to suggest embolism. The thoracic aorta is unremarkable. Thyroid gland is within normal limits. Th ere is no thoracic lymphadenopathy. There is a patchy infiltrate in the right middle lobe. There is a large area consolidation in the left upper lobe with air bronchograms, measuring 4.4 x 5.1 cm. Numer ous pulmonary nodules are seen bilaterally. There is a spiculated nodule in the lateral right upper l obe measuring 2.4 x 1.1 cm. There is a rounded nodule along the periphery of the left lower lobe trey uring 2.0 x 1.4 cm. There is a 1 cm nodule in the left lower lobe. Limited imaging of the upper abdom en is unremarkable. There are no suspicious osseous lesions. Impression: 1. No evidence of pulmonary embolism. 2. The consolidation in the left upper lobe is grossly stable. 3. The 1 cm pulmonary nodule the right lower lobe and 2.4 cm nodule in the lateral right upper lobe a re stable. However, there are multiple new pulmonary nodules. The largest of these is in the lateral left lower lobe. 4. Increasing patchy infiltrate in the right lower lobe. 5. With the increasing number of nodules bilaterally, the findings are suspicious for either metastat ic disease or infectious embolic phenomenon. Follow-up is suggested as clinically indicated.
--- NOTE | 2017-01-21 20:40 | REPUSA ---
CT of the abdomen and pelvis with contrast Clinical statement: Pain. Fever. Technique: Multiple axial CT images were obtained from the base of the lungs through the floor of the pelvis utilizing 5 mm axial slices after administration of nonionic intravenous contrast. Coronal an d sagittal reconstructions were also obtained. Comparison: 12/22/2016. Findings: Chest: The visualized lung bases are clear. Abdomen: The spleen, pancreas, kidneys, gallbladder, and adrenal glands are unremarkable. The liver i s enlarged, measuring 22 cm in diameter. The aorta is within normal limits. There is no evidence of a bdominal lymphadenopathy or ascites. Pelvis: The bowel is unremarkable, with no obstructive or inflammatory changes. The urinary bladder i s within normal limits. The other pelvic structures appear grossly intact. There is no evidence of pe lvic lymphadenopathy or ascites. Bones: There is severe chronic compression fracture L2. Surgical fusion with rods and interpedicular screws are demonstrated at T12, L1, L3, and L4. Impression: No acute abnormality to explain the patient's pain or fever.
[2017-01-21] MEDS ORDERED: ONDANSETRON 4MG/2ML VIAL (J2405) IV PRN (21:45)
[2017-01-21] MEDS ORDERED: PROCHLORPERAZINE 5 MG TAB (S0183) PO PRN (22:00)
[2017-01-21] MEDS ORDERED: HEPARIN SOD (PORCINE) 5000 UNITS/ML VIAL SC SCH (22:00)
[2017-01-21] MEDS ORDERED: BENZONATATE 100 MG CAP PO PRN (22:00)
[2017-01-21] MEDS ORDERED: DEXTROMETHORPHAN 5 ML SYRUP (ROBITUSSIN PEDIATRIC COUGH) PO PRN (22:00)
[2017-01-21] MEDS ORDERED: POLYVINYL ALCOHOL OPHTH SOLN 15 ML(LIQUITEARS) OU PRN (22:00)
[2017-01-21] MEDS ORDERED: CYCLOBENZAPRINE 5MG TABLET PO PRN (22:00)
[2017-01-21] MEDS ORDERED: SIMETHICONE 80 MG CHEW TAB PO PRN (22:00)
[2017-01-21] MEDS ORDERED: guaiFENesin DM LIQ 10ML UD PO PRN (22:00)
[2017-01-21] MEDS ORDERED: ANUSOL HC CREAM 30GM PR PRN (22:00)
[2017-01-21] MEDS ORDERED: ONDANSETRON 4 MG TAB (S0181) PO PRN (22:00)
[2017-01-21 22:19] LABS: MAGNESIUM LEVEL 1.6 MG/DL (1.8-2.4)
[2017-01-21] MEDS ORDERED: VANCOMYCIN HCL 1,000 MG, VIAL MATE ADAPTER 1 EACH in D5W 250 ML IV ONE ×2 (22:30→23:30)
[2017-01-21 22:38] VITALS: BP 127/75
--- NOTE | 2017-01-21 23:15 | PHACANCOPD ---
PHARMACY VANCOMYCIN DOSING Pt Demographics Demographics Patient Age:66 , Weight: , Gender: female Adjusted Body Weight Date: 01/21/17, Adjusted Body Weight: [62.4] Kg Events Past 24 Hours Events Past 24 Hours: NO: Change in CrCl, Dialysis, Diuretic Therapy, Elevation in WBC, Fever, Other, Pending Diagnostics, Pending Procedures Vancomycin Vancomycin Target Ranges: 15-20 mcg/ml Vancomycin Load Y/N: Yes Load Dose Date Time Vancomycin Load Dose: 1000MG Date: 01-21 Time: 0000 Vancomycin Dose Date: 01/21/17. Current Vancomycin Dose: Intermittent Dosing?: Yes Labs Labs Item Value Date Time White Blood Count 6.5 K/mm3 01/21/17 1808 Creatinine 9.05 MG/DL H 01/21/17 1808 Vital Signs Label Value Date Time Patient Temperature 99.8 degrees F 01/21/17 2230 Temperature Source Oral 01/21/17 2230 Micro Microbiology 01/21/17 Blood Culture, Received Pending 01/21/17 Blood Culture, Received Pending 01/21/17 Respiratory Virus Panel (PCR) ([facility]) - Final, Complete Creatinine Clearance Date:01/21/17. Creatinine Clearance: [6 HD]. Pending Labs random 04-03 in am Assessment and Plan Maintaining Current Dose?: Yes Reason for dose change: No Dose Change Pharmacist Note Pharmacist Note Date: 01/21/17. Pharmacist note:Dosed intermittent by levels. First random ordered for 04-03 in am. Will continue to monitor and make adjustments as needed. [facility] Jan 21, 2017 23:15
--- NOTE | 2017-01-21 23:30 | HPE ---
DATE OF ADMISSION: 01/21/2017 PRIMARY CARE PROVIDER: Dr. Jovita Cantu. CHIEF COMPLAINT: Fevers. HISTORY OF PRESENT ILLNESS: This patient is a 66-year-old female with a past medical history significant for Goodpasture, irritable bowel, supraventricular tachycardia, hypertension, end-stage renal disease on hemodialysis, chronic obstructive pulmonary disease (COPD), obstructive sleep apnea (ATIF), history of cauda equina, gastroesophageal reflux disease, anemia, diastolic congestive heart failure, necrotizing pneumonia, was transferred from [facility] to [facility] on 01/21/2017, for acute onset of fever and chills. The patient stated during dinnertime today, the patient started having acute fever and chills, and the patient started having nausea, vomiting, and should could not finish the whole dinner. The patient also complained of diarrhea, and the patient also complained about worsening of the left lower lung pleuritic pain. The patient as a history of left lower lung pleuritic pain since December 2016, and patient has a history of necrotizing pneumonia. The patient has been on chronic antibiotic regimen. Since early June admission, the patient has been taking vancomycin and Flagyl. However, the patient has been having multiple readmissions for exactly the same symptoms. Initially the patient was admitted from 12/22/2016 to 01/03/2017, for fever. CT-guided bronchoscopy was performed and later demonstrated necrotizing pneumonia, and the patient started on the long-term antibiotics. Then the patient's fever resolved near the end of admission. Shortly after the patient's discharge, the patient came back to [facility] within a few hours, and then the patient was admitted from 01/05/2017 to 01/09/2017. Patient also started on the antibiotics and multiple workup has been done, and the patient was discharged home. The patient stated after that discharge, the patient was feeling fine for one week without any significant triggers. The patient started having recurrence of fever on 01/21/2017. Besides the nausea, vomiting, diarrhea, fever, chills, and worsening left pleuritic chest pain, the patient denies any new symptoms. ALLERGIES: BUTALBITAL (hyperactivity). PAST MEDICAL HISTORY: 1. Hypertension. 2. Intercostal neuritis. 3. Hyperlipidemia. 4. Supraventricular tachycardia. 5. Vitamin D deficiency. 6. Iron deficiency. 7. Allergic rhinitis. 8. Gastroesophageal reflux disease. 9. Irritable bowel syndrome. 10. History of diverticulitis. 11. Secondary hypothyroidism. 12. Osteonecrosis of the jaw. 13. Recurrent Clostridium (C.) difficile colitis, requiring stool transplant. 14. Goodpasture disease. 15. End-stage renal disease on hemodialysis on Sunday, Sunday, Sunday schedule. 16. Grade 1 diastolic dysfunction. 17. Asthma. 18. Chronic obstructive pulmonary disease (COPD). 19. Obstructive sleep apnea (ATIF), not on continuous positive airway pressure (CPAP) due to claustrophobia. 20. Claustrophobia. 21. History of cauda equina syndrome. 21. Colonic polyps. 22. Necrotizing pneumonia. PAST SURGICAL HISTORY: 1. Fecal stool transplant. 2. Laminectomy at L1-L2. 3. Arthrodesis of T1 to L4. 4. Bronchoscopy with biopsy. 5. Fistulogram with fistuloplasty. 6. Total abdominal hysterectomy with bilateral salpingo-oophorectomy. 7. Appendectomy. 8. Thyroidectomy. SOCIAL HISTORY: The patient is a former smoker and has a greater than 30-year pack history. Quit more than 10 years ago. Denies alcohol use. Denied recreational drug use. REVIEW OF SYSTEMS: GENERAL: Acute recurrence of fever and chills since dinnertime today. HEENT: No vision changes, no auditory changes. CARDIOVASCULAR: No dull chest pain or palpitations. RESPIRATORY: Pleuritic chest pain at the left lower lung, acute on chronic. No sputum production. No cough. History of COPD and ATIF. GASTROINTESTINAL (GI): Nausea, vomiting and diarrhea. No abdominal pain. NEUROLOGIC: No numbness or tingling. MUSCULOSKELETAL: No joint or muscle swelling. OBJECTIVE: VITAL SIGNS: Temperature 102.3 initially; with Tylenol it is 98.3, pulse is 100, respiratory rate 18, blood pressure is 137/61, pulse oximetry 93% on room air. GENERAL: No sign of acute distress. Alert and oriented times three. HEENT: Normocephalic, atraumatic. Extraocular motor grossly intact. CARDIOVASCULAR: Distant heart sounds. Positive S1, S2. Regular rate. LUNGS: Clear to auscultation bilaterally. I cannot appreciate any wheezes or crackles. ABDOMEN: Soft, nontender, nondistended. Bowel sounds present. No rebound, no guarding. EXTREMITIES: 1+ edema bilaterally. No sign of cyanosis. NEUROLOGIC: Sensation to fine touch grossly intact. Muscle strength 5/5. LABORATORY DATA: WBC 6.5, hemoglobin 11.4, hematocrit 38.2, platelet count 91. Sodium is 137, potassium 4.8, chloride 99, carbon dioxide 30, BUN 56, creatinine 9.05, GFR is 4.6, fasting glucose 146, lactic acid 1.6, calcium 7.3. Total bilirubin 1.1, direct bilirubin less than 0.1. AST 27, ALT 17, alkaline phosphatase 96. Total CK is 60. Troponin I is less than 0.02. C-reactive protein is 7.6. Total protein is 5.7, albumin 2.3, amylase 47. MICROBIOLOGY: Blood cultures pending. Respiratory panel is pending. IMAGING: CT of the chest with contrast shows no evidence of pulmonary embolism. Consolidation of left upper lobe is grossly stable. There is a 1 cm pulmonary nodule in the right lower lobe and 2.4 cm nodule in the lateral right upper lobe. They are stable; however, there are multiple new pulmonary nodules, the largest at the lateral left lower lobe. Increased patchy infiltrate of right lower lobe. There is an increasing number of nodules bilaterally. There is suspicion for metastatic disease or infectious embolic phenomenon. ASSESSMENT AND PLAN: 1. Recurrent fevers. The patient will be admitted to the progressive care unit (PCU) under inpatient status. The patient has an elevated C-reactive protein with persistent fevers. There is also a new finding on the CT of chest. There is increasing patchy infiltrate at the right lower lobe. The patient has multiple recent hospitalizations. Due to concern for hospital-acquired infection, the patient was started on broad-spectrum antibiotics with renal dosing. Due to history of recurrent Clostridium (C.) difficile, the patient will also start on Bacid. However, differential for recurring fever could include the patient's autoimmune disease, patient's history of Goodpasture's. However, the patient is only taking minimal immunosuppressant. The patient differential could be due to increased number of nodules on the bilateral lungs. This a new finding and cannot rule out metastatic disease or infectious embolic event. The patient did have a bronchoscopy performed on 12/25/2016. A biopsy was taken on the left upper lobe mass; however, there are multiple new nodules in the bilateral lungs. It may be beneficial to investigate into those new developing nodules. We will also follow echocardiogram. 2. History of necrotizing pneumonia. The patient has been taking vancomycin and Flagyl as instructed chronically. However, the patient still continues having recurrent fevers despite the regimen. Currently the patient will be on vancomycin and meropenem. 3. Grade 1 diastolic congestive heart failure. Currently the patient does not have any sign of fluid overload. Continue to monitor. 4. End-stage renal disease on hemodialysis. Dialysis days on Sunday, Sunday, Sunday. We will consult nephrology for dialysis tomorrow. 5. History of recurrent C. difficile from antibiotic use. The patient will be on Bacid for now. 6. Chronic obstructive pulmonary disease (COPD). Currently does not have any exacerbation. Continue scheduled and as needed breathing treatments. 7. Obstructive sleep apnea (ATIF) without CPAP. The patient stated she cannot tolerate the noninvasive positive pressure ventilation (NIPPV) due to claustrophobia. The patient will be on the ATIF protocol. 8. History of cauda equina syndrome, stable. 9. History of osteonecrosis of the jaw. 10. Allergic rhinitis on antihistamine. 11. Gastroesophageal reflux disease on proton pump inhibitor (PPI). 12. Iron-deficiency anemia. Continue to monitor. 13. Vitamin D deficiency. 14. Intercostal neuritis. 15. History of diverticulosis. Monitor hemoglobin and hematocrit. No acute bleeding at this moment. 16. Dyslipidemia. Continue statin. 17. History of supraventricular tachycardia. The patient will be monitored on telemetry. 18. History of Goodpasture disease. Patient with low dose of steroid therapy. 19. Irritable bowel syndrome. The patient currently has been having diarrhea. Will follow with C. Difficile to rule out any acute infectious cause as reason for patient's diarrhea. Otherwise, the patient has Imodium to control her diarrhea. 20. History of colonic polyps. 21. History of hiatal hernia on PPI. 22. Deep venous thrombosis (DVT) prophylaxis. The patient is on heparin.
[2017-01-21] MEDS: FLUTICASONE HFA 110 MCG 12 GM INHALER (FLOVENT) INH SCH (23:40)
[2017-01-21] MEDS: PANTOPRAZOLE 40MG TAB (PROTONIX) PO SCH (23:42)
[2017-01-21] MEDS ORDERED: SLF 3 ML SYR IV PRN (23:45)
[2017-01-21] MEDS: CYANOCOBALAMIN 500 MCG TAB PO SCH (23:45)
[2017-01-21] MEDS: METOPROLOL TART 50 MG TAB PO SCH (23:45)
[2017-01-21] MEDS: PRAVASTATIN 20 MG TAB PO SCH (23:45)
[2017-01-21] MEDS: NYSTATIN CREAM 15 GM EXT SCH (23:46)
[2017-01-21] MEDS: CETIRIZINE (ZyrTEC) 10 MG TAB PO SCH (23:46)
[2017-01-21] MEDS: LACTOBACILLUS ACIDOPHILUS CAP (BACID) PO SCH (23:46)
[2017-01-22] VITALS (17 sets, daily range): BP systolic 137–168; BP diastolic 63–82; O2SAT 86–98
[2017-01-22] MEDS: MEROPENEM INJ 500 MG in D5W MINI-BAG PLUS 100 ML IV SCH (02:09)
[2017-01-22] MEDS ORDERED: MAG SULF 1GM/100ML (MAG RUN) 1 GM in APPROPRIATE DILUENT 1 EA IV ONE (02:30)
[2017-01-22] MEDS: ACETAMINOPHEN TAB 650MG DOSE (2X325MG) PO PRN ×2 (04:03→17:05)
[2017-01-22 05:42] LABS: CALCIUM LEVEL 6.7 MG/DL (8.8-10.2); CREATININE FOR GFR 9.4 MG/DL (0.55-1.02); GLOMERULAR FILTRATION RATE 4.4 (>45); POTASSIUM SERUM 4.6 MEQ/L (3.5-5.1); VANCOMYCIN RANDOM 22.2 UG/ML
[2017-01-22 05:49] LABS: MEAN CORPUSCULAR HGB CONC 30.8 g/dl (32.0-36.5); MEAN CORPUSCULAR VOLUME 97.5 fl (80.0-96.0); RED CELL DISTRIBUTION WIDTH 19.2 % (11.5-14.5); WHITE BLOOD COUNT 5.4 K/mm3 (4.0-10.0)
--- NOTE | 2017-01-22 05:51 | PHACANCOPD ---
PHARMACY VANCOMYCIN DOSING Pt Demographics Demographics Patient Age:66 , Weight:71.000 , Gender: female Adjusted Body Weight Date: 01/21/17, Adjusted Body Weight: [62.4] Kg Events Past 24 Hours Events Past 24 Hours: NO: Change in CrCl, Dialysis, Diuretic Therapy, Elevation in WBC, Fever, Other, Pending Diagnostics, Pending Procedures Vancomycin Vancomycin Target Ranges: 15-20 mcg/ml Vancomycin Load Y/N: Yes Load Dose Date Time Vancomycin Load Dose: 1000MG Date: 01-21 Time: 0000 Vancomycin Dose Date: 01/21/17. Current Vancomycin Dose: Intermittent Dosing?: Yes Labs Labs Item Value Date Time Random Vancomycin Level 22.2 UG/ML 01/22/17458 Creatinine 9.40 MG/DL H 01/22/17 045 Vital Signs Label Value Date Time Patient Temperature 98.6 degrees F 01/22/17 0400 Temperature Source Temporal 01/22/17 0400 Micro Microbiology 01/21/17 Blood Culture, Received Pending 01/21/17 Blood Culture, Received Pending 01/21/17 Gastrointestinal Tract Panel (PCR) - Final, Complete 01/21/17 Respiratory Virus Panel (PCR) ([facility]) - Final, Complete Creatinine Clearance Date:01/21/17. Creatinine Clearance: [6 HD]. Pending Labs random - in am Assessment and Plan Maintaining Current Dose?: Yes Reason for dose change: No Dose Change Pharmacist Note Pharmacist Note Date: 01/21/17. Pharmacist note:Dosed intermittent by levels. Random level 22.2, will give no dose at this time. Random ordered for - in am. will dose when level drops below 20. Will continue to monitor and make adjustments as needed. HI [facility] Jan 22, 2017 05:51
[2017-01-22] MEDS ORDERED: VANCOMYCIN INTERMITTENT/PULSE DOSING BY CLINICAL PHARMACIST PER DOSING PROTOCOL XX SCH (06:00)
[2017-01-22] MEDS: LEVOTHYROXINE 0.125 MG TAB (125 MCG) PO SCH (06:22)
[2017-01-22] MEDS: SLF 3 ML SYR IV SCH ×3 (06:23→22:21)
[2017-01-22] MEDS: PANTOPRAZOLE 40MG TAB (PROTONIX) PO SCH ×3 (06:23→22:20)
[2017-01-22] MEDS: LACTOBACILLUS ACIDOPHILUS CAP (BACID) PO SCH ×3 (06:23→22:21)
[2017-01-22] MEDS: guaiFENesin ER 600 MG TAB PO SCH ×2 (06:23→17:06)
[2017-01-22] MEDS: FLUTICASONE HFA 110 MCG 12 GM INHALER (FLOVENT) INH SCH ×2 (07:50→21:21)
[2017-01-22] MEDS: LOPERAMIDE 2 MG CAP PO PRN (08:19)
--- NOTE | 2017-01-22 08:30 | IPNPDOC ---
Subjective Date Seen The patient was seen on 01/22/17. Subjective Chief Complaint/HPI Pt this morning c/o pain in her left chest wall assoc with taking a deep breath , no pain at rest and with normal breathing. General: Reports: Fatigue Constitutional: Denies: Chills, Fever ENT: Denies: Head Aches Pulmonary: Reports: Cough, Dyspnea Cardiovascular: Reports: Chest Pain, Denies: Palpitations Gastrointestinal: Denies: Diarrhea, Nausea, Vomiting Neurological: Reports: Weakness Psych: Reports: Mood Normal Objective Physical Examination General Exam: Positive: Alert, No Acute Distress ENT Exam: Positive: Mucous membr. moist/pink Neck Exam: Positive: Supple, Negative: JVD Chest Exam: Positive: Clear to auscultation Heart Exam: Positive: Normal S1, Normal S2, Rate Normal Abdomen Exam: Positive: Normal bowel sounds, Soft, Negative: Tenderness Extremity Exam: Negative: Edema Psych Exam: Positive: Mental status NL, Mood NL Assessment /Plan Problems (1) Necrotizing pneumonia Status: Acute Discussed With: Patient Problem Specific Plan: Consult Specialist, Monitor Clinically Problem Text: D2 kuldeep/vanco 01/21 - GI/resp panel Pt was admitted and this dx was established in early December, she was d/c home on PO abx for treatment and outpt f/u with Pulm, she was then readmitted a couple days after d/c, she has been home about 10 days now before fever recurred. 01/04/17 d/roxi on cefdinir/metro 01/22 She was due to see Pulm as an outpt today, she has not seen Dr Stringer. I will consult both today, ESR 60 01/22 CT CAP c SHANIKA 44 x 51 mm necrotizing abscess with multiple new pulmonary nodules, concerning for metastases (2) Fever Status: Acute (3) Pulmonary nodules Status: Acute Response to Treatment: Worse Problem Specific Plan: Consult Specialist, Monitor Clinically, Repeat Labs Problem Text: Repeat CT done 01/21, shows more nodules in the chest, will consult Pulm and ID. (4) ATIF (obstructive sleep apnea) Status: Chronic Response to Treatment: Stable Problem Specific Plan: Monitor Clinically Problem Text: Untreated, does not wear CPAP. (5) Anemia of chronic disease Status: Chronic Response to Treatment: Stable Problem Specific Plan: Monitor Clinically Problem Text: Baseline Hgb mid 9 to low 10. 4/3 9.5 (6) End stage renal disease on dialysis Status: Chronic Discussed With: Patient Problem Specific Plan: Consult Specialist, Monitor Clinically Problem Text: Dialysis per Nephrology (7) Goodpasture syndrome Status: Chronic Problem Text: 12/2016 - ANCA profile/GBM Ab/MED Plan/VTE VTE Prophylaxis Ordered?: No (was on heparin this was d/c, enc TEDS, Seq.) VS, I&O, 24H, Fishbone Vital Signs/I&O Vital Signs Date Time Temp Pulse Resp B/P Pulse Ox O2 Delivery O2 Flow Rate FiO2 01/22/17 07:25 99.8 85 20 141/63 95 Room Air 01/22/17 00:00 2.0 I&O- Last 24 Hours up to 6 AM 01/22/17 06:00 Intake Total 1000 ml Output Total 0 ml Balance 1000 ml Laboratory Data 24H LABS Laboratory Tests 2 01/21/17 18:08: Activated Partial Thromboplast Time 32.0, Aspartate Amino Transf (AST/SGOT) 27, Alanine Aminotransferase (ALT/SGPT) 16, Alkaline Phosphatase 96, Total Bilirubin 1.1H, Direct Bilirubin < 0.1, Albumin 2.8L, Albumin/Globulin Ratio 0.97L, Amylase Level 47, Anion Gap 8, Anisocytosis 2+, White Blood Count 6.5, Red Blood Count 3.88L, Hemoglobin 11.4L, Hematocrit 38.2, Mean Corpuscular Volume 98.5H, Mean Corpuscular Hemoglobin 29.4, Mean Corpuscular Hemoglobin Concent 29.8L, Red Cell Distribution Width 18.9H, Platelet Count 91L, Neutrophils (%) (Auto) 80.3H, Lymphocytes (%) (Auto) 12.5L, Monocytes (%) (Auto ) 3.9, Eosinophils (%) (Auto) 2.0, Basophils (%) (Auto) 0.2, Neutrophils # (Auto ) 5.2, Lymphocytes # (Auto) 0.9L, Monocytes # (Auto) 0.3, Eosinophils # (Auto) 0.1, Basophils # (Auto) 0.0, Blood Gas Bicarbonate Standard 27.3, C-Reactive Protein, Quantitative 7.60H, Calcium Level 7.3L, Creatine Kinase MB 1.5, Creatine Kinase MB Relative Index 2.50, Glomerular Filtration Rate 4.6L, Hypochromasia 1+, Lactic Acid Level 1.6, Large Unclassified Cells # 0.1, Large Unclassified Cells % 1.1, Magnesium Level 1.6L, Platelet Estimate DECREASED, Polychromasia 1+, Prothromb Time International Ratio 1.04, Prothrombin Time 13.7 , Total Creatine Kinase 60, Total Protein 5.7L, Troponin I < 0.02, Venous Blood Base Excess 3.9H, Venous Blood pH 7.402, Venous Blood Partial Pressure CO2 48.4 , Venous Blood Partial Pressure O2 36.3, Venous Blood Total Carbon Dioxide 30.9H , Venous Blood HCO3 29.4H, Venous Blood Oxygen Saturation 67.7 01/22/17 04:59: Anion Gap 12, Calcium Level 6.7L, Glomerular Filtration Rate 4.4L, Blood Urea Nitrogen 56H, Creatinine 9.40H, Sodium Level 135L, Potassium Level 4.6, Chloride Level 97L, Carbon Dioxide Level 26, Erythrocyte Sedimentation Rate 60H , Random Vancomycin Level 22.2 CBC/BMP Laboratory Tests 01/21/17 18:08 Red Blood Count 3.88 L, Mean Corpuscular Volume 98.5 H, Mean Corpuscular Hemoglobin 29.4, Mean Corpuscular Hemoglobin Concent 29.8 L, Red Cell Distribution Width 18.9 H, Neutrophils (%) (Auto) 80.3 H, Lymphocytes (%) (Auto ) 12.5 L, Monocytes (%) (Auto) 3.9, Eosinophils (%) (Auto) 2.0, Basophils (%) ( Auto) 0.2, Neutrophils # (Auto) 5.2, Lymphocytes # (Auto) 0.9 L, Monocytes # ( Auto) 0.3, Eosinophils # (Auto) 0.1, Basophils # (Auto) 0.0 01/22/17 04:59 Red Blood Count 3.17 L, Mean Corpuscular Volume 97.5 H, Mean Corpuscular Hemoglobin 30.0, Mean Corpuscular Hemoglobin Concent 30.8 L, Red Cell Distribution Width 19.2 H, Calcium Level 6.7 L Microbiology Microbiology 01/21/17 Blood Culture, Received Pending 01/21/17 Blood Culture, Received Pending 01/21/17 Gastrointestinal Tract Panel (PCR) - Final, Complete 01/21/17 Respiratory Virus Panel (PCR) ([facility]) - Final, Complete VIRGIL LOVE-Hillary Jan 22, 2017 08:30 Wil Lopez M.D. Jan 22, 2017 14:17
[2017-01-22] MEDS ORDERED: HEPARIN 1,000 UNITS/ML 10ML VIAL (FOR RADIOLOGY& DIALYSIS ONLY) IV ONE (11:00)
[2017-01-22] MEDS: DICYCLOMINE 10 MG CAP PO SCH ×3 (13:54→22:20)
[2017-01-22] MEDS: TIAGABINE 4 MG PO SCH (14:04)
[2017-01-22] MEDS: OMEGA-3 1050MG CAPSULE PO SCH (14:04)
[2017-01-22] MEDS: (RENVELA) SEVELAMER **CARBONate** 800 MG TAB PO SCH ×2 (14:04→17:06)
[2017-01-22] MEDS: NYSTATIN CREAM 15 GM EXT SCH ×2 (14:05→22:21)
--- NOTE | 2017-01-22 17:02 | ECHO ---
DATE OF PROCEDURE: 01/22/2017 REFERRING PHYSICIAN: Dr. Haley Huber INDICATION: Fever. HEIGHT: 168 cm WEIGHT: 67 kg MEASUREMENTS: Ventricle septum: 1.41-1.68 cm Posterior wall: 1.36 cm Left ventricle diastole: 4.8 cm Left atrium: 3.6 cm Aortic root: 2.9 cm LVOT: 2.2 cm Aortic valve annulus: 2.2 cm Inferior vena cava: 1.6 cm DOPPLER MEASUREMENTS: Aortic valve velocity: 213 cm/s LVOT velocity: 170 cm/s LVOT VTI: 31.4 cm Mitral E velocity: 71.1 cm/s Mitral A velocity: 104 cm/s Very mild tricuspid regurgitation. Estimated right ventricular systolic pressure at least 34 mmHg assuming a right atrial pressure of 5 mmHg. MITRAL ANNULAR TISSUE DOPPLER: E prime septal: 11.9 cm/s DESCRIPTION: Rhythm was sinus tachycardia. Image quality was fair. This is a 2D, M-mode, color flow Doppler, and pulse waver Doppler examination and included mitral annular tissue Doppler. CONCLUSIONS: 1. Mild concentric left ventricular hypertrophy with superimposed moderate focal hypertrophy of the basal anterior ventricular septum. No dynamic left ventricular outflow tract (LVOT) obstruction. Hyperdynamic left ventricle (LV) systolic function. Left ventricular ejection fraction (LVEF) 80 % by visual estimate. No regional wall motion abnormalities. 2. Tiny pericardial effusion. 3. No vegetation seen on any cardiac valves. All of the cardiac valves were structurally and function normal 4. Suggestive of mild elevation of estimated right ventricle systolic pressure.
--- NOTE | 2017-01-22 17:03 | CR ---
DATE OF CONSULTATION: 01/22/2017 ATTENDING PHYSICIAN: Dr. Ben Morales PRIMARY CARE PROVIDER: Dr. Cantu HISTORY OF PRESENT ILLNESS: This patient is a 66-year-old female with a past medical history significant for Goodpasture's, obstructive sleep apnea, necrotizing pneumonia. The patient was recently hospitalized at [facility] from 01/05/2017 through 01/09/2017. The patient initially presented with fevers, chills, left lung pleuritic pain, and had a history of necrotizing pneumonia. The patient has been on antibiotics, vancomycin and Flagyl for may months since June 2016. CT-guided biopsy in December 2016 demonstrated necrotizing pneumonia and the patient was started on these antibiotics. At discharge, the patient's fever resolved. The patient has had fevers off-and-on since discharge. On 01/21/2017, the patient experienced chest pain and palpitations. The chest pain was sharp and on the left side, up to the shoulder and it was worse with breathing as well as moving. The patient reports having chills, nausea, and vomiting once after dinner. The patient's temperature was taken and it was 102 degrees Fahrenheit. The patient did not have much appetite all day and did not eat too much for dinner. The patient was called to the hospital via ambulance. Today, the patient is feeling better. Examined the patient while in dialysis. The patient reports no shortness of breath or cough on examination. The patient has not coughed up any sputum. No hemoptysis. The patient did have some loose stools but no diarrhea. No watery stool. The patient reports no palpitations or chest pain today. She is still on vancomycin, Flagyl, and cefdinir. The patient reports still having shivering chills and feeling cold today. She also reports feeling sweaty and warm. No fevers this morning reported. She is on hemodialysis for her chronic kidney disease. She does have obstructive sleep apnea but does not use continuous positive airway pressure (CPAP) machine due to claustrophobia. She was unable to tolerate the mask at night. PAST MEDICAL HISTORY: 1. Goodpasture's disease. 2. Obstructive sleep apnea. 3. Osteonecrosis of the jaw. 4. Necrotizing pneumonia, still on treatment. 5. Chronic kidney disease, on hemodialysis. 6. Hyperlipidemia. 7. Hypothyroidism. 8. Hypertension. 9. Gastroesophageal reflux. 10. Supraventricular tachycardia history. 11. Vitamin D deficiency. 12. Iron deficiency. 13. History of recurrent Clostridium (C) difficile infections, required stool transplant. 14. Grade 1 diastolic dysfunction. 15. History of chronic obstructive pulmonary disease (COPD), no pulmonary function tests to confirm this. 16. Total abdominal hysterectomy with bilateral salpingo-oophorectomy. 17. Asthma. CURRENT MEDICATIONS: Include metoprolol, losartan, potassium, fish oil, Bentyl, Gabitril, Renvela, Mucinex, Synthroid, magnesium sulfate, sodium chloride, vancomycin IV, albuterol ipratropium as needed, Tessalon Perle, cyclobenzaprine, hydrochlorothiazide, loperamide, Zofran, artificial tears, Compazine, Mylicon, acetaminophen, cyanocobalamin, Zyrtec, Nystatin, pravastatin, Bacid, fluticasone , cefdinir. ALLERGIES: The patient is allergic to CATS and BUTALBITAL. SOCIAL HISTORY: The patient lives at the [facility] for the past three years. The patient lives alone. The patient has a three-year smoking history with 30-year pack history. Quit 16 years ago. Social alcohol use. No illicit drug use. She was for 25 years with no children. FAMILY HISTORY: No family history of lung disease. REVIEW OF SYSTEMS: GENERAL: Positive for fevers, chills, and sweats. HEENT: Positive for headache today. No visual changes or sensitivity to light. No neck pain or tenderness. CARDIAC: Chest pain and palpitations as mentioned in the history of present illness (HPI). No orthopnea. PULMONARY: No shortness of breath or cough. She has some pleuritic chest pain with breathing. GASTROINTESTINAL: The patient had one episode of vomiting with nausea. The patient has loose stools but no watery diarrhea. No blood in stool. GENITOURINARY: No pain or burning with urination. She was on hemodialysis. HEMATOLOGY: No new lesions or bruises. NEUROLOGIC: No pins or needles in hands or feet and no weakness. PSYCHIATRIC: No depression, anxiety, or mood swings. No suicide ideation. IMMUNOLOGY: She does have seasonal allergies but none at this time. SLEEP: She has a known history of obstructive sleep apnea but is not using a continuous positive airway pressure (CPAP) machine. PHYSICAL EXAMINATION: VITAL SIGNS: Temperature 99.8, pulse 85, respiratory rate 20, blood pressure 141/63, pulse oximetry 95% on room air. GENERAL: She is alert, orientated, and awake. Cooperative and comfortable. Affect and mood are appropriate. HEENT: Sclerae are clear without icterus. Pupils are equal and reactive to light. Mucous membranes are moist. NECK: Supple with no jugular venous distention (JVD). There is no tracheal deviation or masses. No thyromegaly or enlarged lymph nodes. PULMONARY: Decreased breath sounds left upper lobe. No rales, rhonchi, or wheezes. CARDIAC: There is a systolic ejection murmur in the right second intercostal space. ABDOMEN: Soft and nontender. Bowel sounds heard on auscultation. Some mild pain to palpation of the left upper and lower quadrants. No guarding, rigidity, or rebound tenderness. EXTREMITIES: Some mild lower extremity edema. No pitting, clubbing, or cyanosis. NEUROLOGIC: No weakness. SKIN: No new lesions, rashes, or bruises. LABORATORY EVALUATION: The patient is anemic with a hemoglobin of 9.5. On admission, the patient's hemoglobin was 11.4. Platelets have decreased to 82 today. She was admitted with thrombocytopenia and a platelet count of 91. ESR is elevated at 60. Today, the patient's sodium is 135, potassium 4.6, chloride 97, BUN 56, creatinine 9.4, GFR 4.4, fasting glucose of 109, calcium is 6.7. The patient's INR is 1.04. RADIOLOGY: Chest CT performed on 01/21/2017. This was compared with the previous study on 12/22/2016. Chest CT showed necrotic left upper lobe lesion with air pockets is more than 2 cm decrease in size from previous study on 12/22/2016. The right upper lobe lesion also decreased in size. Right lower lobe showed unchanged lesions. However, there is a new left lower lobe lesion measuring 1.8 cm. IMPRESSION: The patient has a persistent necrotizing pneumonia from previous admission. The patient does continue to have fevers and chills, possibly from this infection. The patient has continued to be on cefdinir and IV vancomycin. However, the patient has developed a thrombocytopenia. She has been re-admitted due to fevers and chills. Consulting infectious disease due to these persistent fevers and thrombocytopenia, would like to know if antibiotics are possibly the cause of thrombocytopenia and if there is a better antibiotic to control the patient's pneumonia. Also would like to discover if there is another infection possibly causing these fevers and to rule that out. The patient's CT does show improvement from previous CT of chest. Lesions have decreased in size. She is going to remain on current meropenem at this time until infectious disease consultation. The patient does have a history of diastolic heart failure and we will order a transthoracic echocardiogram, also due to the patient's murmur on examination. We will also reorder blood cultures every time the patient's temperature increases above 101. Also ordering a sputum culture in case patient makes sputum. We will monitor the patient in the hospital as needed. My preceptor for this patient encounter was Dr. Ben Morales. The preceptor was physically present in the room during the encounter and was fully available as needed. All aspects of the patient interview, examination, medical decision making process, and medical care plan development were reviewed and approved by the preceptor. The preceptor is aware and concurs with the plan as stated in the body of this note and will attest to such by his/her co-signature. I, Ben Morales, have conducted an independent history and physical. The resident and I have discussed the assessment and plan as outlined above. Dx: 1. Abnormal Ct - consistent with abscesses. Would look for embolic source given persistence of abnormalities with some new and some improved. Obtain TTE and if unremarkable would proceed with CARA. Would perform additional blood cultures around times of fevers. Continue meropenem for now. 2. Fever - Likely related to #1, no evidence of c diff at this time 3. History of anti-GBM disease - Lung has been biopsied twice with evidence of neutrophilic pneumonia. Most recent anti-GBM is normal. I will continue to follow this difficult case. [facility]
[2017-01-22] MEDS: LOSARTAN 50 MG TAB PO SCH (17:06)
--- NOTE | 2017-01-22 20:42 | CR ---
DATE OF CONSULTATION: 01/22/2017 REQUESTING PHYSICIAN: Dr. Jovita Cantu CONSULTING PHYSICIAN: Dr. Solano REASON FOR CONSULTATION: Management of end stage renal disease and hemodialysis. CHIEF COMPLAINT: The patient presented to the emergency room yesterday with fevers and chills, along with nausea and vomiting. HISTORY OF PRESENT ILLNESS: Rocío Jim is a 66-year-old female with a past medical history of Goodpasture disease causing end stage renal disease, currently on hemodialysis, status post cyclophosphamide and steroids in the past. She is well known to nephrology service from outpatient dialysis center and from recent admissions for fever, chills, and rigors caused by necrotizing pneumonia. She has a mass in the lung, which has been biopsied twice on a previous admission, once with bronchoscopy with the second time with a CT-guided needle biopsy. Both times it came back as organizing pneumonia and every time she responds well to antibiotic and steroids. The patient was recently discharged from the hospital on 01/09/2017 after treatment of pneumonia. However, she presented back to the emergency room yesterday with fever, chills, rigors, feeling weak, tired along with nausea and vomiting. The patient also complained of diarrhea. The patient was admitted for further management of pneumonia. Nephrology service was called for management of end stage renal disease because today is the patient's day of dialysis. PAST MEDICAL HISTORY: 1. End stage renal disease on hemodialysis every Sunday, Sunday and Sunday. 2. Hypertension. 3. Irritable bowel syndrome. 4. History of Goodpasture disease causing renal failure. 5. History of osteonecrosis of the jaw. 6. History of recurrent Clostridium (C) difficile colitis requiring stool transplant. 7. Congestive heart failure (CHF) with grade 1 diastolic dysfunction. 8. Chronic obstructive pulmonary disease (COPD). 9. Obstructive sleep apnea. 10. Necrotizing pneumonia. PAST SURGICAL HISTORY: 1. Status post total abdominal hysterectomy and bilateral salpingo-oophorectomy. 2. Status post appendectomy. 3. Status post thyroidectomy. 4. Status post laminectomy at L1 and L2. 5. Status post fecal transplant. 6. Status post bronchoscopy with biopsy. 7. Status post right upper arm AV fistula creation. ALLERGIES: The patient is allergic to BUTALBITAL. CURRENT INPATIENT MEDICATIONS: The patient's medications include: - magnesium sulfate 1 gram IV times one dose, given today - meropenem 500 mg IV daily - normal saline 500 mL IV bolus times one - vancomycin 1 gram IV - Tylenol as needed - DuoNeb as needed - artificial tears - Tessalon Perles three times a day - Zyrtec 10 mg daily - vitamin B12 1000 mcg at night - Flexeril 5 mg three times a day - Robitussin as needed - Bentyl 20 mg by mouth three times a day - heparin subcutaneous - hydrocortisone - lactobacillus - levothyroxine 125 mcg by mouth daily - Imodium as needed - losartan 50 mg by mouth daily - metoprolol 50 mg at night - Zofran 4 mg every 6 hours as needed for nausea - oxycodone as needed - Protonix 40 mg by mouth twice a day - Pravachol 40 mg at night - Renvela 800 mg by mouth twice a day - Gabitril 4 mg by mouth daily FAMILY HISTORY: No significant family history of end stage renal disease requiring hemodialysis. SOCIAL HISTORY: The patient is a former smoker, quit more than 10 years ago. Denies alcohol abuse or recreational drug use. REVIEW OF SYSTEMS: CONSTITUTIONAL: The patient reported fever with chills, weakness. EYES: She denies any double vision or decreased vision. ENT: She denies any dysphagia or odynophagia or ear discharge. CARDIOVASCULAR: She denies any chest pain or palpitations. She has chest pain at the left lower side. PULMONARY: She reports a history of chronic obstructive pulmonary disease (COPD) and she reports a history of admission for pneumonia. GASTROINTESTINAL: She reports nausea and vomiting, along with some loose stools and decreased appetite. C NEUROLOGIC: She denies any history of seizures or strokes. MUSCULOSKELETAL: She denies any muscle aches or pains. SKIN: She denies any rashes or ulcers. PSYCHIATRIC: No anxiety or depression. HEMATOLOGIC/ONCOLOGIC: She reports a history of anemia secondary to end stage renal disease. ENDOCRINE: She reports a history of hypothyroidism. All other review of systems is negative. PHYSICAL EXAMINATION: GENERAL: The patient is awake, alert, oriented times three. Lying in bed and getting hemodialysis done when I saw the patient. VITAL SIGNS: Temperature is 101.5 degrees Fahrenheit. Blood pressure is 148/67, pulse is 97, respiratory rate of 18, saturating 97% on room air. HEAD AND NECK EXAM: Extraocular muscles intact. Pupils are equal, round and reactive to light. Mucous membranes are moist. Neck is supple. There is no jugular venous distention (JVD). CARDIOVASCULAR: S1, S2. Regular rate. No murmurs, rub or gallop. RESPIRATORY: Chest is clear to auscultation bilaterally. Bilateral equal air entry. No rales or rhonchi. ABDOMEN: Soft. Positive bowel sounds. Nontender. No ascites. No hepatosplenomegaly. EXTREMITIES: No clubbing or cyanosis. Pulses are 2+. The patient has trace edema of the bilateral lower extremities. NEUROLOGIC: No focal neurological deficits. Power is 5/5 in all extremities. AV ACCESS: The patient has a right upper arm AV fistula, which is being used for dialysis at this time. LYMPH NODES: No significant cervical, axillary or inguinal lymphadenopathy. SKIN: No rashes or ulcers. PSYCHIATRIC: Normal mood and affect. LABORATORY REVIEW: Complete blood count (CBC) showed a WBC of 5.4, hemoglobin 9.5, platelets are 82. INR is 1.04. Basic metabolic panel (BMP) showed a sodium of 135, potassium 4.6, chloride 97, bicarbonate 26, BUN 56, creatinine is 9.4, calcium is 6.7. Autoimmune panel is pending. Tuberculosis test is pending. Microbiology: Blood cultures are negative so far. Respiratory viral panel is negative. Gastrointestinal panel is negative. Blood cultures, repeat, are pending. IMAGING: A CAT scan of the chest done yesterday showed no evidence of pulmonary embolism, stable consolidation in the left upper lobe. Multiple new pulmonary nodules. ASSESSMENT: 66-year-old female with past medical history of end stage renal disease on hemodialysis every Sunday, Sunday, Sunday secondary to Goodpasture disease, admitted to the hospital with recurrent fevers. She has recently been treated for pneumonia. Nephrology service following the patient for management of end stage renal disease. PLAN: 1. End stage renal disease, on hemodialysis. Today is the patient's regular day of hemodialysis. She is being dialyzed according to her regular schedule, we shall try to do an ultrafiltration of 2.5 liters as tolerated by her blood pressure. 2. History of recurrent pneumonia and new nodules on the CAT scan of the chest. The patient has already been started on IV antibiotic, meropenem. Dose and duration of antibiotic is as per primary team and pulmonary service. Cultures are negative so far. 3. Anemia and end stage renal disease. The patient will be given a dose of Aranesp with hemodialysis the next time. 4. Hypertension. Continue current dose of losartan and metoprolol. Blood pressure is acceptable at this time. 5. Chronic kidney disease and mineral bone disease. Continue current dose of Renvela 800 mg by mouth twice a day with meals. Thank you for involving us in the care of this patient. We shall be happy to follow the patient along with you tomorrow morning.
--- NOTE | 2017-01-22 20:44 | CR ---
DATE OF CONSULTATION: 01/22/2017 Time patient was seen was at 1600 hours. CONSULTATION REPORT FOR: Dr. Ben Morales DIRECTOR DATA MANAGEMENT: Karen Strniger MD REASON FOR CONSULTATION: Fever, lung abscesses, long-term antibiotic. CHIEF COMPLAINT: Fever and chills with nausea, vomiting, and diarrhea. HISTORY OF PRESENT ILLNESS: 66-year-old female with multiple comorbidities, most significant for recently diagnosed necrotizing pneumonia, end-stage renal disease, hemodialysis on Sunday, Sunday, Sunday, chronic anemia, pulmonary nodules, obstructive sleep apnea, not compliant with continuous positive airway pressure (CPAP) due to claustrophobia, Goodpasture disease, chronic obstructive pulmonary disease (COPD), asthma, grade 1 diastolic dysfunction of the heart, hyperlipidemia, supraventricular tachycardia (SVT), irritable bowel syndrome, secondary hyperparathyroidism, osteonecrosis of the jaw, osteoporosis, 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 Per patient, the fever and chills started yesterday and patient also developed some nausea and vomiting and also diarrhea. In addition, she had sudden chest pain at left lower quadrant of the chest which radiated to the left shoulder. Patient was recently hospitalized between 01/04 and 01/09/2017. She was diagnosed with necrotizing pneumonia and was sent home on cefdinir 300 mg twice a day and also Flagyl 500 mg every 6 hours, started on 01/09/2017, was going to be on the medication for 24 days. In addition, she has been receiving vancomycin through hemodialysis on Sunday, Sunday, and Sunday. She was seen by Dr. Morales during the last hospitalization and she had bronchoscopic alveolar lavage on 12/25/2016. Bronchial brush shows negative for malignancy and the bronchial alveolar lavage shows no growth. She also underwent CT guided fine needle aspiration 2 days later and it showed acute inflammation and organizing pneumonia at the left upper lobe and patchy area of acute inflammation as well as necrotizing neutrophilic debris. Patient's most recent CT angiogram of the chest on 01/21/2017, shows no evidence of pulmonary embolus (PE), however there was consolidation at left upper lobe which was unchanged from previous admission. However, there were lung nodules 1 cm at the right lower lobe and 2.4 cm nodule in the lateral right upper lobe, as well as multiple new pulmonary nodules. There were also increasing patchy infiltrates at the right lower lobe and upon reviewing the CT with radiologist it was found that at the location where she was having the chest pain there appeared to be a new lung nodule. Upon reviewing patient's chart, patient was hospitalized 2 years ago in [place] for diffuse alveolar hemorrhage due to her Goodpasture disease and received plasma exchange and then she was on cyclophosphamide for roughly 3 months. Afterwards, she has been on 5 mg of prednisone, and she has not had recurrent hemoptysis since. In the last admission, she received several days of high dose Solu-Medrol at 500 mL/day. Patient does have irritable bowel syndrome at baseline and has frequent diarrhea as a result. However, her diarrhea has been increased after she has been placed on antibiotic since last admission. However, on this admission patient reports no cough, no sputum production. Denies any abdominal pains. Denies any blood in the urine or stool. Admits to diarrhea and nausea and vomiting, stated the vomitus was clear. Denies any rash , ulcers, lumps, or bumps. Denies any weight changes or recent traveling. ALLERGIES: She is allergic to BUTALBITAL which gives her hyper-wakefulness. HOME MEDICATIONS: Including: - Tylenol 650 mg one tablet by mouth every 4 hours as needed - hydrocodone/acetaminophen 5/325 mg one tablet by mouth every 4 hours as needed - albuterol sulfate two puff inhalation every 6 hours as needed - benzonatate 100 mg one tablet by mouth three times a day as needed - calcium with vitamin D 600/400 mg one tablet by mouth twice a day - cefdinir 300 mg one tablet by mouth twice a day, started on 01/09/2017 for 42 days total - cetirizine 10 mg one tablet by mouth nightly - cyanocobalamin (vitamin B12) 1000 mcg one tablet by mouth nightly - cyclobenzaprine 5 mg one tablet by mouth three times a day as needed - dextromethorphan 5 mL by mouth every 6 hours as needed - dicyclomine 20 mg one tablet by mouth four times a day - fish oil 1000 mg one tablet by mouth daily - Flonase 15 mcg two sprays each nares nightly - fluticasone propionate two puff inhalation twice a day - guaifenesin 600 mg one tablet by mouth every 12 hours - guaifenesin/dextromethorphan 100/10 in every 5 mL, 10 mL by mouth every 6 hours as needed - hydrocortisone 2.5% cream per rectum twice a day as needed - lactobacillus one tablet by mouth daily - levothyroxine 125 mcg one tablet by mouth every morning - lidocaine/prilocaine cream one dose topically three times a week - loperamide (Imodium) 2 mg by mouth as directed after each loose stool - losartan 50 mg one tablet by mouth every evening - metoprolol tartrate 50 mg one tablet by mouth nightly - metoprolol tartrate 50 mg one tablet by mouth four times daily on Sunday, Sunday, , and Sunday - metronidazole 500 mg one tablet by mouth every 6 hours - nystatin 1000 units once externally twice a day applied to rectal area - ondansetron 4 mg one tablet by mouth every 6 hours as needed - oxycodone/acetaminophen 5/325 mg one tablet by mouth every 8 hours as needed - pantoprazole 40 mg one tablet by mouth twice a day - polyvinyl alcohol eye drops two drops in each eye every 2 hours as needed - pravastatin 40 mg one tablet by mouth nightly - prochlorperazine 10 mg one tablet by mouth every 6 hours as needed - Refresh P.M. one ointment in each eye nightly - Steph-Yovani one tablet by mouth daily - Renvela 800 mg one tablet by mouth twice a day - simethicone 80 mg one tablet by mouth four times a day as needed - sodium polystyrene sulfonate 15 grams by mouth three times a week as needed - tiagabine hydrochloride 4 mg one tablet by mouth daily - vitamin D 50,000 units one tablet by mouth monthly PAST MEDICAL HISTORY: Includin. End-stage renal disease, on hemodialysis Sunday, Sunday, Sunday. 2. Chronic anemia. 3. Pulmonary nodules. 4. Necrotizing pneumonia. 5. Obstructive sleep apnea, not compliant with CPAP due to claustrophobia. 6. COPD. 7. Asthma. 8. Goodpasture disease. 9. "Intercostal neuritis." 10. Grade 1 diastolic dysfunction. 11. Hyperlipidemia. 12. SVT. 13. Vitamin D deficiency. 14. Iron deficiency. 15. Allergic rhinitis. 16. Gastroesophageal reflux disease (GERD). 17. Irritable bowel syndrome with chronic diarrhea. 18. Diverticulosis with history of diverticulitis. 19. Secondary hyperparathyroidism. 20. Osteonecrosis of the jaw. 21. Osteoporosis. 22. Recurrent C. difficile, had a stool transplant in 2013. 23. Claustrophobia. 24. History of severe spinal stenosis and cauda equina syndrome. 25. Colonic polyps. 26. Hypothyroidism PAST SURGICAL HISTORY: Includin. Fecal stool transplant on 03/09/2014. 2. Laminectomy at L1-L2. 3. Arthrodesis of T1 to L4. 4. Bronchoscopy alveolar lavage on 12/25/2016. 5. CT guided fine needle biopsy of the lung on 12/27/2016. 6. Fistulogram with fistuloplasty. 7. Total abdominal hysterectomy with bilateral oophorectomy. 8. Appendectomy. 9. Thyroidectomy. 10. Kidney biopsy in December 2014. SOCIAL HISTORY: The patient is a resident of [facility]. Does not smoke, quit 10 years ago, used to smoke one pack per day for 30 years. Denies any drinking or recreational drug use. FAMILY HISTORY: Noncontributory. REVIEW OF SYSTEMS: GENERAL: Patient denies any recent weight changes. Admits to fever and chills. Denies any recent traveling, any sick contacts. However, she was recently hospitalized in December and has been on chronic antibiotics since. HEENT: Denies any changes with vision, smell, hearing, or taste. Denies any sore throat. Denies any cough. Denies sputum production, however she has been on cough suppressant. CARDIOVASCULAR: Admits to chest pain on the left side which appears to be pleuritic which radiates to her left shoulder also. It was sharp and started suddenly. PULMONARY: Patient does have COPD and asthma at baseline and also Goodpasture disease. Denies any trouble breathing however. GASTROINTESTINAL (GI): Denies any abdominal pains. Admits to nausea and vomiting of clear vomitus. Admits to diarrhea which appears to be chronic, however has worsened since patient started on antibiotics; Flagyl, cefdinir, and also vancomycin. Patient does have a history of irritable bowel syndrome. GENITOURINARY (): Patient denies any problem with urination, however she does not make urine and she has been on hemodialysis Sunday, Sunday, Sunday since 2 years ago. MUSCULOSKELETAL: Denies any pain anywhere else. ENDOCRINE: Denies any heat or cold intolerance, any polydipsia or polyuria. HEMATOLOGY/ONCOLOGY: Denies any weight changes. Denies any bleeding anywhere. Admits to easy bruising. NEUROLOGIC: Denies any weakness on any one side of her body, any change of sensations. PSYCHIATRIC: Denies any anxiety or depression, however she does have claustrophobia. PHYSICAL EXAMINATION: VITAL SIGNS: Temperature 100.7, pulse 102, respirations 18, blood pressure 148/67, oxygen was saturating at 95% on room air. GENERAL: Patient is an obese, elderly female who was alert, awake, oriented times three. Does not appear to be in distress. Lying comfortably in bed with head elevated at a 45 degree angle. HEENT: Normocephalic, atraumatic. Extraocular motors intact. Mucous moist. Neck supple. No neck lymphadenopathy. CARDIOVASCULAR: Tachycardic. S1, S2. No murmur, rubs, or gallops. LUNGS: Clear to auscultation bilaterally. No wheezes, rales, or rhonchi. Patient's left lower chest was, however, tender to palpation. ABDOMEN: Positive bowel sounds. Soft, nontender, nondistended. No peritoneal signs. No ecchymosis. EXTREMITIES: No edema, clubbing, or cyanosis. SKIN: Warm and dry. NEUROLOGIC: Cranial nerves II-XII intact. No focal neurologic deficit. In addition, there were no lesions. No ulcers were noted on extremities. LABORATORY DATA: WBC 5.4, hemoglobin 9.5, hematocrit 30.9, with platelet count of only 82. MCV was 97.5. Sodium 135, potassium 4.6, chloride 97, bicarbonate 26, anion gap 12, BUN 56, creatinine 9.4, GFR was 6.4, fasting glucose 109, calcium 6.7. Patient had a venous blood gas (VBG) on admission, shows pH 7.4, pCO2 48.4, pO2 36.3, with oxygen saturating at 97.7% on venous blood with base excess of 3.9. Patient's coagulation shows PT 13.7, INR 1, PTT 32. Vancomycin trough was 22.2. Patient's ANCA screening; p-ANCA, x-ANCA, and ANCA are pending. Glomerular basement membrane antibody are pending. Heparin-induced antibody is currently pending. Patient quantiferon TB test in December was negative. Blood cultures times two are pending. Gastroenterology panel was negative. Respiratory panel was negative. Blood culture from yesterday is currently pending. Patient's mycobacterial culture, fungal smear, and fungal culture from 12/25/2016, is currently pending. Patient's CT of abdomen and pelvis with contrast from 01/21/2017, shows no acute abnormalities. Patient had a CT chest with contrast on 01/21/2017, shows no PE. There, however was consolidation in the left upper lobe which is grossly stable compared to December, 1 cm pulmonary nodule on the right lower lobe and a 2.4 cm nodule in the lateral right upper lobe are stable. However, there are multiple new pulmonary nodules, largest one was in the lateral left lower lobe which appeared to be where the pain was for the patient. Also increased patchy infiltrates at the right lower lobe. Increased number of nodules bilaterally. Findings are suspicious for either metastatic disease or infectious embolic phenomenon. Patient had a chest x-ray on 01/21/2017, shows left upper lobe opacity, minimally decreased from prior exam, and a right upper lobe opacity suggested as well. 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 Fever and chills, as well as multiple new nodules bilaterally, most significantly a new nodule at the left lateral lower lobe where patient's chest pain resides. At this point, patient did receive one dose of vancomycin when she came to the hospital. She is currently on meropenem 500 mg IV daily, last dose was this morning at 2 a.m. Before patient came to the hospital, she was also on cefdinir 300 mg twice a day since 01/09/2017, as well as Flagyl 500 mg every 6 hours since that time. She also received vancomycin through hemodialysis Sunday , Sunday, Sunday for patient's necrotizing pneumonia. At this point, will stop Flagyl causing severe NVD. At this point, all cultures have been negative. Blood cultures have been negative, rest of the gastrointestinal (GI) panel. Bronchial alveolar lavage from December was negative except for GPC on Gm stain. However, the fungal smear and fungal culture were pending and also mycobacterium culture pending from 12/25/2016. Patient's tuberculosis (TB) test was negative back in December. Will repeat a QuantiFERON Gold for possible tuberculosis (TB). At this point echocardiogram was ordered as well and it was negative. Will repeat a transesophageal echocardiogram which will be performed by Dr. Dupree tomorrow, we appreciate his help to rule out vegetations. If patient's transesophageal echocardiogram is negative, will consider a repeat fine needle aspiration of the left lower lobe. At this point, patient's etiology is unclear. Will continue to monitor. 2. Thrombocytopenia with a platelet count of 82. Back in December it was 170. Likely secondary to medication versus heparin-induced thrombocytopenia (HIT). Patient's heparin-induced antibody is currently pending. 3. Nausea, vomiting, and diarrhea. Patient does have chronic diarrhea at baseline with her irritable bowel syndrome. However, per patient, it has been worse since she has been on antibiotics. Suspecting side effect from Flagyl. Will hold Flagyl at this point and continue to monitor patient. DISPOSITION: At this point, unclear etiology for patient's fever since she has been on antibiotics for the past several weeks since 01/09/2017. Possible septic emboli. Will continue to monitor. Followup transesophageal echocardiogram (CARA). If transesophageal echocardiogram (CARA) is negative, will possibly perform another fine needle aspiration of the left lower lobe. Patient has been discussed with attending doctor, Dr. Stringer. My preceptor for this patient encounter was Dr. Karen Stringer. The preceptor was physically present in the building during the encounter and was fully available. As needed, all aspects of the patient interview, examination, medical decision making process, and medical care plan development were reviewed and approved by the preceptor. The preceptor is aware and concurs with the plan as stated in the body of this note and will attest to such by her cosignature. SOL
[2017-01-22] MEDS: IPRATROPIUM 0.5MG/ALBUTEROL 2.5MG INH SOL UD 3ML (DUONEB)(J7620) NEB PRN (21:20)
--- NOTE | 2017-01-22 21:33 | ECGEPIP ---
Stationary ECG Study [facility] - ED Test Date: 2017-01-21 Pat Name: JESUS LE Department: Room: - Gender: F Family Caseworker: donald : [id number] Requested By: Cindy Godwin Order Number: [id number] Reading MD: Cindy Godwin Measurements Intervals [place] Rate: 97 P: 53 CT: 158 QRS: -4 QRSD: 86 T: 44 QT: 337 QTc: 430 Interpretive Statements SINUS RHYTHM WITH OCCASIONAL SUPRAVENTRICULAR PREMATURE COMPLEXES NSTTW ABNORMALITY DECREASED RATE 02/27/15 Electronically Signed On 01-22-2017 21:32:33 EDT by Cindy Godwin
[2017-01-22] MEDS: PRAVASTATIN 20 MG TAB PO SCH (22:19)
[2017-01-22] MEDS: METOPROLOL TART 50 MG TAB PO SCH (22:19)
[2017-01-22] MEDS: CYANOCOBALAMIN 500 MCG TAB PO SCH (22:20)
[2017-01-22] MEDS: CETIRIZINE (ZyrTEC) 10 MG TAB PO SCH (22:20)
[2017-01-23] VITALS (14 sets, daily range): BP systolic 94–139; BP diastolic 47–63; O2SAT 92–100
[2017-01-23] MEDS: MEROPENEM INJ 500 MG in D5W MINI-BAG PLUS 100 ML IV SCH (03:09)
[2017-01-23 05:21] LABS: REASON FOR REVIEW PLATELET MORPHOLOGY
[2017-01-23 05:26] LABS: INR 1.09
[2017-01-23 05:35] LABS: MEAN CORPUSCULAR HEMOGLOBIN 29.3 pg (27.0-33.0); MEAN CORPUSCULAR HGB CONC 30.1 g/dl (32.0-36.5); MEAN CORPUSCULAR VOLUME 97.6 fl (80.0-96.0); RED CELL DISTRIBUTION WIDTH 19.4 % (11.5-14.5); WHITE BLOOD COUNT 4.4 K/mm3 (4.0-10.0)
[2017-01-23 05:36] LABS: CREATININE FOR GFR 5.98 MG/DL (0.55-1.02); GLOMERULAR FILTRATION RATE 7.5 (>45); POTASSIUM SERUM 4.6 MEQ/L (3.5-5.1); VANCOMYCIN RANDOM 12.3 UG/ML
[2017-01-23] MEDS: guaiFENesin ER 600 MG TAB PO SCH ×2 (06:12→17:40)
[2017-01-23] MEDS: LEVOTHYROXINE 0.125 MG TAB (125 MCG) PO SCH (06:12)
[2017-01-23] MEDS: SLF 3 ML SYR IV SCH ×3 (06:13→20:31)
[2017-01-23] MEDS: FLUTICASONE HFA 110 MCG 12 GM INHALER (FLOVENT) INH SCH ×2 (07:09→20:28)
[2017-01-23] MEDS ORDERED: VANCOMYCIN HCL 750 MG, VIAL MATE ADAPTER 1 EACH in D5W 250 ML IV SCH (08:00)
--- NOTE | 2017-01-23 08:37 | PHACANCOPD ---
PHARMACY VANCOMYCIN DOSING Pt Demographics Demographics Patient Age:66 , Weight:69.400 , Gender: female Adjusted Body Weight Date: 01/21/17, Adjusted Body Weight: [62.4] Kg Events Past 24 Hours Events Past 24 Hours: NO: Change in CrCl, Dialysis, Diuretic Therapy, Elevation in WBC, Fever, Other, Pending Diagnostics, Pending Procedures Vancomycin Vancomycin Target Ranges: 15-20 mcg/ml Vancomycin Load Y/N: Yes Load Dose Date Time Vancomycin Load Dose: 1000MG Date: 01-21 Time: 0000 Vancomycin Dose Date: 01/21/17. Current Vancomycin Dose: [750MG AFTER HD] Intermittent Dosing?: Yes Labs Labs Item Value Date Time Creatinine 4.09 MG/DL H 01/03/17 2250 Creatinine 7.10 MG/DL H # 01/05/17 0525 White Blood Count 13.4 K/mm3 H 01/03/17 2250 White Blood Count 9.4 K/mm3 01/05/17 0525 Random Vancomycin Level 12.3 UG/ML 01/23/17 0506 Creatinine 5.98 MG/DL H 01/23/17 0506 Micro Microbiology 01/22/17 Blood Culture, Received Pending 01/22/17 Blood Culture, Received Pending 01/21/17 Blood Culture - Preliminary, Resulted No growth after 24 hours . All specim... 01/21/17 Blood Culture - Preliminary, Resulted No growth after 24 hours . All specim... 01/21/17 Gastrointestinal Tract Panel (PCR) - Final, Complete 01/21/17 Respiratory Virus Panel (PCR) (MOISÉS) - Final, Complete Creatinine Clearance Date:01/21/17. Creatinine Clearance: [6 HD]. Pending Labs random 01-23 in am Assessment and Plan Maintaining Current Dose?: No Reason for dose change: Other (pt tolerating vanco) Pharmacist Note Pharmacist Note Date: 01/23/17. Pharmacist note: random came in today at 12.3mcg/ml. We will switch pt to historical therapy of 750mg after hd. We will continue to monitor and adjust dose as needed. Date: 01/21/17. Pharmacist note:Dosed intermittent by levels. Random level 22.2, will give no dose at this time. Random ordered for 01-23 in am. will dose when level drops below 20. Will continue to monitor and make adjustments as needed. ROSALEE RAMSEY PHARMACY Jan 23, 2017 08:37
[2017-01-23] MEDS: ACETAMINOPHEN TAB 650MG DOSE (2X325MG) PO PRN ×2 (08:46→20:32)
[2017-01-23] MEDS: DICYCLOMINE 10 MG CAP PO SCH ×3 (08:46→20:32)
[2017-01-23] MEDS: METOPROLOL TART 50 MG TAB PO SCH ×2 (08:47→20:33)
[2017-01-23] MEDS: OMEGA-3 1050MG CAPSULE PO SCH (08:47)
[2017-01-23] MEDS: NYSTATIN CREAM 15 GM EXT SCH ×2 (08:48→20:34)
[2017-01-23] MEDS: LACTOBACILLUS ACIDOPHILUS CAP (BACID) PO SCH ×3 (08:48→20:32)
--- NOTE | 2017-01-23 09:00 | IPNPDOC ---
Subjective Date Seen The patient was seen on 01/23/17. Subjective Chief Complaint/HPI Pt this morning continues to c/o L sided pleuritic CP, usually assoc with inspiration. No new concerns. General: Denies: Fatigue Constitutional: Reports: Chills, Fever Pulmonary: Reports: Dyspnea, Denies: Cough Cardiovascular: Reports: Chest Pain (pleuritic L sided CP) Gastrointestinal: Reports: Nausea (comes and goes), Denies: Diarrhea, Vomiting Psych: Reports: Mood Normal Objective Physical Examination General Exam: Positive: Alert, No Acute Distress ENT Exam: Positive: Mucous membr. moist/pink Neck Exam: Positive: Supple, Negative: JVD Chest Exam: Positive: Clear to auscultation Heart Exam: Positive: Normal S1, Normal S2, Rate Normal Abdomen Exam: Positive: Normal bowel sounds, Soft, Negative: Tenderness Extremity Exam: Negative: Edema Psych Exam: Positive: Mental status NL, Mood NL Assessment /Plan Problems (1) Necrotizing pneumonia Status: Acute Discussed With: Patient Problem Specific Plan: Consult Specialist, Monitor Clinically Problem Text: 01/23 - Pt has been seen by pulm and ID, concern for Endocarditis, Pt remains on Meropenem, but Vanco and Flagyl D/c'd per Dr Stringer. Plan for CARA today. TTE neg for vegetations. Tmax 101.5, ESR 70 up from 60, CRP 12.2 up from 7.6 01/22 She was due to see Pulyaneli as an outpt today, she has not seen Dr Stringer. Pt was admitted and this dx was established in early December, she was d/c home on PO abx for treatment and outpt f/u with Pulm, she was then readmitted a couple days after d/c, she has been home about 10 days now before fever recurred. 01/22 CT CAP c SHANIKA 44 x 51 mm necrotizing abscess with multiple new pulmonary nodules, concerning for metastases (2) Fever Status: Acute Problem Text: see above (3) Pulmonary nodules Status: Acute Response to Treatment: Worse Problem Specific Plan: Consult Specialist, Monitor Clinically, Repeat Labs Problem Text: 01/23 - see above. 01/22 - Repeat CT done 01/21, shows more nodules in the chest, will consult Pulm and ID. (4) ATIF (obstructive sleep apnea) Status: Chronic Response to Treatment: Stable Problem Specific Plan: Monitor Clinically Problem Text: Untreated, does not wear CPAP. (5) Anemia of chronic disease Status: Chronic Response to Treatment: Stable Problem Specific Plan: Monitor Clinically Problem Text: Baseline Hgb mid 9 to low 10. 4/3 9.5 (6) End stage renal disease on dialysis Status: Chronic Discussed With: Patient Problem Specific Plan: Consult Specialist, Monitor Clinically Problem Text: Dialysis per Nephrology (7) Goodpasture syndrome Status: Chronic Problem Text: 12/2016 - ANCA profile/GBM Ab/MED Plan/VTE VTE Prophylaxis Ordered?: No (was on heparin this was d/c, enc TEDS, Seq.) VS, I&O, 24H, Fishbone Vital Signs/I&O Vital Signs Date Time Temp Pulse Resp B/P Pulse Ox O2 Delivery O2 Flow Rate FiO2 01/23/17 07:40 100.2 83 20 133/63 99 Nasal Cannula 2.0 I&O- Last 24 Hours up to 6 AM 01/23/17 06:00 Intake Total 940 ml Output Total 2500 ml Balance -1560 ml Laboratory Data 24H LABS Laboratory Tests 2 01/22/17 18:14: 01/23/17 05:06: Anion Gap 7L, C-Reactive Protein, Quantitative 12.20H, Blood Urea Nitrogen 28H, Creatinine 5.98H, Sodium Level 136, Potassium Level 4.6, Chloride Level 99, Carbon Dioxide Level 30, Calcium Level 7.0L, Differential Pathologist's Review PLATELET MORPHOLOGY, Differential Slide Review Report, Erythrocyte Sedimentation Rate 70H, Fibrinogen 669H, Glomerular Filtration Rate 7.5L, Lactate Dehydrogenase 207, Magnesium Level 2.0, Peripheral Blood Smear Path Consult PERIPHERAL SMEAR, Prothromb Time International Ratio 1.09, Prothrombin Time 14.2, Random Vancomycin Level 12.3 CBC/BMP Laboratory Tests 01/23/17 05:06 Calcium Level 7.0 L, Red Blood Count 3.14 L, Mean Corpuscular Volume 97.6 H, Mean Corpuscular Hemoglobin 29.3, Mean Corpuscular Hemoglobin Concent 30.1 L, Red Cell Distribution Width 19.4 H Microbiology Microbiology 01/22/17 Blood Culture, Received Pending 01/22/17 Blood Culture, Received Pending 01/21/17 Blood Culture - Preliminary, Resulted No growth after 24 hours . All specim... 01/21/17 Blood Culture - Preliminary, Resulted No growth after 24 hours . All specim... 01/21/17 Gastrointestinal Tract Panel (PCR) - Final, Complete 01/21/17 Respiratory Virus Panel (PCR) ([facility]IS[facility]) - Final, Complete VIRGIL LOVE PA-C Jan 23, 2017 09:00
[2017-01-23] MEDS: (RENVELA) SEVELAMER **CARBONate** 800 MG TAB PO SCH ×2 (11:51→17:36)
[2017-01-23] MEDS: TIAGABINE 4 MG PO SCH (11:51)
[2017-01-23] MEDS ORDERED: CHECK TO SEE IF PATIENT IS RECEIVING DIALYSIS TODAY AND REFER TO THE VANCOMYCIN ORDER XX SCH (16:00)
--- NOTE | 2017-01-23 16:57 | IPN ---
DATE: 01/23/2017 TIME PATIENT WAS SEEN: 1500. Patient has been seen and examined at bedside. Patient had another episode of elevation of temperature yesterday afternoon around 4 p.m. and another mild elevation of temperature around 7:40. Temperature was 100.2. Patient also feels some chills; however, she denies any trouble breathing. Admits to chest pain still, about the same as day prior. Denies any sputum production. Still admits to some nausea and three times of diarrhea today; however, she stated nausea and diarrhea have been getting better. Denies any blood in the urine or stool. Denies any other current new complaints. VITAL SIGNS: Temperature was 98.5, pulse 72, respirations 20, blood pressure 94/47, oxygen was saturating at 99% of 2 liters of nasal cannula. GENERAL: Patient is an obese elderly female who was alert, awake, oriented times three. Does not appear to be in distress. Lying comfortable in bed with head elevated at 45 degrees. HEENT: Normocephalic, atraumatic. Extraocular motor intact. Mucous membranes moist. NECK: Supple. No neck lymphadenopathy. CARDIOVASCULAR: Regular rate and rhythm, S1, S2. A 3/6 systolic heart murmur. LUNGS: Clear to auscultation bilaterally. No wheezes, rales, or rhonchi. ABDOMEN: Positive bowel sounds, soft, nontender, nondistended. No peritoneal signs. No ecchymosis. EXTREMITIES: There was mild nonpitting edema in bilateral hands. No pitting edema in bilateral lower extremities. Patient's right arteriovenous (AV) fistula has positive thrills. SKIN: Warm and dry. NEUROLOGIC: Cranial nerves II-XII. No focal neurologic deficit. LABORATORY DATA: WBC 4.4, hemoglobin 9.2, hematocrit 30.7, MCV was 97.6, platelet count was 88. ESR has increased from 60 to 70. Patient's peripheral smear shows anemia and acute onset of thrombocytopenia. Clinical correlation to rule out acute consumption versus drug-induced thrombocytopenia. Sodium was 136, potassium 4.6, chloride 99, bicarbonate 30, BUN 28, creatinine 5.98, GFR 7.5%, glucose 97, calcium 7, magnesium 2. LDH 207. CRP was elevated from 7.6 to 12.2. Patient's coagulation shows PT 14.2, INR 1.09. Fibrinogen 669. Vancomycin trough shows it was 12.3. Heparin-induced antibody is pending. MED, p-ANCA, x-ANCA, ANCA are pending. GBM antibody is pending. HIV is pending. TB test QuantiFERON is pending. Blood cultures times two show now growth after 24 hours. There is another set of blood cultures times two that show no growth after 48 hours. ASSESSMENT AND PLAN: A 66-year-old female with multiple comorbidities, recently admitted for necrotizing pneumonia with a history of Goodpasture disease, chronic obstructive pulmonary disease (COPD), asthma, and recurrent Clostridium (C) difficile colitis, status post stool transplant in 2013 as well as end-stage renal disease, on hemodialysis Sunday, Sunday, Sunday, presented with fever and chills as well as multiple new nodules bilaterally, most significantly at the left lower lobe. Patient continued to have temperature yesterday and also this morning. At this point, we agree with continuation of vancomycin. Continue patient on meropenem 500 mg intravenous (IV) daily as well. Upon more detailed investigation, it appeared that patient was on a high dose of Flagyl 500 mg every 6 hours, as well as Cefdinir 300 mg twice a day appears to be a higher dose for patient's end-stage renal disease. Patient's transesophageal echocardiogram has been done. Did not show any vegetations. A repeat transesophageal echocardiogram has been ordered. It has been pushed back to tomorrow. Will followup with the result. In addition, Doppler duplex of bilateral upper extremities has been ordered due to patient did have some swelling of bilateral hands, and it could be a source of possible deep vein thrombosis (DVT). In addition, QuantiFERON Gold for TB has been ordered. Will followup. Peripheral smear did not show any abnormal morphology. Differentials, including drug-induced versus consumption. Will continue to follow. In addition, patient's nausea, vomiting, and diarrhea have been improved since discontinuation of Flagyl. Patient has been discussed with attending doctor, Dr. Stringer. My preceptor for this patient encounter was Dr. Karen Stringer. The preceptor was physically present in the building during the encounter and was fully available as needed. All aspects of the patient interview, examination, medical decision making process, and medical care plan development were reviewed and approved by the preceptor. The preceptor is aware and concurs with the plan as stated in the body of this note and will attest to such by his/her co-signature.
[2017-01-23] MEDS: LOSARTAN 50 MG TAB PO SCH (17:40)
--- NOTE | 2017-01-23 17:52 | REP ---
Bilateral upper extremity duplex venous ultrasound: History: Hand swelling. Septic emboli to the lungs. Findings: In the right upper extremity and a dialysis graft or stent is seen, which appears to be patent. No adjacent fluid collection or inflammation is seen. The brachial, basilic, cephalic, axillary, subclavian and internal jugular vein segments are anechoic and compressible in both upper extremities. There is no evidence of upper extremity venous thrombosis. Impression: Negative bilateral upper extremity duplex venous ultrasound. No evidence of upper extremity venous thrombosis. Signed by Reynaldo Alcala MD 01/23/2017 06:07 P
[2017-01-23] MEDS: IPRATROPIUM 0.5MG/ALBUTEROL 2.5MG INH SOL UD 3ML (DUONEB)(J7620) NEB PRN (20:28)
[2017-01-23] MEDS: PANTOPRAZOLE 40MG TAB (PROTONIX) PO SCH (20:32)
[2017-01-23] MEDS: CETIRIZINE (ZyrTEC) 10 MG TAB PO SCH (20:33)
[2017-01-23] MEDS: PRAVASTATIN 20 MG TAB PO SCH (20:33)
[2017-01-23] MEDS: CYANOCOBALAMIN 500 MCG TAB PO SCH (20:33)
[2017-01-24] VITALS (10 sets, daily range): BP systolic 128–139; BP diastolic 58–104; O2SAT 96–100
[2017-01-24] MEDS: MEROPENEM INJ 500 MG in D5W MINI-BAG PLUS 100 ML IV SCH (02:00)
[2017-01-24] MEDS: ACETAMINOPHEN TAB 650MG DOSE (2X325MG) PO PRN ×2 (03:45→20:19)
[2017-01-24 06:00] LABS: MEAN CORPUSCULAR HEMOGLOBIN 29.7 pg (27.0-33.0); MEAN CORPUSCULAR HGB CONC 30.5 g/dl (32.0-36.5); MEAN CORPUSCULAR VOLUME 97.2 fl (80.0-96.0); RED CELL DISTRIBUTION WIDTH 18.8 % (11.5-14.5); WHITE BLOOD COUNT 4.3 K/mm3 (4.0-10.0)
[2017-01-24] MEDS: guaiFENesin ER 600 MG TAB PO SCH ×2 (06:10→17:12)
[2017-01-24] MEDS: OMEGA-3 1050MG CAPSULE PO SCH (06:10)
[2017-01-24] MEDS: LEVOTHYROXINE 0.125 MG TAB (125 MCG) PO SCH (06:10)
[2017-01-24 06:11] LABS: CALCIUM LEVEL 7.6 MG/DL (8.8-10.2); CREATININE FOR GFR 7.83 MG/DL (0.55-1.02); GLOMERULAR FILTRATION RATE 5.5 (>45); MAGNESIUM LEVEL 1.8 MG/DL (1.8-2.4); POTASSIUM SERUM 4.4 MEQ/L (3.5-5.1)
[2017-01-24] MEDS: DICYCLOMINE 10 MG CAP PO SCH ×3 (06:11→20:14)
[2017-01-24] MEDS: LACTOBACILLUS ACIDOPHILUS CAP (BACID) PO SCH ×3 (06:11→20:15)
[2017-01-24] MEDS: SLF 3 ML SYR IV SCH ×3 (06:11→20:16)
[2017-01-24] MEDS: PANTOPRAZOLE 40MG TAB (PROTONIX) PO SCH ×2 (06:11→20:16)
[2017-01-24] MEDS: NYSTATIN CREAM 15 GM EXT SCH ×2 (06:12→20:19)
--- NOTE | 2017-01-24 06:45 | IPN ---
DATE: 01/23/2017 SUBJECTIVE: The patient was seen and examined at the bedside today in the morning. The patient was feeling fine. She tolerated the hemodialysis procedure well yesterday. The patient reports that she is scheduled for a transesophageal echocardiogram in the morning for possible vegetation causing recurrent anemias secondary to septic emboli. REVIEW OF SYSTEMS: The patient reports a low grade fever in the last 24 hours, otherwise, she denies any headache, nausea, vomiting, chest pain, shortness of breath, pain in abdomen, constipation, diarrhea. The rest of review of systems is negative. OBJECTIVE: VITAL SIGNS: Temperature 100.2 degrees Fahrenheit. Blood pressure 133/63. Pulse 83. Respiratory rate 18. Saturating 99% on nasal cannula at 2 liters per minute. INTAKE AND OUTPUT: Urine output is not recorded. The patient got hemodialysis done yesterday. Ultrafiltration was 2.5 liters. Weight on the bed scale is 69.4 kg. PHYSICAL EXAMINATION: GENERAL: Patient is awake, alert and oriented times three, laying in the bed. No apparent distress. HEAD AND NECK EXAM: Extraocular muscles intact. Pupils equally round and reactive to light. Neck is supple. There is no jugular venous distention. CARDIOVASCULAR: S1, S2, regular rate, no murmur, rub or gallop. RESPIRATORY: Chest is clear to auscultation bilaterally. Bilateral equal air entry. No rales or rhonchi. ABDOMEN: Soft. Positive bowel sounds. Nontender. No ascites. No organomegaly. EXTREMITIES: No clubbing or stenosis. Pulses are 2+. Patient has a trace edema of the bilateral lower extremities. CENTRAL NERVOUS SYSTEM: No focal neurological deficit. Power is 5/5 in all extremities. AV ACCESS: Patient has a right upper arm AV fistula with positive thrill and bruit. PSYCHIATRIC: Normal mood and affect. LAB REVIEW: CBC showed a WBC of 4.4, hemoglobin 9.2, and platelets are 88. BMP showed sodium of 136, potassium 4.6, chloride 99, bicarbonate 30, BUN 28, creatinine 5.9. C-reactive protein is 12.2. MICROBIOLOGY: Blood cultures are negative so far. CURRENT MEDICATIONS: Patient's medications were all reviewed by me. She continues to be on IV vancomycin and meropenem. There is no other change in the medications today as compared with yesterday. ASSESSMENT: 66-year-old female with past medical history of end stage renal disease secondary to Goodpasture disease, currently on hemodialysis every Sunday, Sunday and Sunday admitted to the hospital with recurrent fevers and pneumonia. Nephrology service following the patient for management of end stage renal disease. PLAN: 1. End stage renal disease, on hemodialysis. Patient's regular days are Sunday, Sunday and Sunday. She will be dialyzed tomorrow as per her regular schedule. No urgent need of hemodialysis today. 2. Anemia and end stage renal disease. Hemoglobin is suboptimal. Patient will get a dose of Aranesp with hemodialysis tomorrow. 3. Recurrent pneumonia and new nodules on the CAT scan of the chest. Patient is already on IV vancomycin and meropenem. The patient is pending transesophageal echocardiogram tomorrow to rule out any vegetations. 4. Hypertension. Blood pressure is acceptable at this time. Continue current dose of losartan and metoprolol.
[2017-01-24] MEDS ORDERED: DARBEPOETIN 100 MCG/0.5 ML *DIALYSIS* SYRINGE (J0882) IV SCH (08:00)
[2017-01-24] MEDS: FLUTICASONE HFA 110 MCG 12 GM INHALER (FLOVENT) INH SCH ×2 (08:22→21:08)
[2017-01-24] MEDS: LOPERAMIDE 2 MG CAP PO PRN (08:32)
--- NOTE | 2017-01-24 09:36 | PHACANCOPD ---
PHARMACY VANCOMYCIN DOSING Pt Demographics Demographics Patient Age:66 , Weight:70.800 , Gender: female Adjusted Body Weight Date: 01/21/17, Adjusted Body Weight: [62.4] Kg Vancomycin Vancomycin Target Ranges: 15-20 mcg/ml Vancomycin Load Y/N: Yes Load Dose Date Time Vancomycin Load Dose: 1000MG Date: 01-21 Time: 0000 Vancomycin Dose Date: 01/21/17. Current Vancomycin Dose: [750MG AFTER HD] Intermittent Dosing?: Yes Labs Micro Microbiology 01/22/17 Blood Culture - Preliminary, Resulted No growth after 24 hours . All specim... 01/22/17 Blood Culture - Preliminary, Resulted No growth after 24 hours . All specim... 01/21/17 Blood Culture - Preliminary, Resulted No Growth after 48 hours. All Specime... 01/21/17 Blood Culture - Preliminary, Resulted No Growth after 48 hours. All Specime... 01/21/17 Gastrointestinal Tract Panel (PCR) - Final, Complete 01/21/17 Respiratory Virus Panel (PCR) ([facility]) - Final, Complete Creatinine Clearance Date:01/21/17. Creatinine Clearance: [6 HD]. Pending Labs random 01-23 in am Assessment and Plan Maintaining Current Dose?: Yes Reason for dose change: No Dose Change Pharmacist Note Pharmacist Note 01/24/17: The patient remains on vancomycin 750mg IV HD for the treatment of necrotizing pneumonia. WBC is currently WNL, and the patient has been mildly febrile within the past 24 hours. Blood cultures are pending. I have scheduled a random level to be drawn 01/26/17 AM, prior to the patient's next dialysis session to ensure adequate levels are being maintained. We will continue to monitor and make further adjustments as needed. Date: 01/23/17. Pharmacist note: random came in today at 12.3mcg/ml. We will switch pt to historical therapy of 750mg after hd. We will continue to monitor and adjust dose as needed. Date: 01/21/17. Pharmacist note:Dosed intermittent by levels. Random level 22.2, will give no dose at this time. Random ordered for 01-23 in am. will dose when level drops below 20. Will continue to monitor and make adjustments as needed. SHREY[facility] Jan 24, 2017 09:36
--- NOTE | 2017-01-24 10:46 | IPNPDOC ---
Subjective Date Seen The patient was seen on 01/24/17. Subjective Chief Complaint/HPI The patient is a 66-year-old female admitted with a reason for visit of FEVER. Events since last encounter Still with Left lower rib pain with deep breaths. Stil has chronic diarrhea, unchanged from baseline. No cough. No SOB. Constitutional: Denies: Chills, Fever Pulmonary: Denies: Cough, Dyspnea Cardiovascular: Denies: Chest Pain, Orthopnea, Palpitations Gastrointestinal: Reports: Diarrhea, Denies: Abdominal Pain, Constipation, Nausea, Vomiting Objective Physical Examination General Exam: Positive: Alert, No Acute Distress ENT Exam: Positive: Mucous membr. moist/pink Neck Exam: Positive: Supple, Negative: JVD Chest Exam: Positive: Clear to auscultation Heart Exam: Positive: Normal S1, Normal S2, Rate Normal Abdomen Exam: Positive: Normal bowel sounds, Soft, Tenderness (tender in LUQ and lower ribs. no guard or rebound) Extremity Exam: Negative: Edema Psych Exam: Positive: Mental status NL, Mood NL Assessment /Plan Problems (1) Necrotizing pneumonia Status: Acute Discussed With: Patient Problem Specific Plan: Consult Specialist, Monitor Clinically Problem Text: 01/24 - multiple abscesses in lungs concerning for embolic source. CARA scheduled for 3 pm today ID has seen patient in consultation. continue Meropenem and Vanco 01/23 - Pt has been seen by pulyaneli and ID, concern for Endocarditis, Pt remains on Meropenem, but Vanco and Flagyl D/c'd per Dr Stringer. Plan for CARA today. TTE neg for vegetations. Tmax 101.5, ESR 70 up from 60, CRP 12.2 up from 7.6 01/22 She was due to see Pulyan[facility] as an outpt today, she has not seen Dr Stringer. Pt was admitted and this dx was established in early December, she was d/c home on PO abx for treatment and outpt f/u with Pulyan[facility], she was then readmitted a couple days after d/c, she has been home about 10 days now before fever recurred. 01/22 CT CAP c SHANIKA 44 x 51 mm necrotizing abscess with multiple new pulmonary nodules, concerning for metastases (2) Fever Status: Acute Problem Text: see above B/C negative GI panel negative (3) Pulmonary nodules Status: Acute Response to Treatment: Worse Problem Specific Plan: Consult Specialist, Monitor Clinically, Repeat Labs Problem Text: 01/23 - see above. 01/22 - Repeat CT done 01/21, shows more nodules in the chest, will consult Pulm and ID. (4) ATIF (obstructive sleep apnea) Status: Chronic Response to Treatment: Stable Problem Specific Plan: Monitor Clinically Problem Text: Untreated, does not wear CPAP. (5) Anemia of chronic disease Status: Chronic Response to Treatment: Stable Problem Specific Plan: Monitor Clinically Problem Text: 01/24 - anemia related to end stage renal disease. Hgb has dropped to 8.9 today. Monitor trend. Defer to Nephrology Baseline Hgb mid 9 to low 10. (6) End stage renal disease on dialysis Status: Chronic Discussed With: Patient Problem Specific Plan: Consult Specialist, Monitor Clinically Problem Text: Dialysis per Nephrology (7) Goodpasture syndrome Status: Chronic Problem Text: 12/2016 - ANCA profile/GBM Ab/MED Plan/VTE VTE Prophylaxis Ordered?: No (was on heparin this was d/c, enc TEDS, Seq.) VTE Exclusion Pharmacological: Thrombocytopenia VS, I&O, 24H, Fishbone Vital Signs/I&O Vital Signs Date Time Temp Pulse Resp B/P Pulse Ox O2 Delivery O2 Flow Rate FiO2 01/24/17 08:00 Nasal Cannula 2.0 01/24/17 06:00 96 01/24/17 04:00 99.1 68 18 133/63 I&O- Last 24 Hours up to 6 AM 01/24/17 05:59 Intake Total 1200 ml Output Total 0 ml Balance 1200 ml Laboratory Data 24H LABS Laboratory Tests 2 01/24/17 05:10: Anion Gap 11, C-Reactive Protein, Quantitative 10.50H, Blood Urea Nitrogen 39H, Creatinine 7.83H, Sodium Level 135L, Potassium Level 4.4, Chloride Level 97L, Carbon Dioxide Level 27, Calcium Level 7.6L, Erythrocyte Sedimentation Rate 66H , Glomerular Filtration Rate 5.5L, Magnesium Level 1.8 CBC/BMP Laboratory Tests 01/24/17 05:10 Calcium Level 7.6 L, Red Blood Count 2.99 L, Mean Corpuscular Volume 97.2 H, Mean Corpuscular Hemoglobin 29.7, Mean Corpuscular Hemoglobin Concent 30.5 L, Red Cell Distribution Width 18.8 H Microbiology Microbiology 01/22/17 Blood Culture - Preliminary, Resulted No growth after 24 hours . All specim... 01/22/17 Blood Culture - Preliminary, Resulted No growth after 24 hours . All specim... 01/21/17 Blood Culture - Preliminary, Resulted No Growth after 48 hours. All Specime... 01/21/17 Blood Culture - Preliminary, Resulted No Growth after 48 hours. All Specime... 01/21/17 Gastrointestinal Tract Panel (PCR) - Final, Complete 01/21/17 Respiratory Virus Panel (PCR) ([facility]) - Final, Complete FLAVIO LANDON PA-C Jan 24, 2017 10:46
[2017-01-24] MEDS: TIAGABINE 4 MG PO SCH (12:00)
[2017-01-24] MEDS: (RENVELA) SEVELAMER **CARBONate** 800 MG TAB PO SCH ×2 (12:00→17:12)
[2017-01-24] MEDS ORDERED: LIDOCAINE VISCOUS 2% SOLN 15ML UDC As Ordered ONE (15:15)
[2017-01-24] MEDS ORDERED: MIDAZOLAM INJ 2 MG/2 ML VIAL (J2250) As Ordered ONE (15:15)
[2017-01-24] MEDS: LOSARTAN 50 MG TAB PO SCH (17:11)
[2017-01-24] MEDS: METOPROLOL TART 50 MG TAB PO SCH (20:15)
[2017-01-24] MEDS: CETIRIZINE (ZyrTEC) 10 MG TAB PO SCH (20:15)
[2017-01-24] MEDS: PRAVASTATIN 20 MG TAB PO SCH (20:15)
[2017-01-24] MEDS: CYANOCOBALAMIN 500 MCG TAB PO SCH (20:15)
--- NOTE | 2017-01-24 23:56 | IPN ---
DATE: 01/24/2017 SUBJECTIVE: Patient was seen and examined at the bedside today in the morning during hemodialysis. Patient was tolerating the hemodialysis procedure well. She is nothing by mouth today for transesophageal echocardiogram in the afternoon. VITAL SIGNS: Temperature 97.9 degrees Fahrenheit, blood pressure 130/62, pulse 89, respiratory rate 18, saturating 98% on nasal cannula. INTAKE/OUTPUT: Urine output is not recorded. Weight in the bed scale is 70.7 kg today. PHYSICAL EXAMINATION: GENERAL: Patient is awake, alert, oriented times three, laying in bed, getting hemodialysis done, in no apparent distress. HEAD and NECK EXAM: Extraocular muscles intact. Pupils equally round and reactive to light. Neck is supple, there is no jugular venous distention (JVD). CARDIOVASCULAR: S1, S2, regular rate. No murmur, rub, or gallop. RESPIRATORY: Chest is clear to auscultation bilaterally. Bilateral equal air entry. No rales or rhonchi. ABDOMEN: Soft, positive bowel sounds, nontender. No ascites. No organomegaly. EXTREMITIES: No clubbing or cyanosis. Pulses are 2+. CENTRAL NERVOUS SYSTEM (DROSSER): No focal neurological deficit. Power is 5/5 in all extremities. ARTERIOVENOUS (AV) ACCESS: Patient has a right upper arm AV fistula which is being used for dialysis and no issues during hemodialysis. PSYCHIATRIC: Normal mood and affect. LABORATORY REVIEW: CBC showed WBC 4.3, hemoglobin 8.9, platelets 84. BMP showed sodium 135, potassium 4.4, chloride 97, bicarbonate 27, BUN 39, creatinine 7.8, calcium 7.6, magnesium 1.8, C-reactive protein 10.5. HIV antibody is negative. TB QuantiFERON is pending. MICROBIOLOGY: Blood cultures are negative so far. CURRENT MEDICATIONS: Patient's medications were all reviewed by me. There is no change in the medication today as compared with yesterday. ASSESSMENT: 66-year-old female with past medical history of end-stage renal disease secondary to Goodpasture disease, currently on hemodialysis every Sunday, Sunday, Sunday, admitted to the hospital for the third time with recurrent fevers and pneumonia. Nephrology service following the patient for management of end-stage renal disease. PLAN: 1. End-stage renal disease on hemodialysis. Patient is getting hemodialysis according to her regular schedule today. We shall try to do an ultrafiltration of around 2 liters as tolerated by her blood pressure since patient is nothing by mouth today. 2. Anemia in end-stage renal disease. Patient's hemoglobin is below target. Patient is going to get a dose of Aranesp with hemodialysis today. 3. Recurrent pneumonia and new nodules on the CT scan of the chest. Patient is already on IV vancomycin and meropenem. She is nothing by mouth today for transesophageal echocardiogram to rule out cardiac vegetation. 4. Hypertension. Blood pressure is acceptable at this time. Continue current antihypertensive regimen.
[2017-01-25] VITALS (23 sets, daily range): BP systolic 115–138; BP diastolic 56–67; O2SAT 88–100
[2017-01-25] MEDS: MEROPENEM INJ 500 MG in D5W MINI-BAG PLUS 100 ML IV SCH (02:57)
[2017-01-25] MEDS: SLF 3 ML SYR IV SCH ×3 (05:13→22:00)
[2017-01-25] MEDS: LEVOTHYROXINE 0.125 MG TAB (125 MCG) PO SCH (05:14)
[2017-01-25] MEDS: guaiFENesin ER 600 MG TAB PO SCH ×2 (05:14→17:20)
[2017-01-25 05:38] LABS: MEAN CORPUSCULAR HEMOGLOBIN 29.5 pg (27.0-33.0); MEAN CORPUSCULAR HGB CONC 30.7 g/dl (32.0-36.5); MEAN CORPUSCULAR VOLUME 96.1 fl (80.0-96.0); RED CELL DISTRIBUTION WIDTH 18.6 % (11.5-14.5); WHITE BLOOD COUNT 3.9 K/mm3 (4.0-10.0)
[2017-01-25 05:53] LABS: CALCIUM LEVEL 7.8 MG/DL (8.8-10.2); CREATININE FOR GFR 5.13 MG/DL (0.55-1.02); GLOMERULAR FILTRATION RATE 8.9 (>45); MAGNESIUM LEVEL 1.7 MG/DL (1.8-2.4); POTASSIUM SERUM 4.3 MEQ/L (3.5-5.1)
[2017-01-25] MEDS: FLUTICASONE HFA 110 MCG 12 GM INHALER (FLOVENT) INH SCH ×2 (07:49→20:40)
[2017-01-25] MEDS: OMEGA-3 1050MG CAPSULE PO SCH (08:35)
[2017-01-25] MEDS: METOPROLOL TART 50 MG TAB PO SCH ×2 (08:36→21:55)
[2017-01-25] MEDS: LACTOBACILLUS ACIDOPHILUS CAP (BACID) PO SCH ×3 (08:38→21:55)
[2017-01-25] MEDS: PANTOPRAZOLE 40MG TAB (PROTONIX) PO SCH ×2 (08:38→21:55)
[2017-01-25] MEDS: DICYCLOMINE 10 MG CAP PO SCH ×3 (08:38→21:55)
[2017-01-25] MEDS: ACETAMINOPHEN TAB 650MG DOSE (2X325MG) PO PRN ×2 (08:38→22:00)
[2017-01-25] MEDS: NYSTATIN CREAM 15 GM EXT SCH ×2 (08:39→22:00)
--- NOTE | 2017-01-25 08:56 | IPNPDOC ---
Subjective Date Seen The patient was seen on 01/25/17. Subjective Chief Complaint/HPI The patient is a 66-year-old female admitted with a reason for visit of FEVER. Events since last encounter Pt without new concerns. She states that she isn't aware of the results of the CARA. General: Denies: Fatigue Constitutional: Denies: Chills, Fever ENT: Denies: Head Aches Pulmonary: Denies: Cough, Dyspnea Cardiovascular: Reports: Chest Pain, Denies: Palpitations Gastrointestinal: Denies: Diarrhea, Nausea, Vomiting Neurological: Reports: Weakness Psych: Reports: Mood Normal Objective Physical Examination General Exam: Positive: Alert, No Acute Distress ENT Exam: Positive: Mucous membr. moist/pink Neck Exam: Positive: Supple, Negative: JVD Chest Exam: Positive: Clear to auscultation (diminished) Heart Exam: Positive: Normal S1, Normal S2, Rate Normal Abdomen Exam: Positive: Normal bowel sounds, Soft, Tenderness (tender in LUQ and lower ribs. no guard or rebound) Extremity Exam: Negative: Edema Psych Exam: Positive: Mental status NL, Mood NL Assessment /Plan Problems (1) Necrotizing pneumonia Status: Acute Discussed With: Patient Problem Specific Plan: Consult Specialist, Monitor Clinically Problem Text: 01/25 - CAAR done 01/24, no results available in chart. On Meropenem/ Vanco with dialysis. 01/24 - multiple abscesses in lungs concerning for embolic source. CARA scheduled for 3 pm today ID has seen patient in consultation. continue Meropenem and Vanco 01/23 - Pt has been seen by pulm and ID, concern for Endocarditis, Pt remains on Meropenem, but Vanco and Flagyl D/c'd per Dr Stringer. Plan for CARA today. TTE neg for vegetations. Tmax 101.5, ESR 70 up from 60, CRP 12.2 up from 7.6 01/22 She was due to see Pulm as an outpt today, she has not seen Dr Stringer. Pt was admitted and this dx was established in early December, she was d/c home on PO abx for treatment and outpt f/u with Pulm, she was then readmitted a couple days after d/c, she has been home about 10 days now before fever recurred. 01/22 CT CAP c SHANIKA 44 x 51 mm necrotizing abscess with multiple new pulmonary nodules, concerning for metastases (2) Fever Status: Acute Problem Text: see above B/C negative GI panel negative (3) Pulmonary nodules Status: Acute Response to Treatment: Worse Problem Specific Plan: Consult Specialist, Monitor Clinically, Repeat Labs Problem Text: 01/23 - see above. 01/22 - Repeat CT done 01/21, shows more nodules in the chest, will consult Pulm and ID. (4) ATIF (obstructive sleep apnea) Status: Chronic Response to Treatment: Stable Problem Specific Plan: Monitor Clinically Problem Text: Untreated, does not wear CPAP. (5) Anemia of chronic disease Status: Chronic Response to Treatment: Stable Problem Specific Plan: Monitor Clinically Problem Text: 01/24 - anemia related to end stage renal disease. Hgb has dropped to 8.9 today. Monitor trend. Defer to Nephrology Baseline Hgb mid 9 to low 10. (6) End stage renal disease on dialysis Status: Chronic Discussed With: Patient Problem Specific Plan: Consult Specialist, Monitor Clinically Problem Text: Dialysis per Nephrology (7) Goodpasture syndrome Status: Chronic Problem Text: 12/2016 - ANCA profile/GBM Ab/MED Plan/VTE VTE Prophylaxis Ordered?: No (was on heparin this was d/c, enc TEDS, Seq.) VTE Exclusion Pharmacological: Thrombocytopenia VS, I&O, 24H, Fishbone Vital Signs/I&O Vital Signs Date Time Temp Pulse Resp B/P Pulse Ox O2 Delivery O2 Flow Rate FiO2 01/25/17 08:36 80 132/62 01/25/17 08:16 Nasal Cannula 2.0 01/25/17 07:56 99.1 18 99 I&O- Last 24 Hours up to 6 AM 01/25/17 06:00 Intake Total 640 ml Output Total 2200 ml Balance -1560 ml Laboratory Data 24H LABS Laboratory Tests 2 01/25/17 05:08: Erythrocyte Sedimentation Rate 83H 01/25/17 05:09: Anion Gap 6L, C-Reactive Protein, Quantitative 9.40H, Blood Urea Nitrogen 18#, Creatinine 5.13H, Sodium Level 135L, Potassium Level 4.3, Chloride Level 99, Carbon Dioxide Level 30, Calcium Level 7.8L, Glomerular Filtration Rate 8.9L, Magnesium Level 1.7L CBC/BMP Laboratory Tests 01/25/17 05:08 Red Blood Count 3.00 L, Mean Corpuscular Volume 96.1 H, Mean Corpuscular Hemoglobin 29.5, Mean Corpuscular Hemoglobin Concent 30.7 L, Red Cell Distribution Width 18.6 H 01/25/17 05:09 Calcium Level 7.8 L Microbiology Microbiology 01/22/17 Blood Culture - Preliminary, Resulted No Growth after 48 hours. All Specime... 01/22/17 Blood Culture - Preliminary, Resulted No Growth after 48 hours. All Specime... 01/21/17 Blood Culture - Preliminary, Resulted No Growth after 72 hours. All specime... 01/21/17 Blood Culture - Preliminary, Resulted No Growth after 72 hours. All specime... 01/21/17 Gastrointestinal Tract Panel (PCR) - Final, Complete 01/21/17 Respiratory Virus Panel (PCR) ([facility]) - Final, Complete VIRGIL LOVE PA-C Jan 25, 2017 08:56
--- NOTE | 2017-01-25 09:22 | T-ECHO ---
DATE OF PROCEDURE: 01/24/2017 REFERRING PHYSICIAN: Dr. Green PREPROCEDURE DIAGNOSIS AND INDICATION: Fever of unknown origin. POSTPROCEDURE DIAGNOSIS: Fever of unknown origin. PROCEDURE PERFORMED: Transesophageal echocardiogram. SURGEON: Dr. Cipriano Dupree COMMUNITY LIVING SPECIALIST: None. ANESTHESIA: Light conscious sedation: midazolam 4 mg IV. FINDINGS: Normal transesophageal echocardiogram (CARA). No vegetations. COMPLICATIONS: None. PROCEDURE DESCRIPTION: The rhythm appeared to be sinus. The patient received viscous lidocaine to gargle at the start of the procedure. She received a total of 4 mg of midazolam IV for light conscious sedation. The patient tolerated the procedure well without any immediate complications. Esophageal intubation was accomplished without difficulty using a Andriy multiplane 2D phase array transesophageal echocardiogram probe. The left ventricle appeared normal in size and systolic function. Left ventricular ejection fraction (LVEF) was 75% by visual estimate. The right ventricle appeared normal in size and systolic function. No mass or thrombi were seen within the atria or their appendages. The atrial septum was intact anatomically and by color flow Doppler. The aortic valve was 3-cuspid and was structurally and functionally normal. The mitral valve was structurally and functionally normal. No mitral regurgitation. Tricuspid leaflets were only moderately well visualized and appeared normal. The pulmonic valve was only moderately well visualized and appeared normal. No pericardial effusion identified. Distal aortic arch and descending thoracic aorta were normal. CONCLUSIONS: 1. No vegetations on any of the cardiac valves. 2. Normal LV systolic function. LVEF 75% by visual estimate. No regional wall motion abnormalities. 3. Otherwise normal appearing CARA.
--- NOTE | 2017-01-25 11:32 | REP ---
CT of the chest without IV contrast: Comparisons are the chest CTs dated 01/21/2017, 12/22/2016 and 09/10/2015. The patient underwent CT-guided biopsy of the left upper lobe mass on 12/27/2016. There is a large left upper lobe pleural-based mass, not significantly changed from 01/21/2017 or 12/22/2016 . There is a pleural-based left upper lobe mass also not significantly changed from 01/21/2017 or 12/22/2016 . The right lower lobe nodules are unchanged from 12/22/2016. There is a new right upper lobe lung nodule measuring 12 mm on image 34. There is a new left lower lobe nodular density measuring 19 mm on image 66, not present 12/22/2016, new lung nodule versus atelectasis. There are small bilateral pleural effusions, not present on 12/22/2016. There is no mediastinal lymph node enlargement. There are several normal-sized mediastinal nodes, unchanged. There is no axillary lymph node enlargement. In the absence of IV contrast study is insensitive for hilar lymph node enlargement. The unenhanced thoracic aorta is unremarkable. Cardiac size is normal. There is mild pericardial thickening versus pericardial effusion measuring up to 4 mm in depth anteriorly. The visualized unenhanced upper abdominal contents are unremarkable. There is no adrenal mass. Impression: There are new small bilateral pleural effusions. The bilateral upper lobe lung masses are not significantly changed. The right lower lobe lung nodules are not significantly changed. There is a new right upper lobe lung nodule measuring 12 mm on image 34. There is a new left lower lobe nodular density measuring 19 mm on image 66. Signed by Karan Mclain MD 01/25/2017 11:24 A
[2017-01-25] MEDS: (RENVELA) SEVELAMER **CARBONate** 800 MG TAB PO SCH ×2 (11:53→17:20)
[2017-01-25] MEDS: TIAGABINE 4 MG PO SCH (11:53)
--- NOTE | 2017-01-25 12:04 | IPN ---
DATE: 01/25/2017 SUBJECTIVE: Patient was seen and examined at the bedside today in the morning. She denies any active complaints. She got the transesophageal echocardiogram (CARA) done yesterday, however she does not know the results. Patient got hemodialysis done yesterday and she tolerated the hemodialysis procedure well. REVIEW OF SYSTEMS: The patient denies any fevers, chills, rigors, headache, nausea, vomiting, chest pain shortness of breath, pain in the abdomen, constipation or diarrhea. Rest of review of systems is negative. VITAL SIGNS: Temperature is 99.1 degrees Fahrenheit, blood pressure 132/62, pulse is 80, respiratory rate 18, saturating 99% on nasal cannula at 2 liters. INTAKE/OUTPUT: Urine output is not recorded. Ultrafiltration with hemodialysis was 2200 mL yesterday. Weight on the bed scale is stable 69.3 kg. PHYSICAL EXAMINATION: GENERAL: Patient is awake, alert, oriented times three, sitting on the bed in no apparent distress. HEAD and NECK EXAM: Extraocular muscles intact. Pupils equally round and reactive to light. Mucous membranes are moist. Neck is supple, there is no jugular venous distention (JVD). CARDIOVASCULAR: S1 and S2, regular rate. No murmur, rub, or gallop. RESPIRATORY: Chest is clear to auscultation bilaterally. Bilateral equal air entry. No rales or rhonchi. ABDOMEN: Soft, positive bowel sounds, nontender. No ascites. No organomegaly. EXTREMITIES: No clubbing or cyanosis. Pulses are 2+. CENTRAL NERVOUS SYSTEM (CCU NURSE): No focal neurological deficit. Power is 5/5 in all extremities. ARTERIOVENOUS (AV) ACCESS: Patient has a right upper arm AV fistula with positive thrill and bruit. LABORATORY REVIEW: CBC showed WBC 3.9, hemoglobin 8.8, platelets 83. BMP showed sodium 135, potassium 4.3, chloride 99, bicarbonate 30, BUN 18, creatinine 5.1, magnesium is 1.7, C-reactive protein is 9.4, which is coming down. Microbiology cultures are negative so far. IMAGING: Another CT scan of the chest was done today morning. Official report is pending. Transesophageal echocardiogram was done yesterday which showed no vegetation on any of the cardiac valves, normal LV systolic function with LV ejection fraction of around 75%. CURRENT MEDICATIONS: Patient's medications were all reviewed by me. There is no change in the medications today as compared with yesterday. She continues to be on IV vancomycin and meropenem. 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 Nephrology service following the patient for management of end-stage renal disease. PLAN: 1. End-stage renal disease on hemodialysis. Patient is getting hemodialysis every Sunday, Sunday, and Sunday. No urgent need of hemodialysis today. Next hemodialysis session will be tomorrow. 2. Anemia in end-stage renal disease. Patient's hemoglobin is suboptimal. She got a dose of Aranesp 200 mcg IV with hemodialysis yesterday. Monitor CBC for improvement. No urgent need of blood transfusion at this time. 3. Hypertension. Blood pressure is well controlled with the current regimen. 4. Recurrent pneumonia and new nodules on CT of the chest. Patient is currently on IV vancomycin and meropenem. She is fever free. A repeat CT scan of the chest is done. Official report is pending. Transesophageal echocardiogram to negative for vegetations. I am going to do a blood culture during hemodialysis tomorrow as well. Plan of care was discussed with the pulmonology service as well.
[2017-01-25] MEDS: LOSARTAN 50 MG TAB PO SCH (17:19)
[2017-01-25] MEDS: PRAVASTATIN 20 MG TAB PO SCH (21:54)
[2017-01-25] MEDS: FLUTICASONE PROP 0.05% NASAL SPRAY 16 GM (FLONASE) SCH (21:54)
[2017-01-25] MEDS: CETIRIZINE (ZyrTEC) 10 MG TAB PO SCH (21:55)
[2017-01-25] MEDS: CYANOCOBALAMIN 500 MCG TAB PO SCH (21:55)
[2017-01-26] VITALS (10 sets, daily range): BP systolic 130–158; BP diastolic 60–96; O2SAT 99–100
[2017-01-26] MEDS: MEROPENEM INJ 500 MG in D5W MINI-BAG PLUS 100 ML IV SCH (03:41)
[2017-01-26] MEDS: OMEGA-3 1050MG CAPSULE PO SCH (05:24)
[2017-01-26] MEDS: guaiFENesin ER 600 MG TAB PO SCH ×2 (05:24→20:23)
[2017-01-26] MEDS: LEVOTHYROXINE 0.125 MG TAB (125 MCG) PO SCH (05:24)
[2017-01-26] MEDS: LACTOBACILLUS ACIDOPHILUS CAP (BACID) PO SCH ×3 (05:24→20:24)
[2017-01-26] MEDS: PANTOPRAZOLE 40MG TAB (PROTONIX) PO SCH ×2 (05:24→20:23)
[2017-01-26] MEDS: SLF 3 ML SYR IV SCH ×2 (05:25→13:48)
[2017-01-26] MEDS: DICYCLOMINE 10 MG CAP PO SCH ×3 (05:30→20:24)
[2017-01-26] MEDS: FLUTICASONE HFA 110 MCG 12 GM INHALER (FLOVENT) INH SCH ×2 (07:09→20:07)
[2017-01-26] MEDS: LOPERAMIDE 2 MG CAP PO PRN (08:05)
[2017-01-26] MEDS: NYSTATIN CREAM 15 GM EXT SCH ×2 (08:06→21:45)
[2017-01-26 09:46] LABS: MEAN CORPUSCULAR HEMOGLOBIN 29.5 pg (27.0-33.0); MEAN CORPUSCULAR HGB CONC 30.8 g/dl (32.0-36.5); MEAN CORPUSCULAR VOLUME 95.5 fl (80.0-96.0); RED CELL DISTRIBUTION WIDTH 18.6 % (11.5-14.5); WHITE BLOOD COUNT 4.2 K/mm3 (4.0-10.0)
[2017-01-26 10:01] LABS: CALCIUM LEVEL 7.7 MG/DL (8.8-10.2); CREATININE FOR GFR 6.98 MG/DL (0.55-1.02); GLOMERULAR FILTRATION RATE 6.3 (>45); MAGNESIUM LEVEL 1.7 MG/DL (1.8-2.4); POTASSIUM SERUM 4.3 MEQ/L (3.5-5.1)
[2017-01-26] MEDS ORDERED: HEPARIN 1,000 UNITS/ML 10ML VIAL (FOR RADIOLOGY& DIALYSIS ONLY) IV ONE (10:30)
[2017-01-26] MEDS ORDERED: LIDOCAINE 1% SDV 5 ML VIAL SQ ONE (10:30)
--- NOTE | 2017-01-26 10:33 | IPNPDOC ---
Subjective Date Seen The patient was seen on 01/26/17. Subjective Chief Complaint/HPI The patient is a 66-year-old female admitted with a reason for visit of FEVER. Events since last encounter Pt c/o increased R chest wall pain with inspiration pain remains on the L and worse with inspiration. No other concerns this morning. General: Reports: Fatigue Constitutional: Denies: Chills, Fever (no temp in over 24 h.) ENT: Denies: Head Aches Pulmonary: Reports: Cough, Dyspnea Cardiovascular: Reports: Chest Pain, Denies: Palpitations Gastrointestinal: Denies: Diarrhea, Nausea, Vomiting Neurological: Reports: Weakness, Denies: Numbness Psych: Reports: Mood Normal Objective Physical Examination General Exam: Positive: Alert, No Acute Distress ENT Exam: Positive: Mucous membr. moist/pink Neck Exam: Positive: Supple, Negative: JVD Chest Exam: Positive: Clear to auscultation (diminished) Heart Exam: Positive: Normal S1, Normal S2, Rate Normal Abdomen Exam: Positive: Normal bowel sounds, Soft, Tenderness (tender in LUQ and lower ribs. no guard or rebound) Extremity Exam: Negative: Edema Psych Exam: Positive: Mental status NL, Mood NL Assessment /Plan Problems (1) Necrotizing pneumonia Status: Acute Discussed With: Patient Problem Specific Plan: Consult Specialist, Monitor Clinically Problem Text: 01/26 - CARA without vegetations, ID and Pulm following. Dr Morales is considering bronchoscopy today. Dr Stringer had noted the her temps seemed to be after dialysis and concern for the dialysis graft being compromised. 01/25 - CARA done 01/24, no results available in chart. On Meropenem/Vanco with dialysis. 01/24 - multiple abscesses in lungs concerning for embolic source. CARA scheduled for 3 pm today ID has seen patient in consultation. continue Meropenem and Vanco 01/23 - Pt has been seen by pulm and ID, concern for Endocarditis, Pt remains on Meropenem, but Vanco and Flagyl D/c'd per Dr Stringer. Plan for CARA today. TTE neg for vegetations. Tmax 101.5, ESR 70 up from 60, CRP 12.2 up from 7.6 01/22 She was due to see Pulm as an outpt today, she has not seen Dr Stringer. Pt was admitted and this dx was established in early December, she was d/c home on PO abx for treatment and outpt f/u with Pulm, she was then readmitted a couple days after d/c, she has been home about 10 days now before fever recurred. 01/22 CT CAP c SHANIKA 44 x 51 mm necrotizing abscess with multiple new pulmonary nodules, concerning for metastases (2) Fever Status: Acute Problem Text: see above B/C negative GI panel negative (3) Pulmonary nodules Status: Acute Response to Treatment: Worse Problem Specific Plan: Consult Specialist, Monitor Clinically, Repeat Labs Problem Text: 01/23 - see above. 01/22 - Repeat CT done 01/21, shows more nodules in the chest, will consult Pulm and ID. (4) ATIF (obstructive sleep apnea) Status: Chronic Response to Treatment: Stable Problem Specific Plan: Monitor Clinically Problem Text: Untreated, does not wear CPAP. (5) Anemia of chronic disease Status: Chronic Response to Treatment: Stable Problem Specific Plan: Monitor Clinically Problem Text: 01/24 - anemia related to end stage renal disease. Hgb has dropped to 8.9 today. Monitor trend. Defer to Nephrology Baseline Hgb mid 9 to low 10. (6) End stage renal disease on dialysis Status: Chronic Discussed With: Patient Problem Specific Plan: Consult Specialist, Monitor Clinically Problem Text: Dialysis per Nephrology (7) Goodpasture syndrome Status: Chronic Problem Text: 12/2016 - ANCA profile/GBM Ab/MED Plan/VTE VTE Prophylaxis Ordered?: No (was on heparin this was d/c, enc TEDS, Seq.) VTE Exclusion Pharmacological: Thrombocytopenia VS, I&O, 24H, Fishbone Vital Signs/I&O Vital Signs Date Time Temp Pulse Resp B/P Pulse Ox O2 Delivery O2 Flow Rate FiO2 01/26/17 07:30 99.6 78 20 158/70 100 Nasal Cannula 2.0 I&O- Last 24 Hours up to 6 AM 01/26/17 05:59 Intake Total 780 ml Output Total 0 ml Balance 780 ml Laboratory Data 24H LABS Laboratory Tests 2 01/26/17 09:12: Anion Gap 8, C-Reactive Protein, Quantitative 7.54H, Blood Urea Nitrogen 25H, Creatinine 6.98H, Sodium Level 134L, Potassium Level 4.3, Chloride Level 99, Carbon Dioxide Level 27, Calcium Level 7.7L, Erythrocyte Sedimentation Rate 81H , Glomerular Filtration Rate 6.3L, Magnesium Level 1.7L, Vancomycin Level Trough 8.6L CBC/BMP Laboratory Tests 01/26/17 09:12 Calcium Level 7.7 L, Red Blood Count 2.99 L, Mean Corpuscular Volume 95.5, Mean Corpuscular Hemoglobin 29.5, Mean Corpuscular Hemoglobin Concent 30.8 L, Red Cell Distribution Width 18.6 H Microbiology Microbiology 01/22/17 Blood Culture - Preliminary, Resulted No Growth after 72 hours. All specime... 01/22/17 Blood Culture - Preliminary, Resulted No Growth after 72 hours. All specime... 01/21/17 Blood Culture - Preliminary, Resulted No Growth after 72 hours. All specime... 01/21/17 Blood Culture - Preliminary, Resulted No Growth after 72 hours. All specime... 01/21/17 Gastrointestinal Tract Panel (PCR) - Final, Complete 01/21/17 Respiratory Virus Panel (PCR) ([facility]) - Final, Complete VIRGIL LOVE PA-C Jan 26, 2017 10:32
[2017-01-26] MEDS: (RENVELA) SEVELAMER **CARBONate** 800 MG TAB PO SCH ×2 (12:00→20:24)
[2017-01-26] MEDS: TIAGABINE 4 MG PO SCH (14:00)
[2017-01-26] MEDS ORDERED: LIDOCAINE 1% SDV INJ 30 ML VIAL As Ordered ONE ×2 (14:26→17:00)
[2017-01-26] MEDS ORDERED: EPINEPHrine 1MG/10ML SYRINGE 1.5IN As Ordered ONE ×2 (14:27→17:00)
[2017-01-26] MEDS ORDERED: THROMBIN SOLN 5,000 UNITS VIAL As Ordered ONE (14:27)
[2017-01-26] MEDS ORDERED: LIDOCAINE VISCOUS 2% SOLN 15ML UDC As Ordered ONE (14:27)
[2017-01-26] MEDS ORDERED: LIDOCAINE 1% MDV 20ML VIAL As Ordered ONE (15:06)
[2017-01-26] MEDS ORDERED: LIDOCAINE 1% MDV 20ML VIAL SC ONE (15:30)
--- NOTE | 2017-01-26 15:40 | IPN ---
DATE: 01/26/2017 Rocío seems to be doing about the same. She continues complaining of pleuritic chest pain on the right side and the left side now. She states her nausea and vomiting have resolved since admission. Her diarrhea also has improved. She has no cough. Denies any hemoptysis. She actually has not had any recorded bowel movements in 3 days. She was seen during dialysis. PHYSICAL EXAMINATION: Temperature is 99.6, pulse 78, respirations 20, blood pressure 158/70, oxygen saturation 100% on 2 liters nasal cannula. Heart normal S1, S2, with a systolic ejection murmur left upper sternal border and right upper sternal border. Lungs clear anteriorly, no wheezes, rales or rhonchi, diminished at the bases. Abdomen is soft, nontender. Extremities trace edema of the ankles. Arteriovenous (AV) fistula in the right arm with stent in place, nontender. LABORATORY DATA: White count is 4.2, hemoglobin 8.8, hematocrit 28.5, platelets 104. ESR 81. Sodium 134, potassium 4.3, chloride 99, bicarbonate 27, BUN 25, creatinine 6.9, glucose 89, calcium 7.7, magnesium 1.7 and CRP 7.54. Blood cultures four sets on 01/21/2017 and 01/22/2017, total negative. Gastrointestinal (GI) panel negative. Respiratory syncytial virus (RSV) panel negative. IMPRESSION: 1. Pulmonary nodules with a previous biopsy suggestive of necrotizing pneumonia. The patient has been on broad-spectrum antibiotics for the past 5 weeks with persistent fevers. Although there has been some improvement in the CT findings there are also new lesions. There is a concern whether the patient might have vasculitis and Andrey's granulomatosis. Transesophageal echocardiogram (CARA) was done on 01/25/2017 to rule out septic emboli that was negative. She is currently on vancomycin and meropenem with some improvement, although she has developed new pleuritic chest pain on the right side. She has been seen by Dr. Morales who is planning to do a bronchoscopy with biopsy of the left lung upper and lower lesions. 2. End-stage renal disease from Goodpasture syndrome. The patient is chronically on prednisone 5 mg daily, although most recently she has been on 10 mg, but the patient had been on that dose of steroids for the past 2 years and this has not been restarted during this admission. Dr. Morales will be restarting her steroids once the biopsy is done. 3. Obstructive sleep apnea, uses oxygen at night, mostly at 2 liters. PLAN: Continue IV meropenem and vancomycin for the time being. Biopsy bronchoscopy will be done this afternoon to rule out vasculitis. Complement studies have been sent as well as proteinase 3 and anti-myeloperoxidase study antibodies. Cryptococcus antigen, Histoplasma antigen, and Aspergillus galactomannan were ordered as well to rule out fungal infection. Case has been discussed with Dr. Morales and Dr. Solano at length.
[2017-01-26] MEDS: CHECK TO SEE IF PATIENT IS RECEIVING DIALYSIS TODAY AND REFER TO THE VANCOMYCIN ORDER XX SCH (16:00)
--- NOTE | 2017-01-26 16:00 | REP ---
Portable chest, single AP view: Comparison is 01/21/2017. There is a left subclavian central venous catheter with the tip at the junction of the superior vena cava and right atrium in satisfactory location, unchanged from the prior study. There is no pneumothorax or hemothorax. Bilateral lung masses are again noted, unchanged. These masses are seen to better advantage on the CT of 01/25/2017. Signed by Karan Mclain MD 01/26/2017 03:52 P
[2017-01-26] MEDS ORDERED: MIDAZOLAM INJ 2 MG/2 ML VIAL (J2250) As Ordered ONE (18:00)
[2017-01-26] MEDS ORDERED: PROPOFOL 200 MG/20 ML VIAL As Ordered ONE (18:00)
[2017-01-26] MEDS ORDERED: fentaNYL 100 MCG/2 ML INJECTION (J3010) As Ordered ONE (18:00)
[2017-01-26] MEDS ORDERED: dexameTHASONE 4 MG/ML 1ML VIAL (J1100) As Ordered ONE (18:00)
[2017-01-26] MEDS ORDERED: ONDANSETRON 4MG/2ML VIAL (J2405) As Ordered ONE (18:00)
[2017-01-26] MEDS ORDERED: LIDOCAINE 2% INJ 100 MG/5 ML SDV (FOR ANES.) As Ordered ONE (18:00)
[2017-01-26] MEDS ORDERED: NEOSTIGMINE 1MG/ML 5 ML SYRINGE (J2710) As Ordered ONE (18:04)
[2017-01-26] MEDS ORDERED: GLYCOPYRROLATE INJ 0.2 MG/ML 2 ML VIAL As Ordered ONE (18:04)
[2017-01-26] MEDS ORDERED: ACETAMINOPHEN/CODEINE 12.5 ML UDC PO PRN (19:00)
[2017-01-26] MEDS ORDERED: ONDANSETRON 4MG/2ML VIAL (J2405) IV PRN (19:00)
[2017-01-26] MEDS ORDERED: fentaNYL 100 MCG/2 ML INJECTION (J3010) IV PRN (19:00)
[2017-01-26] MEDS ORDERED: guaiFENesin/CODEINE SYRUP 5 ML UDC PO PRN (19:30)
--- NOTE | 2017-01-26 19:53 | RO ---
DATE OF PROCEDURE: 01/26/2017 PREOPERATIVE DIAGNOSIS: Abnormal chest CT, fever. POSTOPERATIVE DIAGNOSIS: Abnormal chest CT, fever. FINDINGS: Normal airways without mucus or hemorrhage. PROCEDURE: Bronchoscopy with electromagnetic navigation. SURGEON: Dr. Ben Morales MEDICINE TEACHER: None. ANESTHESIA: General. SPECIMENS OBTAINED: 1. Left upper lobe transbronchial forceps biopsies. 2. Left upper lobe micro brush for aerobic and anaerobic culture and Gram stain. 3. Left upper lobe micro brush for fungal smear and culture. 4. Bronchoalveolar lavage, sent for cell differential, PCP, AFB and smear, fungal culture and smear, aerobic, anaerobic culture and Gram stain and cytology. 5. Left lower lobe transbronchial forceps biopsies. 6. Left lower lobe bronchoalveolar lavage, sent for aerobic and anaerobic culture and Gram stain, cell count, cytology, AFB and fungal smear, along with PCP ESTIMATED BLOOD LOSS: 20-30 mL. No drains. DESCRIPTION OF PROCEDURE: After informed consent was reviewed with the patient in the preoperative area, she was brought back to operating room (OR) number eight. Time-out was performed with two patient identifiers, identifying correct site, correct procedure. She was intubated with an 8.5 endotracheal tube. Cetacaine spray was used to anesthetize the airway along with for lubrication for the 1T180 bronchoscope. The 1T180 bronchoscope was introduced into the endotracheal tube after a time-out was performed, identifying two patient identifiers, correct site, correct procedure. The airways inspected, the trachea was midline. Suad was sharp. Right and left mainstem bronchus was normal. RB1-10 was normal without endobronchial lesions. No evidence of recent hemorrhage. There was minimal pitting in the right upper lobe anterior segment. LB1-10 was viewed without any evidence of endobronchial lesions. There was no evidence of recent hemorrhage. I then placed the LG guide in, automatic registration was performed. After this, target #1 was navigated to in the left upper lobe. This was easily obtained. I then proceeded to obtain nine transbronchial forceps biopsies along with three micro brushes and bronchoalveolar lavage. After adequate sampling, the guide was removed from the area. However, there was a significant amount of heme. This was suctioned and clotted by itself. Of note, the bronchoalveolar lavage return was very hemorrhagic. After suctioning of airways clean, I then navigated to the left lower lobe lesion, which was target #2. This was easily also easily obtained. Site was confirmed with fluoroscopy. Biopsies were then taken of the area. A total of six transbronchial biopsies and then this was followed by bronchoalveolar lavage. Again, the lavage was mostly hemorrhagic. After adequate samples were taken, the LG guide was removed. Hemostasis was assured with saline rinsing. There was no further hemorrhage. The bronchoscope was then removed. The patient was extubated in recovery. Due to the significant amount of hemorrhage and the suspicion of underlying vasculitis postprocedure, I have opted to start high-dose Solu-Medrol at 100 mg IV daily every 8 hours until pathology and micro is obtained. Will continue antibiotic therapy along with high-dose steroid.
--- NOTE | 2017-01-26 19:56 | IPN ---
DATE: 01/26/2017 SUBJECTIVE: Patient was seen and examined at the bedside today in the morning getting hemodialysis procedure. She was tolerating the hemodialysis procedure well. Patient reports that she is nothing by mouth today for another bronchoscopy today to be done by pulmonology. REVIEW OF SYSTEMS: Patient denies any fevers, chills, rigors, headache, nausea, vomiting, chest pain, shortness of breath, pain in abdomen, constipation, or diarrhea. Rest of review of systems is negative. OBJECTIVE: Vital signs: Temperature is 99.6 degrees Fahrenheit, blood pressure is 158/70, pulse is 78, respiratory rate of 20, saturating 100% on nasal cannula at 2 liters per minute. Intake and output: Urine output is not recorded. Weight in the bed scale is 70.4 kg. PHYSICAL EXAMINATION: GENERAL: Patient is awake, alert, oriented times three. Lying in the bed getting hemodialysis procedure done. No apparent distress at this time. HEAD AND NECK: Extraocular muscles intact. Pupils equally round and reactive to light. Mucous membranes are moist. Neck is supple. There is no jugular venous distention (JVD). CARDIOVASCULAR: S1, S2, regular rate. No murmur, rub, or gallop. RESPIRATORY: Chest is clear to auscultation bilaterally. Bilateral equal air entry. No rales or rhonchi. ABDOMEN: Soft. Positive bowel sounds. Nontender. No ascites. No organomegaly. EXTREMITIES: No clubbing or cyanosis. Pulses are 2+. CENTRAL NERVOUS SYSTEM: No focal neurological deficit. Power is 5/5 in all extremities. Arteriovenous (AV) access: Patient has a right upper arm AV fistula which is being used for dialysis. No issues with the access at this time. LABORATORY REVIEW: CBC showed a WBC 4.2, hemoglobin 8.8, platelets of 104. BMP showed sodium 134, potassium 4.3, chloride 99, bicarbonate 27, BUN 25, creatinine 6.9, magnesium is 1.7. C-reactive protein is 7.5. Immunology: ANCA is weakly positive at 1:20. CURRENT MEDICATIONS: Patient's medications were all reviewed by me. There is no change in the medications today as compared with yesterday. 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 Nephrology service following the patient for management of end-stage renal disease. PLAN: 1. End-stage renal disease. Patient is being dialyzed according to regular schedule. We shall try to do an ultrafiltration of around 2.5 liters as tolerated by her blood pressure. 2. Anemia and end-stage renal disease. Patient's hemoglobin is still suboptimal. There is no urgent need of a blood transfusion at this time. Continue current dose of Aranesp 200 mcg intravenous (IV) with hemodialysis. 3. Recurrent pneumonia. New nodules in the CT scan of the chest and positive ANCA. Patient is seizure free at this time. She continues to be on antibiotics. Cultures are negative so far. Patient is pending another biopsy. Positive ANCA and possibility of ANCA-mediated vasculitis was discussed with the pulmonary critical care team and the with the infectious disease as well. Further workup as per pulmonary service.
[2017-01-26] MEDS: LOSARTAN 50 MG TAB PO SCH (20:23)
[2017-01-26] MEDS: CYANOCOBALAMIN 500 MCG TAB PO SCH (20:23)
[2017-01-26] MEDS: CETIRIZINE (ZyrTEC) 10 MG TAB PO SCH (20:23)
[2017-01-26] MEDS: PRAVASTATIN 20 MG TAB PO SCH (20:24)
[2017-01-26] MEDS: methylPREDNISolone INJ 125 MG/2 ML VIAL (J2930) IV SCH (20:24)
[2017-01-26] MEDS: FLUTICASONE PROP 0.05% NASAL SPRAY 16 GM (FLONASE) SCH (20:25)
[2017-01-26] MEDS: SODIUM CHLORIDE 0.9% INJ 10 ML SYR IV SCH (20:25)
[2017-01-26 21:00] LABS: COMPLEMENT C3 72.2 MG/DL (90-180); COMPLEMENT C4 26.2 MG/DL (10-40)
[2017-01-26 21:10] LABS: COLOR RED (COLORLESS)
[2017-01-26 21:10] LABS: COLOR RED (COLORLESS)
--- NOTE | 2017-01-26 21:12 | IPN ---
DATE: 01/25/2017 Rocío continues to have fever. She had a temperature of 101.8 last night. This also happened after she had come back from dialysis. The patient had a transesophageal echocardiogram which was negative. She had a fever last night, but none today. No headache, nausea is slightly better. No vomiting. Pleuritic chest pain has improved as well. I have discussed the case at length with Dr. Ben Morales and have reviewed all her previous admissions. This history dates back to 12/20/2016 when the patient was having abdominal pain. CT of the abdomen and pelvis was done as an outpatient, and she was noted to have a new right lower lobe nodules of 1.1 cm and 0.4 cm that were felt to be possibly metastatic. Two days later, the patient was admitted with fever. On 12/22/2016, she had a CT chest which showed multiple pulmonary nodules, the largest being in the left upper lobe. She was started on piperacillin/tazobactam and vancomycin. Her temperature during that admission was 102.3, CRP was 29. She remained on piperacillin/tazobactam until 12/26/2016 ; at that point she was switched to Rocephin along with Flagyl until 12/21/2016. On 12/31/2016, she was switched to oral cefdinir until 01/03/2017. The patient was discharged that day but was readmitted on 01/04/2017 with persistent fever, and she received IV meropenem and vancomycin during that admission until . The patient was then sent back to [facility] where she lives from 01/09/2017 to 01/21/2017 on oral cefdinir. She took 300 mg twice a day and metronidazole 500 mg four times a day. She noted that she was having more nausea and vomiting with those antibiotics. She did not receive IV vancomycin according to dialysis unit in over 30 days. She also has a history of pseudoaneurysm. On 01/02/2017, the patient had a stent graft placed in her right arm after Dr. Solano had noticed the pseudoaneurysm. She has a previous history of bilateral deep venous thromboses (DVTs) that are nonocclusive in 2014. This admission, the patient was restarted on IV vancomycin and meropenem. Her temperature last night was 101.9. Today, she is afebrile. PHYSICAL EXAMINATION: On his physical examination, cushingoid lady in no acute distress. Temperature is 98.7, pulse 77, respirations 20, blood pressure 137/62, oxygen saturation 98% on 2 liters nasal cannula. Heart: Normal S1, S2. No murmurs appreciated. Lungs: Diminished breath sounds at the bases but clear. Abdomen: Soft, nontender. Extremities: No clubbing, cyanosis, or edema. Has had mild edema of both hands. Right arteriovenous (AV) fistula with good thrill. LABORATORY DATA: White count is 3.9, hemoglobin 8.8, hematocrit 28.8, platelets 83. ESR is 83, which has increased over the past 4 days. Sodium 135, potassium 4.3, chloride 99, bicarbonate 30, BUN 18, creatinine 5.1, glucose 82, calcium 7.8, magnesium 1.7, and CRP is 9.4. Of note, this is down from 29 a month ago. Cultures: On 01/21/2017, she had two sets that were negative. On 01/22/2017, she had two sets that were negative. GI panel was negative. Respiratory panel was negative. The bronchoscopy specimen showed gram-positive cocci but, of note, that bronchoscopy was done after 3 days of vancomycin and Zosyn and the fungal smear is still not read from 12/25/2016. I will call microbiology tomorrow to discuss the results of the culture. QuantiFERON TB Gold was negative. HIV was negative. MED and ANCA levels are still pending. Glomerular basal membrane antibody is pending as well. IMPRESSION: Multiple pulmonary nodules associated with fever, pleuritic chest pain. Repeat CT chest was done today. The upper lobe masses are not significantly changed per radiology, and there are some new right upper lobe and new left lower lobe nodular densities noted. It is still unclear to me in spite of broad-spectrum antibiotics for the past month, combination of vancomycin, Zosyn, cefdinir, metronidazole, and again now meropenem and vancomycin, that the patient has persistent fever. Should rule out emboli from the AV fistula; may be noninfectious vascukitis, Other possibilities would be fungal etiologies, Cryptococcus, histoplasmosis, Aspergillus, although you would expect to see that on her biopsy. Less likely actinomycosis nocardiosis. PLAN: At this point, will continue vancomycin and meropenem. Will discuss the case tomorrow with Dr. Solano, but pseudoaneurysm whether that had occurred prior to this presentation or only was noted on the 01/03/2017 when it was repaired. Further antibiotic management will depend on results of labs. We may pursue a repeat CT biopsy of new lung nodule. Case has been discussed with Dr. Morales at length today. [facility]
[2017-01-26] MEDS: METOPROLOL TART 50 MG TAB PO SCH (21:45)
--- NOTE | 2017-01-26 21:52 | REP ---
FLUOROSCOPIC GUIDANCE FOR ENDOSCOPIC NAVIGATIONAL BRONCHOSCOPY: 01/26/2017. Clinical history: Lung lesions with bilateral nodules or further evaluation. Technique: C-arm fluoroscopy provided to Dr. Morales of the Pulmonology Division with two images showing the bronchoscope overlying the left upper lobe and upper lung zone mass, superimposed over the biopsy needle. Second image shows the bronchoscope aimed towards the lower lung zone laterally on that left side. Fluoroscopy time 4 minutes 48 seconds. Signed by Fritz Trinidad MD 01/27/2017 08:08 P
--- NOTE | 2017-01-26 22:49 | REP ---
PORTABLE CHEST: 01/26/2017 at 07:17 PM. Comparison to a study earlier this afternoon. Clinical history: Status post ENB. Indwelling right subclavian port catheter tip in the right atrium. The left upper lobe mass is noted. There is now a patchy density in the left mid lung zone which may reflect a small hematoma in the parenchyma. I do not see a pneumothorax. Some minor linear fibrotic change in the left CP angle. No gross effusion. Right lung, unchanged with some patchy peripheral pleural thickening or pleural based mass, unchanged. Impression: 1. No evidence of a left-sided pneumothorax or pleural effusion. There are findings suggesting lung contusion left mid lung zone while the mass in the left upper lung zone is not much changed. Signed by Fritz Trinidad MD 01/27/2017 08:12 P
[2017-01-27] VITALS: BP 132/67
--- NOTE | 2017-01-27 00:12 | RO ---
DATE OF PROCEDURE: 01/26/2017 PREOPERATIVE DIAGNOSIS: Need for vascular access, renal failure. POSTOPERATIVE DIAGNOSIS: Need for vascular access, renal failure. PROCEDURE: Insertion of left subclavian central line. SURGEON: Dr. Sameer Nelson [employer]: ANESTHESIA: DESCRIPTION OF PROCEDURE: The left infraclavicular fossa was prepped and draped in the usual sterile fashion. It was then draped and the infraclavicular fossa was infiltrated with 1% Xylocaine. Vein was found on the third pass and a wire was passed without difficulty. Blood did back, indicating that she was indeed very dry. Nonetheless, the wire was passed well, the tract was dilated and the triple lumen was placed by Seldinger technique. Ports were aspirated and flushed without difficulty, and the catheter was secured to the chest wall with two #3-0 silk sutures. The patient tolerated the procedure well and a chest x-ray is pending.
[2017-01-27] MEDS: methylPREDNISolone INJ 125 MG/2 ML VIAL (J2930) IV SCH ×4 (01:17→18:14)
[2017-01-27] MEDS: MEROPENEM INJ 500 MG in D5W MINI-BAG PLUS 100 ML IV SCH (01:18)
[2017-01-27 04:00] VITALS: BP 143/73
[2017-01-27] MEDS: guaiFENesin ER 600 MG TAB PO SCH ×2 (05:51→18:14)
[2017-01-27] MEDS: SODIUM CHLORIDE 0.9% INJ 10 ML SYR IV SCH ×2 (05:51→14:56)
[2017-01-27] MEDS: LEVOTHYROXINE 0.125 MG TAB (125 MCG) PO SCH (05:51)
[2017-01-27 06:31] LABS: MEAN CORPUSCULAR HEMOGLOBIN 29.6 pg (27.0-33.0); MEAN CORPUSCULAR HGB CONC 30.4 g/dl (32.0-36.5); MEAN CORPUSCULAR VOLUME 97.5 fl (80.0-96.0); RED CELL DISTRIBUTION WIDTH 18.6 % (11.5-14.5); WHITE BLOOD COUNT 2.7 K/mm3 (4.0-10.0)
[2017-01-27 06:43] LABS: CALCIUM LEVEL 7.8 MG/DL (8.8-10.2); CREATININE FOR GFR 4.56 MG/DL (0.55-1.02); GLOMERULAR FILTRATION RATE 10.3 (>45); MAGNESIUM LEVEL 1.9 MG/DL (1.8-2.4); POTASSIUM SERUM 5.1 MEQ/L (3.5-5.1)
[2017-01-27] MEDS: FLUTICASONE HFA 110 MCG 12 GM INHALER (FLOVENT) INH SCH ×2 (07:06→18:28)
[2017-01-27 07:25] VITALS: BP 143/67
[2017-01-27] MEDS: OMEGA-3 1050MG CAPSULE PO SCH (08:46)
[2017-01-27] MEDS: LACTOBACILLUS ACIDOPHILUS CAP (BACID) PO SCH ×3 (08:46→21:04)
[2017-01-27] MEDS: METOPROLOL TART 50 MG TAB PO SCH ×2 (08:47→21:05)
[2017-01-27] MEDS: DICYCLOMINE 10 MG CAP PO SCH ×3 (08:47→21:04)
[2017-01-27] MEDS: PANTOPRAZOLE 40MG TAB (PROTONIX) PO SCH ×2 (08:47→21:04)
[2017-01-27] MEDS: NYSTATIN CREAM 15 GM EXT SCH ×2 (08:48→21:04)
--- NOTE | 2017-01-27 11:15 | IPNPDOC ---
Subjective Date Seen The patient was seen on 01/27/17. Subjective Chief Complaint/HPI The patient is a 66-year-old female admitted with a reason for visit of FEVER. Events since last encounter Patient reports that her breathing is significantly better today. She denies any fevers, chills, sweats. She continues to have occasional cough, nonproductive. Constitutional: Denies: Chills, Fever, Malaise Pulmonary: Reports: Cough, Denies: Dyspnea, Pleuritic Chest Pain Cardiovascular: Denies: Chest Pain, Orthopnea, Palpitations Gastrointestinal: Denies: Abdominal Pain, Constipation, Diarrhea, Nausea, Vomiting Other systems 10 point review systems otherwise negative Objective Physical Examination General Exam: Positive: Alert, No Acute Distress ENT Exam: Positive: Mucous membr. 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 Patient is status post bronchoscopy with Dr. Morales. She was started on high-dose IV steroids for concern for vasculitis. Dr Stringer had noted the her temps seemed to be after dialysis and concern for the dialysis graft being compromised. Symptoms have improved since being started on steroids 01/26/17. She continues to have be on vancomycin meropenem with dialysis. - Continue vancomycin and meropenem per ID - Continue IV Solu-Medrol 100 mg every 6 hours per pulmonology - Follow-up bronchoscopy path results (2) Fever Status: Acute Problem Text: see above B/C negative GI panel negative (3) Pulmonary nodules Status: Acute Response to Treatment: Worse Problem Specific Plan: Consult Specialist, Monitor Clinically, Repeat Labs Problem Text: Patient seems to have new nodules on CT exam. ANCA positive. Status post bronchoscopy with biopsy. -Follow up pathology (4) ATIF (obstructive sleep apnea) Status: Chronic Response to Treatment: Stable Problem Specific Plan: Monitor Clinically Problem Text: Untreated, does not wear CPAP. (5) Anemia of chronic disease Status: Chronic Response to Treatment: Stable Problem Specific Plan: Monitor Clinically Problem Text: History of chronic anemia due to end-stage renal disease. Hemoglobin is stable. (6) End stage renal disease on dialysis Status: Chronic Discussed With: Patient Problem Specific Plan: Consult Specialist, Monitor Clinically Problem Text: Dialysis per Nephrology (7) Goodpasture syndrome Status: Chronic Problem Text: 12/2016 - ANCA profile/GBM Ab/MED. Pathology pending. Plan/VTE VTE Prophylaxis Ordered?: No (was on heparin this was d/c, enc TEDS, Seq.) VTE Exclusion Pharmacological: Thrombocytopenia Disposition Pending workup for pulmonary nodules and cyclic fevers; possibly Goodpasture syndrome VS, I&O, 24H, Fishbone Vital Signs/I&O Vital Signs Date Time Temp Pulse Resp B/P Pulse Ox O2 Delivery O2 Flow Rate FiO2 01/27/17 08:47 67 143/73 01/27/17 08:00 Nasal Cannula 2.0 01/27/17 07:25 97.6 20 99 I&O- Last 24 Hours up to 6 AM 01/27/17 05:59 Intake Total 825 ml Output Total 2500 ml Balance -1675 ml Laboratory Data 24H LABS Laboratory Tests 2 01/26/17 19:00: Bronchial Fluid WBC , Bronchial Specimen Source LEFT LOWER LOBE, Bronchoalveolar Lavage Appearance CLOTTEDH, Bronchoalveolar Lavage Color REDH 01/26/17 19:01: Bronchial Fluid WBC , Bronchial Specimen Source LEFT UPPER LOBE, Bronchoalveolar Lavage Appearance CLOTTEDH, Bronchoalveolar Lavage Color REDH 01/27/17 05:57: Anion Gap 8, C-Reactive Protein, Quantitative 8.06H, Blood Urea Nitrogen 16, Creatinine 4.56H, Sodium Level 135L, Potassium Level 5.1, Chloride Level 98, Carbon Dioxide Level 29, Calcium Level 7.8L, Erythrocyte Sedimentation Rate 70H , Glomerular Filtration Rate 10.3L, Magnesium Level 1.9 CBC/BMP Laboratory Tests 01/27/17 05:57 Calcium Level 7.8 L, Red Blood Count 3.28 L, Mean Corpuscular Volume 97.5 H, Mean Corpuscular Hemoglobin 29.6, Mean Corpuscular Hemoglobin Concent 30.4 L, Red Cell Distribution Width 18.6 H Microbiology Microbiology 01/22/17 Blood Culture - Preliminary, Resulted No Growth after 72 hours. All specime... 01/22/17 Blood Culture - Preliminary, Resulted No Growth after 72 hours. All specime... 01/21/17 Blood Culture - Final, Complete NO GROWTH AFTER 5 DAYS 01/21/17 Blood Culture - Final, Complete NO GROWTH AFTER 5 DAYS 01/21/17 Gastrointestinal Tract Panel (PCR) - Final, Complete 01/26/17 Acid Fast Stain - Final, Resulted 01/26/17 Mycobacterial Culture, Resulted Pending 01/26/17 Fungal Smear, Resulted Pending 01/26/17 Fungal Culture, Resulted Pending 01/26/17 Gram Stain - Final, Resulted 01/26/17 Bronchoalveolar Lavage Culture, Resulted Pending 01/26/17 Acid Fast Stain, Received Pending 01/26/17 Mycobacterial Culture, Received Pending 01/26/17 Fungal Smear, Received Pending 01/26/17 Fungal Culture, Received Pending 01/26/17 Bronchial [place] Culture, Received Pending 01/26/17 Gram Stain, Received Pending 01/26/17 Bronchoalveolar Lavage Culture, Received Pending 01/21/17 Respiratory Virus Panel (PCR) (MOISÉS) - Final, Complete 01/26/17 Acid Fast Stain, Received Pending 01/26/17 Mycobacterial Culture, Received Pending 01/26/17 Fungal Smear, Received Pending 01/26/17 Fungal Culture, Received Pending 01/26/17 Anaerobic Culture, Received Pending 01/26/17 Gram Stain - Final, Complete SANA ALBA MD Jan 27, 2017 11:15 SANA ALBA MD Jan 27, 2017 11:15
[2017-01-27] MEDS: TIAGABINE 4 MG PO SCH (12:38)
[2017-01-27] MEDS: (RENVELA) SEVELAMER **CARBONate** 800 MG TAB PO SCH ×2 (12:38→18:14)
[2017-01-27] MEDS: CHECK TO SEE IF PATIENT IS RECEIVING DIALYSIS TODAY AND REFER TO THE VANCOMYCIN ORDER XX SCH (16:00)
[2017-01-27] MEDS: LOSARTAN 50 MG TAB PO SCH (18:14)
--- NOTE | 2017-01-27 21:01 | IPN ---
DATE: 01/27/2017 Ms. Jim is seen this morning on her bedside. 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 She has been dialysis dependent. She is admitted with recurrent pneumonia and right upper lobe opacity. Two biopsies during her prior admission were negative for malignancy and she underwent another bronchoscopic biopsy yesterday. She continues to have cough but denies any hemoptysis or pleuritic type of chest pain. She has no fever or chills at present, however did have high-grade fever on admission. She has no nausea or vomiting. PHYSICAL EXAMINATION: Temperature 97.6 degrees Fahrenheit, heart rate 75 per minute and respiratory rate 20 per minute. Blood pressure 143/67 mmHg and oxygen saturation is 99% on 2 liters oxygen. Head is atraumatic. Ears, nose and throat are unremarkable. Pupils are equal and reactive to light and sclerae is anicteric. Neck is supple and without jugular venous distention (JVD) or thyroid enlargement. Heart sounds are regular. Lungs have bilateral rhonchi and mild expiratory wheezing. Abdomen soft and nontender and without a palpable organomegaly. Bowel sounds are normal. Extremities have no cyanosis or clubbing. Right forearm arteriovenous (AV) fistula is patent. Neurologically she is awake, alert and oriented times three. Today's labs show WBC count 2.7, hemoglobin 9.7 and hematocrit 31.9. Platelets 126. Sodium 135, potassium 5.1. BUN 16 and creatinine 4.56. Calcium level 7.8 and magnesium 1.9. C-reactive protein is 8.06. PROBLEMS: 1. End-stage renal disease. The patient is regularly dialyzed on Sunday, Sunday and Sunday schedule. She did have her last dialysis yesterday. We will schedule next hemodialysis for Sunday. 2. Cough and shortness of breath. Most likely related to pulmonary infection and possible mass. At present she remains on antibiotics and bronchodilators. We will wait for biopsy results. She will probably need another CT-guided biopsy at a later time if a diagnosis could not be reached. 3. Hypertension. At present blood pressure is reasonably well-controlled. Current antihypertensive medications will be continued. 4. Anemia. Her anemia is stable and she will continue with Aranesp 200 mcg once a week. 5. History of vasculitis. At present the patient is being treated with antibiotics. She has slightly positive ANCA serology and currently she is not on any treatment for vasculitis. She will continue with steroids but no immunosuppressive therapy at this point.
[2017-01-27] MEDS: CETIRIZINE (ZyrTEC) 10 MG TAB PO SCH (21:04)
[2017-01-27] MEDS: FLUTICASONE PROP 0.05% NASAL SPRAY 16 GM (FLONASE) SCH (21:04)
[2017-01-27] MEDS: PRAVASTATIN 20 MG TAB PO SCH (21:05)
[2017-01-27] MEDS: CYANOCOBALAMIN 500 MCG TAB PO SCH (21:05)
[2017-01-27 22:00] VITALS: BP 139/69
[2017-01-28] MEDS: MEROPENEM INJ 500 MG in D5W MINI-BAG PLUS 100 ML IV SCH (01:30)
[2017-01-28] MEDS: methylPREDNISolone INJ 125 MG/2 ML VIAL (J2930) IV SCH ×4 (01:30→17:40)
[2017-01-28] MEDS: SODIUM CHLORIDE 0.9% INJ 10 ML SYR IV SCH ×4 (01:30→22:03)
[2017-01-28] MEDS: guaiFENesin ER 600 MG TAB PO SCH ×2 (05:27→17:42)
[2017-01-28] MEDS: LEVOTHYROXINE 0.125 MG TAB (125 MCG) PO SCH (05:27)
[2017-01-28 05:44] LABS: MEAN CORPUSCULAR HEMOGLOBIN 29.8 pg (27.0-33.0); MEAN CORPUSCULAR HGB CONC 30.2 g/dl (32.0-36.5); MEAN CORPUSCULAR VOLUME 98.5 fl (80.0-96.0); RED CELL DISTRIBUTION WIDTH 18.9 % (11.5-14.5); WHITE BLOOD COUNT 5.9 K/mm3 (4.0-10.0)
[2017-01-28 06:00] VITALS: BP 150/68
[2017-01-28 06:01] LABS: CALCIUM LEVEL 7.4 MG/DL (8.8-10.2); CREATININE FOR GFR 6.51 MG/DL (0.55-1.02); GLOMERULAR FILTRATION RATE 6.8 (>45)
[2017-01-28] MEDS: FLUTICASONE HFA 110 MCG 12 GM INHALER (FLOVENT) INH SCH ×2 (08:11→20:21)
[2017-01-28] MEDS: OMEGA-3 1050MG CAPSULE PO SCH (09:09)
[2017-01-28] MEDS: DICYCLOMINE 10 MG CAP PO SCH ×3 (09:10→21:47)
[2017-01-28] MEDS: METOPROLOL TART 50 MG TAB PO SCH ×2 (09:10→22:07)
[2017-01-28] MEDS: LACTOBACILLUS ACIDOPHILUS CAP (BACID) PO SCH ×3 (09:10→21:47)
[2017-01-28] MEDS: NYSTATIN CREAM 15 GM EXT SCH ×2 (09:11→22:18)
[2017-01-28] MEDS: PANTOPRAZOLE 40MG TAB (PROTONIX) PO SCH ×2 (09:11→21:48)
[2017-01-28] MEDS: TIAGABINE 4 MG PO SCH (13:31)
[2017-01-28] MEDS: (RENVELA) SEVELAMER **CARBONate** 800 MG TAB PO SCH ×2 (13:31→17:41)
[2017-01-28 14:00] VITALS: BP 155/72
[2017-01-28] MEDS: CHECK TO SEE IF PATIENT IS RECEIVING DIALYSIS TODAY AND REFER TO THE VANCOMYCIN ORDER XX SCH (16:00)
[2017-01-28] MEDS: LOSARTAN 50 MG TAB PO SCH (17:42)
--- NOTE | 2017-01-28 18:20 | IPNPDOC ---
Subjective Date Seen The patient was seen on 01/28/17. Subjective Chief Complaint/HPI The patient is a 66-year-old female admitted with a reason for visit of FEVER. Events since last encounter Patient states that her breathing continues to improve. She denies any fevers, chills, sweats, or shortness of breath. She feels like she needs to cough sputum , but is unable to clear mucus. Constitutional: Denies: Chills, Fever, Malaise Skin: Denies: Rash Pulmonary: Reports: Cough, Denies: Dyspnea Cardiovascular: Denies: Chest Pain, Orthopnea, Palpitations Gastrointestinal: Denies: Abdominal Pain, Constipation, Diarrhea, Nausea, Vomiting Genitourinary: Denies: Dysuria Other systems 10 point review systems otherwise negative Objective Physical Examination General Exam: Positive: Alert, No Acute Distress ENT Exam: Positive: Mucous membr. 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 Patient is status post bronchoscopy with Dr. Morales. She was started on high-dose IV steroids for concern for vasculitis. Dr Stringer had noted the her temps seemed to be after dialysis and concern for the dialysis graft being compromised. Symptoms have improved since being started on steroids 01/26/17. She continues to have be on vancomycin meropenem with dialysis. However, pulmonology plans to discontinue vancomycin today. Pulmonology doubts Goodpasture's. -Antibiotics per pulmonary and ID - Continue IV Solu-Medrol 100 mg every 6 hours per pulmonology - Follow-up bronchoscopy path results - Acapella for mucus clearance (2) Fever Status: Acute Problem Text: see above B/C negative GI panel negative (3) Pulmonary nodules Status: Acute Response to Treatment: Worse Problem Specific Plan: Consult Specialist, Monitor Clinically, Repeat Labs Problem Text: Patient seems to have new nodules on CT exam. ANCA positive. Status post bronchoscopy with biopsy. -Follow up pathology (4) ATIF (obstructive sleep apnea) Status: Chronic Response to Treatment: Stable Problem Specific Plan: Monitor Clinically Problem Text: Untreated, does not wear CPAP. (5) Anemia of chronic disease Status: Chronic Response to Treatment: Stable Problem Specific Plan: Monitor Clinically Problem Text: History of chronic anemia due to end-stage renal disease. Hemoglobin is stable. (6) End stage renal disease on dialysis Status: Chronic Discussed With: Patient Problem Specific Plan: Consult Specialist, Monitor Clinically Problem Text: Dialysis per Nephrology (7) Goodpasture syndrome Status: Chronic Problem Text: ANCA weakly positive and anti-glomerular basement membrane antibody negative, making Goodpasture's very unlikely. MED is negative, C4 level is normal, C3 level is decreased. - Follow up remaining autoimmune panel Plan/VTE VTE Prophylaxis Ordered?: No (was on heparin this was d/c, enc TEDS, Seq.) VTE Exclusion Pharmacological: Thrombocytopenia Disposition Pending stable respiratory status VS, I&O, 24H, Fishbone Vital Signs/I&O Vital Signs Date Time Temp Pulse Resp B/P Pulse Ox O2 Delivery O2 Flow Rate FiO2 01/28/17 17:42 148/74 01/28/17 14:00 98.3 93 18 96 Nasal Cannula 2.0 I&O- Last 24 Hours up to 6 AM 01/28/17 06:00 Intake Total 1920 ml Output Total 0 ml Balance 1920 ml Laboratory Data 24H LABS Laboratory Tests 2 01/28/17 05:24: Anion Gap 10, C-Reactive Protein, Quantitative 4.54H, Blood Urea Nitrogen 34#H, Creatinine 6.51H, Sodium Level 137, Potassium Level 5.0, Chloride Level 101, Carbon Dioxide Level 26, Calcium Level 7.4L, Erythrocyte Sedimentation Rate 61H , Glomerular Filtration Rate 6.8L CBC/BMP Laboratory Tests 01/28/17 05:24 Calcium Level 7.4 L, Red Blood Count 3.09 L, Mean Corpuscular Volume 98.5 H, Mean Corpuscular Hemoglobin 29.8, Mean Corpuscular Hemoglobin Concent 30.2 L, Red Cell Distribution Width 18.9 H Microbiology Microbiology 01/22/17 Blood Culture - Final, Complete NO GROWTH AFTER 5 DAYS 01/22/17 Blood Culture - Final, Complete NO GROWTH AFTER 5 DAYS 01/21/17 Blood Culture - Final, Complete NO GROWTH AFTER 5 DAYS 01/21/17 Blood Culture - Final, Complete NO GROWTH AFTER 5 DAYS 01/21/17 Gastrointestinal Tract Panel (PCR) - Final, Complete 01/26/17 Acid Fast Stain - Final, Resulted 01/26/17 Mycobacterial Culture, Resulted Pending 01/26/17 Fungal Smear, Resulted Pending 01/26/17 Fungal Culture, Resulted Pending 01/26/17 Gram Stain - Final, Complete 01/26/17 Bronchoalveolar Lavage Culture - Final, Complete 01/26/17 Acid Fast Stain - Final, Resulted 01/26/17 Mycobacterial Culture, Resulted Pending 01/26/17 Fungal Smear, Resulted Pending 01/26/17 Fungal Culture, Resulted Pending 01/26/17 Bronchial [place] Culture - Final, Complete 01/26/17 Gram Stain - Final, Complete 01/26/17 Bronchoalveolar Lavage Culture - Final, Complete 01/21/17 Respiratory Virus Panel (PCR) (MOISÉS) - Final, Complete 01/26/17 Acid Fast Stain, Received Pending 01/26/17 Mycobacterial Culture, Received Pending 01/26/17 Fungal Smear, Received Pending 01/26/17 Fungal Culture, Received Pending 01/26/17 Anaerobic Culture - Final, Complete 01/26/17 Gram Stain - Final, Complete SANA ALBA MD Jan 28, 2017 18:20
[2017-01-28] MEDS: CYANOCOBALAMIN 500 MCG TAB PO SCH (21:47)
[2017-01-28] MEDS: CETIRIZINE (ZyrTEC) 10 MG TAB PO SCH (21:48)
[2017-01-28] MEDS: PRAVASTATIN 20 MG TAB PO SCH (21:48)
[2017-01-28] MEDS: FLUTICASONE PROP 0.05% NASAL SPRAY 16 GM (FLONASE) SCH (21:49)
[2017-01-28 22:00] VITALS: BP 160/65
[2017-01-28] MEDS: ACETAMINOPHEN TAB 650MG DOSE (2X325MG) PO PRN (22:02)
[2017-01-29] MEDS: methylPREDNISolone INJ 125 MG/2 ML VIAL (J2930) IV SCH ×4 (02:01→18:12)
[2017-01-29] MEDS: SODIUM CHLORIDE 0.9% INJ 10 ML SYR IV PRN ×2 (02:02→06:41)
[2017-01-29 06:00] VITALS: BP 162/71
[2017-01-29] MEDS: DICYCLOMINE 10 MG CAP PO SCH ×3 (06:23→23:06)
[2017-01-29] MEDS: LACTOBACILLUS ACIDOPHILUS CAP (BACID) PO SCH ×3 (06:23→23:06)
[2017-01-29] MEDS: LEVOTHYROXINE 0.125 MG TAB (125 MCG) PO SCH (06:23)
[2017-01-29] MEDS: PANTOPRAZOLE 40MG TAB (PROTONIX) PO SCH ×2 (06:23→23:06)
[2017-01-29] MEDS: guaiFENesin ER 600 MG TAB PO SCH ×2 (06:25→18:13)
[2017-01-29] MEDS: OMEGA-3 1050MG CAPSULE PO SCH (06:26)
[2017-01-29] MEDS: SODIUM CHLORIDE 0.9% INJ 10 ML SYR IV SCH ×3 (06:26→22:00)
[2017-01-29 06:54] LABS: BASO % 0.1 % (0.0-1.0); EOS % 0.2 % (0.0-3.0); LARGE UNSTAINED CELL % 0.6 % (0.0-4.0); LYMPH # 0.6 K/mm3 (1.5-4.5); LYMPH % 10.5 % (24.0-44.0); MEAN CORPUSCULAR HEMOGLOBIN 29.6 pg (27.0-33.0); MEAN CORPUSCULAR HGB CONC 30.3 g/dl (32.0-36.5); MEAN CORPUSCULAR VOLUME 97.5 fl (80.0-96.0); MONO # 0.1 K/mm3 (0.0-0.8); MONO % 2.2 % (0.0-5.0); NEUTROPHILS # 4.9 K/mm3 (1.8-7.7); NEUTROPHILS % 86.5 % (36.0-66.0); PLATELET COUNT, AUTOMATED 208 k/mm3 (150-450); RED CELL DISTRIBUTION WIDTH 19.2 % (11.5-14.5); WHITE BLOOD COUNT 5.7 K/mm3 (4.0-10.0)
[2017-01-29 07:05] LABS: CALCIUM LEVEL 7.5 MG/DL (8.8-10.2); CREATININE FOR GFR 8.03 MG/DL (0.55-1.02); GLOMERULAR FILTRATION RATE 5.3 (>45); POTASSIUM SERUM 4.9 MEQ/L (3.5-5.1); VANCOMYCIN RANDOM 14.6 UG/ML
[2017-01-29] MEDS: LOPERAMIDE 2 MG CAP PO PRN (08:00)
[2017-01-29] MEDS: NYSTATIN CREAM 15 GM EXT SCH ×2 (08:00→23:07)
[2017-01-29 08:18] LABS: ERYTHROCYTE SEDIMENTATION RATE 52 mm/hr (0-30)
[2017-01-29] MEDS: FLUTICASONE HFA 110 MCG 12 GM INHALER (FLOVENT) INH SCH ×2 (09:00→21:16)
[2017-01-29] MEDS ORDERED: HEPARIN 1,000 UNITS/ML 10ML VIAL (FOR RADIOLOGY& DIALYSIS ONLY) IV ONE (12:00)
[2017-01-29] MEDS ORDERED: LIDOCAINE 1% SDV 5 ML VIAL SQ ONE (12:00)
[2017-01-29] MEDS: (RENVELA) SEVELAMER **CARBONate** 800 MG TAB PO SCH ×2 (12:18→18:13)
[2017-01-29] MEDS: TIAGABINE 4 MG PO SCH (12:19)
--- NOTE | 2017-01-29 12:23 | IPNPDOC ---
Subjective Date Seen The patient was seen on 01/29/17. Subjective Chief Complaint/HPI The patient is a 66-year-old female admitted with a reason for visit of FEVER. Events since last encounter feeling fatigued. c/o pleuritic CP with deep inspiration. + cough. Constitutional: Denies: Chills, Fever, Night Sweats ENT: Denies: Dysphagia, Ear Pain, Head Aches Skin: Denies: Breakdown, Lesions, Rash Pulmonary: Reports: Cough, Dyspnea Cardiovascular: Denies: Chest Pain, Lt Headedness, Orthopnea, Palpitations, Paroxysmal Noc. Dyspnea Gastrointestinal: Denies: Abdominal Pain, Constipation, Diarrhea, Nausea, Vomiting Objective Physical Examination General Exam: Positive: Alert, No Acute Distress ENT Exam: Positive: Mucous membr. 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 Patient is status post bronchoscopy with Dr. Morales. She was started on high-dose IV steroids for concern for vasculitis. Dr Stringer had noted the her temps seemed to be after dialysis and concern for the dialysis graft being compromised. Symptoms have improved since being started on steroids 01/26/17. She continues to have be on vancomycin meropenem with dialysis. However, pulmonology plans to discontinue vancomycin today. Pulmonology doubts Goodpasture's. -Antibiotics per pulmonary and ID - Continue IV Solu-Medrol 100 mg every 6 hours per pulmonology - Follow-up bronchoscopy path results - Acapella for mucus clearance (2) Fever Status: Acute Problem Text: see above B/C negative GI panel negative (3) Pulmonary nodules Status: Acute Response to Treatment: Worse Problem Specific Plan: Consult Specialist, Monitor Clinically, Repeat Labs Problem Text: Patient seems to have new nodules on CT exam. ANCA positive. Status post bronchoscopy with biopsy. -Follow up pathology (4) ATIF (obstructive sleep apnea) Status: Chronic Response to Treatment: Stable Problem Specific Plan: Monitor Clinically Problem Text: Untreated, does not wear CPAP. (5) Anemia of chronic disease Status: Chronic Response to Treatment: Stable Problem Specific Plan: Monitor Clinically Problem Text: History of chronic anemia due to end-stage renal disease. Hemoglobin is stable. (6) End stage renal disease on dialysis Status: Chronic Discussed With: Patient Problem Specific Plan: Consult Specialist, Monitor Clinically Problem Text: Dialysis per Nephrology (7) Goodpasture syndrome Status: Chronic Problem Text: ANCA weakly positive and anti-glomerular basement membrane antibody negative, making Goodpasture's very unlikely. MED is negative, C4 level is normal, C3 level is decreased. - Follow up remaining autoimmune panel Plan/VTE VTE Prophylaxis Ordered?: No (was on heparin this was d/c, enc TEDS, Seq.) VTE Exclusion Pharmacological: Thrombocytopenia Plan Attending note: I saw evaluated patient, and agree with the plan of care as discussed and documented above by Liz Branham. Sana Delatorre MD VS, I&O, 24H, Fishbone Vital Signs/I&O Vital Signs Date Time Temp Pulse Resp B/P Pulse Ox O2 Delivery O2 Flow Rate FiO2 01/29/17 06:00 98.9 66 18 162/71 97 Nasal Cannula 2.0 I&O- Last 24 Hours up to 6 AM 01/29/17 06:00 Intake Total 1020 ml Output Total 0 ml Balance 1020 ml Laboratory Data 24H LABS Laboratory Tests 2 01/29/17 06:22: Anion Gap 12, White Blood Count 5.7, Red Blood Count 3.09L, Hemoglobin 9.1L, Hematocrit 30.1L, Mean Corpuscular Volume 97.5H, Mean Corpuscular Hemoglobin 29.6, Mean Corpuscular Hemoglobin Concent 30.3L, Red Cell Distribution Width 19.2H, Platelet Count 208, Neutrophils (%) (Auto) 86.5H, Lymphocytes (%) (Auto) 10.5L, Monocytes (%) (Auto) 2.2, Eosinophils (%) (Auto) 0.2, Basophils (%) (Auto ) 0.1, Neutrophils # (Auto) 4.9, Lymphocytes # (Auto) 0.6L, Monocytes # (Auto) 0.1, Eosinophils # (Auto) 0.0, Basophils # (Auto) 0.0, C-Reactive Protein, Quantitative 2.36H, Blood Urea Nitrogen 53#H, Creatinine 8.03H, Sodium Level 138 , Potassium Level 4.9, Chloride Level 102, Carbon Dioxide Level 24, Calcium Level 7.5L, Erythrocyte Sedimentation Rate 52H, Glomerular Filtration Rate 5.3L , Large Unclassified Cells # 0.0, Large Unclassified Cells % 0.6, Random Vancomycin Level 14.6 CBC/BMP Laboratory Tests 01/29/17 06:22 Calcium Level 7.5 L, Red Blood Count 3.09 L, Mean Corpuscular Volume 97.5 H, Mean Corpuscular Hemoglobin 29.6, Mean Corpuscular Hemoglobin Concent 30.3 L, Red Cell Distribution Width 19.2 H, Neutrophils (%) (Auto) 86.5 H, Lymphocytes ( %) (Auto) 10.5 L, Monocytes (%) (Auto) 2.2, Eosinophils (%) (Auto) 0.2, Basophils (%) (Auto) 0.1, Neutrophils # (Auto) 4.9, Lymphocytes # (Auto) 0.6 L, Monocytes # (Auto) 0.1, Eosinophils # (Auto) 0.0, Basophils # (Auto) 0.0 Microbiology Microbiology 01/22/17 Blood Culture - Final, Complete NO GROWTH AFTER 5 DAYS 01/22/17 Blood Culture - Final, Complete NO GROWTH AFTER 5 DAYS 01/21/17 Blood Culture - Final, Complete NO GROWTH AFTER 5 DAYS 01/21/17 Blood Culture - Final, Complete NO GROWTH AFTER 5 DAYS 01/21/17 Gastrointestinal Tract Panel (PCR) - Final, Complete 01/26/17 Acid Fast Stain - Final, Resulted 01/26/17 Mycobacterial Culture, Resulted Pending 01/26/17 Fungal Smear, Resulted Pending 01/26/17 Fungal Culture, Resulted Pending 01/26/17 Gram Stain - Final, Complete 01/26/17 Bronchoalveolar Lavage Culture - Final, Complete 01/26/17 Acid Fast Stain - Final, Resulted 01/26/17 Mycobacterial Culture, Resulted Pending 01/26/17 Fungal Smear, Resulted Pending 01/26/17 Fungal Culture, Resulted Pending 01/26/17 Bronchial [place] Culture - Final, Complete 01/26/17 Gram Stain - Final, Complete 01/26/17 Bronchoalveolar Lavage Culture - Final, Complete 01/21/17 Respiratory Virus Panel (PCR) ([facility]) - Final, Complete 01/26/17 Acid Fast Stain, Received Pending 01/26/17 Mycobacterial Culture, Received Pending 01/26/17 Fungal Smear, Received Pending 01/26/17 Fungal Culture, Received Pending 01/26/17 Anaerobic Culture - Final, Complete 01/26/17 Gram Stain - Final, Complete Essence Branham Jan 29, 2017 12:23 SANA DELATORRE MD Jan 30, 2017 19:59
[2017-01-29] MEDS: LOSARTAN 50 MG TAB PO SCH (18:12)
--- NOTE | 2017-01-29 21:01 | IPN ---
DATE: 01/29/2017 SUBJECTIVE: Patient was seen and examined at the bedside today in the morning during work rounds and again during hemodialysis procedure. Patient does not have any active complaints apart from mild cough. She is tolerating the hemodialysis procedure well. REVIEW OF SYSTEMS: Patient denies any fevers, chills, rigors, headache, nausea, vomiting, chest pain. She does report some cough. She denies any pain in abdomen, constipation, or diarrhea. Rest of review of systems is negative. OBJECTIVE: VITAL SIGNS: Temperature is 98.3 degrees Fahrenheit, blood pressure is 160/65, pulse is 82, respiratory rate of 16, saturating 97% on nasal cannula. Intake and output: Urine output is not recorded. Weight in the bed scale is 76 kg today. PHYSICAL EXAMINATION: GENERAL: Patient is awake, alert, oriented times three, laying in bed getting hemodialysis. No apparent distress. HEAD and NECK EXAM: Extraocular muscles intact. Pupils equally round and reactive to light. Neck is supple. There is no jugular venous distention (JVD). CARDIOVASCULAR: S1, S2, regular rate. No murmur, rub, or gallop. RESPIRATORY: Patient has harsh vesicular breathing and mild expiratory rhonchi bilaterally at the bases. Otherwise bilateral equal air entry. ABDOMEN: Soft. Positive bowel sounds. Nontender. No ascites. No organomegaly. EXTREMITIES: No clubbing or cyanosis. Pulses are 2+. CENTRAL NERVOUS SYSTEM (NAIL MAKING MACHINE SETTER): No focal neurological deficit. Power is 5/5 in all extremities. ARTERIOVENOUS (AV) ACCESS: Patient has a right upper arm AV fistula which is being used for dialysis. No issues with AV fistula at this time. LABORATORY REVIEW: CBC showed a WBC 5.7, hemoglobin 9.1, platelets are 208. BMP showed sodium 138, potassium 4.9, chloride 102, bicarbonate 24, BUN 53, creatinine 8, calcium 7.5, C-reactive protein is 2.3. Microbiology: All the cultures are negative so far. CURRENT MEDICATIONS: Patient's medications were all reviewed by me. There is no change in the medications today as compared with yesterday. ASSESSMENT: 66-year-old female with past medical history of end-stage renal disease secondary to Goodpasture disease, admitted for recurrent pneumonia and fevers. PLAN: 1. End-stage renal disease on hemodialysis. Patient's regular days are Sunday, Sunday, Sunday. She is being dialyzed according to her regular schedule. We shall try to do an ultrafiltration of 2.5 liters as tolerated by her blood pressure. 2. Hypertension. Blood pressure is acceptable at this time. Continue current dose of antihypertensive regimen. 3. Anemia. Hemoglobin is stable but suboptimal. Continue current dose of Aranesp 200 mcg intravenous (IV) once a week with hemodialysis. 4. Recurrent pneumonia. Patient is currently on meropenem as per infectious disease recommendations. C-reactive protein is coming down. 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
[2017-01-29 22:00] VITALS: BP 128/70
--- NOTE | 2017-01-29 22:01 | IPN ---
DATE: 01/29/2017 TIME: 3:00 p.m. The patient has been seen and examined at bedside. No acute events overnight. The patient is feeling better. Stated that she no longer has chest pain for the past few days and also she denies any fever or chills either. Denies any abdominal pain, nausea, vomiting, diarrhea or constipation. Denies any other current new complaints. PHYSICAL EXAMINATION: VITAL SIGNS: Temperature 98.9, pulse 66, respirations 18, blood pressure 162/71, oxygen saturation at 97% on 2 liters of nasal cannula. GENERAL: The patient is a pleasant, elderly female who was alert and oriented times three. Does not appear to be in distress. Laying comfortably in bed with head elevated at 30 degrees receiving hemodialysis. HEENT: Normocephalic, atraumatic. Extraocular movements intact. Mucous moist. NECK: Supple. No neck lymphadenopathy. CARDIOVASCULAR: Regular rate and rhythm, S1, S2. No murmurs, rubs or gallops. LUNGS: Clear to auscultation bilaterally. No wheezes, rales or rhonchi. ABDOMEN: Positive bowel sounds, soft, nontender. No peritoneal signs. No ecchymosis. EXTREMITIES: No edema, clubbing or cyanosis. SKIN: Warm and dry. NEUROLOGICAL: Cranial nerves II through XII intact. No focal neurological deficits. LABS: WBC 5.7, hemoglobin 9.1, hematocrit 30.1 with platelet count of 208 and MCV of 97.5. Sodium 130, potassium 4.9, chloride 102, bicarbonate 24, BUN 53, creatinine 8.03. GFR 5.3. Glucose 178. CRP was 2.36. Day prior was 4.54. Patient's MED was negative. PR3 is pending. P ANCA is negative. MPO was pending, x-ANCA is negative, ANCA is positive. GBM antibody was only 7. Not tolerated. Heparin-induced antibody was not tolerated at 0.197. Complement C3 is low, 73. Complement C4 was normal, 26.2. Total complement is currently pending. The patient had a bronchoalveolar lavage on January 26, 2017. Both shows clotted appearance and red in color at left upper and lower lobe. The patient's anaerobic culture has been no growth for the past three days. Gram stain shows no organism. The patient's acid fast stain was negative. Cultures pending. Blood culture shows on growth after 5 days. ASSESSMENT AND PLAN: 1. Multiple pulmonary nodules associated with fever, pleuritic chest pain. The patient did receive bronchoscopic biopsy with electromagnetic navigation for the left upper lobe and also left lower lobe. Cultures have been negative so far. The patient was on combination of vancomycin, Zosyn, cefdinir, metronidazole and on this admission, also was on meropenem and vancomycin, which all antibiotics have been stopped so far and the patient was started on Solu-Medrol 100 mg IV every 6 hours since January 26, 2017, roughly three days ago and patient's symptoms seem to be improving. No longer admits to chest pain. The patient no longer has fever. At this point will continue to followup with cultures. The patient's erythrocyte sedimentation rate and CRP have been improving as well. Will continue to follow. The patient has been discussed with attending doctor, Dr. Stringer. My preceptor for this patient encounter was Dr. Karen Stringer. The preceptor was physically present in the building during the encounter and was fully available. As needed, all aspects of the patient interview, examination, medical decision making process, and medical care plan development were reviewed and approved by the preceptor. The preceptor is aware and concurs with the plan as stated in the body of this note and will attest to such by his/her cosignature.
[2017-01-29] MEDS: CYANOCOBALAMIN 500 MCG TAB PO SCH (23:05)
[2017-01-29] MEDS: CETIRIZINE (ZyrTEC) 10 MG TAB PO SCH (23:06)
[2017-01-29] MEDS: METOPROLOL TART 50 MG TAB PO SCH (23:06)
[2017-01-29] MEDS: PRAVASTATIN 20 MG TAB PO SCH (23:06)
[2017-01-29] MEDS: FLUTICASONE PROP 0.05% NASAL SPRAY 16 GM (FLONASE) SCH (23:07)
[2017-01-30 00:07] LABS: COMPLEMENT TOTAL (CH50) 53 U/mL (42-60); CRYPTOCOCCUS ANTIGEN SER Negative (Negative); HISTOPLASMA ANTIGEN BLOOD 0.13 ng/mL (0.00-0.49); HISTOPLASMOSIS ANTIBODY Negative (Neg:<1:1); MYELOPEROXIDASE ANTIBODY <9.0 U/mL (0.0-9.0); PR3 ANTIPROTEINASE ANTIBODIES 24.1 U/mL (0.0-3.5)
[2017-01-30] MEDS: methylPREDNISolone INJ 125 MG/2 ML VIAL (J2930) IV SCH ×4 (02:08→22:49)
[2017-01-30] MEDS: SODIUM CHLORIDE 0.9% INJ 10 ML SYR IV PRN (02:13)
[2017-01-30 06:00] VITALS: BP 113/70
[2017-01-30] MEDS ORDERED: MEROPENEM INJ 500 MG in D5W MINI-BAG PLUS 100 ML IV SCH (06:00)
[2017-01-30] MEDS: LEVOTHYROXINE 0.125 MG TAB (125 MCG) PO SCH (06:15)
[2017-01-30] MEDS: guaiFENesin ER 600 MG TAB PO SCH ×2 (06:16→18:20)
[2017-01-30] MEDS: SODIUM CHLORIDE 0.9% INJ 10 ML SYR IV SCH ×3 (06:18→22:45)
[2017-01-30 06:50] LABS: MEAN CORPUSCULAR HEMOGLOBIN 29.1 pg (27.0-33.0); MEAN CORPUSCULAR VOLUME 96.2 fl (80.0-96.0); WHITE BLOOD COUNT 4.7 K/mm3 (4.0-10.0)
[2017-01-30 06:51] LABS: BASO % 0.1 % (0.0-1.0); EOS % 0.5 % (0.0-3.0); LARGE UNSTAINED CELL % 0.7 % (0.0-4.0); LYMPH # 0.6 K/mm3 (1.5-4.5); MEAN CORPUSCULAR HGB CONC 30.3 g/dl (32.0-36.5); MONO # 0.1 K/mm3 (0.0-0.8); MONO % 2.9 % (0.0-5.0); NEUTROPHILS # 3.9 K/mm3 (1.8-7.7); NEUTROPHILS % 82.7 % (36.0-66.0); PLATELET COUNT, AUTOMATED 216 k/mm3 (150-450); RED CELL DISTRIBUTION WIDTH 19.4 % (11.5-14.5)
[2017-01-30 07:08] LABS: CALCIUM LEVEL 7.3 MG/DL (8.8-10.2); CREATININE FOR GFR 4.79 MG/DL (0.55-1.02); GLOMERULAR FILTRATION RATE 9.7 (>45); POTASSIUM SERUM 4.3 MEQ/L (3.5-5.1)
[2017-01-30 07:43] LABS: ERYTHROCYTE SEDIMENTATION RATE 42 mm/hr (0-30)
[2017-01-30] MEDS: FLUTICASONE HFA 110 MCG 12 GM INHALER (FLOVENT) INH SCH ×2 (08:21→21:19)
[2017-01-30] MEDS: LACTOBACILLUS ACIDOPHILUS CAP (BACID) PO SCH ×3 (09:15→22:45)
[2017-01-30] MEDS: DICYCLOMINE 10 MG CAP PO SCH ×3 (09:15→22:46)
[2017-01-30] MEDS: LOPERAMIDE 2 MG CAP PO PRN (09:16)
[2017-01-30] MEDS: PANTOPRAZOLE 40MG TAB (PROTONIX) PO SCH ×2 (09:16→22:46)
[2017-01-30] MEDS: OMEGA-3 1050MG CAPSULE PO SCH (09:16)
[2017-01-30] MEDS: NYSTATIN CREAM 15 GM EXT SCH ×2 (09:16→22:49)
[2017-01-30] MEDS: PERCOCET 5MG/325MG TAB PO PRN ×3 (09:16→18:21)
[2017-01-30] MEDS: METOPROLOL TART 50 MG TAB PO SCH ×2 (09:20→22:48)
[2017-01-30] MEDS: NEPHRO-VIT TAB (NEPHROCAPS) PO SCH (13:28)
[2017-01-30] MEDS: (RENVELA) SEVELAMER **CARBONate** 800 MG TAB PO SCH ×2 (13:29→18:20)
[2017-01-30] MEDS: TIAGABINE 4 MG PO SCH (13:29)
--- NOTE | 2017-01-30 13:51 | IPN ---
DATE: 01/30/2017 SUBJECTIVE: The patient was seen and examined at the bedside today in the morning. She is complaining of mild cough. She was dialyzed yesterday. She tolerated the hemodialysis procedure well yesterday. She is currently hemodynamically stable. REVIEW OF SYSTEMS: The patient denies any fevers, chills, rigors, headaches, nausea, vomiting, chest pain or shortness of breath. She date of examination report some dry cough. She denies any pain abdomen, constipation, or diarrhea. The patient reports that she has been losing a lot of hair recently. Rest of review of systems is negative. OBJECTIVE: VITAL SIGNS: Temperature is 97.6 degrees Fahrenheit, blood pressure is 113/70, pulse 60, respiratory rate of 14, saturating 100% on room air. INTAKE AND OUTPUT: Urine output recorded as 540 mL yesterday. No urine output recorded today. The patient got hemodialysis done yesterday; 2.5 liters of ultrafiltration was done. Weight in the bed scale is 75.9 kg. PHYSICAL EXAMINATION: GENERAL: The patient is awake, alert, oriented times three, sitting in the bed, no apparent distress. HEAD/NECK: Extraocular muscles intact. Pupils equal, round, and reactive to light. Mucous membranes are moist. Neck is supple. There is no jugular venous distention (JVD). CARDIOVASCULAR: S1, S2. Regular rate. No murmur, rub, or gallop. RESPIRATORY: The patient has harsh vesicular breathing and expiratory rhonchi bilaterally in the bases and middle zones. Otherwise, bilaterally clear air entry. ABDOMEN: Soft. Positive bowel sounds. Nontender. No ascites. No organomegaly. EXTREMITIES: No clubbing or cyanosis. Pulses are 2+. CENTRAL NERVOUS SYSTEM (DIGITAL PUBLISHING SPECIALIST): No focal neurological deficit. Power is 5/5 in all extremities. ARTERIOVENOUS (AV) ACCESS: The patient has a right upper arm AV fistula with positive thrill and bruit. LABORATORY DATA: CBC showed WBC 4.7, hemoglobin 9.1, platelets are 216. BMP shows sodium 137, potassium 4.3, chloride 99, bicarbonate 27, BUN 28, creatinine 4.7. Calcium is 7.3. MICROBIOLOGY: Cultures are negative so far. CURRENT MEDICATIONS: The patient's medications were all reviewed by me. She continues to be in intravenous (IV) meropenem. She is currently on high-dose Solu-Medrol 100 mg IV every eight hours. There is no change in the medications today as compared with yesterday. ASSESSMENT: A 66-year-old female with past medical history of end-stage renal disease secondary to Goodpasture disease, admitted this time because of recurrent pneumonia and fevers. PLAN: 1. End-stage renal disease on hemodialysis. The patient's regular dialysis days are Sunday, Sunday, Sunday. She was dialyzed according to her schedule yesterday. Next hemodialysis session will be tomorrow. 2. Hypertension. Blood pressure is acceptable at this time. Continue current antihypertensive regimen. 3. Anemia in end-stage renal disease. The patient's hemoglobin is still low with the current dose of Aranesp. I am going to check the iron levels. If the patient's iron is low, she will be given a dose of IV iron infusion. 4. Recurrent pneumonia. The patient is currently on meropenem and high-dose Solu-Medrol. C-reactive protein is trending down. Rest of the management is as per pulmonary service. 5. Loss of hair. The patient is complaining of hair loss. I am going to start the patient on multivitamin in the setting of possible loss of vitamins during hemodialysis.
[2017-01-30 14:00] VITALS: BP 142/68
[2017-01-30] MEDS: LOSARTAN 50 MG TAB PO SCH (18:20)
--- NOTE | 2017-01-30 20:03 | IPNPDOC ---
Subjective Date Seen The patient was seen on 01/30/17. Subjective Chief Complaint/HPI The patient is a 66-year-old female admitted with a reason for visit of FEVER. Events since last encounter Patient continues to feel much better. She denies any fevers, or difficulty breathing today. Constitutional: Denies: Chills, Fever, Malaise Cardiovascular: Denies: Chest Pain, Orthopnea, Palpitations Gastrointestinal: Denies: Abdominal Pain, Constipation, Diarrhea, Nausea, Vomiting Genitourinary: Denies: Dysuria Other systems 10 point review systems otherwise negative Objective Physical Examination General Exam: Positive: Alert, No Acute Distress ENT Exam: Positive: Mucous membr. 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 Patient is status post bronchoscopy with Dr. Morales. She was started on high-dose IV steroids for concern for vasculitis. Symptoms have improved since being started on steroids 01/26/17. Antibiotics have been discontinued as all cultures have been negative, and biopsy shows only inflammation. Patient is now being tapered off of high-dose steroids by pulmonology. -IV Solu-Medrol has been reduced from 100 every 6 hours to 100 every 8 hours - Acapella for mucus clearance - Discharge planning (2) Fever Status: Acute Problem Text: see above B/C negative GI panel negative (3) Pulmonary nodules Status: Acute Response to Treatment: Worse Problem Specific Plan: Consult Specialist, Monitor Clinically, Repeat Labs Problem Text: Patient seems to have new nodules on CT exam. ANCA positive. Status post bronchoscopy with biopsy. -Pathology shows only nonspecific inflammation; cytology is negative for malignancy (4) ATIF (obstructive sleep apnea) Status: Chronic Response to Treatment: Stable Problem Specific Plan: Monitor Clinically Problem Text: Untreated, does not wear CPAP. (5) Anemia of chronic disease Status: Chronic Response to Treatment: Stable Problem Specific Plan: Monitor Clinically Problem Text: History of chronic anemia due to end-stage renal disease. Hemoglobin is stable. (6) End stage renal disease on dialysis Status: Chronic Discussed With: Patient Problem Specific Plan: Consult Specialist, Monitor Clinically Problem Text: Dialysis per Nephrology (7) Goodpasture syndrome Status: Chronic Problem Text: ANCA weakly positive and anti-glomerular basement membrane antibody negative, making Goodpasture's very unlikely. MED is negative, C4 level is normal, C3 level is decreased. - Follow up remaining autoimmune panel Plan/VTE VTE Prophylaxis Ordered?: No (was on heparin this was d/c, enc TEDS, Seq.) VTE Exclusion Pharmacological: Thrombocytopenia VS, I&O, 24H, Fishbone Vital Signs/I&O Vital Signs Date Time Temp Pulse Resp B/P Pulse Ox O2 Delivery O2 Flow Rate FiO2 01/30/17 18:51 18 01/30/17 18:20 167/71 01/30/17 14:00 99.6 89 95 Room Air 01/29/17 21:20 2.0 I&O- Last 24 Hours up to 6 AM 01/30/17 06:00 Intake Total 1200 ml Output Total 3040 ml Balance -1840 ml Laboratory Data 24H LABS Laboratory Tests 2 01/30/17 06:14: Anion Gap 11, White Blood Count 4.7, Red Blood Count 3.14L, Hemoglobin 9.1L, Hematocrit 30.2L, Mean Corpuscular Volume 96.2H, Mean Corpuscular Hemoglobin 29.1, Mean Corpuscular Hemoglobin Concent 30.3L, Red Cell Distribution Width 19.4H, Platelet Count 216, Neutrophils (%) (Auto) 82.7H, Lymphocytes (%) (Auto) 13.0L, Monocytes (%) (Auto) 2.9, Eosinophils (%) (Auto) 0.5, Basophils (%) (Auto ) 0.1, Neutrophils # (Auto) 3.9, Lymphocytes # (Auto) 0.6L, Monocytes # (Auto) 0.1, Eosinophils # (Auto) 0.0, Basophils # (Auto) 0.0, C-Reactive Protein, Quantitative 1.38H, Blood Urea Nitrogen 28H, Creatinine 4.79H, Sodium Level 137 , Potassium Level 4.3, Chloride Level 99, Carbon Dioxide Level 27, Calcium Level 7.3L, Erythrocyte Sedimentation Rate 42H, Glomerular Filtration Rate 9.7L , Large Unclassified Cells # 0.0, Large Unclassified Cells % 0.7 CBC/BMP Laboratory Tests 4/11/17 06:14 Calcium Level 7.3 L, Red Blood Count 3.14 L, Mean Corpuscular Volume 96.2 H, Mean Corpuscular Hemoglobin 29.1, Mean Corpuscular Hemoglobin Concent 30.3 L, Red Cell Distribution Width 19.4 H, Neutrophils (%) (Auto) 82.7 H, Lymphocytes ( %) (Auto) 13.0 L, Monocytes (%) (Auto) 2.9, Eosinophils (%) (Auto) 0.5, Basophils (%) (Auto) 0.1, Neutrophils # (Auto) 3.9, Lymphocytes # (Auto) 0.6 L, Monocytes # (Auto) 0.1, Eosinophils # (Auto) 0.0, Basophils # (Auto) 0.0 Microbiology Microbiology 01/22/17 Blood Culture - Final, Complete NO GROWTH AFTER 5 DAYS 01/22/17 Blood Culture - Final, Complete NO GROWTH AFTER 5 DAYS 01/21/17 Blood Culture - Final, Complete NO GROWTH AFTER 5 DAYS 01/21/17 Blood Culture - Final, Complete NO GROWTH AFTER 5 DAYS 01/21/17 Gastrointestinal Tract Panel (PCR) - Final, Complete 01/26/17 Acid Fast Stain - Final, Resulted 01/26/17 Mycobacterial Culture, Resulted Pending 01/26/17 Fungal Smear, Resulted Pending 01/26/17 Fungal Culture, Resulted Pending 01/26/17 Gram Stain - Final, Complete 01/26/17 Bronchoalveolar Lavage Culture - Final, Complete 01/26/17 Acid Fast Stain - Final, Resulted 01/26/17 Mycobacterial Culture, Resulted Pending 01/26/17 Fungal Smear, Resulted Pending 01/26/17 Fungal Culture, Resulted Pending 01/26/17 Bronchial [place] Culture - Final, Complete 01/26/17 Gram Stain - Final, Complete 01/26/17 Bronchoalveolar Lavage Culture - Final, Complete 01/21/17 Respiratory Virus Panel (PCR) ([facility]) - Final, Complete 01/26/17 Acid Fast Stain, Received Pending 01/26/17 Mycobacterial Culture, Received Pending 01/26/17 Fungal Smear, Received Pending 01/26/17 Fungal Culture, Received Pending 01/26/17 Anaerobic Culture - Final, Complete 01/26/17 Gram Stain - Final, Complete SANA ALBA MD Jan 30, 2017 20:03
--- NOTE | 2017-01-30 20:56 | IPN ---
DATE: 01/30/2017 Rocío seems to be doing much better since she was started on IV Solu-Medrol. She is on 100 mg every 8 hours. She denies any chest pain. No fever or chills. Her antibiotics ran out yeserday but today, meropenem was restarted. LABORATORY DATA: White count is 4.7, hemoglobin 9.1, hematocrit 30.2, platelets 216, 82% lymphocytes, 13% monocytes, 82% neutrophils, 13% lymphocytes. Sodium 137, potassium 4.3, chloride 99, bicarbonate 27, BUN 28, creatinine 4.8, glucose 188, calcium 7.3, CRP is 1.4 down from 28.9 earlier on December 23. Microbiology: Bronchoscopy was negative for bacterial culture, AFB smear is negative, culture is pending. Anaerobic culture is negative. There were two sets of cultures from different specimens left lower lobe and left upper lobe, both negative. Labs immunology: Proteinase 3 (PR3) was 24 with the normal being up to 3.5. This is suggestive of Andrey's granulomatosis. ANCA was positive 1:40 earlier in December, 1:20 on 01/22/2017. Complement levels: C3 is 72, C4 26.2, CH50 is 53. MED negative. On physical exam, temperature is 99.6, pulse 89, respirations 18, blood pressure 142/68, oxygen saturation 95% on room air. Heart: Normal S1, S2. No murmurs. Lungs are clear. No wheezes, rales or rhonchi. Abdomen is soft, nontender. No hepatosplenomegaly. Extremities: Trace edema. 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 The patient has done much better with IV Solu-Medrol. Bronchoscopy had negative culture and therefore, will discontinue meropenem and vancomycin. The case has been discussed with Dr. Fuentes who agrees with the plan. He will discuss the case with Dr. Ben Morales, who did the bronchoscopy, and whether the patient needs to be followed up in [place] or with pulmonary. PLAN: Discontinue IV meropenem and vancomycin. Infectious disease is signing off. Hopefully tomorrow she could be switched to prednisone, and be discharged home soon. The patient was encouraged to eat a lot of yogurt and take probiotics to decrease the risk of developing Clostridium difficile colitis. MTDD
[2017-01-30 22:00] VITALS: BP 180/85
[2017-01-30] MEDS: PRAVASTATIN 20 MG TAB PO SCH (22:45)
[2017-01-30] MEDS: CYANOCOBALAMIN 500 MCG TAB PO SCH (22:46)
[2017-01-30] MEDS: CETIRIZINE (ZyrTEC) 10 MG TAB PO SCH (22:46)
[2017-01-30] MEDS: FLUTICASONE PROP 0.05% NASAL SPRAY 16 GM (FLONASE) SCH (22:48)
[2017-01-31] MEDS: SODIUM CHLORIDE 0.9% INJ 10 ML SYR IV SCH ×3 (05:53→20:31)
[2017-01-31] MEDS: guaiFENesin ER 600 MG TAB PO SCH ×2 (05:57→20:30)
[2017-01-31] MEDS: LEVOTHYROXINE 0.125 MG TAB (125 MCG) PO SCH (05:57)
[2017-01-31 06:00] VITALS: BP 175/65
[2017-01-31] MEDS: methylPREDNISolone INJ 125 MG/2 ML VIAL (J2930) IV SCH (06:06)
[2017-01-31 06:47] LABS: CALCIUM LEVEL 7.5 MG/DL (8.8-10.2); CREATININE FOR GFR 6.32 MG/DL (0.55-1.02); POTASSIUM SERUM 4.6 MEQ/L (3.5-5.1)
[2017-01-31 06:49] LABS: BASO % 0.3 % (0.0-1.0); EOS % 0.3 % (0.0-3.0); LARGE UNSTAINED CELL % 0.4 % (0.0-4.0); LYMPH # 0.5 K/mm3 (1.5-4.5); LYMPH % 12.9 % (24.0-44.0); MEAN CORPUSCULAR HEMOGLOBIN 29.2 pg (27.0-33.0); MEAN CORPUSCULAR HGB CONC 30.1 g/dl (32.0-36.5); MEAN CORPUSCULAR VOLUME 96.8 fl (80.0-96.0); MONO # 0.1 K/mm3 (0.0-0.8); MONO % 2.8 % (0.0-5.0); NEUTROPHILS # 3.4 K/mm3 (1.8-7.7); NEUTROPHILS % 83.4 % (36.0-66.0); PLATELET COUNT, AUTOMATED 197 k/mm3 (150-450); RED CELL DISTRIBUTION WIDTH 19.4 % (11.5-14.5); WHITE BLOOD COUNT 4.1 K/mm3 (4.0-10.0)
[2017-01-31] MEDS: OMEGA-3 1050MG CAPSULE PO SCH (07:01)
[2017-01-31] MEDS: LACTOBACILLUS ACIDOPHILUS CAP (BACID) PO SCH ×3 (07:01→20:44)
[2017-01-31] MEDS: PANTOPRAZOLE 40MG TAB (PROTONIX) PO SCH ×2 (07:01→20:30)
[2017-01-31] MEDS: NEPHRO-VIT TAB (NEPHROCAPS) PO SCH (07:01)
[2017-01-31] MEDS: NYSTATIN CREAM 15 GM EXT SCH ×2 (07:02→20:45)
[2017-01-31] MEDS: DICYCLOMINE 10 MG CAP PO SCH ×3 (07:02→20:29)
[2017-01-31 07:08] LABS: ERYTHROCYTE SEDIMENTATION RATE 32 mm/hr (0-30)
[2017-01-31] MEDS: FLUTICASONE HFA 110 MCG 12 GM INHALER (FLOVENT) INH SCH ×2 (07:24→20:39)
--- NOTE | 2017-01-31 08:38 | IPNPDOC ---
Subjective Date Seen The patient was seen on 01/31/17. Subjective Chief Complaint/HPI The patient is a 66-year-old female admitted with a reason for visit of FEVER. Events since last encounter Noting improvement in breathing symptoms. Wearing oxygen this am. Only uses oxygen at night at home. Remains on IV steroids. Pulmonology and nephrology following. Constitutional: Denies: Chills, Fever, Night Sweats Gastrointestinal: Reports: Diarrhea (chronic, c. DIff ordered. ), Denies: Abdominal Pain, Constipation, Nausea, Vomiting Genitourinary: Denies: Dysuria, Frequency, Incontinence, Retention Objective Physical Examination General Exam: Positive: Alert, No Acute Distress ENT Exam: Positive: Mucous membr. moist/pink Neck Exam: Positive: Supple Chest Exam: Positive: Wheezing (sporadic) Heart Exam: Positive: Normal S1, Normal S2, Rate Normal Abdomen Exam: Positive: Normal bowel sounds, Soft, Tenderness Extremity Exam: Negative: Edema Psych Exam: Positive: Mental status NL, Mood NL Assessment /Plan Problems (1) Andrey's granulomatosis (granulomatosis with polyangiitis) Status: Acute Problem Text: ANCA+ with positive proteinase 3. Pt will need referral to rheumatology. Discharged is planned for tomorrow. Will submit referral through [facility] to get apt prior to discharge. (2) Necrotizing pneumonia Status: Acute Discussed With: Patient Problem Specific Plan: Consult Specialist, Monitor Clinically Problem Text: CARA without vegetations, ID and Pulm following. Patient is status post bronchoscopy with Dr. Morales. She was started on high-dose IV steroids for concern for vasculitis. Symptoms have improved since being started on steroids 01/26/17. Antibiotics have been discontinued as all cultures have been negative, and biopsy shows only inflammation. Patient is now being tapered off of high-dose steroids by pulmonology. -IV Solu-Medrol has been reduced from 100 every 6 hours to 100 every 8 hours. Wean off of steroid per Pulmonology recommendations, transition to po today - Acapella for mucus clearance - Discharge planning (3) Fever Status: Acute Problem Text: see above B/C negative GI panel negative (4) Pulmonary nodules Status: Acute Response to Treatment: Worse Problem Specific Plan: Consult Specialist, Monitor Clinically, Repeat Labs Problem Text: Patient seems to have new nodules on CT exam. ANCA positive. Status post bronchoscopy with biopsy. -Pathology shows only nonspecific inflammation; cytology is negative for malignancy (5) ATIF (obstructive sleep apnea) Status: Chronic Response to Treatment: Stable Problem Specific Plan: Monitor Clinically Problem Text: Untreated, does not wear CPAP. (6) Anemia of chronic disease Status: Chronic Response to Treatment: Stable Problem Specific Plan: Monitor Clinically Problem Text: History of chronic anemia due to end-stage renal disease. Hemoglobin is stable. (7) End stage renal disease on dialysis Status: Chronic Discussed With: Patient Problem Specific Plan: Consult Specialist, Monitor Clinically Problem Text: Dialysis per Nephrology (8) Goodpasture syndrome Status: Chronic Problem Text: ANCA weakly positive and anti-glomerular basement membrane antibody negative, making Goodpasture's very unlikely. MED is negative, C4 level is normal, C3 level is decreased. - Follow up remaining autoimmune panel Plan/VTE VTE Prophylaxis Ordered?: No (was on heparin this was d/c, enc TEDS, Seq.) VTE Exclusion Pharmacological: Thrombocytopenia Plan Anticipated Discharge: Assisted Living (tomorrow 02/01/2017) Attending note: I saw and evaluated the patient, and I agree with the plan of care as discussed and documented above by Liz Branham. Pt has ANCA+, proteinase 3 positive labs consistent with Granulomatosis polyarteritis. I have submitted an urgent outpatient referral to rheumatology to see if we can get her a followup appointment set up prior to her discharge. Will discharge tomorrow on pred with close followup to rheum and Dr. Cantu. Sana Delatorre MD VS, I&O, 24H, [facility] Vital Signs/I&O Vital Signs Date Time Temp Pulse Resp B/P Pulse Ox O2 Delivery O2 Flow Rate FiO2 01/31/17 06:00 98.2 70 18 175/65 90 Room Air 01/30/17 22:30 2.0 I&O- Last 24 Hours up to 6 AM 01/31/17 05:59 Intake Total 1560 ml Output Total 0 ml Balance 1560 ml Laboratory Data 24H LABS Laboratory Tests 2 01/31/17 06:07: Anion Gap 10, White Blood Count 4.1, Red Blood Count 3.28L, Hemoglobin 9.6L, Hematocrit 31.8L, Mean Corpuscular Volume 96.8H, Mean Corpuscular Hemoglobin 29.2, Mean Corpuscular Hemoglobin Concent 30.1L, Red Cell Distribution Width 19.4H, Platelet Count 197, Neutrophils (%) (Auto) 83.4H, Lymphocytes (%) (Auto) 12.9L, Monocytes (%) (Auto) 2.8, Eosinophils (%) (Auto) 0.3, Basophils (%) (Auto ) 0.3, Neutrophils # (Auto) 3.4, Lymphocytes # (Auto) 0.5L, Monocytes # (Auto) 0.1, Eosinophils # (Auto) 0.0, Basophils # (Auto) 0.0, C-Reactive Protein, Quantitative 0.96H, Blood Urea Nitrogen 55#H, Creatinine 6.32H, Sodium Level 137 , Potassium Level 4.6, Chloride Level 101, Carbon Dioxide Level 26, Calcium Level 7.5L, Erythrocyte Sedimentation Rate 32H, Glomerular Filtration Rate 7.0L , Large Unclassified Cells # 0.0, Large Unclassified Cells % 0.4 CBC/BMP Laboratory Tests 01/31/17 06:07 Calcium Level 7.5 L, Red Blood Count 3.28 L, Mean Corpuscular Volume 96.8 H, Mean Corpuscular Hemoglobin 29.2, Mean Corpuscular Hemoglobin Concent 30.1 L, Red Cell Distribution Width 19.4 H, Neutrophils (%) (Auto) 83.4 H, Lymphocytes ( %) (Auto) 12.9 L, Monocytes (%) (Auto) 2.8, Eosinophils (%) (Auto) 0.3, Basophils (%) (Auto) 0.3, Neutrophils # (Auto) 3.4, Lymphocytes # (Auto) 0.5 L, Monocytes # (Auto) 0.1, Eosinophils # (Auto) 0.0, Basophils # (Auto) 0.0 Microbiology Microbiology 01/22/17 Blood Culture - Final, Complete NO GROWTH AFTER 5 DAYS 01/22/17 Blood Culture - Final, Complete NO GROWTH AFTER 5 DAYS 01/21/17 Blood Culture - Final, Complete NO GROWTH AFTER 5 DAYS 01/21/17 Blood Culture - Final, Complete NO GROWTH AFTER 5 DAYS 01/21/17 Gastrointestinal Tract Panel (PCR) - Final, Complete 01/26/17 Acid Fast Stain - Final, Resulted 01/26/17 Mycobacterial Culture, Resulted Pending 01/26/17 Fungal Smear, Resulted Pending 01/26/17 Fungal Culture, Resulted Pending 01/26/17 Gram Stain - Final, Complete 01/26/17 Bronchoalveolar Lavage Culture - Final, Complete 01/26/17 Acid Fast Stain - Final, Resulted 01/26/17 Mycobacterial Culture, Resulted Pending 01/26/17 Fungal Smear, Resulted Pending 01/26/17 Fungal Culture, Resulted Pending 01/26/17 Bronchial [place] Culture - Final, Complete 01/26/17 Gram Stain - Final, Complete 01/26/17 Bronchoalveolar Lavage Culture - Final, Complete 01/21/17 Respiratory Virus Panel (PCR) (MOISÉS) - Final, Complete 01/26/17 Acid Fast Stain, Received Pending 01/26/17 Mycobacterial Culture, Received Pending 01/26/17 Fungal Smear, Received Pending 01/26/17 Fungal Culture, Received Pending 01/26/17 Anaerobic Culture - Final, Complete 01/26/17 Gram Stain - Final, Complete Essence Branham Jan 31, 2017 08:38 SANA DELATORRE MD Jan 31, 2017 14:36
[2017-01-31] MEDS ORDERED: LOPERAMIDE 2 MG CAP PO ONE (09:00)
[2017-01-31] MEDS: (RENVELA) SEVELAMER **CARBONate** 800 MG TAB PO SCH ×2 (12:14→20:31)
[2017-01-31] MEDS: TIAGABINE 4 MG PO SCH (12:14)
--- NOTE | 2017-01-31 12:22 | IPN ---
DATE: 01/31/2017 SUBJECTIVE: Patient was seen and examined at the bedside today in the morning during work rounds and again during hemodialysis procedure. Patient feels much better. Her IV antibiotics have been stopped. PR3 ANCA significantly positive. Patient has been told that she has Andrey's granulomatosis. IV antibiotics have been stopped. REVIEW OF SYSTEMS: Patient denies any fever, chills, rigors, headache, nausea, vomiting, chest pain, shortness of breath, pain in abdomen, constipation or diarrhea. Rest of review of system is negative. OBJECTIVE: Vital signs: Temperature is 98.2 degrees Fahrenheit, blood pressure is 175/65, pulse is 70, respiratory rate of 18, saturating 90% on room air. Intake and output: Urine output is not recorded. Weight on the bed scale is 76 kg. PHYSICAL EXAMINATION: General: Patient is awake, alert, oriented times three, laying on the bed, no apparent distress. Head and neck exam: Extraocular muscles intact. Pupils equally round and reactive to light. Mucous membranes are moist. Neck is supple. There is no jugular venous distention (JVD). Cardiovascular: S1, S2. Regular rate. No murmur, rub or gallop. Respiratory: Mild expiratory rhonchi and harsh vesicular breathing. Otherwise bilateral equal air entry. Abdomen: Soft, positive bowel sounds, nontender, no ascites, no organomegaly. Extremities: No clubbing or cyanosis. Pulses are 2+. Central nervous system: No focal neurological deficit. Power is 5/5 in all extremities. AV access: Patient has a right arm AV fistula which is being used for dialysis. LAB REVIEW: CBC showed WBC 4.1, hemoglobin 9.6, platelets of 197. BMP showed sodium 137, potassium 4.6, chloride 101, bicarbonate 26, BUN 55, creatinine 6.3, calcium 7.5. Immunology: PR3 ANCA is positive at 24. Globulin 3 is low at 72.2. Globulin 4 is 26.2. Microbiology: Cultures are negative so far. IMAGING: Repeat chest x-ray is done today. Official report is pending. CURRENT MEDICATIONS: Patient's medications were all reviewed by me. Meropenem has been stopped. Patient continues to be on high dose of Solu-Medrol at this time. ASSESSMENT: 66-year-old female with past medical history of end stage renal disease secondary to Goodpasture disease admitted this time because of recurrent fevers which were initially treated as pneumonia. Patient is now diagnosed with Andrey's granulomatosis. PLAN: 1. End stage renal disease on hemodialysis. Patient's regular dialysis day is today. She is being dialyzed according to her regular schedule. We shall try to do an ultrafiltration of 2 liters as tolerated by her blood pressure. 2. Recurrent fevers and lung infection. Patient's PR3 ANCA is high. Her antibiotics have been stopped. She is being treated as Andrey's granulomatosis. She is on IV Solu-Medrol at this time. Tapering of the steroid doses as per pulmonary service. 3. Hypertension. Patient's blood pressure is slightly high today. It is secondary to steroids as well. Blood pressure is expected to improve with ultrafiltration with hemodialysis. No need to escalate the antihypertensive regimen at this time. 4. Anemia secondary to end stage renal disease. Hemoglobin is 9.6 which is suboptimal. Continue current dose of Aranesp 200 mcg IV with hemodialysis.
--- NOTE | 2017-01-31 13:44 | REP ---
CHEST PA AND LATERAL: 01/31/2017. Comparison 01/26/2017, 01/25/2017 CT chest. History: Follow-up pulmonary nodules and left apex opacity. The two-view show indwelling left subclavian catheter with tip in right atrium just below SVC. There are multiple pedicle screws and arch bars from the thoracolumbar junction below into the lumbar spine. Bones are demineralized. There is no acute finding. 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 The indwelling catheter is unchanged. There is less parenchymal opacity in the left upper lobe. There is some improvement in apparent infiltrate or airspace opacity. Nodular density in the left mid lower lung zone adjacent left heart border. This may be at the site of the biopsy as it was not present 5 days ago. No effusion or other acute finding. Some right lateral apical pleural thickening and scarring unchanged. No gross cardiomegaly or edema. Left atrial enlargement noted. No left ventricular enlargement. A mild dextroconvex curve mid-thoracic spine. No free air. Impression: 1. Fibrotic changes in the bases, COPD and indwelling left subclavian catheter tip in right atrium. 2. Improvement in the density of the peripheral consolidative opacity versus mass in the left upper lobe. There is also some right upper lobe lateral pleural thickening. No pleural effusion or acute infiltrate. 3. Nodular density left mid lower lung zone, new since the study 5 days ago related to interval biopsy. Signed by Fritz Trinidad MD 01/31/2017 03:31 P
[2017-01-31] MEDS ORDERED: HEPARIN 1,000 UNITS/ML 10ML VIAL (FOR RADIOLOGY& DIALYSIS ONLY) IV ONE (14:00)
[2017-01-31] MEDS ORDERED: LIDOCAINE 1% SDV 5 ML VIAL SQ ONE (14:00)
[2017-01-31 16:00] VITALS: BP 155/70
[2017-01-31] MEDS: CETIRIZINE (ZyrTEC) 10 MG TAB PO SCH (20:29)
[2017-01-31] MEDS: CYANOCOBALAMIN 500 MCG TAB PO SCH (20:29)
[2017-01-31] MEDS: METOPROLOL TART 50 MG TAB PO SCH (20:30)
[2017-01-31] MEDS: LOSARTAN 50 MG TAB PO SCH (20:30)
[2017-01-31] MEDS: PRAVASTATIN 20 MG TAB PO SCH (20:31)
[2017-01-31] MEDS: FLUTICASONE PROP 0.05% NASAL SPRAY 16 GM (FLONASE) SCH (20:33)
[2017-01-31] MEDS ORDERED: predniSONE 10 MG TAB PO SCH (21:00)
[2017-01-31 22:00] VITALS: BP 182/70
[2017-02-01] MEDS: LEVOTHYROXINE 0.125 MG TAB (125 MCG) PO SCH (05:19)
[2017-02-01] MEDS: SODIUM CHLORIDE 0.9% INJ 10 ML SYR IV SCH (05:19)
[2017-02-01] MEDS: guaiFENesin ER 600 MG TAB PO SCH (05:19)
[2017-02-01 06:00] VITALS: BP 167/78
[2017-02-01 06:01] LABS: CALCIUM LEVEL 8.1 MG/DL (8.8-10.2); CREATININE FOR GFR 4.37 MG/DL (0.55-1.02); GLOMERULAR FILTRATION RATE 10.8 (>45); POTASSIUM SERUM 4.2 MEQ/L (3.5-5.1)
[2017-02-01 06:10] LABS: MEAN CORPUSCULAR HEMOGLOBIN 29.5 pg (27.0-33.0); MEAN CORPUSCULAR HGB CONC 30.9 g/dl (32.0-36.5); MEAN CORPUSCULAR VOLUME 95.5 fl (80.0-96.0); PLATELET COUNT, AUTOMATED 190 k/mm3 (150-450); RED CELL DISTRIBUTION WIDTH 19.6 % (11.5-14.5); WHITE BLOOD COUNT 5.4 K/mm3 (4.0-10.0)
[2017-02-01 06:47] LABS: NUCLEATED RED BLOOD CELL 2 % (0-0)
[2017-02-01 06:48] LABS: ANISOCYTOSIS 2+; POLYCHROMASIA 1+
[2017-02-01] MEDS: FLUTICASONE HFA 110 MCG 12 GM INHALER (FLOVENT) INH SCH (07:20)
[2017-02-01] MEDS ORDERED: PRED20TA PO (07:57)
[2017-02-01] MEDS: NEPHRO-VIT TAB (NEPHROCAPS) PO SCH (08:29)
[2017-02-01 08:30] VITALS: BP 167/78
[2017-02-01] MEDS: LACTOBACILLUS ACIDOPHILUS CAP (BACID) PO SCH (08:30)
[2017-02-01] MEDS: METOPROLOL TART 50 MG TAB PO SCH (08:30)
[2017-02-01] MEDS: DICYCLOMINE 10 MG CAP PO SCH (08:30)
[2017-02-01] MEDS: PANTOPRAZOLE 40MG TAB (PROTONIX) PO SCH (08:30)
[2017-02-01] MEDS: OMEGA-3 1050MG CAPSULE PO SCH (08:30)
[2017-02-01] MEDS: NYSTATIN CREAM 15 GM EXT SCH (08:31)
[2017-02-01] MEDS ORDERED: predniSONE 20 MG TAB PO SCH ×2 (09:00)
--- NOTE | 2017-02-01 15:20 | IPN ---
DATE: 02/01/2017 SUBJECTIVE: Patient was seen and examined at the bedside today in the morning. She feels much better. She does not have any active complaints. She was dialyzed yesterday according to her schedule. She tolerated the ultrafiltration well. The patient reports that she will probably get discharged from the hospital today. REVIEW OF SYSTEMS: Patient denies any fever, chills, rigors, headache, nausea, vomiting, chest pain, shortness of breath, pain in abdomen, constipation or diarrhea. Rest of review of system is negative. OBJECTIVE: Vital signs: Temperature is 98.4 degrees Fahrenheit, blood pressure is 167/78, pulse is 71, respiratory rate of 18, saturating 98% on room air. Intake and output: The patient got hemodialysis done yesterday. Ultrafiltration was 2.5 liters. Weight on the bed scale is 76.6 kg. PHYSICAL EXAMINATION: GENERAL: Patient is awake, alert, oriented times three, laying on the bed, no apparent distress. HEAD AND NECK EXAM: Extraocular muscles intact. Pupils equally round and reactive to light. Mucous membranes are moist. Neck is supple. There is no jugular venous distention (JVD). CARDIOVASCULAR: S1, S2. Regular rate. No murmur, rub or gallop. RESPIRATORY: Clear to auscultation bilaterally. Bilateral equal air entry. No rales or rhonchi. ABDOMEN: Soft, positive bowel sounds, nontender. No ascites. No organomegaly. EXTREMITIES: No clubbing or cyanosis. Pulses are 2+. CENTRAL NERVOUS SYSTEM: No focal neurological deficit. Power is 5/5 in all extremities. AV ACCESS: Patient has a right upper arm AV fistula, which is having a good thrill and bruit. LAB REVIEW: CBC showed WBC 5.4, hemoglobin 9.9, platelets of 190. BMP showed sodium 139, potassium 4.2, chloride 100, bicarbonate 29, BUN 32, creatinine 4.3, calcium 8.1. CURRENT MEDICATIONS: Patient's medications were all reviewed by me. There is no change in the medication today as compared with yesterday. ASSESSMENT: 66-year-old female with past medical history of end stage renal disease secondary to Goodpasture disease in the past admitted this time because of recurrent fevers and pneumonia. Finally, she has been diagnosed with Andrey's granulomatosis at this time. PLAN: 1. End stage renal disease on hemodialysis. Patient's regular dialysis days are Sunday, Sunday and Sunday. She was dialyzed according to her schedule yesterday. She tolerated 2.5 liters of ultrafiltration. Next hemodialysis session will be tomorrow. 2. ANCA Vasculitis (MPA/GPA/Churg tone): The patient has a PR3 ANCA positive. She is currently on steroids. The patient reports that she is going to followup with rheumatology in [place] in about one week after discharge. The rest of the management is as per pulmonology and rheumatology. 3. Hypertension. Blood pressure is slightly elevated. It might be secondary to high dose steroids as well. Continue current regimen. If needed, her antihypertensive regimen will be escalated as an outpatient. 4. Anemia secondary to end stage renal disease. Hemoglobin is almost close to 10. Continue current dose of Aranesp 200 mcg IV with hemodialysis. The rest of the anemia management will be according to outpatient dialysis protocol. DISCHARGE PLANNING: It is okay to discharge the patient from nephrology standpoint. She will be dialyzed according to her schedule tomorrow as an outpatient. SOL
--- NOTE | 2017-02-01 18:04 | IPN ---
DATE: 01/31/2017 Rocío seems to be improving everyday. She states that she feels much better since she has been on the steroids. Antibiotics have been discontinued. She denies any fevers or chills. No rigors, no headache, no nausea, vomiting or diarrhea. Shortness of breath has improved. On physical exam, temperature is 99., pulse 84, respirations 20, blood pressure 165/70, oxygen saturation 97% on room air. Heart: Normal S1, S2. No murmurs, rubs, or gallops. Lungs: Few expiratory rhonchi. No wheezes or crackles. Abdomen: Soft, nontender. No hepatosplenomegaly. Extremities: No clubbing cyanosis or edema. Arteriovenous (AV) fistula right arm. Trace edema. LABORATORY DATA: White count is 4.1, hemoglobin 9.6, hematocrit 31.8, platelets 197, 83% neutrophils, 12% lymphocytes, 3% monocytes, ESR 32. Sodium 137, potassium 4.36, chloride 101, bicarbonate 26, BUN 55, creatinine 6.32, glucose 198, calcium 7.5, CRP 0.96, down from 12.2 this admission. Bronchoalveolar lavage (BAL) washing all have been negative. AFB smear is negative. Fungal smear is negative. Cultures are pending. Pathology showed fragments of benign bronchial wall mucosa with focal reactive changes, nonspecific chronic inflammation. Left upper lung, left lower lung there is no significant acute or chronic inflammation. IMMUNOLOGY: Proteinase 3 (PR3) was 24 with the normal of 3. ANCA was 1:20. Complement levels: C3 is 72.2, C4 26. Cryptococcal antigen negative. Histoplasma antibody negative. Serum Histoplasma antigen negative. HIV negative. QuantiFERON TB Gold was negative. IMPRESSION: 1. Andrey granulomatosis involving the lung and possibly the nasal mucosa. The patient had presented with hemoptysis and then nose bleeds that have resolved at this point. The patient has responded to intravenous (IV) Solu-Medrol and now has been taper to prednisone 30 mg a day. I have discussed the case at length with Dr. Ben Morales and Dr. Porfirio Dobbs, who is a product development intern in [facility]. He will be seeing the patient in followup. He recommended a lung biopsy as a diagnosis of vasculitis needs to be made by a tissue biopsy and even though ANCA is positive, that it is highly suspicious for Andrey but does not make the diagnosis. Since the bronchoscopy did not have tissue that should vasculitis we need to do an open lung biopsy or VAT. 2. End-stage renal disease from Goodpasture syndrome. 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 PLAN: Consult Dr. Nelson for biopsy. I have called him and discussed the case with him. I have discussed the case with Dr. Morales and Brenda Branham, to hold the discharge until we get a biopsy specimen. Also will obtain hepatitis B, hepatitis C serology to rule out other possible causes of vasculitis. HIV was already done and was negative.
[2017-02-02 10:09] LABS: HEPATITIS B SURFACE ANTIBODY POSITIVE (POSITIVE)
--- NOTE | 2017-02-02 14:30 | DSES ---
DATE OF ADMISSION: 01/21/2017 DATE OF DISCHARGE: 02/01/2017 PRIMARY CARE PHYSICIAN: Dr. Jovita Cantu HISTORY OF PRESENT ILLNESS: A 66-year-old female with multiple previous admissions presented to [facility] Emergency Room for acute onset of fever and cold chills. Also had some significant diarrhea and complained of worsening left lower lung pleuritic pain. Patient has a prior history of necrotizing/organizing pneumonia on bronchoscopy with biopsy and had been receiving significant antibiotic regimen with recurrent hospitalizations for fever and pneumonia. Patient was subsequently admitted. Multiple consults were obtained, which include nephrology, infectious disease, as well as pulmonology. Patient is status post repeat bronchoscopy by Dr. Ben Morales. 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 Patient's intravenous (IV) antibiotics have been stopped. She has been maintained on steroid regimen and is in need of a rheumatology consult. This has been arranged as an outpatient prior to her discharge. She has an appointment with Dr. Ríos on 02/06/2017. Patient has been dialyzed throughout her hospitalization accordingly per nephrology's instructions. She has been afebrile for the last several days. Has been weaned off of her daytime oxygen and continues to use her oxygen at night, as she previously did in her home environment. PHYSICAL EXAMINATION: Today, vital signs are stable. She is afebrile. HEENT: Neck is supple without lymphadenopathy or jugular venous distention (JVD). CARDIOVASCULAR: Heart rate and rhythm are regular. PULMONARY: Lungs are clear. ABDOMEN: Soft and nontender. Bilateral lower extremities are without any edema. NEUROLOGIC: Patient is alert and oriented times three. PSYCHIATRIC: Affect is appropriate and congruent. Labs show a white blood cell count of 5000, hemoglobin and hematocrit of 9 and 32, which is stable, platelet count of 190. Chemistry shows sodium of 139, potassium 4.2, BUN 32, creatinine 4.37, and calcium of 8.1. ASSESSMENT: 1. Andrey's granulomatosis. 2. End-stage renal disease, on hemodialysis. 3. Recurrent fevers and lung infection. This is probably secondary to the Andrey's granulomatosis. Intravenous (IV) antibiotics have been stopped. 4. Hypertension. 5. Anemia secondary to end-stage renal disease. 6. Obstructive sleep apnea. 7. Goodpasture syndrome. 8. History of irritable bowel with chronic diarrhea. 9. Chronic obstructive pulmonary disease (COPD). 10. Gastroesophageal reflux disease (GERD). 11. Diastolic congestive heart failure. PLAN: Patient will be discharged back [place] [facility] [place] Diet is renal. Activity is as tolerated. She will followup with Dr. Ríos on February 06 as indicated. She will followup with her primary care physician (PCP) within the next 7 days; that is Dr. Jovita Cantu. She will resume her hemodialysis by Dr. Solano and Dr. Duong per her route schedule on Sunday, Sunday, Sunday. Patient's medication list is as follows: - prednisone 20 mg tablets. She will take 20 mg in the morning and 10 mg in the evening. - acetaminophen 325 mg tablets, two by mouth every 4 hours as needed for pain - hydrocodone with acetaminophen one tablet every 4 hours as needed for pain - Ventolin HFA two puffs every 6 hours as needed for shortness of breath - Tessalon Perles 100 mg by mouth three times a day as needed cough - calcium with vitamin D one tablet by mouth twice a day - cefdinir 300 mg by mouth twice a day - cetirizine 10 mg by mouth at bedtime - vitamin B12 at 1000 mcg by mouth at bedtime - cyclobenzaprine 5 mg by mouth three times a day as needed anxiety - dextromethorphan 5 mL by mouth every 6 hours as needed for cough - dicyclomine 20 mg by mouth four times a day - fish oil 1000 mg daily - Flonase 50 mcg two sprays each nostril at bedtime - fluticasone HFA two puffs twice a day - guaifenesin 600 mg by mouth every 12 hours - guaifenesin with dextromethorphan 10 mL by mouth every 6 hours as needed for cough - hydrocortisone cream for hemorrhoids, which is Anusol HC, apply twice a day as needed - Lactobacillus acidophilus one tablet daily - levothyroxine 125 mcg by mouth every morning - lidocaine/prilocaine cream one dose topically three times per week pre dialysis - loperamide as needed after each loose stool - losartan potassium 50 mg by mouth every evening - metoprolol 50 mg by mouth at bedtime - metoprolol 50 mg by mouth as directed four times per week, Sunday, Sunday, , and Sunday - nystatin cream topically twice a day to rectal area - Zofran as needed for nausea and vomiting - pantoprazole 40 mg by mouth twice a day - polyvinyl alcohol two drops to each eye every 2 hours as needed for dry eyes - pravastatin 40 mg by mouth at bedtime - prochlorperazine maleate 10 mg by mouth every 6 hours as needed for nausea - Refresh ointment at bedtime to each eye - Steph-Yovani one tablet by mouth daily - Renvela 800 mg by mouth twice a day - simethicone 80 mg chewable by mouth four times a day - sodium polystyrene sulfonate 15 grams by mouth three times weekly if missing dialysis - Gabitril 4 mg by mouth daily - vitamin D 50,000 international units by mouth monthly Patient is discharged in stable and satisfactory condition with no further questions at time of discharge.
== END 2017-02-01 11:50 | disposition home health service (06) | DRG 542 ==
LOC: EDBD 17:09 → M ED 18:28 → M ED INP 21:54 → M PCU 22:38 → M MS5PR 01-27 13:18
PROVIDERS: ADMIT Internal Medicine; ATTEND Family Medicine
PROC: 5A1D60Z (ICD-10-PCS; 2017-01-22)
PROC: B246ZZ4 Ultrasonography of Right and Left Heart, Transesophageal (ICD-10-PCS; 2017-01-24)
PROC: 0BB88ZX Excision of Left Upper Lobe Bronchus, Via Natural or Artificial Opening Endoscopic, Diagnostic (ICD-10-PCS; 2017-01-26)
PROC: 0B9B8ZX Drainage of Left Lower Lobe Bronchus, Via Natural or Artificial Opening Endoscopic, Diagnostic (ICD-10-PCS; 2017-01-26)
PROC: 05H633Z Insertion of Infusion Device into Left Subclavian Vein, Percutaneous Approach (ICD-10-PCS; 2017-01-26)
PROC: 0BBB8ZX Excision of Left Lower Lobe Bronchus, Via Natural or Artificial Opening Endoscopic, Diagnostic (ICD-10-PCS; principal; 2017-01-26 17:00)
DX: M31.31 Wegener's granulomatosis with renal involvement (principal); N18.6 End stage renal disease; J85.0 Gangrene and necrosis of lung; I12.0 Hypertensive chronic kidney disease with stage 5 chronic kidney disease or end stage renal disease; I50.32 Chronic diastolic (congestive) heart failure; N25.81 Secondary hyperparathyroidism of renal origin; M31.0 Hypersensitivity angiitis; K58.0 Irritable bowel syndrome with diarrhea; E89.0 Postprocedural hypothyroidism; J44.9 Chronic obstructive pulmonary disease, unspecified; D50.9 Iron deficiency anemia, unspecified; K44.9 Diaphragmatic hernia without obstruction or gangrene; G47.33 Obstructive sleep apnea (adult) (pediatric); K21.9 Gastro-esophageal reflux disease without esophagitis; R91.8 Other nonspecific abnormal finding of lung field; D63.8 Anemia in other chronic diseases classified elsewhere; K57.90 Diverticulosis of intestine, part unspecified, without perforation or abscess without bleeding; D63.1 Anemia in chronic kidney disease; F40.240 Claustrophobia; E66.9 Obesity, unspecified; E55.9 Vitamin D deficiency, unspecified; D69.6 Thrombocytopenia, unspecified; J30.9 Allergic rhinitis, unspecified; Z99.2 Dependence on renal dialysis; M79.2 Neuralgia and neuritis, unspecified; Z98.1 Arthrodesis status; Z87.891 Personal history of nicotine dependence; Z90.710 Acquired absence of both cervix and uterus; Z86.010 Personal history of colon polyps; Z88.8 Allergy status to other drugs, medicaments and biological substances; Z79.891 Long term (current) use of opiate analgesic; Z79.899 Other long term (current) drug therapy; Z79.2 Long term (current) use of antibiotics; Z91.09 Other allergy status, other than to drugs and biological substances; Z68.25 Body mass index [BMI] 25.0-25.9, adult

== ENCOUNTER → 2017-03-16 | Outpatient (CLI) | payer MEDICARE, MEDICAID ==
[~2017-03-16] MED LIST changes: +ANUS2.5C2 PR; +ARTIFICAL TEARS OU; +GUAI100S29 PO; +HEPARIN 1,000 UNITS/ML 10ML VIAL (FOR RADIOLOGY& DIALYSIS ONLY) As Ordered ONE; +IMOD2CAP PO; +ISOVUE-300 61% 50ML VIAL (Q9967) As Ordered ONE; +NYST-6 TOP; +NYST10CR EXT; +PERC5TAB6 PO; +PRED20TA PO; +SODIUM BICARBONATE 4 % INJ 2.4MEQ 5 ML VIAL (THIS HAS A PRESERVATIVE) As Ordered ONE; +TYLE325T5 PO; +VITA100072 PO; +[UNRECOGNIZED DRUG - CODE] PO; +compazine PO; +immodium
--- NOTE | 2017-03-16 14:56 | REPKIM ---
CLINICAL HISTORY: Patient with end stage renal disease on hemodialysis via right upper arm AV fistula presents with suspected AVF dysfunction. On last encounter, the basilic outflow vein pseudoaneurysm/degeneration that threatened the integrity of the overlying skin was treated with covered stent. PROCEDURES PERFORMED: Hemodialysis fistulogram and reflux arteriogram INTERVENTIONALIST: Alexander Hanson MD CONSENT: The risks, benefits and alternatives to the procedure were explained to the patient and informed written consent was obtained. MEDICATIONS: Local Lidocaine CONTRAST: 22 mL Isovue 300 EBL: less than 5 mL FLUORO TIME: 0.4 minutes PROCEDURE/FINDINGS: HEMODIALYSIS FISTULOGRAM: The patient was brought to the interventional radiology suite and placed in supine position. Time out procedure was performed. The right upper arm was prepped and draped in a usual sterile fashion. The venous outflow of the right upper arm AVF just central to the arteriovenous anastomosis was accessed with a micropuncture needle after local anesthetic. Using this access a 5-Tuvaluan catheter was introduced with its tip directed towards the venous outflow. Contrast was injected and fistulogram and central venogram were performed. A reflux fistulogram was also performed. The catheter was removed and hemostasis achieved by manual compression over puncture site. The patient tolerated the procedure well with no immediate complications. This procedure was performed using fluoroscopy. Dr. Hanson was present. IMPRESSION: 1. Widely patent right upper arm AVF from the brachial artery to basilic vein. The previously noted PSA and degeneration has successfully excluded with existing covered stent graft in the basilic outflow vein. Only a small varix noted in the arterial end of the stent graft at this time. 2. The basilic outflow vein, axillary vein, subclavian vein and superior vena cava are continuous and patent with no significant stenosis. The arteriovenous anastomosis is widely patent. cc: MD Iraida Jaquez MD MTDD
== END | disposition home or self-care (01) ==
LOC: M IRPRO 10:42
PROVIDERS: ATTEND Surgery Vascular Surgery
DX: T82.898A Other specified complication of vascular prosthetic devices, implants and grafts, initial encounter (principal); N18.6 End stage renal disease; Z99.2 Dependence on renal dialysis
CPT/HCPCS: 36901; C1894; Q9967

== ENCOUNTER → 2017-04-03 | Outpatient (CLI) | payer MEDICARE, MEDICAID ==
[~2017-04-03] MED LIST changes: -HEPARIN 1,000 UNITS/ML 10ML VIAL (FOR RADIOLOGY& DIALYSIS ONLY) As Ordered ONE; -ISOVUE-300 61% 50ML VIAL (Q9967) As Ordered ONE; -SODIUM BICARBONATE 4 % INJ 2.4MEQ 5 ML VIAL (THIS HAS A PRESERVATIVE) As Ordered ONE
--- NOTE | 2017-04-03 12:45 | REP ---
CT of the chest without IV contrast: Comparisons are 01/25/2017 and 01/21/2017. The left upper lobe mass has decreased in size. There are now multiple small nodules in this location. The right upper lobe mass has slightly decreased in size and appears to be multiple confluent smaller nodules today. One of the two right lower lobe nodules is no longer present. The right lower lobe nodule in the extreme posterior sulcus has significantly decreased size. On the comparison study there was an infiltrate like density in the right middle lobe. This is no longer present. On the comparison study there was a focal nodule posteriorly in the left upper lobe adjacent to the major fissure. This is no longer present. The previous left lower lobe density is no longer present. The previous bilateral pleural effusions are no longer present. There is no mediastinal lymph node enlargement. This is unchanged. No axillary lymph node enlargement. This is unchanged. In the absence of IV contrast the study is insensitive for hilar adenopathy. Half she: All of the patient's lung masses and nodules have decreased in size or are no longer present. The previous bilateral pleural effusions have resolved. There is no mediastinal adenopathy. This is unchanged. Signed by Karan Mclain MD 04/03/2017 12:35 P
== END ==
LOC: M RAD 10:55
PROVIDERS: ATTEND Internal Medicine Pulmonary Disease
DX: M31.30 Wegener's granulomatosis without renal involvement (principal)

== ENCOUNTER → 2017-04-12 | Outpatient (REF) | payer MEDICARE, MEDICAID | LOC: M LAB REF 13:02 | PROVIDERS: ATTEND Internal Medicine Medical Oncology | DX: M31.30 Wegener's granulomatosis without renal involvement (principal) ==

== ENCOUNTER → 2017-05-01 | Outpatient (CLI) | payer MEDICARE, MEDICAID ==
[~2017-05-01] MED LIST changes: -ACET-654 PO; +ACET1TAB17 PO; +BACITAB PO; -BACITAB3 PO; -CYCL5TA PO; +CYCL5TAB PO; +GAS1CHW PO; -GAS80CHW PO; +METO50TA7 PO; +METR1TAB66 PO; -METR500T10 PO; -MUCI600T34 PO; +MUCI600T37 PO; -ONDA1TAB15 PO; +ONDA4TAB5 PO; +PERC5TAB12 PO; -PERC5TAB6 PO; -POLY0.05 OU; +POLY1.4S OU; -PRED10TA PO; +PRED10TA2 PO; -PROA1AER INH; +PROAAER10 INH; -ULTR50TA PO; +ULTR50TA8 PO
--- NOTE | 2017-05-01 14:46 | REPMRS ---
Patient History The patient states she had a clinical breast exam in 03/2017. Patient is postmenopausal and is nulliparous. Family history of breast cancer in mother at age 65 and breast cancer in paternal aunt at age 65. Took hormonal contraceptives for 1 year. Took progesterone for 10 years. Digital Woman Screen Mammo: May 01, 2017 - Exam #: [id number] Bilateral CC and MLO view(s) were taken. Technologist: Bryanna Rogers Technologist Prior study comparison: November 11, 2015, digital woman screen mammo performed at [facility]. August 20, 2014, bilateral bilat screen digital mammo, performed at [facility] ([place]). FINDINGS: The breast tissue is heterogeneously dense. This may lower the sensitivity of mammography. There has been no change in the appearance of the mammogram from the prior studies. There is a moderate amount of residual fibroglandular tissue which is fairly symmetric. There is no interval development of dominant mass, areas of architectural distortion, or clustered microcalcification typical of malignancy. ASSESSMENT: BI-RADS/ACR category 1 mammogram. Negative. Given the family history and dense breast parenchyma, MRI of the breasts is suggested. Recommendation Routine screening mammogram in 1 year (for women over age 40). This mammogram was interpreted with the aid of an FDA-approved computer-aided dectection system. Electronically Signed By: Karan Aguilar MD 05/01/17 2143
--- NOTE | 2017-05-03 08:45 | DEXA ---
AP SPINE L1 - L4 Not done. LT FEMUR TOTAL 0.577 -3.4 -2.2 RT FEMUR TOTAL 0.550 -3.6 -2.4 TOTAL BODY TOTAL OTHER DUAL FEMUR FRAX* ASSESSMENT Risk factors: Prednisone use, history of fracture as adult, history mother fracture both hips, premature menopause. 10 year probability of fracture Major osteoporotic fracture 61.6 % Hip fracture 20.7 % COMMENTS: There is osteoporosis of the hips. The density of the left hip has decreased 18.6% since 07/05/2011. The decreased density of the left hip does represent a significant change. The decreased density of the right hip does represent a significant change. The density of the right hip has decreased 30.5% since the initial exam on 08/04. The density of the right hip has decreased 25.9% since the most recent exam on 07/05/2011. FOLLOW-UP: Recommendation for the next bone density exam: 2 years. SOL
== END ==
LOC: M WHC 13:29
PROVIDERS: ATTEND Family Medicine
DX: Z12.31 Encounter for screening mammogram for malignant neoplasm of breast (principal); M81.8 Other osteoporosis without current pathological fracture; Z78.0 Asymptomatic menopausal state
CPT/HCPCS: 77080; G0202

== ENCOUNTER → 2017-07-02 | Outpatient (CLI) | payer MEDICARE, MEDICAID ==
--- NOTE | 2017-07-02 12:16 | REP ---
Clinical: Right-sided chest and rib pain Technique: Frontal view of the chest with multiple views of the right hemithorax. Findings: Frontal view of the chest demonstrates stable chronic interstitial changes and biapical opacities which may represent scarring and/or mass lesions given in comparison to chest CT dated 01/25/2017. Small scattered nodules in the periphery of the left mid lung zone as well as in the periphery of the right upper lung zone cannot be excluded. Subtle sclerotic/blastic change involving the lateral third or fourth rib is suggested as well as findings to suggest possible subacute fracture at anterolateral 7th rib. Impression: Cannot exclude rib lesion along the lateral aspect of the right third or fourth rib. Suspected subacute fracture along the anterolateral 7th rib. Signed by Junior Delgado MD 07/02/2017 12:07 P
== END ==
LOC: M SMT 10:28
PROVIDERS: ATTEND Family Medicine
DX: E89.0 Postprocedural hypothyroidism (principal); Z11.59 Encounter for screening for other viral diseases; R07.81 Pleurodynia

== ENCOUNTER → 2017-10-05 | Outpatient (CLI) | payer MEDICARE, MEDICAID ==
--- NOTE | 2017-10-05 15:04 | REP ---
Left rib series: Five views including PA chest. History: Rib pain on the left side. Comparison study July 02, 2017. Findings: Upright PA chest x-ray shows noncalcified nodular densities in the left upper perihilar region and the largest of these measures 12 mm in the left mid lung zone. These are felt to be unchanged. Pleuroparenchymal fibrosis is seen in the apices bilaterally, left more so than right as before. The heart is mildly enlarged. This is unchanged. There is no evidence of pneumothorax or hydrothorax. Upper lumbar/lower thoracic fusion hardware is noted as before. Multiple views of the left rib cage show diffuse osteopenia. There are old healed fractures of the anterior ribs affecting ribs numbers 6 and 9. No acute rib fracture is appreciated. No bony destructive lesion is seen. Impression: 1. Old rib fractures on the left with diffuse osteopenia. No acute rib fracture seen. 2. Cardiomegaly. 3. Pulmonary nodules and pleuroparenchymal fibrosis in the lung plummer, unchanged. Signed by Reynaldo Alcala MD 10/05/2017 04:15 P
== END ==
LOC: M SMT 10:25
PROVIDERS: ATTEND Family Medicine
DX: E89.0 Postprocedural hypothyroidism (principal); R07.81 Pleurodynia

== ENCOUNTER → 2017-12-14 | Outpatient (CLI) | payer MEDICARE, MEDICAID ==
[2017-12-14 17:30] LABS: BASO % 0.7 % (0.0-1.0); EOS # 0.2 10^3/uL (0.0-0.50); EOS % 4.4 % (0.0-3.0); HEMOGLOBIN 11.9 g/dl (12.0-16.0); IMMATURE GRANULOCYTE % 0.5 % (0-3.0); LYMPH % 22.9 % (24.0-44.0); MEAN CORPUSCULAR HEMOGLOBIN 27.8 pg (27.0-33.0); MEAN CORPUSCULAR HGB CONC 30.5 g/dl (32.0-36.5); MEAN CORPUSCULAR VOLUME 91.1 fl (80.0-96.0); MONO # 0.5 10^3/uL (0.0-0.8); MONO % 12.5 % (0.0-5.0); NEUTROPHILS # 2.6 10^3/uL (1.8-7.7); PLATELET COUNT, AUTOMATED 150 10^3/uL (150-450); RED BLOOD COUNT 4.28 10^6/uL (4.00-5.40); WHITE BLOOD COUNT 4.3 10^3/uL (4.0-10.0)
[2017-12-14 17:52] LABS: ALBUMIN 3.7 GM/DL (3.2-5.2); ALBUMIN/GLOBULIN RATIO 1.32 (1.00-1.93); ALKALINE PHOSPHATASE 160 U/L (45-117); ALT/SGPT 12 U/L (12-78); ANION GAP 9 MEQ/L (8-16); AST/SGOT 14 U/L (7-37); BILIRUBIN,TOTAL 0.7 MG/DL (0.2-1.0); BLOOD UREA NITROGEN 16 MG/DL (7-18); C REACTIVE PROTEIN QUANTITATIV 2.54 MG/DL (0.00-0.30); CARBON DIOXIDE LEVEL 34 MEQ/L (21-32); CHLORIDE LEVEL 98 MEQ/L (98-107); CREATININE FOR GFR 4.37 MG/DL (0.55-1.30); GLOMERULAR FILTRATION RATE 10.8 (>45); GLUCOSE, FASTING 177 MG/DL (70-100); POTASSIUM SERUM 3.6 MEQ/L (3.5-5.1); SODIUM LEVEL 141 MEQ/L (136-145); TOTAL PROTEIN 6.5 GM/DL (6.4-8.2)
[2017-12-14 19:39] LABS: ERYTHROCYTE SEDIMENTATION RATE 24 mm/hr (0-30)
== END ==
LOC: M SMT 12:05
DX: M31.30 Wegener's granulomatosis without renal involvement (principal)
CPT/HCPCS: 80053

== ENCOUNTER → 2017-12-20 | Outpatient (CLI) | payer MEDICARE, MEDICAID ==
[~2017-12-20] MED LIST changes: -/ONDA4TA SL; -ACET1TAB17 PO; -ALBU17IN INH; -ALL10TAB27 PO; -AMOX875T PO; -ANUS2.5C2 PR; -ARTI99.0 OU; -ARTIFICAL TEARS OU; -B-12100010 PO; -BACIDCA PO; -BACITAB PO; -BENZ100C5 PO; -CALC25TA PO; -CALCTAB68 PO; -CALTCHW5 PO; -CEFD1CAP8 PO; -CEFD300CAP PO; -CELE20TA PO; -CETI10TA PO; -COMP1TAB PO; -CYCL1CAP2 PO; -CYCL5TAB PO; -DEXT75EL PO; -DEXTPOW57 IV; -DICY20TA PO; -DICY20TA11 PO; -DRIS50002 PO; -EPOG1000 IV; -FISH1000 PO; -FLAG500T PO; -FLON0.054; -FLON1SPR; -FLOV110A IN; -FLOVENT INH; -FLUT11IN INH; -GABI4TAB PO; -GAS1CHW PO; -GLUC1INJ2 SC; -GLUC4CHW PO; -GLYC3350 PO; -GUAI100S29 PO; -GUAI1SYP8 PO; -GUAI1TAB PO; -HYDR-3713 PO; -IMOD2CAP PO; -IMOD2TAB16 PO; -INSUH10VL SC; -IPRASOL4 NEB; +ISOVUE-300 61% 50ML VIAL (Q9967) As Ordered; -LEVO100T5 PO; -LEVO125T41 PO; -LIDO1CRE14 TOP; -LISI40TAB PO; -LOSA50TA20 PO; -MEGE400S9 PO; -METO25TAB PO; -METO50TA2 PO; -METO50TA7 PO; -METR1TAB66 PO; +MIDAZOLAM INJ 2 MG/2 ML VIAL (J2250) As Ordered; -MUCI600T37 PO; -NEUR600T PO; -NYST-6 TOP; -NYST10CR EXT; -NYST50SS SS; -OCEA0.654; -ONDA4TAB5 PO; -OXYC1TAB23 PO; -PEG1POW PO; -PERC5TAB12 PO; -PERCOCET PO; -PHEN1SUP6 IV; -POLY1.4S OU; -PRAV40TA PO; -PRAV40TA2 PO; -PRED10TA2 PO; -PRED20TA PO; -PRED50TA PO; -PRED5TA PO; -PRIN5TAB PO; -PROAAER IN; -PROAAER10 INH; -PROB1TAB PO; -PROBCAP4 PO; -PROC10TA PO; -PROC5TA PO; -PROT1TAB2 PO; -REFROIN OU; -RENATAB5 PO; -RENV2TAB PO; -ROBISYP5 PO; -SALI0.9I2 IV; -SIME80TA PO; -SODI15SS PO; -SPIR25TA2 PO; -STOO100C PO; -SULF1TAB72 PO; -SYNT100T PO; -SYNT125T PO; -TYLE167L PO; -TYLE325T5 PO; -ULTR50TA8 PO; -VANC12CA PO; -VERA120T2 PO; -VERA1TAB10 PO; -VITA10002 PO; -VITA100072 PO; -ZOFR20TA PO; -ZOFR4SOL IV; -ZYRT10TA2 PO; -[UNRECOGNIZED DRUG - CODE] PO; -compazine PO; -cytoxan PO; +fentaNYL 100 MCG/2 ML INJECTION (J3010) As Ordered; -immodium
== END | disposition home or self-care (01) ==
LOC: M IRPRO 06:46
DX: T82.858A Stenosis of other vascular prosthetic devices, implants and grafts, initial encounter (principal); N18.6 End stage renal disease; Z99.2 Dependence on renal dialysis
CPT/HCPCS: 36902

== ENCOUNTER → 2018-02-04 | Outpatient (CLI) | payer MEDICARE, MEDICAID | LOC: M PLARAD 13:19 | DX: M16.0 Bilateral primary osteoarthritis of hip (principal) | CPT/HCPCS: 73721 ==

== ENCOUNTER → 2018-02-08 | Outpatient (REF) | payer MEDICARE, MEDICAID ==
[2018-02-12 10:51] LABS: BASO % 0.6 % (0.0-1.0); EOS # 0.3 10^3/uL (0.0-0.50); EOS % 4.7 % (0.0-3.0); HEMATOCRIT 34.5 % (36.0-47.0); HEMOGLOBIN 10.7 g/dl (12.0-15.5); IMMATURE GRANULOCYTE % 0.3 % (0-3.0); LYMPH # 1.6 10^3/uL (1.5-4.5); LYMPH % 25.6 % (24.0-44.0); MEAN CORPUSCULAR HEMOGLOBIN 27.1 pg (27.0-33.0); MEAN CORPUSCULAR VOLUME 87.3 fl (80.0-96.0); MONO # 0.7 10^3/uL (0.0-0.8); MONO % 11.3 % (0.0-5.0); NEUTROPHILS # 3.7 10^3/uL (1.8-7.7); NEUTROPHILS % 57.5 % (36.0-66.0); PLATELET COUNT, AUTOMATED 167 10^3/uL (150-450); RED BLOOD COUNT 3.95 10^6/uL (4.00-5.40); RED CELL DISTRIBUTION WIDTH 18.5 % (11.5-14.5); WHITE BLOOD COUNT 6.4 10^3/uL (4.0-10.0)
[2018-02-12 11:31] LABS: ERYTHROCYTE SEDIMENTATION RATE 34 mm/hr (0-30)
[2018-02-12 11:35] LABS: ALBUMIN 3.1 GM/DL (3.2-5.2); ALBUMIN/GLOBULIN RATIO 1.15 (1.00-1.93); ALKALINE PHOSPHATASE 142 U/L (45-117); ALT/SGPT 9 U/L (12-78); ANION GAP 11 MEQ/L (8-16); AST/SGOT 9 U/L (7-37); BILIRUBIN,TOTAL 0.9 MG/DL (0.2-1.0); BLOOD UREA NITROGEN 24 MG/DL (7-18); C REACTIVE PROTEIN QUANTITATIV 6.48 MG/DL (0.00-0.30); CALCIUM LEVEL 7.7 MG/DL (8.8-10.2); CARBON DIOXIDE LEVEL 31 MEQ/L (21-32); CHLORIDE LEVEL 100 MEQ/L (98-107); CREATININE FOR GFR 7.12 MG/DL (0.55-1.30); GLOMERULAR FILTRATION RATE 6.1 (>45); GLUCOSE, FASTING 68 MG/DL (70-100); POTASSIUM SERUM 4.2 MEQ/L (3.5-5.1); SODIUM LEVEL 142 MEQ/L (136-145); TOTAL PROTEIN 5.8 GM/DL (6.4-8.2)
== END ==
DX: M31.30 Wegener's granulomatosis without renal involvement (principal)
CPT/HCPCS: 80053

== ENCOUNTER → 2018-03-05 | Outpatient (REF) | payer MEDICARE, MEDICAID ==
[2018-03-05 09:37] LABS: BASO % 0.7 % (0.0-1.0); EOS # 0.3 10^3/uL (0.0-0.50); HEMATOCRIT 33.3 % (36.0-47.0); IMMATURE GRANULOCYTE % 0.3 % (0-3.0); LYMPH # 1.2 10^3/uL (1.5-4.5); LYMPH % 21.4 % (24.0-44.0); MEAN CORPUSCULAR HEMOGLOBIN 26.6 pg (27.0-33.0); MEAN CORPUSCULAR VOLUME 88.6 fl (80.0-96.0); MONO # 0.6 10^3/uL (0.0-0.8); NEUTROPHILS # 3.6 10^3/uL (1.8-7.7); NEUTROPHILS % 62.6 % (36.0-66.0); PLATELET COUNT, AUTOMATED 157 10^3/uL (150-450); RED BLOOD COUNT 3.76 10^6/uL (4.00-5.40); RED CELL DISTRIBUTION WIDTH 18.3 % (11.5-14.5); WHITE BLOOD COUNT 5.8 10^3/uL (4.0-10.0)
[2018-03-05 10:13] LABS: ALBUMIN/GLOBULIN RATIO 1.07 (1.00-1.93); ALKALINE PHOSPHATASE 196 U/L (45-117); ALT/SGPT 8 U/L (12-78); ANION GAP 7 MEQ/L (8-16); AST/SGOT 6 U/L (7-37); BILIRUBIN,TOTAL 0.8 MG/DL (0.2-1.0); BLOOD UREA NITROGEN 34 MG/DL (7-18); CALCIUM LEVEL 7.7 MG/DL (8.8-10.2); CARBON DIOXIDE LEVEL 33 MEQ/L (21-32); CHLORIDE LEVEL 103 MEQ/L (98-107); CPK CREATINE PHOSPHOKINASE 42 U/L (26-192); CREATININE FOR GFR 6.42 MG/DL (0.55-1.30); GAMMA GLUTAMYLTRANSPEPTIDASE 17 U/L (5-55); GLOMERULAR FILTRATION RATE 6.9 (>45); GLUCOSE, FASTING 83 MG/DL (70-100); POTASSIUM SERUM 4.1 MEQ/L (3.5-5.1); SODIUM LEVEL 143 MEQ/L (136-145); TOTAL PROTEIN 5.8 GM/DL (6.4-8.2)
== END ==
DX: M31.30 Wegener's granulomatosis without renal involvement (principal)
CPT/HCPCS: 82550

== ENCOUNTER 2018-03-25 12:13 | Emergency (ER) | payer MEDICARE, MEDICAID ==
[2018-03-25 13:01] LABS: BASO % 0.6 % (0.0-1.0); EOS # 0.3 10^3/uL (0.0-0.50); EOS % 5.7 % (0.0-3.0); HEMOGLOBIN 10.4 g/dl (12.0-15.5); IMMATURE GRANULOCYTE % 0.2 % (0-3.0); LYMPH % 20.4 % (24.0-44.0); MEAN CORPUSCULAR HEMOGLOBIN 27.5 pg (27.0-33.0); MEAN CORPUSCULAR HGB CONC 31.5 g/dl (32.0-36.5); MEAN CORPUSCULAR VOLUME 87.3 fl (80.0-96.0); MONO # 0.4 10^3/uL (0.0-0.8); MONO % 8.9 % (0.0-5.0); NEUTROPHILS % 64.2 % (36.0-66.0); RED BLOOD COUNT 3.78 10^6/uL (4.00-5.40); WHITE BLOOD COUNT 4.7 10^3/uL (4.0-10.0)
[2018-03-25 13:20] LABS: PLATELET COUNT, AUTOMATED 225 10^3/uL (150-450)
[2018-03-25 13:28] LABS: ALBUMIN 3.3 GM/DL (3.2-5.2); ALBUMIN/GLOBULIN RATIO 1.14 (1.00-1.93); ALKALINE PHOSPHATASE 204 U/L (45-117); ALT/SGPT 13 U/L (12-78); ANION GAP 7 MEQ/L (8-16); AST/SGOT 14 U/L (7-37); BILIRUBIN,DIRECT 0.1 MG/DL (0.0-0.2); BILIRUBIN,TOTAL 0.6 MG/DL (0.2-1.0); BLOOD UREA NITROGEN 20 MG/DL (7-18); CALCIUM LEVEL 8.8 MG/DL (8.8-10.2); CARBON DIOXIDE LEVEL 31 MEQ/L (21-32); CHLORIDE LEVEL 102 MEQ/L (98-107); CPK CREATINE PHOSPHOKINASE 80 U/L (26-192); FREE T4 1.15 NG/DL (0.76-1.46); GLOMERULAR FILTRATION RATE 9.6 (>45); GLUCOSE, FASTING 139 MG/DL (70-100); LIPASE 142 U/L (73-393); POTASSIUM SERUM 4.8 MEQ/L (3.5-5.1); SODIUM LEVEL 140 MEQ/L (136-145); TOTAL PROTEIN 6.2 GM/DL (6.4-8.2); TROPONIN I < 0.02 NG/ML (< 0.10)
[2018-03-25 13:34] LABS: CK-MB VALUE MASS 1.2 NG/ML (<3.6); NT-PRO BNP 16127 PG/ML (<125)
[2018-03-25 13:46] LABS: INR 0.96; PROTHROMBIN TIME 12.9 SECONDS (12.4-14.5)
[2018-03-25 13:47] LABS: PARTIAL THROMBOPLASTIN TIME 36.1 SECONDS (26.8-37.9)
== END 2018-03-25 16:39 | disposition home or self-care (01) ==
LOC: M ED 12:13
DX: S22.42XA Multiple fractures of ribs, left side, initial encounter for closed fracture (principal); X58.XXXA Exposure to other specified factors, initial encounter; Y92.89 Other specified places as the place of occurrence of the external cause; M81.0 Age-related osteoporosis without current pathological fracture; N18.6 End stage renal disease; Z99.2 Dependence on renal dialysis; J44.9 Chronic obstructive pulmonary disease, unspecified; I12.0 Hypertensive chronic kidney disease with stage 5 chronic kidney disease or end stage renal disease; Z79.899 Other long term (current) drug therapy; Z88.8 Allergy status to other drugs, medicaments and biological substances; R06.02 Shortness of breath
CPT/HCPCS: 71045

== ENCOUNTER → 2018-03-26 | Outpatient (CLI) | payer MEDICARE, MEDICAID | END | disposition home or self-care (01) | LOC: M IRPRO 09:03 | DX: T82.898A Other specified complication of vascular prosthetic devices, implants and grafts, initial encounter (principal); N18.6 End stage renal disease | CPT/HCPCS: 36901 ==

== ENCOUNTER → 2018-05-17 | Outpatient (CLI) | payer MEDICARE, MEDICAID | LOC: M SMT 10:09 | DX: J84.9 Interstitial pulmonary disease, unspecified (principal) | CPT/HCPCS: 71046 ==

== ENCOUNTER → 2018-07-23 | Outpatient (REF) | payer MEDICARE, MEDICAID, OTHER ==
[2018-07-23 10:28] LABS: BASO % 0.7 % (0.0-1.0); EOS # 0.3 10^3/uL (0.0-0.50); EOS % 6.2 % (0.0-3.0); HEMATOCRIT 34.3 % (36.0-47.0); HEMOGLOBIN 10.5 g/dl (12.0-15.5); IMMATURE GRANULOCYTE % 0.2 % (0-3.0); LYMPH # 1.4 10^3/uL (1.5-4.5); LYMPH % 31.3 % (24.0-44.0); MEAN CORPUSCULAR HEMOGLOBIN 26.9 pg (27.0-33.0); MEAN CORPUSCULAR HGB CONC 30.6 g/dl (32.0-36.5); MEAN CORPUSCULAR VOLUME 87.9 fl (80.0-96.0); MONO # 0.5 10^3/uL (0.0-0.8); MONO % 11.3 % (0.0-5.0); NEUTROPHILS # 2.2 10^3/uL (1.8-7.7); NEUTROPHILS % 50.3 % (36.0-66.0); PLATELET COUNT, AUTOMATED 100 10^3/uL (150-450); RED CELL DISTRIBUTION WIDTH 16.1 % (11.5-14.5); WHITE BLOOD COUNT 4.3 10^3/uL (4.0-10.0)
[2018-07-23 11:22] LABS: ALBUMIN 3.4 GM/DL (3.2-5.2); ALBUMIN/GLOBULIN RATIO 1.36 (1.00-1.93); ALKALINE PHOSPHATASE 197 U/L (45-117); ALT/SGPT 14 U/L (12-78); AST/SGOT 12 U/L (7-37); BILIRUBIN,DIRECT 0.1 MG/DL (0.0-0.2); BILIRUBIN,TOTAL 0.9 MG/DL (0.2-1.0); TOTAL PROTEIN 5.9 GM/DL (6.4-8.2)
== END ==
DX: M31.30 Wegener's granulomatosis without renal involvement (principal)
CPT/HCPCS: 80076

== ENCOUNTER → 2018-07-26 | Outpatient (CLI) | payer MEDICARE, MEDICAID ==
[2018-07-26 13:17] LABS: BASO % 0.6 % (0.0-1.0); EOS # 0.2 10^3/uL (0.0-0.50); EOS % 4.8 % (0.0-3.0); HEMATOCRIT 35.1 % (36.0-47.0); HEMOGLOBIN 10.7 g/dl (12.0-15.5); LYMPH # 1.2 10^3/uL (1.5-4.5); LYMPH % 24.1 % (24.0-44.0); MEAN CORPUSCULAR HGB CONC 30.5 g/dl (32.0-36.5); MEAN CORPUSCULAR VOLUME 88.4 fl (80.0-96.0); MONO # 0.6 10^3/uL (0.0-0.8); MONO % 11.9 % (0.0-5.0); NEUTROPHILS # 2.8 10^3/uL (1.8-7.7); NEUTROPHILS % 58.6 % (36.0-66.0); PLATELET COUNT, AUTOMATED 125 10^3/uL (150-450); RED BLOOD COUNT 3.97 10^6/uL (4.00-5.40); RED CELL DISTRIBUTION WIDTH 15.9 % (11.5-14.5); WHITE BLOOD COUNT 4.8 10^3/uL (4.0-10.0)
== END ==
LOC: M SMT 10:03
DX: D72.819 Decreased white blood cell count, unspecified (principal)
CPT/HCPCS: 85027

== ENCOUNTER → 2018-09-05 | Outpatient (CLI) | payer MEDICARE, MEDICAID ==
[~2018-09-05] MED LIST changes: +LIDOCAINE 2% MDV 20 ML VIAL As Ordered
== END | disposition home or self-care (01) ==
LOC: M IRPRO 06:13
DX: T82.858A Stenosis of other vascular prosthetic devices, implants and grafts, initial encounter (principal); N18.6 End stage renal disease; Z99.2 Dependence on renal dialysis
CPT/HCPCS: 36902

== ENCOUNTER → 2018-09-17 | Outpatient (CLI) | payer MEDICARE, MEDICAID ==
[2018-09-19 12:17] LABS: IMMEDIATE SPIN CROSSMATCH 1 2
== END ==
LOC: M SMT 12:01
DX: N18.9 Chronic kidney disease, unspecified (principal); D63.1 Anemia in chronic kidney disease
CPT/HCPCS: 86900

== ENCOUNTER 2018-09-19 11:48 | Outpatient (CLI) | payer MEDICARE, MEDICAID ==
[2018-09-19] MEDS: diphenhydrAMINE 25 MG CAP PO (12:13)
[2018-09-19] MEDS: ACETAMINOPHEN 325 MG TAB PO (12:13)
== END 2018-09-19 17:10 | disposition home or self-care (01) ==
LOC: M INFU 11:48
DX: N18.5 Chronic kidney disease, stage 5 (principal); D63.1 Anemia in chronic kidney disease
CPT/HCPCS: 36430

== ENCOUNTER → 2018-09-26 | Outpatient (CLI) | payer MEDICARE, MEDICAID | LOC: M RAD 10:23 | DX: J84.10 Pulmonary fibrosis, unspecified (principal); M31.30 Wegener's granulomatosis without renal involvement; R09.02 Hypoxemia | CPT/HCPCS: 71250 ==

== ENCOUNTER 2018-10-09 22:32 | Inpatient (IN) | payer MEDICARE, MEDICAID ==
[2018-10-09 23:28] LABS: BASO % 0.4 % (0.0-1.0); EOS # 0.1 10^3/uL (0.0-0.50); EOS % 1.9 % (0.0-3.0); HEMATOCRIT 33.1 % (36.0-47.0); HEMOGLOBIN 10.5 g/dl (12.0-15.5); IMMATURE GRANULOCYTE % 0.6 % (0-3.0); LYMPH # 1.9 10^3/uL (1.5-4.5); LYMPH % 28.6 % (24.0-44.0); MEAN CORPUSCULAR HEMOGLOBIN 30.6 pg (27.0-33.0); MEAN CORPUSCULAR HGB CONC 31.7 g/dl (32.0-36.5); MEAN CORPUSCULAR VOLUME 96.5 fl (80.0-96.0); MONO # 0.8 10^3/uL (0.0-0.8); MONO % 11.4 % (0.0-5.0); NEUTROPHILS # 3.9 10^3/uL (1.8-7.7); NEUTROPHILS % 57.1 % (36.0-66.0); PLATELET COUNT, AUTOMATED 168 10^3/uL (150-450); RED BLOOD COUNT 3.43 10^6/uL (4.00-5.40); WHITE BLOOD COUNT 6.8 10^3/uL (4.0-10.0)
[2018-10-09 23:32] LABS: INR 0.94; PROTHROMBIN TIME 12.7 SECONDS (12.1-14.4)
[2018-10-09 23:33] LABS: PARTIAL THROMBOPLASTIN TIME 26.7 SECONDS (25.4-37.6)
[2018-10-09 23:38] LABS: ALBUMIN 3.5 GM/DL (3.2-5.2); ALKALINE PHOSPHATASE 100 U/L (45-117); ALT/SGPT 16 U/L (12-78); ANION GAP 8 MEQ/L (8-16); AST/SGOT 17 U/L (7-37); BILIRUBIN,DIRECT 0.1 MG/DL (0.0-0.2); BILIRUBIN,TOTAL 0.7 MG/DL (0.2-1.0); BLOOD UREA NITROGEN 25 MG/DL (7-18); CALCIUM LEVEL 8.7 MG/DL (8.8-10.2); CARBON DIOXIDE LEVEL 32 MEQ/L (21-32); CHLORIDE LEVEL 102 MEQ/L (98-107); CREATININE FOR GFR 5.21 MG/DL (0.55-1.30); GLOMERULAR FILTRATION RATE 8.8 (>45); GLUCOSE, FASTING 91 MG/DL (70-100); LIPASE 169 U/L (73-393); POTASSIUM SERUM 3.5 MEQ/L (3.5-5.1); SODIUM LEVEL 142 MEQ/L (136-145); TOTAL PROTEIN 6.2 GM/DL (6.4-8.2)
[2018-10-10] MEDS ORDERED: NS 1,000 ML IV (00:26)
[2018-10-10] MEDS ORDERED: ONDANSETRON 4MG/2ML VIAL (J2405) IV (00:30)
[2018-10-10] MEDS ORDERED: ACETAMINOPHEN TAB 650MG DOSE (2X325MG) PO (00:30)
[2018-10-10] MEDS ORDERED: IPRATROPIUM 0.5MG/ALBUTEROL 2.5MG INH SOL UD 3ML (DUONEB)(J7620) NEB (02:00)
[2018-10-10] MEDS: metroNIDAZOLE 500 MG in APPROPRIATE DILUENT 1 EA IV ×3 (04:47→19:53)
[2018-10-10] MEDS: METOPROLOL 5 MG/5 ML VIAL IV ×4 (04:48→23:28)
[2018-10-10 05:22] LABS: HEMATOCRIT 29.9 % (36.0-47.0); HEMOGLOBIN 9.5 g/dl (12.0-15.5)
[2018-10-10] MEDS: LevoFLOXacin IV 500 MG in APPROPRIATE DILUENT 1 EA IV (06:03)
[2018-10-10] MEDS: methylPREDNISolone INJ 125 MG/2 ML VIAL (J2930) IV (06:04)
[2018-10-10 07:32] LABS: ALBUMIN 2.9 GM/DL (3.2-5.2); ALBUMIN/GLOBULIN RATIO 1.16 (1.00-1.93); ALKALINE PHOSPHATASE 80 U/L (45-117); ALT/SGPT 12 U/L (12-78); ANION GAP 11 MEQ/L (8-16); AST/SGOT 13 U/L (7-37); BILIRUBIN,TOTAL 0.7 MG/DL (0.2-1.0); BLOOD UREA NITROGEN 27 MG/DL (7-18); CALCIUM LEVEL 8.3 MG/DL (8.8-10.2); CARBON DIOXIDE LEVEL 30 MEQ/L (21-32); CHLORIDE LEVEL 103 MEQ/L (98-107); CREATININE FOR GFR 5.81 MG/DL (0.55-1.30); GLOMERULAR FILTRATION RATE 7.7 (>45); GLUCOSE, FASTING 76 MG/DL (70-100); MAGNESIUM LEVEL 1.9 MG/DL (1.8-2.4); POTASSIUM SERUM 3.3 MEQ/L (3.5-5.1); SODIUM LEVEL 144 MEQ/L (136-145); TOTAL PROTEIN 5.4 GM/DL (6.4-8.2)
[2018-10-10] MEDS: ALBUTEROL SULFATE 2.5 MG/0.5 ML INH NEB SOLN INH ×3 (07:44→19:46)
[2018-10-10 08:08] LABS: IRON (FE) 75 UG/DL (50-170)
[2018-10-10] MEDS: POTASSIUM CHLORIDE 10 MEQ SR TABLET PO (09:40)
[2018-10-10] MEDS: PANTOPRAZOLE 40MG INJ (PROTONIX) (C9113) IV (09:40)
[2018-10-10 11:29] LABS: HEMATOCRIT 30.3 % (36.0-47.0); HEMOGLOBIN 9.5 g/dl (12.0-15.5)
[2018-10-10 17:00] LABS: HEMATOCRIT 27.3 % (36.0-47.0); HEMOGLOBIN 8.9 g/dl (12.0-15.5)
[2018-10-10 23:27] LABS: HEMATOCRIT 25.2 % (36.0-47.0); HEMOGLOBIN 7.8 g/dl (12.0-15.5)
[2018-10-11 00:24] LABS: IMMEDIATE SPIN CROSSMATCH 1 1
[2018-10-11] MEDS: metroNIDAZOLE 500 MG in APPROPRIATE DILUENT 1 EA IV ×3 (02:57→20:43)
[2018-10-11] MEDS: METOPROLOL 5 MG/5 ML VIAL IV (02:58)
[2018-10-11 06:13] LABS: BASO % 0.6 % (0.0-1.0); EOS # 0.1 10^3/uL (0.0-0.50); EOS % 2.5 % (0.0-3.0); HEMATOCRIT 25.5 % (36.0-47.0); HEMOGLOBIN 8.1 g/dl (12.0-15.5); IMMATURE GRANULOCYTE % 0.6 % (0-3.0); LYMPH # 1.6 10^3/uL (1.5-4.5); LYMPH % 29.4 % (24.0-44.0); MEAN CORPUSCULAR HEMOGLOBIN 30.8 pg (27.0-33.0); MEAN CORPUSCULAR HGB CONC 31.8 g/dl (32.0-36.5); MONO # 0.5 10^3/uL (0.0-0.8); MONO % 9.1 % (0.0-5.0); NEUTROPHILS # 3.1 10^3/uL (1.8-7.7); NEUTROPHILS % 57.8 % (36.0-66.0); PLATELET COUNT, AUTOMATED 124 10^3/uL (150-450); RED BLOOD COUNT 2.63 10^6/uL (4.00-5.40); RED CELL DISTRIBUTION WIDTH 16.1 % (11.5-14.5); WHITE BLOOD COUNT 5.3 10^3/uL (4.0-10.0)
[2018-10-11] MEDS: methylPREDNISolone INJ 125 MG/2 ML VIAL (J2930) IV (06:14)
[2018-10-11] MEDS: PANTOPRAZOLE 40MG INJ (PROTONIX) (C9113) IV (06:14)
[2018-10-11 06:41] LABS: ANION GAP 11 MEQ/L (8-16); BLOOD UREA NITROGEN 48 MG/DL (7-18); CARBON DIOXIDE LEVEL 28 MEQ/L (21-32); CHLORIDE LEVEL 107 MEQ/L (98-107); CREATININE FOR GFR 8.01 MG/DL (0.55-1.30); GLOMERULAR FILTRATION RATE 5.3 (>45); GLUCOSE, FASTING 78 MG/DL (70-100); POTASSIUM SERUM 4.4 MEQ/L (3.5-5.1); SODIUM LEVEL 146 MEQ/L (136-145)
[2018-10-11] MEDS: ALBUTEROL SULFATE 2.5 MG/0.5 ML INH NEB SOLN INH ×4 (07:04→21:51)
[2018-10-11] MEDS: amLODIPine 5 MG TAB PO ×2 (07:42→14:33)
[2018-10-11] MEDS ORDERED: POLYVINYL ALCOHOL OPHTH SOLN 15 ML(LIQUITEARS) OU (08:30)
[2018-10-11] MEDS ORDERED: ANUSOL HC CREAM 30GM PR (08:30)
[2018-10-11] MEDS ORDERED: SOD POLYSTYRENE SULFONATE SUSP 15 GM/60 ML UD PO (08:30)
[2018-10-11] MEDS ORDERED: EMLA CREAM 5GM (LIDOCAINE/PRILOCAINE) TOP ×2 (08:30→08:49)
[2018-10-11] MEDS ORDERED: PROCHLORPERAZINE 5 MG TAB (S0183) PO (08:30)
[2018-10-11] MEDS ORDERED: NYSTATIN CREAM 15 GM EXT (08:30)
[2018-10-11] MEDS ORDERED: amLODIPine 5 MG TAB PO (09:00)
[2018-10-11] MEDS: FLUTICASONE HFA 110 MCG 12 GM INHALER (FLOVENT) INH ×2 (09:00→21:52)
[2018-10-11] MEDS ORDERED: amLODIPine 10 MG TAB PO (09:00)
[2018-10-11] MEDS: PANTOPRAZOLE 40MG TAB (PROTONIX) PO ×2 (09:00→20:43)
[2018-10-11] MEDS: HEPARIN 1,000 UNITS/ML 10ML VIAL (FOR RADIOLOGY& DIALYSIS ONLY) XX (13:15)
[2018-10-11] MEDS: LIDOCAINE 1% SDV 5 ML VIAL SQ (13:15)
[2018-10-11] MEDS: guaiFENesin ER 600 MG TAB PO ×2 (14:30→20:43)
[2018-10-11] MEDS: LACTOBACILLUS ACIDOPHILUS CAP (BACID) PO (14:31)
[2018-10-11] MEDS: cloNIDine 0.1 MG TAB PO ×2 (14:31→20:43)
[2018-10-11] MEDS: OMEGA-3 1000MG CAPSULE PO (14:32)
[2018-10-11] MEDS: LEVOTHYROXINE 112MCG TABLET (0.112MG) PO (14:32)
[2018-10-11] MEDS: TIAGABINE 4 MG PO (14:33)
[2018-10-11] MEDS: MIRTAZAPINE 15 MG TAB PO (20:43)
[2018-10-11] MEDS: CYANOCOBALAMIN 500 MCG TAB PO (20:43)
[2018-10-11] MEDS: PRAVASTATIN 20 MG TAB PO (20:43)
[2018-10-11] MEDS: CETIRIZINE (ZyrTEC) 10 MG TAB PO (20:43)
[2018-10-11] MEDS: FLUTICASONE PROP 0.05% NASAL SPRAY 16 GM (FLONASE) (20:43)
[2018-10-12] MEDS: metroNIDAZOLE 500 MG in APPROPRIATE DILUENT 1 EA IV ×2 (03:49→12:09)
[2018-10-12] MEDS: LEVOTHYROXINE 112MCG TABLET (0.112MG) PO (05:32)
[2018-10-12] MEDS: LevoFLOXacin IV 250 MG in APPROPRIATE DILUENT 1 EA IV (05:32)
[2018-10-12] MEDS: methylPREDNISolone INJ 125 MG/2 ML VIAL (J2930) IV (05:32)
[2018-10-12 05:42] LABS: HEMATOCRIT 26.3 % (36.0-47.0); HEMOGLOBIN 8.3 g/dl (12.0-15.5); MEAN CORPUSCULAR HEMOGLOBIN 30.5 pg (27.0-33.0); MEAN CORPUSCULAR HGB CONC 31.6 g/dl (32.0-36.5); MEAN CORPUSCULAR VOLUME 96.7 fl (80.0-96.0); PLATELET COUNT, AUTOMATED 115 10^3/uL (150-450); RED BLOOD COUNT 2.72 10^6/uL (4.00-5.40); RED CELL DISTRIBUTION WIDTH 15.9 % (11.5-14.5); WHITE BLOOD COUNT 5.1 10^3/uL (4.0-10.0)
[2018-10-12 05:59] LABS: ANION GAP 13 MEQ/L (8-16); BLOOD UREA NITROGEN 33 MG/DL (7-18); CALCIUM LEVEL 7.9 MG/DL (8.8-10.2); CARBON DIOXIDE LEVEL 26 MEQ/L (21-32); CHLORIDE LEVEL 101 MEQ/L (98-107); CREATININE FOR GFR 5.19 MG/DL (0.55-1.30); GLOMERULAR FILTRATION RATE 8.8 (>45); GLUCOSE, FASTING 58 MG/DL (70-100); POTASSIUM SERUM 3.9 MEQ/L (3.5-5.1); SODIUM LEVEL 140 MEQ/L (136-145)
[2018-10-12 06:46] LABS: BEDSIDE GLUCOSE 61 MG/DL (80-115)
[2018-10-12] MEDS: ALBUTEROL SULFATE 2.5 MG/0.5 ML INH NEB SOLN INH ×4 (07:06→21:03)
[2018-10-12] MEDS: FLUTICASONE HFA 110 MCG 12 GM INHALER (FLOVENT) INH ×2 (07:06→21:03)
[2018-10-12] MEDS: amLODIPine 10 MG TAB PO (08:23)
[2018-10-12] MEDS: cloNIDine 0.1 MG TAB PO ×2 (08:23→20:39)
[2018-10-12] MEDS: LACTOBACILLUS ACIDOPHILUS CAP (BACID) PO (08:23)
[2018-10-12] MEDS: TIAGABINE 4 MG PO (08:23)
[2018-10-12] MEDS: guaiFENesin ER 600 MG TAB PO ×2 (08:23→20:38)
[2018-10-12] MEDS: OMEGA-3 1000MG CAPSULE PO (08:23)
[2018-10-12] MEDS: PANTOPRAZOLE 40MG TAB (PROTONIX) PO ×2 (08:23→20:39)
[2018-10-12] MEDS: PANTOPRAZOLE 40MG INJ (PROTONIX) (C9113) IV (08:24)
[2018-10-12 10:47] LABS: BEDSIDE GLUCOSE 61 MG/DL (80-115)
[2018-10-12] MEDS: CYANOCOBALAMIN 500 MCG TAB PO (20:38)
[2018-10-12] MEDS: PRAVASTATIN 20 MG TAB PO (20:38)
[2018-10-12] MEDS: MIRTAZAPINE 15 MG TAB PO (20:39)
[2018-10-12] MEDS: CETIRIZINE (ZyrTEC) 10 MG TAB PO (20:39)
[2018-10-12] MEDS: metroNIDAZOLE (FLAGYL) 500 MG TAB PO (22:58)
[2018-10-12] MEDS: FLUTICASONE PROP 0.05% NASAL SPRAY 16 GM (FLONASE) (23:45)
[2018-10-13] MEDS: LEVOTHYROXINE 112MCG TABLET (0.112MG) PO (05:45)
[2018-10-13] MEDS: methylPREDNISolone INJ 125 MG/2 ML VIAL (J2930) IV (05:45)
[2018-10-13] MEDS: metroNIDAZOLE (FLAGYL) 500 MG TAB PO ×3 (05:45→21:40)
[2018-10-13] MEDS: DOCUSATE SODIUM 100 MG CAP PO (06:18)
[2018-10-13] MEDS: OMEGA-3 1000MG CAPSULE PO (06:18)
[2018-10-13] MEDS: CYCLOBENZAPRINE 5MG TABLET PO (06:18)
[2018-10-13] MEDS: cloNIDine 0.1 MG TAB PO ×2 (06:19→20:26)
[2018-10-13] MEDS: guaiFENesin ER 600 MG TAB PO ×2 (06:19→20:24)
[2018-10-13] MEDS: LACTOBACILLUS ACIDOPHILUS CAP (BACID) PO (06:19)
[2018-10-13] MEDS: CETIRIZINE (ZyrTEC) 10 MG TAB PO ×2 (06:20→20:25)
[2018-10-13] MEDS: PANTOPRAZOLE 40MG TAB (PROTONIX) PO ×2 (06:20→20:24)
[2018-10-13] MEDS: amLODIPine 10 MG TAB PO (06:20)
[2018-10-13] MEDS: TIAGABINE 4 MG PO (06:20)
[2018-10-13 07:16] LABS: HEMOGLOBIN 7.9 g/dl (12.0-15.5); MEAN CORPUSCULAR HEMOGLOBIN 30.2 pg (27.0-33.0); MEAN CORPUSCULAR HGB CONC 31.6 g/dl (32.0-36.5); MEAN CORPUSCULAR VOLUME 95.4 fl (80.0-96.0); PLATELET COUNT, AUTOMATED 116 10^3/uL (150-450); RED BLOOD COUNT 2.62 10^6/uL (4.00-5.40); RED CELL DISTRIBUTION WIDTH 15.6 % (11.5-14.5); WHITE BLOOD COUNT 4.4 10^3/uL (4.0-10.0)
[2018-10-13 07:40] LABS: ANION GAP 13 MEQ/L (8-16); BLOOD UREA NITROGEN 58 MG/DL (7-18); CALCIUM LEVEL 7.8 MG/DL (8.8-10.2); CARBON DIOXIDE LEVEL 26 MEQ/L (21-32); CHLORIDE LEVEL 102 MEQ/L (98-107); CREATININE FOR GFR 7.81 MG/DL (0.55-1.30); GLOMERULAR FILTRATION RATE 5.5 (>45); GLUCOSE, FASTING 93 MG/DL (70-100); POTASSIUM SERUM 3.6 MEQ/L (3.5-5.1); SODIUM LEVEL 141 MEQ/L (136-145)
[2018-10-13] MEDS: FLUTICASONE HFA 110 MCG 12 GM INHALER (FLOVENT) INH ×2 (08:06→20:52)
[2018-10-13] MEDS: ALBUTEROL SULFATE 2.5 MG/0.5 ML INH NEB SOLN INH ×4 (08:06→20:16)
[2018-10-13] MEDS ORDERED: DARBEPOETIN 100 MCG/0.5 ML *DIALYSIS* SYRINGE (J0882) IV (10:30)
[2018-10-13 13:27] LABS: IMMEDIATE SPIN CROSSMATCH 1 1
[2018-10-13] MEDS: LIDOCAINE 1% SDV 5 ML VIAL SQ (14:00)
[2018-10-13] MEDS: PRAVASTATIN 20 MG TAB PO (20:24)
[2018-10-13] MEDS: FLUTICASONE PROP 0.05% NASAL SPRAY 16 GM (FLONASE) (20:24)
[2018-10-13] MEDS: MIRTAZAPINE 15 MG TAB PO (20:24)
[2018-10-13] MEDS: CYANOCOBALAMIN 500 MCG TAB PO (20:25)
[2018-10-14] MEDS: LEVOTHYROXINE 112MCG TABLET (0.112MG) PO (05:42)
[2018-10-14] MEDS: metroNIDAZOLE (FLAGYL) 500 MG TAB PO (05:42)
[2018-10-14] MEDS: LevoFLOXacin 250 MG TABLET PO (05:42)
[2018-10-14 06:38] LABS: HEMATOCRIT 29.5 % (36.0-47.0); HEMOGLOBIN 9.7 g/dl (12.0-15.5); MEAN CORPUSCULAR HEMOGLOBIN 30.5 pg (27.0-33.0); MEAN CORPUSCULAR HGB CONC 32.9 g/dl (32.0-36.5); MEAN CORPUSCULAR VOLUME 92.8 fl (80.0-96.0); PLATELET COUNT, AUTOMATED 117 10^3/uL (150-450); RED BLOOD COUNT 3.18 10^6/uL (4.00-5.40); RED CELL DISTRIBUTION WIDTH 15.9 % (11.5-14.5); WHITE BLOOD COUNT 5.2 10^3/uL (4.0-10.0)
[2018-10-14 07:21] LABS: ANION GAP 7 MEQ/L (8-16); BLOOD UREA NITROGEN 25 MG/DL (7-18); CALCIUM LEVEL 8.3 MG/DL (8.8-10.2); CARBON DIOXIDE LEVEL 30 MEQ/L (21-32); CHLORIDE LEVEL 105 MEQ/L (98-107); CREATININE FOR GFR 5.07 MG/DL (0.55-1.30); GLUCOSE, FASTING 96 MG/DL (70-100); POTASSIUM SERUM 3.6 MEQ/L (3.5-5.1); SODIUM LEVEL 142 MEQ/L (136-145)
[2018-10-14 07:24] LABS: POS COUNT POS FLAG
[2018-10-14] MEDS: ALBUTEROL SULFATE 2.5 MG/0.5 ML INH NEB SOLN INH (08:14)
[2018-10-14] MEDS: FLUTICASONE HFA 110 MCG 12 GM INHALER (FLOVENT) INH (08:15)
[2018-10-14] MEDS: predniSONE 10 MG TAB PO (08:31)
[2018-10-14] MEDS: guaiFENesin ER 600 MG TAB PO (08:31)
[2018-10-14] MEDS: TIAGABINE 4 MG PO (08:32)
[2018-10-14] MEDS: amLODIPine 10 MG TAB PO (08:32)
[2018-10-14] MEDS: PANTOPRAZOLE 40MG TAB (PROTONIX) PO (08:32)
[2018-10-14] MEDS: cloNIDine 0.1 MG TAB PO (08:32)
[2018-10-14] MEDS: LACTOBACILLUS ACIDOPHILUS CAP (BACID) PO (08:32)
[2018-10-14] MEDS: OMEGA-3 1000MG CAPSULE PO (08:32)
[2018-10-26] MEDS ORDERED: predniSONE 5 MG TAB PO (09:00)
== END 2018-10-14 12:42 | DRG 377 ==
LOC: M ED 22:32 → M MSPAV 10-12 17:01 → M ED INP 10-10 00:26 → M PCU 10-10 04:25
PROC: 30233N1 Transfusion of Nonautologous Red Blood Cells into Peripheral Vein, Percutaneous Approach (ICD-10-PCS; principal; 2018-10-11)
PROC: 5A1D70Z Performance of Urinary Filtration, Intermittent, Less than 6 Hours Per Day (ICD-10-PCS; 2018-10-11)
DX: K62.5 Hemorrhage of anus and rectum (principal); K63.1 Perforation of intestine (nontraumatic); N18.6 End stage renal disease; I50.32 Chronic diastolic (congestive) heart failure; I47.1 Supraventricular tachycardia; M31.0 Hypersensitivity angiitis; D62 Acute posthemorrhagic anemia; N25.81 Secondary hyperparathyroidism of renal origin; M31.30 Wegener's granulomatosis without renal involvement; K21.9 Gastro-esophageal reflux disease without esophagitis; J44.9 Chronic obstructive pulmonary disease, unspecified; G47.33 Obstructive sleep apnea (adult) (pediatric); Z91.19 Patient's noncompliance with other medical treatment and regimen; E03.9 Hypothyroidism, unspecified; Z79.899 Other long term (current) drug therapy; Z88.8 Allergy status to other drugs, medicaments and biological substances; M79.2 Neuralgia and neuritis, unspecified; E55.9 Vitamin D deficiency, unspecified; F40.240 Claustrophobia; Z87.891 Personal history of nicotine dependence; E78.5 Hyperlipidemia, unspecified

== ENCOUNTER → 2018-11-07 | Outpatient (CLI) | payer MEDICARE, MEDICAID ==
[~2018-11-07] MED LIST changes: +/ONDA4TA SL; +ACET-683 PO; +ACET1TAB55 PO; +ALBU17IN INH; +ALBU83IN INH; +ALL10TAB28 PO; +AMLO10TA5; +AMLO5TAB6 PO; +AMOX875T PO; +ANUS2.5C2 PR; +ARTI99.0 OU; +ARTIFICAL TEARS OU; +AYR0.65S; +AZEL1SPR3; +B-12100010 PO; +BACIDCA PO; +BACITAB PO; +BACT400T PO; +BENZ-18 PO; +CALC20SPR; +CALC25TA PO; +CALCTAB68 PO; +CALTCHW5 PO; +CEFD1CAP8 PO; +CEFD300CAP PO; +CELE20TA PO; +CETI10TA PO; +CLON-412; +CLON-412 PO; +COMP1TAB PO; +CYCL1CAP2 PO; +CYCL5TAB PO; +DEXT75EL PO; +DEXTPOW57 IV; +DICY20TA PO; +DICY20TA11 PO; +DOCU100C16 PO; +DRIS50003 PO; +EPOG1000 IV; +FERR325T3 PO; +FIBE625T PO; +FIBE625T4; +FISH1000 PO; +FLAG500T PO; +FLON0.054; +FLON1SPR; +FLOV110A IN; +FLOVENT INH; +FLUT11IN INH; +GABI4TAB PO; +GAS-125C PO; +GAS1CHW PO; +GLUC1INJ2 SC; +GLUC4CHW19 PO; +GLYC3350 PO; +GUAI100S29 PO; +GUAI1SYP8 PO; +GUAI1TAB PO; +HYDR-3713 PO; +HYDR-3911; +HYDR50TA PO; +IMOD2CAP PO; +IMOD2TAB16 PO; +INSUH10VL SC; +IPRA0.00 NEB; -ISOVUE-300 61% 50ML VIAL (Q9967) As Ordered; +LEVA250T13 PO; +LEVO100T5 PO; +LEVO125T41 PO; +LIDO1CRE14 TOP; -LIDOCAINE 2% MDV 20 ML VIAL As Ordered; +LISI40TAB PO; +LOSA100T50 PO; +LOSA50TA88 PO; +MEGE400S9 PO; +METO25TAB PO; +METO50TA2 PO; +METO50TA7 PO; +METR-201 PO; +MIAC200S2; -MIDAZOLAM INJ 2 MG/2 ML VIAL (J2250) As Ordered; +MIRA3350 PO; +MIRT15TA3; +MUCI600T37 PO; +NEUR600T PO; +NORC1TAB4 PO; +NORCOTAB PO; +NYST-6 TOP; +NYST10CR EXT; +NYST50SS SS; +OCEA0.654; +ONDA4TAB5 PO; +OXYC1TAB23 PO; +PANT40TA3 PO; +PEG1POW PO; +PERC5TAB12 PO; +PERCOCET PO; +PHEN1SUP6 IV; +POLY1.4S OU; +PRAV40TA PO; +PRAV40TA2 PO; +PRED10TA2 PO; +PRED20TA PO; +PRED50TA PO; +PRED5TA PO; +PRIN5TAB PO; +PROAAER IN; +PROAAER10 INH; +PROB1TAB PO; +PROBCAP4 PO; +PROC10TA4 PO; +PROC5TA PO; +PROT1TAB2 PO; +RA M10TA; +RA M10TA PO; +REFROIN OU; +REME15TA PO; +RENATAB5 PO; +RENV2TAB PO; +ROBISYP5 PO; +SALI0.9I2 IV; +SIME80TA PO; +SODI15SS PO; +SOOT1DRO OU; +SPIR-10 PO; +SPIR25TA2 PO; +STOO100C PO; +SULF1TAB72 PO; +SULFAMETHOXAZOLE-TMP; +SYNT100T PO; +SYNT112T2 PO; +SYNT125T PO; +SYSTSOL14; +SYSTSOL14 OU; +TUSS100S30 PO; +TYLE167L PO; +TYLE325T5 PO; +ULTR50TA8 PO; +VANC12CA PO; +VERA120T2 PO; +VERA1TAB10 PO; +VITA10002 PO; +VITA100072 PO; +ZOFR4SOL IV; +ZOFR4TAB16 PO; +ZYRT10CA5 PO; +[UNRECOGNIZED DRUG - CODE]; +[UNRECOGNIZED DRUG - CODE] PO; +compazine PO; +cytoxan PO; -fentaNYL 100 MCG/2 ML INJECTION (J3010) As Ordered; +immodium
--- NOTE | 2018-11-07 13:04 | REPMRS ---
Patient History The patient states she has not had a clinical breast exam in over a year. Patient is postmenopausal and is nulliparous. Family history of breast cancer at age 65 in mother, breast cancer at age 65 in paternal aunt. Took hormonal contraceptives for 1 year. Took progesterone for 10 years. Digital Woman Screen Mammo: November 07, 2018 - Exam #: [id number] Bilateral CC and MLO view(s) were taken. Technologist: Devika Lorenzo, Technologist Prior study comparison: May 01, 2017, digital woman screen mammo performed at [facility]. November 11, 2015, digital woman screen mammo performed at [facility]. August 20, 2014, bilateral bilat screen digital mammo, performed at [facility] ([facility] FINDINGS: The breast tissue is heterogeneously dense. This may lower the sensitivity of mammography. There is a moderate amount of heterogeneously dense fibroglandular tissue which is fairly symmetric. There is no interval development of dominant mass, architectural distortion, or clustered microcalcification typical of malignancy. There has been no change in the appearance of the mammogram from the prior studies. 3-D tomosynthesis shows no additional findings. Assessment: BI-RADS/ACR category 1 mammogram. Negative. Recommendation Routine screening mammogram of both breasts in 1 year (for women over age 40). This patient's Lifetime Breast Cancer RIsk is estimated at 9.9 %. This mammogram was interpreted with the aid of an FDA-approved computer-aided dectection system. Electronically Signed By: Daniel Alcala MD 11/07/18 [id number]
== END ==
LOC: M WHC 10:05
PROVIDERS: ATTEND Nurse Practitioner Adult Health
DX: Z12.31 Encounter for screening mammogram for malignant neoplasm of breast (principal); Z78.0 Asymptomatic menopausal state; Z80.3 Family history of malignant neoplasm of breast; Z92.0 Personal history of contraception; Z92.29 Personal history of other drug therapy

== ENCOUNTER 2018-12-02 10:52 | Outpatient (CLI) | payer MEDICARE, MEDICAID ==
[~2018-12-02] VITALS: Ht 165.1 cm; Wt 66.4 kg
[~2018-12-02 10:52] MED LIST changes: +diphenhydrAMINE 25 MG CAP PO SCH
[2018-12-02 11:00] VITALS: BP 152/70
[2018-12-02 13:45] VITALS: BP 118/56
[2018-12-02 14:55] VITALS: BP 117/53
[2018-12-02 15:26] VITALS: BP 118/56
[2018-12-02 16:00] VITALS: BP 121/62
== END 2018-12-02 16:05 | disposition home or self-care (01) ==
LOC: M INFU 10:52
PROVIDERS: ATTEND Internal Medicine Nephrology
DX: N18.6 End stage renal disease (principal); D63.1 Anemia in chronic kidney disease
CPT/HCPCS: 36430; 86850; 86900; 86901; 86920; P9016

== ENCOUNTER → 2018-12-19 | Outpatient (CLI) | payer MEDICARE, MEDICAID ==
[~2018-12-19] MED LIST changes: +FLUT22IN INH; +HEPARIN 1,000 UNITS/ML 10ML VIAL (FOR RADIOLOGY& DIALYSIS ONLY) As Ordered ONE; +ISOVUE-300 61% 50ML VIAL (Q9967) As Ordered ONE; +LIDOCAINE 2% MDV 20 ML VIAL As Ordered ONE; +MIDAZOLAM INJ 2 MG/2 ML VIAL (J2250) As Ordered ONE; -diphenhydrAMINE 25 MG CAP PO SCH; +fentaNYL 100 MCG/2 ML INJECTION (J3010) As Ordered ONE
--- NOTE | 2018-12-19 16:37 | ROOPDOC ---
[facility] Report Of Operation Report of Operation DATE OF PROCEDURE: 12/19/18 PREPROCEDURE DIAGNOSES: End-stage renal disease on hemodialysis with increased bleeding after dialysis and difficulty with cannulation. POSTPROCEDURE DIAGNOSES: Same. PROCEDURE: 1. Ultrasound-guided access right basilic vein fistula 2. Right upper extremity fistulogram and central venogram SURGEON: Carey Alejo MD ANESTHESIA: Lidocaine 3 mL subcutaneous for local anesthesia. Conscious sedation was also administered by Dr. Alejo, and the patient was supervised by Dr. Alejo throughout the procedure as well as independently monitored by a registered nurse assigned to the Department of radiology using automated blood pressure, EKG and pulse oximetry the detailed record of conscious sedation is permanently stored in the hospital information system. The following is the conscious sedation record including start and end times: Minutes given 0.5 mg Versed IV and 50 g of fentanyl IV; sedation start time 1502 sedation and time 1519. The patient tolerated the procedure well and had no adverse reactions to sedation. She was monitored post procedure appropriately and discharged in stable condition. INDICATION FOR PROCEDURE: Ms. Jim is a very pleasant 67-year-old female with end-stage renal disease, currently dialyzing through her right upper extremity brachial, basilic AV fistula. This fistula was created about 4 years ago, and it appears that it was not transposed, but it was superficialized. She says that it has been working well, but there has been some increased difficulty in cannulation of the vein and some increased bleeding after the dialysis access was also noted. On exam, the fistula has a great thrill with minimal pulsatility and we discussed there may possibly be a more proximal stenosis that is leading to increased postprocedure bleeding, most likely due to difficulties with access is due to the actual location of the vein. Without transposition, it is a little bit difficult to get to, but at least the patient is thin and so far it has worked okay. We discussed the risks, benefits and alternatives to a fistulogram and potential intervention and the patient is agreeable to proceed. Informed consent was obtained. INTERPRETATION: 1. With ultrasound, I was able to visualize the AV anastomosis and it was widely patent. I was also able to visualize the basilic vein in the distal upper arm and it is widely patent. There is a stent in the basilic vein that is patent, and located in the area of frequent dialysis access. 2. Fistulogram and central venogram revealed excellent outflow from the fistula through the central system with no significant stenosis noted. PROCEDURE NOTE: The patient was brought to the angiographic suite in stable condition and placed supine on the fluoroscopic table. Her right upper extremity was prepped and draped in a sterile fashion. A timeout was performed. I utilized the ultrasound to examine the vein in the upper extremity prior to access. It was at this point that I noticed she had a stent in the basilic vein just proximal to the AV anastomosis and right in the area or the nurses access her for dialysis. More proximally, there were a few areas that looked slightly narrow, but no tight stricture was noted. I utilized the ultrasound to identify the area of the vein just proximal to the stent and anesthetized the skin with 3 mL of local anesthesia. I then access the vein with a microneedle under ultrasound guidance just proximal to the stent and has to wire through this access and placed a micro-sheath into the vein. The patient was very nervous, so once access was obtained, I did give her a small amount of sedation through this access. Following this, the sheath was flushed and a contrast injection was performed. There was excellent flow through the basilic vein into the axillary vein and the central system. No stenosis was noted. This concluded our procedure. The sheath was removed and pressure was held for 5 minutes for good hemostasis and a sterile dressing was applied. The patient tolerated the procedure well. ESTIMATED BLOOD LOSS: Approximately 2 mL. COMPLICATIONS: None. REMARKS: It is okay to use the fistula for dialysis. I believe the difficulty with cannulation is related to navigating the needles through the struts in the stent. The patient says some of the nurses seem to have more luck with this than others at her dialysis center. I believe the increased bleeding that she experiences sometimes after dialysis is also related to the stent. Normally, the vein can constrict somewhat with gentle pressure allowing a more rapid closure of the venotomy after access, but this is somewhat prevented with the stent present because it holds the vein in an expanded position. For now, the fistula is working adequately. If these difficulties become intolerable, we can consider placing a new access for the patient. She has been counseled about this and is agreeable. CAREY ALEJO MD Dec 19, 2018 16:37
== END | disposition home or self-care (01) ==
LOC: M IRPRO 13:25
PROVIDERS: ATTEND Surgery Vascular Surgery
DX: N18.6 End stage renal disease (principal); Z99.2 Dependence on renal dialysis; R45.0 Nervousness; Z95.828 Presence of other vascular implants and grafts
CPT/HCPCS: 36901; 99152; C1894; J2250; J3010; Q9967

== ENCOUNTER 2018-12-24 05:57 | Day surgery (SDC) | payer MEDICARE, MEDICAID ==
[~2018-12-24] VITALS: Ht 167.6 cm; Wt 64.9 kg
[~2018-12-24 05:57] MED LIST changes: -HEPARIN 1,000 UNITS/ML 10ML VIAL (FOR RADIOLOGY& DIALYSIS ONLY) As Ordered ONE; -ISOVUE-300 61% 50ML VIAL (Q9967) As Ordered ONE; -LIDOCAINE 2% MDV 20 ML VIAL As Ordered ONE; -MIDAZOLAM INJ 2 MG/2 ML VIAL (J2250) As Ordered ONE; -fentaNYL 100 MCG/2 ML INJECTION (J3010) As Ordered ONE
[2018-12-24] MEDS ORDERED: LIDOCAINE 1% MDV 20ML VIAL SQ PRN (06:00)
[2018-12-24] MEDS ORDERED: LR 1,000 ML IV ONE (06:00)
[2018-12-24] MEDS ORDERED: METOPROLOL TART 25 MG TABLET As Ordered ONE (07:17)
[2018-12-24] MEDS ORDERED: LIDOCAINE 2% INJ 100 MG/5 ML SDV (FOR ANES.) As Ordered ONE (07:18)
[2018-12-24] MEDS ORDERED: PROPOFOL 200 MG/20 ML VIAL As Ordered ONE ×2 (07:18→08:43)
[2018-12-24 07:20] VITALS: BP 155/69
[2018-12-24] MEDS ORDERED: METOPROLOL TART 50 MG TAB PO ONE (07:30)
[2018-12-24] MEDS ORDERED: fentaNYL 100 MCG/2 ML INJECTION (J3010) As Ordered ONE (08:06)
[2018-12-24] MEDS ORDERED: ePHEDrine SULFATE 25 MG/5 ML(5MG/ML) SYRINGE As Ordered ONE (08:23)
[2018-12-24 09:30] VITALS: BP 155/72
--- NOTE | 2018-12-24 09:37 | ROOR ---
Patient Name: Rocío Jim Procedure Date: 12/24/2018 7:45 AM Date of : 1950 Age: 68 Room: Main OR Gender: Female Note Status: Finalized Procedure: Colonoscopy Indications: Rectal bleeding, Recent rectal perforation Providers: Sameer Pizano MD Referring MD: 1. No Referring Physician 1. No Referring Physician, Admin. Requesting Provider: Medicines: Monitored Anesthesia Care Complications: No immediate complications. Procedure: Pre-Anesthesia Assessment: - Prior to the procedure, a History and Physical was performed, and patient medications and allergies were reviewed. The patient is competent. The risks and benefits of the procedure and the sedation options and risks were discussed with the patient. All questions were answered and informed consent was obtained. Patient identification and proposed procedure were verified by the physician, the nurse and the block trader in the procedure room. Mental Status Examination: alert and oriented. CV Examination: regular rate and rhythm. Prophylactic Antibiotics: The patient does not require prophylactic antibiotics. Prior Anticoagulants: The patient has taken no previous anticoagulant or antiplatelet agents. ASA Grade Assessment: III - A patient with severe systemic disease. After reviewing the risks and benefits, the patient was deemed in satisfactory condition to undergo the procedure. The anesthesia plan was to use monitored anesthesia care (MAC). Immediately prior to administration of medications, the patient was re-assessed for adequacy to receive sedatives. The heart rate, respiratory rate, oxygen saturations, blood pressure, adequacy of pulmonary ventilation, and response to care were monitored throughout the procedure. The physical status of the patient was re-assessed after the procedure. The Colonoscope was introduced through the anus and advanced to the terminal ileum. The colonoscopy was performed without difficulty. The patient tolerated the procedure well. The quality of the bowel preparation was excellent. Findings: The perianal and digital rectal examinations were normal. The terminal ileum appeared normal. A 6 mm polyp was found in the cecum. The polyp was semi-pedunculated. The polyp was removed with a hot snare. Resection and retrieval were complete. Two sessile polyps were found from 60 to 70 cm proximal to the anus. The polyps were 3 to 4 mm in size. These polyps were removed with a jumbo cold forceps. Resection and retrieval were complete. A few small-mouthed diverticula were found in the sigmoid colon. Impression: - The examined portion of the ileum was normal. - One 6 mm polyp in the cecum, removed with a hot snare. Resected and retrieved. - Two 3 to 4 mm polyps from 60 to 70 cm proximal to the anus, removed with a jumbo cold forceps. Resected and retrieved. - Diverticulosis in the sigmoid colon. Recommendation: - Discharge patient to home. - Resume previous diet. - Continue present medications. - Await pathology results. - Telephone endoscopist for pathology results in 2 weeks. Attending Participation: I personally performed the entire procedure. Sameer Pizano MD Sameer Pizano MD 12/24/2018 9:37:04 AM This report has been signed electronically. Number of Addenda: 0 Note Initiated On: 12/24/2018 6:12 AM Estimated Blood Loss: Estimated blood loss was minimal.
== END 2018-12-24 09:42 | disposition home or self-care (01) ==
LOC: M SDC 05:57
PROVIDERS: ATTEND Surgery
DX: D12.0 Benign neoplasm of cecum (principal); D12.6 Benign neoplasm of colon, unspecified; K57.30 Diverticulosis of large intestine without perforation or abscess without bleeding; K62.5 Hemorrhage of anus and rectum; I13.11 Hypertensive heart and chronic kidney disease without heart failure, with stage 5 chronic kidney disease, or end stage renal disease; I47.1 Supraventricular tachycardia; I50.32 Chronic diastolic (congestive) heart failure; N18.6 End stage renal disease; E03.9 Hypothyroidism, unspecified; E78.00 Pure hypercholesterolemia, unspecified; J44.9 Chronic obstructive pulmonary disease, unspecified; K21.9 Gastro-esophageal reflux disease without esophagitis; K44.9 Diaphragmatic hernia without obstruction or gangrene; F41.9 Anxiety disorder, unspecified; F32.9 Major depressive disorder, single episode, unspecified; R51 Headache; G47.30 Sleep apnea, unspecified; J45.909 Unspecified asthma, uncomplicated; R91.1 Solitary pulmonary nodule; R06.83 Snoring; D50.9 Iron deficiency anemia, unspecified; R53.1 Weakness; M81.0 Age-related osteoporosis without current pathological fracture; E55.9 Vitamin D deficiency, unspecified; H26.9 Unspecified cataract; Z88.8 Allergy status to other drugs, medicaments and biological substances; Z79.899 Other long term (current) drug therapy; Z86.19 Personal history of other infectious and parasitic diseases; Z90.710 Acquired absence of both cervix and uterus; Z87.39 Personal history of other diseases of the musculoskeletal system and connective tissue; Z99.2 Dependence on renal dialysis
CPT/HCPCS: 36415; 45380; 45385; 84132; 88305; J3010

== ENCOUNTER 2018-12-31 13:53 | Inpatient (IN) | payer MEDICARE, MEDICAID ==
[~2018-12-31] VITALS: Ht 167.6 cm; Wt 58.7 kg
[2018-12-31] VITALS (13 sets, daily range): BP systolic 110–137; BP diastolic 53–84
[~2018-12-31 13:53] MED LIST changes: -AYR0.65S; +AYR0.65S NARES; +NYST10CR TOP
[2018-12-31] MEDS ORDERED: PANTOPRAZOLE 40MG INJ (PROTONIX) (C9113) IV ONE (14:15)
[2018-12-31] MEDS ORDERED: NS 500 ML IV ONE ×2 (14:15→14:45)
[2018-12-31 14:34] LABS: BASO % 0.5 % (0.0-1.0); EOS # 0.2 10^3/uL (0.0-0.50); EOS % 2.7 % (0.0-3.0); HEMATOCRIT 44.6 % (36.0-47.0); HEMOGLOBIN 14.1 g/dl (12.0-15.5); LYMPH # 1.9 10^3/uL (1.5-4.5); LYMPH % 26.5 % (24.0-44.0); MEAN CORPUSCULAR HEMOGLOBIN 29.9 pg (27.0-33.0); MEAN CORPUSCULAR HGB CONC 31.6 g/dl (32.0-36.5); MEAN CORPUSCULAR VOLUME 94.7 fl (80.0-96.0); MONO # 0.9 10^3/uL (0.0-0.8); MONO % 12.2 % (0.0-5.0); NEUTROPHILS # 4.2 10^3/uL (1.8-7.7); NEUTROPHILS % 57.8 % (36.0-66.0); PLATELET COUNT, AUTOMATED 157 10^3/uL (150-450); RED BLOOD COUNT 4.71 10^6/uL (4.00-5.40); WHITE BLOOD COUNT 7.3 10^3/uL (4.0-10.0)
[2018-12-31] MEDS ORDERED: GUAI1SYP8 PO (14:36)
[2018-12-31] MEDS ORDERED: MIRA3350 PO (14:36)
[2018-12-31] MEDS ORDERED: CLON-412 PO (14:45)
[2018-12-31 14:47] LABS: INR 0.93; PROTHROMBIN TIME 12.6 SECONDS (12.1-14.4)
[2018-12-31 14:48] LABS: PARTIAL THROMBOPLASTIN TIME 32.2 SECONDS (25.4-37.6)
[2018-12-31 14:54] LABS: ALBUMIN 3.4 GM/DL (3.2-5.2); ALT/SGPT 16 U/L (12-78); BILIRUBIN,DIRECT < 0.1 MG/DL (0.0-0.2); BILIRUBIN,TOTAL 0.9 MG/DL (0.2-1.0); BLOOD UREA NITROGEN 44 MG/DL (7-18); CALCIUM LEVEL 8.5 MG/DL (8.8-10.2); CARBON DIOXIDE LEVEL 26 MEQ/L (21-32); CHLORIDE LEVEL 105 MEQ/L (98-107); CREATININE FOR GFR 8.42 MG/DL (0.55-1.30); GLUCOSE, FASTING 107 MG/DL (70-100); LIPASE 225 U/L (73-393); POTASSIUM SERUM 4.4 MEQ/L (3.5-5.1); SODIUM LEVEL 141 MEQ/L (136-145); TOTAL PROTEIN 5.9 GM/DL (6.4-8.2)
--- NOTE | 2018-12-31 15:31 | REP ---
CT ABDOMEN AND PELVIS WITHOUT CONTRAST: 12/31/2018. Comparison: 10/11/2018. Clinical history: Low abdominal cramping, GI bleeding. Had an episode of GI bleeding 10/10/2018 with some free air from presumed rectal perforation. Technique: Scanning through the abdomen and pelvis without oral or IV contrast and with coronal and sagittal reconstructions provided. There has been prior focal lumbar fusion with pedicle screws from T11-T12 through L4. Compression fractures of L2 seen with retropulsed fragment unchanged. Kyphoplasty cement at that level. The lung bases showed no effusion, infiltrate, nodule or mass. Heart not enlarged. No pericardial thickening or effusion. Small hiatal hernia suspected. Some calcifications aorta without aneurysm. Liver is borderline in size with right hepatic lobe 18 cm in vertical diameter. Left hepatic lobe not enlarged. There is no intrahepatic biliary dilatation. Appearance of liver unchanged. There is no splenomegaly or focal splenic lesion. Stomach filled with retained food. No evidence of obstruction. Small bowel loops are fluid-filled but not abnormally dilated. The colon with the mixed stool, gas, and fluid but no evidence of colitis or diverticulitis in the abdomen proper. No periaortic or retroperitoneal or mesenteric pathologic sized lymph nodes. Gallbladder shows no calcified stone or mass. The pancreas without mass, ductal dilatation, peripancreatic adenopathy or fluid. Adrenal glands normal. Kidneys are atrophic bilaterally as before. Lung window review of all CT slices abdomen and pelvis shows no perforation or free air. The bone windows show no change from the previous CT in September with no new compression deformity or destructive lesion. Gaines rods and pedicle screws unchanged without hardware failure. CT pelvis: Bones demineralized. The sacrum, pelvis and hips show some degenerative change but no destructive lesion or fracture. Uterus absent. The vaginal cuff intact. Bladder shows no mass or wall thickening. There is no renal, ureteral or bladder stone evident. There are a few pelvic phleboliths, but these are unchanged. Small bowel loops fluid-filled but not abnormally dilated. There are no inflammatory changes about the cecum. The appendix is absent. I see no ventral or inguinal hernia nor pathologic sized inguinal adenopathy. The distal left colon, sigmoid and rectum are without acute inflammatory changes, mass or stricture. Impression: 1. No CT evidence of mass, diverticulitis or colitis, ascites, perforation or free air in the abdomen or pelvis. 2. Fluid-filled colon and small bowel loops. This may reflect some gastroenteritis and/or ileus or both. 3. Solid organs in the upper abdomen including the liver, spleen and adrenal glands as well as pancreas were unremarkable. 4. The kidneys do show bilateral atrophy but no hydronephrosis or stone. Pancreas grossly intact. Nothing acute. Electronically Signed by Fritz Trinidad MD 12/31/2018 08:46 P
[2018-12-31] MEDS ORDERED: NS 1,000 ML IV ONE (16:15)
[2018-12-31] MEDS ORDERED: NOREPINEPHRINE BITARTRATE 8 MG in D5W 492 ML IV SCH (16:33)
[2018-12-31] MEDS ORDERED: POLYVINYL ALCOHOL OPHTH SOLN 15 ML(LIQUITEARS) OU PRN (17:30)
[2018-12-31] MEDS: PANTOPRAZOLE SODIUM 40 MG in D5W 50 ML IV SCH ×3 (17:37→20:19)
--- NOTE | 2018-12-31 17:58 | REP ---
Portable chest, single AP sitting view, 05:40 p.m.: Comparison is 05/17/2018. There is a left IJ central venous catheter with the tip in satisfactory location at the confluence of the superior vena cava and right atrium. There is no pneumothorax or hemothorax. The patient is rotated. There are bilateral multiple rib fractures that appear unchanged from the prior study. Cardiac size is normal. The lon, mediastinum, skeletal structures otherwise are unremarkable for positioning. There are stabilization rods in the lumbar spine. Electronically Signed by Karan Mclain MD 12/31/2018 05:50 P
--- NOTE | 2018-12-31 18:02 | CR.PDOC ---
Subjective General Date/Time Seen The patient was seen on 12/31/18 at 18:01. Subject Chief Complaint/History The patient is a 68-year-old female admitted with a reason for visit of Hypotension,Lower Gi Bleeding. Current Medications Current Medications Current Medications Albuterol Sulfate (Proventil Neb) 2.5 mg RQID INH ; Start 12/31/18 at 20:00 Artificial Tears ([place] Tears) 1 drop Q2H PRN OU DRY EYES; Start 12/31/18 at 17:30 Fluticasone Propionate (Flonase 0.05% Nasal [place]) 2 spray DAILY NA ; Start 01/01/19 at 09:00 Home Med (Med Rec Complete!) ASDIRECTED XX ; Start 12/31/18 at 15:00; Stop 12/31/18 at 15:03; Status DC Levothyroxine Sodium (Synthroid) 56 mcg DAILY IV ; Start 01/01/19 at 09:00 Levothyroxine Sodium (Synthroid) 112 mcg DAILY@0600 PO ; Start 01/01/19 at 06:00; Stop 01/01/19 at 06:00; Status DC Norepinephrine Bitartrate 8 mg/ Dextrose 500 ml @ 30 mls/hr [id number] IV Last administered on 12/31/18at 16:47; Start 12/31/18 at 16:33 Pantoprazole Sodium 40 mg/ Dextrose 50 ml @ 10 mls/hr Q5H IV Last administered on 12/31/18at 17:37; Start 12/31/18 at 17:15 Sodium Chloride 1,000 ml @ 100 mls/hr Q10H IV ; Start 12/31/18 at 17:12 Allergies Coded Allergies: Butalbital (Verified Adverse Reaction, Unknown, HYPER AWAKEFULNESS, 12/31/18) VITAL SIGNS VITAL SIGNS Vital Signs Date Time Temp Pulse Resp B/P (MAP) Pulse Ox O2 Delivery O2 Flow Rate FiO2 12/31/18 18:00 87 20 12/31/18 17:50 99.0 87 100 12/31/18 17:45 108/55 (72) 12/31/18 17:35 81 100 12/31/18 17:30 128/60 (82) 12/31/18 17:29 132/58 (82) 12/31/18 17:20 79 100 12/31/18 17:15 122/58 (79) 12/31/18 17:10 117/54 (75) 12/31/18 17:05 78 100 12/31/18 16:50 75 100 12/31/18 16:49 83/48 (60) 12/31/18 16:47 74 60/32 12/31/18 16:38 80 60/32 (41) 98 12/31/18 16:36 71/32 (45) 12/31/18 16:31 78/39 (52) 12/31/18 16:30 88/45 (59) 12/31/18 16:25 91/42 (58) 12/31/18 16:23 91 98 12/31/18 16:15 105/57 (73) 12/31/18 16:08 91 104/56 (72) 99 12/31/18 16:05 84/52 (63) 12/31/18 15:53 84 99 12/31/18 15:45 120/56 (77) 12/31/18 15:38 90 99 12/31/18 15:23 80 99 12/31/18 15:15 139/61 (87) 12/31/18 15:08 86 99 12/31/18 14:53 89 98 12/31/18 14:45 154/76 (102) 12/31/18 14:42 112/56 (74) 12/31/18 14:39 113/64 (80) 12/31/18 14:38 82 96 12/31/18 14:30 112/56 (74) 12/31/18 14:23 89 97 12/31/18 14:15 147/67 (93) 12/31/18 14:10 98.0 91 22 162/74 (103) 98 Room Air 12/31/18 14:08 89 98 12/31/18 14:00 162/74 (103) Laboratory Tests 12/31/18 14:19: White Blood Count 7.3, Red Blood Count 4.71, Hemoglobin 14.1, Hematocrit 44.6, Mean Corpuscular Volume 94.7, Mean Corpuscular Hemoglobin 29.9, Mean Corpuscular Hemoglobin Concent 31.6L, Red Cell Distribution Width 14.6H, Platelet Count 157, Neutrophils (%) (Auto) 57.8, Lymphocytes (%) (Auto) 26.5, Monocytes (%) (Auto) 12.2H, Eosinophils (%) (Auto) 2.7, Basophils (%) (Auto) 0.5, Neutrophils # (Auto) 4.2, Lymphocytes # (Auto) 1.9, Monocytes # (Auto) 0.9H, Eosinophils # (Auto) 0.2, Basophils # (Auto) 0.0, Immature Granulocyte % (Auto) 0.3, Nucleated Red Blood Cells % (auto) 0.0, Prothrombin Time 12.6, Prothromb Time International Ratio 0.93, Activated Partial Thromboplast Time 32.2, Sodium Level 141, Potassium Level 4.4, Chloride Level 105, Carbon Dioxide Level 26, Anion Gap 10, Blood Urea Nitrogen 44H, Creatinine 8.42*H, Glomerular Filtration Rate 5.0L, Fasting Glucose 107H, Calcium Level 8.5L, Aspartate Amino Transf (AST/SGOT) 22, Alanine Aminotransferase (ALT/SGPT) 16, Alkaline Phosphatase 105, Total Bilirubin 0.9, Direct Bilirubin < 0.1, Total Protein 5.9L, Albumin 3.4, Albumin/Globulin Ratio 1.36, Lipase 225 Current Medications Medications (Trade) Dose Ordered Sig/Stephany Route PRN Reason Start Time Stop Time Status Last Admin Dose Admin Norepinephrine Bitartrate 8 mg/ Dextrose 500 ml @ 30 mls/hr [id number] IV 12/31/18 16:33 12/31/18 16:47 30 MLS/HR Pantoprazole Sodium 40 mg/ Dextrose 50 ml @ 10 mls/hr Q5H IV 12/31/18 17:15 12/31/18 17:37 10 MLS/HR Laboratory Tests 12/31/18 14:19 Red Blood Count 4.71, Mean Corpuscular Volume 94.7, Mean Corpuscular Hemoglobin 29.9, Mean Corpuscular Hemoglobin Concent 31.6 L, Red Cell Distribution Width 14.6 H, Neutrophils (%) (Auto) 57.8, Lymphocytes (%) (Auto) 26.5, Monocytes (%) (Auto) 12.2 H, Eosinophils (%) (Auto) 2.7, Basophils (%) (Auto) 0.5, Neutrophils # (Auto) 4.2, Lymphocytes # (Auto) 1.9, Monocytes # (Auto) 0.9 H, Eosinophils # (Auto) 0.2, Basophils # (Auto) 0.0 Text Note Date of Service The CT scan was done on 12/31/18. NOTE NAME: JESUS LE DATE OF : 1950 AGE: 68 SEX: F REPORT #: [id number] ROOM: ED TECHNOLOGIST: KARIN DOCTOR: HOMERO ARREOLA MD Ordered for Date&Time: 12/31/18 1409 cc: [~ rep ct ivnm] Service Date&Time: 12/31/18 7001 EXAMINATION REQUESTED: CT ABD & PELVIS W/O CONTRAST REASON FOR PATIENT VISIT: GI BLEED REASON FOR EXAM/COMMENT: low abd cramping, GI bleeding CT abdomen and pelvis without contrast: 12/31/2018. Comparison 10/11/2018. Clinical history: Low abdominal cramping, GI bleeding. Had an episode of GI bleeding 10/10/2018 with some free air from presumed rectal perforation. Technique: Scanning through the abdomen and pelvis without oral or IV contrast and with coronal and sagittal reconstructions provided. There has been prior focal lumbar fusion with pedicle screws from T11-T12 through L4. Compression fractures of L2 seen with retropulsed fragment unchanged. Kyphoplasty cement at that level. The lung bases showed no effusion, infiltrate, nodule or mass. Heart not enlarged. No pericardial thickening or effusion. Small hiatal hernia suspected. Some calcifications aorta without aneurysm. Liver is borderline in size with right hepatic lobe 18 cm in vertical diameter. Left hepatic lobe not enlarged. There is no intrahepatic biliary dilatation. Appearance of liver unchanged. There is no splenomegaly or focal splenic lesion. Stomach filled with retained food. No evidence of obstruction. Small bowel loops are fluid-filled but not abnormally dilated. The colon with the mixed stool, gas, and fluid but no evidence of colitis or diverticulitis in the abdomen proper. No periaortic or retroperitoneal or mesenteric pathologic sized lymph nodes. Gallbladder shows no calcified stone or mass. The pancreas without mass, ductal dilatation, peripancreatic adenopathy or fluid. Adrenal glands normal. Kidneys are atrophic bilaterally as before. Lung window review of all CT slices abdomen and pelvis shows no perforation or free air. The bone windows show no change from the previous CT in September with no new compression deformity or destructive lesion. Gaines rods and pedicle screws unchanged without hardware failure. CT pelvis: Bones demineralized. The sacrum, pelvis and hips show some degenerative change but no destructive lesion or fracture. Uterus absent. The vaginal cuff intact. Bladder shows no mass or wall thickening. There is no renal, ureteral or bladder stone evident. There are a few pelvic phleboliths, but these are unchanged. Small bowel loops fluid-filled but not abnormally dilated. There are no inflammatory changes about the cecum. The appendix is absent. I see no ventral or inguinal hernia nor pathologic sized inguinal adenopathy. The distal left colon, sigmoid and rectum are without acute inflammatory changes, mass or stricture. Impression: 1. No CT evidence of mass, diverticulitis or colitis, ascites, perforation or free air in the abdomen or pelvis. 2. Fluid-filled colon and small bowel loops. This may reflect some gastroenteritis and/or ileus or both. 3. Solid organs in the upper abdomen including the liver, spleen and adrenal glands as well as pancreas were unremarkable. 4. The kidneys do show bilateral atrophy but no hydronephrosis or stone. Pancreas grossly intact. Nothing acute. Unreviewed DD: Fritz Trinidad MD 12/31/18 1451 DT: GABBY 12/31/18 1510 DS: Objective Physical Examination General Exam: Positive: Alert, Cooperative, No Acute Distress ENT Exam: Positive: Atraumatic Neck Exam: Positive: Supple, +2 carotid pulse wo bruit Chest Exam: Positive: Clear to auscultation, Normal air movement Heart Exam: Positive: Rate Normal Telemetry: Positive: No significant arrhythmia Neuro Exam: Positive: Normal Speech, Strength at 5/5 X4 ext, Normal Tone, Sensation Intact Psych Exam: Positive: Mental status NL, Mood NL, Memory Intact, Oriented x 3 Assessment/Plan Assessment 68-year-old female with end-stage renal disease with new onset lower gastrointestinal bleeding with hypotension requiring blood transfusion. Plan Patient will undergo a mesenteric angiogram with iliofemoral angiography to evaluate for source of gastrointestinal bleeding. Charli Raymundo MD Dec 31, 2018 18:02
[2018-12-31] MEDS ORDERED: MIDAZOLAM INJ 2 MG/2 ML VIAL (J2250) As Ordered ONE (18:14)
[2018-12-31] MEDS ORDERED: KETAMINE HCL 200 MG/20 ML VIAL As Ordered ONE (18:14)
[2018-12-31] MEDS ORDERED: ISOVUE-300 61% 50ML VIAL (Q9967) As Ordered ONE (18:15)
[2018-12-31] MEDS ORDERED: LIDOCAINE 2% MDV 20 ML VIAL As Ordered ONE (18:15)
[2018-12-31] MEDS ORDERED: LIDOCAINE 2% MDV 20 ML VIAL XX ONE (19:22)
[2018-12-31] MEDS ORDERED: ISOVUE-300 61% 50ML VIAL (Q9967) XX ONE (19:25)
[2018-12-31] MEDS: NS 1,000 ML IV SCH (20:02)
[2018-12-31] MEDS ORDERED: ACETAMINOPHEN TAB 650MG DOSE (2X325MG) PO PRN (20:15)
--- NOTE | 2018-12-31 21:38 | HPE ---
DATE OF ADMISSION: 12/31/2018 68-year-old female with past medical history of lower GI bleed, diverticulosis, irritable bowel syndrome (IBS), history of colonic polyps, status post polypectomy December 24, 2018 presents to the emergency room after having multiple massive hematochezia since this morning. Patient said in the morning she felt like she had a bowel movement, went to the bathroom and she started pouring blood. Completely asymptomatic. However, the multiple bouts and the volume of the bleeding scared her so she came to the ER for evaluation. In the ER, she had multiple episodes of hematochezia as well with order for stat 2 units packed red blood cells and Dr. Hernandez our general surgeon was consulted in the ER. Patient's pressure dropped after only 1.5 liters of IV fluids had been given, and the patient had a central line placed and started on IV Levophed. She will be admitted to the ICU for further management. At this time, she is awake, alert and oriented times three. She denies any abdominal pain, nausea, vomiting, no chest pain or shortness of breath. PAST MEDICAL HISTORY: Hypertension. Hyperlipidemia. History of irritable bowel syndrome. Diverticulosis. History of colonic polyps, status post polypectomy in December of 2018. Gastroesophageal reflux disease (GERD). History of Goodpasture's disease with resultant end-stage renal disease, on hemodialysis Sunday, Sunday, Sunday. Last dialysis was yesterday. History of grade 1 diastolic dysfunction. Obstructive sleep apnea, on CPAP. History of COPD, not oxygen dependent. Asthmatic. Hypothyroidism. History of cauda equina syndrome, status post laminectomy L1 and L2. OTHER PAST SURGICAL HISTORY: Total abdominal hysterectomy with bilateral salpingo-oophorectomy. Appendectomy. Thyroidectomy. ALLERGIES: BUTALBITAL. FAMILY HISTORY: Noncontributory. SOCIAL HISTORY: Patient has a 30 pack year history of smoking. Quit over 10 years ago. Denies alcohol or illicit drugs. MEDICATIONS SHE TAKES AT HOME: Are as follow: - Tylenol 1 gram every 6 as needed - albuterol 2.5 mg inhaled four times a day - amlodipine 10 mg orally daily - Azelastine 1 spray each nostril twice a day - calcitonin 1 spray each nostril at bedtime - FiberCon 625 mg orally daily - cetirizine 10 mg orally at bedtime - clonidine 0.1 mg by mouth three times a week - cyanocobalamin 5 mg orally three times a day as needed - dicyclomine 20 mg orally four times a day - Colace 100 mg orally daily as needed - fish oil 1000 mg orally daily - fluticasone 2 sprays each nostril daily - guaifenesin 600 mg orally every 12 hours as needed - hydralazine 50 mg orally three times a day - hydrocortisone topical to hemorrhoids as needed - lactobacillus 1 tablet orally daily - Synthroid 112 mg orally daily - loperamide 4 mg as needed - losartan 100 mg orally every pm - melatonin 10 mg orally at bedtime - metoprolol 50 mg orally twice daily - mirtazapine 50 mg orally at bedtime - prochlorperazine 10 mg orally every 6 hours as needed - pravastatin 40 mg orally at bedtime - simethicone as needed - Systane 1 drop to both eyes three times a day as needed - Gabitril 4 mg orally daily REVIEW OF SYSTEMS: Negative all 10 major systems except what is mentioned in HPI. VITALS: Blood pressure is 83/48, heart rate is 75 and regular. Respiratory rate is 22, temperature 98, oxygen saturation 98% on room air. Head: Atraumatic. Normocephalic. Neck: Supple. No jugular venous distention (JVD). Lungs: Clear to auscultation. S1, S2 audible. No murmurs appreciated. Abdomen: Soft, positive bowel sounds. No pedal edema. Skin: Intact. Neurological examination: Patient awake, alert and oriented times three. LABS: WBC 7.3, hemoglobin is 14.1, hematocrit 44.6, platelets are 257,000. Sodium 141, potassium 4.4, chloride 105, CO2 26, BUN is 44, creatinine 0.42. Glucose is 1.7. Lipase 225. CT abdomen and pelvis showed no evidence of mass, diverticulitis or colitis, or perforation. IMPRESSION: 1. Acute lower GI bleed. 2. Hypotension secondary to hypovolemic shock. PLAN: Patient is to be admitted to the ICU. Will continue giving her gentle hydration but we have to be very careful how much fluid we give to her since she is a dialysis patient and is anuric. Will continue the Levophed and titrate to keep mean arterial pressure (MAP) greater than 65. Will give her 2 units of packed red blood cells and check posttransfusion CBC and transfuse further if necessary. Dr. Hernandez is on board and if the bleeding does continue will likely do a colonoscopy without prep to try to localize the bleed. I will keep her nothing by mouth except for inhalers and her Synthroid which I will switch to IV and start her on IV Protonix drip in the small chance this is a fast transit upper GI bleed. Will continue following her care in the ICU. Total critical care time: 65 minutes.
[2018-12-31] MEDS: ACETAMINOPHEN TAB 650MG DOSE (2X325MG) PO PRN (21:39)
--- NOTE | 2018-12-31 21:39 | RO ---
DATE OF PROCEDURE: 12/31/2018 PREPROCEDURE DIAGNOSIS: Hypotension, hemorrhagic shock, gastrointestinal (GI) bleed. POSTPROCEDURE DIAGNOSIS: Hypotension, hemorrhagic shock, gastrointestinal bleed. PROCEDURE: Left internal jugular (IJ) triple lumen central line. SURGEON: Dr. Maggi Perez HEEL SEAT LASTER: None. ANESTHESIA: 1% local lidocaine. SEDATION: None. VENTILATION: 2 liters nasal cannula. ESTIMATED BLOOD LOSS: 10 mL. DESCRIPTION OF PROCEDURE: Consent was obtained. Risks and benefits explained. Time-out was done. Patient was placed in Trendelenburg position. Initially the right side of the patient's neck was cleaned with Chloraprep and ultrasound probe with sterile probe cover was used. 1% lidocaine subcutaneous was injected with ultrasound guidance. Subsequently, needle was inserted with ultrasound guidance with flash of blood was obtained, but unable to thread the wire after a second attempt. Procedure was aborted given patient had history of dialysis catheter that was placed on the patient's right side, suspected to be scar tissue. Subsequently, left side of patient's neck was cleaned with Chloraprep, and the patient was covered again in the usual manner. Ultrasound probe with sterile probe cover was used again. Subcutaneous 1% lidocaine was injected with ultrasound guidance and introducer needle was inserted with ultrasound guidance. Flash of blood was obtained and guidewire was inserted through the introducer needle. Introducer needle was removed. Guidewire position was confirmed with ultrasound. Site was subsequently dilated and triple lumen central line was inserted via Seldinger technique over the guidewire. Guidewire was removed. All three ports of the triple lumen central line was flushed and clamped, and triple lumen central line was secured with stitches. Dressing was placed. X-ray was ordered for confirmation. Patient tolerated the procedure with no complications. Estimated blood loss 10 mL.
[2018-12-31] MEDS: ALBUTEROL SULFATE 2.5 MG/0.5 ML INH NEB SOLN INH SCH (23:43)
[2019-01-01] VITALS (38 sets, daily range): BP systolic 100–158; BP diastolic 37–76
[2019-01-01] MEDS: PANTOPRAZOLE SODIUM 40 MG in D5W 50 ML IV SCH ×4 (00:04→15:04)
[2019-01-01] MEDS: NS 1,000 ML IV SCH (03:12)
[2019-01-01 03:52] LABS: BASO % 0.3 % (0.0-1.0); EOS # 0.1 10^3/uL (0.0-0.50); EOS % 1.9 % (0.0-3.0); HEMATOCRIT 26.2 % (36.0-47.0); LYMPH # 1.4 10^3/uL (1.5-4.5); LYMPH % 24.6 % (24.0-44.0); MEAN CORPUSCULAR HEMOGLOBIN 29.9 pg (27.0-33.0); MEAN CORPUSCULAR HGB CONC 32.1 g/dl (32.0-36.5); MEAN CORPUSCULAR VOLUME 93.2 fl (80.0-96.0); MONO # 0.8 10^3/uL (0.0-0.8); MONO % 14.5 % (0.0-5.0); NEUTROPHILS # 3.3 10^3/uL (1.8-7.7); NEUTROPHILS % 58.2 % (36.0-66.0); PLATELET COUNT, AUTOMATED 108 10^3/uL (150-450); RED BLOOD COUNT 2.81 10^6/uL (4.00-5.40); WHITE BLOOD COUNT 5.7 10^3/uL (4.0-10.0)
[2019-01-01 03:55] LABS: HEMOGLOBIN 8.4 g/dl (12.0-15.5)
[2019-01-01 04:42] LABS: CALCIUM LEVEL 7.4 MG/DL (8.8-10.2); CREATININE FOR GFR 8.78 MG/DL (0.55-1.30); GLOMERULAR FILTRATION RATE 4.8 (>45); POTASSIUM SERUM 3.9 MEQ/L (3.5-5.1)
[2019-01-01] MEDS ORDERED: LEVOTHYROXINE 112MCG TABLET (0.112MG) PO SCH (06:00)
[2019-01-01] MEDS ORDERED: ONDANSETRON 4MG/2ML VIAL (J2405) As Ordered ONE (06:30)
[2019-01-01] MEDS ORDERED: NOREPINEPHRINE BITARTRATE 8 MG in D5W 492 ML IV SCH (06:30)
[2019-01-01] MEDS: ONDANSETRON 4MG/2ML VIAL (J2405) IV PRN ×2 (06:32→13:08)
[2019-01-01] MEDS ORDERED: ISOVUE-300 61% 50ML VIAL (Q9967) As Ordered ONE (06:59)
[2019-01-01] MEDS ORDERED: LIDOCAINE 2% MDV 20 ML VIAL As Ordered ONE (06:59)
[2019-01-01] MEDS ORDERED: fentaNYL 100 MCG/2 ML INJECTION (J3010) As Ordered ONE (07:20)
[2019-01-01] MEDS ORDERED: MIDAZOLAM INJ 2 MG/2 ML VIAL (J2250) As Ordered ONE (07:21)
[2019-01-01] MEDS: ALBUTEROL SULFATE 2.5 MG/0.5 ML INH NEB SOLN INH SCH ×4 (08:00→19:46)
[2019-01-01 08:48] LABS: BASO # 0.1 10^3/uL (0.0-0.2); BASO % 0.7 % (0.0-1.0); EOS # 0.1 10^3/uL (0.0-0.50); HEMATOCRIT 28.8 % (36.0-47.0); HEMOGLOBIN 9.4 g/dl (12.0-15.5); LYMPH # 1.1 10^3/uL (1.5-4.5); LYMPH % 15.4 % (24.0-44.0); MEAN CORPUSCULAR HEMOGLOBIN 30.2 pg (27.0-33.0); MEAN CORPUSCULAR HGB CONC 32.6 g/dl (32.0-36.5); MEAN CORPUSCULAR VOLUME 92.6 fl (80.0-96.0); MONO # 0.7 10^3/uL (0.0-0.8); MONO % 9.2 % (0.0-5.0); NEUTROPHILS # 5.4 10^3/uL (1.8-7.7); NEUTROPHILS % 73.2 % (36.0-66.0); PLATELET COUNT, AUTOMATED 133 10^3/uL (150-450); RED BLOOD COUNT 3.11 10^6/uL (4.00-5.40); WHITE BLOOD COUNT 7.4 10^3/uL (4.0-10.0)
[2019-01-01] MEDS ORDERED: LEVOTHYROXINE 100 MCG (0.1MG) VIAL IV SCH (09:00)
[2019-01-01 09:34] LABS: INR 1.14; PROTHROMBIN TIME 14.8 SECONDS (12.1-14.4)
[2019-01-01 09:35] LABS: PARTIAL THROMBOPLASTIN TIME 32.2 SECONDS (25.4-37.6)
[2019-01-01] MEDS: FLUTICASONE PROP 0.05% NASAL SPRAY 16 GM (FLONASE) SCH (10:11)
[2019-01-01] MEDS ORDERED: MAGNESIUM CITRATE 300 ML BTL PO ONE (10:30)
[2019-01-01] MEDS ORDERED: FLEET ENEMA PR ONE (10:30)
[2019-01-01 12:08] LABS: HEMATOCRIT 24.7 % (36.0-47.0); HEMOGLOBIN 8.3 g/dl (12.0-15.5); MEAN CORPUSCULAR HEMOGLOBIN 30.2 pg (27.0-33.0); MEAN CORPUSCULAR HGB CONC 33.6 g/dl (32.0-36.5); MEAN CORPUSCULAR VOLUME 89.8 fl (80.0-96.0); PLATELET COUNT, AUTOMATED 163 10^3/uL (150-450); RED BLOOD COUNT 2.75 10^6/uL (4.00-5.40); WHITE BLOOD COUNT 9.4 10^3/uL (4.0-10.0)
--- NOTE | 2019-01-01 15:27 | CR ---
DATE OF CONSULTATION: 01/01/2019 REASON FOR CONSULTATION: Assist in the management of end-stage renal disease. HISTORY OF PRESENT ILLNESS: Ms. Jim is a 68-year-old female with multiple chronic medical problems including history of end-stage renal disease secondary to anti-glomerular basement membrane (GBM) disease, history of prior gastrointestinal (GI) bleed, history of diverticulosis, history of severe osteoporosis status post osteoplasty of her vertebra, history of colon polyps status post polypectomy 12/24/2018, history of [place] disease leading to end-stage renal disease, history of grade 1 diastolic congestive heart failure, history of obstructive sleep apnea, history of chronic obstructive pulmonary disease (COPD), history of hypothyroidism, and history of cauda equina syndrome status post laminectomy. MEDICATIONS: Her home medications include: - albuterol inhaler four times a day - amlodipine 10 mg daily - calcitonin one spray in each nostril at bedtime - cetirizine 10 mg at bedtime - clonidine 0.1 mg three times a day - dicyclomine 20 mg four times a day - fish oil 1000 mg daily - hydralazine 50 mg three times a day - Synthroid 112 mcg daily - losartan 100 mg daily - melatonin 10 mg at bedtime - metoprolol 50 mg twice a day - mirtazapine 50 mg at bedtime - pravastatin 40 mg daily - Gabatrol 4 mg daily ALLERGIES: She has allergy to BUTALBITAL. PAST SURGICAL HISTORY: Significant for appendectomy, thyroidectomy, total abdominal hysterectomy and bilateral salpingo-oophorectomy, arteriovenous (AV) fistula creation, Perma-Cath placement and removal, and recent colonoscopy with polypectomy. FAMILY HISTORY: Negative for end-stage renal disease. PERSONAL AND SOCIAL HISTORY: The patient quit smoking about 10 years ago and has 30-pack years history of smoking. She denies any alcohol or drug use. REVIEW OF SYSTEMS: The patient is feeling weak and tired. She was feeling well until she started to have rectal bleeding yesterday. She denies any dyspnea, chest pain, fever or chills. Ears, nose and throat are unremarkable other than difficulty hearing. She has no sore throat or sinus problems at present. Cardiovascular system is negative for dyspnea or chest pain. Respiratory system is negative for cough or hemoptysis. Gastrointestinal (GI) system is as per history of present illness. The patient has some pain in her left lower quadrant but denies any vomiting. She had multiple bowel movements with copious amounts of bright red blood. Musculoskeletal system is significant for severe osteoporosis and compression fractures of spine. Endocrine system is significant for hypothyroidism and secondary hyperparathyroidism. Psychosocial system is significant for depression and anxiety. Neurological system is significant for peripheral neuropathy. She has no history of stroke. PHYSICAL EXAMINATION: Temperature 97.4 degrees Fahrenheit, heart rate 98 per minute and respiratory rate 24 per minute. Blood pressure 100/50 mmHg and oxygen saturation 99%. Head is atraumatic. Neck veins are not abnormally distended. She has a central line in left internal jugular vein. There is a dressing at the site of attempted central line on the right internal jugular site. Heart sounds are tachycardiac. Lungs sound clear to auscultation. Abdomen is soft with mild tenderness in left lower quadrant. Bowel sounds are normal. Extremities have no cyanosis or clubbing. Neurologically, she is at her baseline mentation. LABORATORY DATA: Her initial laboratories showed a hemoglobin of 14.1 and hematocrit 44.6. At 3:46 a.m. today, her hemoglobin was down to 8.4 and hematocrit 26.2. She has been transfused four units of packed RBCs. At 8:35 a.m., hemoglobin was 9.4 and hematocrit 28.8. Most recent CBC from 11:48 a.m. showed hemoglobin of 8.3 and hematocrit 24.7. Her laboratories done today showed sodium 145, potassium 3.9, CO2 26, BUN 49 and creatinine 8.78. Calcium level is 7.4. PROBLEMS: 1. End-stage renal disease. The patient is regularly dialyzed I believe on Sunday, Sunday and Sunday schedule. At this point, there is no emergent need for dialysis today. I feel that the patient has been given IV contrast for angiogram. However, her volume status is well-compensated and she already has end-stage renal disease, so there is no risk for nephrotoxicity. I do not feel that emergent dialysis is indicated, particularly when she is very unstable with active gastrointestinal (GI) bleed. Once her GI bleed stops and she becomes more stable then we can dialyze her. 2. Acute blood loss anemia. She seems to have lower GI bleed. She just had a colonoscopy and polyp removed 12/24/2018. She has history of diverticulosis. She needs to have a colonoscopy done and may even need a partial colectomy. I have discussed with Dr. Hernandez and have requested him to do a colonoscopy urgently today and consider further intervention as indicated. 3. History of diastolic congestive heart failure. So far, her volume status is well-compensated and we can transfuse her as needed. There is no emergent need for dialysis at this point. She has received multiple units of transfusion. However, she also has lost significant amount of blood. Thank you for involving me in the care of Ms. Jim. I will follow her along with you.
--- NOTE | 2019-01-01 15:48 | IPNPDOC ---
Subjective General Date/Time Seen The patient was seen on 01/01/19 at 15:40. Subject Chief Complaint/History The patient is a 68-year-old female admitted with a reason for visit of Hypotension,Lower Gi Bleeding. Patient admitted overnight with brisk rectal bleeding with transient hypotension. So far she has had multiple blood transfusions including 4 units of packed RBCs and FFP and platelets. She has had 2 negative angiograms in between the times that she dropped her pressures. At the moment patient is hemodynami nam stable. Her last hemoglobin was 8.4. Current Medications Current Medications Current Medications Acetaminophen (Tylenol Tab) 650 mg Q6HP PRN PO PAIN / FEVER; Start 12/31/18 at 20:15; Stop 12/31/18 at 20:17; Status DC Acetaminophen (Tylenol Tab) 650 mg Q8HP PRN PO PAIN / FEVER Last administered on 12/31/18at 21:39; Start 12/31/18 at 21:30 Albuterol Sulfate (Proventil Neb) 2.5 mg RQID INH Last administered on 01/01/19at 15:19; Start 12/31/18 at 20:00 Artificial Tears ([place] Tears) 1 drop Q2H PRN OU DRY EYES; Start 12/31/18 at 17:30 Fluticasone Propionate (Flonase 0.05% Nasal [place]) 2 spray DAILY NA Last administered on 01/01/19at 10:11; Start 01/01/19 at 09:00 Home Med (Med Rec Complete!) ASDIRECTED XX ; Start 12/31/18 at 15:00; Stop 12/31/18 at 15:03; Status DC Levothyroxine Sodium (Synthroid) 56 mcg DAILY IV Last administered on 01/01/19at 10:11; Start 01/01/19 at 09:00 Levothyroxine Sodium (Synthroid) 112 mcg DAILY@0600 PO ; Start 01/01/19 at 06:00; Stop 01/01/19 at 06:00; Status DC Norepinephrine Bitartrate 8 mg/ Dextrose 500 ml @ 30 mls/hr [id number] IV Last administered on 12/31/18at 16:47; Start 12/31/18 at 16:33; Stop 01/01/19 at 06:20; Status DC Norepinephrine Bitartrate 8 mg/ Dextrose 500 ml @ 37.5 mls/hr [id number] IV ; Start 01/01/19 at 06:30; Status Future Hold Ondansetron HCl (ZOFRAN INJection) 4 mg Q4HP PRN IV NAUSEA OR VOMITING Last administered on 01/01/19at 13:08; Start 01/01/19 at 06:30 Pantoprazole Sodium 40 mg/ Dextrose 50 ml @ 10 mls/hr Q5H IV Last administered on 01/01/19at 15:04; Start 12/31/18 at 17:15 Sodium Chloride 1,000 ml @ 100 mls/hr Q10H IV Last administered on 01/01/19at 03:12; Start 12/31/18 at 17:12; Stop 01/01/19 at 04:34; Status DC Allergies Coded Allergies: Butalbital (Verified Adverse Reaction, Unknown, HYPER AWAKEFULNESS, 12/20 12/10) Objective Physical Examination Examination GENERAL APPEARANCE: Comfortable. SKIN: Woman dry. HEENT: Pale palpebral conjunctiva. NECK: Supple, no thyromegaly. No obvious jugular venous distention. LUNGS: Clear to auscultation bilaterally. No wheezing appreciated. HEART: No chest wall abnormalities. Regular rate and rhythm with no murmurs appreciated. ABDOMEN: Abdomen is slightly rounded, soft, minimally distended slightly tympanitic to percussion. Nontender on palpation. EXTREMITIES: Left arm AV fistula. Vital Signs Vital Signs Date Time Temp Pulse Resp B/P (MAP) Pulse Ox O2 Delivery O2 Flow Rate FiO2 01/01/19 15:20 103 17 01/01/19 15:00 98.0 145/57 (85) 100 2.0 125/60 (86) 12/31/18 14:10 Room Air I&Os I&O- Last 24 Hours up to 6 AM 01/01/19 06:00 Intake Total 3299 ml Output Total 0 ml Balance 3299 ml Laboratory Data Labs 24H Laboratory Tests 2 01/01/19 03:46: Immature Granulocyte % (Auto) 0.5, White Blood Count 5.7, Red Blood Count 2.81L, Hemoglobin 8.4#L, Hematocrit 26.2L, Mean Corpuscular Volume 93.2, Mean Corpuscular Hemoglobin 29.9, Mean Corpuscular Hemoglobin Concent 32.1, Red Cell Distribution Width 14.8H, Platelet Count 108L, Neutrophils (%) (Auto) 58.2, Lymphocytes (%) (Auto) 24.6, Monocytes (%) (Auto) 14.5H, Eosinophils (%) (Auto) 1.9, Basophils (%) (Auto) 0.3, Neutrophils # (Auto) 3.3, Lymphocytes # (Auto) 1.4L, Monocytes # (Auto) 0.8, Eosinophils # (Auto) 0.1, Basophils # (Auto) 0.0, Nucleated Red Blood Cells % (auto) 0.0, Anion Gap 10, Glomerular Filtration Rate 4.8L, Blood Urea Nitrogen 49H, Creatinine 8.78*H, Sodium Level 145, Potassium Level 3.9, Chloride Level 109H, Carbon Dioxide Level 26, Calcium Level 7.4L 01/01/19 08:35: Immature Granulocyte % (Auto) 0.5, White Blood Count 7.4, Red Blood Count 3.11L, Hemoglobin 9.4L, Hematocrit 28.8L, Mean Corpuscular Volume 92.6, Mean Corpuscular Hemoglobin 30.2, Mean Corpuscular Hemoglobin Concent 32.6, Red Cell Distribution Width 14.4, Platelet Count 133L, Neutrophils (%) (Auto) 73.2H, Lymphocytes (%) (Auto) 15.4L, Monocytes (%) (Auto) 9.2H, Eosinophils (%) (Auto) 1.0, Basophils (%) (Auto) 0.7, Neutrophils # (Auto) 5.4, Lymphocytes # (Auto) 1.1L, Monocytes # (Auto) 0.7, Eosinophils # (Auto) 0.1, Basophils # (Auto) 0.1, Nucleated Red Blood Cells % (auto) 0.0 01/01/19 08:36: Prothrombin Time 14.8H, Prothromb Time International Ratio 1.14, Activated Partial Thromboplast Time 32.2 01/01/19 11:48: Nucleated Red Blood Cells % (auto) 0.0 CBC/BMP Laboratory Tests 01/01/19 03:46 Red Blood Count 2.81 L, Mean Corpuscular Volume 93.2, Mean Corpuscular Hemoglobin 29.9, Mean Corpuscular Hemoglobin Concent 32.1, Red Cell Distribution Width 14.8 H, Neutrophils (%) (Auto) 58.2, Lymphocytes (%) (Auto) 24.6, Monocytes (%) (Auto) 14.5 H, Eosinophils (%) (Auto) 1.9, Basophils (%) (Auto) 0.3, Neutrophils # (Auto) 3.3, Lymphocytes # (Auto) 1.4 L, Monocytes # (Auto) 0.8, Eosinophils # (Auto) 0.1, Basophils # (Auto) 0.0, Calcium Level 7.4 L 01/01/19 08:35 Red Blood Count 3.11 L, Mean Corpuscular Volume 92.6, Mean Corpuscular Hemoglobin 30.2, Mean Corpuscular Hemoglobin Concent 32.6, Red Cell Distribution Width 14.4, Neutrophils (%) (Auto) 73.2 H, Lymphocytes (%) (Auto) 15.4 L, Monocytes (%) (Auto) 9.2 H, Eosinophils (%) (Auto) 1.0, Basophils (%) (Auto) 0.7 , Neutrophils # (Auto) 5.4, Lymphocytes # (Auto) 1.1 L, Monocytes # (Auto) 0.7, Eosinophils # (Auto) 0.1, Basophils # (Auto) 0.1 01/01/19 11:48 Red Blood Count 2.75 L, Mean Corpuscular Volume 89.8, Mean Corpuscular Hemoglobin 30.2, Mean Corpuscular Hemoglobin Concent 33.6, Red Cell Distribution Width 14.5 Impression GI bleeding probably diverticular We'll proceed with colonoscopy given 2 negative angiograms. I have given her some mag citrate and Fleet's enema to try to get some of the blood clots out. She is hemodynamically stable. Awaiting availability of the room. Consent has been obtained. Plan / VTE VTE Prophylaxis Ordered?: No VTE Exclusion Pharmacological: Active Bleeding BERNIE AMEZCUA MD Jan 01, 2019 15:48
--- NOTE | 2019-01-01 16:49 | IPNPDOC ---
Subjective Date Seen The patient was seen on 01/01/19. Subjective Chief Complaint/HPI Patient seen and examined the bedside. She continues to have intermittent bright red bowel movements with clots included. She denies any nausea, vomiting, abdominal pain at the time of my visit. She remains hemodynamically stable. She is status post 2 negative angiograms. General surgery on board for colonoscopy this afternoon. Objective Physical Examination General Exam: Positive: Alert, Cooperative, No Acute Distress ENT Exam: Positive: Atraumatic Chest Exam: Positive: Clear to auscultation, Normal air movement Heart Exam: Positive: Tachycardic, Normal S1, Normal S2 Abdomen Exam: Positive: Soft; Negative: Tenderness Extremity Exam: Negative: Tenderness, Swelling Psych Exam: Positive: Oriented x 3 Assessment /Plan Plan/VTE VTE Prophylaxis Ordered?: Yes VTE Exclusion Pharmacological: Active Bleeding Plan Acute Blood Loss Anemia likely 2/2 Diverticular Bleed s/p Colonoscopy on 12/24/18 with Polypectomy s/p Transfusion of 2 Units of FFP and Platelets, and 4 Units of PRBC's Patient's Hgb 8.3 this afternoon--additional Unit of PRBC ordered She is s/p 2 negative angiograms with Vascular Surgery General Surgery on board-->Scheduled for Colonoscopy this Afternoon The patient is currently hemodynamically stable, but does have transient hypotension with bloody bowel movements. We'll continue to monitor the patient in the intensive care unit with serial H&H's and follow-up with general surgery recommendations. End-stage renal disease on hemodialysis Nephrology on board History of diastolic congestive heart failure The patient does not appear to be decompensated at this time. History of hypothyroidism Continue levothyroxine intravenously History of COPD, stable Continue albuterol when necessary History of hypertension, stable Antihypertensive medication has been held as the patient's blood pressure has been stable, and given the concern for recurrent GI bleeding DVT prophylaxis TEDs/SCDs Guarded Clinical Condition, Continue to monitor in the ICU VS, I&O, 24H, Fishbone Vital Signs/I&O Vital Signs Date Time Temp Pulse Resp B/P (MAP) Pulse Ox O2 Delivery O2 Flow Rate FiO2 01/01/19 16:00 2.0 01/01/19 16:00 98.5 101 21 133/52 (75) 100 109/53 (77) 12/31/18 14:10 Room Air I&O- Last 24 Hours up to 6 AM 01/01/19 06:00 Intake Total 3299 ml Output Total 0 ml Balance 3299 ml Laboratory Data 24H LABS Laboratory Tests 2 01/01/19 03:46: Immature Granulocyte % (Auto) 0.5, White Blood Count 5.7, Red Blood Count 2.81L, Hemoglobin 8.4#L, Hematocrit 26.2L, Mean Corpuscular Volume 93.2, Mean Corpuscular Hemoglobin 29.9, Mean Corpuscular Hemoglobin Concent 32.1, Red Cell Distribution Width 14.8H, Platelet Count 108L, Neutrophils (%) (Auto) 58.2, Lymphocytes (%) (Auto) 24.6, Monocytes (%) (Auto) 14.5H, Eosinophils (%) (Auto) 1.9, Basophils (%) (Auto) 0.3, Neutrophils # (Auto) 3.3, Lymphocytes # (Auto) 1.4L, Monocytes # (Auto) 0.8, Eosinophils # (Auto) 0.1, Basophils # (Auto) 0.0, Nucleated Red Blood Cells % (auto) 0.0, Anion Gap 10, Glomerular Filtration Rate 4.8L, Blood Urea Nitrogen 49H, Creatinine 8.78*H, Sodium Level 145, Potassium Level 3.9, Chloride Level 109H, Carbon Dioxide Level 26, Calcium Level 7.4L 01/01/19 08:35: Immature Granulocyte % (Auto) 0.5, White Blood Count 7.4, Red Blood Count 3.11L, Hemoglobin 9.4L, Hematocrit 28.8L, Mean Corpuscular Volume 92.6, Mean Corpuscular Hemoglobin 30.2, Mean Corpuscular Hemoglobin Concent 32.6, Red Cell Distribution Width 14.4, Platelet Count 133L, Neutrophils (%) (Auto) 73.2H, Lymp hocytes (%) (Auto) 15.4L, Monocytes (%) (Auto) 9.2H, Eosinophils (%) (Auto) 1.0, Basophils (%) (Auto) 0.7, Neutrophils # (Auto) 5.4, Lymphocytes # (Auto) 1.1L, Monocytes # (Auto) 0.7, Eosinophils # (Auto) 0.1, Basophils # (Auto) 0.1, Nucleated Red Blood Cells % (auto) 0.0 01/01/19 08:36: Prothrombin Time 14.8H, Prothromb Time International Ratio 1.14, Activated Partial Thromboplast Time 32.2 01/01/19 11:48: Nucleated Red Blood Cells % (auto) 0.0 CBC/BMP Laboratory Tests 01/01/19 03:46 Red Blood Count 2.81 L, Mean Corpuscular Volume 93.2, Mean Corpuscular Hemoglobin 29.9, Mean Corpuscular Hemoglobin Concent 32.1, Red Cell Distribution Width 14.8 H, Neutrophils (%) (Auto) 58.2, Lymphocytes (%) (Auto) 24.6, Monocytes (%) (Auto) 14.5 H, Eosinophils (%) (Auto) 1.9, Basophils (%) (Auto) 0.3, Neutrophils # (Auto) 3.3, Lymphocytes # (Auto) 1.4 L, Monocytes # (Auto) 0.8, Eosinophils # (Auto) 0.1, Basophils # (Auto) 0.0, Calcium Level 7.4 L 01/01/19 08:35 Red Blood Count 3.11 L, Mean Corpuscular Volume 92.6, Mean Corpuscular Hemoglobin 30.2, Mean Corpuscular Hemoglobin Concent 32.6, Red Cell Distribution Width 14.4, Neutrophils (%) (Auto) 73.2 H, Lymphocytes (%) (Auto) 15.4 L, Monocytes (%) (Auto) 9.2 H, Eosinophils (%) (Auto) 1.0, Basophils (%) (Auto) 0.7, Neutrophils # (Auto) 5.4, Lymphocytes # (Auto) 1.1 L, Monocytes # (Auto) 0.7, Eosinophils # (Auto) 0.1, Basophils # (Auto) 0.1 01/01/19 11:48 Red Blood Count 2.75 L, Mean Corpuscular Volume 89.8, Mean Corpuscular Hemoglobin 30.2, Mean Corpuscular Hemoglobin Concent 33.6, Red Cell Distribution Width 14.5 MANJU CORDOBA MD Jan 01, 2019 16:49
[2019-01-01 17:48] LABS: BASO % 0.4 % (0.0-1.0); EOS # 0.1 10^3/uL (0.0-0.50); EOS % 1.5 % (0.0-3.0); HEMATOCRIT 25.6 % (36.0-47.0); HEMOGLOBIN 8.6 g/dl (12.0-15.5); LYMPH # 1.4 10^3/uL (1.5-4.5); LYMPH % 19.9 % (24.0-44.0); MEAN CORPUSCULAR HEMOGLOBIN 29.8 pg (27.0-33.0); MEAN CORPUSCULAR HGB CONC 33.6 g/dl (32.0-36.5); MEAN CORPUSCULAR VOLUME 88.6 fl (80.0-96.0); MONO # 0.8 10^3/uL (0.0-0.8); MONO % 10.5 % (0.0-5.0); NEUTROPHILS # 4.9 10^3/uL (1.8-7.7); NEUTROPHILS % 67.3 % (36.0-66.0); PLATELET COUNT, AUTOMATED 131 10^3/uL (150-450); RED BLOOD COUNT 2.89 10^6/uL (4.00-5.40); WHITE BLOOD COUNT 7.3 10^3/uL (4.0-10.0)
[2019-01-01] MEDS ORDERED: PROPOFOL 200 MG/20 ML VIAL As Ordered ONE (17:55)
[2019-01-01] MEDS ORDERED: LIDOCAINE 2% INJ 100 MG/5 ML SDV (FOR ANES.) As Ordered ONE (17:55)
[2019-01-01 18:16] LABS: INR 1.15; PARTIAL THROMBOPLASTIN TIME 28.2 SECONDS (25.4-37.6); PROTHROMBIN TIME 14.9 SECONDS (12.1-14.4)
--- NOTE | 2019-01-01 19:13 | ROOR ---
Patient Name: Rocío Jim Procedure Date: 01/01/2019 6:27 PM Date of : 1950 Age: 68 Room: ICU bed 2 Gender: Female Note Status: Finalized Procedure: Colonoscopy Indications: Hematochezia, Rectal bleeding Providers: Gael Hernandez MD Referring MD: 2. Inpatient 2. Inpatient Requesting Provider: Medicines: Monitored Anesthesia Care Complications: No immediate complications. Procedure: Pre-Anesthesia Assessment: - Prior to the procedure, a History and Physical was performed, and patient medications and allergies were reviewed. The patient is competent. The risks and benefits of the procedure and the sedation options and risks were discussed with the patient. All questions were answered and informed consent was obtained. Patient identification and proposed procedure were verified by the physician, the nurse and the medical office technician in the procedure room. Mental Status Examination: alert and oriented. Airway Examination: normal oropharyngeal airway and neck mobility. Respiratory Examination: clear to auscultation. CV Examination: normal. Prophylactic Antibiotics: The patient does not require prophylactic antibiotics. Prior Anticoagulants: The patient has taken no previous anticoagulant or antiplatelet agents. ASA Grade Assessment: III - A patient with severe systemic disease. After reviewing the risks and benefits, the patient was deemed in satisfactory condition to undergo the procedure. The anesthesia plan was to use monitored anesthesia care (MAC). Immediately prior to administration of medications, the patient was re-assessed for adequacy to receive sedatives. The heart rate, respiratory rate, oxygen saturations, blood pressure, adequacy of pulmonary ventilation, and response to care were monitored throughout the procedure. The physical status of the patient was re-assessed after the procedure. The Colonoscope was introduced through the anus and advanced to the cecum, identified by appendiceal orifice and ileocecal valve. The colonoscopy was technically difficult and complex due to excessive bleeding. The patient tolerated the procedure well. The quality of the bowel preparation was poor with blood and blood clots. Findings: The perianal and digital rectal examinations were normal. Red blood was found in the entire colon. colon lavage performed to clear blood and blood clots A few small-mouthed diverticula were found in the sigmoid colon. Lavage of the area was performed using normal saline, resulting in clearance with adequate visualization. no active bleeding found in the diverticula blood clots noted covering a punched out ulcerated mucosa [stigmata of recent hemorrhage] were present in the cecum. Within the ulcer which most likely is the recent polypectomy site at the cecum just opposite the ileocecal valve is a visible vessel that is nonbleeding. Two hemoclips were placed, For hemostasis, two hemostatic clips were successfully placed (MR conditional). There was no bleeding during, or at the end, of the procedure. No additional abnormalities were found on retroflexion. Impression: - Blood in the entire examined colon. - Diverticulosis in the sigmoid colon. - Mucosal ulceration. Clips (MR conditional) were placed. - No specimens collected. Recommendation: - Admit the patient to ICU for ongoing care. - Clear liquid diet. Attending Participation: I personally performed the entire procedure. Gael Hernandez MD Gael Hernandez MD 01/01/2019 7:13:18 PM This report has been signed electronically. Number of Addenda: 0 Note Initiated On: 01/01/2019 6:27 PM Estimated Blood Loss: Estimated blood loss: none.
[2019-01-01] MEDS ORDERED: ONDANSETRON 4MG/2ML VIAL (J2405) IV PRN (19:30)
[2019-01-01] MEDS ORDERED: fentaNYL 100 MCG/2 ML INJECTION (J3010) IV PRN (19:30)
[2019-01-02] VITALS (20 sets, daily range): BP systolic 98–185; BP diastolic 39–70
[2019-01-02 00:17] LABS: BASO % 0.5 % (0.0-1.0); EOS # 0.1 10^3/uL (0.0-0.50); EOS % 1.7 % (0.0-3.0); HEMATOCRIT 22.2 % (36.0-47.0); HEMOGLOBIN 7.6 g/dl (12.0-15.5); LYMPH # 1.1 10^3/uL (1.5-4.5); LYMPH % 19.1 % (24.0-44.0); MEAN CORPUSCULAR HEMOGLOBIN 30.6 pg (27.0-33.0); MEAN CORPUSCULAR HGB CONC 34.2 g/dl (32.0-36.5); MEAN CORPUSCULAR VOLUME 89.5 fl (80.0-96.0); MONO # 0.7 10^3/uL (0.0-0.8); MONO % 11.9 % (0.0-5.0); NEUTROPHILS # 3.8 10^3/uL (1.8-7.7); NEUTROPHILS % 66.3 % (36.0-66.0); PLATELET COUNT, AUTOMATED 115 10^3/uL (150-450); RED BLOOD COUNT 2.48 10^6/uL (4.00-5.40); WHITE BLOOD COUNT 5.8 10^3/uL (4.0-10.0)
[2019-01-02 00:36] LABS: INR 1.1; PARTIAL THROMBOPLASTIN TIME 24.6 SECONDS (25.4-37.6); PROTHROMBIN TIME 14.4 SECONDS (12.1-14.4)
[2019-01-02 06:14] LABS: BASO % 0.6 % (0.0-1.0); EOS # 0.1 10^3/uL (0.0-0.50); EOS % 2.8 % (0.0-3.0); HEMATOCRIT 24.1 % (36.0-47.0); HEMOGLOBIN 8.1 g/dl (12.0-15.5); LYMPH # 1.1 10^3/uL (1.5-4.5); LYMPH % 21.4 % (24.0-44.0); MEAN CORPUSCULAR HEMOGLOBIN 29.7 pg (27.0-33.0); MEAN CORPUSCULAR HGB CONC 33.6 g/dl (32.0-36.5); MEAN CORPUSCULAR VOLUME 88.3 fl (80.0-96.0); MONO # 0.6 10^3/uL (0.0-0.8); MONO % 12.7 % (0.0-5.0); NEUTROPHILS # 3.1 10^3/uL (1.8-7.7); NEUTROPHILS % 61.7 % (36.0-66.0); RED BLOOD COUNT 2.73 10^6/uL (4.00-5.40); WHITE BLOOD COUNT 5.1 10^3/uL (4.0-10.0)
[2019-01-02 06:40] LABS: INR 1.11; PROTHROMBIN TIME 14.4 SECONDS (12.1-14.4)
[2019-01-02 06:41] LABS: PARTIAL THROMBOPLASTIN TIME 30.5 SECONDS (25.4-37.6)
[2019-01-02 06:49] LABS: CALCIUM LEVEL 7.5 MG/DL (8.8-10.2); CREATININE FOR GFR 10.2 MG/DL (0.55-1.30); POTASSIUM SERUM 4.2 MEQ/L (3.5-5.1)
[2019-01-02 07:01] LABS: PLATELET COUNT, AUTOMATED 85 10^3/uL (150-450)
[2019-01-02] MEDS: ALBUTEROL SULFATE 2.5 MG/0.5 ML INH NEB SOLN INH SCH ×4 (08:00→20:19)
[2019-01-02] MEDS: LEVOTHYROXINE 112MCG TABLET (0.112MG) PO SCH (08:21)
[2019-01-02] MEDS: FLUTICASONE PROP 0.05% NASAL SPRAY 16 GM (FLONASE) SCH (08:22)
[2019-01-02] MEDS ORDERED: METOPROLOL TART 50 MG TAB PO ONE (10:15)
[2019-01-02] MEDS ORDERED: LOSARTAN 50 MG TAB PO ONE (10:15)
[2019-01-02] MEDS: DICYCLOMINE 10 MG CAP PO SCH ×4 (10:49→20:28)
[2019-01-02 12:27] LABS: BASO % 0.5 % (0.0-1.0); EOS # 0.2 10^3/uL (0.0-0.50); EOS % 2.7 % (0.0-3.0); HEMATOCRIT 22.8 % (36.0-47.0); HEMOGLOBIN 7.9 g/dl (12.0-15.5); LYMPH # 1.1 10^3/uL (1.5-4.5); LYMPH % 18.4 % (24.0-44.0); MEAN CORPUSCULAR HEMOGLOBIN 29.9 pg (27.0-33.0); MEAN CORPUSCULAR HGB CONC 34.6 g/dl (32.0-36.5); MEAN CORPUSCULAR VOLUME 86.4 fl (80.0-96.0); MONO # 0.6 10^3/uL (0.0-0.8); MONO % 10.2 % (0.0-5.0); NEUTROPHILS % 67.7 % (36.0-66.0); RED BLOOD COUNT 2.64 10^6/uL (4.00-5.40); WHITE BLOOD COUNT 5.9 10^3/uL (4.0-10.0)
[2019-01-02 12:32] LABS: PLATELET COUNT, AUTOMATED 98 10^3/uL (150-450)
--- NOTE | 2019-01-02 12:37 | IPN ---
DATE OF VISIT: 01/02/2019 Ms. Jim is seen this morning on her bedside. She is in good spirits today and feels well. She underwent colonoscopy yesterday and a bleeding ulcer was found at the site of polyp removal from her cecum. Dr. Hernandez was able to put two clips in and bleeding has stopped. She did have a watery bowel movement this morning without any blood in it. She denies any dyspnea or chest pain. On physical exam, temperature 97.3 degrees Fahrenheit, heart rate 96 per minute and respiratory rate 16 per minute. Blood pressure 170/80. Oxygen saturations 100% on 4 liters oxygen. Head is atraumatic. There is no oral thrush or ulcers. Neck is supple and without jugular venous distention (JVD) or thyroid enlargement. Central line is present in left internal jugular vein. Heart sounds are regular and lungs sound clear to auscultation. Abdomen soft with minimal tenderness in left lower quadrant. Bowel sounds are normal. Extremities have no cyanosis or clubbing. Neurologically, she is at her baseline mentation. Today's labs show WBC count 5.1, hemoglobin 8.1 and hematocrit 24.1. Sodium 143, potassium 4.2, CO2 24, BUN 56 and creatinine 10.2. Calcium level is 7.5. PROBLEMS: 1. Acute gastrointestinal (GI) bleed. Patient had bright red blood and it was felt that her GI bleed was from colon. She had a colonoscopy done yesterday and Dr. Hernandez was able to secure the bleeder. She had a colonoscopy about a week prior to this admission and a polyp was removed, which was felt to be source of bleeding. Her anemia has improved and she required multiple transfusions. She is probably going to get one more units of packed red blood cells (RBCs) today. 2. Hypertension. All her antihypertensive meds have been on hold since admission due to acute GI bleed and low blood pressure. Blood pressure is high. I am going to resume some of her antihypertensives including losartan 100 mg daily and metoprolol 50 mg twice a day. Other medications will also be gradually resumed as needed. 3. Irritable bowel syndrome (IBS). Patient has history of IBS as and has been on dicyclomine. That is also being resumed with 20 mg four times a day. MTDD
--- NOTE | 2019-01-02 14:18 | IPNPDOC ---
Subjective Date Seen The patient was seen on 01/02/19. Subjective Chief Complaint/HPI Rectal bleeding Events since last encounter No further bloody stools overnight after colonoscopy , no crampy abdominal pain , nausea or vomiting. No fever or chills. Objective Physical Examination General Exam: Positive: Alert, Cooperative, No Acute Distress Eye Exam: Positive: PERRLA, Conjunctiva & lids normal ENT Exam: Positive: Atraumatic Chest Exam: Positive: Clear to auscultation, Normal air movement Heart Exam: Positive: Tachycardic, Normal S1, Normal S2 Telemetry: Positive: No significant arrhythmia Abdomen Exam: Positive: Soft; Negative: Tenderness Extremity Exam: Negative: Tenderness, Swelling Skin Exam: Positive: Nl turgor and temperature Neuro Exam: Positive: Normal Speech, Strength at 5/5 X4 ext Psych Exam: Positive: Oriented x 3 Assessment /Plan Assessment GIB Due to post polypectomy ulcer bleeding. s/p Colonoscopy on 12/24/18 with Polypectomy She is s/p 2 negative angiograms with Vascular Surgery received 5 units of PRBC. HH still below 8.0 will transfuse 1 unit today. Continue to monitor HH Acute Blood Loss Anemia due to above s/p Transfusion of 2 Units of FFP and Platelets, and 5 Units of PRBC's continue to monitor HH. End-stage renal disease on hemodialysis Nephrology on board History of diastolic congestive heart failure The patient does not appear to be decompensated at this time. History of hypothyroidism Continue levothyroxine intravenously History of COPD, stable Continue albuterol when necessary History of hypertension, stable Antihypertensive medication has been held as the patient's blood pressure has been stable, and given the concern for recurrent GI bleeding DVT prophylaxis TEDs/SCDs Plan/VTE VTE Prophylaxis Ordered?: Yes VTE Exclusion Pharmacological: Active Bleeding VS, I&O, 24H, Fishbone Vital Signs/I&O Vital Signs Date Time Temp Pulse Resp B/P (MAP) Pulse Ox O2 Delivery O2 Flow Rate FiO2 01/02/19 10:50 93 158/70 01/02/19 06:00 100 2.0 01/02/19 04:10 97.3 16 12/31/18 14:10 Room Air I&O- Last 24 Hours up to 6 AM 01/02/19 06:00 Intake Total 2067 ml Output Total 0 ml Balance 2067 ml Laboratory Data 24H LABS Laboratory Tests 2 01/01/19 17:37: Immature Granulocyte % (Auto) 0.4, White Blood Count 7.3, Red Blood Count 2.89L, Hemoglobin 8.6L, Hematocrit 25.6L, Mean Corpuscular Volume 88.6, Mean Corpuscular Hemoglobin 29.8, Mean Corpuscular Hemoglobin Concent 33.6, Red Cell Distribution Width 14.5, Platelet Count 131L, Neutrophils (%) (Auto) 67.3H, Lymphocytes (%) (Auto) 19.9L, Monocytes (%) (Auto) 10.5H, Eosinophils (%) (Auto) 1.5, Basophils (%) (Auto) 0.4, Neutrophils # (Auto) 4.9, Lymphocytes # (Auto) 1.4L, Monocytes # (Auto) 0.8, Eosinophils # (Auto) 0.1, Basophils # (Auto) 0.0, Nucleated Red Blood Cells % (auto) 0.0, Prothrombin Time 14.9H, Prothromb Time International Ratio 1.15, Activated Partial Thromboplast Time 28.2 01/02/19 00:03: Immature Granulocyte % (Auto) 0.5, White Blood Count 5.8, Red Blood Count 2.48L, Hemoglobin 7.6L, Hematocrit 22.2L, Mean Corpuscular Volume 89.5, Mean Corpuscular Hemoglobin 30.6, Mean Corpuscular Hemoglobin Concent 34.2, Red Cell Distribution Width 14.8H, Platelet Count 115L, Neutrophils (%) (Auto) 66.3H, Lymphocytes (%) (Auto) 19.1L, Monocytes (%) (Auto) 11.9H, Eosinophils (%) (Auto) 1.7, Basophils (%) (Auto) 0.5, Neutrophils # (Auto) 3.8, Lymphocytes # (Auto) 1.1L, Monocytes # (Auto) 0.7, Eosinophils # (Auto) 0.1, Basophils # (Auto) 0.0, Nucleated Red Blood Cells % (auto) 0.0, Prothrombin Time 14.4, Prothromb Time International Ratio 1.10, Activated Partial Thromboplast Time 24.6L 01/02/19 01:37: Bedside Glucose (Misc Panel) 103 01/02/19 05:54: Immature Granulocyte % (Auto) 0.8, White Blood Count 5.1, Red Blood Count 2.73L, Hemoglobin 8.1L, Hematocrit 24.1L, Mean Corpuscular Volume 88.3, Mean Corpuscular Hemoglobin 29.7, Mean Corpuscular Hemoglobin Concent 33.6, Red Cell Distribution Width 15.5H, Platelet Count 85L, Neutrophils (%) (Auto) 61.7, Lymphocytes (%) (Auto) 21.4L, Monocytes (%) (Auto) 12.7H, Eosinophils (%) (Auto) 2.8, Basophils (%) (Auto) 0.6, Neutrophils # (Auto) 3.1, Lymphocytes # (Auto) 1.1L, Monocytes # (Auto) 0.6, Eosinophils # (Auto) 0.1, Basophils # (Auto) 0.0, Nucleated Red Blood Cells % (auto) 0.0, Prothrombin Time 14.4, Prothromb Time International Ratio 1.11, Activated Partial Thromboplast Time 30.5, Immature Platelet Fraction 1.8, Anion Gap 11, Glomerular Filtration Rate 4.0L, Blood Urea Nitrogen 56H, Creatinine 10.20*H, Sodium Level 143, Potassium Level 4.2, Chloride Level 108H, Carbon Dioxide Level 24, Calcium Level 7.5L 01/02/19 12:15: Immature Granulocyte % (Auto) 0.5, White Blood Count 5.9, Red Blood Count 2.64L, Hemoglobin 7.9L, Hematocrit 22.8L, Mean Corpuscular Volume 86.4, Mean Corpuscular Hemoglobin 29.9, Mean Corpuscular Hemoglobin Concent 34.6, Red Cell Distribution Width 15.9H, Platelet Count 98L, Neutrophils (%) (Auto) 67.7H, Lymphocytes (%) (Auto) 18.4L, Monocytes (%) (Auto) 10.2H, Eosinophils (%) (Auto) 2.7, Basophils (%) (Auto) 0.5, Neutrophils # (Auto) 4.0, Lymphocytes # (Auto) 1.1L, Monocytes # (Auto) 0.6, Eosinophils # (Auto) 0.2, Basophils # (Auto) 0.0, Nucleated Red Blood Cells % (auto) 0.0 CBC/BMP Laboratory Tests 01/01/19 17:37 Red Blood Count 2.89 L, Mean Corpuscular Volume 88.6, Mean Corpuscular Hemoglobin 29.8, Mean Corpuscular Hemoglobin Concent 33.6, Red Cell Distribution Width 14.5, Neutrophils (%) (Auto) 67.3 H, Lymphocytes (%) (Auto) 19.9 L, Monocy nelli (%) (Auto) 10.5 H, Eosinophils (%) (Auto) 1.5, Basophils (%) (Auto) 0.4, Neutrophils # (Auto) 4.9, Lymphocytes # (Auto) 1.4 L, Monocytes # (Auto) 0.8, Eosinophils # (Auto) 0.1, Basophils # (Auto) 0.0 01/02/19 00:03 Red Blood Count 2.48 L, Mean Corpuscular Volume 89.5, Mean Corpuscular Hemoglobin 30.6, Mean Corpuscular Hemoglobin Concent 34.2, Red Cell Distribution Width 14.8 H, Neutrophils (%) (Auto) 66.3 H, Lymphocytes (%) (Auto) 19.1 L, Monocytes (%) (Auto) 11.9 H, Eosinophils (%) (Auto) 1.7, Basophils (%) (Auto) 0.5, Neutrophils # (Auto) 3.8, Lymphocytes # (Auto) 1.1 L, Monocytes # (Auto) 0.7, Eosinophils # (Auto) 0.1, Basophils # (Auto) 0.0 01/02/19 05:54 Red Blood Count 2.73 L, Mean Corpuscular Volume 88.3, Mean Corpuscular Hemoglobin 29.7, Mean Corpuscular Hemoglobin Concent 33.6, Red Cell Distribution Width 15.5 H, Neutrophils (%) (Auto) 61.7, Lymphocytes (%) (Auto) 21.4 L, Monocytes (%) (Auto) 12.7 H, Eosinophils (%) (Auto) 2.8, Basophils (%) (Auto) 0.6, Neutrophils # (Auto) 3.1, Lymphocytes # (Auto) 1.1 L, Monocytes # (Auto) 0.6, Eosinophils # (Auto) 0.1, Basophils # (Auto) 0.0, Calcium Level 7.5 L 01/02/19 12:15 Red Blood Count 2.64 L, Mean Corpuscular Volume 86.4, Mean Corpuscular Hemoglobin 29.9, Mean Corpuscular Hemoglobin Concent 34.6, Red Cell Distribution Width 15.9 H, Neutrophils (%) (Auto) 67.7 H, Lymphocytes (%) (Auto) 18.4 L, Monocytes (%) (Auto) 10.2 H, Eosinophils (%) (Auto) 2.7, Basophils (%) (Auto) 0.5, Neutrophils # (Auto) 4.0, Lymphocytes # (Auto) 1.1 L, Monocytes # (Auto) 0.6, Eosinophils # (Auto) 0.2, Basophils # (Auto) 0.0 TERRI ALBA MD Jan 02, 2019 14:18
[2019-01-02] MEDS: METOPROLOL TART 50 MG TAB PO SCH (20:28)
[2019-01-02 20:31] LABS: BASO % 0.4 % (0.0-1.0); EOS # 0.1 10^3/uL (0.0-0.50); EOS % 2.4 % (0.0-3.0); HEMATOCRIT 30.5 % (36.0-47.0); MEAN CORPUSCULAR HEMOGLOBIN 29.8 pg (27.0-33.0); MEAN CORPUSCULAR HGB CONC 34.4 g/dl (32.0-36.5); MEAN CORPUSCULAR VOLUME 86.6 fl (80.0-96.0); MONO # 0.6 10^3/uL (0.0-0.8); MONO % 10.4 % (0.0-5.0); NEUTROPHILS # 3.7 10^3/uL (1.8-7.7); NEUTROPHILS % 67.3 % (36.0-66.0); RED BLOOD COUNT 3.52 10^6/uL (4.00-5.40); WHITE BLOOD COUNT 5.5 10^3/uL (4.0-10.0)
[2019-01-02 20:36] LABS: HEMOGLOBIN 10.5 g/dl (12.0-15.5); PLATELET COUNT, AUTOMATED 87 10^3/uL (150-450)
[2019-01-03] VITALS (11 sets, daily range): BP systolic 96–151; BP diastolic 53–70
[2019-01-03] MEDS: LEVOTHYROXINE 112MCG TABLET (0.112MG) PO SCH (05:00)
[2019-01-03 05:10] LABS: HEMATOCRIT 27.5 % (36.0-47.0); HEMOGLOBIN 9.2 g/dl (12.0-15.5); MEAN CORPUSCULAR HEMOGLOBIN 29.3 pg (27.0-33.0); MEAN CORPUSCULAR HGB CONC 33.5 g/dl (32.0-36.5); MEAN CORPUSCULAR VOLUME 87.6 fl (80.0-96.0); RED BLOOD COUNT 3.14 10^6/uL (4.00-5.40); WHITE BLOOD COUNT 4.7 10^3/uL (4.0-10.0)
[2019-01-03 05:12] LABS: PLATELET COUNT, AUTOMATED 70 10^3/uL (150-450)
[2019-01-03 05:33] LABS: CALCIUM LEVEL 7.6 MG/DL (8.8-10.2); CREATININE FOR GFR 5.33 MG/DL (0.55-1.30); GLOMERULAR FILTRATION RATE 8.5 (>45); POTASSIUM SERUM 3.9 MEQ/L (3.5-5.1)
[2019-01-03] MEDS: DICYCLOMINE 10 MG CAP PO SCH ×4 (08:57→21:38)
[2019-01-03] MEDS: METOPROLOL TART 50 MG TAB PO SCH ×2 (08:58→21:38)
[2019-01-03] MEDS: LOSARTAN 50 MG TAB PO SCH (08:58)
[2019-01-03] MEDS: FLUTICASONE PROP 0.05% NASAL SPRAY 16 GM (FLONASE) SCH (09:00)
[2019-01-03] MEDS: ALBUTEROL SULFATE 2.5 MG/0.5 ML INH NEB SOLN INH SCH ×4 (09:06→20:28)
[2019-01-03] MEDS: ONDANSETRON 4MG/2ML VIAL (J2405) IV PRN (10:22)
--- NOTE | 2019-01-03 12:32 | IPN ---
DATE OF VISIT: 01/03/2019 Mrs. Jim is seen this morning on her bedside. She is feeling much better and denies any more rectal bleeding. She reports that she did have two liquid stools yesterday but no blood. She denies any nausea, vomiting, dyspnea or chest pain. Her arterial line has been removed. On physical exam, temperature 98.6 degrees Fahrenheit, heart rate 78 per minute and respiratory rate 18 per minute. Blood pressure 143/65 mmHg and oxygen saturation 98% on 2 liters oxygen. Head is atraumatic. Neck is supple and without jugular venous distention (JVD) or thyroid enlargement. Her left-sided central line is in place. Heart sounds are regular and lungs clear to auscultation. Abdomen soft and nontender. Bowel sounds are normal. Extremities have no cyanosis or clubbing. Neurologically, she is awake and at her baseline mentation without a focal deficit. Today's labs show WBC count 4.7, hemoglobin 9.2 and hematocrit 27.5. Sodium 146, potassium 3.9, BUN 29 and creatinine 5.33. PROBLEMS: 1. End-stage renal disease. Patient was dialyzed yesterday and we will plan to dialyze her again tomorrow. Her regular dialysis days are Sunday, Sunday and Sunday and she will be switched to regular days next week. 2. Acute blood loss anemia. She had rectal bleeding with significant blood loss and has required multiple transfusions. She is not bleeding anymore since the bleeder was clipped a couple of days ago. At this point, there is no emergent need for transfusion. 3. Hypertension. Blood pressure is well-controlled on current antihypertensive meds and we will continue to monitor closely and adjust her medications as needed. Prior to admission, she was on much higher dose of antihypertensives and now she is still not on all of her meds. We will adjust as needed.
--- NOTE | 2019-01-03 13:05 | IPNPDOC ---
Subjective Date Seen The patient was seen on 01/03/19. Subjective Chief Complaint/HPI bleeding per rectum Events since last encounter No further bloody stools no crampy abdominal pain , nausea or vomiting. No fever or chills. Objective Physical Examination General Exam: Positive: Alert, Cooperative, No Acute Distress Eye Exam: Positive: PERRLA, Conjunctiva & lids normal ENT Exam: Positive: Atraumatic Chest Exam: Positive: Clear to auscultation, Normal air movement Heart Exam: Positive: Tachycardic, Normal S1, Normal S2 Abdomen Exam: Positive: Soft; Negative: Tenderness Extremity Exam: Negative: Tenderness, Swelling Skin Exam: Positive: Nl turgor and temperature Neuro Exam: Positive: Normal Speech, Strength at 5/5 X4 ext Psych Exam: Positive: Oriented x 3 Assessment /Plan Assessment GIB Due to post polypectomy ulcer bleeding. s/p Colonoscopy on 12/24/18 with Polypectomy She is s/p 2 negative angiograms with Vascular Surgery received 7 units of PRBC. HH stable Acute Blood Loss Anemia due to above s/p Transfusion of 2 Units of FFP and Platelets, and 5 Units of PRBC's continue to monitor HH. End-stage renal disease on hemodialysis Nephrology on board History of diastolic congestive heart failure The patient does not appear to be decompensated at this time. History of hypothyroidism Continue levothyroxine intravenously History of COPD, stable Continue albuterol when necessary History of hypertension, stable Antihypertensive medication has been held as the patient's blood pressure has been stable, and given the concern for recurrent GI bleeding DVT prophylaxis TEDs/SCDs Plan/VTE VTE Prophylaxis Ordered?: Yes VTE Exclusion Pharmacological: Active Bleeding VS, I&O, 24H, Fishbone Vital Signs/I&O Vital Signs Date Time Temp Pulse Resp B/P (MAP) Pulse Ox O2 Delivery O2 Flow Rate FiO2 01/03/19 08:58 135/61 01/03/19 06:00 77 01/03/19 04:00 2.0 01/03/19 04:00 98.6 16 99 01/02/19 20:19 Nasal Cannula I&O- Last 24 Hours up to 6 AM 01/03/19 06:00 Intake Total 1190 ml Output Total 2000 ml Balance -810 ml Laboratory Data 24H LABS Laboratory Tests 2 01/02/19 20:08: Immature Granulocyte % (Auto) 0.5, White Blood Count 5.5, Red Blood Count 3.52L, Hemoglobin 10.5#L, Hematocrit 30.5L, Mean Corpuscular Volume 86.6, Mean Corpuscular Hemoglobin 29.8, Mean Corpuscular Hemoglobin Concent 34.4, Red Cell Distribution Width 15.2H, Platelet Count 87L, Neutrophils (%) (Auto) 67.3H, Lymphocytes (%) (Auto) 19.0L, Monocytes (%) (Auto) 10.4H, Eosinophils (%) (Auto) 2.4, Basophils (%) (Auto) 0.4, Neutrophils # (Auto) 3.7, Lymphocytes # (Auto) 1.0L, Monocytes # (Auto) 0.6, Eosinophils # (Auto) 0.1, Basophils # (Auto) 0.0, Nucleated Red Blood Cells % (auto) 0.0 01/03/19 04:57: Nucleated Red Blood Cells % (auto) 0.0, Anion Gap 7L, Glomerular Filtration Rate 8.5L, Blood Urea Nitrogen 29H, Creatinine 5.33H, Sodium Level 146H, Potassium Level 3.9, Chloride Level 110H, Carbon Dioxide Level 29, Calcium Level 7.6L CBC/BMP Laboratory Tests 01/02/19 20:08 Red Blood Count 3.52 L, Mean Corpuscular Volume 86.6, Mean Corpuscular Hemoglobin 29.8, Mean Corpuscular Hemoglobin Concent 34.4, Red Cell Distribution Width 15.2 H, Neutrophils (%) (Auto) 67.3 H, Lymphocytes (%) (Auto) 19.0 L, Monocytes (%) (Auto) 10.4 H, Eosinophils (%) (Auto) 2.4, Basophils (%) (Auto) 0.4, Neutrophils # (Auto) 3.7, Lymphocytes # (Auto) 1.0 L, Monocytes # (Auto) 0.6, Eosinophils # (Auto) 0.1, Basophils # (Auto) 0.0 01/03/19 04:57 Red Blood Count 3.14 L, Mean Corpuscular Volume 87.6, Mean Corpuscular Hemoglobin 29.3, Mean Corpuscular Hemoglobin Concent 33.5, Red Cell Distribution Width 15.7 H, Calcium Level 7.6 L TERRI ALBA MD Jan 03, 2019 13:05
[2019-01-04 06:00] VITALS: BP 155/70
[2019-01-04] MEDS: DICYCLOMINE 10 MG CAP PO SCH ×4 (06:32→21:00)
[2019-01-04] MEDS: LEVOTHYROXINE 112MCG TABLET (0.112MG) PO SCH (06:32)
[2019-01-04] MEDS: METOPROLOL TART 50 MG TAB PO SCH ×2 (06:33→20:59)
[2019-01-04] MEDS: LOSARTAN 50 MG TAB PO SCH (06:33)
[2019-01-04] MEDS: FLUTICASONE PROP 0.05% NASAL SPRAY 16 GM (FLONASE) SCH (06:34)
[2019-01-04 06:56] LABS: HEMATOCRIT 27.5 % (36.0-47.0); MEAN CORPUSCULAR HEMOGLOBIN 29.3 pg (27.0-33.0); MEAN CORPUSCULAR HGB CONC 32.7 g/dl (32.0-36.5); MEAN CORPUSCULAR VOLUME 89.6 fl (80.0-96.0); RED BLOOD COUNT 3.07 10^6/uL (4.00-5.40); WHITE BLOOD COUNT 4.6 10^3/uL (4.0-10.0)
[2019-01-04 06:59] LABS: PLATELET COUNT, AUTOMATED 71 10^3/uL (150-450)
[2019-01-04 07:14] LABS: CALCIUM LEVEL 7.6 MG/DL (8.8-10.2); CREATININE FOR GFR 7.75 MG/DL (0.55-1.30); GLOMERULAR FILTRATION RATE 5.5 (>45); POTASSIUM SERUM 3.8 MEQ/L (3.5-5.1)
[2019-01-04] MEDS: ALBUTEROL SULFATE 2.5 MG/0.5 ML INH NEB SOLN INH SCH ×4 (09:49→19:05)
--- NOTE | 2019-01-04 15:04 | IPNPDOC ---
Subjective Date Seen The patient was seen on 01/04/19. Subjective Chief Complaint/HPI Blleding per rectum Events since last encounter No complaints this morning. going for hd today Objective Physical Examination General Exam: Positive: Alert, Cooperative, No Acute Distress Eye Exam: Positive: PERRLA, Conjunctiva & lids normal ENT Exam: Positive: Atraumatic Chest Exam: Positive: Clear to auscultation, Normal air movement Heart Exam: Positive: Tachycardic, Normal S1, Normal S2 Abdomen Exam: Positive: Soft; Negative: Tenderness Extremity Exam: Negative: Tenderness, Swelling Skin Exam: Positive: Nl turgor and temperature Neuro Exam: Positive: Normal Speech, Strength at 5/5 X4 ext Psych Exam: Positive: Oriented x 3 Assessment /Plan Assessment Due to post polypectomy ulcer bleeding. s/p Colonoscopy on 12/24/18 with Polypectomy She is s/p 2 negative angiograms with Vascular Surgery received 7 units of PRBC. HH stable Acute Blood Loss Anemia due to above s/p Transfusion of 2 Units of FFP and Platelets, and 5 Units of PRBC's continue to monitor HH. End-stage renal disease on hemodialysis Nephrology on board History of diastolic congestive heart failure The patient does not appear to be decompensated at this time. History of hypothyroidism Continue levothyroxine intravenously History of COPD, stable Continue albuterol when necessary History of hypertension, stable Antihypertensive medication has been held as the patient's blood pressure has been stable, and given the concern for recurrent GI bleeding DVT prophylaxis TEDs/SCDs Plan/VTE VTE Prophylaxis Ordered?: Yes VTE Exclusion Pharmacological: Active Bleeding VS, I&O, 24H, [facility] Vital Signs/I&O Vital Signs Date Time Temp Pulse Resp B/P (MAP) Pulse Ox O2 Delivery O2 Flow Rate FiO2 01/04/19 06:33 70 01/04/19 06:33 155/70 01/04/19 06:00 98.1 15 98 01/03/19 04:00 2.0 01/02/19 20:19 Nasal Cannula I&O- Last 24 Hours up to 6 AM 01/04/19 06:00 Intake Total 560 ml Output Total 0 ml Balance 560 ml Laboratory Data 24H LABS Laboratory Tests 2 01/04/19 06:12: Nucleated Red Blood Cells % (auto) 0.0, Immature Platelet Fraction 2.1, Anion Gap 8, Glomerular Filtration Rate 5.5L, Blood Urea Nitrogen 42H, Creatinine 7.75H, Sodium Level 142, Potassium Level 3.8, Chloride Level 107, Carbon Dioxide Level 27, Calcium Level 7.6L CBC/BMP Laboratory Tests 01/04/19 06:12 Red Blood Count 3.07 L, Mean Corpuscular Volume 89.6, Mean Corpuscular Hemoglobin 29.3, Mean Corpuscular Hemoglobin Concent 32.7, Red Cell Distribution Width 15.5 H, Calcium Level 7.6 L TERRI ALBA MD Jan 04, 2019 15:04
[2019-01-04 17:21] VITALS: BP 154/71
[2019-01-04] MEDS: ACETAMINOPHEN TAB 650MG DOSE (2X325MG) PO PRN (20:58)
[2019-01-04 22:00] VITALS: BP 142/68
[2019-01-05] MEDS: LEVOTHYROXINE 112MCG TABLET (0.112MG) PO SCH (05:26)
[2019-01-05 06:00] VITALS: BP 155/69
[2019-01-05] MEDS: ALBUTEROL SULFATE 2.5 MG/0.5 ML INH NEB SOLN INH SCH ×4 (06:22→18:30)
[2019-01-05 06:34] LABS: HEMATOCRIT 29.2 % (36.0-47.0); HEMOGLOBIN 9.5 g/dl (12.0-15.5); MEAN CORPUSCULAR HEMOGLOBIN 29.2 pg (27.0-33.0); MEAN CORPUSCULAR HGB CONC 32.5 g/dl (32.0-36.5); MEAN CORPUSCULAR VOLUME 89.8 fl (80.0-96.0); RED BLOOD COUNT 3.25 10^6/uL (4.00-5.40)
[2019-01-05 06:43] LABS: PLATELET COUNT, AUTOMATED 77 10^3/uL (150-450)
[2019-01-05 07:08] LABS: CALCIUM LEVEL 7.9 MG/DL (8.8-10.2); CREATININE FOR GFR 5.75 MG/DL (0.55-1.30); GLOMERULAR FILTRATION RATE 7.8 (>45)
[2019-01-05] MEDS: LOSARTAN 50 MG TAB PO SCH (08:48)
[2019-01-05] MEDS: DICYCLOMINE 10 MG CAP PO SCH ×4 (08:49→20:40)
[2019-01-05] MEDS: FLUTICASONE PROP 0.05% NASAL SPRAY 16 GM (FLONASE) SCH (08:49)
[2019-01-05] MEDS: METOPROLOL TART 50 MG TAB PO SCH ×2 (08:49→20:40)
[2019-01-05] MEDS ORDERED: BISACODYL 10 MG SUPP PR ONE (11:00)
--- NOTE | 2019-01-05 13:12 | IPN ---
DATE OF SERVICE: 01/04/2019 SUBJECTIVE: The patient was seen and examined at the bedside today morning. The patient is afebrile, hemodynamically stable. She reports that she is feeling much better now. Left internal jugular (vein) (IJ) triple lumen catheter has been removed. Today is the patient's regular day of dialysis. OBJECTIVE: Vital signs: Temperature is 98.1 degrees Fahrenheit, blood pressure 155/70, pulse is 70, respiratory rate of 14, saturating 97% on room air. Intake and output: Urine output is not recorded. Weight in the bed scale was 58.7 kg yesterday. PHYSICAL EXAMINATION: General: The patient is awake, alert, oriented times three lying in bed, no apparent distress. Head and neck examination: Extraocular muscles intact. Pupils equally round and reactive to light Mucous membranes are moist. Neck is supple. There is no jugular venous distention (JVD). Cardiovascular: S1, S2, regular rate. No edema of the bilateral lower extremities. Respiratory: Chest is clear to auscultation bilaterally. Bilateral equal air entry. No rales or rhonchi. Abdomen: Is soft, positive bowel sounds, nontender, no organomegaly. Musculoskeletal: No clubbing or cyanosis. Pulses are 2+. Central nervous system (DICTAPHONE TECHNICIAN): Power is 5/5 in all extremities. There is no focal deficit. Arteriovenous (AV) access: She has a right upper arm AV fistula, which has positive thrill and bruit. LABORATORY REVIEW: Complete blood count (CBC) showed WBC 4.6, hemoglobin is 9, platelets are 71. Basic metabolic profile (BMP) showed sodium 142, potassium 3.8, chloride 107, bicarbonate 27, BUN 42, creatinine is 7.7. CURRENT INPATIENT MEDICATIONS: The patient's medications were all reviewed by me. There is no change in the medications today as compared with yesterday. ASSESSMENT AND PLAN: 1. End-stage renal disease, on hemodialysis. The patient is regularly dialyzed Sunday, Sunday, Sunday as outpatient. However, in the hospital, she will be dialyzed today; and from next week onwards, she will be scheduled back to Sunday, Sunday, Sunday schedule. 2. Acute blood loss anemia. Her bleeding has stopped. Hemoglobin is optimal at 9. No need of a blood transfusion. 3. Hypertension with end-stage renal disease. Continue current dose of losartan and metoprolol.
[2019-01-05 14:00] VITALS: BP 160/73
--- NOTE | 2019-01-05 14:54 | IPNPDOC ---
Subjective Date Seen The patient was seen on 01/05/19. Subjective Chief Complaint/HPI GIB Events since last encounter Complains of not having any bowel movements for the past 2 days. Otherwise no other complaints. Objective Physical Examination General Exam: Positive: Alert, Cooperative, No Acute Distress Eye Exam: Positive: PERRLA, Conjunctiva & lids normal ENT Exam: Positive: Atraumatic Chest Exam: Positive: Clear to auscultation, Normal air movement Heart Exam: Positive: Tachycardic, Normal S1, Normal S2 Abdomen Exam: Positive: Soft; Negative: Tenderness Extremity Exam: Negative: Tenderness, Swelling Skin Exam: Positive: Nl turgor and temperature Neuro Exam: Positive: Normal Speech, Strength at 5/5 X4 ext Psych Exam: Positive: Oriented x 3 Assessment /Plan Assessment Due to post polypectomy ulcer bleeding. s/p Colonoscopy on 12/24/18 with Polypectomy She is s/p 2 negative angiograms with Vascular Surgery received 7 units of PRBC. 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 History of hypothyroidism Continue levothyroxine intravenously History of COPD, stable Continue albuterol when necessary History of hypertension, stable Had hypotension on admission Now only on losartan and metoprolol hydralazine, clonidine and amlodipine still not restarted. History of severe osteoporosis status post osteoplasty of her vertebra History of colon polyps status post polypectomy 12/24/2018, Pathology shows tubular adenomas History of obstructive sleep apnea, History of cauda equina syndrome status post laminectomy. DVT prophylaxis TEDs/SCDs Disposition: To assisted living within the next 24 hours. Plan/VTE VTE Prophylaxis Ordered?: Yes VTE Exclusion Pharmacological: Active Bleeding VS, I&O, 24H, Fishbone Vital Signs/I&O Vital Signs Date Time Temp Pulse Resp B/P (MAP) Pulse Ox O2 Delivery O2 Flow Rate FiO2 01/05/19 08:49 85 141/81 01/05/19 06:00 97.8 17 99 2.0 01/02/19 20:19 Nasal Cannula I&O- Last 24 Hours up to 6 AM 01/05/19 05:59 Intake Total 655 ml Output Total 2500 ml Balance -1845 ml Laboratory Data 24H LABS Laboratory Tests 2 01/05/19 05:48: Nucleated Red Blood Cells % (auto) 0.0, Anion Gap 7L, Glomerular Filtration Rate 7.8L, Blood Urea Nitrogen 30H, Creatinine 5.75H, Sodium Level 142, Potassium Level 4.0, Chloride Level 105, Carbon Dioxide Level 30, Calcium Level 7.9L CBC/BMP Laboratory Tests 01/05/19 05:48 Red Blood Count 3.25 L, Mean Corpuscular Volume 89.8, Mean Corpuscular Hemoglobi n 29.2, Mean Corpuscular Hemoglobin Concent 32.5, Red Cell Distribution Width 14.6 H, Calcium Level 7.9 L TERRI ALBA MD Jan 05, 2019 14:54
[2019-01-05 22:00] VITALS: BP 125/58
[2019-01-06] MEDS: LEVOTHYROXINE 112MCG TABLET (0.112MG) PO SCH (05:26)
[2019-01-06] MEDS: ACETAMINOPHEN TAB 650MG DOSE (2X325MG) PO PRN (05:28)
[2019-01-06 06:00] VITALS: BP 158/74
[2019-01-06 06:58] LABS: HEMATOCRIT 29.1 % (36.0-47.0); HEMOGLOBIN 9.6 g/dl (12.0-15.5); MEAN CORPUSCULAR HEMOGLOBIN 29.1 pg (27.0-33.0); MEAN CORPUSCULAR VOLUME 88.2 fl (80.0-96.0); PLATELET COUNT, AUTOMATED 109 10^3/uL (150-450); WHITE BLOOD COUNT 5.3 10^3/uL (4.0-10.0)
[2019-01-06] MEDS: ALBUTEROL SULFATE 2.5 MG/0.5 ML INH NEB SOLN INH SCH (08:04)
[2019-01-06 08:18] LABS: CALCIUM LEVEL 8.1 MG/DL (8.8-10.2); CREATININE FOR GFR 8.18 MG/DL (0.55-1.30); GLOMERULAR FILTRATION RATE 5.2 (>45); POTASSIUM SERUM 3.8 MEQ/L (3.5-5.1)
[2019-01-06 08:53] VITALS: BP 160/74
[2019-01-06] MEDS: LOSARTAN 50 MG TAB PO SCH (08:53)
[2019-01-06] MEDS: DICYCLOMINE 10 MG CAP PO SCH ×2 (08:53→12:35)
[2019-01-06] MEDS: METOPROLOL TART 50 MG TAB PO SCH (08:54)
[2019-01-06] MEDS: FLUTICASONE PROP 0.05% NASAL SPRAY 16 GM (FLONASE) SCH (08:55)
--- NOTE | 2019-01-06 09:44 | IPN ---
DATE OF SERVICE: 01/05/2019 SUBJECTIVE: The patient was seen and examined at the bedside today morning. The patient is afebrile, hemodynamically stable. The patient reports that she was constipated. She was given medicine today for constipation. Otherwise, she is getting ready to be discharged today. She was dialyzed yesterday, and 2.5 liters of fluid was removed. OBJECTIVE: Vital signs: Temperature is 98.7 degrees Fahrenheit, blood pressure 160/73, pulse is 74, respiratory rate of 20, saturating 98% on room air. Intake and output: There is no urine output recorded. Ultrafiltration during hemodialysis was 2.5 liters yesterday. Bed scale weight is not available. PHYSICAL EXAMINATION: General: The patient is awake, alert, oriented times three, sitting up in the bed, no apparent distress. Head and neck examination: Extraocular muscles intact. Pupils equally round and reactive to light. Mucous membranes are moist. Neck is supple. There is no jugular venous distention (JVD). Cardiovascular: S1, S2, regular rate. No edema of the bilateral lower extremities. Respiratory: Chest is clear to auscultation bilaterally. Bilateral equal air entry. No rales or rhonchi. Abdomen: Is soft, positive bowel sounds, nontender, no organomegaly. Musculoskeletal: No clubbing or cyanosis. Pulses are 2+. Central nervous system (SUPERVISOR CELL MAINTENANCE): Power is 5/5 in all extremities. There is no focal deficit. LABORATORY REVIEW: Complete blood count (CBC) showed WBC 6, hemoglobin is 9.5, platelets are 77. Basic metabolic profile (BMP) showed sodium 142, potassium is 4, chloride 105, bicarbonate 30, BUN 30, creatinine is 5.7, calcium 7.9. CURRENT INPATIENT MEDICATIONS: The patient's medications were all reviewed by me. There is no change in the medications today as compared with yesterday. ASSESSMENT AND PLAN: 1. End-stage renal disease, on hemodialysis. The patient's regular dialysis days are Sunday, Sunday, Sunday. She will be dialyzed tomorrow as outpatient. 2. Hypertension. Blood pressure is acceptable with current dose of losartan and metoprolol. 3. Constipation. The patient was given Dulcolax suppository, and she reports that she is having bowel movements now. 4. Acute blood loss anemia. Hemoglobin is stable at this point at 9.5. Anemia management will be done as outpatient. DISPOSITION: The patient is optimized from nephrology standpoint to be discharged home.
--- NOTE | 2019-01-06 13:05 | IPN ---
DATE OF SERVICE: 01/06/2019 SUBJECTIVE: The patient was seen and examined at the bedside today morning. She is afebrile, hemodynamically stable. She denies anymore GI bleeding. Today is patient's regular day of dialysis. She reports that she is getting ready to be discharged back to the [facility] today. OBJECTIVE: Vital signs: Temperature is 97.3 degrees Fahrenheit, blood pressure 160/74, pulse is 78, respiratory rate of 18, saturating 95% on room air. Intake and output: Urine output recorded is 240 mL. Weight in the bed scale is not available. PHYSICAL EXAMINATION: General: The patient is awake, alert, oriented times three, sitting up in the bed, no apparent distress. Head and neck examination: Extraocular muscles intact. Pupils equally round and reactive to light. Mucous membranes are moist. Neck is supple. There is no jugular venous distention (JVD). Cardiovascular: S1, S2, regular rate. No edema of the bilateral lower extremities. Respiratory: Chest is clear to auscultation bilaterally. Bilateral equal air entry. Abdomen: Is soft, positive bowel sounds, nontender, no organomegaly. Musculoskeletal: No clubbing or cyanosis. Pulses are 2+. Central nervous system (MEDICAL INSTRUCTOR): No focal deficit. Power is 5/5 in all extremities. LABORATORY REVIEW: Complete blood count (CBC) showed a WBC of 5.3, hemoglobin is 9.6, platelets of 109. Basic metabolic profile (BMP) showed sodium 139, potassium 3.8, creatinine is 8.1. CURRENT INPATIENT MEDICATIONS: The patient's medications were all reviewed by me. There is no change in the medications today as compared with yesterday. ASSESSMENT AND PLAN: 1. End-stage renal disease, on hemodialysis. The patient's regular dialysis days are Sunday, Sunday, Sunday. She is being discharged today. There is an open chair available at 4:30 p.m. at outpatient dialysis center. 2. Hypertension. Continue current dose of losartan and metoprolol. DISPOSITION: It is okay to discharge the patient from a nephrology standpoint. Today she will be dialyzed today as outpatient in the afternoon.
--- NOTE | 2019-01-06 16:01 | DS.PDOC ---
Discharge Summary General Date of Admission Dec 31, 2018 at 17:12 Date of Discharge 01/06/2019 Primary Care Physician: Altagracia Herrear Attending Physician: FLORINA AMARO MD Specialist/Consultants Involve: Sameer Pizano Discharge Summary PROCEDURES PERFORMED DURING STAY: Colonoscopy with hemostatic clip placement. Mesenteric angiogram with iliofemoral angiography ADMITTING DIAGNOSES: 1. Hypotension/Hypovolemic shock 2/2 Lower GI bleed DISCHARGE DIAGNOSES: 1. Acute blood loss anemia 2/2 to lower GI bleed 2. ESRD on HD COMPLICATIONS/CHIEF COMPLAINT: Hypotension,Lower Gi Bleeding. HISTORY OF PRESENT ILLNESS: Patient is a 68 year old female with a past medical history significant for lower GI bleed, diverticulosis, irritable bowel syndrome, history of colonic polyps s/p polypectomy December 24 2018 who presented to the [facility] ER after multiple episodes of bloody stool. She had stated that she went to the bathroom and had noticed that her bowel movement was blood. At the time she remained asymptomatic. She continued to have multiple episodes until she became alarmed with the volume of blood and decided to be seen in the ER. In the ER the patient received IV fluids. She had a central line catheter placed and was started on Levophed. She was subsequently transferred to the ICU for further management. At the time of admission the patient was largely asymptomatic. HOSPITAL COURSE: Once admitted to the hospital, the patient was seen by Dr. Raymundo of Vascular surgery for angiography to assess for the cause of bleeding. No site was identified at the time. Patient continued to have multiple bloody bowel movements with passage of clots while in the ICU. She remained asymmptomatic however was transfused with PRBCs, FFP, and platlets. The patient received a colonoscopy from general surgery which identifed the site of bleeding from an ulceration where she had her polypectomy on December 24. Hemostatic clips were placed. In total, the patient received a total of eight units PRBCs, two units FFP, and 2 units of platelets. Patients bloody bowel movements had stopped at that point in time and the patient remained stable for the rest of her hospital stay. Her hemoglobin remained stable and the patient was found fit for discharge with appropriate follow-up. DISCHARGE MEDICATIONS: Please see below. ALLERGIES: Please see below. PHYSICAL EXAMINATION ON DISCHARGE: VITAL SIGNS: Please see below. GENERAL: Awake, alert, and oriented. Sitting in chair comfortably. Appears in no acute distress HEENT: Atraumatic, normocephalic. Trachea is midline. Eyes are non-icteric. Mucous membranes are pink and moist CARDIOVASCULAR EXAMINATION: Normal S1, S2. Regular rate and rhythm. No clicks, rubs, or murmurs appreciated RESPIRATORY EXAMINATION: Clear vesicular sounds bilaterally. Good respiratory e ffort ABDOMINAL EXAMINATION: Soft, nontender to palpation throughout. No rebound tenderness or guarding. Positive bowel sounds throughout EXTREMITIES: No edema. Pulses full and equal in upper and lower extremities bilaterally SKIN: No rashes or lesions NEUROLOGICAL EXAMINATION: No focal neurological deficits noted PSYCHIATRIC EXAMINATION: Mood and affect appear appropriate LABORATORY DATA: Please see below. IMAGING: CT ABDOMEN AND PELVIS WITHOUT CONTRAST: 12/31/2018. Comparison: 10/11/2018. Clinical history: Low abdominal cramping, GI bleeding. Had an episode of GI bleeding 10/10/2018 with some free air from presumed rectal perforation. Technique: Scanning through the abdomen and pelvis without oral or IV contrast and with coronal and sagittal reconstructions provided. There has been prior focal lumbar fusion with pedicle screws from T11-T12 through L4. Compression fractures of L2 seen with retropulsed fragment unchanged. Kyphoplasty cement at that level. The lung bases showed no effusion, infiltrate, nodule or mass. Heart not enlarged. No pericardial thickening or effusion. Small hiatal hernia suspected. Some calcifications aorta without aneurysm. Liver is borderline in size with right hepatic lobe 18 cm in vertical diameter. Left hepatic lobe not enlarged. There is no intrahepatic biliary dilatation. Appearance of liver unchanged. There is no splenomegaly or focal splenic lesion. Stomach filled with retained food. No evidence of obstruction. Small bowel loops are fluid-filled but not abnormally dilated. The colon with the mixed stool, gas, and fluid but no evidence of colitis or diverticulitis in the abdomen proper. No periaortic or retroperitoneal or mesenteric pathologic sized lymph nodes. Gallbladder shows no calcified stone or mass. The pancreas without mass, ductal dilatation, peripancreatic adenopathy or fluid. Adrenal glands normal. Kidneys are atrophic bilaterally as before. Lung window review of all CT slices abdomen and pelvis shows no perforation or free air. The bone windows show no change from the previous CT in September with no new compression deformity or destructive lesion. Gaines rods and pedicle screws unchanged without hardware failure. CT pelvis: Bones demineralized. The sacrum, pelvis and hips show some degenerative change but no destructive lesion or fracture. Uterus absent. The vaginal cuff intact. Bladder shows no mass or wall thickening. There is no renal, ureteral or bladder stone evident. There are a few pelvic phleboliths, but these are unchanged. Small bowel loops fluid-filled but not abnormally dilated. There are no inflammatory changes about the cecum. The appendix is absent. I see no ventral or inguinal hernia nor pathologic sized inguinal adenopathy. The distal left colon, sigmoid and rectum are without acute inflammatory changes, mass or stricture. Impression: 1. No CT evidence of mass, diverticulitis or colitis, ascites, perforation or free air in the abdomen or pelvis. 2. Fluid-filled colon and small bowel loops. This may reflect some gastroenteritis and/or ileus or both. 3. Solid organs in the upper abdomen including the liver, spleen and adrenal glands as well as pancreas were unremarkable. 4. The kidneys do show bilateral atrophy but no hydronephrosis or stone. Pancreas grossly intact. Nothing acute. Electronically Signed by Fritz Trinidad MD 12/31/2018 08:46 P Portable chest, single AP sitting view, 05:40 p.m.: Comparison is 05/17/2018. There is a left IJ central venous catheter with the tip in satisfactory location at the confluence of the superior vena cava and right atrium. There is no pneumothorax or hemothorax. The patient is rotated. There are bilateral multiple rib fractures that appear unchanged from the prior study. Cardiac size is normal. The lon, mediastinum, skeletal structures otherwise are unremarkable for positioning. There are stabilization rods in the lumbar spine. Electronically Signed by Karan Mclain MD 12/31/2018 05:50 P PROGNOSIS: Good ACTIVITY: [As tolerated]. DIET: As tolerated DISCHARGE PLAN: DISPOSITION: Good DISCHARGE INSTRUCTIONS: Patient is to be discharged home. She is to follow-up with her primary care physician within 1 to 2 weeks. She is to stop taking her Amlodipine, Clonidine, and Hydralazine due to hypotension during her hospital stay. On follow-up with her primary care doctor her blood pressure medications may need to be restarted if her she becomes hypertensive. She will continue the remaining prehospital medication. Patient is to return to the ER if she develops bloody stool. DISCHARGE CONDITION: [Stable]. TIME SPENT ON DISCHARGE: Greater than 40 minutes. Vital Signs/I&Os Vital Signs Date Time Temp Pulse Resp B/P (MAP) Pulse Ox O2 Delivery O2 Flow Rate FiO2 01/06/19 08:53 160/74 01/06/19 06:00 97.3 78 18 95 01/05/19 06:00 2.0 01/02/19 20:19 Nasal Cannula I&O- Last 24 Hours up to 6 AM 01/06/19 06:00 Intake Total 500 ml Output Total 0 ml Balance 500 ml Laboratory Data Labs 24H Laboratory Tests 2 01/06/19 06:09: Nucleated Red Blood Cells % (auto) 0.0, Anion Gap 8, Glomerular Filtration Rate 5.2L, Blood Urea Nitrogen 42H, Creatinine 8.18*H, Sodium Level 139, Potassium Level 3.8, Chloride Level 104, Carbon Dioxide Level 27, Calcium Level 8.1L CBC/BMP Laboratory Tests 01/06/19 06:09 Red Blood Count 3.30 L, Mean Corpuscular Volume 88.2, Mean Corpuscular Hemoglobin 29.1, Mean Corpuscular Hemoglobin Concent 33.0, Red Cell Distribution Width 14.4, Calcium Level 8.1 L Discharge Medications Scheduled (Ayimrjuox-Stkfhqguiv-Ataq 2.5-2.5 %) 1 Cre Cre, 1 DOSE TOP 3XW, (Reported) MON, WED, FRI: APPLY ALONG AV FISTULA TRACK PRIOR TO DIALYSIS (Steph-Yovani) 1 Tab Tab, 1 TAB PO DAILY, (Reported) (Azelastine HCl) 0.1 % Spr, 1 SPRAY NA BID, (Reported) Albuterol Sulfate (Albuterol Sulfate) 2.5 Mg/3 Ml Nebu, 2.5 MG INH QID, (Reported) Calcitonin (Thorndale) (Miacalcin) 200 Unit/Act Spr, 1 SPRAY NA QHS, (Reported) ALTERNATE NOSTRILS DAILY Calcium Polycarbophil (Fibercon) 625 Mg Tab, 625 MG PO DAILY, (Reported) Cetirizine HCl (Cetirizine HCl) 10 Mg Tab, 10 MG PO QHS, (Reported) Cyanocobalamin (Vitamin B-12) 1,000 Mcg Tab, 1,000 MCG PO QHS, (Reported) Dicyclomine HCl (Dicyclomine HCl) 20 Mg Tab, 20 MG PO QID, (Reported) Fish Oil (Fish Oil) 1,000 Mg Cap, 1,000 MG PO DAILY, (Reported) Fluticasone Propionate (Flonase Allergy Relief) 50 Mcg/Act Spr, 2 SPRAY NA DAILY, (Reported) Fluticasone Propionate (Flovent Hfa) 110 Mcg/Act Aer, 1 PUFF INH BID, (Reported) Lactobacillus Acidophilus (Bacid) 1 Tab Tab, 1 TAB PO DAILY, (Reported) Levothyroxine Sodium (Synthroid) 112 Mcg Tab, 112 MCG PO DAILY, (Reported) Losartan Potassium (Losartan Potassium) 100 Mg Tab, 100 MG PO QPM, (Reported) TAKES AT 1700 Melatonin (Ra Melatonin) 10 Mg Tab, 10 MG PO QHS, (Reported) Metoprolol Tartrate (Metoprolol Tartrate) 50 Mg Tab, 50 MG PO BID, (Reported) Mirtazapine (Remeron) 15 Mg Tab, 15 MG PO QHS, (Reported) Pantoprazole Sodium (Pantoprazole Sodium) 40 Mg Tab, 40 MG PO BID, (Reported) Polyethylene Glycol (Miralax) 1 Pow Pow, 17 GM PO DAILY, (Reported) dilute in 8 ounces of water or juice Pravastatin Sod (Pravastatin Sodium) 40 Mg Tab, 40 MG PO QHS, (Reported) Sodium Chloride (Lenore) 0.65 % Spr, 1 SPRAY NARES TID, (Reported) PT SELF ADMINISTERS Sodium Polystyrene Sulfonate (Sps) 15 Gm/60 Ml Susp, 15 GM PO ASDIRECTED, (Reported) TAKES IF DIALYSIS IS MISSED Tiagabine Hydrochloride (Gabitril) 4 Mg Tab, 4 MG PO DAILY, (Reported) TAKES AT 1200 Scheduled PRN (Systane Balance Restorati) 0.6 % Tala, 1 DROP OU TID PRN for DRY EYES, (Reported) (Guaifenesin/Dextromethorp 10-100 mg/5Ml) 1 Syp Syp, 10 ML PO Q4H PRN for COUGH, (Reported) Acetaminophen (Acetaminophen Extra Stren) 500 Mg Tab, 1,000 MG PO Q6H PRN for PAIN, (Reported) Acetaminophen/Hydrocodone (Windsor 5-325 mg) 1 Tab Tab, 1 TAB PO Q6H PRN for PAIN, (Reported) Albuterol Sulfate (Proair Hfa) 108 Mcg/Act Aer, 2 PUFF INH Q6H PRN for SHORTNESS OF BREATH, (Reported) Artificial Tears (Artificial Tears) 1.4 % Tala, 1 DROP OU Q2H PRN for DRY EYES, (Reported) Cyclobenzaprine HCl (Cyclobenzaprine HCl) 5 Mg Tab, 5 MG PO TID PRN for MUSCLE SPASMS, (Reported) Docusate Sodium (Docusate Sodium) 100 Mg Cap, 100 MG PO DAILY PRN for CONSTIPATION, (Reported) Guaifenesin (Guaifenesin ER) 600 Mg Tab, 600 MG PO Q12H PRN for CONGESTION, (Reported) Hydrocortisone (Anusol-Hc) 2.5 % Cre, 1 DOSE NE BID PRN for HEMORRHOIDS, (Reported) PT SELF ADMINISTERS Loperamide Hcl (Imodium A-D) 2 Mg Tab, 4 MG PO ASDIRECTED PRN for DIARRHEA, (Reported) Nystatin (Nystatin) 100,000 Unit/Gm Cre, 1 APLCT TOP BID PRN for RASH, (Reported) APPLY TO GROIN NEEDED, PT SELF ADMINISTERS Prochlorperazine Maleate (Prochlorperazine Maleate) 10 Mg Tab, 10 MG PO Q6H PRN for NAUSEA, (Reported) Simethicone (Gas-X Extra Strength) 125 Mg Chw, 125 MG PO QID PRN for STOMACH PAIN, (Reported) Allergies Coded Allergies: Butalbital (Verified Adverse Reaction, Unknown, HYPER AWAKEFULNESS, 12/31/18) GME ATTESTATION GME ATTESTATION My faculty preceptor for this patient encounter was physically present during the encounter and was fully available. All aspects of the patient interview, examination, medical decision making process, and medical care plan development were reviewed and approved by the faculty preceptor. The faculty preceptor is aware and concurs with the plan as stated in the body of this note and will attest to such by his/her cosignature. EMILI DORADO DO Jan 06, 2019 11:39
--- NOTE | 2019-01-22 08:39 | REPIR ---
DATE OF PROCEDURE: 12/31/2018 ATTENDING SURGEON: Dr. Mari Raymundo ASSISTANTS: Nicole Quiles and Olamide Barahona. PREOPERATIVE DIAGNOSES: Gastrointestinal bleeding, hypotension. POSTOPERATIVE DIAGNOSES: Gastrointestinal bleeding, hypotension. PROCEDURE: Aortogram, iliofemoral angiogram, selective superior mesenteric artery catheter placement with angiogram, selective celiac artery catheter placement with angiogram, selective right internal iliac artery catheter placement with angiogram, and selective left internal iliac artery catheter placement with angiogram. INDICATION: The patient is a 68-year-old female with a gastrointestinal bleed, who will undergo angiography with possible embolization. Risks, benefits and alternative treatment options were discussed with the patient. ANESTHESIA: Monitored anesthesia care (MAC) with 10 mL of 2% lidocaine. FLUOROSCOPY TIME: 3.6 minutes. CONTRAST: 39 mL. ESTIMATED BLOOD LOSS: 5 mL. INTRAVENOUS (IV) FLUIDS: 200 mL. HEPARIN: None. COMPLICATIONS: None. DRAINS: None. SPECIMENS: None. IMPLANTS: None. DESCRIPTION OF PROCEDURE: The patient was taken to the angiography suite, placed supine on the angiography room table and then prepped and draped in a standard surgical fashion. The right common femoral artery was cannulated with a micropuncture needle after anesthetizing the overlying skin with 2% lidocaine. The micropuncture wire was advanced to the micropuncture needle, which was upsized to a micropuncture sheath. The catheter was placed in the aorta and an aortogram was performed. The catheter was pulled down to level of the bifurcation iliac arteries and an iliofemoral angiogram was performed. The celiac artery was selectively cannulated and angiography performed showing no bleeding. The superior mesenteric artery was selectively cannulated and an angiogram performed showing no bleeding. The right internal iliac artery was cannulated selectively and angiogram performed showing no evidence of bleeding. The left internal iliac artery was selectively cannulated and again no evidence of bleeding noted. Catheters and wires were removed. The right common femoral arterial sheath remained in place for use as an A-line and for future angiography if continued bleeding persists. Dressings were then applied. The patient tolerated procedure well. All instrument, sponge, needle counts were correct at the end of the case. There were no complications. Dr. Raymundo was present for and directed the entire case. The patient was transferred to the intensive care unit (ICU) in critical condition. RADIOLOGIC SUPERVISION INTERPRETATION: The aortogram, iliofemoral angiogram, selective superior mesenteric artery, selective celiac artery, selective right internal iliac artery, selective left internal iliac artery angiograms all showed no evidence of gastrointestinal bleeding. The right common femoral arterial sheath remained in place for use as an A-line and for possible future angiography.
--- NOTE | 2019-01-22 08:43 | REPIR ---
DATE OF PROCEDURE: 01/01/2019 PREOPERATIVE DIAGNOSES: Gastrointestinal bleeding and end stage renal disease. POSTOPERATIVE DIAGNOSES: Gastrointestinal bleeding and end stage renal disease. ATTENDING SURGEON: Dr. Mari Raymundo WASHING MACHINE LOADER: Olamide Quiles PROCEDURE: Selective celiac artery aortogram, iliofemoral angiogram, selective celiac artery catheter placement with angiogram, selective superior mesenteric artery catheter placement with angiogram, selective left internal iliac artery catheter placement with angiogram, selective right internal iliac artery catheter placement with angiogram. INDICATION: The patient is a 68-year-old female with continued gastrointestinal bleeding and hypotension who will undergo mesenteric angiography with possible coil embolization. Risks, benefits and alternative treatment options were discussed with the patient. ANESTHESIA: None. FLUORO TIME: 7.7 minutes. CONTRAST: 22 mL of Isovue-300. HEPARIN: None. COMPLICATIONS: None DRAINS: None. SPECIMENS: None. IMPLANTS: None. DESCRIPTION OF PROCEDURE: The patient was taken to the angiography suite, placed supine on the angiography room table and the right common femoral arterial sheath, which was in place was then cannulated using a [employer] wire. An Omni flush catheter was placed in the aorta and the aortogram was performed. Catheter was pulled down to the level of bifurcation of the iliac arteries and iliofemoral angiogram was performed. Catheter was then placed in the superior mesenteric artery and selective superior mesenteric artery angiogram was performed. Catheter was placed and celiac artery and selective celiac artery angiogram was performed. Catheter was then placed in the right internal iliac artery with angiography performed. Catheter was placed in the left internal iliac artery with angiography performed. There was no evidence of bleeding. The angiography catheters and wires removed. The right common femoral arterial sheath remained in place for use as an A-line and for future angiography as needed. Dressings were then applied. The patient tolerated the procedure well. All instrument, sponge, and needle counts were correct at the end of the case. There were no complications. Dr. Raymundo was present for and directed the entire case. The patient was transferred to the intensive care unit (ICU) in critical condition. RADIOLOGY SUPERVISION INTERPRETATION: There was no obvious bleeding noted on the angiography.
--- NOTE | 2019-01-22 10:31 | RO ---
DATE OF PROCEDURE: 01/03/2019 PREOPERATIVE DIAGNOSES: Right common femoral arterial sheath. Gastrointestinal bleeding. POSTOPERATIVE DIAGNOSES: Right common femoral arterial sheath. Gastrointestinal bleeding. PROCEDURE Right common femoral arteriotomy closure with a MYNX closure device. ATTENDING SURGEON: Mari Rayumndo MD PRECISION DYER: Nicole Quiles ANESTHESIA: None. INDICATION: Patient is a 68-year-old female with a GI bleed who underwent right angiography via a right common femoral arterial approach and the sheath remained in place for use as an arterial line for future possible angiography. The patient has now had resolution of the gastrointestinal bleeding and no longer requires the sheath, which will be removed. Risks, benefits and alternative treatment options were discussed with the patient. ESTIMATED BLOOD LOSS: Minimal. IV FLUIDS: None. COMPLICATIONS: None. DRAINS: None. SPECIMENS: None. IMPLANT: Right common femoral arteriotomy closure with a MYNX closure device. PROCEDURE: Patient was prepped and draped in a standard surgical fashion. The MYNX closure device was inserted through the 6-Bahamian sheath and used to close the arteriotomy in the right common femoral artery with an additional 10 minutes of adjunctive pressure applied for hemostasis. Dressings were then applied. The patient tolerated the procedure well. All instrument, sponge, needle counts were correct at the end the case. There were no complications. Dr. Raymundo was present for and directed the entire case. The patient remained in the intensive care unit in stable condition.
== END 2019-01-06 13:51 | DRG 919 ==
LOC: M ED 13:53 → EDBD 13:53 → M ED INP 17:12 → M ICU 19:55 → M MSPAV 01-03 14:59
PROVIDERS: ADMIT Internal Medicine; ATTEND Internal Medicine
PROC: BW0 Imaging, Anatomical Regions, Plain Radiography (ICD-10-PCS; 2018-12-31)
PROC: B40GYZZ Plain Radiography of Left Lower Extremity Arteries using Other Contrast (ICD-10-PCS; 2018-12-31)
PROC: 02HV33Z Insertion of Infusion Device into Superior Vena Cava, Percutaneous Approach (ICD-10-PCS; 2018-12-31)
PROC: 0W3P8ZZ Control Bleeding in Gastrointestinal Tract, Via Natural or Artificial Opening Endoscopic (ICD-10-PCS; 2019-01-01)
PROC: 30233N1 Transfusion of Nonautologous Red Blood Cells into Peripheral Vein, Percutaneous Approach (ICD-10-PCS; 2019-01-02)
PROC: 04PY3DZ Removal of Intraluminal Device from Lower Artery, Percutaneous Approach (ICD-10-PCS; principal; 2019-01-03)
PROC: 5A1D70Z Performance of Urinary Filtration, Intermittent, Less than 6 Hours Per Day (ICD-10-PCS; 2019-01-04)
DX: K91.840 Postprocedural hemorrhage of a digestive system organ or structure following a digestive system procedure (principal); R57.1 Hypovolemic shock; N18.6 End stage renal disease; I12.0 Hypertensive chronic kidney disease with stage 5 chronic kidney disease or end stage renal disease; M31.0 Hypersensitivity angiitis; D62 Acute posthemorrhagic anemia; K92.2 Gastrointestinal hemorrhage, unspecified; E78.5 Hyperlipidemia, unspecified; K58.1 Irritable bowel syndrome with constipation; K21.9 Gastro-esophageal reflux disease without esophagitis; G47.33 Obstructive sleep apnea (adult) (pediatric); K57.30 Diverticulosis of large intestine without perforation or abscess without bleeding; M81.0 Age-related osteoporosis without current pathological fracture; J44.9 Chronic obstructive pulmonary disease, unspecified; J45.909 Unspecified asthma, uncomplicated; E03.9 Hypothyroidism, unspecified; Z90.49 Acquired absence of other specified parts of digestive tract; Z87.891 Personal history of nicotine dependence; Z79.899 Other long term (current) drug therapy; Z99.2 Dependence on renal dialysis; Z88.8 Allergy status to other drugs, medicaments and biological substances; Y83.8 Other surgical procedures as the cause of abnormal reaction of the patient, or of later complication, without mention of misadventure at the time of the procedure

== ENCOUNTER → 2019-01-16 | Outpatient (REF) | payer MEDICARE, MEDICAID ==
[~2019-01-16] MED LIST changes: -/ONDA4TA SL; +CALC625T13; +CEFD300C41 PO; -CEFD300CAP PO; -FIBE625T4; +HYDR-3715 PO; +LISI40TA52 PO; -LISI40TAB PO; +METO1TAB63 PO; -METO25TAB PO; -METR-201 PO; +METR-265 PO; -NORC1TAB4 PO; +NORC1TAB7 PO; -NORCOTAB PO; +ONDA-1 SL; +VERA120T4 PO; -VERA1TAB10 PO; +VITA100018 PO; -VITA100072 PO
[2019-01-16 13:55] LABS: HEMOGLOBIN 9.7 g/dl (12.0-15.5); MEAN CORPUSCULAR HEMOGLOBIN 29.5 pg (27.0-33.0); MEAN CORPUSCULAR HGB CONC 32.3 g/dl (32.0-36.5); MEAN CORPUSCULAR VOLUME 91.2 fl (80.0-96.0); PLATELET COUNT, AUTOMATED 161 10^3/uL (150-450); RED BLOOD COUNT 3.29 10^6/uL (4.00-5.40); WHITE BLOOD COUNT 4.5 10^3/uL (4.0-10.0)
== END ==
LOC: M SFHCPLAZ 11:28
PROVIDERS: ATTEND Family Medicine
DX: D50.0 Iron deficiency anemia secondary to blood loss (chronic) (principal)
CPT/HCPCS: 36415; 85027; 99497; G0463

== ENCOUNTER → 2019-04-15 | Outpatient (REF) | payer MEDICARE, MEDICAID ==
[~2019-04-15] MED LIST changes: +CYAN100049 PO; +MM S100C PO; -STOO100C PO; -VITA10002 PO
== END ==
LOC: M SFHCPLAZ 11:18
PROVIDERS: ATTEND Family Medicine
DX: E89.0 Postprocedural hypothyroidism (principal)
CPT/HCPCS: 36415; 84443; 90732; G0009

== ENCOUNTER → 2019-05-08 | Outpatient (CLI) | payer MEDICARE, MEDICAID ==
[~2019-05-08] MED LIST changes: -ARTI99.0 OU; +ARTIDRO2 OU; +BUPIVACAINE HCL 0.5% 10 ML VIAL As Ordered ONE; +ISOVUE-300 61% 50ML VIAL (Q9967) As Ordered ONE; +LIDOCAINE 2% MDV 20 ML VIAL As Ordered ONE; +MIDAZOLAM INJ 2 MG/2 ML VIAL (J2250) As Ordered ONE; +diphenhydrAMINE INJ 50MG/ML VIAL (J1200) As Ordered ONE; +fentaNYL 100 MCG/2 ML INJECTION (J3010) As Ordered ONE
[2019-05-08 15:29] VITALS: BP 127/85
--- NOTE | 2019-06-05 09:31 | REPIR ---
DATE OF PROCEDURE: 05/08/2019 ATTENDING SURGEON: Dr. Balwinder Raymundo DESIGN STUDIO CONSULTANT: Dimas Rader and Nicole Quiles PREOPERATIVE DIAGNOSIS: End-stage renal disease, dysfunctional left basilic vein transposition arteriovenous fistula. POSTOPERATIVE DIAGNOSIS: End-stage renal disease, dysfunctional left basilic vein transposition arteriovenous fistula. PROCEDURE: Left sub vein transposition arteriovenous fistulogram, retrograde left brachial artery angiogram, left basilic vein angioplasty with 8 X 200 and 10 x 80 mm balloon. INDICATION: The patient is a 68-year-old female with end-stage renal disease who dialyzes through a left basilic vein transposition arteriovenous fistula which has had difficulty with cannulation as well as excessive bleeding on decannulation and poor flow rates. The patient will undergo a fistulogram with possible angioplasty stent and/or arthrectomy. Risks, benefits and alternative options were discussed with the patient. ANESTHESIA: Local with sedation of 2 mg Versed, 50 mcg of fentanyl and 2 mL of 2% lidocaine mixed 0.5% Marcaine. FLUOROSCOPY TIME: 0.8 minutes. CONTRAST: 4 mL of Isovue-300. SEDATION TIME: Was from 1321 p.m. to 1349 p.m. for a total of 28 minutes. COMPLICATIONS: None. DRAINS: None. SPECIMENS: None. IMPLANTS: None. PROCEDURE: The patient was taken to the angiography suite, placed supine on the angiography room table and then prepped and draped in a standard surgical fashion. The left basilic vein transposition arteriovenous fistula was cannulated with a micropuncture needle, the micropuncture sheath was then advanced over the micropuncture wire. A fistulogram showed stenosis in the basilic vein. The basilic vein with angioplasty with an 8 x 200 with residual stenosis remaining on followup fistulogram. A 10 x 80 balloon was used to angioplasty the basilic vein. During inflation of the 10 x 80 balloon a retrograde brachial artery angiogram was performed showing no intervention required. A completion fistulogram was performed showing resolution of the stenosis after angioplasty of the basilic vein with 10 x 80 balloon. Catheters and wires were removed. The sheath was removed and a 2-0 Prolene suture placed at the puncture site for hemostasis. Dressings were then applied. The patient tolerated procedure well. All instruments, sponge, and needle counts were correct at the end the case. There were no complications. Dr. Raymundo was present for and directed the entire case. The patient was transferred to the holding area and subsequently discharged in stable condition.
== END ==
LOC: M IRPRO 11:57
PROVIDERS: ATTEND Surgery Vascular Surgery
DX: N18.6 End stage renal disease (principal); T82.590A Other mechanical complication of surgically created arteriovenous fistula, initial encounter; I12.0 Hypertensive chronic kidney disease with stage 5 chronic kidney disease or end stage renal disease; E78.5 Hyperlipidemia, unspecified; K21.9 Gastro-esophageal reflux disease without esophagitis; E03.9 Hypothyroidism, unspecified; K58.9 Irritable bowel syndrome, unspecified; J44.9 Chronic obstructive pulmonary disease, unspecified; M54.2 Cervicalgia; G89.29 Other chronic pain; X58.XXXA Exposure to other specified factors, initial encounter; Y93.9 Activity, unspecified; Y92.9 Unspecified place or not applicable; Y99.9 Unspecified external cause status
CPT/HCPCS: 36902; C1725; C1769; C1894; J2250; J3010; Q9967

== ENCOUNTER → 2019-06-04 | Outpatient (CLI) | payer MEDICARE, MEDICAID ==
[~2019-06-04] MED LIST changes: -BUPIVACAINE HCL 0.5% 10 ML VIAL As Ordered ONE; -ISOVUE-300 61% 50ML VIAL (Q9967) As Ordered ONE; -LIDOCAINE 2% MDV 20 ML VIAL As Ordered ONE; -MIDAZOLAM INJ 2 MG/2 ML VIAL (J2250) As Ordered ONE; -diphenhydrAMINE INJ 50MG/ML VIAL (J1200) As Ordered ONE; -fentaNYL 100 MCG/2 ML INJECTION (J3010) As Ordered ONE
--- NOTE | 2019-06-09 09:30 | DEXA ---
AP SPINE L1 - L4 LT FEMUR TOTAL 0.567 -3.5 -2.1 LT NECK 0.565 -3.4 -1.8 RT FEMUR TOTAL 0.545 -3.7 -2.3 RT NECK 0.595 -3.2 -1.6 TOTAL BODY TOTAL OTHER COMMENTS: There is osteoporosis of the hips. The density of the left hip has decreased 20.0% since the initial exam on 07/05/2011. The density of the left hip has decreased 1.7% since the most recent exam on 05/01/2017. The density of the right hip has decreased 31.1% since the initial exam on 08/04/2003. The density of the right hip has decreased 0.9% since the most recent exam on 05/01/2017. FOLLOW-UP: Recommendation for the next bone density exam: 2 years. SOL
== END ==
LOC: M WHC 14:41
PROVIDERS: ATTEND Nurse Practitioner Family
DX: M81.0 Age-related osteoporosis without current pathological fracture (principal)

== ENCOUNTER → 2019-06-10 | Outpatient (REF) | payer MEDICARE, MEDICAID ==
[~2019-06-10] MED LIST changes: -ALL10TAB28 PO; +ALL10TAB29 PO; -GAS1CHW PO; +LIDO2.5C15 TOP; +LOPE2TAB12 PO; +RITU50VL IM; +SIME125C4 PO; +SIME80TA5 PO; +SYST0.4D2 OU
== END ==
PROVIDERS: ATTEND Family Medicine
DX: E03.9 Hypothyroidism, unspecified (principal)

== ENCOUNTER → 2019-06-17 | Outpatient (CLI) | payer MEDICARE, MEDICAID ==
[~2019-06-17] MED LIST changes: +BUPIVACAINE HCL 0.5% 10 ML VIAL As Ordered ONE; +ISOVUE-300 61% 50ML VIAL (Q9967) As Ordered ONE; +LIDOCAINE 2% MDV 20 ML VIAL As Ordered ONE; +ONDA-83 PO; -ONDA4TAB5 PO; -SULF1TAB72 PO; +SULF400T14 PO; +VERA120T9 PO; +diphenhydrAMINE INJ 50MG/ML VIAL (J1200) As Ordered ONE
[2019-06-17 15:45] VITALS: BP 149/67
--- NOTE | 2019-06-17 22:16 | ROOPDOC ---
[facility] Report Of Operation Report of Operation DATE OF PROCEDURE: 06/17/2019 PREOPERATIVE DIAGNOSIS: End-stage renal disease. Dysfunctional right basilic vein transposition autogenous arteriovenous fistula. POSTOPERATIVE DIAGNOSIS: End-stage renal disease. Dysfunctional right basilic vein transposition autogenous arteriovenous fistula. PROCEDURE: Right basilic vein transposition autogenous arteriovenous fistulogram. Retrograde right brachial artery angiogram. SURGEON: Dr. Mari Raymundo MD LITIGATION LEGAL ASSISTANT: Olamide Hill INDICATION: Patient is a 68-year-old female with end-stage renal disease who dialyzes through a right basilic vein transposition autogenous arteriovenous fistula. Patient has had difficulty with cannulation and the upper portion of the fistula as well as pain with cannulation. 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 Patient will undergo a right basilic vein transposition autogenous arteriovenous fistulogram. Procedure was explained and described to the patient in detail including drawing of pictures demonstrating the procedure and the anatomy. Risks, benefits and alternative treatment options were discussed with the patient. Benefits included but were not limited to improved functioning of the arterial venous fistula and maintained patency. Alternative treatment options included but were not limited to no intervention. Risks included but were not limited to infection, bleeding, loss of arteriovenous access, steal syndrome, possible need for open surgical intervention, anesthetic complications, allergic reaction or complication from the prepping and draping materials, allergic reaction or complication from the contrast, scarring of the skin, hematoma formation, scarring, bruising, possible need for transfusion of blood products, cerebrovascular accident, myocardial infarction, pulmonary embolus, deep venous thrombosis, loss of limb, loss of life and poor outcome. Risks of not performing the procedure included but were not limited to loss of autogenous arteriovenous access with need for placement of a tunneled central venous catheter for access and creation of a new access for hemodialysis Patient's questions were answered. Patient voices understanding of these risks, benefits and alternative treatment options. Patient voices acceptance of these risks associated with the procedure and consents to proceed with a fistulogram with possible angioplasty, atherectomy and/or stenting. No promises or guarantees were made to the patient regarding the procedure results or outcome. The patient signed the consent in the preoperative holding area. ANESTHESIA: Local with 1 mL of 2% lidocaine mixed with 0.5% Marcaine SEDATION TIME: No sedation was given. ESTIMATED BLOOD LOSS: 5 mL. IV FLUIDS: 50 mL. HEPARIN: None PROTAMINE: None FLUORO TIME: 0.1 minutes CONTRAST: 3 mL. of Isovue 300 COMPLICATIONS: None DRAINS: None. SPECIMENS: None. IMPLANTS: None PROCEDURE: Patient was taken to the angiography suite, placed supine on the angiography room table and then prepped and draped in a standard surgical fashion. A procedural time-out was conducted by myself and the team members involved in the procedure confirming the correct patient, procedure and laterality. The right basilic vein transposition autogenous arteriovenous fistula was then cannulated with a micro-puncture needle after anesthetizing the overlying skin and subcutaneous tissue with 2% lidocaine mixed with 0.5% Marcaine. A micropuncture wire was advanced through the micropuncture needle which was up-sized to a micropuncture sheath. A fistulogram and retrograde right brachial artery angiogram were performed showing no intervention was required. The catheter was removed and manual compression applied at the puncture site for hemostasis. Dressings were then applied. Patient tolerated the procedure well. There were no complications. All instrument, sponge and needle counts were correct at the end of the case. Dr. Raymundo was present for and directed the entire case. Patient was transferred to the recovery area and subsequently discharged in stable condition to home. The results of the procedure were described and explained to the patient in the post operative holding area with all of her questions answered. RADIOLOGIC SUPERVISION AND INTERPRETATION: The fistulogram showed the basilic vein to be widely patent to the central venous system with no central venous stenosis or occlusion noted. The retrograde brachial artery angiogram showed the remainder of the basilic vein from the cannulation site to the brachial artery to be widely patent. There was good flow in the brachial artery proximal and distal to the arteriovenous anastomosis. There was no stenosis at the arteriovenous anastomosis. The previously stented portion of basilic vein was widely patent and the aneurysmal portion of these basilic vein distal to the stent shows no increase in size. CONCLUSION: The fistula was widely patent and required no intervention and was of adequate size for access for hemodialysis. If there is continued difficulty with cannulation and pain with cannulation the patient may require translocation of the basilic vein to a more suitable location for access. The options of possible surgical intervention with translocation were discussed with the patient. PLAN: Patient will continue to use the right basilic vein transposition autogenous arteriovenous fistula for hemodialysis access. If the patient has continued difficulty with cannulation and pain during cannulation she will require translocation of the basilic vein to a more suitable location in the right upper arm to avoid difficulty with cannulation and pain with cannulation. This would require surgical intervention and placement of a tunneled central venous catheter for hemodialysis access. Plan will be to continue to monitor progress and reevaluate the patient in approximately 1 month. Charli Raymundo MD Jun 17, 2019 22:16
== END ==
LOC: M IRPRO 14:35
PROVIDERS: ATTEND Surgery Vascular Surgery
DX: N18.6 End stage renal disease (principal); T82.898A Other specified complication of vascular prosthetic devices, implants and grafts, initial encounter; I12.0 Hypertensive chronic kidney disease with stage 5 chronic kidney disease or end stage renal disease; K21.9 Gastro-esophageal reflux disease without esophagitis; E03.9 Hypothyroidism, unspecified; X58.XXXA Exposure to other specified factors, initial encounter; Y93.9 Activity, unspecified; Y92.9 Unspecified place or not applicable; Y99.9 Unspecified external cause status
CPT/HCPCS: 36901; C1894; Q9967

== ENCOUNTER → 2019-07-08 | Outpatient (REF) | payer MEDICARE, MEDICAID ==
[~2019-07-08] MED LIST changes: -BUPIVACAINE HCL 0.5% 10 ML VIAL As Ordered ONE; -ISOVUE-300 61% 50ML VIAL (Q9967) As Ordered ONE; -LIDOCAINE 2% MDV 20 ML VIAL As Ordered ONE; -diphenhydrAMINE INJ 50MG/ML VIAL (J1200) As Ordered ONE
[2019-07-08 10:28] LABS: CHOLESTEROL RISK RATIO 2.952 (<5)
== END ==
PROVIDERS: ATTEND Family Medicine
DX: E78.2 Mixed hyperlipidemia (principal)

== ENCOUNTER 2019-07-22 09:12 | Outpatient (CLI) | payer MEDICARE, MEDICAID ==
[~2019-07-22] VITALS: Ht 167.6 cm; Wt 58.7 kg
[2019-07-22] VITALS (8 sets, daily range): BP systolic 105–148; BP diastolic 51–67
[~2019-07-22 09:12] MED LIST changes: -ONDA-83 PO; +ONDA4TAB5 PO; -RITU50VL IM; +SULF1TAB72 PO; -SULF400T14 PO; -VERA120T9 PO
[2019-07-22] MEDS ORDERED: RITUXIMAB IV ONE (09:30)
[2019-07-22] MEDS ORDERED: diphenhydrAMINE 25 MG CAP PO PRN ×2 (09:30→09:45)
[2019-07-22] MEDS ORDERED: riTUXimab 500 MG in NS 450 ML IV ONE (09:30)
[2019-07-22] MEDS ORDERED: diphenhydrAMINE INJ 50MG/ML VIAL (J1200) IV PRN ×2 (09:30→09:37)
[2019-07-22] MEDS ORDERED: HYDROCORTISONE 100 MG/2 ML VIAL (J1720) IV PRN ×2 (09:30→09:39)
[2019-07-22] MEDS ORDERED: diphenhydrAMINE 25 MG CAP PO ONE (09:30)
[2019-07-22] MEDS ORDERED: methylPREDNISolone INJ 125 MG/2 ML VIAL (J2930) IV ONE (09:30)
[2019-07-22] MEDS ORDERED: ACETAMINOPHEN TAB 650MG DOSE (2X325MG) PO ONE (09:30)
[2019-07-22] MEDS ORDERED: NS IV ONE (09:30)
[2019-07-22] MEDS ORDERED: dexameTHASONE 4 MG/ML 1ML VIAL (J1100) IV ONE (09:45)
[2019-07-22] MEDS ORDERED: dexameTHASONE 20 MG/5 ML VIAL (J1100) IV PRN (09:45)
[2019-07-22] MEDS ORDERED: methylPREDNISolone INJ 125 MG/2 ML VIAL (J2930) IV PRN (09:45)
[2019-07-22] MEDS ORDERED: dexameTHASONE 20 MG/5 ML VIAL (J1100) IV ONE (09:45)
[2019-07-22] MEDS ORDERED: ACETAMINOPHEN TAB 650MG DOSE (2X325MG) PO PRN (10:00)
== END 2019-07-22 14:00 | disposition home or self-care (01) ==
LOC: M INFU 09:12
PROVIDERS: ATTEND Internal Medicine
DX: M31.31 Wegener's granulomatosis with renal involvement (principal)
CPT/HCPCS: 96375; 96413; 96415; J1100; J9312

== ENCOUNTER 2019-08-05 09:25 | Outpatient (CLI) | payer MEDICARE, MEDICAID ==
[2019-08-05] VITALS (7 sets, daily range): BP systolic 99–154; BP diastolic 51–67
[~2019-08-05] VITALS: Ht 167.6 cm; Wt 58.7 kg
[2019-08-05] MEDS ORDERED: diphenhydrAMINE 25 MG CAP PO ONE (10:15)
[2019-08-05] MEDS ORDERED: methylPREDNISolone INJ 125 MG/2 ML VIAL (J2930) IV PRN (10:15)
[2019-08-05] MEDS ORDERED: ACETAMINOPHEN TAB 650MG DOSE (2X325MG) PO ONE (10:15)
[2019-08-05] MEDS ORDERED: diphenhydrAMINE INJ 50MG/ML VIAL (J1200) IV PRN (10:15)
[2019-08-05] MEDS ORDERED: ACETAMINOPHEN TAB 650MG DOSE (2X325MG) PO PRN (10:15)
[2019-08-05] MEDS ORDERED: diphenhydrAMINE 25 MG CAP PO PRN (10:15)
[2019-08-05] MEDS ORDERED: dexameTHASONE 20 MG/5 ML VIAL (J1100) IV ONE (10:15)
[2019-08-05] MEDS ORDERED: HYDROCORTISONE 100 MG/2 ML VIAL (J1720) IV PRN (10:15)
[2019-08-05] MEDS ORDERED: riTUXimab 500 MG in NS 450 ML IV ONE (10:30)
[2019-08-05] MEDS ORDERED: RITU50VL IM (14:47)
== END 2019-08-05 15:30 | disposition home or self-care (01) ==
LOC: M INFU 09:25
PROVIDERS: ATTEND Internal Medicine
DX: M31.0 Hypersensitivity angiitis (principal)
CPT/HCPCS: 96375; 96413; 96415; J1100; J9312

== ENCOUNTER → 2019-10-23 | Outpatient (REF) | payer MEDICARE, MEDICAID ==
[~2019-10-23] MED LIST changes: +RITU50VL IM; -SULF1TAB72 PO; +SULF400T14 PO
[2019-10-23 13:32] LABS: BASO % 0.5 % (0.0-1.0); EOS # 0.1 10^3/uL (0.0-0.5); EOS % 3.3 % (0.0-3.0); HEMATOCRIT 30.7 % (36.0-47.0); HEMOGLOBIN 9.2 g/dl (12.0-15.5); LYMPH # 0.9 10^3/uL (1.5-5.0); LYMPH % 23.1 % (24.0-44.0); MEAN CORPUSCULAR HEMOGLOBIN 29.8 pg (27.0-33.0); MEAN CORPUSCULAR VOLUME 99.4 fl (80.0-96.0); MONO # 0.4 10^3/uL (0.0-0.8); MONO % 9.5 % (0.0-5.0); NEUTROPHILS # 2.5 10^3/uL (1.5-8.5); NEUTROPHILS % 63.3 % (36.0-66.0); PLATELET COUNT, AUTOMATED 123 10^3/uL (150-450); RED BLOOD COUNT 3.09 10^6/uL (4.00-5.40)
[2019-10-23 14:11] LABS: ALBUMIN 3.4 GM/DL (3.2-5.2); BILIRUBIN,TOTAL 0.9 MG/DL (0.2-1.0); CALCIUM LEVEL 7.6 MG/DL (8.8-10.2); CREATININE FOR GFR 9.3 MG/DL (0.55-1.30); GLOMERULAR FILTRATION RATE 4.5 (>45); POTASSIUM SERUM 3.9 MEQ/L (3.5-5.1); TOTAL PROTEIN 5.5 GM/DL (6.4-8.2)
[2019-10-24 14:07] LABS: SSA SJOGRENS A <0.2 AI (0.0-0.9); SSB SJOGRENS B <0.2 AI (0.0-0.9)
== END ==
PROVIDERS: ATTEND Internal Medicine
DX: M31.31 Wegener's granulomatosis with renal involvement (principal)

== ENCOUNTER → 2019-10-28 | Outpatient (REF) | payer MEDICARE, MEDICAID ==
[2019-10-28 10:16] LABS: EOS # 0.2 10^3/uL (0.0-0.5); EOS % 4.2 % (0.0-3.0); HEMATOCRIT 30.5 % (36.0-47.0); HEMOGLOBIN 9.5 g/dl (12.0-15.5); LYMPH % 25.4 % (24.0-44.0); MEAN CORPUSCULAR HEMOGLOBIN 30.5 pg (27.0-33.0); MEAN CORPUSCULAR HGB CONC 31.1 g/dl (32.0-36.5); MEAN CORPUSCULAR VOLUME 98.1 fl (80.0-96.0); MONO # 0.5 10^3/uL (0.0-0.8); MONO % 12.2 % (0.0-5.0); NEUTROPHILS # 2.3 10^3/uL (1.5-8.5); PLATELET COUNT, AUTOMATED 119 10^3/uL (150-450); RED BLOOD COUNT 3.11 10^6/uL (4.00-5.40); WHITE BLOOD COUNT 4.1 10^3/uL (4.0-10.0)
== END ==
PROVIDERS: ATTEND Internal Medicine
DX: D72.819 Decreased white blood cell count, unspecified (principal)

== ENCOUNTER → 2019-11-04 | Outpatient (CLI) | payer MEDICARE, MEDICAID ==
[~2019-11-04] MED LIST changes: +ONDA-83 PO; -ONDA4TAB5 PO; +VERA120T9 PO
--- NOTE | 2019-11-04 12:11 | REP ---
CT CHEST WITHOUT CONTRAST: HISTORY: Interstitial pulmonary disease. Comparison CT studies are from September 26, 2018 and November 01, 2017. There is also a chest CT from April 03, 2017. The previously noted new areas of ground-glass opacity in the left upper lung zone region have resolved. There is coarse bilateral apical and upper lobe pleuroparenchymal fibrosis, which appears unchanged. There is a part solid nodule surrounded by ground-glass opacity in the right upper lobe visible on page 16 and 15 of 105 in series 201 of today's study. This was not previously apparent. Multiple nodular densities, which were present March 2017 have resolved. I do not see evidence of diffuse interstitial lung disease. There are areas of pleuroparenchymal fibrosis in the bases as well. No pleural or pericardial effusion is seen. No hilar or mediastinal mass or adenopathy is observed. Some vascular calcification is seen. Normal adrenals. Fusion hardware is again seen in the lower thoracic and upper lumbar spine. Multiple old rib fractures. No bony destructive lesion. IMPRESSION: Recently noted ground-glass opacities have resolved. A new partly solid nodular opacity is seen in the right apex on today's CT with the solid component measuring 3 mm. Waxing and waning pattern over time. The bibasilar interstitial changes have resolved compared to the most recent prior study. Electronically Signed by Reynaldo Alcala MD 11/04/2019 01:09 P
== END ==
LOC: M RAD 09:55
PROVIDERS: ATTEND Internal Medicine Pulmonary Disease
DX: R91.8 Other nonspecific abnormal finding of lung field (principal); J84.10 Pulmonary fibrosis, unspecified; Z98.1 Arthrodesis status

== ENCOUNTER → 2019-12-23 | Outpatient (REF) | payer MEDICARE, MEDICAID ==
[~2019-12-23] MED LIST changes: -ARTIDRO2 OU; +POLYOPD OU
[2019-12-23 13:51] LABS: FREE T4 1.18 NG/DL (0.76-1.46); THYROID STIMULATING HORMONE 2.29 uIU/ML (0.358-3.740)
== END ==
LOC: M SFHCPLAZ 10:53
PROVIDERS: ATTEND Family Medicine
DX: E89.0 Postprocedural hypothyroidism (principal)

== ENCOUNTER → 2020-03-02 | Outpatient (REF) | payer MEDICARE, MEDICAID ==
[~2020-03-02] MED LIST changes: +AMLO10TA PO; +HYDR-3910 PO; +LISI-538 PO; +MIACALCIN
[2020-03-02 09:21] LABS: BASO % 0.9 % (0.0-1.0); EOS # 0.2 10^3/uL (0.0-0.5); EOS % 4.5 % (0.0-3.0); HEMATOCRIT 37.2 % (36.0-47.0); HEMOGLOBIN 11.4 g/dl (12.0-15.5); LYMPH # 0.9 10^3/uL (1.5-5.0); LYMPH % 21.6 % (24.0-44.0); MEAN CORPUSCULAR HEMOGLOBIN 28.3 pg (27.0-33.0); MEAN CORPUSCULAR HGB CONC 30.6 g/dl (32.0-36.5); MEAN CORPUSCULAR VOLUME 92.3 fl (80.0-96.0); MONO # 0.5 10^3/uL (0.0-0.8); MONO % 12.2 % (0.0-5.0); NEUTROPHILS # 2.6 10^3/uL (1.5-8.5); NEUTROPHILS % 60.6 % (36.0-66.0); PLATELET COUNT, AUTOMATED 123 10^3/uL (150-450); RED BLOOD COUNT 4.03 10^6/uL (4.00-5.40); WHITE BLOOD COUNT 4.3 10^3/uL (4.0-10.0)
[2020-03-02 09:51] LABS: ALBUMIN 3.3 GM/DL (3.2-5.2); BILIRUBIN,TOTAL 0.7 MG/DL (0.2-1.0); C REACTIVE PROTEIN QUANTITATIV 0.54 MG/DL (0.00-0.30); CALCIUM LEVEL 8.2 MG/DL (8.8-10.2); CREATININE FOR GFR 6.49 MG/DL (0.55-1.30); GLOMERULAR FILTRATION RATE 6.8 (>45); POTASSIUM SERUM 3.4 MEQ/L (3.5-5.1); TOTAL PROTEIN 5.8 GM/DL (6.4-8.2)
== END ==
PROVIDERS: ATTEND Internal Medicine
DX: M31.30 Wegener's granulomatosis without renal involvement (principal)

== ENCOUNTER → 2020-03-05 | Outpatient (CLI) | payer MEDICARE, MEDICAID ==
[~2020-03-05] MED LIST changes: +ISOVUE-300 61% 50ML VIAL As Ordered ONE; +LIDOCAINE 1% MDV 20ML VIAL As Ordered ONE; +MIDAZOLAM INJ 2MG/2ML VIAL (J2250 PER 1MG) As Ordered ONE; +fentaNYL 100 MCG/2 ML INJECTION (J3010) As Ordered ONE
--- NOTE | 2020-03-05 16:54 | ROOPDOC ---
[facility] Report Of Operation Report of Operation DATE OF PROCEDURE: 03/05/20 PREPROCEDURE DIAGNOSES: End-stage renal disease with increased bleeding after dialysis access POSTPROCEDURE DIAGNOSES: Same PROCEDURE: 1. Ultrasound-guided access right brachiocephalic fistula 2. Right upper extremity fistulogram and central venogram 3. Angioplasty cephalic vein with 8 x 100 [place] balloon 4. Completion venogram SURGEON: Carey Alejo MD ANESTHESIA: Local anesthesia 1 mL lidocaine. No sedation was used for this procedure. INDICATION FOR PROCEDURE: Ms. Jim is a very pleasant 69-year-old patient with end-stage renal disease has had increased bleeding with dialysis treatments, and after treatments. She says this has been going on for about 3 weeks. Also, she says that she has had bleeding around her needle starting treatment at her last visit. Risks benefits and alternatives to a fistulogram and potential venogram were explained to the patient. She does have a good thrill and no pulsatility noted on exam, so I told her this may be something more related to her access and the stent in her fistula then it is too obstruction. She understands this but we would be happy to provide a fistulogram to see if there is anything we can improve. She is agreeable to this plan informed consent was obtained. INTERPRETATION: 1. Ultrasound examination of the AV access reveals a widely patent arteriovenous anastomosis. 2. The cephalic vein is widely patent through the upper arm and the central vein s are widely patent. There is some mild in-stent stenosis at the proximal end of the stent, but otherwise the stent is widely patent. The patient has a history of a cephalic vein stent placed by another provider near her AV anastomosis. 3. After angioplasty of the cephalic vein stent, there is widely patent inflow through the fistula, still an excellent thrill, no signs of stenosis elsewhere. There is no extravasation or embolization noted. REPORT OF OPERATION: The patient was brought to the angiographic suite in stable condition. Her right upper extremity was prepped and draped in a sterile fashion. A timeout was performed. Local anesthesia was a hse specialist to the skin and subcutaneous tissue over the cephalic vein near the AV anastomosis. Ultrasound was used to examine the AV anastomosis and it was noted to be widely patent. We then used ultrasound to access the cephalic vein and a wire was passed through this access under fluoroscopic guidance. The needle was removed and a 4 Turkmen sheath was placed and flushed with saline. Next, a fistulogram and central venogram were performed. The patient tolerated this well without sedation and felt she did not need sedation for the procedure. I did not see any tight stenoses requiring intervention, but due to the concern of the patient for recent increased bleeding, I did think it was worthwhile to angioplasty across the stent near the AV anastomosis due to mild stenosis at the proximal end of the stent. Three-minute inflation was performed with an 8 x 100 [place] balloon across the stent, and following this, there was still widely patent flow through the stent with an excellent thrill and the fistula. This concluded the procedure. Local anesthesia was administered around the sheath and a [id number] Prolene suture was placed at the sheath site. The suture was secured at the sheath was removed. Good hemostasis was noted. Sterile dressings were applied. Pressure was held for 2 minutes. And the patient was taken recovery in stable condition. She is tolerated the procedure well without complication. ESTIMATED BLOOD LOSS: Approximately 1 mL. COMPLICATIONS: None. PLAN: It is okay to use the patient's fistula for dialysis. It is okay to resume her home diet medications. I'm not sure why she is having increased bleeding in the last few weeks with dialysis. It may be related to the way the needles anterior the fistula through the stent, or it may be related to how much heparin is being used for the procedure. Nevertheless, it is not related to outflow obstruction. The patient has widely patent inflow all the way through the fistula to the central veins. I discussed with her that if she continues to have problems and it is affecting her volley of life, we can talk about creating a new access, but hopefully whenever the new circumstances are that have led to the bleeding will soon resolve. She is agreeable to this plan and will let us know how she's doing. We appreciate the opportunity to participate in the care of this patient. CAREY ALEJO MD March 05, 2020 16:54
[2020-03-05 17:08] VITALS: BP 200/80
== END ==
LOC: M IRPRO 13:28
PROVIDERS: ATTEND Surgery Vascular Surgery
DX: T82.590A Other mechanical complication of surgically created arteriovenous fistula, initial encounter (principal); N18.6 End stage renal disease; X58.XXXA Exposure to other specified factors, initial encounter

== ENCOUNTER 2020-03-23 07:40 | Outpatient (CLI) | payer MEDICARE, MEDICAID ==
[~2020-03-23] VITALS: Ht 167.6 cm; Wt 58.0 kg
[2020-03-23] VITALS (9 sets, daily range): BP systolic 142–189; BP diastolic 65–77
[~2020-03-23 07:40] MED LIST changes: -ISOVUE-300 61% 50ML VIAL As Ordered ONE; -LIDOCAINE 1% MDV 20ML VIAL As Ordered ONE; -MIDAZOLAM INJ 2MG/2ML VIAL (J2250 PER 1MG) As Ordered ONE; -fentaNYL 100 MCG/2 ML INJECTION (J3010) As Ordered ONE
[2020-03-23] MEDS ORDERED: riTUXimab (INITIAL INFUSION) IV ONE ×2 (08:00)
[2020-03-23] MEDS ORDERED: ACETAMINOPHEN TAB 650MG DOSE (2X325MG) PO ONE (08:15)
[2020-03-23] MEDS ORDERED: diphenhydrAMINE 25MG CAP PO ONE (08:15)
[2020-03-23] MEDS ORDERED: methylPREDNISolone INJ 125 MG/2 ML VIAL (J2930) IV PRN (08:15)
[2020-03-23] MEDS ORDERED: dexameTHASONE 20MG/5ML VIAL (J1100 PER 1MG) IV ONE (08:15)
[2020-03-23] MEDS ORDERED: HYDROCORTISONE 100 MG/2 ML VIAL (J1720 PER 1) IV PRN (08:15)
[2020-03-23] MEDS ORDERED: diphenhydrAMINE 50MG/ML VIAL (J1200) IV PRN (08:15)
[2020-03-23] MEDS ORDERED: ACETAMINOPHEN TAB 650MG DOSE (2X325MG) PO PRN (08:15)
== END 2020-03-23 15:12 | disposition home or self-care (01) ==
LOC: M INFU 07:40
PROVIDERS: ATTEND Internal Medicine
DX: M31.30 Wegener's granulomatosis without renal involvement (principal)
CPT/HCPCS: 96375; 96413; 96415; J1100; J9312

== ENCOUNTER → 2020-04-06 | Outpatient (REF) | payer MEDICARE, MEDICAID ==
[2020-04-06 09:51] LABS: BASO % 0.5 % (0.0-1.0); EOS # 0.1 10^3/uL (0.0-0.5); HEMOGLOBIN 10.3 g/dl (12.0-15.5); LYMPH # 0.8 10^3/uL (1.5-5.0); LYMPH % 18.8 % (24.0-44.0); MEAN CORPUSCULAR HEMOGLOBIN 28.5 pg (27.0-33.0); MEAN CORPUSCULAR HGB CONC 30.3 g/dl (32.0-36.5); MEAN CORPUSCULAR VOLUME 93.9 fl (80.0-96.0); MONO # 0.4 10^3/uL (0.0-0.8); MONO % 9.5 % (0.0-5.0); NEUTROPHILS # 2.7 10^3/uL (1.5-8.5); NEUTROPHILS % 67.9 % (36.0-66.0); RED BLOOD COUNT 3.62 10^6/uL (4.00-5.40)
[2020-04-06 09:55] LABS: PLATELET COUNT, AUTOMATED 99 10^3/uL (150-450)
[2020-04-06 10:14] LABS: ERYTHROCYTE SEDIMENTATION RATE 12 mm/hr (0-30)
[2020-04-06 10:20] LABS: ALBUMIN 3.4 GM/DL (3.2-5.2); BILIRUBIN,TOTAL 1.3 MG/DL (0.2-1.0); C REACTIVE PROTEIN QUANTITATIV 1.04 MG/DL (0.00-0.30); CALCIUM LEVEL 8.1 MG/DL (8.8-10.2); CREATININE FOR GFR 6.48 MG/DL (0.55-1.30); GLOMERULAR FILTRATION RATE 6.8 (>45); POTASSIUM SERUM 3.6 MEQ/L (3.5-5.1); TOTAL PROTEIN 5.9 GM/DL (6.4-8.2)
== END ==
PROVIDERS: ATTEND Internal Medicine
DX: Z79.899 Other long term (current) drug therapy (principal)

== ENCOUNTER → 2020-05-11 | Outpatient (CLI) | payer MEDICARE, MEDICAID ==
[~2020-05-11] MED LIST changes: -ALL10TAB29 PO; -AMLO10TA5; +AMLO1TAB24 PO; +AMLO1TAB25; -AMLO5TAB6 PO; +CETI-24 PO; +PANT40TA29 PO; -PANT40TA3 PO; -PROC5TA PO; +PROC5TAB57 PO; +SIME80TA12 PO; -SIME80TA5 PO
--- NOTE | 2020-05-11 08:27 | REP ---
Clinical: History of Andrey's granulomatosis. Technique: Axial noncontrast images from the thoracic inlet to the upper abdomen with coronal and sagittal re-formations. Comparison: 11/04/2019. Findings: Biapical scarring with somewhat nodular components is again identified and remains stable through 09/26/2018. The lung plummer demonstrate subtle scattered primarily peripheral areas of ground-glass opacity which are increased from 11/04/2019. No associated areas of consolidation, nodule or mass lesion noted. No effusion. No significant adenopathy. Further evaluation of the mediastinum demonstrates stable mild atherosclerotic changes to the thoracic aorta and coronary arteries. No cardiomegaly or significant pericardial effusion noted. Musculoskeletal structures are intact/stable and without acute process. Impression: 1. Stable biapical scarring. 2. Subtle scattered peripheral ground-glass opacities moderately increased when compared to 11/04/2019. No associated areas of consolidation, nodule or mass lesion noted. Electronically Signed by Junior Delgado MD 05/11/2020 08:19 A
== END ==
LOC: M RAD 07:23
PROVIDERS: ATTEND Physician Assistant
DX: M31.30 Wegener's granulomatosis without renal involvement (principal)

== ENCOUNTER → 2020-05-25 | Outpatient (REF) | payer MEDICARE, MEDICAID ==
[2020-06-21 11:07] LABS: ERYTHROCYTE SEDIMENTATION RATE 19 mm/hr (0-30)
[2020-06-21 20:28] LABS: BASO % 0.9 % (0.0-1.0); EOS # 0.2 10^3/uL (0.0-0.5); EOS % 4.5 % (0.0-3.0); HEMATOCRIT 30.8 % (36.0-47.0); HEMOGLOBIN 9.7 g/dl (12.0-15.5); LYMPH # 0.9 10^3/uL (1.5-5.0); MEAN CORPUSCULAR HEMOGLOBIN 28.6 pg (27.0-33.0); MEAN CORPUSCULAR HGB CONC 31.5 g/dl (32.0-36.5); MEAN CORPUSCULAR VOLUME 90.9 fl (80.0-96.0); MONO # 0.4 10^3/uL (0.0-0.8); MONO % 11.6 % (0.0-5.0); NEUTROPHILS % 57.7 % (36.0-66.0); PLATELET COUNT, AUTOMATED 117 10^3/uL (150-450); RED BLOOD COUNT 3.39 10^6/uL (4.00-5.40); WHITE BLOOD COUNT 3.5 10^3/uL (4.0-10.0)
[2020-07-10 09:41] LABS: ALBUMIN 3.5 GM/DL (3.2-5.2); BILIRUBIN,TOTAL 0.8 MG/DL (0.2-1.0); C REACTIVE PROTEIN QUANTITATIV 0.32 MG/DL (0.00-0.30); CALCIUM LEVEL 8.6 MG/DL (8.8-10.2); CREATININE FOR GFR 7.44 MG/DL (0.55-1.30); GLOMERULAR FILTRATION RATE 5.8 (>45); POTASSIUM SERUM 3.9 MEQ/L (3.5-5.1); TOTAL PROTEIN 5.5 GM/DL (6.4-8.2)
== END ==
PROVIDERS: ATTEND Internal Medicine
DX: Z51.81 Encounter for therapeutic drug level monitoring (principal); Z79.899 Other long term (current) drug therapy

== ENCOUNTER → 2020-05-27 | Outpatient (REF) | PROVIDERS: ATTEND Internal Medicine Nephrology | DX: N18.6 End stage renal disease (principal); C90.00 Multiple myeloma not having achieved remission; D63.1 Anemia in chronic kidney disease ==

== ENCOUNTER 2020-05-28 09:00 | Outpatient (CLI) | payer MEDICARE, MEDICAID ==
[2020-05-28] MEDS ORDERED: diphenhydrAMINE 25MG CAP As Ordered ONE (09:15)
[2020-05-28] MEDS ORDERED: diphenhydrAMINE 25MG CAP ONE (09:15)
== END 2020-05-28 14:00 | disposition home or self-care (01) ==
LOC: M INFU 09:00
PROVIDERS: ATTEND Student in an Organized Health Care Education/Training Program
DX: C90.00 Multiple myeloma not having achieved remission (principal); N18.6 End stage renal disease; D63.1 Anemia in chronic kidney disease
CPT/HCPCS: 36430; P9016

== ENCOUNTER → 2020-06-08 | Outpatient (CLI) | payer MEDICARE, MEDICAID ==
[~2020-06-08] MED LIST changes: +ISOVUE-300 61% 50ML VIAL As Ordered ONE; +LIDOCAINE 1% MDV 20ML VIAL As Ordered ONE; +MIDAZOLAM INJ 2MG/2ML VIAL (J2250 PER 1MG) As Ordered ONE; +fentaNYL 100 MCG/2 ML INJECTION (J3010) As Ordered ONE; +hydrALAZINE 20MG/ML 1ML VIAL (J0360 PER 20MG) As Ordered ONE
--- NOTE | 2020-08-27 19:30 | ROOPDOC ---
[facility] Report Of Operation Report of Operation DATE OF PROCEDURE: 06/08/20 PREPROCEDURE DIAGNOSES: End-stage renal disease with difficulty cannulating right brachiocephalic AV fistula POSTPROCEDURE DIAGNOSES: Same PROCEDURE: 1. Ultrasound-guided access right cephalic vein 2. Right upper extremity fistulogram and central venogram 3. Angioplasty cephalic vein with 8 x 100 Lawrence balloon 4. Angioplasty right subclavian vein with 8 x 100 Lawrence balloon and 12 x 40 Lawrence balloon 5. Completion venogram SURGEON: Carey Alejo MD ANESTHESIA: Local anesthesia 1 mL lidocaine. Moderate intravenous conscious sedation was administered by Dr. Alejo. The patient was independently monitored by registered nurse his time to the Department of radiology using automated blood pressure, EKG, and pulse oximetry. The detailed sedation records permanently stored in the hospital information system. The following is a brief sedation record: Start time 12:12, stop time 12:42, Versed 1 mg IV, fentanyl 25 g IV. CONTRAST: 20 mL Isovue-300 INDICATION FOR PROCEDURE: This is a very pleasant 69-year-old patient with end- stage renal disease Suess had difficulty with cannulation in her right brachiocephalic AV fistula. This was placed by another provider and also had a stent placed in the cephalic vein near the AV anastomosis, which makes cannulation very challenging for the nurses. Unfortunately, once status and placed there is nothing we can do to remove it. Risks benefits alternatives to a fistulogram were explained to patient she is agreeable to proceed. Informed consent was obtained. INTERPRETATION: 1. The AV anastomosis is widely patent on ultrasound. 2. Fistulogram of the right upper extremity reveals some stenosis in the cephalic vein stent proximally, and also a 40% stenosis and the subclavian vein on the right at the thoracic outlet. Other than that, the cephalic vein subclavian vein and central veins are widely patent. 3. After angioplasty of the proximal stent and cephalic vein with an 8 x 100 Lawrence balloon, there is widely patent flow with no extravasation and no significant residual stenosis. 4. After angioplasty of the thoracic alley with an 8 x 100 Lawrence balloon, there is still some residual stenosis and we upsized to a 12 x 40 Lawrence balloon and following a three-minute inflations, there is no extravasation but widely patent flow and an excellent thrill in the fistula with no significant residual stenosis. REPORT OF OPERATION: Patient was brought angiographic suite in stable condition. Her right upper extremity was prepped and draped in a sterile fashion. A timeout was performed. Local anesthesia was administered to the skin and subcutaneous tissue over the right cephalic vein near the AV anastomosis. Ultrasound was used to examine the AV anastomosis and it was noted to be widely patent. We used ultrasound access the fistula and placed a 4 Bolivian sheath and flushed the sheath with saline. A fistulogram and central venogram were performed, please see interpretation above. We advanced a Glidewire through the access and exchanges sheath for a 7 Bolivian sheath and flushed the sheath with saline. We angioplasty with an 8 x 100 balloon at the cephalic vein at the proximal stent and also at the subclavian vein, please see interpretation above. We then exchanged the balloon for a 12 x 40 Lawrence balloon to angioplasty the subclavian thoracic outlet stenosis for three-minute inflations. Following this there was widely patent flow with an excellent thrill and the fistula no significant residual stenosis. This concluded the procedure. Local anesthesia was ministered around the sheath in a [id number] Prolene suture was placed and secured as the sheath was removed. Pressure was held in sterile dressings were applied and good hemostasis was noted. The patient was taken to recovery in stable condition. She tolerated the procedure and the sedation well. ESTIMATED BLOOD LOSS: Approximately 2 mL. COMPLICATIONS: None. PLAN: It is okay to use the fistula for dialysis. Okay to resume home diet and medications. We appreciate the opportunity to participate in the care of this patient. CAREY ALEJO MD Aug 27, 2020 19:30
== END ==
LOC: M RAD 10:56 → M IRPRO 10:56
PROVIDERS: ATTEND Physician Assistant
DX: N18.6 End stage renal disease (principal)
CPT/HCPCS: 37246; 99152; 99153; C1725; C1769; C1894; J0360; J1644; J2250; J3010; Q9967

== ENCOUNTER 2020-07-06 09:36 | Outpatient (CLI) | payer MEDICARE, MEDICAID ==
[2020-07-06] VITALS (8 sets, daily range): BP systolic 151–193; BP diastolic 67–83
[~2020-07-06] VITALS: Ht 160 cm; Wt 74.0 kg
[~2020-07-06 09:36] MED LIST changes: +ACETAMINOPHEN TAB 650MG DOSE (2X325MG) PO PRN; +HYDROCORTISONE 100 MG/2 ML VIAL (J1720 PER 1) IV PRN; -ISOVUE-300 61% 50ML VIAL As Ordered ONE; -LIDOCAINE 1% MDV 20ML VIAL As Ordered ONE; -MIDAZOLAM INJ 2MG/2ML VIAL (J2250 PER 1MG) As Ordered ONE; +diphenhydrAMINE 25MG CAP PO PRN; +diphenhydrAMINE 50MG/ML VIAL (J1200) IV PRN; -fentaNYL 100 MCG/2 ML INJECTION (J3010) As Ordered ONE; -hydrALAZINE 20MG/ML 1ML VIAL (J0360 PER 20MG) As Ordered ONE; +methylPREDNISolone 125MG 2ML VIAL IV PRN
[2020-07-06] MEDS ORDERED: dexameTHASONE 4 MG/ML 1ML VIAL (J1100 PER 1MG) IV ONE (10:00)
[2020-07-06] MEDS ORDERED: riTUXimab (SUBSEQUENT INFUSIONS) IV ONE ×2 (10:00)
[2020-07-06] MEDS ORDERED: ACETAMINOPHEN TAB 650MG DOSE (2X325MG) PO ONE (10:00)
[2020-07-06] MEDS ORDERED: diphenhydrAMINE 25MG CAP PO ONE (10:00)
[2020-07-06] MEDS ORDERED: diphenhydrAMINE 25MG CAP As Ordered ONE (10:07)
[2020-07-06 10:38] LABS: HEMATOCRIT 30.5 % (36.0-47.0); HEMOGLOBIN 9.9 g/dl (12.0-15.5); MEAN CORPUSCULAR HEMOGLOBIN 29.6 pg (27.0-33.0); MEAN CORPUSCULAR HGB CONC 32.5 g/dl (32.0-36.5); PLATELET COUNT, AUTOMATED 123 10^3/uL (150-450); RED BLOOD COUNT 3.35 10^6/uL (4.00-5.40); WHITE BLOOD COUNT 8.7 10^3/uL (4.0-10.0)
[2020-07-06 11:10] LABS: ALBUMIN 3.5 GM/DL (3.2-5.2); BILIRUBIN,TOTAL 0.7 MG/DL (0.2-1.0); C REACTIVE PROTEIN QUANTITATIV 0.3 MG/DL (0.00-0.30); CALCIUM LEVEL 7.9 MG/DL (8.8-10.2); CREATININE FOR GFR 7.41 MG/DL (0.55-1.30); ERYTHROCYTE SEDIMENTATION RATE 10 mm/hr (0-30); GLOMERULAR FILTRATION RATE 5.8 (>45); POTASSIUM SERUM 3.5 MEQ/L (3.5-5.1); TOTAL PROTEIN 5.8 GM/DL (6.4-8.2)
== END 2020-07-06 13:30 | disposition home or self-care (01) ==
LOC: M INFU 09:36
PROVIDERS: ATTEND Internal Medicine
DX: M31.30 Wegener's granulomatosis without renal involvement (principal)
CPT/HCPCS: 36415; 80053; 85027; 85652; 86140; 96375; 96413; 96415; J1100; J9312

== ENCOUNTER 2020-07-13 07:46 | Outpatient (CLI) | payer MEDICARE, MEDICAID ==
[~2020-07-13] VITALS: Ht 160 cm; Wt 74.0 kg
[2020-07-13] VITALS (9 sets, daily range): BP systolic 144–197; BP diastolic 67–88
[~2020-07-13 07:46] MED LIST changes: -ACETAMINOPHEN TAB 650MG DOSE (2X325MG) PO PRN; -HYDROCORTISONE 100 MG/2 ML VIAL (J1720 PER 1) IV PRN; -diphenhydrAMINE 25MG CAP PO PRN; -diphenhydrAMINE 50MG/ML VIAL (J1200) IV PRN; -methylPREDNISolone 125MG 2ML VIAL IV PRN
[2020-07-13] MEDS ORDERED: diphenhydrAMINE 25MG CAP As Ordered ONE (07:58)
[2020-07-13] MEDS ORDERED: dexameTHASONE 20MG/5ML VIAL (J1100 PER 1MG) IV ONE (08:00)
[2020-07-13] MEDS ORDERED: diphenhydrAMINE 25MG CAP PO ONE (08:00)
[2020-07-13] MEDS ORDERED: HYDROCORTISONE 100 MG/2 ML VIAL (J1720 PER 1) IV PRN ×2 (08:00)
[2020-07-13] MEDS ORDERED: dexameTHASONE 20MG/5ML VIAL (J1100 PER 1MG) As Ordered ONE (08:00)
[2020-07-13] MEDS ORDERED: RITUXIMAB IV ONE (08:00)
[2020-07-13] MEDS ORDERED: methylPREDNISolone 125MG 2ML VIAL IV PRN (08:00)
[2020-07-13] MEDS ORDERED: diphenhydrAMINE 25MG CAP PO PRN ×2 (08:00)
[2020-07-13] MEDS ORDERED: ACETAMINOPHEN TAB 650MG DOSE (2X325MG) PO ONE (08:00)
[2020-07-13] MEDS ORDERED: ACETAMINOPHEN TAB 650MG DOSE (2X325MG) PO PRN (08:00)
[2020-07-13] MEDS ORDERED: diphenhydrAMINE 50MG/ML VIAL (J1200) IV PRN ×2 (08:00)
[2020-07-13] MEDS ORDERED: NS IV ONE (08:00)
== END 2020-07-13 14:00 | disposition home or self-care (01) ==
LOC: M INFU 07:46
PROVIDERS: ATTEND Internal Medicine
DX: M31.30 Wegener's granulomatosis without renal involvement (principal)
CPT/HCPCS: 96375; 96413; 96415; J1100; J9312

== ENCOUNTER 2020-07-20 07:39 | Outpatient (CLI) | payer MEDICARE, MEDICAID ==
[~2020-07-20] VITALS: Ht 160 cm; Wt 74.0 kg
[~2020-07-20 07:39] MED LIST changes: +ACETAMINOPHEN TAB 650MG DOSE (2X325MG) PO PRN; +HYDROCORTISONE 100 MG/2 ML VIAL (J1720 PER 1) IV PRN; +diphenhydrAMINE 25MG CAP PO PRN; +diphenhydrAMINE 50MG/ML VIAL (J1200) IV PRN; +methylPREDNISolone 125MG 2ML VIAL IV PRN
[2020-07-20 07:50] VITALS: BP 162/80
[2020-07-20] MEDS ORDERED: ACETAMINOPHEN 650MG ER TAB (TYLENOL ARTHRITIS) PO ONE (08:00)
[2020-07-20] MEDS ORDERED: diphenhydrAMINE 50MG/ML VIAL (J1200) IV PRN (08:00)
[2020-07-20] MEDS ORDERED: NS IV ONE (08:00)
[2020-07-20] MEDS ORDERED: HYDROCORTISONE 100 MG/2 ML VIAL (J1720 PER 1) IV ONE (08:00)
[2020-07-20] MEDS ORDERED: RITUXIMAB IV ONE (08:00)
[2020-07-20] MEDS ORDERED: ACETAMINOPHEN 650MG PO PRIOR TO INFUSION PO ONE (08:00)
[2020-07-20] MEDS ORDERED: dexameTHASONE 20MG/5ML VIAL (J1100 PER 1MG) IV ONE (08:00)
[2020-07-20] MEDS ORDERED: methylPREDNISolone 125MG 2ML VIAL IV PRN (08:00)
[2020-07-20] MEDS ORDERED: diphenhydrAMINE 25MG PO PRIOR TO INFUSION PO ONE (08:00)
[2020-07-20] MEDS ORDERED: diphenhydrAMINE 25MG CAP PO ONE (08:00)
[2020-07-20 08:30] VITALS: BP 162/80
[2020-07-20 09:01] VITALS: BP 152/70
[2020-07-20 10:00] VITALS: BP 156/74
[2020-07-20 12:00] VITALS: BP 154/72
== END 2020-07-20 12:05 | disposition home or self-care (01) ==
LOC: M INFU 07:39
PROVIDERS: ATTEND Internal Medicine
DX: M31.30 Wegener's granulomatosis without renal involvement (principal); Z88.8 Allergy status to other drugs, medicaments and biological substances
CPT/HCPCS: 96375; 96413; 96415; J1100; J9312

== ENCOUNTER 2020-07-27 07:40 | Outpatient (CLI) | payer MEDICARE, MEDICAID ==
[2020-07-27] VITALS (7 sets, daily range): BP systolic 162–177; BP diastolic 70–79
[~2020-07-27] VITALS: Ht 160 cm; Wt 74.0 kg
[~2020-07-27 07:40] MED LIST changes: -ACETAMINOPHEN TAB 650MG DOSE (2X325MG) PO PRN; -HYDROCORTISONE 100 MG/2 ML VIAL (J1720 PER 1) IV PRN; -diphenhydrAMINE 25MG CAP PO PRN; -diphenhydrAMINE 50MG/ML VIAL (J1200) IV PRN; -methylPREDNISolone 125MG 2ML VIAL IV PRN
[2020-07-27] MEDS: ACETAMINOPHEN TAB 650MG DOSE (2X325MG) PO ONE (07:51)
[2020-07-27] MEDS ORDERED: methylPREDNISolone 125MG 2ML VIAL IV PRN (08:00)
[2020-07-27] MEDS ORDERED: diphenhydrAMINE 50MG/ML VIAL (J1200) IV PRN (08:00)
[2020-07-27] MEDS ORDERED: ACETAMINOPHEN TAB 650MG DOSE (2X325MG) PO PRN (08:00)
[2020-07-27] MEDS: diphenhydrAMINE 25MG CAP PO ONE (08:00)
[2020-07-27] MEDS ORDERED: HYDROCORTISONE 100 MG/2 ML VIAL (J1720 PER 1) IV PRN (08:00)
[2020-07-27] MEDS: dexameTHASONE 4 MG/ML 1ML VIAL (J1100 PER 1MG) IV ONE (08:16)
[2020-07-27] MEDS: riTUXimab (SUBSEQUENT INFUSIONS) IV ONE ×3 (08:35)
== END 2020-07-27 12:05 | disposition home or self-care (01) ==
LOC: M INFU 07:40
PROVIDERS: ATTEND Internal Medicine
DX: M31.30 Wegener's granulomatosis without renal involvement (principal)
CPT/HCPCS: 96375; 96413; 96415; J1100; J9312

== ENCOUNTER → 2020-08-17 | Outpatient (CLI) | payer MEDICARE, MEDICAID ==
[~2020-08-17] MED LIST changes: +ISOVUE-300 61% 50ML VIAL As Ordered ONE; +LIDOCAINE 1% MDV 20ML VIAL As Ordered ONE; +MIDAZOLAM INJ 2MG/2ML VIAL (J2250 PER 1MG) As Ordered ONE; +fentaNYL 100 MCG/2 ML INJECTION (J3010) As Ordered ONE
--- NOTE | 2020-08-17 14:36 | ROOPDOC ---
[facility] Report Of Operation Report of Operation DATE OF PROCEDURE: 08/17/20 PREPROCEDURE DIAGNOSES: End-stage renal disease with difficulty cannulating and increased bleeding right brachiobasilic AV fistula POSTPROCEDURE DIAGNOSES: Same PROCEDURE: 1. Ultrasound-guided access right basilic vein 2. Right fistulogram and central venogram SURGEON: Stephany Alejo MD ANESTHESIA: Local anesthesia 2 mL lidocaine. Sedation not utilized for this procedure. INDICATION FOR PROCEDURE: This is a very pleasant 69-year-old patient with end- stage renal disease he's had quite a bit of trouble with her right br achiobasilic AV fistula. This was placed by another provider, is status post transposition, and is also status post a stent placed in the basilic vein proximal to the AV anastomosis. The nurses are still having trouble with cannulation, and still having trouble with bleeding some times after dialysis. Risks benefits alternatives to fistulogram potential intervention were explained to the patient and she is agreeable to proceed. Informed consent was obtained. INTERPRETATION: 1. Ultrasound was used to examine the AV anastomosis and it is widely patent. Also the stent in the basilic vein proximal to the AV anastomosis is widely patent. There is a little bit of intimal thickening, but overall it is patent. 2. The basilic vein is widely patent and runs off through the axillary vein and the subclavian vein with widely patent central veins as well. There is no stenosis noted and the vein has excellent flow, rapid back to the heart. The vein proximally is large in diameter and I estimate 12-14 mm diameter. REPORT OF OPERATION: Patient was brought to the angiographic suite in stable condition. Her right upper extremity is prepped and draped in sterile fashion. A timeout was performed. Local anesthesia was administered to the skin and subcutaneous tissue over the right basilic vein. Ultrasound was used to examine the AV anastomosis was noted to be widely patent. We then accessed the basilic vein near the AV anastomosis with a microneedle. A wire was passed through this access needle was removed and a 4 Bulgarian sheath was placed and flushed with saline. Fistula gram and central venogram were performed. Please interpretation above. Local anesthesia was administered around sheath and a 4-0 Prolene suture was used to [id number] pattern to close the anatomy after removal of the sheath. Pressure was held and sterile dressings were applied. Good hemostasis was noted. We then utilized ultrasound to darin the fistula on the arm. Unfortunately, over the biceps further proximal to the area of normal access, the fistula is approximately 1 cm deep, which may be too deep for the nurses to cannulate. This is likely why they have trouble when he try to cannulate proximally. In the areas of frequent cannulation, the patient has excellent thrill, from now, I recommend using the area that is easy to stick. ESTIMATED BLOOD LOSS: Approximately 2 mL. COMPLICATIONS: None. PLAN: Okay to use AV access for dialysis right upper extremity. Unfortunately, the vein is a little bit deep more proximal and will be difficult to cannulate. I did give the patient the option for new access, but he to do that since her access has such a good thrill and is widely patent back to the heart. One option we might entertain would be to do an Artegraft interposition between the brachial artery and the basilic vein more proximally. We could tunnel it superficially, and still take advantage of the excellent outflow. I will discuss this with the patient at her follow-up. For now continue to use the fistula at the areas of easy access. We appreciate the opportunity to participate in the care of this patient. STEPHANY ALEJO MD Aug 17, 2020 14:36
[2020-08-17 15:29] VITALS: BP 176/75
== END ==
LOC: M IRPRO 10:45
PROVIDERS: ATTEND Surgery Vascular Surgery
DX: T82.590A Other mechanical complication of surgically created arteriovenous fistula, initial encounter (principal); N18.6 End stage renal disease; I12.0 Hypertensive chronic kidney disease with stage 5 chronic kidney disease or end stage renal disease; I47.1 Supraventricular tachycardia; E03.9 Hypothyroidism, unspecified; K21.9 Gastro-esophageal reflux disease without esophagitis; M81.0 Age-related osteoporosis without current pathological fracture; J44.9 Chronic obstructive pulmonary disease, unspecified; X58.XXXA Exposure to other specified factors, initial encounter; Z79.890 Hormone replacement therapy; Z79.899 Other long term (current) drug therapy; Z88.8 Allergy status to other drugs, medicaments and biological substances; Z91.09 Other allergy status, other than to drugs and biological substances; Z99.2 Dependence on renal dialysis
CPT/HCPCS: 36901; C1769; C1894; J1642; J1644; J2250; J3010; Q9967

== ENCOUNTER → 2020-10-01 | Outpatient (REF) | payer MEDICARE, MEDICAID ==
[~2020-10-01] MED LIST changes: +AZEL1SPR3 NARES; +CALC625T13 PO; +FLUTISP NARES; +GUAIDM5UD PO; -ISOVUE-300 61% 50ML VIAL As Ordered ONE; -LIDOCAINE 1% MDV 20ML VIAL As Ordered ONE; -MIDAZOLAM INJ 2MG/2ML VIAL (J2250 PER 1MG) As Ordered ONE; +MIRT-62 PO; +MUCI60TA7 PO; +NYAM10003 TOP; -REME15TA PO; +SIME125T PO; +TUMS500C PO; +VITA200031 PO; -fentaNYL 100 MCG/2 ML INJECTION (J3010) As Ordered ONE
== END ==
PROVIDERS: ATTEND Internal Medicine
DX: Z20.828 Contact with and (suspected) exposure to other viral communicable diseases (principal)

== ENCOUNTER → 2020-10-01 | Outpatient (CLI) | payer MEDICARE, MEDICAID ==
[~2020-10-01] MED LIST changes: +LIDOCAINE W/EPINEPHRINE 1% 20ML VIAL As Ordered ONE; +MIDAZOLAM INJ 2MG/2ML VIAL (J2250 PER 1MG) As Ordered ONE; +ONDANSETRON 4MG/2ML VIAL As Ordered ONE; +ONDANSETRON 4MG/2ML VIAL IV ONE; +ceFAZolin 1GM VIAL (J0690 PER 500MG) As Ordered ONE; +fentaNYL 100 MCG/2 ML INJECTION (J3010) As Ordered ONE
--- NOTE | 2020-10-01 14:32 | ROOPDOC ---
[facility] Report Of Operation Report of Operation DATE OF PROCEDURE: 10/01/20 PREPROCEDURE DIAGNOSES: End-stage renal disease requiring revision of right upper extremity AV access and interval PermCath for dialysis POSTPROCEDURE DIAGNOSES: Same PROCEDURE: 1. Ultrasound-guided access right internal jugular vein 2. Placement of a 23 cm tunneled right IJ PermCath SURGEON: Carey Alejo MD ANESTHESIA: Local anesthesia 13 mL lidocaine. Moderate intravenous conscious sedation was supervised by Dr. Alejo. The patient was independently monitored by registered nurse assigned of the department of radiology using automated blood pressure, EKG, and pulse oximetry. The detailed sedation record is permanently stored in the hospital information system. The following is a brief sedation record: Start time 13:40, stop time 14:04, Versed 1 mg IV, fentanyl 50 g IV. INDICATION FOR PROCEDURE: This a very pleasant 69-year-old patient with end- stage renal disease who has a poorly functioning right upper extremity AV access that requires surgical revision. In the interim, she will need a PermCath for dialysis. Risks benefits and alternatives to PermCath placement were explained and the patient is agreeable to proceed. Informed consent was obtained. INTERPRETATION: The right IJ catheter is in good position with no kinks in the catheter. The tip is freely mobile at the right atrial SVC junction. There is no pneumothorax. It is okay to use the catheter for dialysis. REPORT OF OPERATION: The patient was brought to the angiographic suite in stable condition. Her right neck and chest were prepped and draped in a sterile fashion. A timeout was performed. Sedation was administered without complication. Local anesthesia was administered to the skin and subcutaneous tissue over the right neck and right chest. A microneedle was used to access the jugular vein under ultrasound guidance. A wire was passed through this access and the needle was removed and a micro-sheath was placed. Glidewire was advanced through this into the central system, first the SVC then the IVC under fluoroscopic guidance. 2 serial dilators were passed over the wire using a Seldinger technique and a peel-away sheath was placed over the wire. The inner cannula and wire were removed. Small incision was been on the right lateral chest just distal to the clavicle and a 23 cm PermCath was tunneled from the r ight chest to the jugular access site within the subcutaneous tissue. Once the cuff was within the subcutaneous tissue. The tips of the catheter were advanced through the peel-away sheath into the central system. Peel-away sheath was removed and both ports katerin back and flushed easily. The ports were heparin locked and appropriate caps were placed. The jugular site was irrigated with saline and a Monocryl suture was used to approximate the deep tissue and then too deep dermal interrupted Monocryl sutures were used to approximate the skin edges and Dermabond was placed at the skin. We then closed the exit site of the catheter on the right chest with an interrupted Prolene suture. 2 additional Prolene sutures were used to secure the catheter to the chest wall. Sterile dressings were applied. The patient was then allowed to transfer back to recovery in stable condition. She tolerated the procedure and the sedation well. ESTIMATED BLOOD LOSS: Approximately 5 mL. COMPLICATIONS: None. PLAN: It is okay to use the PermCath for dialysis. The patient can resume home diet and medications. Keep head elevated most of the day today, with multiple pillows or in a recliner. Try not to lay flat until the evening. This will diminish venous pressure and minimize bleeding. The patient has a scheduled revision of her AV fistula next month and we will see her for that procedure. We appreciate the opportunity to participate in the care of this patient. CAREY ALEJO MD Oct 01, 2020 14:32
[2020-10-01 15:00] VITALS: BP 182/83
== END ==
LOC: M IRPRO 12:49
PROVIDERS: ATTEND Surgery Vascular Surgery
DX: N18.6 End stage renal disease (principal); T82.590A Other mechanical complication of surgically created arteriovenous fistula, initial encounter; I12.0 Hypertensive chronic kidney disease with stage 5 chronic kidney disease or end stage renal disease; E03.9 Hypothyroidism, unspecified; E78.00 Pure hypercholesterolemia, unspecified; J34.89 Other specified disorders of nose and nasal sinuses; J44.9 Chronic obstructive pulmonary disease, unspecified; K21.9 Gastro-esophageal reflux disease without esophagitis; K58.9 Irritable bowel syndrome, unspecified; M81.0 Age-related osteoporosis without current pathological fracture; X58.XXXA Exposure to other specified factors, initial encounter; Z79.890 Hormone replacement therapy; Z79.899 Other long term (current) drug therapy; Z99.2 Dependence on renal dialysis; Z20.828 Contact with and (suspected) exposure to other viral communicable diseases
CPT/HCPCS: 36558; 99152; 99153; C1750; C1894; J0690; J1644; J2250; J2405; J3010; U0003

== ENCOUNTER 2020-10-03 06:30 | Emergency (ER) | payer MEDICARE, MEDICAID ==
[~2020-10-03 06:30] MED LIST changes: -CALC625T13 PO; -FLUTISP NARES; -GUAIDM5UD PO; -LIDOCAINE W/EPINEPHRINE 1% 20ML VIAL As Ordered ONE; -MIDAZOLAM INJ 2MG/2ML VIAL (J2250 PER 1MG) As Ordered ONE; -MUCI60TA7 PO; -NYAM10003 TOP; -ONDANSETRON 4MG/2ML VIAL As Ordered ONE; -ONDANSETRON 4MG/2ML VIAL IV ONE; -SIME125T PO; -TUMS500C PO; -VITA200031 PO; -ceFAZolin 1GM VIAL (J0690 PER 500MG) As Ordered ONE; -fentaNYL 100 MCG/2 ML INJECTION (J3010) As Ordered ONE
[2020-10-03 08:55] LABS: BASO % 0.7 % (0.0-1.0); EOS # 0.2 10^3/uL (0.0-0.5); HEMATOCRIT 34.2 % (36.0-47.0); HEMOGLOBIN 10.6 g/dl (12.0-15.5); LYMPH # 1.1 10^3/uL (1.5-5.0); LYMPH % 23.8 % (24.0-44.0); MEAN CORPUSCULAR HEMOGLOBIN 29.1 pg (27.0-33.0); MONO # 0.5 10^3/uL (0.0-0.8); NEUTROPHILS # 2.6 10^3/uL (1.5-8.5); NEUTROPHILS % 58.3 % (36.0-66.0); PLATELET COUNT, AUTOMATED 104 10^3/uL (150-450); RED BLOOD COUNT 3.64 10^6/uL (4.00-5.40); WHITE BLOOD COUNT 4.4 10^3/uL (4.0-10.0)
[2020-10-03] MEDS ORDERED: TUMS500C PO (09:31)
[2020-10-03] MEDS ORDERED: NYAM10003 TOP (09:31)
[2020-10-03] MEDS ORDERED: VITA200031 PO (09:31)
[2020-10-03] MEDS ORDERED: HYDR-3910 PO (09:31)
[2020-10-03] MEDS ORDERED: GUAIDM5UD PO (09:31)
[2020-10-03] MEDS ORDERED: AMLO1TAB24 PO (09:31)
[2020-10-03] MEDS ORDERED: DOCU100C16 PO (09:31)
[2020-10-03] MEDS ORDERED: LIDO2.5C15 TOP (09:31)
[2020-10-03] MEDS ORDERED: CALC625T13 PO (09:31)
[2020-10-03] MEDS ORDERED: PEG1POW PO (09:31)
[2020-10-03] MEDS ORDERED: SYNT100T PO (09:31)
[2020-10-03] MEDS ORDERED: SIME125T PO (09:31)
[2020-10-03] MEDS ORDERED: MUCI60TA7 PO (09:31)
[2020-10-03] MEDS ORDERED: RENV2TAB PO (09:31)
[2020-10-03] MEDS ORDERED: CYCL5TAB PO (09:31)
[2020-10-03] MEDS ORDERED: FLUTISP NARES (09:31)
[2020-10-03] MEDS ORDERED: CALC20SPR (09:31)
[2020-10-03 10:44] VITALS: BP 176/91
== END 2020-10-03 11:05 | disposition home or self-care (01) ==
LOC: M ED 06:30
DX: T82.838A Hemorrhage due to vascular prosthetic devices, implants and grafts, initial encounter (principal); Y92.9 Unspecified place or not applicable; Y93.9 Activity, unspecified; N18.6 End stage renal disease; J30.81 Allergic rhinitis due to animal (cat) (dog) hair and dander; J30.89 Other allergic rhinitis; Z79.899 Other long term (current) drug therapy; Z88.8 Allergy status to other drugs, medicaments and biological substances; Z88.6 Allergy status to analgesic agent; Z91.018 Allergy to other foods

== ENCOUNTER → 2020-10-06 | Outpatient (REF) | payer MEDICARE, MEDICAID ==
[~2020-10-06] MED LIST changes: +CALC625T13 PO; +FLUTISP NARES; +GUAIDM5UD PO; +MUCI60TA7 PO; +NYAM10003 TOP; +SIME125T PO; +TUMS500C PO; +VITA200031 PO
== END ==
PROVIDERS: ATTEND Internal Medicine
DX: Z20.828 Contact with and (suspected) exposure to other viral communicable diseases (principal)

== ENCOUNTER → 2020-10-11 | Outpatient (REF) | payer MEDICARE, MEDICAID | PROVIDERS: ATTEND Internal Medicine | DX: Z20.828 Contact with and (suspected) exposure to other viral communicable diseases (principal) ==

== ENCOUNTER → 2020-10-18 | Outpatient (REF) | payer MEDICARE, MEDICAID | PROVIDERS: ATTEND Internal Medicine | DX: Z20.828 Contact with and (suspected) exposure to other viral communicable diseases (principal) ==

== ENCOUNTER → 2020-10-23 | Outpatient (CLI) | payer MEDICARE, MEDICAID | LOC: M LABSMTC 11:28 | PROVIDERS: ATTEND Anesthesiology | DX: Z01.812 Encounter for preprocedural laboratory examination (principal); Z20.828 Contact with and (suspected) exposure to other viral communicable diseases ==

== ENCOUNTER → 2020-10-25 | Outpatient (REF) | payer MEDICARE, MEDICAID | PROVIDERS: ATTEND Internal Medicine | DX: Z11.52 Encounter for screening for COVID-19 (principal) ==

== ENCOUNTER 2020-10-28 06:17 | Day surgery (SDC) | payer MEDICARE, MEDICAID ==
[~2020-10-28] VITALS: Ht 167.6 cm; Wt 69.8 kg
[~2020-10-28 06:17] MED LIST changes: +LR 1,000 ML IV ONE; +ceFAZolin SOD 2 GM in IV 1 EA IV ONE
[2020-10-28] MEDS ORDERED: BUPIVACAINE/EPIN 0.25% 30 ML VIAL As Ordered ONE (07:11)
[2020-10-28] MEDS ORDERED: LIDOCAINE 2% 100MG/5ML SDV (FOR ANES.) As Ordered ONE (07:11)
[2020-10-28] MEDS ORDERED: propofoL 200 MG/20 ML VIAL As Ordered ONE (07:11)
[2020-10-28] MEDS ORDERED: fentaNYL 100 MCG/2 ML INJECTION (J3010) As Ordered ONE ×3 (07:12→11:14)
[2020-10-28] MEDS ORDERED: HEPARIN SOD (PORCINE) 5000UNITS/ML 1ML VIAL/SYRINGE As Ordered ONE ×2 (07:12→09:40)
[2020-10-28] MEDS ORDERED: MIDAZOLAM INJ 2MG/2ML VIAL (J2250 PER 1MG) As Ordered ONE (07:13)
[2020-10-28] MEDS ORDERED: BUPIVACAINE/EPIN 0.5% 30 ML VIAL As Ordered ONE (07:14)
[2020-10-28] MEDS ORDERED: ETOMIDATE INJ 20MG/10ML VIAL As Ordered ONE (07:37)
[2020-10-28] MEDS ORDERED: ePHEDrine SULFATE 25 MG/5 ML(5MG/ML) SYRINGE As Ordered ONE (08:15)
[2020-10-28] MEDS ORDERED: ONDANSETRON 4MG/2ML VIAL As Ordered ONE ×2 (09:01→11:14)
[2020-10-28] MEDS ORDERED: ACETAMINOPHEN 1000MG 100ML IV BTL (OFIRMEV) (J0131 PER 10MG) As Ordered ONE (09:01)
[2020-10-28] MEDS ORDERED: dexameTHASONE 4 MG/ML 1ML VIAL (J1100 PER 1MG) As Ordered ONE (09:01)
[2020-10-28] MEDS ORDERED: METOCLOPRAMIDE INJ 10MG/2ML VIAL (J2765 PER 1) As Ordered ONE (11:24)
[2020-10-28] MEDS ORDERED: METOCLOPRAMIDE INJ 10MG/2ML VIAL (J2765 PER 1) IV PRN (11:30)
[2020-10-28] MEDS ORDERED: LR 1,000 ML IV SCH (11:30)
[2020-10-28] MEDS ORDERED: ONDANSETRON 4MG/2ML VIAL IV PRN (11:30)
[2020-10-28] MEDS ORDERED: oxyCODONE 5MG TAB PO PRN (11:30)
[2020-10-28] MEDS ORDERED: fentaNYL 100 MCG/2 ML INJECTION (J3010) IV PRN (11:30)
[2020-10-28] MEDS ORDERED: PROMETHAZINE INJ 25 MG/ML VIAL (J2550) As Ordered ONE (11:38)
[2020-10-28] MEDS ORDERED: OXYC1TAB23 PO (11:45)
[2020-10-28] MEDS ORDERED: PROMETHAZINE INJ 25 MG/ML VIAL (J2550) IV PRN (11:45)
--- NOTE | 2020-10-28 11:56 | ROOPDOC ---
[facility] Report Of Operation Report of Operation DATE OF PROCEDURE: 10/28/20 PREPROCEDURE DIAGNOSES: End-stage renal disease with poorly functioning right upper extremity AV fistula POSTPROCEDURE DIAGNOSES: Same PROCEDURE: Revision right AV fistula with 7 mm Artegraft tunneled interposition graft brachial artery to basilic vein proximal. SURGEON: Carey Alejo MD ANESTHESIA: LMA anesthesia and local INDICATION FOR PROCEDURE: This is a very pleasant 69-year-old patient with a complicated history of AV access done by another provider. We have performed multiple fistulograms and interventions trying to maintain good flow within the graft and make it easier for the dialysis nurses to access, but they consistently or problems. Despite our best efforts, I discussed with the patient the best option was likely a temporary dialysis catheter followed by a revision of her AV fistula. Risks benefits and alternatives to an interphysician Artegraft were explained to the patient she is agreeable to proceed. Informed consent was obtained. REPORT OF OPERATION: The patient was brought to the OR in stable condition. Anesthesia and antibiotics were administered without complication. Her right upper extremity is prepped and draped in a sterile fashion. A timeout was performed. Local anesthesia was administered to the skin and subcutaneous tissue over the proximal basilic vein. His was mapped preop with ultrasound. An incision was made longitudinally over the vein and carried down through the s ubcutaneous tissue with Bovie cautery. We continued the dissection down to the basilic vein. This was skeletonized proximally and distally within the incision. Branch points were identified and Vesseloops were placed. A suture was used to ligate the vein at the distal aspect of her dissection just proximal to the branch point to allow outflow from the existing fistula. We then turned our attention to the AV anastomosis. The previous transverse incision was anesthetized and incised with the skin knife. We then carried down through the minimal tissue over the existing fistula with sharp dissection. We noted good flow in the artery and through the AV anastomosis. The vein was of a good size in this area. Therefore, I did not completely excised the graft from the artery and felt we would be able to do an interposition from the basilic vein near the AV anastomosis to the basilic vein proximal. We skeletonized the fistula within the incision. The aneurysmal portion just proximal to this was ligated an additional suture was placed through the aneurysmal area to close down so it would not be so prominent and visual at the skin. The clamp was then placed on the fistula proximal to the AV anastomosis and it was transected. We tunneled a 7 mm Artegraft over the biceps from incision to incision. The Artegraft was marked prior to tunneling to keep orientation. We then did an end end anastomosis with 5-0 Prolene suture, and care was taken to keep tension off the anastomosis to prevent a pursestring. Before the final sutures were placed, we flushed the inflow and irrigated with Saline and a clamp was placed on the graft. We then restored flow and good hemostasis at the anastomosis was noted. The proximal end of the graft was then fashioned for anastomosis to the basilic vein. The basilic vein was transected and an end-to-end anastomosis was performed with 5-0 Prolene suture. Before the final sutures are placed, we flushed the inflow and outflow and irrigated with Saline. We then restored flow and good hemostasis was noted. Both incisions were irrigated with saline. Doppler confirmed good flow through the graft the proximal vein and the artery and there was an excellent pulses at the radial artery at the wrist. The deep tissues were approximated with [id number] Vicryl sutures. The fascia was closed with a running 2-0 Vicryl suture. The skin was approximated with deep dermal interrupted 4-0 Vicryl sutures and the skin was closed with subcuticular Monocryl. Mastisol and Steri-Strips replace the length of the incision. 4 x 4 and Tegaderm were placed as a final dressing. The patient tolerated the procedure and the sedation well. ESTIMATED BLOOD LOSS: Approximately 35 mL. COMPLICATIONS: None. PLAN: It is okay for the patient to resume her home diet and medications. No strenuous exercise or heavy lifting greater than 5-10 pounds till her incisions are completely healed. If the incisions get wet, okay to have dry. Avoid tub baths or swimming or immersing the incisions for 3 weeks. Will see the patient back in 1 week to check her incision and her flow. Continue to use a squeeze ball in the right hand to improve circulation and strength in the fistula. Cont inue use a PermCath for dialysis until the graft is ready for use. We appreciate the opportunity to participate in the care of this patient. CAREY ALEJO MD Oct 28, 2020 11:56
[2020-10-28 13:35] VITALS: BP 159/74
== END 2020-10-28 14:15 | disposition home or self-care (01) ==
LOC: M SDC 06:17
PROVIDERS: ATTEND Surgery Vascular Surgery
DX: T82.590A Other mechanical complication of surgically created arteriovenous fistula, initial encounter (principal); N18.6 End stage renal disease; E03.9 Hypothyroidism, unspecified; E55.9 Vitamin D deficiency, unspecified; E78.00 Pure hypercholesterolemia, unspecified; F40.240 Claustrophobia; G47.30 Sleep apnea, unspecified; I13.2 Hypertensive heart and chronic kidney disease with heart failure and with stage 5 chronic kidney disease, or end stage renal disease; I47.1 Supraventricular tachycardia; I50.30 Unspecified diastolic (congestive) heart failure; J44.9 Chronic obstructive pulmonary disease, unspecified; J45.909 Unspecified asthma, uncomplicated; K58.9 Irritable bowel syndrome, unspecified; M31.0 Hypersensitivity angiitis; M81.0 Age-related osteoporosis without current pathological fracture; R91.1 Solitary pulmonary nodule; X58.XXXA Exposure to other specified factors, initial encounter; Z79.899 Other long term (current) drug therapy; Z86.19 Personal history of other infectious and parasitic diseases; Z88.8 Allergy status to other drugs, medicaments and biological substances; Z90.710 Acquired absence of both cervix and uterus; Z91.09 Other allergy status, other than to drugs and biological substances; Z92.21 Personal history of antineoplastic chemotherapy; Z99.2 Dependence on renal dialysis
CPT/HCPCS: 36415; 36832; 84132; C1768; J0131; J0690; J1100; J1644; J2250; J2405; J2765; J3010

== ENCOUNTER 2020-10-30 10:52 | Emergency (ER) | payer MEDICARE, MEDICAID ==
[~2020-10-30] VITALS: Ht 165.1 cm; Wt 70.0 kg
[~2020-10-30 10:52] MED LIST changes: -LR 1,000 ML IV ONE; -ceFAZolin SOD 2 GM in IV 1 EA IV ONE
[2020-10-30] MEDS ORDERED: diphenhydrAMINE 50MG/ML VIAL (J1200) IV ONE (11:15)
[2020-10-30] MEDS ORDERED: methylPREDNISolone 125MG 2ML VIAL IV ONE (11:15)
[2020-10-30] MEDS ORDERED: FAMOTIDINE IV BAG 20 MG in IV 1 EA IV ONE (11:15)
[2020-10-30 13:11] LABS: BASO % 0.7 % (0.0-1.0); EOS # 0.2 10^3/uL (0.0-0.5); EOS % 3.4 % (0.0-3.0); HEMATOCRIT 33.5 % (36.0-47.0); HEMOGLOBIN 10.1 g/dl (12.0-15.5); LYMPH # 0.9 10^3/uL (1.5-5.0); LYMPH % 16.7 % (24.0-44.0); MEAN CORPUSCULAR HEMOGLOBIN 28.6 pg (27.0-33.0); MEAN CORPUSCULAR HGB CONC 30.1 g/dl (32.0-36.5); MEAN CORPUSCULAR VOLUME 94.9 fl (80.0-96.0); MONO # 0.7 10^3/uL (0.0-0.8); MONO % 12.2 % (0.0-5.0); NEUTROPHILS # 3.7 10^3/uL (1.5-8.5); NEUTROPHILS % 66.8 % (36.0-66.0); PLATELET COUNT, AUTOMATED 112 10^3/uL (150-450); RED BLOOD COUNT 3.53 10^6/uL (4.00-5.40); WHITE BLOOD COUNT 5.6 10^3/uL (4.0-10.0)
[2020-10-30 13:29] LABS: INR 1.03; PROTHROMBIN TIME 13.8 SECONDS (12.5-14.3)
[2020-10-30 13:43] LABS: ALBUMIN 3.8 GM/DL (3.2-5.2); ALT/SGPT 7 U/L (12-78); BILIRUBIN,DIRECT < 0.1 MG/DL (0.0-0.2); BILIRUBIN,TOTAL 0.6 MG/DL (0.2-1.0); BLOOD UREA NITROGEN 21 MG/DL (7-18); CARBON DIOXIDE LEVEL 26 MEQ/L (21-32); CHLORIDE LEVEL 103 MEQ/L (98-107); CREATININE FOR GFR 5.58 MG/DL (0.55-1.30); GLUCOSE, FASTING 90 MG/DL (70-100); POTASSIUM SERUM 4.2 MEQ/L (3.5-5.1); SODIUM LEVEL 139 MEQ/L (136-145); TOTAL PROTEIN 6.1 GM/DL (6.4-8.2)
[2020-10-30] MEDS ORDERED: ACETAMINOPHEN TAB 650MG DOSE (2X325MG) PO ONE (14:00)
[2020-10-30] MEDS ORDERED: IMIPENEM/CILASTATIN 500 MG in D5W MINI-BAG PLUS 100 ML IV ONE (14:00)
[2020-10-30] MEDS ORDERED: VANCOMYCIN HCL 1,250 MG in D5W 250 ML IV ONE (14:00)
--- NOTE | 2020-10-30 14:56 | REP ---
INDICATION: cellulits COMPARISON: 12/31/2018 TECHNIQUE: Portable AP view of the chest FINDINGS: The mediastinum and cardiac silhouette are stable and within normal limits for portable technique. Double-lumen central line with tip in the SVC/right atrium. The lung plummer demonstrate chronic appearing changes without acute consolidation, effusion, or pneumothorax. Skeletal structures demonstrate bilateral healed rib fractures. IMPRESSION: Chronic appearing changes similar to prior examination. No acute cardiopulmonary process, effusion or focal consolidation appreciated. <Electronically signed by Junior Delgado > 10/30/20 [id number]
[2020-10-30] MEDS ORDERED: VANCOMYCIN HCL 750 MG, VIAL MATE ADAPTER 1 EACH in D5W 250 ML IV ONE (15:15)
[2020-10-30] MEDS ORDERED: VANCOMYCIN HCL 500 MG in D5W MINI-BAG PLUS 100 ML IV ONE (16:15)
[2020-10-30] MEDS ORDERED: DICYCLOMINE INJ 20MG/2ML (J0500) IM ONE (16:30)
[2020-10-30] MEDS ORDERED: **hydrALAZINE** 50 MG TAB PO ONE (16:30)
[2020-10-30] MEDS ORDERED: ANUS2.5C2 PR (16:34)
[2020-10-30] MEDS ORDERED: MUCI600T31 PO (16:34)
[2020-10-30] MEDS ORDERED: PROC10TA4 PO (16:34)
[2020-10-30] MEDS ORDERED: HYDR-3910 PO (16:35)
--- NOTE | 2020-10-30 19:20 | ECGEPIP ---
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
[2020-10-30 19:32] VITALS: BP 186/88
== END 2020-10-30 19:36 | disposition short-term general hospital (02) ==
LOC: EDBD 10:52 → M ED 10:52
DX: L03.113 Cellulitis of right upper limb (principal); Z87.891 Personal history of nicotine dependence; Z79.899 Other long term (current) drug therapy; Z88.8 Allergy status to other drugs, medicaments and biological substances; Z91.018 Allergy to other foods; J30.81 Allergic rhinitis due to animal (cat) (dog) hair and dander; J30.89 Other allergic rhinitis
CPT/HCPCS: 36415; 71045; 80048; 80076; 85025; 85610; 85730; 86850; 86900; 86901; 87040; 93005; 96365; 96367; 96372; 96375; 99285; J0500; J0743; J1200; J2930; J3370; U0002

== ENCOUNTER → 2020-11-01 | Outpatient (REF) | payer MEDICARE, MEDICAID ==
[~2020-11-01] MED LIST changes: +DICY20TA3 PO; +MUCI600T31 PO
== END ==
PROVIDERS: ATTEND Internal Medicine
DX: Z53.9 Procedure and treatment not carried out, unspecified reason (principal)

== ENCOUNTER → 2020-11-08 | Outpatient (REF) | payer MEDICARE, MEDICAID | PROVIDERS: ATTEND Internal Medicine | DX: Z11.52 Encounter for screening for COVID-19 (principal) ==

== ENCOUNTER → 2020-11-09 | Outpatient (REF) | payer MEDICARE, MEDICAID ==
[~2020-11-09] MED LIST changes: -LISI-538 PO; +LISI20TA33 PO; +SIME80CH5 PO; -SIME80TA PO
[2020-11-09 13:46] LABS: HEMATOCRIT 33.4 % (36.0-47.0); HEMOGLOBIN 10.3 g/dl (12.0-15.5); MEAN CORPUSCULAR HEMOGLOBIN 29.3 pg (27.0-33.0); MEAN CORPUSCULAR HGB CONC 30.8 g/dl (32.0-36.5); MEAN CORPUSCULAR VOLUME 95.2 fl (80.0-96.0); PLATELET COUNT, AUTOMATED 179 10^3/uL (150-450); RED BLOOD COUNT 3.51 10^6/uL (4.00-5.40); WHITE BLOOD COUNT 7.3 10^3/uL (4.0-10.0)
[2020-11-09 13:56] LABS: INR 0.99; PROTHROMBIN TIME 13.3 SECONDS (12.5-14.3)
[2020-11-09 13:57] LABS: PARTIAL THROMBOPLASTIN TIME 34.3 SECONDS (24.2-38.5)
== END ==
LOC: M SFHCPLAZ 09:56
PROVIDERS: ATTEND Family Medicine
DX: R23.3 Spontaneous ecchymoses (principal)
CPT/HCPCS: 36415; 85027; 85610; 85730; G0463

== ENCOUNTER → 2020-11-15 | Outpatient (REF) | payer MEDICARE, MEDICAID ==
[~2020-11-15] MED LIST changes: +LISI-538 PO; -LISI20TA33 PO; -SIME80CH5 PO; +SIME80TA PO
== END ==
PROVIDERS: ATTEND Internal Medicine
DX: Z20.822 Contact with and (suspected) exposure to COVID-19 (principal)

== ENCOUNTER → 2020-11-22 | Outpatient (REF) | payer MEDICARE, MEDICAID | PROVIDERS: ATTEND Internal Medicine | DX: Z11.52 Encounter for screening for COVID-19 (principal) ==

== ENCOUNTER → 2020-11-29 | Outpatient (REF) | payer MEDICARE, MEDICAID ==
[~2020-11-29] MED LIST changes: -LISI-538 PO; +LISI20TA33 PO; +SIME80CH5 PO; -SIME80TA PO
== END ==
PROVIDERS: ATTEND Internal Medicine
DX: Z20.822 Contact with and (suspected) exposure to COVID-19 (principal)

== ENCOUNTER → 2020-12-06 | Outpatient (REF) | payer MEDICARE, MEDICAID | PROVIDERS: ATTEND Internal Medicine | DX: Z20.822 Contact with and (suspected) exposure to COVID-19 (principal) ==

== ENCOUNTER → 2021-01-13 | Outpatient (REF) | payer MEDICARE, MEDICAID ==
[~2021-01-13] MED LIST changes: -GLUC4CHW19 PO; -PEG1POW PO; +POLY17PO18 PO; +SFHGLU4TA PO
== END ==
LOC: M SFHCPLAZ 11:08
PROVIDERS: ATTEND Family Medicine
DX: E89.0 Postprocedural hypothyroidism (principal)
CPT/HCPCS: 36415; 84443; G0463

== ENCOUNTER 2021-03-08 07:58 | Outpatient (CLI) | payer MEDICARE, MEDICAID ==
[~2021-03-08] VITALS: Ht 160 cm; Wt 68.0 kg
[~2021-03-08 07:58] MED LIST changes: +ACETAMINOPHEN TAB 650MG DOSE (2X325MG) PO PRN; +HYDROCORTISONE 100 MG/2 ML VIAL (J1720 PER 1) IV PRN; +LIDO1CRE42 TOP; -LIDO2.5C15 TOP; +diphenhydrAMINE 25MG CAP PO PRN; +diphenhydrAMINE 50MG/ML VIAL (J1200) IV PRN; +methylPREDNISolone 125MG 2ML VIAL IV PRN
[2021-03-08] MEDS ORDERED: dexameTHASONE 20MG/5ML VIAL (J1100 PER 1MG) IV ONE (08:30)
[2021-03-08] MEDS ORDERED: riTUXimab (SUBSEQUENT INFUSIONS) IV ONE ×3 (08:30)
[2021-03-08] MEDS ORDERED: ACETAMINOPHEN TAB 650MG DOSE (2X325MG) PO ONE (08:30)
[2021-03-08] MEDS ORDERED: diphenhydrAMINE 25MG CAP PO ONE (08:30)
[2021-03-08 08:51] LABS: HEMATOCRIT 39.7 % (36.0-47.0); HEMOGLOBIN 12.5 g/dl (12.0-15.5); MEAN CORPUSCULAR HEMOGLOBIN 29.9 pg (27.0-33.0); MEAN CORPUSCULAR HGB CONC 31.5 g/dl (32.0-36.5); RED BLOOD COUNT 4.18 10^6/uL (4.00-5.40); WHITE BLOOD COUNT 3.8 10^3/uL (4.0-10.0)
[2021-03-08 09:09] LABS: PLATELET COUNT, AUTOMATED 85 10^3/uL (150-450)
[2021-03-08 09:13] VITALS: BP 162/72
[2021-03-08 09:13] LABS: ERYTHROCYTE SEDIMENTATION RATE 4 mm/hr (0-30)
[2021-03-08 09:37] LABS: ALBUMIN 3.4 GM/DL (3.2-5.2); BILIRUBIN,TOTAL 0.8 MG/DL (0.2-1.0); C REACTIVE PROTEIN QUANTITATIV 0.66 MG/DL (0.00-0.30); CALCIUM LEVEL 8.3 MG/DL (8.8-10.2); CREATININE FOR GFR 6.96 MG/DL (0.55-1.30); GLOMERULAR FILTRATION RATE 6.2 (>39); POTASSIUM SERUM 4.2 MEQ/L (3.5-5.1); TOTAL PROTEIN 5.6 GM/DL (6.4-8.2)
[2021-03-08 09:45] VITALS: BP 172/78
[2021-03-08 10:15] VITALS: BP 158/68
[2021-03-08 10:45] VITALS: BP 152/72
[2021-03-08 11:30] VITALS: BP 150/68
[2021-03-08 13:15] VITALS: BP 153/68
== END 2021-03-08 13:15 | disposition home or self-care (01) ==
LOC: M INFU 07:58
PROVIDERS: ATTEND Internal Medicine
DX: M31.30 Wegener's granulomatosis without renal involvement (principal); Z88.6 Allergy status to analgesic agent; Z88.8 Allergy status to other drugs, medicaments and biological substances
CPT/HCPCS: 36415; 80053; 85027; 85049; 85055; 85652; 86140; 96375; 96413; 96415; J1100; J9312

== ENCOUNTER 2021-03-15 08:06 | Outpatient (CLI) | payer MEDICARE, MEDICAID ==
[~2021-03-15] VITALS: Ht 160 cm; Wt 68.0 kg
[~2021-03-15 08:06] MED LIST changes: +ACETAMINOPHEN 650 MG PO PO PRN; +HYDROCORTISONE 100 MG/2 ML VIAL (J1720 PER 1) IV PRN; +diphenhydrAMINE 50MG/ML VIAL (J1200) IV PRN; +methylPREDNISolone 125MG 2ML VIAL IV PRN
[2021-03-15] MEDS ORDERED: ACETAMINOPHEN 650 MG PO PO ONE (08:30)
[2021-03-15] MEDS ORDERED: dexameTHASONE 20MG/5ML VIAL (J1100 PER 1MG) IV ONE (08:30)
[2021-03-15] MEDS ORDERED: diphenhydrAMINE 25 MG PO PO ONE (08:30)
[2021-03-15 08:36] VITALS: BP 142/82
[2021-03-15 08:40] VITALS: BP 142/82
[2021-03-15 09:09] LABS: HEMOGLOBIN 10.5 g/dl (12.0-15.5); MEAN CORPUSCULAR HEMOGLOBIN 28.8 pg (27.0-33.0); MEAN CORPUSCULAR HGB CONC 30.9 g/dl (32.0-36.5); MEAN CORPUSCULAR VOLUME 93.2 fl (80.0-96.0); RED BLOOD COUNT 3.65 10^6/uL (4.00-5.40); WHITE BLOOD COUNT 4.3 10^3/uL (4.0-10.0)
[2021-03-15 09:12] LABS: PLATELET COUNT, AUTOMATED 84 10^3/uL (150-450)
[2021-03-15] MEDS ORDERED: SODIUM CHLORIDE IV ONE ×3 (09:30)
[2021-03-15] MEDS ORDERED: RITUXIMAB IV ONE ×3 (09:30)
[2021-03-15 09:39] LABS: ALBUMIN 3.5 GM/DL (3.2-5.2); BILIRUBIN,TOTAL 0.6 MG/DL (0.2-1.0); C REACTIVE PROTEIN QUANTITATIV 0.86 MG/DL (0.00-0.30); CALCIUM LEVEL 8.9 MG/DL (8.8-10.2); CREATININE FOR GFR 6.57 MG/DL (0.55-1.30); GLOMERULAR FILTRATION RATE 6.6 (>39)
[2021-03-15 09:41] LABS: ERYTHROCYTE SEDIMENTATION RATE 9 mm/hr (0-30)
[2021-03-15 10:15] VITALS: BP 146/78
[2021-03-15 10:45] VITALS: BP 162/78
[2021-03-15 10:51] LABS: ALBUMIN 3.5 GM/DL (3.2-5.2); BILIRUBIN,TOTAL 0.8 MG/DL (0.2-1.0); C REACTIVE PROTEIN QUANTITATIV 0.89 MG/DL (0.00-0.30); CALCIUM LEVEL 9.6 MG/DL (8.8-10.2); CREATININE FOR GFR 6.9 MG/DL (0.55-1.30); GLOMERULAR FILTRATION RATE 6.3 (>39); POTASSIUM SERUM 4.3 MEQ/L (3.5-5.1); TOTAL PROTEIN 5.8 GM/DL (6.4-8.2)
[2021-03-15 12:30] VITALS: BP 153/70
== END 2021-03-15 12:30 | disposition home or self-care (01) ==
LOC: M INFU 08:06
PROVIDERS: ATTEND Internal Medicine
DX: M31.30 Wegener's granulomatosis without renal involvement (principal); Z88.6 Allergy status to analgesic agent
CPT/HCPCS: 36415; 80053; 85027; 85049; 85055; 85652; 86140; 96375; 96413; 96415; J1100; J9312

== ENCOUNTER → 2021-03-15 | Outpatient (REF) | payer MEDICARE, MEDICAID ==
[~2021-03-15] MED LIST changes: -ACETAMINOPHEN TAB 650MG DOSE (2X325MG) PO PRN; -HYDROCORTISONE 100 MG/2 ML VIAL (J1720 PER 1) IV PRN; -diphenhydrAMINE 25MG CAP PO PRN; -diphenhydrAMINE 50MG/ML VIAL (J1200) IV PRN; -methylPREDNISolone 125MG 2ML VIAL IV PRN
== END ==
PROVIDERS: ATTEND Family Medicine
DX: E89.89 Other postprocedural endocrine and metabolic complications and disorders (principal)

== ENCOUNTER → 2021-03-22 | Outpatient (CLI) | payer MEDICARE, MEDICAID ==
[~2021-03-22] MED LIST changes: -ACETAMINOPHEN 650 MG PO PO PRN; -HYDROCORTISONE 100 MG/2 ML VIAL (J1720 PER 1) IV PRN; +LIDOCAINE W/EPINEPHRINE 1% 20ML VIAL As Ordered ONE; -diphenhydrAMINE 50MG/ML VIAL (J1200) IV PRN; -methylPREDNISolone 125MG 2ML VIAL IV PRN
[2021-03-22 13:00] VITALS: BP 176/75
--- NOTE | 2021-03-22 13:01 | ROOPDOC ---
[facility] Report Of Operation Report of Operation DATE OF PROCEDURE: 03/22/21 PREPROCEDURE DIAGNOSES: End-stage renal disease no longer requiring PermCath for dialysis POSTPROCEDURE DIAGNOSES: Same PROCEDURE: Removal right IJ PermCath SURGEON: Carey Alejo MD ANESTHESIA: Local anesthesia 5 mL lidocaine. INDICATION FOR PROCEDURE: This is a very pleasant 70-year-old patient with end- stage renal disease successfully dialyzing with her AV access, and no longer requires PermCath for dialysis. Risks benefits and alternatives to a PermCath removal were explained to the patient and she is agreeable to proceed. Informed consent was obtained. REPORT OF OPERATION: The patient's right neck and chest including the PermCath were prepped and draped in a sterile fashion. A timeout was performed. Local anesthesia was signs and displays salesperson to the skin and subcutaneous tissue around the exit site of the PermCath and the cough. Blunt dissection was used to loosen the, from the subcutaneous tissue. Pressure was held at the jugular vein and the catheter was removed. It was inspected and found to be completely intact including the tip in the cough, and no portion was left behind. Pressure was held at the right neck for 10 minutes. Sterile dressings were placed at the right chest. The patient was monitored postprocedure to make sure she did not have any bleeding or hematoma post PermCath removal. She tolerated the procedure well without difficulty. ESTIMATED BLOOD LOSS: Approximately 2 mL. COMPLICATIONS: None PLAN: Continue to use AV access for dialysis. Okay to resume preprocedure diet and medications. Keep head of bed greater than 45 today. Avoid laying flat to keep venous pressure at the jugular vein minimal. This will minimize the risk of bleeding or bruising. We appreciate the opportunity to participate in the care of this patient. CAREY ALEJO MD Mar 22, 2021 13:01
== END ==
LOC: M IRPRO 11:31
PROVIDERS: ATTEND Surgery Vascular Surgery
DX: Z45.2 Encounter for adjustment and management of vascular access device (principal); N18.6 End stage renal disease; E03.9 Hypothyroidism, unspecified; E78.00 Pure hypercholesterolemia, unspecified; I47.1 Supraventricular tachycardia; I12.0 Hypertensive chronic kidney disease with stage 5 chronic kidney disease or end stage renal disease; J44.9 Chronic obstructive pulmonary disease, unspecified; K21.9 Gastro-esophageal reflux disease without esophagitis; K58.9 Irritable bowel syndrome, unspecified; M81.0 Age-related osteoporosis without current pathological fracture; Z79.890 Hormone replacement therapy; Z79.899 Other long term (current) drug therapy; Z88.8 Allergy status to other drugs, medicaments and biological substances; Z91.09 Other allergy status, other than to drugs and biological substances; Z99.2 Dependence on renal dialysis

== ENCOUNTER 2021-03-24 09:21 | Outpatient (CLI) | payer MEDICARE, MEDICAID ==
[~2021-03-24] VITALS: Ht 160 cm; Wt 68.0 kg
[~2021-03-24 09:21] MED LIST changes: +ACETAMINOPHEN 650 MG PO PO ONE; -LIDOCAINE W/EPINEPHRINE 1% 20ML VIAL As Ordered ONE; +RITUXIMAB IV ONE; +SODIUM CHLORIDE IV ONE; +dexameTHASONE 20MG/5ML VIAL (J1100 PER 1MG) IV ONE; +diphenhydrAMINE 25 MG PO PO ONE
[2021-03-24 09:30] VITALS: BP 198/88
[2021-03-24] MEDS ORDERED: diphenhydrAMINE 50MG/ML VIAL (J1200) IV PRN (09:30)
[2021-03-24] MEDS ORDERED: ACETAMINOPHEN 650 MG PO PO PRN (09:30)
[2021-03-24] MEDS ORDERED: SODIUM CHLORIDE IV ONE ×3 (09:30)
[2021-03-24] MEDS ORDERED: methylPREDNISolone 125MG 2ML VIAL IV PRN (09:30)
[2021-03-24] MEDS ORDERED: HYDROCORTISONE 100 MG/2 ML VIAL (J1720 PER 1) IV PRN (09:30)
[2021-03-24] MEDS ORDERED: RITUXIMAB IV ONE ×3 (09:30)
[2021-03-24 10:30] VITALS: BP 162/82
[2021-03-24 11:30] VITALS: BP 168/79
== END 2021-03-24 13:00 | disposition home or self-care (01) ==
LOC: M INFU 09:21
PROVIDERS: ATTEND Internal Medicine
DX: M31.30 Wegener's granulomatosis without renal involvement (principal)
CPT/HCPCS: 96375; 96413; 96415; J1100; J9312

== ENCOUNTER → 2021-03-29 | Outpatient (CLI) | payer MEDICARE, MEDICAID ==
[~2021-03-29] MED LIST changes: -ACETAMINOPHEN 650 MG PO PO ONE; -RITUXIMAB IV ONE; -SODIUM CHLORIDE IV ONE; -dexameTHASONE 20MG/5ML VIAL (J1100 PER 1MG) IV ONE; -diphenhydrAMINE 25 MG PO PO ONE
--- NOTE | 2021-03-30 14:20 | REPMRS ---
Patient History The patient states she has not had a clinical breast exam in over a year. Family history of breast cancer at age 65 in mother, breast cancer at age 65 in paternal aunt. Took hormonal contraceptives for 1 year. Took progesterone for 10 years. Tomosynthesis is performed. Volpara breast density is d. JunioryeniSavitadavidjarrell lifetime risk of breast cancer 8.3%. 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 Pfizer vaccine 11/15/20 left arm, 12/06/20 left arm. Patient states no breast complaints today. Patient has signed MRS History Sheet. Digital Woman Screen Mammo: March 29, 2021 - Exam #: [id number] Bilateral CC and MLO view(s) were taken. Technologist: RT Kylee Prior study comparison: November 07, 2018, bilateral digital woman screen mammo performed at [facility]. May 01, 2017, digital woman screen mammo performed at [facility]. FINDINGS: The breast tissue is heterogeneously dense. This may lower the sensitivity of mammography. There has been no change in the appearance of the mammogram from the prior studies. There is a moderate amount of residual fibroglandular tissue which is fairly symmetric. There is no interval development of dominant mass, areas of architectural distortion, or clustered microcalcification typical of malignancy. Assessment: BI-RADS/ACR category 1 mammogram. Negative Mammogram. Recommendation Routine screening mammogram in 1 year (for women over age 40). This mammogram was interpreted with the aid of an FDA-approved computer-aided dectection system. Electronically Signed By: Karan Aguilar MD 03/30/21 [id number]
== END ==
LOC: M WHC 08:46
PROVIDERS: ATTEND Family Medicine
DX: Z12.31 Encounter for screening mammogram for malignant neoplasm of breast (principal); Z80.3 Family history of malignant neoplasm of breast

== ENCOUNTER 2021-04-05 09:12 | Outpatient (CLI) | payer MEDICARE, MEDICAID ==
[~2021-04-05] VITALS: Ht 160 cm; Wt 68.0 kg
[~2021-04-05 09:12] MED LIST changes: +ACETAMINOPHEN TAB 650MG DOSE (2X325MG) PO PRN; +HYDROCORTISONE 100 MG/2 ML VIAL (J1720 PER 1) IV PRN; +diphenhydrAMINE 25MG CAP PO PRN; +diphenhydrAMINE 50MG/ML VIAL (J1200) IV PRN; +methylPREDNISolone 125MG 2ML VIAL IV PRN
[2021-04-05] MEDS ORDERED: ACETAMINOPHEN TAB 650MG DOSE (2X325MG) PO ONE (09:30)
[2021-04-05] MEDS ORDERED: riTUXimab (SUBSEQUENT INFUSIONS) IV ONE ×3 (09:30)
[2021-04-05] MEDS ORDERED: diphenhydrAMINE 25MG CAP PO ONE (09:30)
[2021-04-05] MEDS ORDERED: dexameTHASONE 20MG/5ML VIAL (J1100 PER 1MG) IV ONE (09:30)
[2021-04-05 09:53] VITALS: BP 179/77
[2021-04-05 10:45] VITALS: BP 162/78
[2021-04-05 11:15] VITALS: BP 156/71
[2021-04-05 12:56] VITALS: BP 158/80
== END 2021-04-05 12:56 | disposition home or self-care (01) ==
LOC: M INFU 09:12
PROVIDERS: ATTEND Internal Medicine
DX: M31.30 Wegener's granulomatosis without renal involvement (principal)
CPT/HCPCS: 96413; 96415; J1100; J9312

== ENCOUNTER → 2021-04-12 | Outpatient (REF) | payer MEDICARE, MEDICAID ==
[~2021-04-12] MED LIST changes: -ACETAMINOPHEN TAB 650MG DOSE (2X325MG) PO PRN; -HYDROCORTISONE 100 MG/2 ML VIAL (J1720 PER 1) IV PRN; -diphenhydrAMINE 25MG CAP PO PRN; -diphenhydrAMINE 50MG/ML VIAL (J1200) IV PRN; -methylPREDNISolone 125MG 2ML VIAL IV PRN
[2021-04-12 10:32] LABS: BASO # 0.1 10^3/uL (0.0-0.2); BASO % 0.9 % (0.0-1.0); EOS # 0.2 10^3/uL (0.0-0.5); EOS % 3.5 % (0.0-3.0); HEMOGLOBIN 10.6 g/dl (12.0-15.5); LYMPH # 1.2 10^3/uL (1.5-5.0); LYMPH % 20.5 % (24.0-44.0); MEAN CORPUSCULAR HGB CONC 30.3 g/dl (32.0-36.5); MEAN CORPUSCULAR VOLUME 95.9 fl (80.0-96.0); MONO # 0.6 10^3/uL (0.0-0.8); NEUTROPHILS # 3.7 10^3/uL (1.5-8.5); NEUTROPHILS % 63.8 % (36.0-66.0); PLATELET COUNT, AUTOMATED 134 10^3/uL (150-450); RED BLOOD COUNT 3.65 10^6/uL (4.00-5.40); WHITE BLOOD COUNT 5.8 10^3/uL (4.0-10.0)
[2021-04-12 10:54] LABS: ERYTHROCYTE SEDIMENTATION RATE 18 mm/hr (0-30)
[2021-04-12 11:02] LABS: ALBUMIN 3.7 GM/DL (3.2-5.2); BILIRUBIN,TOTAL 0.9 MG/DL (0.2-1.0); C REACTIVE PROTEIN QUANTITATIV 0.62 MG/DL (0.00-0.30); CALCIUM LEVEL 8.7 MG/DL (8.8-10.2); CREATININE FOR GFR 6.53 MG/DL (0.55-1.30); GLOMERULAR FILTRATION RATE 6.7 (>39); POTASSIUM SERUM 4.1 MEQ/L (3.5-5.1); TOTAL PROTEIN 5.9 GM/DL (6.4-8.2)
== END ==
PROVIDERS: ATTEND Internal Medicine
DX: Z79.899 Other long term (current) drug therapy (principal)

== ENCOUNTER → 2021-04-19 | Outpatient (CLI) | payer MEDICARE, MEDICAID ==
[2021-04-19 11:16] LABS: CHOLESTEROL LEVEL 149 MG/DL (<200); HDL CHOLESTEROL 47 MG/DL (>40); LDL CHOLESTEROL 75 MG/DL (<100); NON-HDL-C 102 MG/DL; THYROID STIMULATING HORMONE 0.836 uIU/ML (0.358-3.740); TRIGLYCERIDES LEVEL 136 MG/DL (<150)
[2021-04-19 11:31] LABS: TOTAL 25(OH) VITAMIN D 47.4 NG/ML (30.0-100.0)
[2021-04-19 11:32] LABS: VITAMIN B12 LEVEL > 2000 PG/ML (247-911)
== END ==
LOC: M PLALAB 08:54
PROVIDERS: ATTEND Family Medicine
DX: E89.0 Postprocedural hypothyroidism (principal); E78.2 Mixed hyperlipidemia; E55.9 Vitamin D deficiency, unspecified; E53.9 Vitamin B deficiency, unspecified

== ENCOUNTER → 2021-06-09 | Outpatient (CLI) | payer MEDICARE, MEDICAID ==
--- NOTE | 2021-06-09 09:19 | DEXAMM ---
INDICATION: M81.0 AGE RELATED OSTEOPOROSIS. COMPARISON: 06/04/2019 as well as other prior exams. TECHNIQUE: Bone density was measured using dual-energy x-ray absorptiometry (DEXA). FINDINGS: LT FEMUR, TOTAL BMD 0.574 g/cm2 Young Adult T-Score -3.4 Age Matched Z-Score -2.0. LT NECK BMD 0.597 g/cm2 Young Adult T-Score -3.2 Age Matched Z-Score -1.5. RT FEMUR, TOTAL BMD 0.578 g/cm2 Young Adult T-Score -3.4 Age Matched Z-Score -1.9. RT NECK BMD 0.616 g/cm2 Young Adult T-Score -3.0 Age Matched Z-Score -1.3. IMPRESSION: There is osteoporosis of the left hip. There is osteoporosis of the right hip. The density of the left hip has decreased 19.0% since initial exam on 07/05/2011. The density of the left hip has increased 1.2% since most recent exam on 06/04/2019. The density of the right hip has decreased 26.9% since the initial exam on 08/04/2003. The density of the right hip has increased 6.1% since the most recent exam on 06/04/2019. FOLLOW-UP: Recommendation for the next bone density exam: 2 years. <Electronically signed by Karan Aguilar > 06/09/21 0916
== END ==
LOC: M WHC 07:42
PROVIDERS: ATTEND Nurse Practitioner Family
DX: M81.0 Age-related osteoporosis without current pathological fracture (principal)

== ENCOUNTER → 2021-11-08 | Outpatient (REF) | payer MEDICARE, MEDICAID ==
[~2021-11-08] MED LIST changes: -CEFD1CAP8 PO; -DICY20TA11 PO; +DICY20TA20 PO; +LOSA100T45 PO; -LOSA100T50 PO; +LOSA50TA28 PO; -LOSA50TA88 PO; -PROC10TA4 PO; +PROC10TA5 PO; -VERA120T4 PO; +VERA120T71 PO
== END ==
LOC: M SFHCPLAZ 17:49
PROVIDERS: ATTEND Nurse Practitioner Adult Health
DX: R19.7 Diarrhea, unspecified (principal)

== ENCOUNTER 2021-11-24 15:13 | Outpatient (CLI) | payer MEDICARE, MEDICAID ==
[~2021-11-24] VITALS: Ht 160 cm; Wt 68.0 kg
[2021-11-24 15:46] VITALS: BP 174/88
[2021-11-24] MEDS ORDERED: BEZLOTOXUMAB 650 MG in NS 100 ML IV ONE (16:00)
[2021-11-24 17:30] VITALS: BP 162/79
== END 2021-11-24 17:30 | disposition home or self-care (01) ==
LOC: M INFU 15:13
PROVIDERS: ATTEND Nurse Practitioner Adult Health
DX: A04.71 Enterocolitis due to Clostridium difficile, recurrent (principal); Z88.8 Allergy status to other drugs, medicaments and biological substances; Z88.6 Allergy status to analgesic agent
CPT/HCPCS: 96365; J0565

== ENCOUNTER 2021-12-13 09:05 | Outpatient (CLI) | payer MEDICARE, MEDICAID ==
[~2021-12-13] VITALS: Ht 167.6 cm; Wt 67.7 kg
[2021-12-13] MEDS ORDERED: methylPREDNISolone 125MG 2ML VIAL IV PRN (09:30)
[2021-12-13] MEDS ORDERED: dexameTHASONE 20MG/5ML VIAL (J1100 PER 1MG) IV ONE (09:30)
[2021-12-13] MEDS ORDERED: RITUXIMAB IV ONE (09:30)
[2021-12-13] MEDS ORDERED: ACETAMINOPHEN TAB 650MG DOSE (2X325MG) PO ONE (09:30)
[2021-12-13] MEDS ORDERED: HYDROCORTISONE 100 MG/2 ML VIAL (J1720 PER 1) IV PRN (09:30)
[2021-12-13] MEDS ORDERED: NS IV ONE (09:30)
[2021-12-13] MEDS ORDERED: diphenhydrAMINE 50MG/ML VIAL (J1200) IV PRN (09:30)
[2021-12-13] MEDS ORDERED: diphenhydrAMINE 25MG CAP PO ONE (09:30)
[2021-12-13] MEDS ORDERED: ACETAMINOPHEN TAB 650MG DOSE (2X325MG) PO PRN (09:30)
[2021-12-13 09:37] VITALS: BP 190/78
[2021-12-13 10:30] VITALS: BP 175/78
[2021-12-13 11:00] VITALS: BP 164/71
[2021-12-13 11:30] VITALS: BP 170/76
[2021-12-13 12:40] VITALS: BP 166/71
== END 2021-12-13 12:40 | disposition home or self-care (01) ==
LOC: M INFU 09:05
PROVIDERS: ATTEND Internal Medicine
DX: M31.30 Wegener's granulomatosis without renal involvement (principal)
CPT/HCPCS: 96375; 96413; 96415; J1100; J9312

== ENCOUNTER → 2021-12-22 | Outpatient (CLI) | payer MEDICARE, MEDICAID ==
[2021-12-22 13:56] LABS: BASO # 0.1 10^3/uL (0.0-0.2); EOS # 0.2 10^3/uL (0.0-0.5); EOS % 3.6 % (0.0-3.0); HEMOGLOBIN 10.8 g/dl (12.0-15.5); LYMPH # 1.2 10^3/uL (1.5-5.0); LYMPH % 20.5 % (24.0-44.0); MEAN CORPUSCULAR HEMOGLOBIN 28.6 pg (27.0-33.0); MEAN CORPUSCULAR HGB CONC 30.9 g/dl (32.0-36.5); MEAN CORPUSCULAR VOLUME 92.8 fl (80.0-96.0); MONO # 0.6 10^3/uL (0.0-0.8); NEUTROPHILS # 3.7 10^3/uL (1.5-8.5); NEUTROPHILS % 63.6 % (36.0-66.0); PLATELET COUNT, AUTOMATED 150 10^3/uL (150-450); RED BLOOD COUNT 3.77 10^6/uL (4.00-5.40); WHITE BLOOD COUNT 5.8 10^3/uL (4.0-10.0)
[2021-12-22 14:20] LABS: BILIRUBIN,TOTAL 0.8 MG/DL (0.2-1.0); CALCIUM LEVEL 9.4 MG/DL (8.8-10.2); CREATININE FOR GFR 6.42 MG/DL (0.55-1.30); GLOMERULAR FILTRATION RATE 6.8 (>39); POTASSIUM SERUM 4.7 MEQ/L (3.5-5.1); TOTAL PROTEIN 6.4 GM/DL (6.4-8.2)
== END ==
LOC: M PLALAB 11:38
PROVIDERS: ATTEND Physician Assistant
DX: R19.7 Diarrhea, unspecified (principal); R10.32 Left lower quadrant pain; Z86.19 Personal history of other infectious and parasitic diseases

== ENCOUNTER → 2022-01-23 | Outpatient (REF) | payer MEDICARE, MEDICAID ==
[~2022-01-23] MED LIST changes: +DIFI200T PO
== END ==
PROVIDERS: ATTEND Internal Medicine
DX: Z79.899 Other long term (current) drug therapy (principal); Z53.9 Procedure and treatment not carried out, unspecified reason

== ENCOUNTER → 2022-01-24 | Outpatient (CLI) | payer MEDICARE, MEDICAID ==
[~2022-01-24] MED LIST changes: -DIFI200T PO
[2022-01-24 13:27] LABS: BASO % 0.7 % (0.0-1.0); EOS # 0.3 10^3/uL (0.0-0.5); EOS % 4.8 % (0.0-3.0); HEMATOCRIT 35.1 % (36.0-47.0); HEMOGLOBIN 10.8 g/dl (12.0-15.5); LYMPH # 1.4 10^3/uL (1.5-5.0); LYMPH % 24.9 % (24.0-44.0); MEAN CORPUSCULAR HEMOGLOBIN 29.1 pg (27.0-33.0); MEAN CORPUSCULAR HGB CONC 30.8 g/dl (32.0-36.5); MEAN CORPUSCULAR VOLUME 94.6 fl (80.0-96.0); MONO # 0.6 10^3/uL (0.0-0.8); NEUTROPHILS # 3.2 10^3/uL (1.5-8.5); NEUTROPHILS % 58.4 % (36.0-66.0); PLATELET COUNT, AUTOMATED 130 10^3/uL (150-450); RED BLOOD COUNT 3.71 10^6/uL (4.00-5.40); WHITE BLOOD COUNT 5.4 10^3/uL (4.0-10.0)
[2022-01-24 13:51] LABS: ALBUMIN 3.9 GM/DL (3.2-5.2); BILIRUBIN,TOTAL 0.9 MG/DL (0.2-1.0); C REACTIVE PROTEIN QUANTITATIV 0.78 MG/DL (0.00-0.30); CALCIUM LEVEL 9.4 MG/DL (8.8-10.2); CREATININE FOR GFR 6.92 MG/DL (0.55-1.30); GLOMERULAR FILTRATION RATE 6.2 (>39); POTASSIUM SERUM 4.8 MEQ/L (3.5-5.1); TOTAL PROTEIN 6.4 GM/DL (6.4-8.2)
[2022-01-24 13:58] LABS: ERYTHROCYTE SEDIMENTATION RATE 17 mm/hr (0-30)
== END ==
LOC: M PLALAB 09:50
PROVIDERS: ATTEND Internal Medicine
DX: Z79.899 Other long term (current) drug therapy (principal)

== ENCOUNTER → 2022-01-24 | Outpatient (REF) | payer MEDICARE, MEDICAID ==
[2022-01-24 19:10] LABS: CLOSTRIDIUM DIFFICILE PCR POSITIVE (NEGATIVE)
== END ==
LOC: M SFHCPLAZ 17:46
PROVIDERS: ATTEND Internal Medicine Infectious Disease
DX: A04.71 Enterocolitis due to Clostridium difficile, recurrent (principal)

== ENCOUNTER → 2022-02-07 | Outpatient (POV) | payer MEDICARE, MEDICAID ==
[~2022-02-07] VITALS: Ht 167.6 cm; Wt 66.3 kg
[2022-02-07 09:00] VITALS: BP 190/78
== END ==
LOC: M IRPOV 09:00
PROVIDERS: ATTEND Radiology Diagnostic Radiology
DX: M31.31 Wegener's granulomatosis with renal involvement (principal); M31.0 Hypersensitivity angiitis; N18.6 End stage renal disease; J30.9 Allergic rhinitis, unspecified; Z88.6 Allergy status to analgesic agent; Z88.8 Allergy status to other drugs, medicaments and biological substances; Z91.09 Other allergy status, other than to drugs and biological substances; Z99.2 Dependence on renal dialysis

== ENCOUNTER → 2022-02-16 | Outpatient (CLI) | payer MEDICARE, MEDICAID ==
[~2022-02-16] MED LIST changes: +DIFI200T PO; +LIDOCAINE 1% MDV 20ML VIAL As Ordered ONE; +MIDAZOLAM INJ 2MG/2ML VIAL (J2250 PER 1MG) As Ordered ONE; +NS 1,000 ML IV SCH; +ceFAZolin 2 GM/D5W 50 ML IV BAG (J0690 PER 500MG) As Ordered ONE; +ceFAZolin SOD 2 GM in IV 1 EA IV ONE; +diphenhydrAMINE 50MG/ML VIAL (J1200) As Ordered ONE; +fentaNYL 100 MCG/2 ML INJECTION As Ordered ONE
[2022-02-16 15:15] VITALS: BP 185/78
== END ==
LOC: M IRPRO 09:56
PROVIDERS: ATTEND Radiology Diagnostic Radiology
DX: M31.30 Wegener's granulomatosis without renal involvement (principal); M31.0 Hypersensitivity angiitis; J30.2 Other seasonal allergic rhinitis; Z88.6 Allergy status to analgesic agent; Z88.8 Allergy status to other drugs, medicaments and biological substances; Z91.09 Other allergy status, other than to drugs and biological substances
CPT/HCPCS: 36561; 99152; 99153; C1769; C1788; C1894; J0690; J1200; J1642; J1644; J2250; J3010

== ENCOUNTER → 2022-02-28 | Outpatient (CLI) | payer MEDICARE, MEDICAID ==
[~2022-02-28] MED LIST changes: -LIDOCAINE 1% MDV 20ML VIAL As Ordered ONE; -MIDAZOLAM INJ 2MG/2ML VIAL (J2250 PER 1MG) As Ordered ONE; -NS 1,000 ML IV SCH; -ceFAZolin 2 GM/D5W 50 ML IV BAG (J0690 PER 500MG) As Ordered ONE; -ceFAZolin SOD 2 GM in IV 1 EA IV ONE; -diphenhydrAMINE 50MG/ML VIAL (J1200) As Ordered ONE; -fentaNYL 100 MCG/2 ML INJECTION As Ordered ONE
== END ==
LOC: M PLAIMG 09:20
PROVIDERS: ATTEND Internal Medicine Pulmonary Disease
DX: M31.30 Wegener's granulomatosis without renal involvement (principal); I51.7 Cardiomegaly; Z95.828 Presence of other vascular implants and grafts; Z87.81 Personal history of (healed) traumatic fracture; M48.54XA Collapsed vertebra, not elsewhere classified, thoracic region, initial encounter for fracture

== ENCOUNTER → 2022-03-21 | Outpatient (POV) | payer MEDICARE, MEDICAID ==
[~2022-03-21] VITALS: Ht 157.5 cm; Wt 65.0 kg
[~2022-03-21] MED LIST changes: +ALBU2.5V10 INH; -ALBU83IN INH
[2022-03-21 08:40] VITALS: BP 150/80
[2022-03-21 09:40] VITALS: BP 150/80
== END ==
LOC: M IRPOV 08:27
PROVIDERS: ATTEND Radiology Diagnostic Radiology
DX: Z45.2 Encounter for adjustment and management of vascular access device (principal); J30.2 Other seasonal allergic rhinitis; Z88.6 Allergy status to analgesic agent; Z88.8 Allergy status to other drugs, medicaments and biological substances; Z91.09 Other allergy status, other than to drugs and biological substances

== ENCOUNTER → 2022-03-22 | Outpatient (REF) | payer MEDICARE, MEDICAID | PROVIDERS: ATTEND Internal Medicine Infectious Disease | DX: A04.71 Enterocolitis due to Clostridium difficile, recurrent (principal) ==

== ENCOUNTER 2022-03-23 15:09 | Outpatient (CLI) | payer MEDICARE, MEDICAID ==
[~2022-03-23] VITALS: Ht 167.6 cm; Wt 67.0 kg
[~2022-03-23 15:09] MED LIST changes: +SODIUM CHLORIDE 0.9% INJ 10 ML SYR IV SCH
[2022-03-23 15:30] VITALS: BP 140/76
== END 2022-03-23 15:40 | disposition home or self-care (01) ==
LOC: M INFU 15:09
PROVIDERS: ATTEND Radiology Diagnostic Radiology
DX: M31.30 Wegener's granulomatosis without renal involvement (principal)
CPT/HCPCS: 96523; J1642

== ENCOUNTER 2022-04-27 15:30 | Outpatient (CLI) | payer MEDICARE, MEDICAID ==
[~2022-04-27] VITALS: Ht 160 cm; Wt 67.0 kg
[2022-04-27 15:34] VITALS: BP 185/81
== END 2022-04-27 15:45 | disposition home or self-care (01) ==
LOC: M INFU 15:30
PROVIDERS: ATTEND Radiology Diagnostic Radiology
DX: M31.30 Wegener's granulomatosis without renal involvement (principal); Z88.8 Allergy status to other drugs, medicaments and biological substances
CPT/HCPCS: 96523; J1642

== ENCOUNTER → 2022-05-11 | Outpatient (REF) | payer MEDICARE, MEDICAID ==
[~2022-05-11] MED LIST changes: -SODIUM CHLORIDE 0.9% INJ 10 ML SYR IV SCH
== END ==
PROVIDERS: ATTEND Physician Assistant Medical
DX: Z20.822 Contact with and (suspected) exposure to COVID-19 (principal)

== ENCOUNTER → 2022-05-22 | Outpatient (REF) | payer MEDICARE, MEDICAID ==
[~2022-05-22] MED LIST changes: +D 1010004 PO; +MUCU600T12 PO; +NYST-13 EXT; +NYST-13 TOP; -NYST10CR EXT; -NYST10CR TOP; +OMEG10002 PO; +RISATAB3 PO; +[UNRECOGNIZED DRUG - CODE] PO; +[UNRECOGNIZED DRUG - CODE] PO; +[UNRECOGNIZED DRUG - CODE] PO
== END ==
PROVIDERS: ATTEND Physician Assistant Medical
DX: N18.6 End stage renal disease (principal); I51.1 Rupture of chordae tendineae, not elsewhere classified; Z53.8 Procedure and treatment not carried out for other reasons

== ENCOUNTER 2022-05-25 14:30 | Outpatient (CLI) | payer MEDICARE, MEDICAID ==
[~2022-05-25] VITALS: Ht 160 cm; Wt 67.0 kg
[2022-05-25 14:30] VITALS: BP 145/65
[~2022-05-25 14:30] MED LIST changes: -D 1010004 PO; -MUCU600T12 PO; -OMEG10002 PO; -RISATAB3 PO; +SODIUM CHLORIDE 0.9% INJ 10 ML SYR IV SCH; -[UNRECOGNIZED DRUG - CODE] PO; -[UNRECOGNIZED DRUG - CODE] PO; -[UNRECOGNIZED DRUG - CODE] PO
== END 2022-05-25 14:50 | disposition home or self-care (01) ==
LOC: M INFU 14:30
PROVIDERS: ATTEND Radiology Diagnostic Radiology
DX: M31.30 Wegener's granulomatosis without renal involvement (principal); Z88.8 Allergy status to other drugs, medicaments and biological substances
CPT/HCPCS: 96523; J1642

== ENCOUNTER 2022-06-29 13:45 | Outpatient (CLI) | payer MEDICARE, MEDICAID ==
[~2022-06-29] VITALS: Ht 160 cm; Wt 67.0 kg
[2022-06-29 13:59] VITALS: BP 140/66
== END 2022-06-29 14:05 | disposition home or self-care (01) ==
LOC: M INFU 13:45
PROVIDERS: ATTEND Radiology Diagnostic Radiology
DX: M31.30 Wegener's granulomatosis without renal involvement (principal); Z88.8 Allergy status to other drugs, medicaments and biological substances
CPT/HCPCS: 96523; J1642

== ENCOUNTER → 2022-07-23 | Outpatient (CLI) | payer MEDICARE, MEDICAID ==
[~2022-07-23] MED LIST changes: +D 1010004 PO; +MUCU600T12 PO; +OMEG10002 PO; +RISATAB3 PO; -SODIUM CHLORIDE 0.9% INJ 10 ML SYR IV SCH; +[UNRECOGNIZED DRUG - CODE] PO; +[UNRECOGNIZED DRUG - CODE] PO; +[UNRECOGNIZED DRUG - CODE] PO
== END ==
LOC: M LABSMTC 11:29
PROVIDERS: ATTEND Anesthesiology
DX: Z01.812 Encounter for preprocedural laboratory examination (principal); Z20.822 Contact with and (suspected) exposure to COVID-19

== ENCOUNTER → 2022-07-24 | Outpatient (REF) | payer MEDICARE, MEDICAID | PROVIDERS: ATTEND Physician Assistant Medical | DX: Z01.818 Encounter for other preprocedural examination (principal); Z20.822 Contact with and (suspected) exposure to COVID-19; Z53.8 Procedure and treatment not carried out for other reasons ==

== ENCOUNTER 2022-07-26 10:06 | Day surgery (SDC) | payer MEDICARE, MEDICAID ==
[~2022-07-26] VITALS: Ht 157.5 cm; Wt 64.5 kg
[~2022-07-26 10:06] MED LIST changes: +NS 1,000 ML IV ONE
[2022-07-26] MEDS ORDERED: propofoL 200 MG/20 ML VIAL As Ordered ONE (12:03)
[2022-07-26] MEDS ORDERED: LIDOCAINE 2% 100MG/5ML SDV (FOR ANES.) As Ordered ONE (12:03)
[2022-07-26 13:05] VITALS: BP 132/60
== END 2022-07-26 13:25 | disposition home or self-care (01) ==
LOC: M OPP 10:06
PROVIDERS: ATTEND Internal Medicine Gastroenterology
DX: K64.0 First degree hemorrhoids (principal); K63.5 Polyp of colon; R19.7 Diarrhea, unspecified; Z87.891 Personal history of nicotine dependence; Z79.51 Long term (current) use of inhaled steroids; Z79.899 Other long term (current) drug therapy; Z88.6 Allergy status to analgesic agent; Z88.8 Allergy status to other drugs, medicaments and biological substances; Z91.018 Allergy to other foods; D64.9 Anemia, unspecified; J44.9 Chronic obstructive pulmonary disease, unspecified; I47.1 Supraventricular tachycardia; E78.00 Pure hypercholesterolemia, unspecified; Z86.19 Personal history of other infectious and parasitic diseases; Z87.19 Personal history of other diseases of the digestive system; G47.30 Sleep apnea, unspecified; Z92.21 Personal history of antineoplastic chemotherapy

== ENCOUNTER 2022-08-03 10:30 | Outpatient (CLI) | payer MEDICARE, MEDICAID ==
[2022-08-03 10:30] VITALS: BP 150/67
[~2022-08-03 10:30] MED LIST changes: -NS 1,000 ML IV ONE; +SODIUM CHLORIDE 0.9% INJ 10 ML SYR IV SCH
== END 2022-08-03 10:45 ==
LOC: M INFU 10:30
PROVIDERS: ATTEND Radiology Diagnostic Radiology
DX: M31.30 Wegener's granulomatosis without renal involvement (principal); Z88.8 Allergy status to other drugs, medicaments and biological substances
CPT/HCPCS: 96523; J1642

== ENCOUNTER 2022-08-31 13:19 | Outpatient (CLI) | payer MEDICARE, MEDICAID ==
[~2022-08-31] VITALS: Ht 157.5 cm; Wt 65.0 kg
[~2022-08-31 13:19] MED LIST changes: +SODIUM CHLORIDE 0.9% INJ 10 ML SYR IV SCH
[2022-08-31 13:55] VITALS: BP 168/77
== END 2022-08-31 14:00 | disposition home or self-care (01) ==
LOC: M INFU 13:19
PROVIDERS: ATTEND Radiology Diagnostic Radiology
DX: M31.30 Wegener's granulomatosis without renal involvement (principal); Z88.8 Allergy status to other drugs, medicaments and biological substances
CPT/HCPCS: 71250; 96523; J1642

== ENCOUNTER → 2022-08-31 | Outpatient (CLI) | payer MEDICARE, MEDICAID ==
[~2022-08-31] MED LIST changes: -SODIUM CHLORIDE 0.9% INJ 10 ML SYR IV SCH
== END ==
LOC: M RAD 13:12
PROVIDERS: ATTEND Internal Medicine Pulmonary Disease
DX: J84.9 Interstitial pulmonary disease, unspecified (principal); J47.9 Bronchiectasis, uncomplicated

== ENCOUNTER → 2022-09-30 | Outpatient (REF) | payer MEDICARE, MEDICAID ==
[~2022-09-30] MED LIST changes: -SODIUM CHLORIDE 0.9% INJ 10 ML SYR IV SCH
== END ==
PROVIDERS: ATTEND Internal Medicine Pulmonary Disease
DX: J84.9 Interstitial pulmonary disease, unspecified (principal)

== ENCOUNTER 2022-10-05 11:40 | Outpatient (CLI) | payer MEDICARE, MEDICAID ==
[~2022-10-05] VITALS: Ht 157.5 cm; Wt 65.0 kg
[~2022-10-05 11:40] MED LIST changes: +SODIUM CHLORIDE 0.9% INJ 10 ML SYR IV SCH
[2022-10-05 11:52] VITALS: BP 171/74
== END 2022-10-05 11:50 | disposition home or self-care (01) ==
LOC: M INFU 11:40
PROVIDERS: ATTEND Radiology Diagnostic Radiology
DX: M31.30 Wegener's granulomatosis without renal involvement (principal); Z88.8 Allergy status to other drugs, medicaments and biological substances
CPT/HCPCS: 96523; J1642

== ENCOUNTER → 2022-10-07 | Outpatient (REF) | payer MEDICARE, MEDICAID ==
[~2022-10-07] MED LIST changes: -SODIUM CHLORIDE 0.9% INJ 10 ML SYR IV SCH
== END ==
LOC: M LAB REF 09:54
PROVIDERS: ATTEND Internal Medicine Gastroenterology
DX: R19.7 Diarrhea, unspecified (principal)

== ENCOUNTER → 2022-11-09 | Outpatient (CLI) | payer MEDICARE, MEDICAID ==
[~2022-11-09] VITALS: Ht 157.5 cm; Wt 65.0 kg
[~2022-11-09] MED LIST changes: +NYST-38 SS; -NYST50SS SS; +SODIUM CHLORIDE 0.9% INJ 10 ML SYR IV SCH
[2022-11-09 12:33] VITALS: BP 148/66
== END ==
LOC: M INFU 12:30
PROVIDERS: ATTEND Radiology Diagnostic Radiology
DX: M31.30 Wegener's granulomatosis without renal involvement (principal); Z88.8 Allergy status to other drugs, medicaments and biological substances

== ENCOUNTER 2022-11-22 15:00 | Outpatient (CLI) | payer MEDICARE, MEDICAID ==
[~2022-11-22] VITALS: Ht 157.5 cm; Wt 65.0 kg
[2022-11-22 15:00] VITALS: BP 184/94
[2022-11-22] MEDS ORDERED: BEZLOTOXUMAB in NS 100 ML OVER 1 HR IV ONE (15:30)
[2022-11-22 16:44] VITALS: BP 136/85
== END 2022-11-22 16:44 | disposition home or self-care (01) ==
LOC: M INFU 15:00
PROVIDERS: ATTEND Family Medicine
DX: Z86.19 Personal history of other infectious and parasitic diseases (principal); Z88.6 Allergy status to analgesic agent; Z91.048 Other nonmedicinal substance allergy status
CPT/HCPCS: 96365; J0565

== ENCOUNTER → 2022-12-05 | Outpatient (CLI) | payer MEDICARE, MEDICAID ==
[~2022-12-05] MED LIST changes: -SODIUM CHLORIDE 0.9% INJ 10 ML SYR IV SCH
== END ==
LOC: M PLAIMG 10:17
PROVIDERS: ATTEND Internal Medicine Pulmonary Disease
DX: M31.30 Wegener's granulomatosis without renal involvement (principal)

== ENCOUNTER 2023-01-02 07:55 | Outpatient (CLI) | payer MEDICARE, MEDICAID ==
[~2023-01-02] VITALS: Ht 157.5 cm; Wt 65.0 kg
[2023-01-02 08:08] VITALS: BP 142/62
[2023-01-02] MEDS ORDERED: SODIUM CHLORIDE 0.9% INJ 10 ML SYR IV SCH (09:00)
== END 2023-01-02 08:15 | disposition home or self-care (01) ==
LOC: M INFU 07:55
PROVIDERS: ATTEND Radiology Diagnostic Radiology
DX: M31.30 Wegener's granulomatosis without renal involvement (principal); Z88.8 Allergy status to other drugs, medicaments and biological substances

== ENCOUNTER 2023-01-25 11:57 | Outpatient (CLI) | payer MEDICARE, MEDICAID ==
[~2023-01-25] VITALS: Ht 160 cm; Wt 65.0 kg
[~2023-01-25 11:57] MED LIST changes: +ARTIDRO4 OU; +FLUT50SP17 NARES; -FLUTISP NARES; -POLYOPD OU; +SODIUM CHLORIDE 0.9% INJ 10 ML SYR IV SCH
[2023-01-25 13:02] VITALS: BP 192/82
== END 2023-01-25 13:00 | disposition home or self-care (01) ==
LOC: M INFU 11:57
PROVIDERS: ATTEND Radiology Diagnostic Radiology
DX: M31.30 Wegener's granulomatosis without renal involvement (principal); Z88.8 Allergy status to other drugs, medicaments and biological substances

== ENCOUNTER → 2023-02-06 | Outpatient (CLI) | payer MEDICARE, MEDICAID ==
[~2023-02-06] MED LIST changes: -SODIUM CHLORIDE 0.9% INJ 10 ML SYR IV SCH
[2023-02-06 11:06] LABS: ALBUMIN 4.1 G/DL (3.2-5.2); BILIRUBIN,TOTAL 0.2 MG/DL (0.3-1.2); CALCIUM LEVEL 9.2 MG/DL (8.3-10.6); CREATININE FOR GFR 6.6 MG/DL (0.55-1.30); GLOMERULAR FILTRATION RATE 6.6 (>39); POTASSIUM SERUM 4.4 MMOL/L (3.5-5.1); TOTAL PROTEIN 6.1 G/DL (5.7-8.2)
[2023-02-06 11:09] LABS: BASO % 0.8 % (0.0-1.0); EOS # 0.2 10^3/uL (0.0-0.5); EOS % 3.6 % (0.0-3.0); HEMATOCRIT 35.4 % (36.0-47.0); HEMOGLOBIN 10.9 g/dl (12.0-15.5); LYMPH # 1.2 10^3/uL (1.5-5.0); MEAN CORPUSCULAR HEMOGLOBIN 29.3 pg (27.0-33.0); MEAN CORPUSCULAR HGB CONC 30.8 g/dl (32.0-36.5); MEAN CORPUSCULAR VOLUME 95.2 fl (80.0-96.0); MONO # 0.5 10^3/uL (0.0-0.8); MONO % 10.2 % (2.0-8.0); NEUTROPHILS # 3.3 10^3/uL (1.5-8.5); NEUTROPHILS % 62.2 % (36.0-66.0); PLATELET COUNT, AUTOMATED 141 10^3/uL (150-450); RED BLOOD COUNT 3.72 10^6/uL (4.00-5.40); WHITE BLOOD COUNT 5.3 10^3/uL (4.0-10.0)
[2023-02-06 11:10] LABS: C REACTIVE PROTEIN QUANTITATIV 0.5 MG/DL (<1.0)
[2023-02-06 11:29] LABS: ERYTHROCYTE SEDIMENTATION RATE 13 mm/hr (0-30)
== END ==
LOC: M PLALAB 08:52
PROVIDERS: ATTEND Physician Assistant
DX: R10.9 Unspecified abdominal pain (principal); Z86.19 Personal history of other infectious and parasitic diseases

== ENCOUNTER 2023-02-22 08:30 | Outpatient (CLI) | payer MEDICARE, MEDICAID ==
[~2023-02-22] VITALS: Ht 160 cm; Wt 65.0 kg
[~2023-02-22 08:30] MED LIST changes: -LOSA100T45 PO; +LOSA100T46 PO
[2023-02-22 08:45] VITALS: BP 130/80
[2023-02-22] MEDS ORDERED: SODIUM CHLORIDE 0.9% INJ 10 ML SYR IV SCH (09:00)
== END 2023-02-22 08:45 | disposition home or self-care (01) ==
LOC: M INFU 08:30
PROVIDERS: ATTEND Radiology Diagnostic Radiology
DX: M31.30 Wegener's granulomatosis without renal involvement (principal); Z88.8 Allergy status to other drugs, medicaments and biological substances

== ENCOUNTER 2023-03-09 11:17 | Emergency (ER) | payer MEDICARE, MEDICAID ==
[~2023-03-09] VITALS: Ht 157.5 cm; Wt 68.4 kg
[2023-03-09] MEDS ORDERED: MORPHINE 2 MG/ML 1ML VIAL IV ONE (12:35)
[2023-03-09] MEDS ORDERED: ONDANSETRON 4MG 2ML VIAL IV ONE (12:35)
[2023-03-09 12:39] VITALS: BP 198/85
[2023-03-09 12:42] LABS: BASO % 0.4 % (0.0-1.0); EOS # 0.2 10^3/uL (0.0-0.5); EOS % 3.9 % (0.0-3.0); HEMATOCRIT 28.6 % (36.0-47.0); HEMOGLOBIN 9.2 g/dl (12.0-15.5); LYMPH % 20.8 % (24.0-44.0); MEAN CORPUSCULAR HEMOGLOBIN 29.9 pg (27.0-33.0); MEAN CORPUSCULAR HGB CONC 32.2 g/dl (32.0-36.5); MEAN CORPUSCULAR VOLUME 92.9 fl (80.0-96.0); MONO # 0.5 10^3/uL (0.0-0.8); MONO % 10.5 % (2.0-8.0); NEUTROPHILS % 64.2 % (36.0-66.0); PLATELET COUNT, AUTOMATED 157 10^3/uL (150-450); RED BLOOD COUNT 3.08 10^6/uL (4.00-5.40); WHITE BLOOD COUNT 4.7 10^3/uL (4.0-10.0)
[2023-03-09 13:05] LABS: LIPASE 32 U/L (12-53)
[2023-03-09 13:07] LABS: ALBUMIN 3.3 G/DL (3.2-5.2); ALKALINE PHOSPHATASE 70 U/L (46-116); ALT/SGPT 15 U/L (7.0-40); AST/SGOT 10 U/L (<34); BILIRUBIN,DIRECT < 0.1 MG/DL (<0.4); BILIRUBIN,TOTAL 0.2 MG/DL (0.3-1.2); TOTAL PROTEIN 5.3 G/DL (5.7-8.2)
[2023-03-09] MEDS ORDERED: **hydrALAZINE HCL** 25 MG TAB PO ONE (13:45)
[2023-03-09 14:13] LABS: CALCIUM LEVEL 8.9 MG/DL (8.3-10.6); CREATININE FOR GFR 3.66 MG/DL (0.55-1.30)
[2023-03-09 14:40] LABS: RSV AMPLIFICATION NEGATIVE (NEGATIVE)
[2023-03-09 14:43] VITALS: BP 202/91
[2023-03-09] MEDS ORDERED: LevoFLOXacin 250 MG TABLET PO ONE (15:05)
[2023-03-09] MEDS ORDERED: LEVO1TAB38 PO (15:08)
[2023-03-09] MEDS ORDERED: SODIUM CHLORIDE 0.9% INJ 10 ML SYR IV PRN (15:25)
== END 2023-03-09 15:45 | disposition home or self-care (01) ==
LOC: M ED 11:17 → EDBD 11:17 → M ED 15:45
DX: N30.01 Acute cystitis with hematuria (principal); N18.6 End stage renal disease; Z99.2 Dependence on renal dialysis; I10 Essential (primary) hypertension; K58.0 Irritable bowel syndrome with diarrhea; K21.9 Gastro-esophageal reflux disease without esophagitis; K57.32 Diverticulitis of large intestine without perforation or abscess without bleeding; E78.5 Hyperlipidemia, unspecified; E03.9 Hypothyroidism, unspecified; A04.71 Enterocolitis due to Clostridium difficile, recurrent; J30.89 Other allergic rhinitis; J30.81 Allergic rhinitis due to animal (cat) (dog) hair and dander; Z87.891 Personal history of nicotine dependence; Z79.899 Other long term (current) drug therapy; Z88.8 Allergy status to other drugs, medicaments and biological substances; Z91.018 Allergy to other foods
CPT/HCPCS: 74176; 80047; 80048; 80076; 81000; 81015; 83690; 85025; 87086; 87631; 96374; 96375; 99284; J2405

== ENCOUNTER 2023-03-22 07:45 | Outpatient (CLI) | payer MEDICARE, MEDICAID ==
[~2023-03-22] VITALS: Ht 157.5 cm; Wt 65.0 kg
[~2023-03-22 07:45] MED LIST changes: +LEVO1TAB38 PO
[2023-03-22] MEDS ORDERED: SODIUM CHLORIDE 0.9% INJ 10 ML SYR IV SCH (09:00)
== END 2023-03-22 07:55 | disposition home or self-care (01) ==
LOC: M INFU 07:45
PROVIDERS: ATTEND Radiology Diagnostic Radiology
DX: M31.30 Wegener's granulomatosis without renal involvement (principal); Z88.8 Allergy status to other drugs, medicaments and biological substances

== ENCOUNTER → 2023-04-26 | Outpatient (CLI) | payer MEDICARE, MEDICAID ==
[~2023-04-26] VITALS: Ht 157.5 cm; Wt 65.0 kg
[~2023-04-26] MED LIST changes: +FLUT12AE6 INH; +SODIUM CHLORIDE 0.9% INJ 10 ML SYR IV SCH
[2023-04-26 09:22] VITALS: BP 149/65; O2SAT 98
== END ==
LOC: M INFU 09:10
PROVIDERS: ATTEND Radiology Diagnostic Radiology
DX: M31.30 Wegener's granulomatosis without renal involvement (principal); Z88.8 Allergy status to other drugs, medicaments and biological substances

== ENCOUNTER → 2023-05-01 | Outpatient (REF) | payer MEDICARE, MEDICAID ==
[~2023-05-01] MED LIST changes: -LIDO1CRE42 TOP; +LIDO30CR18 TOP; -SODIUM CHLORIDE 0.9% INJ 10 ML SYR IV SCH
== END ==
LOC: M SFHCPLAZ 15:29
PROVIDERS: ATTEND Family Medicine
DX: K58.0 Irritable bowel syndrome with diarrhea (principal); K21.9 Gastro-esophageal reflux disease without esophagitis; E78.2 Mixed hyperlipidemia; E53.8 Deficiency of other specified B group vitamins

== ENCOUNTER → 2023-05-03 | Outpatient (REF) | payer MEDICARE, MEDICAID ==
[2023-05-07 20:07] LABS: CALPROTECTIN STOOL 387 ug/g (0-120); PANCREATIC ELASTASE STOOL >500 (>200)
== END ==
PROVIDERS: ATTEND Family Medicine
DX: K58.0 Irritable bowel syndrome with diarrhea (principal)

== ENCOUNTER 2023-05-24 09:18 | Outpatient (CLI) | payer MEDICARE, MEDICAID ==
[~2023-05-24] VITALS: Ht 168.3 cm; Wt 64.4 kg
[~2023-05-24 09:18] MED LIST changes: +SODIUM CHLORIDE 0.9% INJ 10 ML SYR IV PRN; +SODIUM CHLORIDE 0.9% INJ 10 ML SYR IV SCH
== END 2023-05-24 09:45 | disposition home or self-care (01) ==
LOC: M INFU 09:18
PROVIDERS: ATTEND Family Medicine
DX: M31.30 Wegener's granulomatosis without renal involvement (principal); Z88.8 Allergy status to other drugs, medicaments and biological substances

== ENCOUNTER → 2023-06-21 | Outpatient (CLI) | payer MEDICARE, MEDICAID ==
[~2023-06-21] MED LIST changes: -SODIUM CHLORIDE 0.9% INJ 10 ML SYR IV PRN; -SODIUM CHLORIDE 0.9% INJ 10 ML SYR IV SCH
== END ==
LOC: M WHC 08:21
PROVIDERS: ATTEND Internal Medicine Endocrinology, Diabetes & Metabolism
DX: M81.0 Age-related osteoporosis without current pathological fracture (principal); M85.89 Other specified disorders of bone density and structure, multiple sites

== ENCOUNTER 2023-06-26 09:25 | Outpatient (CLI) | payer MEDICARE, MEDICAID ==
[~2023-06-26] VITALS: Ht 167.6 cm; Wt 63.7 kg
[~2023-06-26 09:25] MED LIST changes: -MIRT-62 PO; +MIRT-88 PO; +SODIUM CHLORIDE 0.9% INJ 10 ML SYR IV PRN
[2023-06-26] MEDS ORDERED: SODIUM CHLORIDE 0.9% INJ 10 ML SYR IV PRN (09:30)
[2023-06-26 09:50] VITALS: BP 170/81; O2SAT 99
[2023-06-27] MEDS ORDERED: SODIUM CHLORIDE 0.9% INJ 10 ML SYR IV SCH (09:00)
== END 2023-06-26 09:50 | disposition home or self-care (01) ==
LOC: M INFU 09:25
PROVIDERS: ATTEND Family Medicine
DX: M31.30 Wegener's granulomatosis without renal involvement (principal); Z88.8 Allergy status to other drugs, medicaments and biological substances

== ENCOUNTER → 2023-07-24 | Outpatient (CLI) | payer MEDICARE, MEDICAID ==
[~2023-07-24] MED LIST changes: -SODIUM CHLORIDE 0.9% INJ 10 ML SYR IV PRN
== END ==
LOC: M WHC 07:51
PROVIDERS: ATTEND Family Medicine
DX: Z12.31 Encounter for screening mammogram for malignant neoplasm of breast (principal)

== ENCOUNTER 2023-07-26 08:45 | Outpatient (CLI) | payer MEDICARE, MEDICAID ==
[~2023-07-26] VITALS: Ht 167.6 cm; Wt 63.7 kg
[2023-07-26 08:57] VITALS: BP 193/74; O2SAT 97
[2023-07-26] MEDS ORDERED: SODIUM CHLORIDE 0.9% INJ 10 ML SYR IV SCH (09:00)
== END 2023-07-26 09:00 ==
LOC: M INFU 08:45
PROVIDERS: ATTEND Family Medicine
DX: M31.30 Wegener's granulomatosis without renal involvement (principal); Z88.8 Allergy status to other drugs, medicaments and biological substances

== ENCOUNTER 2023-08-28 08:28 | Outpatient (CLI) | payer MEDICARE, MEDICAID ==
[~2023-08-28] VITALS: Ht 157.5 cm; Wt 61.0 kg
[~2023-08-28 08:28] MED LIST changes: +CEFD300C42 PO
[2023-08-28] MEDS ORDERED: SODIUM CHLORIDE 0.9% INJ 10 ML SYR IV SCH (09:00)
[2023-08-28 09:35] VITALS: BP 127/58; O2SAT 96
== END 2023-08-28 09:30 ==
LOC: M INFU 08:28
PROVIDERS: ATTEND Family Medicine
DX: M31.30 Wegener's granulomatosis without renal involvement (principal); Z88.8 Allergy status to other drugs, medicaments and biological substances

== ENCOUNTER → 2023-08-29 | Outpatient (REF) | payer MEDICARE, MEDICAID ==
[2023-08-29 11:19] LABS: HEMATOCRIT 32.3 % (36.0-47.0)
[2023-08-29 11:57] LABS: CHOLESTEROL RISK RATIO 2.31 (<5); FREE T4 1.41 NG/DL (0.89-1.76); FREE THYROXINE INDEX 4.3 % (1.3-4.8); HDL CHOLESTEROL 51.3 MG/DL (>40); LDL CHOLESTEROL 43.3 MG/DL (<100); NON-HDL-C 67.7 MG/DL; T UPTAKE 36.8 % (22.5-37.0); THYROID STIMULATING HORMONE 0.128 uIU/ML (0.55-4.78); THYROXINE (T4) 11.8 UG/DL (4.5-10.9)
[2023-08-31 16:09] LABS: TISSUE TRANSGLUTAMINASE IgA <2 U/mL (0-3)
== END ==
PROVIDERS: ATTEND Family Medicine
DX: E78.2 Mixed hyperlipidemia (principal); K21.9 Gastro-esophageal reflux disease without esophagitis; E53.8 Deficiency of other specified B group vitamins

== ENCOUNTER 2023-09-25 09:20 | Outpatient (CLI) | payer MEDICARE, MEDICAID ==
[~2023-09-25] VITALS: Ht 157.5 cm; Wt 60.5 kg
[~2023-09-25 09:20] MED LIST changes: +CEFD1CAP9 PO; -CEFD300C42 PO; -FLUT50SP17 NARES; +FLUTISP NARES; +SODIUM CHLORIDE 0.9% INJ 10 ML SYR IV SCH
[2023-09-25 09:23] VITALS: BP 142/65; O2SAT 98
== END 2023-09-25 19:35 | disposition home or self-care (01) ==
LOC: M INFU 09:20
PROVIDERS: ATTEND Family Medicine
DX: M31.30 Wegener's granulomatosis without renal involvement (principal); Z88.8 Allergy status to other drugs, medicaments and biological substances

== ENCOUNTER → 2023-10-04 | Outpatient (CLI) | payer MEDICARE, MEDICAID ==
[~2023-10-04] MED LIST changes: -SODIUM CHLORIDE 0.9% INJ 10 ML SYR IV SCH
== END ==
LOC: M WHC 18:33
PROVIDERS: ATTEND Family Medicine
DX: Z12.31 Encounter for screening mammogram for malignant neoplasm of breast (principal)

== ENCOUNTER → 2023-10-12 | Outpatient (REF) | payer MEDICARE, MEDICAID ==
[~2023-10-12] MED LIST changes: +ALBU8.5H INH; +ANOR1AER PO; +ANTI2TAB16 PO; +CALC20SPR NARES; +GNP10TAB20 PO; +GUAI100S51 PO; +GUAISYP5 PO; -HYDR-3911; -HYDR50TA PO; +HYDR50TA46; +HYDR50TA47 PO; +MIRA1POW3 PO; +ONDA-195 PO; +PROC1CRE5 PR; +SYST0.6S OU; +[UNRECOGNIZED DRUG - CODE] PO
== END ==
PROVIDERS: ATTEND Family Medicine
DX: N18.6 End stage renal disease (principal); I47.10 Supraventricular tachycardia, unspecified; M31.0 Hypersensitivity angiitis; Z99.2 Dependence on renal dialysis; Z53.8 Procedure and treatment not carried out for other reasons

== ENCOUNTER 2023-10-25 08:34 | Outpatient (CLI) | payer MEDICARE, MEDICAID ==
[~2023-10-25 08:34] MED LIST changes: -ALBU8.5H INH; -ANOR1AER PO; -ANTI2TAB16 PO; -CALC20SPR NARES; -GNP10TAB20 PO; -GUAI100S51 PO; -GUAISYP5 PO; +HYDR-3911; +HYDR50TA PO; -HYDR50TA46; -HYDR50TA47 PO; -MIRA1POW3 PO; -ONDA-195 PO; -PROC1CRE5 PR; -SYST0.6S OU; -[UNRECOGNIZED DRUG - CODE] PO
[2023-10-25 08:45] VITALS: BP 157/69; O2SAT 99
[2023-10-25] MEDS ORDERED: SODIUM CHLORIDE 0.9% INJ 10 ML SYR IV SCH (09:00)
== END 2023-10-25 09:03 | disposition home or self-care (01) ==
LOC: M INFU 08:34
PROVIDERS: ATTEND Family Medicine
DX: M31.30 Wegener's granulomatosis without renal involvement (principal); Z88.6 Allergy status to analgesic agent; Z88.8 Allergy status to other drugs, medicaments and biological substances; Z91.048 Other nonmedicinal substance allergy status

== ENCOUNTER 2023-11-07 09:47 | Inpatient (IN) | payer MEDICARE, MEDICAID ==
[~2023-11-07] VITALS: Ht 157.5 cm; Wt 61.4 kg
[2023-11-07] VITALS (9 sets, daily range): BP systolic 136–162; BP diastolic 62–88; TEMP 97.2–99; O2SAT 88–99
[~2023-11-07 09:47] MED LIST changes: +CALC20SPR NARES; -HYDR-3911; -HYDR50TA PO; +HYDR50TA46; +HYDR50TA47 PO
[2023-11-07 10:47] LABS: VENOUS BASE EXCESS 8.1 (-2.0-2.0); VENOUS HCO3 31.5 MMOL/L (23.0-27.0); VENOUS O2 SATURATION 97.7 % (60.0-80.0); VENOUS PARTIAL PRESSURE CO2 38.7 mmHg (38.0-50.0); VENOUS PARTIAL PRESSURE O2 89.2 mmHg (30.0-50.0); VENOUS PH 7.528 UNITS (7.330-7.430); VENOUS STANDARD HCO3 31.9 MMOL/L; VENOUS TOTAL CO2 32.7 MMOL/L (24.0-28.0)
[2023-11-07] MEDS: COMBIVENT RESPIMAT 100-20MCG INHALER 4GM INH SCH ×3 (10:51→11:05)
[2023-11-07 10:54] LABS: BASO % 0.2 % (0.0-1.0); HEMATOCRIT 26.6 % (36.0-47.0); HEMOGLOBIN 8.2 g/dl (12.0-15.5); LYMPH # 0.4 10^3/uL (1.5-5.0); LYMPH % 7.3 % (24.0-44.0); MEAN CORPUSCULAR HEMOGLOBIN 28.7 pg (27.0-33.0); MEAN CORPUSCULAR HGB CONC 30.8 g/dl (32.0-36.5); MONO # 0.2 10^3/uL (0.0-0.8); MONO % 3.9 % (2.0-8.0); NEUTROPHILS # 4.5 10^3/uL (1.5-8.5); NEUTROPHILS % 88.2 % (36.0-66.0); RED BLOOD COUNT 2.86 10^6/uL (4.00-5.40); WHITE BLOOD COUNT 5.1 10^3/uL (4.0-10.0)
[2023-11-07 11:06] LABS: INR 1.07; PROTHROMBIN TIME 13.6 SECONDS (12.5-14.5)
[2023-11-07 11:07] LABS: PARTIAL THROMBOPLASTIN TIME 49.8 SECONDS (24.8-34.2)
[2023-11-07 11:23] LABS: PLATELET COUNT, AUTOMATED 98 10^3/uL (150-450)
[2023-11-07 11:24] LABS: C REACTIVE PROTEIN QUANTITATIV 19.8 MG/DL (<1.0)
[2023-11-07 11:25] LABS: ALBUMIN 3.1 G/DL (3.2-5.2); BILIRUBIN,TOTAL 0.2 MG/DL (0.3-1.2); CALCIUM LEVEL 8.7 MG/DL (8.3-10.6); CREATININE FOR GFR 3.24 MG/DL (0.55-1.30); GLOMERULAR FILTRATION RATE 14.9 (>39); MAGNESIUM LEVEL 1.6 MG/DL (1.8-2.4); POTASSIUM SERUM 3.9 MMOL/L (3.5-5.1); TOTAL PROTEIN 5.2 G/DL (5.7-8.2)
[2023-11-07 11:27] LABS: FERRITIN 1421.6 NG/ML (7.3-270.7)
[2023-11-07 11:32] LABS: PROCALCITONIN 3.73 ng/ml
[2023-11-07] MEDS ORDERED: MED REC IN PROGRESS XX SCH (13:05)
[2023-11-07] MEDS ORDERED: ACETAMINOPHEN 500 MG TAB PO ONE (13:10)
[2023-11-07] MEDS ORDERED: MAG SULF 1GM/100ML (MAG RUN) 1 GM in IV 1 EA IV ONE ×2 (14:20→18:20)
[2023-11-07] MEDS ORDERED: MOM 30ML SUSPENSION UDC PO PRN (14:50)
[2023-11-07] MEDS ORDERED: SENOKOT S TAB PO PRN (14:50)
[2023-11-07 15:45] LABS: C REACTIVE PROTEIN QUANTITATIV 22.2 MG/DL (<1.0); MAGNESIUM LEVEL 1.6 MG/DL (1.8-2.4)
[2023-11-07 15:53] LABS: PROCALCITONIN 4.87 ng/ml
[2023-11-07] MEDS: cefTRIAXone SOD 1 GM in D5W MINI-BAG PLUS 50 ML IV SCH (16:41)
[2023-11-07] MEDS ORDERED: REMDESIVIR 200 MG in NS 250 ML IV ONE (18:00)
[2023-11-07] MEDS: ACETAMINOPHEN TAB 650MG DOSE (2X325MG) PO PRN (20:23)
[2023-11-07] MEDS: BUDESONIDE 0.5 MG/2 ML INHALATION SUSPENSION NEB SCH (20:47)
[2023-11-07] MEDS: RAMELTEON 8 MG TAB (ROZEREM) PO SCH (21:00)
[2023-11-07] MEDS: DOXYCYCLINE HYCLATE 100MG TABLET PO SCH (22:00)
[2023-11-08] VITALS (17 sets, daily range): BP systolic 135–148; BP diastolic 60–67; TEMP 97.3–102.7; O2SAT 92–100
[2023-11-08] MEDS ORDERED: PROC1CRE5 PR (03:14)
[2023-11-08] MEDS ORDERED: NYST-13 EXT (03:14)
[2023-11-08] MEDS ORDERED: AZEL1SPR3 NARES (03:14)
[2023-11-08] MEDS ORDERED: MIRA1POW3 PO (03:14)
[2023-11-08] MEDS ORDERED: RENATAB5 PO (03:14)
[2023-11-08] MEDS ORDERED: ANTI2TAB16 PO (03:14)
[2023-11-08] MEDS ORDERED: ALBU8.5H INH (03:14)
[2023-11-08] MEDS ORDERED: GUAISYP5 PO (03:14)
[2023-11-08] MEDS ORDERED: MUCI600T31 PO (03:14)
[2023-11-08] MEDS ORDERED: SYNT100T PO (03:14)
[2023-11-08] MEDS ORDERED: SYST0.6S OU (03:14)
[2023-11-08] MEDS ORDERED: GUAI100S51 PO (03:14)
[2023-11-08] MEDS ORDERED: [UNRECOGNIZED DRUG - CODE] PO (03:14)
[2023-11-08] MEDS ORDERED: DICY20TA3 PO (03:14)
[2023-11-08] MEDS ORDERED: GNP10TAB20 PO (03:14)
[2023-11-08] MEDS ORDERED: TUMS500C PO (03:14)
[2023-11-08] MEDS ORDERED: HOME MED LIST COMPLETE! XX SCH (03:20)
[2023-11-08] MEDS ORDERED: ONDA-195 PO (03:26)
[2023-11-08] MEDS: ACETAMINOPHEN TAB 650MG DOSE (2X325MG) PO PRN ×3 (03:40→15:50)
[2023-11-08] MEDS ORDERED: ALBUTEROL 90 MCG/ACT 8GM HFA INHALER INH PRN (03:45)
[2023-11-08] MEDS ORDERED: ALBUTEROL SULFATE 2.5MG/0.5ML INH NEB SOLN INH PRN (03:45)
[2023-11-08] MEDS ORDERED: CALCIUM CARBONATE 500 MG CHEW U/D PO PRN (03:45)
[2023-11-08] MEDS ORDERED: ANUSOL HC CREAM 30GM PR PRN (03:45)
[2023-11-08] MEDS ORDERED: NYSTATIN CREAM 15GM EXT PRN (03:45)
[2023-11-08] MEDS ORDERED: DOCUSATE SODIUM 100MG CAPSULE PO PRN (03:45)
[2023-11-08] MEDS ORDERED: SOD POLYSTYRENE SULFONATE SUSP 15GM 60ML UD PO PRN (03:45)
[2023-11-08] MEDS ORDERED: PILL CUTTER 1 EACH XX PRN (04:30)
[2023-11-08] MEDS: LEVOTHYROXINE 100MCG TABLET (0.1MG) PO SCH (05:25)
[2023-11-08] MEDS: guaiFENesin DM LIQ 10ML UD PO PRN ×3 (06:04→21:51)
[2023-11-08] MEDS: DICYCLOMINE 10 MG CAP PO SCH ×3 (06:04→18:26)
[2023-11-08] MEDS: FLUTICASONE HFA 110MCG 12GM INHALER (FLOVENT) INH SCH ×2 (07:13→20:21)
[2023-11-08] MEDS: BUDESONIDE 0.5 MG/2 ML INHALATION SUSPENSION NEB SCH ×2 (07:14→20:22)
[2023-11-08 08:57] LABS: ALKALINE PHOSPHATASE 52 U/L (46-116); ALT/SGPT 23 U/L (7.0-40); AST/SGOT 42 U/L (<34); BILIRUBIN,DIRECT < 0.1 MG/DL (<0.4); BILIRUBIN,TOTAL < 0.2 MG/DL (0.3-1.2); BLOOD UREA NITROGEN 23 MG/DL (9-23); CALCIUM LEVEL 8.2 MG/DL (8.3-10.6); CARBON DIOXIDE LEVEL 29 MMOL/L (20-31); CHLORIDE LEVEL 101 MMOL/L (98-107); CREATININE FOR GFR 5.58 MG/DL (0.55-1.30); GLUCOSE, FASTING 91 MG/DL (74-106); MAGNESIUM LEVEL 2.1 MG/DL (1.8-2.4); POTASSIUM SERUM 4.4 MMOL/L (3.5-5.1); SODIUM LEVEL 136 MMOL/L (136-145); TOTAL PROTEIN 5.1 G/DL (5.7-8.2)
[2023-11-08] MEDS: MIRALAX *UNIT DOSE* 17GM PACKET PO SCH (09:00)
[2023-11-08] MEDS ORDERED: ENTER DRUG NAME HERE (PATIENT'S OWN MED) OU SCH (09:00)
[2023-11-08] MEDS ORDERED: TIAGABINE PO SCH (09:00)
[2023-11-08] MEDS ORDERED: ENTER DRUG NAME HERE (PATIENT'S OWN MED) PO SCH (09:00)
[2023-11-08] MEDS: SIMETHICONE 80MG CHEW TAB PO SCH ×4 (09:23→21:47)
[2023-11-08] MEDS: amLODIPine 5 MG TAB PO SCH ×2 (09:23→21:47)
[2023-11-08] MEDS: ONDANSETRON 4MG TAB PO PRN (09:24)
[2023-11-08] MEDS: DOXYCYCLINE HYCLATE 100MG TABLET PO SCH ×2 (09:24→21:47)
[2023-11-08] MEDS: PANTOPRAZOLE 40MG TAB (PROTONIX) PO SCH (09:25)
[2023-11-08] MEDS: VITAMIN D 1,000 INTERNATIONAL UNITS TABLET PO SCH (09:25)
[2023-11-08] MEDS: METOPROLOL TART 50 MG TAB PO SCH ×2 (09:25→21:47)
[2023-11-08] MEDS: guaiFENesin ER TABLET 600 MG TAB PO SCH ×2 (09:25→21:47)
[2023-11-08] MEDS: **hydrALAZINE** 50 MG TAB PO SCH ×3 (09:26→21:46)
[2023-11-08] MEDS: HEPARIN SOD (PORCINE) 5000UNITS/ML 1ML VIAL/SYRINGE SQ SCH ×2 (09:27→20:31)
[2023-11-08] MEDS: SODIUM CHLORIDE NASAL 0.65% SPRAY BTL (OCEAN) SCH ×3 (09:28→21:44)
[2023-11-08] MEDS: FLUTICASONE PROP 0.05% NASAL SPRAY 16 GM (FLONASE) NARES SCH ×2 (09:28→21:43)
[2023-11-08] MEDS: ARTIFICIAL TEARS DROPS 15ML BTL (VISINE DRY RELIEF) OU SCH ×4 (09:28→21:45)
[2023-11-08] MEDS: NEPHRO-VIT TAB (NEPHROCAPS) PO SCH (14:58)
[2023-11-08] MEDS: cefTRIAXone SOD 1 GM in D5W MINI-BAG PLUS 50 ML IV SCH (14:58)
[2023-11-08] MEDS: REMDESIVIR 100 MG in NS 250 ML IV SCH (18:27)
[2023-11-08] MEDS: AZELASTINE 137MCG NASAL SPY 30 ML (ASTELIN) SCH (21:41)
[2023-11-08] MEDS: CALCITONIN NASAL SPRAY 3.7ML BTL SCH (21:42)
[2023-11-08] MEDS: CETIRIZINE (ZyrTEC) 10 MG TAB PO SCH (21:46)
[2023-11-08] MEDS: LOSARTAN 50MG TABLET PO SCH (21:46)
[2023-11-08] MEDS: RAMELTEON 8 MG TAB (ROZEREM) PO SCH (21:46)
[2023-11-08] MEDS: PRAVASTATIN 20 MG TAB PO SCH (21:47)
[2023-11-09] VITALS (20 sets, daily range): BP systolic 80–142; BP diastolic 30–70; TEMP 97.5–101.7; O2SAT 90–99
[2023-11-09] MEDS: UNRESOLVED PATIENT OWN MED ORDER XX SCH (00:01)
[2023-11-09] MEDS: **hydrALAZINE HCL** 25 MG TAB PO SCH ×3 (04:08→20:45)
[2023-11-09] MEDS: DICYCLOMINE 10 MG CAP PO SCH ×3 (04:08→17:16)
[2023-11-09] MEDS: LEVOTHYROXINE 100MCG TABLET (0.1MG) PO SCH (05:36)
[2023-11-09] MEDS: ACETAMINOPHEN TAB 650MG DOSE (2X325MG) PO PRN ×3 (05:42→20:24)
[2023-11-09] MEDS: guaiFENesin DM LIQ 10ML UD PO PRN ×3 (05:54→20:25)
[2023-11-09 06:53] LABS: CALCIUM LEVEL 7.7 MG/DL (8.3-10.6); CREATININE FOR GFR 7.88 MG/DL (0.55-1.30); GLOMERULAR FILTRATION RATE 5.4 (>39); MAGNESIUM LEVEL 2.1 MG/DL (1.8-2.4); POTASSIUM SERUM 4.5 MMOL/L (3.5-5.1)
[2023-11-09] MEDS ORDERED: LIDOCAINE 1% SDV 5ML VIAL SC PRN (07:10)
[2023-11-09] MEDS ORDERED: SODIUM CHLORIDE 0.9% 1000ML IV PRN (07:10)
[2023-11-09] MEDS ORDERED: HEPARIN 1,000UNITS/ML 10ML VIAL (FOR RADIOLOGY & DIALYSIS ONLY) XX SCH (07:10)
[2023-11-09] MEDS ORDERED: HEPARIN 1,000UNITS/ML 10ML VIAL (FOR RADIOLOGY & DIALYSIS ONLY) IV PRN (07:10)
[2023-11-09 08:21] LABS: HEMATOCRIT 25.5 % (36.0-47.0); HEMOGLOBIN 7.9 g/dl (12.0-15.5)
[2023-11-09] MEDS: amLODIPine 5 MG TAB PO SCH ×2 (09:00→20:46)
[2023-11-09] MEDS: METOPROLOL TART 50 MG TAB PO SCH ×2 (09:00→20:44)
[2023-11-09] MEDS: SODIUM CHLORIDE NASAL 0.65% SPRAY BTL (OCEAN) SCH ×3 (09:00→20:48)
[2023-11-09] MEDS: BUDESONIDE 0.5 MG/2 ML INHALATION SUSPENSION NEB SCH ×2 (10:21→19:40)
[2023-11-09] MEDS: FLUTICASONE HFA 110MCG 12GM INHALER (FLOVENT) INH SCH ×2 (10:21→19:40)
[2023-11-09] MEDS ORDERED: DARBEPOETIN 200MCG/0.4ML *DIALYSIS* SYRINGE IV SCH ×2 (12:10→12:15)
[2023-11-09] MEDS: SIMETHICONE 80MG CHEW TAB PO SCH ×4 (12:51→20:44)
[2023-11-09] MEDS: ARTIFICIAL TEARS DROPS 15ML BTL (VISINE DRY RELIEF) OU SCH ×4 (12:52→20:49)
[2023-11-09] MEDS: FLUTICASONE PROP 0.05% NASAL SPRAY 16 GM (FLONASE) NARES SCH ×2 (12:53→20:48)
[2023-11-09] MEDS: HEPARIN SOD (PORCINE) 5000UNITS/ML 1ML VIAL/SYRINGE SQ SCH ×2 (13:01→23:51)
[2023-11-09] MEDS: MIRALAX *UNIT DOSE* 17GM PACKET PO SCH (13:01)
[2023-11-09] MEDS: guaiFENesin ER TABLET 600 MG TAB PO SCH ×2 (13:02→20:45)
[2023-11-09] MEDS: PANTOPRAZOLE 40MG TAB (PROTONIX) PO SCH (13:03)
[2023-11-09] MEDS: VITAMIN D 1,000 INTERNATIONAL UNITS TABLET PO SCH (13:03)
[2023-11-09] MEDS: DOXYCYCLINE HYCLATE 100MG TABLET PO SCH ×2 (13:12→20:46)
[2023-11-09 15:08] LABS: MYCOPLASMA PNEUMONIAE IgG <100 U/mL (0-99); MYCOPLASMA PNEUMONIAE IgM <770 U/mL (0-769)
[2023-11-09] MEDS ORDERED: NS 1,000 ML IV ONE (15:45)
[2023-11-09] MEDS: NEPHRO-VIT TAB (NEPHROCAPS) PO SCH (16:03)
[2023-11-09] MEDS: cefTRIAXone SOD 1 GM in D5W MINI-BAG PLUS 50 ML IV SCH (16:04)
[2023-11-09] MEDS: REMDESIVIR 100 MG in NS 250 ML IV SCH (17:16)
[2023-11-09 17:56] LABS: C REACTIVE PROTEIN QUANTITATIV 20.8 MG/DL (<1.0)
[2023-11-09 18:09] LABS: PROCALCITONIN 7.43 ng/ml
[2023-11-09] MEDS: LOSARTAN 50MG TABLET PO SCH (20:44)
[2023-11-09] MEDS: PRAVASTATIN 20 MG TAB PO SCH (20:45)
[2023-11-09] MEDS: CETIRIZINE (ZyrTEC) 10 MG TAB PO SCH (20:45)
[2023-11-09] MEDS: RAMELTEON 8 MG TAB (ROZEREM) PO SCH (20:45)
[2023-11-09] MEDS: AZELASTINE 137MCG NASAL SPY 30 ML (ASTELIN) SCH (20:48)
[2023-11-09] MEDS: CALCITONIN NASAL SPRAY 3.7ML BTL SCH (20:48)
[2023-11-09 23:17] LABS: HEMATOCRIT 24.9 % (36.0-47.0); HEMOGLOBIN 7.9 g/dl (12.0-15.5); LYMPH # 0.3 10^3/uL (1.5-5.0); LYMPH % 13.4 % (24.0-44.0); MEAN CORPUSCULAR HEMOGLOBIN 29.3 pg (27.0-33.0); MEAN CORPUSCULAR HGB CONC 31.7 g/dl (32.0-36.5); MEAN CORPUSCULAR VOLUME 92.2 fl (80.0-96.0); MONO # 0.2 10^3/uL (0.0-0.8); MONO % 8.5 % (2.0-8.0); NEUTROPHILS # 1.6 10^3/uL (1.5-8.5); NEUTROPHILS % 77.1 % (36.0-66.0)
[2023-11-09 23:20] LABS: PLATELET COUNT, AUTOMATED 84 10^3/uL (150-450)
[2023-11-10] VITALS (7 sets, daily range): BP systolic 120–158; BP diastolic 58–66; TEMP 97.3–99; O2SAT 93–96
[2023-11-10] MEDS: LEVOTHYROXINE 100MCG TABLET (0.1MG) PO SCH (06:43)
[2023-11-10] MEDS: DICYCLOMINE 10 MG CAP PO SCH ×3 (06:43→17:32)
[2023-11-10] MEDS: guaiFENesin DM LIQ 10ML UD PO PRN ×3 (06:45→21:51)
[2023-11-10] MEDS: ACETAMINOPHEN TAB 650MG DOSE (2X325MG) PO PRN ×2 (06:45→21:51)
[2023-11-10] MEDS: BUDESONIDE 0.5 MG/2 ML INHALATION SUSPENSION NEB SCH ×2 (08:00→20:00)
[2023-11-10 08:45] LABS: HEMATOCRIT 25.4 % (36.0-47.0); HEMOGLOBIN 8.2 g/dl (12.0-15.5); LYMPH # 0.5 10^3/uL (1.5-5.0); LYMPH % 20.5 % (24.0-44.0); MEAN CORPUSCULAR HEMOGLOBIN 29.7 pg (27.0-33.0); MEAN CORPUSCULAR HGB CONC 32.3 g/dl (32.0-36.5); MONO # 0.2 10^3/uL (0.0-0.8); MONO % 7.9 % (2.0-8.0); NEUTROPHILS # 1.7 10^3/uL (1.5-8.5); NEUTROPHILS % 70.3 % (36.0-66.0); PLATELET COUNT, AUTOMATED 110 10^3/uL (150-450); RED BLOOD COUNT 2.76 10^6/uL (4.00-5.40); WHITE BLOOD COUNT 2.4 10^3/uL (4.0-10.0)
[2023-11-10 09:15] LABS: CALCIUM LEVEL 7.4 MG/DL (8.3-10.6); CREATININE FOR GFR 5.25 MG/DL (0.55-1.30); GLOMERULAR FILTRATION RATE 8.6 (>39); MAGNESIUM LEVEL 1.8 MG/DL (1.8-2.4); POTASSIUM SERUM 3.9 MMOL/L (3.5-5.1)
[2023-11-10] MEDS: SIMETHICONE 80MG CHEW TAB PO SCH ×4 (10:33→21:51)
[2023-11-10] MEDS: VITAMIN D 1,000 INTERNATIONAL UNITS TABLET PO SCH (10:33)
[2023-11-10] MEDS: PANTOPRAZOLE 40MG TAB (PROTONIX) PO SCH (10:33)
[2023-11-10] MEDS: NEPHRO-VIT TAB (NEPHROCAPS) PO SCH (10:34)
[2023-11-10] MEDS: METOPROLOL TART 50 MG TAB PO SCH ×2 (10:34→21:59)
[2023-11-10] MEDS: DOXYCYCLINE HYCLATE 100MG TABLET PO SCH ×2 (10:35→21:31)
[2023-11-10] MEDS: amLODIPine 5 MG TAB PO SCH ×2 (10:35→21:32)
[2023-11-10] MEDS: **hydrALAZINE** 50 MG TAB PO SCH ×3 (10:36→21:32)
[2023-11-10] MEDS: UNRESOLVED PATIENT OWN MED ORDER XX SCH (10:36)
[2023-11-10] MEDS: guaiFENesin ER TABLET 600 MG TAB PO SCH ×2 (10:36→21:32)
[2023-11-10] MEDS: MIRALAX *UNIT DOSE* 17GM PACKET PO SCH (10:39)
[2023-11-10] MEDS: HEPARIN SOD (PORCINE) 5000UNITS/ML 1ML VIAL/SYRINGE SQ SCH ×2 (10:40→21:31)
[2023-11-10] MEDS: ARTIFICIAL TEARS DROPS 15ML BTL (VISINE DRY RELIEF) OU SCH ×4 (10:40→21:33)
[2023-11-10] MEDS: FLUTICASONE PROP 0.05% NASAL SPRAY 16 GM (FLONASE) NARES SCH ×2 (10:41→21:33)
[2023-11-10] MEDS: SODIUM CHLORIDE NASAL 0.65% SPRAY BTL (OCEAN) SCH ×3 (10:41→21:33)
[2023-11-10] MEDS: FLUTICASONE HFA 110MCG 12GM INHALER (FLOVENT) INH SCH ×2 (11:32→20:00)
[2023-11-10 12:29] LABS: CLOSTRIDIUM DIFFICILE PCR NEGATIVE (NEGATIVE)
[2023-11-10] MEDS ORDERED: LOPERAMIDE 2 MG CAPLET PO PRN (13:10)
[2023-11-10] MEDS: LOPERAMIDE 2 MG CAPLET PO PRN (13:11)
[2023-11-10] MEDS ORDERED: LOPERAMIDE 2 MG CAPLET PO ONE (13:30)
[2023-11-10] MEDS: cefTRIAXone SOD 1 GM in D5W MINI-BAG PLUS 50 ML IV SCH (15:08)
[2023-11-10] MEDS: REMDESIVIR 100 MG in NS 250 ML IV SCH (17:31)
[2023-11-10] MEDS: CETIRIZINE (ZyrTEC) 10 MG TAB PO SCH (21:32)
[2023-11-10] MEDS: CALCITONIN NASAL SPRAY 3.7ML BTL SCH (21:33)
[2023-11-10] MEDS: AZELASTINE 137MCG NASAL SPY 30 ML (ASTELIN) SCH (21:33)
[2023-11-10] MEDS: PRAVASTATIN 20 MG TAB PO SCH (21:58)
[2023-11-10] MEDS: LOSARTAN 50MG TABLET PO SCH (21:59)
[2023-11-10] MEDS: RAMELTEON 8 MG TAB (ROZEREM) PO SCH (21:59)
[2023-11-11] VITALS (7 sets, daily range): BP systolic 118–149; BP diastolic 54–66; TEMP 96.9–98.8; O2SAT 94–99
[2023-11-11] MEDS: UNRESOLVED PATIENT OWN MED ORDER XX SCH (00:01)
[2023-11-11] MEDS: DICYCLOMINE 10 MG CAP PO SCH ×3 (06:15→17:01)
[2023-11-11] MEDS: LEVOTHYROXINE 100MCG TABLET (0.1MG) PO SCH (06:15)
[2023-11-11] MEDS: guaiFENesin DM LIQ 10ML UD PO PRN ×3 (06:35→20:32)
[2023-11-11] MEDS: ACETAMINOPHEN TAB 650MG DOSE (2X325MG) PO PRN ×3 (06:36→20:34)
[2023-11-11] MEDS: FLUTICASONE HFA 110MCG 12GM INHALER (FLOVENT) INH SCH ×2 (07:52→20:22)
[2023-11-11] MEDS: BUDESONIDE 0.5 MG/2 ML INHALATION SUSPENSION NEB SCH ×2 (07:53→20:00)
[2023-11-11 07:56] LABS: HEMATOCRIT 26.1 % (36.0-47.0); HEMOGLOBIN 8.2 g/dl (12.0-15.5); LYMPH # 0.7 10^3/uL (1.5-5.0); LYMPH % 20.9 % (24.0-44.0); MEAN CORPUSCULAR HEMOGLOBIN 29.1 pg (27.0-33.0); MEAN CORPUSCULAR HGB CONC 31.4 g/dl (32.0-36.5); MEAN CORPUSCULAR VOLUME 92.6 fl (80.0-96.0); MONO # 0.3 10^3/uL (0.0-0.8); NEUTROPHILS # 2.2 10^3/uL (1.5-8.5); NEUTROPHILS % 68.9 % (36.0-66.0); PLATELET COUNT, AUTOMATED 110 10^3/uL (150-450); RED BLOOD COUNT 2.82 10^6/uL (4.00-5.40); WHITE BLOOD COUNT 3.3 10^3/uL (4.0-10.0)
[2023-11-11 08:22] LABS: CALCIUM LEVEL 7.5 MG/DL (8.3-10.6); CREATININE FOR GFR 7.07 MG/DL (0.55-1.30); GLOMERULAR FILTRATION RATE 6.1 (>39); MAGNESIUM LEVEL 1.9 MG/DL (1.8-2.4); POTASSIUM SERUM 3.9 MMOL/L (3.5-5.1)
[2023-11-11] MEDS: MIRALAX *UNIT DOSE* 17GM PACKET PO SCH (09:00)
[2023-11-11] MEDS: **hydrALAZINE** 50 MG TAB PO SCH ×3 (09:05→20:33)
[2023-11-11] MEDS: amLODIPine 5 MG TAB PO SCH ×2 (09:05→20:34)
[2023-11-11] MEDS: NEPHRO-VIT TAB (NEPHROCAPS) PO SCH (09:05)
[2023-11-11] MEDS: guaiFENesin ER TABLET 600 MG TAB PO SCH ×2 (09:05→20:33)
[2023-11-11] MEDS: METOPROLOL TART 50 MG TAB PO SCH (09:05)
[2023-11-11] MEDS: VITAMIN D 1,000 INTERNATIONAL UNITS TABLET PO SCH (09:05)
[2023-11-11] MEDS: DOXYCYCLINE HYCLATE 100MG TABLET PO SCH ×2 (09:05→20:34)
[2023-11-11] MEDS: PANTOPRAZOLE 40MG TAB (PROTONIX) PO SCH (09:05)
[2023-11-11] MEDS: SIMETHICONE 80MG CHEW TAB PO SCH ×4 (09:05→20:33)
[2023-11-11] MEDS: HEPARIN SOD (PORCINE) 5000UNITS/ML 1ML VIAL/SYRINGE SQ SCH ×2 (09:05→20:33)
[2023-11-11] MEDS: SODIUM CHLORIDE NASAL 0.65% SPRAY BTL (OCEAN) SCH ×3 (09:06→20:36)
[2023-11-11] MEDS: FLUTICASONE PROP 0.05% NASAL SPRAY 16 GM (FLONASE) NARES SCH ×2 (09:06→20:35)
[2023-11-11] MEDS: ARTIFICIAL TEARS DROPS 15ML BTL (VISINE DRY RELIEF) OU SCH ×4 (09:06→20:35)
[2023-11-11] MEDS: LOPERAMIDE 2 MG CAPLET PO PRN ×3 (11:08→17:00)
[2023-11-11] MEDS: ONDANSETRON 4MG TAB PO PRN ×2 (11:59→23:23)
[2023-11-11] MEDS: cefTRIAXone SOD 1 GM in D5W MINI-BAG PLUS 50 ML IV SCH (14:48)
[2023-11-11] MEDS ORDERED: dexAMETHasone 4 MG TAB PO SCH (15:50)
[2023-11-11] MEDS: RAMELTEON 8 MG TAB (ROZEREM) PO SCH (20:32)
[2023-11-11] MEDS: CETIRIZINE (ZyrTEC) 10 MG TAB PO SCH (20:33)
[2023-11-11] MEDS: PRAVASTATIN 20 MG TAB PO SCH (20:34)
[2023-11-11] MEDS: LOSARTAN 50MG TABLET PO SCH (20:35)
[2023-11-11] MEDS: AZELASTINE 137MCG NASAL SPY 30 ML (ASTELIN) SCH (20:35)
[2023-11-11] MEDS: CALCITONIN NASAL SPRAY 3.7ML BTL SCH (20:36)
[2023-11-12] VITALS: BP 123/56; TEMP 97.6; O2SAT 96
[2023-11-12] MEDS: UNRESOLVED PATIENT OWN MED ORDER XX SCH (00:01)
[2023-11-12 04:00] VITALS: BP 138/59; TEMP 98.8; O2SAT 96
[2023-11-12] MEDS: LEVOTHYROXINE 100MCG TABLET (0.1MG) PO SCH (05:11)
[2023-11-12] MEDS: **hydrALAZINE HCL** 25 MG TAB PO SCH ×3 (05:11→20:39)
[2023-11-12] MEDS: DICYCLOMINE 10 MG CAP PO SCH ×3 (05:11→17:08)
[2023-11-12] MEDS: guaiFENesin DM LIQ 10ML UD PO PRN ×2 (05:18→20:37)
[2023-11-12] MEDS: ACETAMINOPHEN TAB 650MG DOSE (2X325MG) PO PRN ×2 (05:18→20:39)
[2023-11-12] MEDS ORDERED: SODIUM CHLORIDE 0.9% 1000ML IV PRN (06:00)
[2023-11-12] MEDS ORDERED: HEPARIN 1,000UNITS/ML 10ML VIAL (FOR RADIOLOGY & DIALYSIS ONLY) XX SCH (06:00)
[2023-11-12] MEDS ORDERED: LIDOCAINE 1% SDV 5ML VIAL SC PRN (06:00)
[2023-11-12] MEDS ORDERED: LOMOTIL 2.5MG/0.025MG TABLET PO ONE (06:55)
[2023-11-12 07:02] LABS: CALCIUM LEVEL 7.5 MG/DL (8.3-10.6); CREATININE FOR GFR 8.59 MG/DL (0.55-1.30); GLOMERULAR FILTRATION RATE 4.8 (>39); MAGNESIUM LEVEL 1.7 MG/DL (1.8-2.4); POTASSIUM SERUM 3.6 MMOL/L (3.5-5.1)
[2023-11-12] MEDS: SIMETHICONE 80MG CHEW TAB PO SCH ×4 (07:45→20:38)
[2023-11-12] MEDS: amLODIPine 5 MG TAB PO SCH ×2 (07:45→20:38)
[2023-11-12] MEDS: guaiFENesin ER TABLET 600 MG TAB PO SCH ×2 (07:45→20:39)
[2023-11-12] MEDS: VITAMIN D 1,000 INTERNATIONAL UNITS TABLET PO SCH (07:45)
[2023-11-12] MEDS: PANTOPRAZOLE 40MG TAB (PROTONIX) PO SCH (07:46)
[2023-11-12] MEDS: DOXYCYCLINE HYCLATE 100MG TABLET PO SCH (07:46)
[2023-11-12] MEDS: HEPARIN SOD (PORCINE) 5000UNITS/ML 1ML VIAL/SYRINGE SQ SCH ×2 (07:47→20:37)
[2023-11-12] MEDS: FLUTICASONE PROP 0.05% NASAL SPRAY 16 GM (FLONASE) NARES SCH ×2 (07:47→20:40)
[2023-11-12] MEDS: ARTIFICIAL TEARS DROPS 15ML BTL (VISINE DRY RELIEF) OU SCH ×4 (07:50→20:40)
[2023-11-12] MEDS: SODIUM CHLORIDE NASAL 0.65% SPRAY BTL (OCEAN) SCH ×3 (07:50→20:40)
[2023-11-12] MEDS: ONDANSETRON 4MG TAB PO PRN ×2 (07:51→20:49)
[2023-11-12] MEDS: MIRALAX *UNIT DOSE* 17GM PACKET PO SCH (07:52)
[2023-11-12] MEDS: FLUTICASONE HFA 110MCG 12GM INHALER (FLOVENT) INH SCH ×2 (07:59→20:04)
[2023-11-12] MEDS: BUDESONIDE 0.5 MG/2 ML INHALATION SUSPENSION NEB SCH ×2 (08:00→20:00)
[2023-11-12] MEDS ORDERED: PROMETHAZINE 25MG/ML 1ML VIAL IV PRN (08:10)
[2023-11-12] MEDS: NEPHRO-VIT TAB (NEPHROCAPS) PO SCH (12:42)
[2023-11-12] MEDS: METAMUCIL (PSYLLIUM) PACKET PO SCH (12:45)
[2023-11-12 12:50] VITALS: BP 135/61; TEMP 98.1; O2SAT 100
[2023-11-12] MEDS: LOMOTIL 2.5MG/0.025MG TABLET PO SCH ×2 (15:44→21:00)
[2023-11-12] MEDS: cefTRIAXone SOD 1 GM in D5W MINI-BAG PLUS 50 ML IV SCH (15:45)
[2023-11-12 16:08] LABS: BODY FLUID CULTURE Not indicated. (.); ORGANISM ID Not indicated. (.); SPECIMEN SOURCE Urine (.); URINE STREP PNEUMONIAE ANTIGEN Negative (Negative)
[2023-11-12 19:54] VITALS: BP 142/68; TEMP 98.4; O2SAT 99
[2023-11-12] MEDS: PRAVASTATIN 20 MG TAB PO SCH (20:37)
[2023-11-12] MEDS: LOSARTAN 50MG TABLET PO SCH (20:38)
[2023-11-12] MEDS: CETIRIZINE (ZyrTEC) 10 MG TAB PO SCH (20:39)
[2023-11-12] MEDS: RAMELTEON 8 MG TAB (ROZEREM) PO SCH (20:39)
[2023-11-12] MEDS: AZELASTINE 137MCG NASAL SPY 30 ML (ASTELIN) SCH (20:40)
[2023-11-12] MEDS: CALCITONIN NASAL SPRAY 3.7ML BTL SCH (20:41)
[2023-11-13] MEDS: UNRESOLVED PATIENT OWN MED ORDER XX SCH ×2 (00:01→23:01)
[2023-11-13 04:16] VITALS: BP 121/57; TEMP 98; O2SAT 92
[2023-11-13] MEDS: guaiFENesin DM LIQ 10ML UD PO PRN (06:32)
[2023-11-13] MEDS: DICYCLOMINE 10 MG CAP PO SCH ×3 (06:32→16:27)
[2023-11-13] MEDS: LEVOTHYROXINE 100MCG TABLET (0.1MG) PO SCH (06:32)
[2023-11-13] MEDS: ACETAMINOPHEN TAB 650MG DOSE (2X325MG) PO PRN (06:32)
[2023-11-13 06:38] LABS: CALCIUM LEVEL 7.3 MG/DL (8.3-10.6); CREATININE FOR GFR 5.14 MG/DL (0.55-1.30); GLOMERULAR FILTRATION RATE 8.8 (>39); MAGNESIUM LEVEL 1.7 MG/DL (1.8-2.4); POTASSIUM SERUM 3.4 MMOL/L (3.5-5.1)
[2023-11-13 07:22] LABS: HEMATOCRIT 24.4 % (36.0-47.0); HEMOGLOBIN 7.7 g/dl (12.0-15.5); MEAN CORPUSCULAR HEMOGLOBIN 28.7 pg (27.0-33.0); MEAN CORPUSCULAR HGB CONC 31.6 g/dl (32.0-36.5); PLATELET COUNT, AUTOMATED 132 10^3/uL (150-450); RED BLOOD COUNT 2.68 10^6/uL (4.00-5.40); WHITE BLOOD COUNT 3.5 10^3/uL (4.0-10.0)
[2023-11-13] MEDS ORDERED: POTASSIUM CHLORIDE 10MEQ SR TABLET PO ONE (07:30)
[2023-11-13 07:45] VITALS: BP 115/54; TEMP 99.3; O2SAT 94
[2023-11-13] MEDS: BUDESONIDE 0.5 MG/2 ML INHALATION SUSPENSION NEB SCH (08:04)
[2023-11-13] MEDS: FLUTICASONE HFA 110MCG 12GM INHALER (FLOVENT) INH SCH ×2 (08:04→20:10)
[2023-11-13] MEDS: METAMUCIL (PSYLLIUM) PACKET PO SCH (08:48)
[2023-11-13] MEDS: HEPARIN SOD (PORCINE) 5000UNITS/ML 1ML VIAL/SYRINGE SQ SCH ×2 (08:49→20:54)
[2023-11-13] MEDS: NEPHRO-VIT TAB (NEPHROCAPS) PO SCH (08:49)
[2023-11-13] MEDS: SIMETHICONE 80MG CHEW TAB PO SCH ×4 (08:50→20:53)
[2023-11-13] MEDS: VITAMIN D 1,000 INTERNATIONAL UNITS TABLET PO SCH (08:50)
[2023-11-13] MEDS: ARTIFICIAL TEARS DROPS 15ML BTL (VISINE DRY RELIEF) OU SCH ×4 (08:51→20:56)
[2023-11-13] MEDS: amLODIPine 5 MG TAB PO SCH ×2 (08:51→20:54)
[2023-11-13] MEDS: guaiFENesin ER TABLET 600 MG TAB PO SCH ×2 (08:51→20:53)
[2023-11-13] MEDS: **hydrALAZINE** 50 MG TAB PO SCH ×3 (08:51→20:53)
[2023-11-13] MEDS: PANTOPRAZOLE 40MG TAB (PROTONIX) PO SCH (08:51)
[2023-11-13] MEDS: SODIUM CHLORIDE NASAL 0.65% SPRAY BTL (OCEAN) SCH ×3 (08:52→20:55)
[2023-11-13] MEDS: FLUTICASONE PROP 0.05% NASAL SPRAY 16 GM (FLONASE) NARES SCH ×2 (08:52→20:56)
[2023-11-13] MEDS ORDERED: MAGNESIUM OXIDE 400MG TAB (MAG-OX) PO ONE (09:00)
[2023-11-13] MEDS: LOMOTIL 2.5MG/0.025MG TABLET PO SCH ×3 (09:00→20:53)
[2023-11-13 09:08] VITALS: TEMP 98.3
[2023-11-13] MEDS: ONDANSETRON 4MG TAB PO PRN (12:44)
[2023-11-13 15:10] VITALS: BP_SYST 118; BP_SYST 188; BP_DIAS 56; TEMP 99; O2SAT 91
[2023-11-13] MEDS: cefTRIAXone SOD 1 GM in D5W MINI-BAG PLUS 50 ML IV SCH (15:31)
[2023-11-13 20:08] VITALS: BP 112/56; TEMP 97.7; O2SAT 91
[2023-11-13] MEDS: LOSARTAN 50MG TABLET PO SCH (20:53)
[2023-11-13] MEDS: CETIRIZINE (ZyrTEC) 10 MG TAB PO SCH (20:54)
[2023-11-13] MEDS: PRAVASTATIN 20 MG TAB PO SCH (20:54)
[2023-11-13] MEDS: RAMELTEON 8 MG TAB (ROZEREM) PO SCH (20:54)
[2023-11-13] MEDS: AZELASTINE 137MCG NASAL SPY 30 ML (ASTELIN) SCH (20:55)
[2023-11-13] MEDS: CALCITONIN NASAL SPRAY 3.7ML BTL SCH (20:55)
[2023-11-14 04:06] VITALS: BP 114/84; TEMP 97.8; O2SAT 94
[2023-11-14] MEDS: DICYCLOMINE 10 MG CAP PO SCH ×3 (04:12→12:45)
[2023-11-14] MEDS: **hydrALAZINE HCL** 25 MG TAB PO SCH ×2 (04:13→12:42)
[2023-11-14 05:50] LABS: BASO % 0.2 % (0.0-1.0); EOS # 0.1 10^3/uL (0.0-0.5); EOS % 1.2 % (0.0-3.0); HEMATOCRIT 24.3 % (36.0-47.0); HEMOGLOBIN 7.6 g/dl (12.0-15.5); LYMPH # 0.9 10^3/uL (1.5-5.0); LYMPH % 20.8 % (24.0-44.0); MEAN CORPUSCULAR HEMOGLOBIN 28.3 pg (27.0-33.0); MEAN CORPUSCULAR HGB CONC 31.3 g/dl (32.0-36.5); MEAN CORPUSCULAR VOLUME 90.3 fl (80.0-96.0); MONO # 0.3 10^3/uL (0.0-0.8); MONO % 7.1 % (2.0-8.0); NEUTROPHILS # 2.9 10^3/uL (1.5-8.5); NEUTROPHILS % 69.3 % (36.0-66.0); PLATELET COUNT, AUTOMATED 148 10^3/uL (150-450); RED BLOOD COUNT 2.69 10^6/uL (4.00-5.40); WHITE BLOOD COUNT 4.2 10^3/uL (4.0-10.0)
[2023-11-14] MEDS ORDERED: LIDOCAINE 1% SDV 5ML VIAL SC PRN (06:00)
[2023-11-14] MEDS ORDERED: SODIUM CHLORIDE 0.9% 1000ML IV PRN (06:00)
[2023-11-14] MEDS ORDERED: HEPARIN 1,000UNITS/ML 10ML VIAL (FOR RADIOLOGY & DIALYSIS ONLY) XX SCH (06:00)
[2023-11-14] MEDS: ARTIFICIAL TEARS DROPS 15ML BTL (VISINE DRY RELIEF) OU SCH ×2 (06:01→12:47)
[2023-11-14] MEDS: LEVOTHYROXINE 100MCG TABLET (0.1MG) PO SCH (06:01)
[2023-11-14] MEDS: SODIUM CHLORIDE NASAL 0.65% SPRAY BTL (OCEAN) SCH (06:01)
[2023-11-14] MEDS: FLUTICASONE PROP 0.05% NASAL SPRAY 16 GM (FLONASE) NARES SCH (06:01)
[2023-11-14 06:04] LABS: CALCIUM LEVEL 7.5 MG/DL (8.3-10.6); CREATININE FOR GFR 7.22 MG/DL (0.55-1.30); GLOMERULAR FILTRATION RATE 5.9 (>39); MAGNESIUM LEVEL 1.9 MG/DL (1.8-2.4); POTASSIUM SERUM 3.4 MMOL/L (3.5-5.1)
[2023-11-14] MEDS: FLUTICASONE HFA 110MCG 12GM INHALER (FLOVENT) INH SCH (07:17)
[2023-11-14] MEDS: POTASSIUM CHLORIDE 10MEQ SR TABLET PO ONE ×2 (07:30→12:47)
[2023-11-14 07:33] VITALS: BP 117/58; TEMP 99.4; O2SAT 95
[2023-11-14] MEDS: ONDANSETRON 4MG TAB PO PRN (07:37)
[2023-11-14] MEDS ORDERED: TIOTROPIUM INHALER/CAPSULE (SPIRIVA) INH SCH (08:00)
[2023-11-14] MEDS: SIMETHICONE 80MG CHEW TAB PO SCH ×2 (09:00→12:44)
[2023-11-14] MEDS: guaiFENesin ER TABLET 600 MG TAB PO SCH (09:00)
[2023-11-14] MEDS: METOPROLOL TART 50 MG TAB PO SCH (09:00)
[2023-11-14] MEDS: METAMUCIL (PSYLLIUM) PACKET PO SCH (09:00)
[2023-11-14] MEDS: VITAMIN D 1,000 INTERNATIONAL UNITS TABLET PO SCH (09:00)
[2023-11-14] MEDS: PANTOPRAZOLE 40MG TAB (PROTONIX) PO SCH (09:00)
[2023-11-14] MEDS: LOMOTIL 2.5MG/0.025MG TABLET PO SCH (09:00)
[2023-11-14] MEDS: HEPARIN SOD (PORCINE) 5000UNITS/ML 1ML VIAL/SYRINGE SQ SCH (09:00)
[2023-11-14] MEDS: NEPHRO-VIT TAB (NEPHROCAPS) PO SCH (09:00)
[2023-11-14] MEDS: amLODIPine 5 MG TAB PO SCH (09:00)
[2023-11-14] MEDS ORDERED: ANOR1AER PO (10:07)
[2023-11-14 12:32] VITALS: BP 124/60; TEMP 98.6; O2SAT 96
[2023-11-14 12:42] VITALS: BP 124/60
[2023-11-14] MEDS: LOPERAMIDE 2 MG CAPLET PO PRN (12:42)
[2023-11-14] MEDS: ACETAMINOPHEN TAB 650MG DOSE (2X325MG) PO PRN (12:44)
== END 2023-11-14 14:24 | DRG 177 ==
LOC: M ED 09:47 → EDBD 09:47 → M ED INP 13:20 → M PCU 16:53
PROVIDERS: ADMIT Student in an Organized Health Care Education/Training Program; ATTEND Student in an Organized Health Care Education/Training Program
PROC: XW033E5 Introduction of Remdesivir Anti-infective into Peripheral Vein, Percutaneous Approach, New Technology Group 5 (ICD-10-PCS; principal; 2023-11-07)
PROC: 3E0333Z Introduction of Anti-inflammatory into Peripheral Vein, Percutaneous Approach (ICD-10-PCS; 2023-11-07)
PROC: 5A1D70Z Performance of Urinary Filtration, Intermittent, Less than 6 Hours Per Day (ICD-10-PCS; 2023-11-09)
PROC: B246ZZZ Ultrasonography of Right and Left Heart (ICD-10-PCS; 2023-11-13)
DX: U07.1 COVID-19 (principal); N18.6 End stage renal disease; J18.9 Pneumonia, unspecified organism; I12.0 Hypertensive chronic kidney disease with stage 5 chronic kidney disease or end stage renal disease; J44.1 Chronic obstructive pulmonary disease with (acute) exacerbation; J44.0 Chronic obstructive pulmonary disease with (acute) lower respiratory infection; J96.11 Chronic respiratory failure with hypoxia; E78.5 Hyperlipidemia, unspecified; K58.0 Irritable bowel syndrome with diarrhea; E87.6 Hypokalemia; K21.9 Gastro-esophageal reflux disease without esophagitis; G47.33 Obstructive sleep apnea (adult) (pediatric); J45.909 Unspecified asthma, uncomplicated; E03.9 Hypothyroidism, unspecified; E83.42 Hypomagnesemia; D69.6 Thrombocytopenia, unspecified; Z66 Do not resuscitate; Z79.890 Hormone replacement therapy; Z79.899 Other long term (current) drug therapy; Z88.6 Allergy status to analgesic agent; Z88.8 Allergy status to other drugs, medicaments and biological substances; Z91.048 Other nonmedicinal substance allergy status; Z99.2 Dependence on renal dialysis; D63.1 Anemia in chronic kidney disease; Z90.49 Acquired absence of other specified parts of digestive tract; Z90.79 Acquired absence of other genital organ(s); Z87.891 Personal history of nicotine dependence

== ENCOUNTER → 2023-11-22 | Outpatient (REF) | payer MEDICARE, MEDICAID ==
[~2023-11-22] MED LIST changes: +ALBU8.5H INH; +ANOR1AER PO; +ANTI2TAB16 PO; +GNP10TAB20 PO; +GUAI100S51 PO; +GUAISYP5 PO; +MIRA1POW3 PO; +ONDA-195 PO; +PROC1CRE5 PR; +SYST0.6S OU; +[UNRECOGNIZED DRUG - CODE] PO
== END ==
LOC: M SFHCPLAZ 12:54
PROVIDERS: ATTEND Family Medicine
DX: E89.0 Postprocedural hypothyroidism (principal)

== ENCOUNTER 2023-11-27 07:38 | Outpatient (CLI) | payer MEDICARE, MEDICAID ==
[2023-11-27 07:38] VITALS: BP 152/72; O2SAT 97
[2023-11-27] MEDS: SODIUM CHLORIDE 0.9% INJ 10 ML SYR IV SCH (07:45)
[2023-11-27 07:55] VITALS: BP 157/69; O2SAT 97
== END 2023-11-27 07:55 ==
LOC: M INFU 07:38
PROVIDERS: ATTEND Family Medicine
DX: M31.30 Wegener's granulomatosis without renal involvement (principal); Z88.8 Allergy status to other drugs, medicaments and biological substances

== ENCOUNTER 2023-12-27 13:14 | Outpatient (CLI) | payer MEDICARE, MEDICAID ==
[~2023-12-27 13:14] MED LIST changes: -HYDR-3910 PO; +HYDR25TA87 PO; -MIRA1POW3 PO; +MIRA33506 PO
[2023-12-27] MEDS: SODIUM CHLORIDE 0.9% INJ 10 ML SYR IV SCH (13:53)
[2023-12-27 14:00] VITALS: BP 166/69; O2SAT 96
== END 2023-12-27 14:00 | disposition home or self-care (01) ==
LOC: M INFU 13:14
PROVIDERS: ATTEND Family Medicine
DX: M31.30 Wegener's granulomatosis without renal involvement (principal); Z88.8 Allergy status to other drugs, medicaments and biological substances

== ENCOUNTER 2024-01-29 07:45 | Outpatient (CLI) | payer MEDICARE, MEDICAID ==
[~2024-01-29] VITALS: Ht 167.6 cm; Wt 62.9 kg
[2024-01-29 07:45] VITALS: BP 172/72; O2SAT 97
[2024-01-29] MEDS: SODIUM CHLORIDE 0.9% INJ 10 ML SYR IV SCH (07:58)
== END 2024-01-29 08:05 | disposition home or self-care (01) ==
LOC: M INFU 07:45
PROVIDERS: ATTEND Family Medicine
DX: M31.30 Wegener's granulomatosis without renal involvement (principal); Z88.8 Allergy status to other drugs, medicaments and biological substances

== ENCOUNTER 2024-02-21 06:34 | Inpatient (IN) | payer MEDICARE, MEDICAID ==
[~2024-02-21] VITALS: Ht 157.5 cm; Wt 60.8 kg
[2024-02-21] MEDS: FORMOTEROL FUMARATE 20 MCG/2 ML INHALATION SOLUTION (PERFOROMIST) INH SCH (08:00)
[2024-02-21] MEDS: BUDESONIDE 0.5 MG/2 ML INHALATION SUSPENSION NEB SCH (08:00)
[2024-02-21] MEDS: ACETAMINOPHEN 500 MG TAB PO ONE (08:00)
[2024-02-21] MEDS: NS 1,000 ML IV SCH (08:02)
[2024-02-21 08:09] LABS: BASO % 0.2 % (0.0-1.0); EOS % 0.1 % (0.0-3.0); HEMATOCRIT 28.4 % (36.0-47.0); HEMOGLOBIN 8.9 g/dl (12.0-15.5); LYMPH # 0.5 10^3/uL (1.5-5.0); LYMPH % 5.2 % (24.0-44.0); MEAN CORPUSCULAR HEMOGLOBIN 28.8 pg (27.0-33.0); MEAN CORPUSCULAR HGB CONC 31.3 g/dl (32.0-36.5); MEAN CORPUSCULAR VOLUME 91.9 fl (80.0-96.0); MONO # 0.8 10^3/uL (0.0-0.8); MONO % 7.8 % (2.0-8.0); NEUTROPHILS # 8.8 10^3/uL (1.5-8.5); NEUTROPHILS % 86.3 % (36.0-66.0); PLATELET COUNT, AUTOMATED 122 10^3/uL (150-450); RED BLOOD COUNT 3.09 10^6/uL (4.00-5.40); WHITE BLOOD COUNT 10.2 10^3/uL (4.0-10.0)
[2024-02-21 08:37] LABS: LIPASE 47 U/L (12-53)
[2024-02-21 08:40] LABS: ALBUMIN 2.8 G/DL (3.2-5.2); ALKALINE PHOSPHATASE 74 U/L (46-116); ALT/SGPT 14 U/L (7.0-40); AST/SGOT 15 U/L (<34); BILIRUBIN,DIRECT < 0.1 MG/DL (<0.4); BILIRUBIN,TOTAL 0.2 MG/DL (0.3-1.2); BLOOD UREA NITROGEN 22 MG/DL (9-23); CALCIUM LEVEL 8.8 MG/DL (8.3-10.6); CARBON DIOXIDE LEVEL 28 MMOL/L (20-31); CHLORIDE LEVEL 100 MMOL/L (98-107); CREATININE FOR GFR 5.44 MG/DL (0.55-1.30); GLOMERULAR FILTRATION RATE 8.2 (>39); GLUCOSE, FASTING 86 MG/DL (74-106); POTASSIUM SERUM 4.9 MMOL/L (3.5-5.1); SODIUM LEVEL 140 MMOL/L (136-145); TOTAL PROTEIN 5.2 G/DL (5.7-8.2)
[2024-02-21] MEDS: MIRALAX *UNIT DOSE* 17GM PACKET PO SCH (09:00)
[2024-02-21] MEDS: DOXYCYCLINE HYCLATE 100MG TABLET PO SCH (09:00)
[2024-02-21] MEDS ORDERED: XALA0.007 OU (10:10)
[2024-02-21] MEDS: IPRATROPIUM 0.5MG/ALBUTEROL 2.5MG INH SOL UD 3ML (DUONEB) NEB PRN (10:29)
[2024-02-21] MEDS ORDERED: DICY20TA3 PO (10:29)
[2024-02-21] MEDS ORDERED: GUAIDM5UD PO (10:32)
[2024-02-21] MEDS: methylPREDNISolone 125MG 2ML VIAL IV ONE (10:33)
[2024-02-21] MEDS: LIDOCAINE 5% (LIDODERM) PATCH TD ONE (10:34)
[2024-02-21] MEDS: cefTRIAXone SOD 1 GM in D5W MINI-BAG PLUS 50 ML IV ONE (10:34)
[2024-02-21] MEDS ORDERED: FLUT12AE2 INH (10:37)
[2024-02-21 10:41] LABS: VENOUS BASE EXCESS -0.9 (-2.0-2.0); VENOUS HCO3 24.2 MMOL/L (23.0-27.0); VENOUS O2 SATURATION 89.2 % (60.0-80.0); VENOUS PARTIAL PRESSURE CO2 41.6 mmHg (38.0-50.0); VENOUS PARTIAL PRESSURE O2 55.8 mmHg (30.0-50.0); VENOUS PH 7.382 UNITS (7.330-7.430); VENOUS STANDARD HCO3 23.6 MMOL/L; VENOUS TOTAL CO2 25.4 MMOL/L (24.0-28.0)
[2024-02-21] MEDS ORDERED: HOME MED LIST COMPLETE! XX SCH (10:45)
[2024-02-21] MEDS: MORPHINE 2 MG/ML 1ML VIAL IV PRN (11:18)
[2024-02-21] MEDS: IPRATROPIUM 0.5MG/ALBUTEROL 2.5MG INH SOL UD 3ML (DUONEB) NEB SCH (12:00)
[2024-02-21] MEDS ORDERED: guaiFENesin DM LIQ 10ML UD PO PRN (13:00)
[2024-02-21 13:31] LABS: PROCALCITONIN 6.91 ng/ml
[2024-02-21 15:00] VITALS: BP 140/64; TEMP 101.7; O2SAT 89
[2024-02-21] MEDS: KETOROLAC 30 MG/ML 1ML VIAL IV ONE (15:32)
[2024-02-21] MEDS: PANTOPRAZOLE 40MG TAB (PROTONIX) PO SCH (15:32)
[2024-02-21 16:00] VITALS: TEMP 101.9
[2024-02-21] MEDS: ACETAMINOPHEN TAB 650MG DOSE (2X325MG) PO PRN (16:22)
[2024-02-21 17:30] VITALS: TEMP 99
[2024-02-21 20:52] VITALS: BP 118/54; TEMP 96.1; O2SAT 99
[2024-02-21 21:00] VITALS: TEMP 97.5
[2024-02-21] MEDS: METOPROLOL TART 50 MG TAB PO SCH (21:11)
[2024-02-21] MEDS: methylPREDNISolone 40MG 1ML VIAL IV SCH (21:11)
[2024-02-21] MEDS: PRAVASTATIN 20 MG TAB PO SCH (21:11)
[2024-02-21] MEDS: amLODIPine 5 MG TAB PO SCH (21:11)
[2024-02-21] MEDS: guaiFENesin ER TABLET 600 MG TAB PO SCH (21:11)
[2024-02-21] MEDS: LATANOPROST 0.005% OPHTH SOLN 2.5 ML OU SCH (21:11)
[2024-02-22 00:12] VITALS: BP 108/43; TEMP 95.1; O2SAT 97
[2024-02-22 02:09] VITALS: TEMP 95.5; TEMP 96.6
[2024-02-22] MEDS: NS 500 ML IV ONE (02:45)
[2024-02-22 06:00] VITALS: BP 131/62; TEMP 96.4; O2SAT 96
[2024-02-22] MEDS ORDERED: SODIUM CHLORIDE 0.9% 1000ML IV PRN (06:00)
[2024-02-22] MEDS ORDERED: HEPARIN 1,000UNITS/ML 10ML VIAL (FOR RADIOLOGY & DIALYSIS ONLY) IV PRN (06:00)
[2024-02-22] MEDS ORDERED: HEPARIN 1,000UNITS/ML 10ML VIAL (FOR RADIOLOGY & DIALYSIS ONLY) XX SCH (06:00)
[2024-02-22] MEDS: LEVOTHYROXINE 100MCG TABLET (0.1MG) PO SCH (06:07)
[2024-02-22 07:37] LABS: PROCALCITONIN 38.66 ng/ml
[2024-02-22 07:38] LABS: CALCIUM LEVEL 8.7 MG/DL (8.3-10.6); CREATININE FOR GFR 6.92 MG/DL (0.55-1.30); GLOMERULAR FILTRATION RATE 6.2 (>39); POTASSIUM SERUM 4.8 MMOL/L (3.5-5.1)
[2024-02-22] MEDS: DARBEPOETIN 200MCG/0.4ML *DIALYSIS* SYRINGE IV SCH (12:01)
[2024-02-22] MEDS: LACTOBACILLUS ACIDOPHILUS CAP (BACID) PO SCH (13:23)
[2024-02-22] MEDS: cefTRIAXone SOD 2 GM in D5W MINI-BAG PLUS 50 ML IV SCH (13:23)
[2024-02-22] MEDS: VANCOMYCIN 125MG CAPSULE PO SCH (13:24)
[2024-02-22 14:00] VITALS: BP 111/50; TEMP 99.6; O2SAT 97
[2024-02-22 20:00] VITALS: BP 115/61; TEMP 98.2; O2SAT 94
[2024-02-23 06:00] VITALS: BP 131/65; TEMP 97.1; O2SAT 90
[2024-02-23 06:02] LABS: BASO % 0.1 % (0.0-1.0); HEMATOCRIT 29.7 % (36.0-47.0); HEMOGLOBIN 9.2 g/dl (12.0-15.5); LYMPH # 0.4 10^3/uL (1.5-5.0); LYMPH % 3.2 % (24.0-44.0); MEAN CORPUSCULAR HEMOGLOBIN 28.5 pg (27.0-33.0); MONO # 0.3 10^3/uL (0.0-0.8); MONO % 3.1 % (2.0-8.0); NEUTROPHILS # 10.3 10^3/uL (1.5-8.5); NEUTROPHILS % 93.1 % (36.0-66.0); PLATELET COUNT, AUTOMATED 150 10^3/uL (150-450); RED BLOOD COUNT 3.23 10^6/uL (4.00-5.40); WHITE BLOOD COUNT 11.1 10^3/uL (4.0-10.0)
[2024-02-23 06:36] LABS: CALCIUM LEVEL 8.8 MG/DL (8.3-10.6); CREATININE FOR GFR 4.56 MG/DL (0.55-1.30); POTASSIUM SERUM 4.5 MMOL/L (3.5-5.1)
[2024-02-23 14:00] VITALS: BP 122/60; TEMP 98.1; O2SAT 94
[2024-02-23] MEDS: DICYCLOMINE 10 MG CAP PO SCH (14:19)
[2024-02-23] MEDS: LOPERAMIDE 2 MG CAPLET PO PRN (16:27)
[2024-02-23 20:00] VITALS: BP 130/62; TEMP 97.5; O2SAT 94
[2024-02-24 05:38] LABS: BASO % 0.2 % (0.0-1.0); EOS % 0.1 % (0.0-3.0); HEMOGLOBIN 9.1 g/dl (12.0-15.5); LYMPH # 0.7 10^3/uL (1.5-5.0); LYMPH % 5.4 % (24.0-44.0); MEAN CORPUSCULAR HEMOGLOBIN 29.3 pg (27.0-33.0); MEAN CORPUSCULAR HGB CONC 32.5 g/dl (32.0-36.5); MONO # 0.7 10^3/uL (0.0-0.8); MONO % 5.5 % (2.0-8.0); NEUTROPHILS # 11.6 10^3/uL (1.5-8.5); NEUTROPHILS % 88.2 % (36.0-66.0); PLATELET COUNT, AUTOMATED 175 10^3/uL (150-450); RED BLOOD COUNT 3.11 10^6/uL (4.00-5.40); WHITE BLOOD COUNT 13.2 10^3/uL (4.0-10.0)
[2024-02-24 06:00] VITALS: BP 139/72; TEMP 97.6; O2SAT 98
[2024-02-24 06:22] LABS: PROCALCITONIN 36.79 ng/ml
[2024-02-24 06:26] LABS: CALCIUM LEVEL 8.3 MG/DL (8.3-10.6); CREATININE FOR GFR 6.51 MG/DL (0.55-1.30); GLOMERULAR FILTRATION RATE 6.7 (>39); POTASSIUM SERUM 4.2 MMOL/L (3.5-5.1)
[2024-02-24] MEDS: methylPREDNISolone 40MG 1ML VIAL IV SCH (09:28)
[2024-02-24] MEDS: VANCOMYCIN 125MG CAPSULE PO SCH (09:28)
[2024-02-24 14:00] VITALS: BP 133/64; TEMP 98.2; O2SAT 90
[2024-02-24 21:00] VITALS: BP 121/63; TEMP 98.8; O2SAT 93
[2024-02-25] MEDS ORDERED: HEPARIN 1,000UNITS/ML 10ML VIAL (FOR RADIOLOGY & DIALYSIS ONLY) IV PRN (04:45)
[2024-02-25] MEDS ORDERED: HEPARIN 1,000UNITS/ML 10ML VIAL (FOR RADIOLOGY & DIALYSIS ONLY) XX SCH (04:45)
[2024-02-25] MEDS ORDERED: SODIUM CHLORIDE 0.9% 1000ML IV PRN (04:45)
[2024-02-25] MEDS ORDERED: LIDOCAINE 1% SDV 5ML VIAL SC PRN (04:45)
[2024-02-25 07:15] LABS: BASO % 0.1 % (0.0-1.0); EOS # 0.1 10^3/uL (0.0-0.5); EOS % 0.3 % (0.0-3.0); HEMATOCRIT 30.2 % (36.0-47.0); HEMOGLOBIN 9.7 g/dl (12.0-15.5); LYMPH % 7.1 % (24.0-44.0); MEAN CORPUSCULAR HGB CONC 32.1 g/dl (32.0-36.5); MEAN CORPUSCULAR VOLUME 90.1 fl (80.0-96.0); MONO % 6.6 % (2.0-8.0); NEUTROPHILS # 12.4 10^3/uL (1.5-8.5); NEUTROPHILS % 84.1 % (36.0-66.0); PLATELET COUNT, AUTOMATED 224 10^3/uL (150-450); RED BLOOD COUNT 3.35 10^6/uL (4.00-5.40); WHITE BLOOD COUNT 14.7 10^3/uL (4.0-10.0)
[2024-02-25 07:50] LABS: CREATININE FOR GFR 8.2 MG/DL (0.55-1.30); GLOMERULAR FILTRATION RATE 5.1 (>39)
[2024-02-25] MEDS: CEFDINIR 300 MG CAP (OMNICEF) PO ONE (07:59)
[2024-02-25] MEDS: predniSONE 10MG TAB PO SCH (07:59)
[2024-02-25 16:05] VITALS: BP 142/65; TEMP 98.6; O2SAT 94
[2024-02-25] MEDS: CEFDINIR 300 MG CAP (OMNICEF) PO SCH (16:12)
[2024-02-25 20:53] VITALS: BP 127/63; TEMP 97.3; O2SAT 92
[2024-02-26 06:12] VITALS: BP 168/77; TEMP 98.1; O2SAT 96
[2024-02-26] MEDS ORDERED: DOXY100T PO (07:19)
[2024-02-26] MEDS ORDERED: VANC1CAP6 PO (07:19)
[2024-02-26] MEDS ORDERED: CEFD300CAP PO (07:19)
[2024-02-26] MEDS ORDERED: PRED10TA2 PO (07:19)
[2024-02-26 08:00] VITALS: BP 168/77
== END 2024-02-26 08:25 | DRG 871 ==
LOC: M ED 06:34 → M ED INP 12:40 → M MSPAV 14:58
PROVIDERS: ADMIT Internal Medicine Nephrology; ATTEND Internal Medicine Nephrology
PROC: 5A1D70Z Performance of Urinary Filtration, Intermittent, Less than 6 Hours Per Day (ICD-10-PCS; principal; 2024-02-22)
DX: A41.9 Sepsis, unspecified organism (principal); N18.6 End stage renal disease; J18.9 Pneumonia, unspecified organism; J96.11 Chronic respiratory failure with hypoxia; I50.32 Chronic diastolic (congestive) heart failure; I13.2 Hypertensive heart and chronic kidney disease with heart failure and with stage 5 chronic kidney disease, or end stage renal disease; N25.81 Secondary hyperparathyroidism of renal origin; J44.1 Chronic obstructive pulmonary disease with (acute) exacerbation; D61.818 Other pancytopenia; M31.0 Hypersensitivity angiitis; G83.4 Cauda equina syndrome; J44.0 Chronic obstructive pulmonary disease with (acute) lower respiratory infection; G47.33 Obstructive sleep apnea (adult) (pediatric); R07.89 Other chest pain; R19.7 Diarrhea, unspecified; R91.8 Other nonspecific abnormal finding of lung field; E78.5 Hyperlipidemia, unspecified; K58.9 Irritable bowel syndrome, unspecified; K21.9 Gastro-esophageal reflux disease without esophagitis; D63.8 Anemia in other chronic diseases classified elsewhere; M81.0 Age-related osteoporosis without current pathological fracture; Z86.718 Personal history of other venous thrombosis and embolism; Z86.16 Personal history of COVID-19; Z90.49 Acquired absence of other specified parts of digestive tract; Z87.891 Personal history of nicotine dependence; Z79.890 Hormone replacement therapy; Z79.899 Other long term (current) drug therapy; Z88.6 Allergy status to analgesic agent; Z88.8 Allergy status to other drugs, medicaments and biological substances; Z99.81 Dependence on supplemental oxygen; Z91.048 Other nonmedicinal substance allergy status; Z99.2 Dependence on renal dialysis; Z66 Do not resuscitate

== ENCOUNTER 2024-02-28 08:35 | Outpatient (CLI) | payer MEDICARE, MEDICAID ==
[2024-02-28 08:35] VITALS: BP 138/65; O2SAT 100
[~2024-02-28 08:35] MED LIST changes: +CEFD300CAP PO; +DOXY100T PO; +FLUT12AE2 INH; +VANC1CAP6 PO; +XALA0.007 OU
[2024-02-28] MEDS: SODIUM CHLORIDE 0.9% INJ 10 ML SYR IV SCH (08:39)
== END 2024-02-28 08:45 | disposition home or self-care (01) ==
LOC: M INFU 08:35
PROVIDERS: ATTEND Family Medicine
DX: M31.30 Wegener's granulomatosis without renal involvement (principal); Z88.6 Allergy status to analgesic agent; Z88.8 Allergy status to other drugs, medicaments and biological substances; Z91.048 Other nonmedicinal substance allergy status

== ENCOUNTER → 2024-03-07 | Outpatient (REF) | payer MEDICARE ==
[2024-03-07 21:24] LABS: CLOSTRIDIUM DIFFICILE PCR NEGATIVE (NEGATIVE)
== END ==
LOC: M LAB REF 20:21
PROVIDERS: ATTEND Family Medicine
DX: R19.7 Diarrhea, unspecified (principal)

== ENCOUNTER 2024-03-13 06:30 | Outpatient (CLI) | payer MEDICARE, MEDICAID ==
[~2024-03-13] VITALS: Ht 157.5 cm; Wt 62.6 kg
[2024-03-13 07:15] VITALS: BP 149/68; O2SAT 98
[2024-03-13] MEDS: IMMUNE GLOBULIN 10% 20 GM in IV 1 EA IV ONE (07:43)
[2024-03-13] MEDS: IMMUNE GLOBULIN 10% 5 GM in IV 1 EA IV ONE (07:47)
[2024-03-13 08:15] VITALS: BP 121/57; O2SAT 97
[2024-03-13 09:45] VITALS: BP 131/61; O2SAT 97
[2024-03-13 10:45] VITALS: BP 139/64; O2SAT 97
[2024-03-13 11:45] VITALS: BP 127/59; O2SAT 98
[2024-03-13 13:00] VITALS: BP 138/63; O2SAT 97
[2024-03-13] MEDS ORDERED: SODIUM CHLORIDE 0.9% INJ 10 ML SYR IV PRN (13:05)
[2024-03-13] MEDS: SODIUM CHLORIDE 0.9% INJ 10 ML SYR IV SCH (13:14)
== END 2024-03-13 13:05 | disposition home or self-care (01) ==
LOC: M INFU 06:30
PROVIDERS: ATTEND Internal Medicine Pulmonary Disease
DX: D84.821 Immunodeficiency due to drugs (principal); T45.1X5A Adverse effect of antineoplastic and immunosuppressive drugs, initial encounter; D83.8 Other common variable immunodeficiencies
CPT/HCPCS: 96365; 96366; J1459

== ENCOUNTER 2024-03-17 09:07 | Inpatient (IN) | payer MEDICARE, MEDICAID ==
[~2024-03-17] VITALS: Ht 157.5 cm; Wt 60.9 kg
[2024-03-17 10:19] LABS: EOS # 0.2 10^3/uL (0.0-0.5); EOS % 5.3 % (0.0-3.0); HEMATOCRIT 29.1 % (36.0-47.0); LYMPH # 0.7 10^3/uL (1.5-5.0); MEAN CORPUSCULAR HEMOGLOBIN 28.1 pg (27.0-33.0); MEAN CORPUSCULAR HGB CONC 30.9 g/dl (32.0-36.5); MEAN CORPUSCULAR VOLUME 90.9 fl (80.0-96.0); MONO # 0.4 10^3/uL (0.0-0.8); NEUTROPHILS # 1.7 10^3/uL (1.5-8.5); NEUTROPHILS % 56.7 % (36.0-66.0); PLATELET COUNT, AUTOMATED 158 10^3/uL (150-450)
[2024-03-17 10:22] LABS: LIPASE 26 U/L (12-53)
[2024-03-17 10:23] LABS: CPK CREATINE PHOSPHOKINASE 47 U/L (34-145)
[2024-03-17 10:24] LABS: ALBUMIN 2.7 G/DL (3.2-5.2); ALKALINE PHOSPHATASE 75 U/L (46-116); ALT/SGPT 15 U/L (7.0-40); AST/SGOT 14 U/L (<34); BILIRUBIN,DIRECT 0.1 MG/DL (<0.4); BILIRUBIN,TOTAL 0.3 MG/DL (0.3-1.2); BLOOD UREA NITROGEN 9 MG/DL (9-23); CALCIUM LEVEL 9.3 MG/DL (8.3-10.6); CARBON DIOXIDE LEVEL 34 MMOL/L (20-31); CHLORIDE LEVEL 101 MMOL/L (98-107); CK-MB VALUE MASS < 1.0 NG/ML (<3.6); CREATININE FOR GFR 3.46 MG/DL (0.55-1.30); GLOMERULAR FILTRATION RATE 13.8 (>39); GLUCOSE, FASTING 91 MG/DL (74-106); MB/CK RELATIVE INDEX 2.12 (< OR =4); POTASSIUM SERUM 3.8 MMOL/L (3.5-5.1); SODIUM LEVEL 140 MMOL/L (136-145); TOTAL PROTEIN 5.7 G/DL (5.7-8.2)
[2024-03-17 10:26] LABS: ERYTHROCYTE SEDIMENTATION RATE 90 mm/hr (0-30)
[2024-03-17 10:28] LABS: THYROID STIMULATING HORMONE 4.469 uIU/ML (0.55-4.78)
[2024-03-17 10:31] LABS: VENOUS PH 7.475 UNITS (7.330-7.430)
[2024-03-17 10:32] LABS: VENOUS BASE EXCESS 7.1 (-2.0-2.0); VENOUS HCO3 31.4 MMOL/L (23.0-27.0); VENOUS O2 SATURATION 87.1 % (60.0-80.0); VENOUS PARTIAL PRESSURE CO2 43.6 mmHg (38.0-50.0); VENOUS PARTIAL PRESSURE O2 49.5 mmHg (30.0-50.0); VENOUS STANDARD HCO3 30.8 MMOL/L; VENOUS TOTAL CO2 32.7 MMOL/L (24.0-28.0)
[2024-03-17 10:36] LABS: INR 1.03; PROTHROMBIN TIME 13.2 SECONDS (12.5-14.5)
[2024-03-17 11:14] LABS: CK-MB VALUE MASS < 1.0 NG/ML (<3.6)
[2024-03-17 11:16] LABS: CPK CREATINE PHOSPHOKINASE 41 U/L (34-145); MB/CK RELATIVE INDEX 2.43 (< OR =4)
[2024-03-17] MEDS ORDERED: MAALOX 30 ML SUSP *UDC PO PRN (15:55)
[2024-03-17] MEDS ORDERED: MOM 30ML SUSPENSION UDC PO PRN (15:55)
[2024-03-17 17:12] VITALS: BP 146/72; O2SAT 97
[2024-03-17 17:31] VITALS: TEMP 101.4
[2024-03-17] MEDS: ACETAMINOPHEN TAB 650MG DOSE (2X325MG) PO PRN (17:32)
[2024-03-17 18:51] VITALS: TEMP 100.5
[2024-03-17] MEDS: NS 1,000 ML IV ONE (19:10)
[2024-03-17] MEDS: LACTOBACILLUS ACIDOPHILUS CAP (BACID) PO SCH (19:11)
[2024-03-17] MEDS: HEPARIN SOD (PORCINE) 5000UNITS/ML 1ML VIAL/SYRINGE SC SCH (20:06)
[2024-03-17 20:20] VITALS: O2SAT 95
[2024-03-17] MEDS ORDERED: CALC200S NARES (21:50)
[2024-03-17] MEDS ORDERED: LEVO1TAB39 PO (21:50)
[2024-03-17] MEDS ORDERED: HOME MED LIST COMPLETE! XX SCH ×2 (21:55→23:05)
[2024-03-17 22:00] VITALS: BP 143/62; TEMP 99.9; O2SAT 96
[2024-03-17] MEDS: VANCOMYCIN HCL 1,000 MG, VIAL MATE ADAPTER 1 EACH in D5W 250 ML IV SCH (22:03)
[2024-03-17] MEDS ORDERED: NYST-38 PO (22:54)
[2024-03-17] MEDS ORDERED: DICY20TA20 PO (22:54)
[2024-03-17] MEDS ORDERED: VANC250C3 PO (22:54)
[2024-03-17] MEDS ORDERED: RA S0.65 NARES (22:54)
[2024-03-18] VITALS (7 sets, daily range): BP systolic 143–165; BP diastolic 63–89; TEMP 98.6–101.7; O2SAT 93–100
[2024-03-18 07:09] LABS: BASO % 0.7 % (0.0-1.0); EOS # 0.2 10^3/uL (0.0-0.5); EOS % 7.8 % (0.0-3.0); HEMATOCRIT 26.8 % (36.0-47.0); HEMOGLOBIN 8.2 g/dl (12.0-15.5); LYMPH # 0.7 10^3/uL (1.5-5.0); LYMPH % 27.6 % (24.0-44.0); MEAN CORPUSCULAR HEMOGLOBIN 28.7 pg (27.0-33.0); MEAN CORPUSCULAR HGB CONC 30.6 g/dl (32.0-36.5); MEAN CORPUSCULAR VOLUME 93.7 fl (80.0-96.0); MONO # 0.4 10^3/uL (0.0-0.8); MONO % 13.4 % (2.0-8.0); NEUTROPHILS # 1.3 10^3/uL (1.5-8.5); NEUTROPHILS % 50.1 % (36.0-66.0); PLATELET COUNT, AUTOMATED 147 10^3/uL (150-450); RED BLOOD COUNT 2.86 10^6/uL (4.00-5.40); WHITE BLOOD COUNT 2.7 10^3/uL (4.0-10.0)
[2024-03-18 07:51] LABS: VANCOMYCIN RANDOM 15.9 UG/ML
[2024-03-18] MEDS: VANCOMYCIN 125MG CAPSULE PO SCH (08:00)
[2024-03-18] MEDS: SODIUM CHLORIDE 0.9% INJ 10 ML SYR IV SCH (08:01)
[2024-03-18 08:16] LABS: ALBUMIN 2.3 G/DL (3.2-5.2); ALKALINE PHOSPHATASE 65 U/L (46-116); ALT/SGPT 11 U/L (7.0-40); AST/SGOT 9 U/L (<34); BILIRUBIN,TOTAL 0.3 MG/DL (0.3-1.2); BLOOD UREA NITROGEN 15 MG/DL (9-23); CALCIUM LEVEL 8.3 MG/DL (8.3-10.6); CARBON DIOXIDE LEVEL 31 MMOL/L (20-31); CHLORIDE LEVEL 102 MMOL/L (98-107); CREATININE FOR GFR 5.61 MG/DL (0.55-1.30); GLOMERULAR FILTRATION RATE 7.9 (>39); GLUCOSE, FASTING 80 MG/DL (74-106); MAGNESIUM LEVEL 1.6 MG/DL (1.8-2.4); POTASSIUM SERUM 5.2 MMOL/L (3.5-5.1); SODIUM LEVEL 138 MMOL/L (136-145); TOTAL PROTEIN 4.9 G/DL (5.7-8.2)
[2024-03-18] MEDS: DICYCLOMINE 10 MG CAP PO SCH (10:17)
[2024-03-18] MEDS: guaiFENesin ER TABLET 600 MG TAB PO SCH (10:17)
[2024-03-18] MEDS ORDERED: MAGIC MOUTHWASH 5ML ORAL SYRINGE SS PRN (10:35)
[2024-03-18] MEDS ORDERED: ALBUTEROL 90 MCG/ACT 8GM HFA INHALER INH PRN (11:40)
[2024-03-18] MEDS ORDERED: SOD POLYSTYRENE SULFONATE SUSP 15GM 60ML UD PO PRN (11:40)
[2024-03-18] MEDS ORDERED: ALBUTEROL SULFATE 2.5MG/0.5ML INH NEB SOLN INH PRN (11:40)
[2024-03-18] MEDS ORDERED: CALCIUM CARBONATE 500 MG CHEW U/D PO PRN (11:40)
[2024-03-18] MEDS ORDERED: ISOVUE-370 76% 100ML VIAL As Ordered ONE (11:40)
[2024-03-18] MEDS ORDERED: DOCUSATE SODIUM 100MG CAPSULE PO PRN (11:40)
[2024-03-18] MEDS ORDERED: CALC20SPR (12:41)
[2024-03-18] MEDS: NYSTATIN 500,000U/5ML SUSP UDC PO SCH (12:48)
[2024-03-18] MEDS: PATIROMER SORBITEX CALCIUM 8.4 GM POWDER PACKET (VELTASSA) PO ONE (12:55)
[2024-03-18] MEDS: VANCOMYCIN HCL 500 MG in D5W MINI-BAG PLUS 100 ML IV ONE (14:10)
[2024-03-18] MEDS: ONDANSETRON 4MG TAB PO PRN (14:12)
[2024-03-18] MEDS ORDERED: SODIUM CHLORIDE NASAL 0.65% SPRAY BTL (OCEAN) SCH (16:00)
[2024-03-18] MEDS ORDERED: VANCOMYCIN HCL 1,000 MG, VIAL MATE ADAPTER 1 EACH in D5W 250 ML IV SCH (16:00)
[2024-03-18 16:14] LABS: IMMUNOGLOBULIN A 36.1 MG/DL (40-350); IMMUNOGLOBULIN G 550 MG/DL (650-1600)
[2024-03-18] MEDS: **hydrALAZINE** 50 MG TAB PO SCH (16:39)
[2024-03-18] MEDS: SODIUM CHLORIDE NASAL 0.65% SPRAY BTL (OCEAN) SCH (16:42)
[2024-03-18] MEDS: SODIUM CHLORIDE 0.9% INJ 10 ML SYR IV PRN (18:26)
[2024-03-18] MEDS: FLUTICASONE HFA 110MCG 12GM INHALER (FLOVENT) INH SCH (20:07)
[2024-03-18] MEDS: AZELASTINE 137MCG NASAL SPY 30 ML (ASTELIN) SCH (20:17)
[2024-03-18] MEDS: LATANOPROST 0.005% OPHTH SOLN 2.5 ML OU SCH (20:18)
[2024-03-18] MEDS: amLODIPine 5 MG TAB PO SCH (20:21)
[2024-03-18] MEDS: METOPROLOL TART 50 MG TAB PO SCH (20:21)
[2024-03-18] MEDS: CETIRIZINE (ZyrTEC) 10 MG TAB PO SCH (20:21)
[2024-03-18] MEDS: LOSARTAN 50MG TABLET PO SCH (20:22)
[2024-03-19] MEDS: LEVOTHYROXINE 100MCG TABLET (0.1MG) PO SCH (05:02)
[2024-03-19 05:26] LABS: BASO % 0.7 % (0.0-1.0); EOS # 0.2 10^3/uL (0.0-0.5); EOS % 7.6 % (0.0-3.0); HEMATOCRIT 24.3 % (36.0-47.0); HEMOGLOBIN 7.6 g/dl (12.0-15.5); LYMPH % 34.7 % (24.0-44.0); MEAN CORPUSCULAR HEMOGLOBIN 28.5 pg (27.0-33.0); MEAN CORPUSCULAR HGB CONC 31.3 g/dl (32.0-36.5); MONO # 0.3 10^3/uL (0.0-0.8); MONO % 12.3 % (2.0-8.0); NEUTROPHILS # 1.2 10^3/uL (1.5-8.5); NEUTROPHILS % 44.3 % (36.0-66.0); PLATELET COUNT, AUTOMATED 162 10^3/uL (150-450); RED BLOOD COUNT 2.67 10^6/uL (4.00-5.40); WHITE BLOOD COUNT 2.8 10^3/uL (4.0-10.0)
[2024-03-19 06:00] VITALS: BP 143/69; TEMP 100; O2SAT 92
[2024-03-19] MEDS ORDERED: SODIUM CHLORIDE 0.9% 1000ML IV PRN (06:00)
[2024-03-19] MEDS ORDERED: HEPARIN 1,000UNITS/ML 10ML VIAL (FOR RADIOLOGY & DIALYSIS ONLY) IV PRN (06:00)
[2024-03-19] MEDS ORDERED: LIDOCAINE 1% SDV 5ML VIAL SC PRN (06:00)
[2024-03-19 06:02] LABS: C REACTIVE PROTEIN QUANTITATIV 11.5 MG/DL (<1.0); VANCOMYCIN RANDOM 13.7 UG/ML
[2024-03-19 06:03] LABS: CREATININE FOR GFR 7.25 MG/DL (0.55-1.30); GLOMERULAR FILTRATION RATE 5.9 (>39); MAGNESIUM LEVEL 1.6 MG/DL (1.8-2.4)
[2024-03-19] MEDS: LOPERAMIDE 2 MG CAPLET PO PRN (08:08)
[2024-03-19] MEDS: VITAMIN D 1,000 INTERNATIONAL UNITS TABLET PO SCH (08:08)
[2024-03-19] MEDS: PANTOPRAZOLE 40MG TAB (PROTONIX) PO SCH (08:09)
[2024-03-19] MEDS: **hydrALAZINE HCL** 25 MG TAB PO SCH (08:09)
[2024-03-19] MEDS: MIRALAX *UNIT DOSE* 17GM PACKET PO SCH (08:12)
[2024-03-19] MEDS: EMLA CREAM 5GM TUBE (LIDOCAINE/PRILOCAINE) TOP SCH (12:35)
[2024-03-19] MEDS: DARBEPOETIN 200MCG/0.4ML *DIALYSIS* SYRINGE IV SCH (13:43)
[2024-03-19 16:00] VITALS: TEMP 98.8; O2SAT 95
[2024-03-19] MEDS: HEPARIN 1,000UNITS/ML 10ML VIAL (FOR RADIOLOGY & DIALYSIS ONLY) XX SCH (16:16)
[2024-03-19] MEDS: CALCITONIN NASAL SPRAY 3.7ML BTL SCH (17:25)
[2024-03-19] MEDS: LevoFLOXacin 750 MG TABLET PO SCH (17:25)
[2024-03-19] MEDS: MAGNESIUM OXIDE 400MG TAB (MAG-OX) PO SCH (17:26)
[2024-03-19 20:00] VITALS: BP 135/44; TEMP 100.7; O2SAT 96
[2024-03-20 05:40] VITALS: BP 140/63; TEMP 98.8; O2SAT 92
[2024-03-20 07:56] LABS: BASO % 0.7 % (0.0-1.0); EOS # 0.2 10^3/uL (0.0-0.5); EOS % 6.8 % (0.0-3.0); HEMATOCRIT 25.6 % (36.0-47.0); HEMOGLOBIN 7.8 g/dl (12.0-15.5); LYMPH # 0.7 10^3/uL (1.5-5.0); LYMPH % 22.6 % (24.0-44.0); MEAN CORPUSCULAR HGB CONC 30.5 g/dl (32.0-36.5); MEAN CORPUSCULAR VOLUME 91.8 fl (80.0-96.0); MONO # 0.5 10^3/uL (0.0-0.8); MONO % 16.1 % (2.0-8.0); NEUTROPHILS # 1.6 10^3/uL (1.5-8.5); NEUTROPHILS % 53.5 % (36.0-66.0); PLATELET COUNT, AUTOMATED 181 10^3/uL (150-450); RED BLOOD COUNT 2.79 10^6/uL (4.00-5.40); WHITE BLOOD COUNT 2.9 10^3/uL (4.0-10.0)
[2024-03-20 08:35] LABS: BLOOD UREA NITROGEN 9 MG/DL (9-23); CARBON DIOXIDE LEVEL 30 MMOL/L (20-31); CHLORIDE LEVEL 100 MMOL/L (98-107); CREATININE FOR GFR 4.46 MG/DL (0.55-1.30); GLOMERULAR FILTRATION RATE 10.3 (>39); GLUCOSE, FASTING 87 MG/DL (74-106); MAGNESIUM LEVEL 1.6 MG/DL (1.8-2.4); POTASSIUM SERUM 3.9 MMOL/L (3.5-5.1); SODIUM LEVEL 139 MMOL/L (136-145)
[2024-03-20] MEDS ORDERED: DOXYCYCLINE HYCLATE 100MG TABLET PO SCH (09:00)
[2024-03-20] MEDS ORDERED: CALCITONIN NASAL SPRAY 3.7ML BTL SCH (09:00)
[2024-03-20 11:36] LABS: COMPLEMENT C3 71.3 MG/DL (90.0-170.0); COMPLEMENT C4 21.6 MG/DL (12-36)
[2024-03-20 12:46] VITALS: TEMP 99.8
[2024-03-20 14:00] VITALS: BP 131/54; TEMP 100; O2SAT 99
[2024-03-20 22:00] VITALS: BP 134/55; TEMP 100.3; O2SAT 97
[2024-03-21 05:41] LABS: EOS # 0.2 10^3/uL (0.0-0.5); EOS % 6.9 % (0.0-3.0); HEMATOCRIT 24.2 % (36.0-47.0); HEMOGLOBIN 7.5 g/dl (12.0-15.5); LYMPH # 0.8 10^3/uL (1.5-5.0); LYMPH % 26.5 % (24.0-44.0); MEAN CORPUSCULAR HEMOGLOBIN 28.4 pg (27.0-33.0); MEAN CORPUSCULAR VOLUME 91.7 fl (80.0-96.0); MONO # 0.5 10^3/uL (0.0-0.8); MONO % 17.6 % (2.0-8.0); NEUTROPHILS # 1.5 10^3/uL (1.5-8.5); NEUTROPHILS % 47.7 % (36.0-66.0); PLATELET COUNT, AUTOMATED 168 10^3/uL (150-450); RED BLOOD COUNT 2.64 10^6/uL (4.00-5.40); WHITE BLOOD COUNT 3.1 10^3/uL (4.0-10.0)
[2024-03-21 06:00] VITALS: BP 132/87; TEMP 99.3; O2SAT 98
[2024-03-21] MEDS ORDERED: LIDOCAINE 1% SDV 5ML VIAL SC PRN (06:00)
[2024-03-21] MEDS ORDERED: SODIUM CHLORIDE 0.9% 1000ML IV PRN (06:00)
[2024-03-21 06:12] LABS: C REACTIVE PROTEIN QUANTITATIV 8.5 MG/DL (<1.0)
[2024-03-21 06:16] LABS: CALCIUM LEVEL 7.9 MG/DL (8.3-10.6); CREATININE FOR GFR 6.39 MG/DL (0.55-1.30); GLOMERULAR FILTRATION RATE 6.8 (>39); MAGNESIUM LEVEL 1.7 MG/DL (1.8-2.4); PHOSPHORUS LEVEL 3.5 MG/DL (2.4-5.1); POTASSIUM SERUM 4.2 MMOL/L (3.5-5.1)
[2024-03-21 06:49] VITALS: BP 132/87
[2024-03-21] MEDS: HEPARIN 1,000UNITS/ML 10ML VIAL (FOR RADIOLOGY & DIALYSIS ONLY) XX SCH (08:38)
[2024-03-21 11:51] LABS: CRYOGLOBULINS NEGATIVE (NEGATIVE)
[2024-03-21] MEDS ORDERED: LOPE2CAP PO (13:00)
[2024-03-21] MEDS ORDERED: HEPARIN 1,000UNITS/ML 10ML VIAL (FOR RADIOLOGY & DIALYSIS ONLY) XX SCH (14:10)
[2024-03-21 18:07] LABS: HISTOPLASMA GAL'MANNAN AG UR Negative (<0.2 ng/mL)
== END 2024-03-21 14:21 | disposition home or self-care (01) | DRG 871 ==
LOC: M ED 09:07 → EDBD 09:07 → M ED INP 15:00 → M MSPAV 16:55
PROVIDERS: ADMIT Internal Medicine; ATTEND Internal Medicine
PROC: B246ZZZ Ultrasonography of Right and Left Heart (ICD-10-PCS; principal; 2024-03-21)
PROC: 5A1D70Z Performance of Urinary Filtration, Intermittent, Less than 6 Hours Per Day (ICD-10-PCS; 2024-03-21)
DX: A41.9 Sepsis, unspecified organism (principal); J18.9 Pneumonia, unspecified organism; N18.6 End stage renal disease; I50.32 Chronic diastolic (congestive) heart failure; J96.11 Chronic respiratory failure with hypoxia; I13.2 Hypertensive heart and chronic kidney disease with heart failure and with stage 5 chronic kidney disease, or end stage renal disease; N25.81 Secondary hyperparathyroidism of renal origin; M31.0 Hypersensitivity angiitis; G83.4 Cauda equina syndrome; J44.0 Chronic obstructive pulmonary disease with (acute) lower respiratory infection; D80.1 Nonfamilial hypogammaglobulinemia; E87.20 Acidosis, unspecified; E78.5 Hyperlipidemia, unspecified; K58.9 Irritable bowel syndrome, unspecified; H40.9 Unspecified glaucoma; D63.8 Anemia in other chronic diseases classified elsewhere; K21.9 Gastro-esophageal reflux disease without esophagitis; M81.0 Age-related osteoporosis without current pathological fracture; Z86.718 Personal history of other venous thrombosis and embolism; Z86.16 Personal history of COVID-19; Z90.49 Acquired absence of other specified parts of digestive tract; Z90.79 Acquired absence of other genital organ(s); Z87.891 Personal history of nicotine dependence; Z99.2 Dependence on renal dialysis; Z79.899 Other long term (current) drug therapy; Z88.6 Allergy status to analgesic agent; Z91.018 Allergy to other foods; Z88.8 Allergy status to other drugs, medicaments and biological substances

== ENCOUNTER → 2024-04-04 | Outpatient (REF) | payer MEDICARE, MEDICAID ==
[~2024-04-04] MED LIST changes: +ACET-897 PO; +ARNU1INH3 INH; +ATIV1TAB10 PO; +CALC200S NARES; +CULTCAP2 PO; +DIPH-356 PO; +HYOS0.1214 PO; +L. A1TAB6 PO; +LEVO1TAB39 PO; +LOPE2CAP PO; +MORP1SOL5 PO; +MORP20SO PO; +NYST-38 PO; +PHEN1SUP PR; +PROC2.5C PR; +RA A PO; +RA S0.65 NARES; +VANC250C3 PO; +[UNRECOGNIZED DRUG - CODE] PO
== END ==
PROVIDERS: ATTEND Internal Medicine Pulmonary Disease
DX: R91.8 Other nonspecific abnormal finding of lung field (principal); R19.7 Diarrhea, unspecified

== ENCOUNTER → 2024-04-08 | Outpatient (REF) | payer MEDICARE, MEDICAID ==
[~2024-04-08] MED LIST changes: -ACET-897 PO; -ARNU1INH3 INH; -ATIV1TAB10 PO; -CULTCAP2 PO; -DIPH-356 PO; -HYOS0.1214 PO; -L. A1TAB6 PO; -MORP1SOL5 PO; -MORP20SO PO; -PHEN1SUP PR; -PROC2.5C PR; -RA A PO; -[UNRECOGNIZED DRUG - CODE] PO
== END ==
LOC: M SFHCPLAZ 11:55
PROVIDERS: ATTEND Family Medicine
DX: E89.0 Postprocedural hypothyroidism (principal)

== ENCOUNTER 2024-04-11 15:15 | Inpatient (IN) | payer MEDICARE, MEDICAID ==
[~2024-04-11] VITALS: Ht 157.5 cm; Wt 71.6 kg
[2024-04-11] MEDS ORDERED: ATROPINE SULFATE 1% OPHTH SOLN 2ML BTL SL PRN (15:50)
[2024-04-11] MEDS ORDERED: PRED10TA2 PO (20:53)
[2024-04-11] MEDS ORDERED: ACET-897 PO (20:53)
[2024-04-11] MEDS ORDERED: ARNU1INH3 INH (20:53)
[2024-04-11] MEDS ORDERED: L. A1TAB6 PO (20:53)
[2024-04-12] MEDS ORDERED: HYOS0.1214 PO (03:21)
[2024-04-12] MEDS ORDERED: PHEN1SUP PR (03:21)
[2024-04-12] MEDS ORDERED: ATIV1TAB10 PO (03:21)
[2024-04-12] MEDS ORDERED: MORP20SO PO (03:21)
[2024-04-12] MEDS ORDERED: ACET-897 PO (03:21)
[2024-04-12] MEDS ORDERED: PROC2.5C PR (03:21)
[2024-04-12] MEDS ORDERED: [UNRECOGNIZED DRUG - CODE] PO (03:21)
[2024-04-12] MEDS ORDERED: RA A PO (03:21)
[2024-04-12] MEDS ORDERED: CULTCAP2 PO (03:21)
[2024-04-12] MEDS ORDERED: HOME MED LIST COMPLETE! XX SCH (03:25)
[2024-04-12] MEDS: SCOPOLAMINE 1MG TRANSDERMAL PATCH TOP PRN (04:22)
[2024-04-12] MEDS: LORazepam 2 MG/ML 1ML VIAL IV PRN (04:22)
[2024-04-12] MEDS: LEVOTHYROXINE 100MCG TABLET (0.1MG) PO SCH (06:00)
[2024-04-12] MEDS: MORPHINE 2 MG/ML 1ML VIAL IV PRN (10:48)
[2024-04-12] MEDS: **hydrALAZINE** 50 MG TAB PO SCH (14:00)
[2024-04-12] MEDS ORDERED: ALBUTEROL SULFATE 2.5MG/0.5ML INH NEB SOLN INH PRN (15:10)
[2024-04-12] MEDS ORDERED: ALBUTEROL 90 MCG/ACT 8GM HFA INHALER INH PRN (15:10)
[2024-04-12] MEDS: SODIUM CHLORIDE NASAL 0.65% SPRAY BTL (OCEAN) SCH (16:00)
[2024-04-12] MEDS: DICYCLOMINE 10 MG CAP PO SCH (16:00)
[2024-04-12] MEDS: SIMETHICONE 80MG CHEW TAB PO SCH (17:00)
[2024-04-12] MEDS: AZELASTINE 137MCG NASAL SPY 30 ML (ASTELIN) SCH (21:00)
[2024-04-12] MEDS: LOSARTAN 50MG TABLET PO SCH (21:19)
[2024-04-12] MEDS: amLODIPine 5 MG TAB PO SCH (21:20)
[2024-04-12] MEDS: CETIRIZINE (ZyrTEC) 10 MG TAB PO SCH (21:20)
[2024-04-12] MEDS: METOPROLOL TART 50 MG TAB PO SCH (21:20)
[2024-04-13] MEDS ORDERED: guaiFENesin DM *SUGAR FREE* 5ML**DIABETIC TUSSIN DM PO PRN (04:15)
[2024-04-13] MEDS: guaiFENesin ER TABLET 600 MG TAB PO SCH (09:34)
[2024-04-13] MEDS: ONDANSETRON 4MG 2ML VIAL IV PRN (09:39)
[2024-04-14] MEDS: **hydrALAZINE HCL** 25 MG TAB PO SCH (04:39)
[2024-04-14] MEDS ORDERED: diphenhydrAMINE 12.5MG/5ML ELIXIR UDC PO PRN (16:55)
[2024-04-14] MEDS: MORPHINE 10MG/0.5ML ORAL CONCENTRATE SOLUTION U/D SL PRN (16:57)
[2024-04-14] MEDS: ONDANSETRON 4MG ORAL DISINTEGRATING TAB PO PRN (16:57)
[2024-04-14] MEDS: LORazepam 1 MG TAB PO PRN (16:58)
[2024-04-15] MEDS ORDERED: MORP1SOL5 PO (09:10)
[2024-04-15] MEDS ORDERED: DIPH-356 PO (09:10)
[2024-04-15] MEDS ORDERED: ATIV1TAB10 PO (09:10)
== END 2024-04-15 14:30 | DRG 951 ==
LOC: M MS5PR 15:15 → OBSVTOIN 15:48
PROVIDERS: ADMIT Internal Medicine; ATTEND Student in an Organized Health Care Education/Training Program
DX: Z51.5 Encounter for palliative care (principal); N18.6 End stage renal disease; G93.41 Metabolic encephalopathy; J96.11 Chronic respiratory failure with hypoxia; I50.32 Chronic diastolic (congestive) heart failure; I13.2 Hypertensive heart and chronic kidney disease with heart failure and with stage 5 chronic kidney disease, or end stage renal disease; N17.9 Acute kidney failure, unspecified; K58.9 Irritable bowel syndrome, unspecified; D63.8 Anemia in other chronic diseases classified elsewhere; J44.9 Chronic obstructive pulmonary disease, unspecified; G47.33 Obstructive sleep apnea (adult) (pediatric); E78.5 Hyperlipidemia, unspecified; E05.00 Thyrotoxicosis with diffuse goiter without thyrotoxic crisis or storm; K21.9 Gastro-esophageal reflux disease without esophagitis; M81.0 Age-related osteoporosis without current pathological fracture; Z86.718 Personal history of other venous thrombosis and embolism; Z86.16 Personal history of COVID-19; Z90.49 Acquired absence of other specified parts of digestive tract; Z90.79 Acquired absence of other genital organ(s); Z87.891 Personal history of nicotine dependence; Z79.890 Hormone replacement therapy; Z79.899 Other long term (current) drug therapy; Z88.8 Allergy status to other drugs, medicaments and biological substances; Z88.6 Allergy status to analgesic agent; Z99.81 Dependence on supplemental oxygen; Z91.048 Other nonmedicinal substance allergy status; Z99.2 Dependence on renal dialysis